=== PATIENT | female | born 1965 | race Caucasian/White ===

== ENCOUNTER 2016-07-02 13:29 | Inpatient (IN) | payer OTHER ==
[~2016-07-02] VITALS: Ht 160 cm; Wt 89.9 kg
[2016-07-02] MEDS ORDERED: ASPIRIN 325 MG TAB PO STA (14:20)
[2016-07-02] MEDS ORDERED: FUROSEMIDE 40 MG INJ IV STA (14:20)
[2016-07-02] MEDS ORDERED: NITROGLYCERIN 2% 1 GM OINT PKT TD STA (14:20)
[2016-07-02] MEDS ORDERED: FUROSEMIDE 40 MG INJ IV ONE (14:30)
[2016-07-02] MEDS ORDERED: SITA1TAB5 PO (14:44)
[2016-07-02] MEDS ORDERED: INSU300I SQ (14:45)
[2016-07-02] MEDS ORDERED: DIGO125T PO (14:45)
[2016-07-02] MEDS ORDERED: CARV25TA79 PO (14:46)
[2016-07-02] MEDS ORDERED: SIMV20TA97 PO (14:46)
[2016-07-02] MEDS ORDERED: WARF6TAB PO (14:47)
[2016-07-02] MEDS ORDERED: BENA5TAB2 PO (14:47)
[2016-07-02] MEDS ORDERED: OMEP20CA16 PO (14:47)
[2016-07-02 14:58] LABS: BASOPHILS % 0.1 % (0.0-2.0); EOSINOPHILS # 0.2 10^3/ul (0.0-0.5); EOSINOPHILS % 2.7 % (0.0-7.0); HEMOGLOBIN 10.7 g/dl (12.0-16.0); LYMPHOCYTES # 0.9 10^3/ul (0.8-2.9); LYMPHOCYTES % 12.3 % (15.0-51.0); MEAN CORPUSCULAR HEMOGLOBIN 27.6 pg (29.0-33.0); MEAN CORPUSCULAR HGB CONC 32.4 g/dl (32.0-37.0); MEAN CORPUSCULAR VOLUME 85.1 fl (82.0-101.0); MEAN PLATELET VOLUME 8.6 fl (7.4-10.4); MONOCYTE # 0.5 10^3/ul (0.3-0.9); MONOCYTES % 6.2 % (0.0-11.0); NEUTROPHIL # 5.9 10^3/ul (1.6-7.5); NEUTROPHILS % 78.7 % (39.0-77.0); PLATELET COUNT 214 10^3/UL (140-440); RED BLOOD COUNT 3.88 10^6/ul (4.20-5.40); RED CELL DISTRIBUTION WIDTH 16.2 % (11.5-14.5); UNCORRECTED WBC 7.5 10^3/ul (4.8-10.8); WHITE BLOOD COUNT 7.5 10^3/ul (4.8-10.8)
[2016-07-02 15:01] LABS: CONDITION 1; LH ANALYZER COMMENTS 1
--- NOTE | 2016-07-02 15:05 | RADRPT ---
PROCEDURE: Chest 1 views. CLINICAL INDICATION: Chest pain TECHNIQUE: AP views of the chest were obtained. COMPARISON: None. FINDINGS: The heart is large. Mediasternotomy wires are seen overlying the heart. Prominence of the left hilum is observed. Central pulmonary vascular congestion is observed. Scattered atelectasis is noted at the lung bases. No consolidations are identified. No pneumothorax is seen. Osseous structures ar e intact. IMPRESSION: Cardiomegaly. Pericardial effusion is not excluded. Prominence of the left hilum. This could reflect prominent vasculature.. Underlying hilar adenopat hy or mass is not excluded. Further characterization with CT chest is recommended. Central pulmonary vascular congestion. Atelectasis at the lung bases. RPTAT: AA .Billy Alvarez MD, Date Time Electronically viewed and signed by .Billy Alvarez MD, on 07/02/2016 15:04 .P/
[2016-07-02 15:10] LABS: INR 2.18; PARTIAL THROMBOPLASTIN TIME 35.1 Sec (25.0-35.0); PROTIME 24.5 Sec (12.2-14.2); PT RATIO 1.9
[2016-07-02 15:16] LABS: ALBUMIN 3.8 g/dl (3.3-4.9)
[2016-07-02 15:17] LABS: POTASSIUM 4.5 mmol/L (3.5-5.1)
[2016-07-02 15:19] LABS: ALBUMIN/GLOBULIN RATIO 1.22; BILIRUBIN,INDIRECT 0.7 mg/dl (0-1.1); BILIRUBIN,TOTAL 0.7 mg/dl (0.2-1.3); CREATININE 0.72 mg/dl (0.44-1.00); TOTAL PROTEIN 6.9 g/dl (6.1-8.1)
[2016-07-02 15:20] LABS: CALCIUM 9.1 mg/dl (8.4-10.2); CREATINE KINASE 42 IU/L (23-200)
[2016-07-02 15:29] LABS: CK-MB 0.26 ng/ml (0.0-2.4)
[2016-07-02 15:34] LABS: TROPONIN-I < 0.012 ng/ml (0.00-0.12)
--- NOTE | 2016-07-02 16:54 | ERA ---
ER Documentation Chief Complaint Date/Time DATE: 07/02/16 TIME: 16:50 Chief Complaint SOB X 1 week, referred to MD for possible fluid in lungs. HPI 51-year-old female history of hypertension, valvular heart disease on Coumadin who presents with shortness of breath. The patient describes PND orthopnea dyspnea on exertion and lower extremity swelling for approximately 1 week. She denies any fevers, chills, cough. No active chest pain. ROS All systems reviewed and are negative except as per history of present illness. Medications Home Meds Reported Medications Omeprazole* (Omeprazole*) 20 Mg Capsule.dr, 20 MG PO AC BREAKFAST, #30 CAP 07/02/16 Warfarin Sodium* (Coumadin*) 6 Mg Tablet, 6 MG PO DAILY, TAB 07/02/16 Benazepril Hcl* (Benazepril Hcl*) 5 Mg Tablet, 5 MG PO DAILY, #30 TAB 07/02/16 Carvedilol* (Carvedilol*) 25 Mg Tablet, 25 MG PO BID, #60 TAB 07/02/16 Simvastatin* (Zocor*) 20 Mg Tablet, 20 MG PO QHS, #30 TAB 07/02/16 Digoxin* (Digitek*) 125 Mcg Tablet, 0.125 MG PO DAILY, TAB 07/02/16 Insulin Glargine,Hum.rec.anlog (Cynthia Smith) 300 Unit/1 Ml Insuln.pen, 97 UNIT SQ QHS 07/02/16 Sitagliptin Phos/Metformin HCl (Janumet 50-1,000 mg Tablet) 1 Each Tablet, 1 EACH PO BID, TAB 07/02/16 Allergies Allergies: Coded Allergies: morphine (Verified Allergy, Unknown, 07/02/16) FmHx Family History: No diabetes Physical Exam Vitals Vital Signs Date Time Temp Pulse Resp B/P Pulse Ox O2 Delivery O2 Flow Rate FiO2 07/02/16 15:12 75 20 105/64 96 Room Air 07/02/16 13:57 97.5 98 16 129/69 96 Physical Exam General: Well developed, well nourished, no acute distress Head: Normocephalic, atraumatic. Eyes: Pupils equally reactive, EOM intact ENT: Moist mucous membranes Neck: Supple, no lymphadenopathy, JVD Respiratory: Rales at the bases bilaterally Cardiovascular: RRR, no murmurs, rubs, or gallops Abdominal: Soft, non-tender, non-distended, no peritoneal signs : Deferred MSK: Scant pitting bilateral edema, no unilateral swelling, 5/5 strength Neurologic: Alert and oriented, moving all extremities, normal speech, no focal weakness, no cerebellar signs Skin: No rash Psych: Normal mood Result Diagram: 07/02/16 1440 07/02/16 1440 Results 24 hrs Laboratory Tests Test 07/02/16 14:40 Activated Partial Thromboplast Time 35.1Sec Alanine Aminotransferase (ALT/SGPT) 30IU/L Albumin 3.8g/dl Albumin/Globulin Ratio 1.22 Alkaline Phosphatase 59IU/L Anion Gap 18 Aspartate Amino Transf (AST/SGOT) 33IU/L B-Type Natriuretic Peptide 1690PG/ML Basophils # 0.010^3/ul Basophils % 0.1% Blood Morphology Comment Blood Urea Nitrogen 19mg/dl Calcium Level 9.1mg/dl Carbon Dioxide Level 31mmol/L Chloride Level 100mmol/L Creatine Kinase 42IU/L Creatine Kinase Index 0.6 Creatinine 0.72mg/dl Creatinine Kinase MB (Mass) 0.26ng/ml Direct Bilirubin 0.00mg/dl Eosinophils # 0.210^3/ul Eosinophils % 2.7% Globulin 3.10g/dl Glucose Level 92mg/dl Hematocrit 33.0% Hemoglobin 10.7g/dl INR International Normalized Ratio 2.18 Indirect Bilirubin 0.7mg/dl Lymphocytes # 0.910^3/ul Lymphocytes % 12.3% Mean Corpuscular Hemoglobin 27.6pg Mean Corpuscular Hemoglobin Concent 32.4g/dl Mean Corpuscular Volume 85.1fl Mean Platelet Volume 8.6fl Monocytes # 0.510^3/ul Monocytes % 6.2% Neutrophils # 5.910^3/ul Neutrophils % 78.7% Nucleated Red Blood Cells # 0.010^3/ul Nucleated Red Blood Cells % 0.0/100WBC Platelet Count 87779^3/UL Potassium Level 4.5mmol/L Prothrombin Time 24.5Sec Prothrombin Time Ratio 1.9 Red Blood Count 3.8810^6/ul Red Cell Distribution Width 16.2% Sodium Level 144mmol/L Total Bilirubin 0.7mg/dl Total Protein 6.9g/dl Troponin I < 0.012ng/ml White Blood Count 7.510^3/ul Current Medications Medications (Trade) Dose Ordered Sig/Mallika Route PRN Reason Start Time Stop Time Status Last Admin Dose Admin Aspirin (Aspirin) 325 mg ONCE STAT PO 07/02/16 14:20 07/02/16 14:23 DC 07/02/16 15:07 Nitroglycerin (Nitroglycerin 2% Oint) 1 inch ONCE STAT TD 07/02/16 14:20 07/02/16 14:23 DC Furosemide (Lasix) 40 mg ONCE STAT IV 07/02/16 14:20 07/02/16 14:23 DC 07/02/16 15:16 Furosemide (Lasix) 40 mg ONCE ONCE IV 07/02/16 14:30 07/02/16 14:31 DC Procedures/MDM EKG, MONITORS, & DIAGNOSTIC IMAGING: EKG: I reviewed and interpreted a 12-lead EKG. Rhythm: Normal sinus rhythm Ectopy: None Intervals: No abnormalities ST segments: No elevations or depressions T waves: No contiguous inversions Chest x-ray: I reviewed and interpreted a 1 view of the chest Mediastinum: No enlargement Cardiac silhouette: cardiomegaly Airspace: Pulmonary edema Bones: No evidence of fracture LAB INTERPRETATION: Elevated BNP MEDICAL DECISION MAKING: The patient's clinical exam and presentation is very consistent with acute, new onset decompensated congestive heart failure. Low concern for pneumonia, pulmonary embolism. This is most likely related to underlying valvular disease rather than acute coronary syndrome. ER COURSE: The patient was given Lasix. She continues to be resting comfortably. No indication for BiPAP or nitroglycerin drip. The patient will benefit from inpatient hospitalization for risk stratification, echocardiogram and medication management and optimization. I kept the patient and/or family informed of laboratory and diagnostic imaging results throughout the emergency room course. DISPOSITION PLAN: Telemetry admission for management of CHF CONSULTATION: Accepting care team and consultations: I discussed the current laboratory data, diagnostic imaging and emergency care provided. Admitting team: Dr. Jaramillo Admitting team indication: Insurance directed Departure Diagnosis: Primary Impression: Congestive heart failure Qualified Code: I50.9 - Acute congestive heart failure, unspecified congestive heart failure type Condition: Stable LALO SCOTT MD Jul 02, 2016 16:54
[2016-07-02] MEDS ORDERED: ACETAMINOPHEN 325 MG TAB PO PRN ×2 (17:30→18:30)
[2016-07-02] MEDS ORDERED: ONDANSETRON 4 MG INJ IV PRN ×2 (17:30→18:30)
[2016-07-02] MEDS ORDERED: MAGNESIUM HYDROXIDE 30ML CUP PO PRN (18:30)
[2016-07-02] MEDS ORDERED: ALBUTEROL/IPRATROPIUM (NEB) 3 ML AMP HHN PRN (18:30)
[2016-07-02] MEDS ORDERED: NACL 0.9% 3 ML SYG IV SCH (18:30)
[2016-07-02] MEDS ORDERED: HYDROCODONE/APAP (5/325) TAB PO PRN (18:30)
[2016-07-02] MEDS ORDERED: NITROGLYCERIN (SL) 0.4 MG TAB SL PRN (18:30)
[2016-07-02] MEDS ORDERED: hydrALAzine 20 MG INJ IV PRN (18:30)
[2016-07-02] MEDS ORDERED: DOCUSATE SODIUM 100 MG CAP PO PRN (18:30)
[2016-07-02] MEDS ORDERED: morphine 2 MG INJ IV PRN (18:30)
[2016-07-02] MEDS ORDERED: NA PHOSPHATE/BIPHOS 133 ML ENEMA PR PRN (18:30)
[2016-07-02] MEDS ORDERED: LORAZEPAM 2 MG INJ IV PRN (18:30)
--- NOTE | 2016-07-02 20:02 | HP ---
DATE OF ADMISSION: 07/02/2016 This is a 51-year-old female. CHIEF COMPLAINT: Shortness of breath. HISTORY OF PRESENT ILLNESS: A 51-year-old female with past medical history of hypertension and valv ular heart disease, on Coumadin, who presents with shortness of breath symptoms that have been going on for the last 4 days. She has had some PND and positive orthopnea symptoms. She has been taking Coumadin at home. Did not take any new medications as well. She has noticed some lower extremity swelling as well for about the past week as well, but denies any significant chest pain, no headache s or dizziness or loss of consciousness, no fevers or chills, no nausea, vomiting, no diarrhea, no c onstipation. When she came into the ER today, she was found with elevated BNP levels of around 1600 and her chest x-ray did show signs of pulmonary congestion, CHF. The patient was given Lasix in th e ER. PAST MEDICAL HISTORY: As stated above. ALLERGIES: MORPHINE. HOME MEDICATIONS: Include: 1. Coumadin 6 mg daily. 2. Benazepril 5 mg daily. 3. Coreg 25 mg b.i.d. 4. Digoxin 0.125 mg daily. 5. Zocor 20 mg at bedtime. 6. Omeprazole 20 mg every morning. 7. She is on this glargine analog insulin 97 units at bedtime, and Janumet one tab p.o. b.i .d. PAST SURGICAL HISTORY: She has had heart valve surgery in the past. Heart surgery in the past, unc lear when. SOCIAL HISTORY: Negative for smoking, drinking, or IV drug abuse. FAMILY HISTORY: Noncontributory. PHYSICAL EXAMINATION: VITAL SIGNS: T-max 97.5, pulse of 75 to 98, respirations 16 to 20, blood pressure 105 to 129 systol ic over 64 to 69 diastolic, saturating at 96% on room air. GENERAL: The patient is lying in bed, answering questions appropriately, in mild distress. HEENT: Pupils equal, round, react to light. Extraocular muscles intact. NECK: Supple, no thyromegaly. LUNGS: Mild crackles heard at the bases bilaterally and positive rales as well. CARDIOVASCULAR: S1 and S2 heard. No rubs or gallops. ABDOMEN: Soft, nontender, nondistended. Normal bowel sounds. No rebound, guarding. MUSCULOSKELETAL: She has got about 1+ pitting edema bilateral lower extremities to the mid calves. NEUROLOGIC: No focal deficits. LABORATORIES: CBC is completely normal. Comprehensive metabolic panel was normal. BNP is 1690. C hest x-ray again shows central pulmonary vascular congestion. There is pericardial effusion, cannot be excluded a there is cardiomegaly. ASSESSMENT AND PLAN: This is a 51-year-old female coming in with PND, orthopnea, shortness of breath symptoms for the las t 3 or 4 days, and lower extremity edema, signs of congestive heart failure exacerbations. 1. Shortness of breath secondary to congestive heart failure. We will admit her to telemetry floor . We will get a cardiology consult, put her on Lasix IV, keep the head of the bed greater than 30 d egrees. Will hold her beta pa and LES inhibitor for now. She is in acute congestive heart felton lure exacerbation. We will get a 2D echocardiogram as well. Will check a TSH, A1c, and lipid panel as well. Will get a PT consult as well. 2. History of valvular disease, again status post valve replacement. We will get the echocardiogr am for further identification and she is on Coumadin for that, so we will continue Coumadin, check a n INR every morning. Right now her INR is 2.18. 3. Hypertension. Again, blood pressure is presently stable. Continue hydralazine p.r.n. We are h olding her LES inhibitor, beta pa since she is in acute failure. 4. Gastrointestinal prophylaxis. We will put her on PPI. 5. Deep venous thrombosis prophylaxis. Again, she is on Coumadin already. Dictated By: PIERCE LLAMAS Conf#: [id number] DID#: [id number]
--- NOTE | 2016-07-02 21:07 | RADRPT ---
PROCEDURE: CT Chest without contrast. CLINICAL INDICATION: Dyspnea and congestive heart failure. TECHNIQUE: CT scan of the chest without contrast was performed on a multidetector high-resolution CT scanner. Coronal and sagittal reformatted images were obtained from the axial source images. The total exam CTDI equals 14.79 mGy and the total exam DLP equals 517.34 mGy-cm. COMPARISON: Plain film chest dated today, earlier in the day. FINDINGS: Bilateral patchy ground-glass opacities and lucencies suggesting sequela of small airway disease. M ild bilateral dependent atelectasis, greater at the posterior left costophrenic angle. Mild mid lung atelectasis at the left heart border. Otherwise, there is no evident focal opacification, effusion , pneumothorax, edema, or nodules are seen. There is no pulmonary infiltrate. No mass lesion to gold ggest neoplasm is identified. The central tracheobronchial tree is clear. Nonspecific bilateral superior mediastinum shoddy adenopathy. Otherwise, the mediastinum is unremar kable without evidence for mass or bulky lymphadenopathy. The vascular structures of the mediastinu m are normal in course and caliber. Aortic vascular calcifications and coronary artery calcificatio ns are present. The heart size is enlarged, without evidence for pericardial thickening or effusion . The axillary regions, subpectoral regions, and supraclavicular regions are all unremarkable. The gold rrounding chest wall is unremarkable. Imaging obtained through the upper abdomen reveals partially visualized mild to moderate ascites, seen over the liver and spleen. The surrounding osseous structures are remarkable for degenerative spondylosis of the spine. No ost eolytic or osteoblastic lesion is detected. IMPRESSION: 1. Small right pleural effusion. 2. Cardiomegaly, without pericardial thickening or pericardial effusion. 3. Nonspecific bilateral superior mediastinum shoddy adenopathy. 4. Patchy ground-glass opacities lucencies in the bilateral lung suggest sequela of small airway di sease, otherwise nonspecific. 5. Bilateral dependent atelectasis, greater at the posterior left costophrenic angle. 6. Partially visualized mild to moderate ascites over the liver and spleen. RPTAT: [facility]U Pippa Cobb, Physician Date Time Electronically viewed and signed by Pippa Cobb Physician on 07/02/2016 21:07 RS/
[2016-07-02] MEDS: ATORVASTATIN 10 MG TAB PO SCH (21:54)
[2016-07-03] VITALS (7 sets, daily range): BP systolic 133–145; BP diastolic 63–72; PULSE 58–96; RESP 18–20; TEMP 98.6; Ht 160 cm; Wt 89.9 kg
[2016-07-03 02:41] LABS: CREATINE KINASE 35 IU/L (23-200)
[2016-07-03 02:53] LABS: CK-MB 0.32 ng/ml (0.0-2.4)
[2016-07-03 03:13] LABS: TROPONIN-I < 0.010 ng/ml (0.00-0.12)
[2016-07-03 06:21] LABS: INR 2.08; PROTIME 23.6 Sec (12.2-14.2); PT RATIO 1.8
[2016-07-03 06:27] LABS: POTASSIUM 4.2 mmol/L (3.5-5.1)
[2016-07-03 06:28] LABS: BASOPHILS % 0.3 % (0.0-2.0); EOSINOPHILS # 0.2 10^3/ul (0.0-0.5); HEMATOCRIT 31.4 % (37.0-47.0); HEMOGLOBIN 10.3 g/dl (12.0-16.0); LYMPHOCYTES # 1.1 10^3/ul (0.8-2.9); MEAN CORPUSCULAR HEMOGLOBIN 28.1 pg (29.0-33.0); MEAN CORPUSCULAR HGB CONC 32.8 g/dl (32.0-37.0); MEAN CORPUSCULAR VOLUME 85.8 fl (82.0-101.0); MEAN PLATELET VOLUME 8.5 fl (7.4-10.4); MONOCYTE # 0.5 10^3/ul (0.3-0.9); MONOCYTES % 8.2 % (0.0-11.0); NEUTROPHIL # 4.5 10^3/ul (1.6-7.5); NEUTROPHILS % 71.5 % (39.0-77.0); PLATELET COUNT 208 10^3/UL (140-440); RED BLOOD COUNT 3.66 10^6/ul (4.20-5.40); RED CELL DISTRIBUTION WIDTH 16.2 % (11.5-14.5); UNCORRECTED WBC 6.3 10^3/ul (4.8-10.8); WHITE BLOOD COUNT 6.3 10^3/ul (4.8-10.8)
[2016-07-03 06:30] LABS: CREATININE 0.83 mg/dl (0.44-1.00)
[2016-07-03 06:31] LABS: CALCIUM 8.7 mg/dl (8.4-10.2); MAGNESIUM 1.6 mg/dl (1.7-2.5); PHOSPHORUS 5.8 mg/dl (2.5-4.9)
[2016-07-03 06:32] LABS: CHOL/HDL RATIO 5.1 RATIO
[2016-07-03 06:37] LABS: CONDITION 1; LH ANALYZER COMMENTS 1
[2016-07-03 07:01] LABS: THYROID STIMULATING HORMONE 7.81 MIU/L (0.465-4.680)
[2016-07-03] MEDS ORDERED: FUROSEMIDE 40 MG INJ IV SCH (09:00)
[2016-07-03] MEDS: PANTOPRAZOLE (EC) 40 MG TAB PO SCH (10:08)
--- NOTE | 2016-07-03 10:29 | RADRPT ---
Echocardiogram Report Patient Name: ALICJA ALVARENGA Gender: Female Date: 1965 Study Date: 03-Jul-2016 Account Liaison Hospice: Javier Franklin RDCS Location: [facility] Ref. Physician: PIERCE ESPINOZA Quality: Adequate Procedures: Transthoracic echocardiogram with complete 2D, M-Mode, and doppler examination. Indications: Congestive Heart Failure. 2D/M Mode Doppler Measurement Value Normal Ranges Measurement Value Normal Ranges LVIDd 2D 5.2 3.5 - 5.6 cm AYAZ Vmax 2.9 cm2 LVIDs 2D 3.7 2.1 - 4.1 cm AYAZ VTI 2.9 cm2 LVPWd 2D 1.0 0.6 - 1.1 cm AV Peak Walter 1.2 m/sec IVSd 2D 0.8 0.6 - 1.1 cm AV Peak PG 5.6 mmHg AoR Diam 2D 2.8 2.0 - 3.7 cm LVOT Mean Walter 0.7 m/sec EDV 2D 131.7 cm3 LVOT Mean PG 2.0 mmHg ESV 2D 50.8 cm3 LVOT Peak Walter 0.9 m/sec LA Dimen 2D 5.0 2.3 - 4.0 cm LVOT Peak PG 3.2 mmHg LVOT Diam 2.2 cm LVOT VTI 21.6 cm MV PHT 144.1 msec MV Peak Walter 2.3 m/sec MV Peak PG 20.5 mmHg MV Mean Walter 1.3 m/sec MV Mean PG 7.8 mmHg MV PHT 144.1 msec MV VTI 60.0 cm MVA PHT 1.5 cm2 TR Peak Walter 3.6 m/sec TR Peak PG 52.2 mmHg RVSP 60.0 mmHg Findings Left Ventricle: Normal left ventricular cavity size. Normal left ventricular wall thickness. Mild left ventricular systolic dysfunction. Ejection fraction is visually estimated at 4550 %. Tissue Doppler/Mitral Doppler indices are indeterminate in this study due to the presence of mitral valve replacement. Resting Segmental Wall Motion Analysis: Abnormal septal motion consistent with prior cardiac surgery. D-shaped septum consistent with RV pressure/volume overload. Right Ventricle: Severe enlargement of right ventricle. Severe right ventricular hypokinesis. Flattened septum in systole and diastole consistent with increased RV pressure and volume overload. Left Atrium: There is severe enlargement of left atrium. Right Atrium: There is severe enlargement of right atrium. Mitral Valve: Mild mitral valve regurgitation. Mitral Valve Bio Prosthesis. Mitral valve Max Velocity 2.26 m/sec. MaxPG 20.50 mmHg. MeanPG 7.80 mmHg. Mitral Valve Area by PHT cm2. Bioprosthetic mitral valve with elevated gradients (peak/mean gradient of 20/8 mmHg). MVA by continuity equation is \R\1.2cm2. It would be useful to know what her baseline gradients are. Aortic Valve: Normal appearance of the aortic valve. No significant aortic stenosis or insufficiency. Tricuspid Valve: Normal appearance of the tricuspid valve. Estimated peak PA systolic pressure 67 mmHg. There is moderate to severe tricuspid regurgitation. Pulmonic Valve: There is mild pulmonic regurgitation. Pericardium: Normal pericardium with no significant pericardial effusion. Aorta: Normal aortic root. IVC: Dilated IVC without respiratory collapse consistent with elevated right atrial pressure. Conclusions 1.Normal left ventricular cavity size. Normal left ventricular wall thickness. Mild left ventricular systolic dysfunction. Ejection fraction is visually estimated at 45-50 %. Tissue Doppler/Mitral Doppler indices are indeterminate in this study due to the presence of mitral valve replacement. Abnormal septal motion consistent with prior cardiac surgery. D-shaped septum consistent with RV pressure/volume overload. 2.Severe enlargement of right ventricle. Severe right ventricular hypokinesis. 3.Bioprosthetic mitral valve with elevated gradients (peak/mean gradient of 20/8 mmHg). MVA by continuity equation is \R\1.2cm2 at a hear rate of 70 bpm. It would be useful to know what her baseline gradients are. There is mild regurgitation. 4.Moderate-severe tricuspid regurgitation. 5.Severe biatrial enlargement. 6.PAP estimated to be 67 mmHg based on RA pressure of 15 mmHg. Electronically Signed By: Scott Ricci 03-Jul-2016 10:28:53 -0800 Patient Name: ALICJA ALVARENGA Study Date: 03-Jul-[id number]
--- NOTE | 2016-07-03 10:49 | PN ---
Date/Time of Note Date/Time of Note DATE: 07/03/16 TIME: 10:44 Assessment/Plan VTE Prophylaxis VTE Prophylaxis Intervention: other (Coumadin) Lines/Catheters IV [facility] [place] Assessment/Plan Chief Complaint/Hosp Course ASSESSMENT AND PLAN: 51-year-old female coming in with PND, orthopnea, shortness of breath symptoms for the last 3 or 4 days, and lower extremity edema , signs of congestive heart failure exacerbation. 1. Shortness of breath - slightly improved. Suspect secondary to congestive heart failure. ECHO results noted (see procedure report) - continue telemetry floor care, f/u cardiology consult, discuss ECHO results (EF = 45%, RV enlargement, +TR) - component of pulm HTN? - continie Lasix IV, keep the head of the bed greater than 30 degrees. - holding her beta pa and LES inhibitor for now until CV eval and when acute CHF improves. - f/u PT consult rec's as well. 2. History of valvular disease, again status post valve replacement - apprears to be aortic valve. - continue Coumadin for that - f/u INR every morning. Right now her INR is 2.08 3. Hypertension. Again, blood pressure is presently stable. - Continue hydralazine p.r.n. - again, we are holding her LES inhibitor, beta pa since she is in acute failure. 4. Gastrointestinal prophylaxis - PPI. 5. Deep venous thrombosis prophylaxis. Again, she is on Coumadin already. Problems: Subjective 24 Hr Interval Summary Free Text/Dictation Less SOB, no acute events overnight, awaiting CV eval. Exam/Review of Systems Vital Signs Vitals Vital Signs Date Time Temp Pulse Resp B/P Pulse Ox O2 Delivery O2 Flow Rate FiO2 07/03/16 08:13 69 07/03/16 06:32 Nasal Cannula 2 07/03/16 05:30 98.6 19 129/63 94 Results Result Diagram: 07/03/16 0543 07/03/16 0543 Results 24 hrs Laboratory Tests Test 07/02/16 14:40 07/02/16 18:49 07/03/16 02:12 07/03/16 05:43 Activated Partial Thromboplast Time 35.1 H Alanine Aminotransferase (ALT/SGPT) 30 Albumin 3.8 Albumin/Globulin Ratio 1.22 Alkaline Phosphatase 59 Anion Gap 18 H 17 H Aspartate Amino Transf (AST/SGOT) 33 B-Type Natriuretic Peptide 1690 H Basophils # 0.0 0.0 Basophils % 0.1 0.3 Blood Morphology Comment Blood Urea Nitrogen 19 20 Calcium Level 9.1 8.7 Carbon Dioxide Level 31 31 Chloride Level 100 101 Creatine Kinase 42 35 Creatine Kinase Index 0.6 0.9 Creatinine 0.72 0.83 Creatinine Kinase MB (Mass) 0.26 0.32 Direct Bilirubin 0.00 Eosinophils # 0.2 0.2 Eosinophils % 2.7 3.0 Free Thyroxine 1.14 Globulin 3.10 Glucose Level 92 101 Hematocrit 33.0 L 31.4 L Hemoglobin 10.7 L 10.3 L INR International Normalized Ratio 2.18 2.08 Indirect Bilirubin 0.7 Lymphocytes # 0.9 1.1 Lymphocytes % 12.3 L 17.0 Mean Corpuscular Hemoglobin 27.6 L 28.1 L Mean Corpuscular Hemoglobin Concent 32.4 32.8 Mean Corpuscular Volume 85.1 85.8 Mean Platelet Volume 8.6 8.5 Monocytes # 0.5 0.5 Monocytes % 6.2 8.2 Neutrophils # 5.9 4.5 Neutrophils % 78.7 H 71.5 Nucleated Red Blood Cells # 0.0 0.0 Nucleated Red Blood Cells % 0.0 0.0 Platelet Count 214 208 Potassium Level 4.5 4.2 Prothrombin Time 24.5 H 23.6 H Prothrombin Time Ratio 1.9 1.8 Red Blood Count 3.88 L 3.66 L Red Cell Distribution Width 16.2 H 16.2 H Sodium Level 144 145 H Total Bilirubin 0.7 Total Protein 6.9 Troponin I < 0.012 < 0.010 White Blood Count 7.5 6.3 Bedside Glucose 69 L Cholesterol Level 108 Cholesterol/HDL Ratio 5.1 HDL Cholesterol 21 L Hemoglobin A1c 8.8 H LDL Cholesterol, Calculated 65 Magnesium Level 1.6 L Phosphorus Level 5.8 H Thyroid Stimulating Hormone (TSH) 7.810 H Triglycerides Level 112 Medications Medications Current Medications Ondansetron HCl (Zofran Inj) 4 mg Q6H PRN IV NAUSEA AND/OR VOMITING; Start 07/02 at 18:30 Acetaminophen (Tylenol Tab) 650 mg Q6H PRN PO PAIN LEVEL 1-3 OR FEVER; Start at 18:30 Acetaminophen/ Hydrocodone Bitart (Ransom (5/325)) 1 tab Q6H PRN PO MODERATE PAIN LEVEL 4-6; Start 07/02/16 at 18:30 Morphine Sulfate (morphine) 2 mg Q4H PRN IV SEVERE PAIN LEVEL 7-10; Start at 18:30; Status Future Hold Docusate Sodium (Colace) 100 mg Q12H PRN PO CONSTIPATION; Start 07/02/16 at 18: 30 Magnesium Hydroxide (Milk Of Mag) 30 ml DAILY PRN PO CONSTIPATION; Start at 18:30 Sodium Biphosphate/ Sodium Phosphate (Fleet Enema) 133 ml DAILY PRN MI CONSTIPATION; Start 07/02/16 at 18:30 Lorazepam (Ativan) 0.5 mg Q6H PRN IV ANXIETY; Start 07/02/16 at 18:30 Hydralazine HCl (Apresoline) 10 mg Q6H PRN IV ELEVATED BLOOD PRESSURE; Start at 18:30 Nitroglycerin (Nitroglycerin (Sl Tab) 0.4 Mg) 1 tab Q5M PRN SL ANGINA; Start at 18:30 Digoxin (Digoxin) 0.125 mg DAILY@13 PO ; Start 07/03/16 at 13:00 Insulin Glargine (Lantus) 97 unit HS SC ; Start 07/03/16 at 21:00 Atorvastatin Calcium (Lipitor) 10 mg QHS PO Last administered on 07/02/16t 21:54 ; Admin Dose 10 MG; Start 07/02/16 at 21:00 Warfarin Sodium (Coumadin) 6 mg DAILY@17 PO ; Start 07/03/16 at 17:00 Furosemide 40 mg 40 mg BID IV ; Start 07/03/16 at 21:00; Status UNV Magnesium Sulfate (Magnesium Sulfate 2 Gm/50 ml) 50 ml @ 25 mls/hr ONCE ONCE IVPB ; Start 07/03/16 at 11:00; Stop 07/03/16 at 12:59; Status UNV Miscellaneous Information (* Miscellaneous Pharmacy Order) HYPOGLYCEMIA PROTOCOL w... ONCE ONCE XX ; Start 07/03/16 at 11:00; Stop 07/03/16 at 11:01; Status UNV Miscellaneous Information (* Miscellaneous Pharmacy Order) Discontinue Glyburide , Glipizide,... ONCE ONCE XX ; Start 07/03/16 at 11:00; Stop 07/03/16 at 11:01; Status UNV Miscellaneous Information (* Miscellaneous Pharmacy Order) Discontinue all previ... ONCE ONCE XX ; Start 07/03/16 at 11:00; Stop 07/03/16 at 11:01; Status UNV Diagnostic Test (Pha) (Accucheck) 02 XX ; Start 07/04/16 at 02:00; Status UNV Procedures Procedures 2D ECHO (07/02/16) Conclusions 1. Normal left ventricular cavity size. Normal left ventricular wall thickness. Mild left ventricular systolic dysfunction. Ejection fraction is visually estimated at 45-50 %. Tissue Doppler/Mitral Doppler indices are indeterminate in this study due to the presence of mitral valve replacement. Abnormal septal motion consistent with prior cardiac surgery. D-shaped septum consistent with RV pressure/volume overload. 2. Severe enlargement of right ventricle. Severe right ventricular hypokinesis. 3. Bioprosthetic mitral valve with elevated gradients (peak/mean gradient of 20/8 mmHg). MVA by continuity equation is \R\1.2cm2 at a hear rate of 70 bpm. It would be useful to know what her baseline gradients are. There is mild regurgitation. 4. Moderate-severe tricuspid regurgitation. 5. Severe biatrial enlargement. 6. PAP estimated to be 67 mmHg based on RA pressure of 15 mmHg. PIERCE ESPINOZA Jul 03, 2016 10:49
--- NOTE | 2016-07-03 10:50 | CONS ---
Date/Time of Note Date/Time of Note DATE: 07/03/16 TIME: 10:34 Assessment/Plan Assessment/Plan Chief Complaint/Hosp Course Acute decompensated systolic and diastolic heart failure: EF 45-50% by echo. 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 Needs diuresis Bioprosthetic mitral valve: elevated gradients by echo with mean of 8 mmHg, MVA 1.2. Unclear if she has baseline elevated gradients or high due to heart failure Chronic atrial fibrillation: controlled rates. On coumadin -increase to lasix 40mg IV BID -coreg 6.25mg BID -digoxin -coumadin Problems: Consultation Date/Type/Reason Admit Date/Time Jul 02, 2016 at 17:29 Date of Consultation: Jul 03, 2016 Type of Consultation: Cardiology Reason for Consultation CHF Referring Provider: PIERCE ESPINOZA Hx of Present Illness 51 yo F with a h/o bioprosthetic mitral valve 2009 at [facility], chronic atrial fibrillation on coumadin, who presented with SOB, orthopnea, edema. The patient notes (through an language interpreter) that she has been having one week of worsening SOB, edema, orthopnea. No chest pain. 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 She does not take lasix at home. Currently feels slightly better after receiving lasix. per HPI Social History Smoking Status: Never smoker Exam/Review of Systems Vital Signs Vitals Vital Signs Date Time Temp Pulse Resp B/P Pulse Ox O2 Delivery O2 Flow Rate FiO2 07/03/16 08:13 69 07/03/16 06:32 Nasal Cannula 2 07/03/16 05:30 98.6 19 129/63 94 Exam Constitutional: alert, oriented Head: atraumatic, normocephalic Neck: jvd (10cm) Respiratory: crackles/rales, No clear to auscultation Cardiovascular: edema (2+), systolic murmur (2/6), No regular rate and rhythm (IORI) Gastrointestinal: non-tender, soft Musculoskeletal: nl extremities to inspection Extremities: normal pulses Neurological: nl mental status, nl speech Skin: No rash or lesions Results Result Diagram: 07/03/16 0543 07/03/16 0543 Results 24 hrs Laboratory Tests Test 07/02/16 14:40 07/02/16 18:49 07/03/16 02:12 07/03/16 05:43 Activated Partial Thromboplast Time 35.1 H Alanine Aminotransferase (ALT/SGPT) 30 Albumin 3.8 Albumin/Globulin Ratio 1.22 Alkaline Phosphatase 59 Anion Gap 18 H 17 H Aspartate Amino Transf (AST/SGOT) 33 B-Type Natriuretic Peptide 1690 H Basophils # 0.0 0.0 Basophils % 0.1 0.3 Blood Morphology Comment Blood Urea Nitrogen 19 20 Calcium Level 9.1 8.7 Carbon Dioxide Level 31 31 Chloride Level 100 101 Creatine Kinase 42 35 Creatine Kinase Index 0.6 0.9 Creatinine 0.72 0.83 Creatinine Kinase MB (Mass) 0.26 0.32 Direct Bilirubin 0.00 Eosinophils # 0.2 0.2 Eosinophils % 2.7 3.0 Free Thyroxine 1.14 Globulin 3.10 Glucose Level 92 101 Hematocrit 33.0 L 31.4 L Hemoglobin 10.7 L 10.3 L INR International Normalized Ratio 2.18 2.08 Indirect Bilirubin 0.7 Lymphocytes # 0.9 1.1 Lymphocytes % 12.3 L 17.0 Mean Corpuscular Hemoglobin 27.6 L 28.1 L Mean Corpuscular Hemoglobin Concent 32.4 32.8 Mean Corpuscular Volume 85.1 85.8 Mean Platelet Volume 8.6 8.5 Monocytes # 0.5 0.5 Monocytes % 6.2 8.2 Neutrophils # 5.9 4.5 Neutrophils % 78.7 H 71.5 Nucleated Red Blood Cells # 0.0 0.0 Nucleated Red Blood Cells % 0.0 0.0 Platelet Count 214 208 Potassium Level 4.5 4.2 Prothrombin Time 24.5 H 23.6 H Prothrombin Time Ratio 1.9 1.8 Red Blood Count 3.88 L 3.66 L Red Cell Distribution Width 16.2 H 16.2 H Sodium Level 144 145 H Total Bilirubin 0.7 Total Protein 6.9 Troponin I < 0.012 < 0.010 White Blood Count 7.5 6.3 Bedside Glucose 69 L Cholesterol Level 108 Cholesterol/HDL Ratio 5.1 HDL Cholesterol 21 L Hemoglobin A1c 8.8 H LDL Cholesterol, Calculated 65 Magnesium Level 1.6 L Phosphorus Level 5.8 H Thyroid Stimulating Hormone (TSH) 7.810 H Triglycerides Level 112 Medications Medications Current Medications Ondansetron HCl (Zofran Inj) 4 mg Q6H PRN IV NAUSEA AND/OR VOMITING; Start 1/4 /17 at 18:30 Acetaminophen (Tylenol Tab) 650 mg Q6H PRN PO PAIN LEVEL 1-3 OR FEVER; Start at 18:30 Acetaminophen/ Hydrocodone Bitart ([place] (5/325)) 1 tab Q6H PRN PO MODERATE PAIN LEVEL 4-6; Start 07/02/16 at 18:30 Morphine Sulfate (morphine) 2 mg Q4H PRN IV SEVERE PAIN LEVEL 7-10; Start at 18:30; Status Future Hold Docusate Sodium (Colace) 100 mg Q12H PRN PO CONSTIPATION; Start 07/02/16 at 18: 30 Magnesium Hydroxide (Milk Of Mag) 30 ml DAILY PRN PO CONSTIPATION; Start at 18:30 Sodium Biphosphate/ Sodium Phosphate (Fleet Enema) 133 ml DAILY PRN [place] CONSTIPATION; Start 07/02/16 at 18:30 Lorazepam (Ativan) 0.5 mg Q6H PRN IV ANXIETY; Start 07/02/16 at 18:30 Hydralazine HCl (Apresoline) 10 mg Q6H PRN IV ELEVATED BLOOD PRESSURE; Start at 18:30 Nitroglycerin (Nitroglycerin (Sl Tab) 0.4 Mg) 1 tab Q5M PRN SL ANGINA; Start at 18:30 Digoxin (Digoxin) 0.125 mg DAILY@13 PO ; Start 07/03/16 at 13:00 Insulin Glargine (Lantus) 97 unit HS SC ; Start 07/03/16 at 21:00 Atorvastatin Calcium (Lipitor) 10 mg QHS PO Last administered on 07/02/16 21:54 ; Admin Dose 10 MG; Start 07/02/16 at 21:00 Furosemide (Lasix) 40 mg DAILY IV Last administered on 07/03/16 10:09; Admin Dose 40 MG; Start 07/03/16 at 09:00 Warfarin Sodium (Coumadin) 6 mg DAILY@17 PO ; Start 07/03/16 at 17:00 OMR E[place]ON Jul 03, 2016 10:45
[2016-07-03] MEDS ORDERED: GLUCOSE GEL 15 GRAM TUBE PO PRN ×2 (11:00)
[2016-07-03] MEDS ORDERED: GLUCOSE GEL 15 GRAM TUBE BUCCAL PRN (11:00)
[2016-07-03] MEDS ORDERED: GLUCAGON 1 MG INJ IM PRN (11:00)
[2016-07-03] MEDS ORDERED: DEXTROSE 50% 50 ML SYRINGE IV PRN ×2 (11:00)
[2016-07-03] MEDS ORDERED: MAGNESIUM SULFATE 2 GM/50 ML 50 ML IVPB ONE (11:30)
[2016-07-03] MEDS: INSULIN ASPART [NOVOLOG] 3 ML PEN SC SCH ×3 (11:50→21:50)
[2016-07-03] MEDS: DIGOXIN 0.125 MG TAB PO SCH (15:58)
[2016-07-03] MEDS: WARFARIN 3 MG TAB PO SCH (17:00)
[2016-07-03] MEDS: FUROSEMIDE 40 MG INJ IV SCH (17:35)
[2016-07-03] MEDS: ATORVASTATIN 10 MG TAB PO SCH (20:52)
[2016-07-03] MEDS: INSULIN GLARGINE [LANtus] 3 ML PEN SC SCH (22:33)
[2016-07-04] VITALS (13 sets, daily range): BP systolic 126–148; BP diastolic 60–75; PULSE 64–95; RESP 18–20
[2016-07-04] MEDS: ACCUCHECK XX SCH (01:50)
[2016-07-04] MEDS: FUROSEMIDE 40 MG INJ IV SCH (05:41)
[2016-07-04 05:55] LABS: INR 1.69; PT RATIO 1.6
[2016-07-04] MEDS: INSULIN ASPART [NOVOLOG] 3 ML PEN SC SCH ×4 (07:55→21:51)
[2016-07-04 08:08] LABS: BASOPHILS % 0.5 % (0.0-2.0); EOSINOPHILS # 0.2 10^3/ul (0.0-0.5); EOSINOPHILS % 3.3 % (0.0-7.0); HEMATOCRIT 32.6 % (37.0-47.0); HEMOGLOBIN 10.6 g/dl (12.0-16.0); LYMPHOCYTES # 1.1 10^3/ul (0.8-2.9); LYMPHOCYTES % 21.2 % (15.0-51.0); MEAN CORPUSCULAR HEMOGLOBIN 27.9 pg (29.0-33.0); MEAN CORPUSCULAR HGB CONC 32.7 g/dl (32.0-37.0); MEAN CORPUSCULAR VOLUME 85.6 fl (82.0-101.0); MEAN PLATELET VOLUME 8.4 fl (7.4-10.4); MONOCYTE # 0.6 10^3/ul (0.3-0.9); MONOCYTES % 10.6 % (0.0-11.0); NEUTROPHIL # 3.4 10^3/ul (1.6-7.5); NEUTROPHILS % 64.4 % (39.0-77.0); PLATELET COUNT 209 10^3/UL (140-440); RED BLOOD COUNT 3.81 10^6/ul (4.20-5.40); RED CELL DISTRIBUTION WIDTH 16.4 % (11.5-14.5); UNCORRECTED WBC 5.3 10^3/ul (4.8-10.8); WHITE BLOOD COUNT 5.3 10^3/ul (4.8-10.8)
[2016-07-04 08:10] LABS: CONDITION 1; LH ANALYZER COMMENTS 1
[2016-07-04 08:31] LABS: CALCIUM 9.5 mg/dl (8.4-10.2); CREATININE 0.84 mg/dl (0.44-1.00)
[2016-07-04] MEDS: PANTOPRAZOLE (EC) 40 MG TAB PO SCH (08:54)
--- NOTE | 2016-07-04 10:09 | CONS ---
Date/Time of Note Date/Time of Note DATE: 07/04/16 TIME: 10:08 Assessment/Plan Assessment/Plan Chief Complaint/Hosp Course Acute decompensated systolic and diastolic heart failure: EF 45-50% by echo. 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 Needs diuresis but improving Bioprosthetic mitral valve: elevated gradients by echo with mean of 8 mmHg, MVA 1.2. Unclear if she has baseline elevated gradients or high due to heart failure Chronic atrial fibrillation: controlled rates. On coumadin -decrease to lasix 20mg IV BID -coreg 6.25mg BID -digoxin -coumadin Problems: Consultation Date/Type/Reason Admit Date/Time Jul 02, 2016 at 17:29 Initial Consult Date 07/03/16 Type of Consultation: Cardiology Referring Provider: PIERCE ESPINOZA 24 HR Interval Summary Free Text/Dictation No o/n events. Breathing better Exam/Review of Systems Vital Signs Vitals Vital Signs Date Time Temp Pulse Resp B/P Pulse Ox O2 Delivery O2 Flow Rate FiO2 07/04/16 08:29 94 07/04/16 07:19 97.4 20 130/61 92 07/04/16 04:00 Room Air 07/03/16 06:32 2 Intake and Output 07/03/16 07/03/16 07/04/16 14:59 22:59 06:59 Intake Total 80 ml Output Total 400 ml Balance 80 ml -400 ml Exam Constitutional: alert, oriented Head: atraumatic, normocephalic Neck: jvd (7cm) Respiratory: crackles/rales, No clear to auscultation Cardiovascular: edema (1+), regular rate and rhythm, systolic murmur (2/6) Gastrointestinal: non-tender, soft Neurological: nl speech, nl strength Results Result Diagram: 07/04/16 0743 07/04/16 0743 Results 24 hrs Laboratory Tests Test 07/03/16 12:08 07/03/16 17:15 07/03/16 20:50 07/04/16 01:28 Bedside Glucose 85 130 230 H 263 H Test 07/04/16 05:20 07/04/16 07:43 07/04/16 07:50 INR International Normalized Ratio 1.69 Magnesium Level 1.7 Prothrombin Time 20.0 H Prothrombin Time Ratio 1.6 Anion Gap 16 Basophils # 0.0 Basophils % 0.5 Blood Morphology Comment Blood Urea Nitrogen 21 H Calcium Level 9.5 Carbon Dioxide Level 36 H Chloride Level 96 L Creatinine 0.84 Eosinophils # 0.2 Eosinophils % 3.3 Glucose Level 122 Hematocrit 32.6 L Hemoglobin 10.6 L Lymphocytes # 1.1 Lymphocytes % 21.2 Mean Corpuscular Hemoglobin 27.9 L Mean Corpuscular Hemoglobin Concent 32.7 Mean Corpuscular Volume 85.6 Mean Platelet Volume 8.4 Monocytes # 0.6 Monocytes % 10.6 Neutrophils # 3.4 Neutrophils % 64.4 Nucleated Red Blood Cells # 0.0 Nucleated Red Blood Cells % 0.0 Platelet Count 209 Potassium Level 4.0 Red Blood Count 3.81 L Red Cell Distribution Width 16.4 H Sodium Level 144 White Blood Count 5.3 Bedside Glucose 125 Medications Medications Current Medications Ondansetron HCl (Zofran Inj) 4 mg Q6H PRN IV NAUSEA AND/OR VOMITING; Start 07/02 at 18:30 Acetaminophen (Tylenol Tab) 650 mg Q6H PRN PO PAIN LEVEL 1-3 OR FEVER Last administered on 07/04/16t 00:42; Admin Dose 650 MG; Start 07/02/16 at 18:30 Acetaminophen/ Hydrocodone Bitart ([place] (5/325)) 1 tab Q6H PRN PO MODERATE PAIN LEVEL 4-6; Start 07/02/16 at 18:30 Morphine Sulfate (morphine) 2 mg Q4H PRN IV SEVERE PAIN LEVEL 7-10; Start at 18:30; Status Future Hold Docusate Sodium (Colace) 100 mg Q12H PRN PO CONSTIPATION; Start 07/02/16 at 18: 30 Magnesium Hydroxide (Milk Of Mag) 30 ml DAILY PRN PO CONSTIPATION; Start at 18:30 Sodium Biphosphate/ Sodium Phosphate (Fleet Enema) 133 ml DAILY PRN [place] CONSTIPATION; Start 07/02/16 at 18:30 Lorazepam (Ativan) 0.5 mg Q6H PRN IV ANXIETY; Start 07/02/16 at 18:30 Hydralazine HCl (Apresoline) 10 mg Q6H PRN IV ELEVATED BLOOD PRESSURE; Start at 18:30 Nitroglycerin (Nitroglycerin (Sl Tab) 0.4 Mg) 1 tab Q5M PRN SL ANGINA; Start at 18:30 Digoxin (Digoxin) 0.125 mg DAILY@13 PO Last administered on 07/03/16 15:58; Admin Dose 0.125 MG; Start 07/03/16 at 13:00 Insulin Glargine (Lantus) 97 unit HS SC Last administered on 07/03/16 22:33; Admin Dose 97 UNIT; Start 07/03/16 at 21:00 Atorvastatin Calcium (Lipitor) 10 mg QHS PO Last administered on 07/03/16 20:52 ; Admin Dose 10 MG; Start 07/02/16 at 21:00 Warfarin Sodium (Coumadin) 6 mg DAILY@17 PO ; Start 07/03/16 at 17:00 Diagnostic Test (Pha) (Accucheck) 1 ea 02 XX Last administered on 07/04/16 01: 50; Admin Dose 1 EA; Start 07/04/16 at 02:00 Carvedilol (Coreg) 6.25 mg BID PO Last administered on 07/04/16 08:54; Admin Dose 6.25 MG; Start 07/03/16 at 11:30 Miscellaneous Information 1 ea NOTE XX ; Start 07/03/16 at 11:00 Glucose (Glutose) 15 gm Q15M PRN PO DECREASED GLUCOSE; Start 07/03/16 at 11:00 Glucose (Glutose) 22.5 gm Q15M PRN PO DECREASED GLUCOSE; Start 07/03/16 at 11:00 Dextrose (D50w Syringe) 25 ml Q15M PRN IV DECREASED GLUCOSE; Start 07/03/16 at 11:00 Dextrose (D50w Syringe) 50 ml Q15M PRN IV DECREASED GLUCOSE; Start 07/03/16 at 11:00 Glucagon (Glucagen) 1 mg Q15M PRN IM DECREASED GLUCOSE; Start 07/03/16 at 11:00 Glucose (Glutose) 15 gm Q15M PRN BUCCAL DECREASED GLUCOSE; Start 07/03/16 at 11: 00 MOR EASTON Jul 04, 2016 10:09
--- NOTE | 2016-07-04 11:30 | PN ---
Date/Time of Note Date/Time of Note DATE: 07/04/16 TIME: 11:26 Assessment/Plan VTE Prophylaxis VTE Prophylaxis Intervention: other (Coumadin) Lines/Catheters IV [facility] Urinary Cath still in place: No Assessment/Plan Chief Complaint/Hosp Course ASSESSMENT AND PLAN: 51-year-old female coming in with PND, orthopnea, shortness of breath symptoms for the last 3 or 4 days, and lower extremity edema , signs of congestive heart failure exacerbation. 1. Shortness of breath - slightly improved. Suspect secondary to congestive heart failure. ECHO results noted (see procedure report) - continue telemetry floor care, f/u cardiology consult, discuss ECHO results (EF = 45%, RV enlargement, +TR) - component of pulm HTN? - continue Lasix IV, now lowered to 20 mb IV BID, keep the head of the bed greater than 30 degrees. - on beta pa and digoxin as well now - f/u PT consult rec's as well. 2. History of valvular disease, again status post valve replacement - appears to be aortic valve. - continue Coumadin - f/u INR every morning. Right now her INR is 1.61, consider increased coumadin dose for today 3. Hypertension. Again, blood pressure is presently stable. - Continue hydralazine p.r.n. - again, we are holding her LES inhibitor, beta pa since she is in acute failure. 4. Gastrointestinal prophylaxis - PPI. 5. Deep venous thrombosis prophylaxis. Again, she is on Coumadin Problems: Subjective 24 Hr Interval Summary Free Text/Dictation Less SOB symptoms now. Seen by CV team this AM. Exam/Review of Systems Vital Signs Vitals Vital Signs Date Time Temp Pulse Resp B/P Pulse Ox O2 Delivery O2 Flow Rate FiO2 07/04/16 08:29 94 07/04/16 07:19 97.4 20 130/61 92 07/04/16 04:00 Room Air 07/03/16 06:32 2 Intake and Output 07/03/16 07/03/16 07/04/16 15:00 23:00 07:00 Intake Total 80 ml Output Total 400 ml Balance 80 ml -400 ml Exam GENERAL: The patient is lying in bed, answering questions appropriately, NAD HEENT: Pupils equal, round, react to light. Extraocular muscles intact. NECK: Supple, no thyromegaly. LUNGS: less crackles heard at the bases bilaterally and positive rales as well. CARDIOVASCULAR: S1 and S2 heard. No rubs or gallops. ABDOMEN: Soft, nontender, nondistended. Normal bowel sounds. No rebound, guarding. MUSCULOSKELETAL: trace pitting edema bilateral lower extremities to the mid calves. NEUROLOGIC: No focal deficits. Results Result Diagram: 07/04/16 0743 07/04/16 0743 Results 24 hrs Laboratory Tests Test 07/03/16 12:08 07/03/16 17:15 07/03/16 20:50 07/04/16 01:28 Bedside Glucose 85 130 230 H 263 H Test 07/04/16 05:20 07/04/16 07:43 07/04/16 07:50 07/04/16 11:11 INR International Normalized Ratio 1.69 Magnesium Level 1.7 Prothrombin Time 20.0 H Prothrombin Time Ratio 1.6 Anion Gap 16 Basophils # 0.0 Basophils % 0.5 Blood Morphology Comment Blood Urea Nitrogen 21 H Calcium Level 9.5 Carbon Dioxide Level 36 H Chloride Level 96 L Creatinine 0.84 Eosinophils # 0.2 Eosinophils % 3.3 Glucose Level 122 Hematocrit 32.6 L Hemoglobin 10.6 L Lymphocytes # 1.1 Lymphocytes % 21.2 Mean Corpuscular Hemoglobin 27.9 L Mean Corpuscular Hemoglobin Concent 32.7 Mean Corpuscular Volume 85.6 Mean Platelet Volume 8.4 Monocytes # 0.6 Monocytes % 10.6 Neutrophils # 3.4 Neutrophils % 64.4 Nucleated Red Blood Cells # 0.0 Nucleated Red Blood Cells % 0.0 Platelet Count 209 Potassium Level 4.0 Red Blood Count 3.81 L Red Cell Distribution Width 16.4 H Sodium Level 144 White Blood Count 5.3 Bedside Glucose 125 184 Medications Medications Current Medications Ondansetron HCl (Zofran Inj) 4 mg Q6H PRN IV NAUSEA AND/OR VOMITING; Start 07/02 at 18:30 Acetaminophen (Tylenol Tab) 650 mg Q6H PRN PO PAIN LEVEL 1-3 OR FEVER Last administered on 07/04/16t 00:42; Admin Dose 650 MG; Start 07/02/16 at 18:30 Acetaminophen/ Hydrocodone Bitart ([place] (5/325)) 1 tab Q6H PRN PO MODERATE PAIN LEVEL 4-6; Start 07/02/16 at 18:30 Morphine Sulfate (morphine) 2 mg Q4H PRN IV SEVERE PAIN LEVEL 7-10; Start at 18:30; Status Future Hold Docusate Sodium (Colace) 100 mg Q12H PRN PO CONSTIPATION; Start 07/02/16 at 18: 30 Magnesium Hydroxide (Milk Of Mag) 30 ml DAILY PRN PO CONSTIPATION; Start at 18:30 Sodium Biphosphate/ Sodium Phosphate (Fleet Enema) 133 ml DAILY PRN [place] CONSTIPATION; Start 07/02/16 at 18:30 Lorazepam (Ativan) 0.5 mg Q6H PRN IV ANXIETY; Start 07/02/16 at 18:30 Hydralazine HCl (Apresoline) 10 mg Q6H PRN IV ELEVATED BLOOD PRESSURE; Start at 18:30 Nitroglycerin (Nitroglycerin (Sl Tab) 0.4 Mg) 1 tab Q5M PRN SL ANGINA; Start at 18:30 Digoxin (Digoxin) 0.125 mg DAILY@13 PO Last administered on 07/03/16 15:58; Admin Dose 0.125 MG; Start 07/03/16 at 13:00 Insulin Glargine (Lantus) 97 unit HS SC Last administered on 07/03/16 22:33; Admin Dose 97 UNIT; Start 07/03/16 at 21:00 Atorvastatin Calcium (Lipitor) 10 mg QHS PO Last administered on 07/03/16 20:52 ; Admin Dose 10 MG; Start 07/02/16 at 21:00 Warfarin Sodium (Coumadin) 6 mg DAILY@17 PO ; Start 07/03/16 at 17:00 Diagnostic Test (Pha) (Accucheck) 1 ea 02 XX Last administered on 07/04/16 01: 50; Admin Dose 1 EA; Start 07/04/16 at 02:00 Carvedilol (Coreg) 6.25 mg BID PO Last administered on 07/04/16 08:54; Admin Dose 6.25 MG; Start 07/03/16 at 11:30 Miscellaneous Information 1 ea NOTE XX ; Start 07/03/16 at 11:00 Glucose (Glutose) 15 gm Q15M PRN PO DECREASED GLUCOSE; Start 07/03/16 at 11:00 Glucose (Glutose) 22.5 gm Q15M PRN PO DECREASED GLUCOSE; Start 07/03/16 at 11:00 Dextrose (D50w Syringe) 25 ml Q15M PRN IV DECREASED GLUCOSE; Start 07/03/16 at 11:00 Dextrose (D50w Syringe) 50 ml Q15M PRN IV DECREASED GLUCOSE; Start 07/03/16 at 11:00 Glucagon (Glucagen) 1 mg Q15M PRN IM DECREASED GLUCOSE; Start 07/03/16 at 11:00 Glucose (Glutose) 15 gm Q15M PRN BUCCAL DECREASED GLUCOSE; Start 07/03/16 at 11: 00 PIERCE ESPINOZA Jul 04, 2016 11:30
[2016-07-04] MEDS: DIGOXIN 0.125 MG TAB PO SCH (15:40)
[2016-07-04] MEDS: FUROSEMIDE 20 MG INJ IV SCH (18:00)
[2016-07-04] MEDS: WARFARIN 3 MG TAB PO SCH (19:33)
[2016-07-04] MEDS: ATORVASTATIN 10 MG TAB PO SCH (21:41)
[2016-07-04] MEDS: INSULIN GLARGINE [LANtus] 3 ML PEN SC SCH (21:51)
[2016-07-04] MEDS ORDERED: INSULIN ASPART [NOVOLOG] 3 ML PEN SC ONE (22:30)
[2016-07-05] VITALS (9 sets, daily range): BP systolic 108–150; BP diastolic 64–75; PULSE 63–87; RESP 20–21
[2016-07-05] MEDS: ACCUCHECK XX SCH (02:37)
[2016-07-05] MEDS: FUROSEMIDE 20 MG INJ IV SCH ×2 (06:12→17:26)
[2016-07-05] MEDS: INSULIN ASPART [NOVOLOG] 3 ML PEN SC SCH ×3 (07:55→17:02)
[2016-07-05] MEDS: PANTOPRAZOLE (EC) 40 MG TAB PO SCH (08:20)
[2016-07-05 09:25] LABS: BASOPHILS % 0.3 % (0.0-2.0); EOSINOPHILS # 0.2 10^3/ul (0.0-0.5); EOSINOPHILS % 2.9 % (0.0-7.0); HEMATOCRIT 32.7 % (37.0-47.0); HEMOGLOBIN 10.6 g/dl (12.0-16.0); LYMPHOCYTES # 1.2 10^3/ul (0.8-2.9); MEAN CORPUSCULAR HEMOGLOBIN 27.7 pg (29.0-33.0); MEAN CORPUSCULAR HGB CONC 32.6 g/dl (32.0-37.0); MEAN CORPUSCULAR VOLUME 85.1 fl (82.0-101.0); MEAN PLATELET VOLUME 8.7 fl (7.4-10.4); MONOCYTE # 0.5 10^3/ul (0.3-0.9); MONOCYTES % 8.2 % (0.0-11.0); NEUTROPHIL # 4.3 10^3/ul (1.6-7.5); NEUTROPHILS % 68.6 % (39.0-77.0); PLATELET COUNT 217 10^3/UL (140-440); RED BLOOD COUNT 3.84 10^6/ul (4.20-5.40); RED CELL DISTRIBUTION WIDTH 15.9 % (11.5-14.5); UNCORRECTED WBC 6.2 10^3/ul (4.8-10.8); WHITE BLOOD COUNT 6.2 10^3/ul (4.8-10.8)
[2016-07-05 09:26] LABS: CONDITION 1; LH ANALYZER COMMENTS 1
[2016-07-05 09:30] LABS: INR 1.31; PROTIME 16.4 Sec (12.2-14.2); PT RATIO 1.3
[2016-07-05 09:33] LABS: POTASSIUM 4.1 mmol/L (3.5-5.1)
[2016-07-05 09:36] LABS: CALCIUM 9.2 mg/dl (8.4-10.2); CREATININE 0.82 mg/dl (0.44-1.00)
--- NOTE | 2016-07-05 11:40 | CONS ---
Date/Time of Note Date/Time of Note DATE: 07/05/16 TIME: 11:38 Assessment/Plan Assessment/Plan Chief Complaint/Hosp Course Acute decompensated systolic and diastolic heart failure: EF 45-50% by echo. 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 Significantly better with diuresis Bioprosthetic mitral valve: elevated gradients by echo with mean of 8 mmHg, MVA 1.2. Unclear if she has baseline elevated gradients or high due to heart failure Chronic atrial fibrillation: controlled rates. 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 Would like to go home. Exam/Review of Systems Vital Signs Vitals Vital Signs Date Time Temp Pulse Resp B/P Pulse Ox O2 Delivery O2 Flow Rate FiO2 07/05/16 08:12 97.8 68 21 108/64 97 07/04/16 17:57 3.0 07/04/16 04:00 Room Air Intake and Output 07/04/16 07/04/16 07/05/16 15:00 23:00 07:00 Intake Total 250 ml 300 ml Output Total 1200 ml Balance 250 ml -900 ml Exam Constitutional: alert, oriented Psych: no complaints Head: atraumatic, normocephalic Neck: No jvd Respiratory: crackles/rales (very mild) Cardiovascular: edema (trace), systolic murmur, No regular rate and rhythm Gastrointestinal: non-tender, soft Results Result Diagram: 07/05/16 0910 07/05/16 0910 Results 24 hrs Laboratory Tests Test 07/04/16 21:44 07/04/16 21:48 07/05/16 02:23 07/05/16 07:54 Bedside Glucose 371 H 354 H 148 66 L Test 07/05/16 08:11 07/05/16 09:10 Bedside Glucose 70 Anion Gap 17 H Basophils # 0.0 Basophils % 0.3 Blood Morphology Comment Blood Urea Nitrogen 22 H Calcium Level 9.2 Carbon Dioxide Level 36 H Chloride Level 94 L Creatinine 0.82 Eosinophils # 0.2 Eosinophils % 2.9 Glucose Level 167 Hematocrit 32.7 L Hemoglobin 10.6 L INR International Normalized Ratio 1.31 Lymphocytes # 1.2 Lymphocytes % 20.0 Mean Corpuscular Hemoglobin 27.7 L Mean Corpuscular Hemoglobin Concent 32.6 Mean Corpuscular Volume 85.1 Mean Platelet Volume 8.7 Monocytes # 0.5 Monocytes % 8.2 Neutrophils # 4.3 Neutrophils % 68.6 Nucleated Red Blood Cells # 0.0 Nucleated Red Blood Cells % 0.0 Platelet Count 217 Potassium Level 4.1 Prothrombin Time 16.4 H Prothrombin Time Ratio 1.3 Red Blood Count 3.84 L Red Cell Distribution Width 15.9 H Sodium Level 143 White Blood Count 6.2 Medications Medications Current Medications Ondansetron HCl (Zofran Inj) 4 mg Q6H PRN IV NAUSEA AND/OR VOMITING; Start 07/02 at 18:30 Acetaminophen (Tylenol Tab) 650 mg Q6H PRN PO PAIN LEVEL 1-3 OR FEVER Last administered on 07/04/16 00:42; Admin Dose 650 MG; Start 07/02/16 at 18:30 Acetaminophen/ Hydrocodone Bitart ([place] (5/325)) 1 tab Q6H PRN PO MODERATE PAIN LEVEL 4-6; Start 07/02/16 at 18:30 Morphine Sulfate (morphine) 2 mg Q4H PRN IV SEVERE PAIN LEVEL 7-10; Start at 18:30; Status Future Hold Docusate Sodium (Colace) 100 mg Q12H PRN PO CONSTIPATION Last administered on 15:41; Admin Dose 100 MG; Start 07/02/16 at 18:30 Magnesium Hydroxide (Milk Of Mag) 30 ml DAILY PRN PO CONSTIPATION; Start at 18:30 Sodium Biphosphate/ Sodium Phosphate (Fleet Enema) 133 ml DAILY PRN [place] CONSTIPATION; Start 07/02/16 at 18:30 Lorazepam (Ativan) 0.5 mg Q6H PRN IV ANXIETY; Start 07/02/16 at 18:30 Hydralazine HCl (Apresoline) 10 mg Q6H PRN IV ELEVATED BLOOD PRESSURE; Start at 18:30 Nitroglycerin (Nitroglycerin (Sl Tab) 0.4 Mg) 1 tab Q5M PRN SL ANGINA; Start at 18:30 Digoxin (Digoxin) 0.125 mg DAILY@13 PO Last administered on 07/04/16 15:40; Admin Dose 0.125 MG; Start 07/03/16 at 13:00 Insulin Glargine (Lantus) 97 unit HS SC Last administered on 07/04/16 21:51; Admin Dose 97 UNIT; Start 07/03/16 at 21:00 Atorvastatin Calcium (Lipitor) 10 mg QHS PO Last administered on 07/04/16 21:41 ; Admin Dose 10 MG; Start 07/02/16 at 21:00 Warfarin Sodium (Coumadin) 6 mg DAILY@17 PO Last administered on 07/04/16 19:33 ; Admin Dose 6 MG; Start 07/03/16 at 17:00 Diagnostic Test (Pha) (Accucheck) 1 ea 02 XX Last administered on 07/05/16 02: 37; Admin Dose 1 EA; Start 07/04/16 at 02:00 Carvedilol (Coreg) 6.25 mg BID PO Last administered on 07/05/16 10:07; Admin Dose 6.25 MG; Start 07/03/16 at 11:30 Miscellaneous Information 1 ea NOTE XX ; Start 07/03/16 at 11:00 Glucose (Glutose) 15 gm Q15M PRN PO DECREASED GLUCOSE; Start 07/03/16 at 11:00 Glucose (Glutose) 22.5 gm Q15M PRN PO DECREASED GLUCOSE; Start 07/03/16 at 11:00 Dextrose (D50w Syringe) 25 ml Q15M PRN IV DECREASED GLUCOSE; Start 07/03/16 at 11:00 Dextrose (D50w Syringe) 50 ml Q15M PRN IV DECREASED GLUCOSE; Start 07/03/16 at 11:00 Glucagon (Glucagen) 1 mg Q15M PRN IM DECREASED GLUCOSE; Start 07/03/16 at 11:00 Glucose (Glutose) 15 gm Q15M PRN BUCCAL DECREASED GLUCOSE; Start 07/03/16 at 11: 00 MOR EASTON Jul 05, 2016 11:39
--- NOTE | 2016-07-05 13:36 | PDOCDIS ---
Discharge Instructions CONDITION Patient Condition: Stable HOME CARE INSTRUCTIONS: Diet Instructions: Low Fat /Cholesterol ACTIVITY: Activity Restrictions: Slowly Increase Activity FOLLOW UP/APPOINTMENTS Appointments Please take your medications as prescribed, and see your doctor in the clinic in 1 week. PIERCE ESPINOZA. Jul 05, 2016 13:36
[2016-07-05] MEDS ORDERED: CARV6.2579 PO (13:37)
[2016-07-05] MEDS ORDERED: FURO20TA3 PO (13:39)
[2016-07-05] MEDS: DIGOXIN 0.125 MG TAB PO SCH (13:45)
--- NOTE | 2016-07-05 14:19 | DS ---
DATE OF ADMISSION: 07/02/2016 DATE OF DISCHARGE: 07/05/2016 HISTORY OF PRESENT ILLNESS: A 51-year-old female originally admitted on 07/02/2016, being discharge d home on 07/05/2014. HOSPITAL COURSE: The patient came in with shortness of breath symptoms. She was found to have acut e CHF exacerbation. She was admitted to telemetry floor, seen by cardiology team during this hospit al stay, she had her INR checked because she does take Coumadin at home for also prior history of ao rtic valve replacement. Regarding her CHF symptoms, she had an echocardiogram performed that showed normal left ventricular cavity size, normal left ventricular wall thickness, mild left ventricular systolic dysfunction, ejection fraction was 45% to 50%. There was abnormal septal motion consistent with prior cardiac surgery, D-shaped septum consistent with right ventricular pressure or volume ov erload. There was also severe enlargement of the right ventricle, severe right ventricular hypokine sis. There was a bioprosthetic mitral valve, with elevated gradients noted, moderate to severe tric uspid regurg, severe biatrial enlargement. PAP estimated to be 67 mmHg pressure, but in any event h er BNP was elevated on admission around 1700. She was diuresed and she had adjustments made to her cardiac medications as well. She eventually had less shortness of breath symptoms. She diuresed we . She was able to ambulate and tolerate a p.o. diet and cardiology team recommended discharge tod as the patient's vital signs are stable and she will go home and in an improved condition. She needs to follow up with a switchboard inspector in 1 week. She will go home now with a new medical regim en includin. Coreg 6.25 mg b.i.d. 2. Lasix 20 mg daily. 3. Digoxin 0.125 mg daily. 4. Continue glargine insulin 97 units at bedtime. 5. Omeprazole 20 mg every morning. 6. Zocor 20 mg at bedtime. 7. Janumet 1 tab p.o. b.i.d. 8. Coumadin 6 mg daily. FINAL DIAGNOSES 1. Shortness of breath secondary to congestive heart failure exacerbation, acute decompensated syst olic and diastolic heart failure. 2. History of systolic and diastolic heart failure, baseline ejection fraction of 45% to 50% by ech o. 3. History of bioprosthetic mitral valve on Coumadin. 4. Chronic atrial fibrillation with rate controlled on Coumadin 5. Hypertension, essential. 6. Diabetes type 2. Of note, her A1c was found to be 8.8 on this admission. TIME SPENT TO DISCHARGE THE PATIENT: Forty minutes. Dictated By: PIERCE LLAMAS Conf#: [id number] DID#: [id number]
[2016-07-05] MEDS ORDERED: WARFARIN 7.5 MG TAB GTB ONE ×2 (15:00→17:00)
== END 2016-07-05 18:49 | disposition home or self-care (01) | DRG 293 ==
LOC: E/R 13:29 → TEL 17:29
PROVIDERS: ADMIT Hospitalist; ATTEND Hospitalist
DX: I50.43 Acute on chronic combined systolic (congestive) and diastolic (congestive) heart failure (principal); Z95.2 Presence of prosthetic heart valve; Z79.01 Long term (current) use of anticoagulants; I10 Essential (primary) hypertension; I48.2 Chronic atrial fibrillation; E11.9 Type 2 diabetes mellitus without complications
CPT/HCPCS: 71010; 71250; 80048; 80053; 80061; 82550; 82553; 82962; 83036; 83735; 83880; 84100; 84439; 84443; 84484; 85025; 85610; 85730; 93005; 93306; J1940; J1815; J3475

== ENCOUNTER 2017-02-23 16:41 | Inpatient (IN) | payer OTHER ==
[~2017-02-23] VITALS: Ht 152.4 cm; Wt 90.0 kg
[~2017-02-23 16:41] MED LIST: CARV6.2579 PO; DIGO125T PO; FURO20TA3 PO; INSU300I SQ; OMEP20CA16 PO; SIMV20TA PO; SITA1TAB5 PO; WARF6TAB PO
[2017-02-23] MEDS ORDERED: PROMETHAZINE 25 MG TAB PO ONE (18:30)
[2017-02-23 18:39] LABS: BASOPHILS % 0.6 % (0.0-2.0); EOSINOPHILS # 0.2 10^3/ul (0.0-0.5); EOSINOPHILS % 2.6 % (0.0-7.0); HEMATOCRIT 32.4 % (37.0-47.0); LYMPHOCYTES # 1.4 10^3/ul (0.8-2.9); LYMPHOCYTES % 20.9 % (15.0-51.0); MEAN CORPUSCULAR HEMOGLOBIN 27.3 pg (29.0-33.0); MEAN CORPUSCULAR HGB CONC 30.9 g/dl (32.0-37.0); MEAN CORPUSCULAR VOLUME 88.5 fl (82.0-101.0); MEAN PLATELET VOLUME 11.4 fl (7.4-10.4); MONOCYTE # 0.6 10^3/ul (0.3-0.9); MONOCYTES % 8.3 % (0.0-11.0); NEUTROPHILS % 67.3 % (39.0-77.0); PLATELET COUNT 190 10^3/UL (140-415); RED BLOOD COUNT 3.66 10^6/ul (4.20-5.40); RED CELL DISTRIBUTION WIDTH 14.9 % (11.5-14.5); WHITE BLOOD COUNT 6.6 10^3/ul (4.8-10.8)
[2017-02-23 18:43] LABS: INR 3.06; PROTIME 32.1 Sec (12.2-14.2); PT RATIO 2.5
[2017-02-23 18:44] LABS: PARTIAL THROMBOPLASTIN TIME 40.8 Sec (25.0-35.0)
[2017-02-23 18:45] LABS: ANION GAP 21 (8-16); BLOOD UREA NITROGEN 29 mg/dl (7-20); CALCIUM 9.6 mg/dl (8.4-10.2); CARBON DIOXIDE 26 mmol/L (21-31); CHLORIDE 102 mmol/L (97-110); CREATININE 0.98 mg/dl (0.44-1.00); GLUCOSE 115 mg/dl (70-220); POTASSIUM 4.7 mmol/L (3.5-5.1); SODIUM 144 mmol/L (135-144)
--- NOTE | 2017-02-23 18:49 | RADRPT ---
PROCEDURE: Chest x-ray CLINICAL INDICATION: Syncope TECHNIQUE: Chest single view COMPARISON: 07/02/2016 FINDINGS: There post thoracotomy changes. Stable moderate cardiomegaly is identified. There is enlargement o f the central pulmonary vessels suggesting pulmonary arterial hypertension. Mild ongoing interstiti al CHF is seen. No confluent pneumonias identified. Costophrenic angles are sharp. IMPRESSION: 1. Stable moderate cardiomegaly with ongoing mild CHF. 2. Enlarged central pulmonary arteries suggesting pulmonary arterial hypertension RPTAT: HH .Alex Montero MD, MD Date Time Electronically viewed and signed by .Alex Montero MD, MD on 02/23/2017 18:48 .W/
[2017-02-23 18:57] LABS: TROPONIN-I < 0.012 ng/ml (0.00-0.12)
[2017-02-23] MEDS ORDERED: MECL-77 PO (19:49)
[2017-02-23] MEDS ORDERED: PRED10TA PO (19:49)
[2017-02-23] MEDS ORDERED: METHYLPREDNISOLONE 125 MG INJ IV ONE (20:00)
--- NOTE | 2017-02-23 20:00 | ERD ---
ER Documentation Chief Complaint Date/Time DATE: 02/23/17 TIME: 19:57 Chief Complaint DIZZINESS, RINGING IN EARS, HEARING LOSS, WEAKNESS HPI 53-year-old female with a past medical history of hypertension , CHF,and valvular heart disease, on Coumadin presenting with room spinning dizziness since this morning. She has had associated ringing in her right ear. Now she has decreased hearing of her right ear. She states her symptoms are worse with moving her head to the right and trying to walk. Her symptoms improve when she keeps her head still and closes her eyes. She denies associated headache, focal weakness or numbness. No vision disturbance. No chest pain or worsening shortness of breath. No fevers or chills. She denies earache at this time. ROS All systems reviewed and are negative except as per history of present illness. Medications Home Meds Active Scripts Meclizine Hcl* (Meclizine Hcl*) 25 Mg Tablet, 25 MG PO Q8H Y for DIZZINESS, #30 TAB Prov:FELICIA CID MD 02/23/17 Prednisone* (Prednisone*) 10 Mg Tab, 10 MG PO DAILY, #35 TAB Take 60mg daily on Day 1-4, then 40 mg on day 5, 30mg on day 6, 20mg on day day 7, 10mg on day8, the 5mg on day 9. Prov:FELICIA CID MD 02/23/17 Furosemide* (Furosemide*) 20 Mg Tablet, 20 MG PO DAILY, #30 TAB 4 Refills Prov:PIERCE ESPINOZA S. 07/05/16 Carvedilol* (Carvedilol*) 6.25 Mg Tablet, 6.25 MG PO BID, #60 TAB Prov:PIERCE ESPINOZA S. 07/05/16 Reported Medications Omeprazole* (Omeprazole*) 20 Mg Capsule.dr, 20 MG PO AC BREAKFAST, #30 CAP 07/02/16 Warfarin Sodium* (Coumadin*) 6 Mg Tablet, 6 MG PO DAILY, TAB 07/02/16 Simvastatin* (Zocor*) 20 Mg Tablet, 20 MG PO QHS, #30 TAB 07/02/16 Digoxin* (Digitek*) 125 Mcg Tablet, 0.125 MG PO DAILY, TAB 07/02/16 Insulin Glargine,Hum.rec.anlog (Cynthia Smith) 300 Unit/1 Ml Insuln.pen, 97 UNIT SQ QHS 07/02/16 Sitagliptin Phos/Metformin HCl (Janumet 50-1,000 mg Tablet) 1 Each Tablet, 1 EACH PO BID, TAB 07/02/16 Allergies Allergies: Coded Allergies: morphine (Verified Allergy, Unknown, 07/02/16) PMhx/Soc History of Surgery: No Anesthesia Reaction: No Hx Neurological Disorder: No Hx Respiratory Disorders: No Hx Cardiac Disorders: Yes (Valve replacement, CHF) Hx Psychiatric Problems: No Hx Miscellaneous Medical Probl: Yes (GERD, HTN, hypothyroidism.) Hx Alcohol Use: No Hx Substance Use: No Hx Tobacco Use: No Smoking Status: Never smoker FmHx Family History: No coronary disease Physical Exam Vitals Vital Signs Date Time Temp Pulse Resp B/P Pulse Ox O2 Delivery O2 Flow Rate FiO2 02/23/17 19:36 97.6 60 18 129/60 94 Room Air 02/23/17 18:35 97.4 68 16 94/82 94 02/23/17 16:43 97.9 94 16 140/71 94 Physical Exam Const: Nontoxic, no significant distress Head: Atraumatic Eyes: Normal Conjunctiva, PERRLA, EOMI, right-sided Horizontalnystagmus ENT: Normal External Ears, Nose and Mouth. Neck: Full range of motion..~ No meningismus.JVD noted Resp: Bibasilar crackles present Cardio: Irregularly irregular rhythm, Systolic murmur Abd: Soft, non tender, non distended. Normal bowel sounds Skin: No petechiae or rashes Back: No midline or flank tenderness Ext: Trace bilateral lower extremity edema, no calf tenderness Neur: Awake and alert And oriented 3, cranial nerves intact, strength and sensations intact in all 4 extremities Psych: Normal Mood and Affect Result Diagram: 02/23/17 1725 02/23/17 1725 Results 24 hrs Laboratory Tests Test 02/23/17 17:25 White Blood Count 6.610^3/ul Red Blood Count 3.6610^6/ul Hemoglobin 10.0g/dl Hematocrit 32.4% Mean Corpuscular Volume 88.5fl Mean Corpuscular Hemoglobin 27.3pg Mean Corpuscular Hemoglobin Concent 30.9g/dl Red Cell Distribution Width 14.9% Platelet Count 40278^3/UL Mean Platelet Volume 11.4fl Neutrophils % 67.3% Lymphocytes % 20.9% Monocytes % 8.3% Eosinophils % 2.6% Basophils % 0.6% Nucleated Red Blood Cells % 0.0/100WBC Neutrophils # (Manual) 4.410^3/ul Lymphocytes # 1.410^3/ul Monocytes # 0.610^3/ul Eosinophils # 0.210^3/ul Basophils # 0.010^3/ul Nucleated Red Blood Cells # 0.010^3/ul Prothrombin Time 32.1Sec Prothrombin Time Ratio 2.5 INR International Normalized Ratio 3.06 Activated Partial Thromboplast Time 40.8Sec Sodium Level 144mmol/L Potassium Level 4.7mmol/L Chloride Level 102mmol/L Carbon Dioxide Level 26mmol/L Anion Gap 21 Blood Urea Nitrogen 29mg/dl Creatinine 0.98mg/dl Glucose Level 115mg/dl Calcium Level 9.6mg/dl Troponin I < 0.012ng/ml Current Medications Medications (Trade) Dose Ordered Sig/Mallika Route PRN Reason Start Time Stop Time Status Last Admin Dose Admin Promethazine HCl (Phenergan) 25 mg ONCE ONCE PO 02/23/17 18:30 02/23/17 18:31 DC 02/23/17 18:22 Methylprednisolone Sodium Succinate (Solu-Medrol) 80 mg ONCE ONCE IV 02/23/17 20:00 02/23/17 20:01 DC 02/23/17 20:00 Procedures/MDM EKG: Rate/Rhythm: Wide QRS at 93 bpm, regular QRS, ST, T-waves: Right bundle branch block, left posterior fascicular block Impression: No evidence of ischemia or arrhythmia Labs CBC: Mild anemia BMP: No evidence of electrolyte abnormality, renal failure, hypoglycemia INR elevated appropriately Troponin within normal limits Chest x-ray: IMPRESSION: 1. Stable moderate cardiomegaly with ongoing mild CHF. 2. Enlarged central pulmonary arteries suggesting pulmonary arterial hypertension RPTAT: HH .Alex Montero MD, Date Time Electronically viewed and signed by .Alex Montero MD, MD on 02/23/2017 18:48 MDM Patient is presenting with vertigo, likely peripheral. Her vitals were stable and she is afebrile. I do not suspect acute CHF exacerbation or acute coronary syndrome. I do not suspect carotid dissection. I have a low suspicion for central cause of vertigo. Patient was treated with meclizine with significant improvement. She was able to walk with no significant difficulty after this. She did not have evidence of orthostatic hypotension. Her labs were unremarkable. I have a suspicion that her symptoms are secondary to vestibular neuritis. A dose of Solu-Medrol was given here and I will put her on a 10 day course of tapered prednisone. I cautioned the patient about difficulty with blood sugar control while on the prednisone. I recommended follow-up with her primary care doctor in 2 days and a referral to an ENT doctor. Patient understands discharge plan. I will discharge her with prednisone and meclizine. Return precautions were discussed I believe she is stable for discharge at this time. Departure Diagnosis: Primary Impression: Peripheral vertigo involving right ear Condition: Stable Patient Instructions: Inner Ear Problems: Causes of Dizziness (Vertigo) Additional Instructions: Los sntomas que usted est teniendo son probablemente debido a la inflamacin del nervio en gold odo interno. Deja tay michael con gold mdico de atencin primaria para un seguimiento en 1-2 ledbetter. Necesitar tay derivacin a un otorrinolaring logo para revisar quintin odos. Vuelva a la ale de emergencias si tiene sntomas de empeoramiento. FELICIA CID MD Feb 23, 2017 20:00
[2017-02-23] MEDS ORDERED: DIGO250T PO (21:35)
[2017-02-23] MEDS ORDERED: LEVO50TA74 PO (21:35)
[2017-02-23] MEDS ORDERED: FURO40TA4 PO (21:36)
[2017-02-23] MEDS ORDERED: BENA20TA48 PO (21:36)
[2017-02-23] MEDS ORDERED: WARF6TAB PO (21:37)
[2017-02-23] MEDS ORDERED: CARV25TA79 PO (21:37)
[2017-02-23] MEDS ORDERED: WARF1TAB47 PO (21:45)
[2017-02-23] MEDS ORDERED: ONDANSETRON 4 MG INJ IV PRN (22:00)
[2017-02-23] MEDS ORDERED: ACETAMINOPHEN 325 MG TAB PO PRN (22:00)
[2017-02-23 22:30] VITALS: TEMP 97.6
--- NOTE | 2017-02-23 22:51 | RADRPT ---
PROCEDURE: CT Head without. CLINICAL INDICATION: Occipital headache and dizziness. TECHNIQUE: The study was performed utilizing a multi-slice, multidetector CT scanner. Direct spira l 1 mm axial sections were obtained through the head without the use of intravenous contrast materia l. 1 or more of the following dose reduction techniques were utilized: Automated exposure control, adjustment of the mA and/or kV according to patient's size, iterative reconstruction technique. Co kieran and sagittal reformations were obtained. The images were reviewed on a PACS workstation. RADIATION DOSE: CTDIvol: 43.2 mGyDLP: 871.4 mGy-cm COMPARISON: No prior studies are available for comparison. FINDINGS: There is no intracranial hemorrhage, extra-axial fluid collection, mass lesion, midline shift or hyd rocephalus. There is a well-circumscribed area of hypodensity involving the paramedian left posteri or cerebellar hemisphere, related to infarct, age indeterminate. There is a well-circumscribed CSF perivascular space involving the right sub insular region. The ventricles, sulci and cisterns are w ithin normal limits. The white matter is unremarkable. The mckeon-white matter differentiation is pr eserved. The basal cisterns are patent. The midline structures are intact. The orbits, calvarium and extracranial soft tissues are normal in appearance. The visualized paranasal sinuses, mastoid ai r cells and middle ear cavities are normally aerated. IMPRESSION: 1. Well circumscribed hypodensity involving the paramedian left posterior cerebellar hemisphere, mo st suggestive of chronic infarct. If clinical concern for acute infarct, MRI is recommended for fur ther evaluation. 2. No intracranial hemorrhage, extra-axial fluid collection, mass lesion or hydrocephalous. 3. Well-circumscribed area of hypodensity involving the right sub insular region, most suggestive o f prominent perivascular space. Attention on follow-up is recommended. The above findings were discussed with Patient's physician Dr. Ochoa by telephone on 02/23/2017 10 :50:15 PM. RPTAT: HGAS .Real Verma MD, Date Time Electronically viewed and signed by .Real Verma MD, on 02/23/2017 22:51 .S/
[2017-02-24] VITALS (14 sets, daily range): BP systolic 112–135; BP diastolic 57–76; PULSE 48–90; RESP 17–20; Ht 152.4 cm; Wt 90.0 kg
[2017-02-24] MEDS: ACCU-CHEK XX SCH (02:00)
[2017-02-24] MEDS ORDERED: MECLIZINE 25 MG TAB PO PRN (02:00)
[2017-02-24] MEDS ORDERED: HYDROCODONE/APAP (5/325) TAB PO PRN (02:00)
[2017-02-24] MEDS ORDERED: GLUCOSE GEL 15 GRAM TUBE BUCCAL PRN (03:00)
[2017-02-24] MEDS ORDERED: GLUCOSE GEL 15 GRAM TUBE PO PRN ×2 (03:00)
[2017-02-24] MEDS ORDERED: GLUCAGON 1 MG INJ IM PRN (03:00)
[2017-02-24] MEDS ORDERED: DEXTROSE 50% 50 ML SYRINGE IV PRN ×2 (03:00)
[2017-02-24] MEDS: ONDANSETRON 4 MG INJ IV PRN (04:34)
[2017-02-24] MEDS: ACETAMINOPHEN 325 MG TAB PO PRN ×3 (04:34→21:35)
[2017-02-24] MEDS ORDERED: SUMATRIPTAN 6 MG/0.5 ML INJ SC ONE (07:00)
[2017-02-24] MEDS: LEVOTHYROXINE 50 MCG TAB PO SCH (07:20)
[2017-02-24 07:39] LABS: BASOPHILS % 0.2 % (0.0-2.0); HEMATOCRIT 31.1 % (37.0-47.0); HEMOGLOBIN 9.6 g/dl (12.0-16.0); LYMPHOCYTES # 0.7 10^3/ul (0.8-2.9); LYMPHOCYTES % 12.5 % (15.0-51.0); MEAN CORPUSCULAR HEMOGLOBIN 27.4 pg (29.0-33.0); MEAN CORPUSCULAR HGB CONC 30.9 g/dl (32.0-37.0); MEAN CORPUSCULAR VOLUME 88.6 fl (82.0-101.0); MEAN PLATELET VOLUME 10.8 fl (7.4-10.4); MONOCYTES % 0.7 % (0.0-11.0); NEUTROPHILS % 86.1 % (39.0-77.0); PLATELET COUNT 171 10^3/UL (140-415); RED BLOOD COUNT 3.51 10^6/ul (4.20-5.40); RED CELL DISTRIBUTION WIDTH 14.9 % (11.5-14.5); WHITE BLOOD COUNT 5.6 10^3/ul (4.8-10.8)
[2017-02-24] MEDS ORDERED: INSULIN GLARGINE [LANtus] 3 ML PEN SC SCH (08:00)
[2017-02-24] MEDS ORDERED: INSULIN ASPART [NOVOLOG] 3 ML PEN SC SCH (08:00)
[2017-02-24 08:06] LABS: ALBUMIN 3.8 g/dl (3.3-4.9); ALBUMIN/GLOBULIN RATIO 1.08; BILIRUBIN,INDIRECT 0.4 mg/dl (0-1.1); BILIRUBIN,TOTAL 0.4 mg/dl (0.2-1.3); CALCIUM 9.2 mg/dl (8.4-10.2); CHOL/HDL RATIO 4.1 RATIO; CREATININE 0.91 mg/dl (0.44-1.00); POTASSIUM 5.3 mmol/L (3.5-5.1); TOTAL PROTEIN 7.3 g/dl (6.1-8.1)
[2017-02-24 08:33] LABS: THYROID STIMULATING HORMONE 2.42 MIU/L (0.465-4.680)
[2017-02-24] MEDS: FUROSEMIDE 40 MG TAB PO SCH ×2 (09:13→21:36)
[2017-02-24] MEDS: BENAZEPRIL 20 MG TAB PO SCH ×2 (09:14→21:35)
[2017-02-24] MEDS: FAMOTIDINE 20 MG TAB PO SCH (09:14)
[2017-02-24] MEDS: DIGOXIN 0.25 MG TAB PO SCH (09:14)
[2017-02-24 10:51] LABS: INR 2.42; PROTIME 26.6 Sec (12.2-14.2); PT RATIO 2.1
--- NOTE | 2017-02-24 10:57 | HP ---
Date/Time of Note Date/Time of Note DATE: 02/24/17 TIME: 10:40 Assessment/Plan VTE Prophylaxis VTE Prophylaxis Intervention: other (Coumadin) Lines/Catheters IV [facility]from [facility]): Saline Lock Assessment/Plan Assessment/Plan 1. Benign paroxysmal positional vertigo -will obtain MRI of the brain given the persistent nature of her symptoms as well as headache -Neurology consult 2. Headache See #1 3. History of A-fib -Continue Coreg, digoxin. Patient also on Coumadin 4. Hypertension -Adjust BP meds as needed 5. Diabetes -Insulin while in-house with adjustment as needed 6. History of CHF with systolic dysfunction -Continue home medication including diuretic 7. History of bioprosthetic mitral valve replacement -INR is greater than 3 -Continue Coumadin while monitoring INR HPI/ROS Admit Date/Time Admit Date/Time Feb 23, 2017 at 21:58 Hx of Present Illness This is a 52-year-old female with a history of hypertension diabetes A. fib, bioprosthetic mitral valve replacement, CHF with systolic dysfunction with EF of 45%. Patient presented to the ER complaining of headache and vertigo-like symptom. Headache is mainly localized in the occipital area. She also reported room spinning-sensation and ringing in her ear, which is worse with movement of her head. Patient was going to be discharged from the ER however she started complaining of shortness of breath and she was noted to have unsteady gait and as such a decision was made to admit the patient When she presented to the ER, CT of the head shows Well circumscribed hypodensity involving the paramedian left posterior cerebellar hemisphere, most suggestive of chronic infarct. and well-circumscribed area of hypodensity involving the right sub insular region, most suggestive of prominent perivascular space. . PMH/Family/Social Social History Smoking Status: Never smoker Exam/Review of Systems Vital Signs Vitals Vital Signs Date Time Temp Pulse Resp B/P Pulse Ox O2 Delivery O2 Flow Rate FiO2 02/24/17 08:12 61 02/24/17 07:57 97.6 17 119/61 100 02/24/17 01:00 Room Air 02/24/17 00:12 2.0 Intake and Output 02/23/17 02/23/17 02/24/17 15:00 23:00 07:00 Intake Total 240 ml Balance 240 ml Exam Constitutional: other (Mild distress due to headache) Head: atraumatic, normocephalic Eyes: EOMI, PERRL Respiratory: clear to auscultation, normal air movement Cardiovascular: nl pulses, regular rate and rhythm Gastrointestinal: non-tender, soft Extremities: normal pulses Neurological: nl speech, nl strength, other (No focal weakness) Labs Result Diagram: 02/24/1715 02/24/1715 Medications Medications Current Medications Benazepril HCl (Lotensin) 20 mg BID PO Last administered on 02/24/17 09:14; Admin Dose 20 MG; Start 02/24/17 at 09:00 Carvedilol (Coreg) 25 mg BID PO Last administered on 02/24/17 09:14; Admin Dose 25 MG; Start 02/24/17 at 09:00 Digoxin (Digoxin) 0.25 mg DAILY PO Last administered on 02/24/17 09:14; Admin Dose 0.25 MG; Start 02/24/17 at 09:00 Furosemide (Lasix) 40 mg BID PO Last administered on 02/24/17 09:13; Admin Dose 40 MG; Start 02/24/17 at 09:00 Meclizine HCl (Antivert) 25 mg Q8H PRN PO DIZZINESS; Start 02/24/17 at 02:00 Famotidine (Pepcid) 20 mg DAILY PO Last administered on 02/24/17 09:14; Admin Dose 20 MG; Start 02/24/17 at 09:00 Atorvastatin Calcium (Lipitor) 20 mg HS PO ; Start 02/24/17 at 21:00 Diagnostic Test (Pha) (Accu-Chek) 1 ea 02 XX ; Start 02/24/17 at 02:00 Insulin Glargine (Lantus) 12 unit DAILY@08 SC Last administered on 02/24/17 08 :06; Admin Dose 12 UNIT; Start 02/24/17 at 08:00 Acetaminophen (Tylenol Tab) 650 mg Q6H PRN PO PAIN AND OR ELEVATED TEMP Last administered on 02/24/17 04:34; Admin Dose 650 MG; Start 02/24/17 at 02:00 Ondansetron HCl (Zofran Inj) 4 mg Q4H PRN IV NAUSEA AND/OR VOMITING Last administered on 02/24/17 04:34; Admin Dose 4 MG; Start 02/24/17 at 02:00 Miscellaneous Information 1 ea NOTE XX ; Start 02/24/17 at 03:00 Glucose (Glutose) 15 gm Q15M PRN PO DECREASED GLUCOSE; Start 02/24/17 at 03:00 Glucose (Glutose) 22.5 gm Q15M PRN PO DECREASED GLUCOSE; Start 02/24/17 at 03: 00 Dextrose (D50w Syringe) 25 ml Q15M PRN IV DECREASED GLUCOSE; Start 02/24/17 at 03:00 Dextrose (D50w Syringe) 50 ml Q15M PRN IV DECREASED GLUCOSE; Start 02/24/17 at 03:00 Glucagon (Glucagen) 1 mg Q15M PRN IM DECREASED GLUCOSE; Start 02/24/17 at 03:00 Glucose (Glutose) 15 gm Q15M PRN BUCCAL DECREASED GLUCOSE; Start 02/24/17 at 03 :00 JAMEY MAC MD Feb 24, 2017 10:51
--- NOTE | 2017-02-24 11:19 | PN ---
Date/Time of Note Date/Time of Note DATE: 02/24/17 TIME: 11:19 Assessment/Plan VTE Prophylaxis VTE Prophylaxis Intervention: SCD's Lines/Catheters [facility] Saline [facility] Assessment/Plan Chief Complaint/Hosp Course 1.Vertigo with headache, unknown etiology -Start low dose Meclizine scheduled.Continue sumatriptan -PT eval -Orthostatic VS -F/u MRI of the brain 2. History of A-fib -Continue Coreg, digoxin. Repeat INR and dose Coumadin. 3. Hypertension. Stable -Continue antihypertensives 4. DMII -Insulin while in-house with adjustment as needed 5. History of CHF with systolic dysfunction -Continue home medication including diuretic 6. History of bioprosthetic mitral valve replacement -Continue Coumadin while monitoring INR 7. Obesity -Weight reduction advised. PLAN: Continue current treatment. Will reevaluate in AM . Case discussed with . Problems: Subjective 24 Hr Interval Summary Free Text/Dictation Patient with continued dizziness mainly positional. Having ear pain and headache. Exam/Review of Systems Vital Signs Vitals Vital Signs Date Time Temp Pulse Resp B/P Pulse Ox O2 Delivery O2 Flow Rate FiO2 02/24/17 08:12 61 02/24/17 07:57 97.6 17 119/61 100 02/24/17 01:00 Room Air 02/24/17 00:12 2.0 Intake and Output 02/23/17 02/23/17 02/24/17 15:00 23:00 07:00 Intake Total 240 ml Balance 240 ml Exam General: Obese female, not in any acute distress . HEENT: Normocephalic, Atraumatic, No laceration or hematoma; Eyes: PEERL, Conjunctiva clear, Anicteric sclera Neck: Supple without any lymphadenopathy, nontender, no JVD, no carotid bruits, trachea midline, no thyromegaly Cardiac: S1, S2 auscultated, regular rhythm and rate, no mumurs or gallop Pulmonary: Normal respiratory effort. Chest clear to auscultation bilaterally, no adventitious breath sounds GI: Abdomen normal to inspection. Soft, non tender, non- distended, no masses, no rebound tenderness or guarding. Bowel sounds active on all four quadrants Genitourinary: Deferred Extremities: Bilateral lower extremity edema, mild. No cyanosis. Pulses [2+] bilaterally. Full ROM on all four extremities. No focal weakness appreciated. Neurologic: Depressed affect. Alert to person, place, time, and situation. intact sensation. Skin: Clean,dry, and intact. No ecchymosis, no rashes, or lesions Results Result Diagram: 02/24/17 0715 02/24/17 0715 Results 24 hrs Laboratory Tests Test 02/23/17 17:25 02/24/17 01:02 02/24/17 02:17 02/24/17 07:15 White Blood Count 6.6 5.6 Red Blood Count 3.66 L 3.51 L Hemoglobin 10.0 L 9.6 L Hematocrit 32.4 L 31.1 L Mean Corpuscular Volume 88.5 88.6 Mean Corpuscular Hemoglobin 27.3 L 27.4 L Mean Corpuscular Hemoglobin Concent 30.9 L 30.9 L Red Cell Distribution Width 14.9 H 14.9 H Platelet Count 190 171 Mean Platelet Volume 11.4 #H 10.8 H Neutrophils % 67.3 86.1 H Lymphocytes % 20.9 12.5 L Monocytes % 8.3 0.7 Eosinophils % 2.6 0.0 Basophils % 0.6 0.2 Nucleated Red Blood Cells % 0.0 0.0 Neutrophils # (Manual) 4.4 4.8 Lymphocytes # 1.4 0.7 L Monocytes # 0.6 0.0 L Eosinophils # 0.2 0.0 Basophils # 0.0 0.0 Nucleated Red Blood Cells # 0.0 0.0 Prothrombin Time 32.1 #H Prothrombin Time Ratio 2.5 INR International Normalized Ratio 3.06 Activated Partial Thromboplast Time 40.8 H Sodium Level 144 144 Potassium Level 4.7 5.3 H Chloride Level 102 103 Carbon Dioxide Level 26 26 Anion Gap 21 H 20 H Blood Urea Nitrogen 29 H 31 H Creatinine 0.98 0.91 Glucose Level 115 244 #H Calcium Level 9.6 9.2 Troponin I < 0.012 < 0.012 < 0.012 Bedside Glucose 198 Total Bilirubin 0.4 Direct Bilirubin 0.00 Indirect Bilirubin 0.4 Aspartate Amino Transf (AST/SGOT) 27 Alanine Aminotransferase (ALT/SGPT) 27 Alkaline Phosphatase 78 Total Protein 7.3 Albumin 3.8 Globulin 3.50 H Albumin/Globulin Ratio 1.08 Triglycerides Level 78 Cholesterol Level 92 L LDL Cholesterol, Calculated 54 HDL Cholesterol 22 L Cholesterol/HDL Ratio 4.1 Thyroid Stimulating Hormone (TSH) 2.420 Test 02/24/17 07:57 02/24/17 09:51 Bedside Glucose 242 H Prothrombin Time 26.6 H Prothrombin Time Ratio 2.1 INR International Normalized Ratio 2.42 Medications Medications Current Medications Benazepril HCl (Lotensin) 20 mg BID PO Last administered on 02/24/17 09:14; Admin Dose 20 MG; Start 02/24/17 at 09:00 Carvedilol (Coreg) 25 mg BID PO Last administered on 02/24/17 09:14; Admin Dose 25 MG; Start 02/24/17 at 09:00 Digoxin (Digoxin) 0.25 mg DAILY PO Last administered on 02/24/17 09:14; Admin Dose 0.25 MG; Start 02/24/17 at 09:00 Furosemide (Lasix) 40 mg BID PO Last administered on 02/24/17 09:13; Admin Dose 40 MG; Start 02/24/17 at 09:00 Famotidine (Pepcid) 20 mg DAILY PO Last administered on 02/24/17 09:14; Admin Dose 20 MG; Start 02/24/17 at 09:00 Atorvastatin Calcium (Lipitor) 20 mg HS PO ; Start 02/24/17 at 21:00 Diagnostic Test (Pha) (Accu-Chek) 1 ea 02 XX ; Start 02/24/17 at 02:00 Acetaminophen (Tylenol Tab) 650 mg Q6H PRN PO PAIN AND OR ELEVATED TEMP Last administered on 02/24/17 04:34; Admin Dose 650 MG; Start 02/24/17 at 02:00 Ondansetron HCl (Zofran Inj) 4 mg Q4H PRN IV NAUSEA AND/OR VOMITING Last administered on 02/24/17 04:34; Admin Dose 4 MG; Start 02/24/17 at 02:00 Miscellaneous Information 1 ea NOTE XX ; Start 02/24/17 at 03:00 Glucose (Glutose) 15 gm Q15M PRN PO DECREASED GLUCOSE; Start 02/24/17 at 03:00 Glucose (Glutose) 22.5 gm Q15M PRN PO DECREASED GLUCOSE; Start 02/24/17 at 03: 00 Dextrose (D50w Syringe) 25 ml Q15M PRN IV DECREASED GLUCOSE; Start 02/24/17 at 03:00 Dextrose (D50w Syringe) 50 ml Q15M PRN IV DECREASED GLUCOSE; Start 02/24/17 at 03:00 Glucagon (Glucagen) 1 mg Q15M PRN IM DECREASED GLUCOSE; Start 02/24/17 at 03:00 Glucose (Glutose) 15 gm Q15M PRN BUCCAL DECREASED GLUCOSE; Start 02/24/17 at 03 :00 Meclizine HCl (Antivert) 12.5 mg TID PO ; Start 02/24/17 at 13:00 Miscellaneous Information 1 each BID PO ; Start 02/24/17 at 21:00; Status UNV Insulin Glargine (Lantus) 30 unit DAILY@08 SC ; Start 02/25/17 at 08:00 ANCA BURT NP Feb 24, 2017 11:19 ANCA BURT NP Feb 24, 2017 11:19 ANCA BURT NP Feb 24, 2017 11:19
[2017-02-24] MEDS: INSULIN ASPART [NOVOLOG] 3 ML PEN SC SCH ×5 (12:07→21:00)
[2017-02-24] MEDS: MECLIZINE 12.5 MG TAB PO SCH ×2 (12:08→21:35)
--- NOTE | 2017-02-24 12:11 | RADRPT ---
PROCEDURE: US Lower extremity Venous. CLINICAL INDICATION: Bilateral lower extremity swelling. TECHNIQUE: Multiple sonographic images of the bilateral lower extremity deep venous system was obt ained utilizing grayscale, color-flow, compressive sonography and doppler imaging with augmentation. The images were reviewed on a PACS workstation. COMPARISON: None. FINDINGS: There is normal compressibility and flow within the bilateral common femoral, deep femoral, superfic ial femoral and popliteal veins. The deep veins the calf were incompletely visualized. IMPRESSION: No sonographic evidence for deep venous thrombosis in the bilateral lower extremities. Physician Marky Date Time Electronically viewed and signed by Physician Marky on 02/24/2017 12:11 ML/
[2017-02-24] MEDS: LINAGLIPTIN 5 MG TABLET PO SCH (15:30)
[2017-02-24] MEDS: metFORMIN 500 MG TAB PO SCH (17:17)
[2017-02-24] MEDS: WARFARIN 2 MG TAB PO SCH (17:17)
--- NOTE | 2017-02-24 18:29 | RADRPT ---
PROCEDURE: MRI Brain without contrast. CLINICAL INDICATION: 52-year-old female with chronic vertigo, unsteady gait and headaches. No spe cific trauma. Patient prior history of infarct. TECHNIQUE: An MRI of the brain was performed without contrast utilizing the following sequences: Sagittal T1 weighted, sagittal FLAIR, axial T1, axial FLAIR, axial T2 weighted, axial diffusion weig hted (EPI technique [id number]), axial ADC mapping. The images were reviewed on a high-resolution PACS workstation. COMPARISON: CT head 02/03/2017 FINDINGS: Diffusion weighted sequences demonstrate no evidence of acute lacunar or lobar infarction. There is stable encephalomalacia involving the paramedian left cerebellar hemisphere, with mild gliosis in t he underlying white matter, consistent with remote prior infarct. No evidence of acute superimposed on chronic infarct. There are well-circumscribed areas of encephalomalacia involving the bilateral basal ganglia, which may be related to prominent perivascular spaces versus sequelae of remote prio r lacunar infarcts. There is CSF fluid signal intensity involving the medial right temporal lobe, m ost suggestive of prominent perivascular space versus benign choroidal fissure cyst. There is no int racranial hemorrhage, extra-axial fluid collection, mass lesion, midline shift or hydrocephalous. T he ventricles, sulci and cisterns are normal in size and configuration. The basal cisterns are paten t. The signal intensity is normal throughout the cerebrum, brain stem and cerebellum. Normal flow voids are visible the proximal intracranial arteries and dural sinuses, indicating patency. The mid line structures are intact. The paranasal sinuses, mastoid air cells and middle ear cavities are normally aerated. The orbits, calvarium and extracranial soft tissues are normal in appearance. IMPRESSION: 1. No acute intracranial abnormality. No intracranial hemorrhage, mass lesion, infarction or hydro cephalous. 2. Well-circumscribed encephalomalacia involving the paramedian left cerebellar hemisphere, related to remote prior infarct. No evidence of superimposed acute infarction. 3. Gliosis involving the lateral left frontal lobe, which may be related to remote prior cortical c ontusion versus infarct. 4. Well-circumscribed areas of CSF fluid signal intensity involving the bilateral basal ganglia, wh ich may be related to prominent perivascular spaces versus remote lacunar infarcts. 5. Prominent perivascular space involving the medial right temporal lobe, which may be related to p rominent perivascular space versus benign choroidal fissure cyst. RPTAT: HGAS .Real Verma MD, MD Date Time Electronically viewed and signed by .Real Verma MD, MD on 02/24/2017 18:29 .S/
[2017-02-24] MEDS: ATORVASTATIN 20 MG TAB PO SCH (21:35)
[2017-02-25] VITALS (12 sets, daily range): BP systolic 96–137; BP diastolic 57–69; PULSE 53–69; RESP 17–20
[2017-02-25] MEDS: ACCU-CHEK XX SCH (01:42)
[2017-02-25] MEDS: LEVOTHYROXINE 50 MCG TAB PO SCH (06:03)
[2017-02-25] MEDS: INSULIN ASPART [NOVOLOG] 3 ML PEN SC SCH ×7 (08:00→20:41)
[2017-02-25] MEDS: FUROSEMIDE 40 MG TAB PO SCH ×2 (09:26→20:41)
[2017-02-25] MEDS: MECLIZINE 12.5 MG TAB PO SCH ×3 (09:27→20:40)
[2017-02-25] MEDS: metFORMIN 500 MG TAB PO SCH ×2 (09:27→17:41)
[2017-02-25] MEDS: BENAZEPRIL 20 MG TAB PO SCH ×2 (09:27→20:41)
[2017-02-25] MEDS: LINAGLIPTIN 5 MG TABLET PO SCH (09:27)
[2017-02-25] MEDS: FAMOTIDINE 20 MG TAB PO SCH (09:27)
[2017-02-25] MEDS: DIGOXIN 0.25 MG TAB PO SCH (09:28)
[2017-02-25] MEDS: ACETAMINOPHEN 325 MG TAB PO PRN (09:40)
[2017-02-25] MEDS: INSULIN GLARGINE [LANtus] 3 ML PEN SC SCH (09:50)
--- NOTE | 2017-02-25 13:29 | PN ---
Date/Time of Note Date/Time of Note DATE: 02/25/17 TIME: 13:29 Assessment/Plan VTE Prophylaxis VTE Prophylaxis Intervention: SCD's Lines/Catheters IV Catheter Type (from [facility]): Saline Lock Assessment/Plan Chief Complaint/Hosp Course 1. Vertigo with headache - Persists -MRI negative for any acute ischemia. -Continue low-dose meclizine and sumatriptan. -Continue physical therapy evaluation. 2. History of A-fib -Continue Coreg, digoxin. Will get INR for today and dose Coumadin based on INR. 3. Hypertension. Stable -Continue antihypertensives 4. DMII -Insulin while in-house with adjustment as needed 5. History of CHF with systolic dysfunction -Continue home medication including diuretic 6. History of bioprosthetic mitral valve replacement -Continue Coumadin while monitoring INR 7. Obesity -Weight reduction advised. PLAN: With continuous dizziness and unable to participate with physical therapy. We are going to request neurology evaluation. Patient would also possibly need ENT evaluation. Case discussed with . Problems: Subjective 24 Hr Interval Summary Free Text/Dictation Patient continues to have dizziness and headache. Pending MRI. She is not actively participating with physical therapy evaluation due to the fear of falling. Exam/Review of Systems Vital Signs Vitals Vital Signs Date Time Temp Pulse Resp B/P Pulse Ox O2 Delivery O2 Flow Rate FiO2 02/25/17 12:16 53 02/25/17 11:57 98.0 18 137/62 93 02/24/17 01:00 Room Air 02/24/17 00:12 2.0 Intake and Output 02/24/17 02/24/17 02/25/17 15:00 23:00 07:00 Intake Total 840 ml 500 ml Balance 840 ml 500 ml Exam General: Obese female, not in any acute distress . HEENT: Normocephalic, Atraumatic, No laceration or hematoma; Eyes: PEERL, Conjunctiva clear, Anicteric sclera Neck: Supple without any lymphadenopathy, nontender, no JVD, no carotid bruits, trachea midline, no thyromegaly Cardiac: S1, S2 auscultated, regular rhythm and rate, no mumurs or gallop Pulmonary: Normal respiratory effort. Chest clear to auscultation bilaterally, no adventitious breath sounds GI: Abdomen normal to inspection. Soft, non tender, non- distended, no masses, no rebound tenderness or guarding. Bowel sounds active on all four quadrants Genitourinary: Deferred Extremities: Bilateral lower extremity edema, mild. No cyanosis. Pulses [2+] bilaterally. Full ROM on all four extremities. No focal weakness appreciated. Neurologic: Depressed affect. Alert to person, place, time, and situation. intact sensation. Skin: Clean,dry, and intact. No ecchymosis, no rashes, or lesions Results Result Diagram: 02/24/1715 02/24/17 0715 Results 24 hrs Laboratory Tests Test 02/24/17 17:18 02/24/17 21:39 02/25/17 07:49 02/25/17 09:39 Bedside Glucose 245 H 153 120 164 Test 02/25/17 12:44 Bedside Glucose 115 Medications Medications Current Medications Benazepril HCl (Lotensin) 20 mg BID PO Last administered on 02/25/17 09:27; Admin Dose 20 MG; Start 02/24/17 at 09:00 Carvedilol (Coreg) 25 mg BID PO Last administered on 02/24/17 09:14; Admin Dose 25 MG; Start 02/24/17 at 09:00 Digoxin (Digoxin) 0.25 mg DAILY PO Last administered on 02/25/17 09:28; Admin Dose 0.25 MG; Start 02/24/17 at 09:00 Furosemide (Lasix) 40 mg BID PO Last administered on 02/25/17 09:26; Admin Dose 40 MG; Start 02/24/17 at 09:00 Famotidine (Pepcid) 20 mg DAILY PO Last administered on 02/25/17 09:27; Admin Dose 20 MG; Start 02/24/17 at 09:00 Atorvastatin Calcium (Lipitor) 20 mg HS PO Last administered on 02/24/17 21:35 ; Admin Dose 20 MG; Start 02/24/17 at 21:00 Diagnostic Test (Pha) (Accu-Chek) 1 ea 02 XX ; Start 02/24/17 at 02:00 Acetaminophen (Tylenol Tab) 650 mg Q6H PRN PO PAIN AND OR ELEVATED TEMP Last administered on 02/25/17 09:40; Admin Dose 650 MG; Start 02/24/17 at 02:00 Ondansetron HCl (Zofran Inj) 4 mg Q4H PRN IV NAUSEA AND/OR VOMITING Last administered on 02/24/17 04:34; Admin Dose 4 MG; Start 02/24/17 at 02:00 Miscellaneous Information 1 ea NOTE XX ; Start 02/24/17 at 03:00 Glucose (Glutose) 15 gm Q15M PRN PO DECREASED GLUCOSE; Start 02/24/17 at 03:00 Glucose (Glutose) 22.5 gm Q15M PRN PO DECREASED GLUCOSE; Start 02/24/17 at 03: 00 Dextrose (D50w Syringe) 25 ml Q15M PRN IV DECREASED GLUCOSE; Start 02/24/17 at 03:00 Dextrose (D50w Syringe) 50 ml Q15M PRN IV DECREASED GLUCOSE; Start 02/24/17 at 03:00 Glucagon (Glucagen) 1 mg Q15M PRN IM DECREASED GLUCOSE; Start 02/24/17 at 03:00 Glucose (Glutose) 15 gm Q15M PRN BUCCAL DECREASED GLUCOSE; Start 02/24/17 at 03 :00 Meclizine HCl (Antivert) 12.5 mg TID PO Last administered on 02/25/17 09:27; Admin Dose 12.5 MG; Start 02/24/17 at 13:00 Linagliptin (Tradjenta) 5 mg DAILY PO Last administered on 02/25/17 09:27; Admin Dose 5 MG; Start 02/24/17 at 16:00 Insulin Glargine (Lantus) 30 unit DAILY@08 SC Last administered on 02/25/17 09 :50; Admin Dose 30 UNIT; Start 02/25/17 at 08:00 Warfarin Sodium (Coumadin) 2 mg DAILY@17 PO Last administered on 02/24/17 17: 17; Admin Dose 2 MG; Start 02/24/17 at 17:00 ANCA BURT NP Feb 25, 2017 13:29 ANCA BURT NP Feb 25, 2017 13:29
[2017-02-25 16:38] LABS: INR 2.42; PROTIME 26.6 Sec (12.2-14.2); PT RATIO 2.1
[2017-02-25] MEDS: WARFARIN 2 MG TAB PO SCH (17:41)
[2017-02-25] MEDS: ATORVASTATIN 20 MG TAB PO SCH (20:40)
--- NOTE | 2017-02-25 22:24 | CONS ---
Date/Time of Note Date/Time of Note DATE: 02/25/17 TIME: 22:23 Assessment/Plan Assessment/Plan Chief Complaint/Hosp Course neuroconsult dictated 61117. Sudden right hearing loss with vertigo.?etiology steroid taper, meclizine, ENT eval if available Problems: SANJEEV WELCH MD Feb 25, 2017 22:24
[2017-02-26] VITALS (12 sets, daily range): BP systolic 100–131; BP diastolic 57–68; PULSE 59–96; RESP 16–20
[2017-02-26] MEDS: ONDANSETRON 4 MG INJ IV PRN ×2 (01:13→08:50)
[2017-02-26] MEDS: ACCU-CHEK XX SCH (01:59)
--- NOTE | 2017-02-26 05:20 | CONS ---
DATE OF ADMISSION: 02/25/2017 DATE OF CONSULTATION: 02/25/2017 HISTORY OF PRESENT ILLNESS: The patient is a 52-year-old lady with extensive past medical history of hypertension, diabetes, atrial fibrillation, history of a bioprosthetic mitral valve replacement, congestive heart failure with ejection fraction of 45. The patient states that 3 days ago she developed dizziness, predominantly with movements, especially turning the head to the right, as well as complete hearing loss in the right ear. She states that she feels that all the sounds are more muffled gradually in the ear. Now she claims not to be able to hear on the right. MEDICATION: 1. The patient was placed on Meclizine 12.5 mg 3 times a day, which did not help her. 2. Lantus. 3. Lipitor. 4. Glucophage. 5. coumadin. 6. Tradjenta. 7. insulin. 8. NovoLog. 9. Lotensin. 10. Coreg. 11. Digoxin. 12. Lasix. 13. Pepcid. 14. Synthroid. IMAGING STUDIES: Patient had CAT scan followed by MRI of the brain. MRI of the brain shows absence of acute intracranial abnormality. It was done without contrast. 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 Also some area of gliosis in the lateral left frontal lobe. LABORATORY: The patient's labs show a hemoglobin A1c 7.4. Potassium 5.3, BUN 31, creatinine 0.91. Rest of complete metabolic profile within normal limits. Cholesterol 92, LDL 54. TSH within normal limits. 9.6 hemoglobin 31.4hematocrete, normal WBCs and platelets counts. PTT 26, INR 2.42. ALLERGIES: SHE IS ALLERGIC TO MORPHINE. SOCIAL HISTORY: No alcohol, tobacco, or drug use. FAMILY HISTORY: Not contributory. According to the patient, over 3 days in the hospital, she has not seen any improvement and she is not able to participate in physical therapy because whenever she gets up she starts feeling very dizzy and has to sit up or lie down again. PHYSICAL EXAMINATION: VITAL SIGNS: On examination, 98.1 temperature, 96 pulse, 20 respiration, 123/62 blood pressure. GENERAL APPEARANCE: Not in acute distress. Lying in bed. HEENT: Normocephalic, atraumatic head. NECK: No carotid bruits, lymphadenopathy, thyromegaly. LUNGS: Clear to auscultation bilaterally. HEART: Normal cardiac rhythm and sounds. ABDOMEN: Soft, nontender. EXTREMITIES: No cyanosis, clubbing, or edema. NEUROLOGIC: She is awake, alert, and oriented x3 with fluent speech. Cranial nerve examination was intact. Visual hollis bilaterally. Pupils reactive from 3-2 mm bilaterally. Extraocular movements intact without nystagmus. Symmetrical face. Preserved facial strength and sensation. Tongue was in midline. Palate elevates symmetrically. She has grossly impaired hearing to finger rub on the right. Normal hearing on the left. Motor strength examination preserved in all extremities. Normal bulk, tone and strength. Sensory examination grossly intact to light touch and pinprick. Deep tendon reflexes 2+ upper extremities and knees, absent ankle jerks. Downgoing response to plantar stimulation. Coordination is preserved on [id number] testing. No dysmetria or tremor. Gait was not assessed. Also Ruth-Hallpike maneuver was not performed because patient complains, and afraid actually, of severe dizziness with such movements and does not want to feel vertiginous. I forgot to mention that with the onset of her problems, she also complains of some right temporal occipital headaches. She stated that she had similar or somewhat similar episodes of dizziness 5-6 years ago transiently, which resolved, but at that time, it was not accompanied by hearing was. IMPRESSION: Acute vertigo with acute/sudden hearing loss. Etiology is not clear to me. It is not benign positional vertigo because it should not be accompanied by hearing problems. Also no evidence of stroke related. first of all, MRI did not show any acute stroke. Secondly usually strokes do not cause hearing impairment. Sudden hearing loss could be of idiopathic etiology but may be related to Meniere's disease, different autoimmune disorders, acoustic neuromas, and possibly viral etiology. I think it is reasonable to get a post-contrast MRI with attention to cerebellar pontine angles to exclude the presence of any mass lesions, though not very likely. I will increase meclizine 25 mg 3 times a day around the clock. Also, I will give the patient a short course of steroids p.o. for maybe 10 days, 60 mg daily for 3 days, 40 for 3 days, 20 for 3 days then stop. Patient could benefit from seeing an ENT specialist. I do not know if any one available in this hospital. Thank you much for this interesting consultation. Dictated By: Farooq Silvestre MD /trey/carlos /Document#: [id number] GER
[2017-02-26] MEDS: LEVOTHYROXINE 50 MCG TAB PO SCH (06:56)
[2017-02-26] MEDS: INSULIN ASPART [NOVOLOG] 3 ML PEN SC SCH ×7 (08:00→20:42)
[2017-02-26 08:29] LABS: INR 2.09; PROTIME 23.7 Sec (12.2-14.2); PT RATIO 1.9
[2017-02-26] MEDS: FUROSEMIDE 40 MG TAB PO SCH ×2 (08:38→20:39)
[2017-02-26] MEDS: BENAZEPRIL 20 MG TAB PO SCH ×2 (08:39→20:40)
[2017-02-26] MEDS: LINAGLIPTIN 5 MG TABLET PO SCH (08:41)
[2017-02-26] MEDS: metFORMIN 500 MG TAB PO SCH ×2 (08:41→17:42)
[2017-02-26] MEDS: FAMOTIDINE 20 MG TAB PO SCH (08:41)
[2017-02-26] MEDS: MECLIZINE 12.5 MG TAB PO SCH ×3 (08:42→20:40)
[2017-02-26] MEDS: predniSONE 20 MG TAB PO SCH (08:44)
[2017-02-26] MEDS: INSULIN GLARGINE [LANtus] 3 ML PEN SC SCH (09:10)
--- NOTE | 2017-02-26 11:57 | PN ---
Date/Time of Note Date/Time of Note DATE: 02/26/17 TIME: 11:47 Assessment/Plan VTE Prophylaxis VTE Prophylaxis Intervention: SCD's Lines/Catheters IV [facility] (from [facility]): Saline Lock Assessment/Plan Chief Complaint/Hosp Course 1. Vertigo with Headache/ hearing loss, etiology unknown. Dizziness improved. -Neurology eval appreciated. Spoke with ENT,'s office and recommended outpatient evaluation! -Continue Meclizine and sumatriptan. Started on steroids by neurology. -PT eval appreciated and recommended snf facility versus PT -MRI auditory canal has been requested 2. History of A-fib -Continue Coreg, digoxin. Coumadin 3 mg today. Patient takes 6 mg of Coumadin at home. We will monitor INR closely. 3. Hypertension. Stable -Continue antihypertensives 4. DMII -Insulin while in-house with adjustment as needed 5. History of CHF with systolic dysfunction -Continue home medication including diuretic 6. History of bioprosthetic mitral valve replacement -Continue Coumadin while monitoring INR 7. Obesity -Weight reduction advised. 8. Self-care impairment secondary to #1. Continue with physical appendectomy. Discharge planning to snf facility for further comprehensive interdisciplinary therapy. PLAN: I spoke with ENT, Dr. Mulligan office and they think that patient's condition does not meet criteria for inpatient evaluation and she can be followed up at their office. They also gave me an appointment today at 1:30 PM. However, patient with impairment in self-care secondary to her disease condition and is unsafe to send her home for outpatient clinic follow-up today. Patient's daughter also refused to take her home with home health and follow- up ENT clinic as outpatient today. As per office staff, Dr. Villatoro will not be able to see her any other days other than today's appointment. Therefore, we are going to request management involvement in discharge planning to snf facility along with outpatient ENT follow-up based on her insurance status for hearing loss when she is more medically stable. Case discussed with . Problems: Subjective 24 Hr Interval Summary Free Text/Dictation She had physical therapy evaluation. Recommended home health physical therapy versus [facility]pc. Patient has very poor participation with physical therapy as she is still afraid of having dizziness and does not want to get up from bed. Exam/Review of Systems Vital Signs Vitals Vital Signs Date Time Temp Pulse Resp B/P Pulse Ox O2 Delivery O2 Flow Rate FiO2 02/26/17 08:34 96 02/26/17 07:55 98.2 16 129/67 92 02/24/17 01:00 Room Air 02/24/17 00:12 2.0 Intake and Output 02/25/17 02/25/17 02/26/17 15:00 23:00 07:00 Intake Total 800 ml 300 ml Balance 800 ml 300 ml Exam General: Obese female, not in any acute distress . HEENT: Normocephalic, Atraumatic, No laceration or hematoma; Eyes: PEERL, Conjunctiva clear, Anicteric sclera Neck: Supple without any lymphadenopathy, nontender, no JVD, no carotid bruits, trachea midline, no thyromegaly Cardiac: S1, S2 auscultated, regular rhythm and rate, no mumurs or gallop Pulmonary: Normal respiratory effort. Chest clear to auscultation bilaterally, no adventitious breath sounds GI: Abdomen normal to inspection. Soft, non tender, non- distended, no masses, no rebound tenderness or guarding. Bowel sounds active on all four quadrants Genitourinary: Deferred Extremities: Bilateral lower extremity edema, mild. No cyanosis. Pulses [2+] bilaterally. Full ROM on all four extremities. No focal weakness appreciated. Neurologic: Depressed affect. Alert to person, place, time, and situation. intact sensation. Skin: Clean,dry, and intact. No ecchymosis, no rashes, or lesions Results Result Diagram: 02/24/17 0715 02/24/17 0715 Results 24 hrs Laboratory Tests Test 02/25/17 12:44 02/25/17 15:22 02/25/17 17:04 02/25/17 20:40 Bedside Glucose 115 98 85 Prothrombin Time 26.6 H Prothrombin Time Ratio 2.1 INR International Normalized Ratio 2.42 Test 02/26/17 07:31 02/26/17 07:47 Prothrombin Time 23.7 H Prothrombin Time Ratio 1.9 INR International Normalized Ratio 2.09 Bedside Glucose 95 Medications Medications Current Medications Benazepril HCl (Lotensin) 20 mg BID PO Last administered on 02/26/17 08:39; Admin Dose 20 MG; Start 02/24/17 at 09:00 Carvedilol (Coreg) 25 mg BID PO Last administered on 02/26/17 08:43; Admin Dose 25 MG; Start 02/24/17 at 09:00 Furosemide (Lasix) 40 mg BID PO Last administered on 02/26/17 08:38; Admin Dose 40 MG; Start 02/24/17 at 09:00 Famotidine (Pepcid) 20 mg DAILY PO Last administered on 02/26/17 08:41; Admin Dose 20 MG; Start 02/24/17 at 09:00 Atorvastatin Calcium (Lipitor) 20 mg HS PO Last administered on 02/25/17 20:40 ; Admin Dose 20 MG; Start 02/24/17 at 21:00 Diagnostic Test (Pha) (Accu-Chek) 1 ea 02 XX ; Start 02/24/17 at 02:00 Acetaminophen (Tylenol Tab) 650 mg Q6H PRN PO PAIN AND OR ELEVATED TEMP Last administered on 02/25/17 09:40; Admin Dose 650 MG; Start 02/24/17 at 02:00 Ondansetron HCl (Zofran Inj) 4 mg Q4H PRN IV NAUSEA AND/OR VOMITING Last administered on 02/26/17 08:50; Admin Dose 4 MG; Start 02/24/17 at 02:00 Miscellaneous Information 1 ea NOTE XX ; Start 02/24/17 at 03:00 Glucose (Glutose) 15 gm Q15M PRN PO DECREASED GLUCOSE; Start 02/24/17 at 03:00 Glucose (Glutose) 22.5 gm Q15M PRN PO DECREASED GLUCOSE; Start 02/24/17 at 03: 00 Dextrose (D50w Syringe) 25 ml Q15M PRN IV DECREASED GLUCOSE; Start 02/24/17 at 03:00 Dextrose (D50w Syringe) 50 ml Q15M PRN IV DECREASED GLUCOSE; Start 02/24/17 at 03:00 Glucagon (Glucagen) 1 mg Q15M PRN IM DECREASED GLUCOSE; Start 02/24/17 at 03:00 Glucose (Glutose) 15 gm Q15M PRN BUCCAL DECREASED GLUCOSE; Start 02/24/17 at 03 :00 Linagliptin (Tradjenta) 5 mg DAILY PO Last administered on 02/26/17 08:41; Admin Dose 5 MG; Start 02/24/17 at 16:00 Insulin Glargine (Lantus) 30 unit DAILY@08 SC Last administered on 02/26/17 09 :10; Admin Dose 30 UNIT; Start 02/25/17 at 08:00 Warfarin Sodium (Coumadin) 2 mg DAILY@17 PO Last administered on 02/25/17 17: 41; Admin Dose 2 MG; Start 02/24/17 at 17:00 Meclizine HCl (Antivert) 25 mg TID PO Last administered on 02/26/17 08:42; Admin Dose 25 MG; Start 02/26/17 at 09:00 Prednisone (Prednisone) 60 mg DAILY PO Last administered on 02/26/17 08:44; Admin Dose 60 MG; Start 02/26/17 at 09:00 Digoxin (Digoxin) 0.25 mg DAILY@13 PO ; Start 02/26/17 at 13:00 ANCA BURT NP Feb 26, 2017 11:57
--- NOTE | 2017-02-26 11:59 | PDOCDIS ---
Discharge Instructions CONDITION Patient Condition: Stable HOME CARE INSTRUCTIONS: Special Diet: CARB CONTROLLED FOLLOW UP/APPOINTMENTS Follow-up Plan 1. Follow-up with DR.David Villatoro today at 1:30 [facility] [place] [address] [phone] [id number] Office 2.Follow up with primary care physician in 1 week If you don't have one please let someone know, we can give you resources that may help you pick one. You may also call your insurance company to assign one to you. Review your medication list with your nurse before leaving and if you need new prescriptions please let your nurse know. I may have made changes to your home medications or given you new prescriptions, please let your primary doctor know as well. Stay compliant with your medications and report any side effects to your PCP or pharmacist. Return to the ER if you have any concerns and cannot reach your doctors or call your insurance company, they usually have a nurse that can help you. 3 Call 911 or go to the nearest emergency room if experiencing loss of consciousness, dizziness, chest pain, shortness of breath, vomiting/abdominal pain, speech difficulties, motor weakness or any unusual symptoms. ANCA BURT NP Feb 26, 2017 11:59
[2017-02-26] MEDS ORDERED: WARF3TAB PO (12:02)
[2017-02-26] MEDS: DIGOXIN 0.25 MG TAB PO SCH (12:55)
[2017-02-26] MEDS: WARFARIN 3 MG TAB PO SCH (17:42)
--- NOTE | 2017-02-26 18:35 | RADRPT ---
PROCEDURE: MR Brain and internal auditory canals with and without contrast. CLINICAL INDICATION: Vertigo. Right sided hearing loss. TECHNIQUE: Multiplanar multisequence MRI of the brain and internal auditory canals was performed be ore and after the intravenous administration of 10 cc of Magnevist. COMPARISON: There are no similar studies submitted for comparison. FINDINGS: The bilateral VII and VIII cranial nerve complexes are normal in size without abnormal enhancement. No cerebellopontine angle mass is identified. The bilateral cochlea, vestibule and semicircular canals are unremarkable. The visualized fifth cranial nerves and Meckel's caves are within normal limits. There is mild to moderate bilateral mastoid air cell effusions. The ventricles and sulci are within normal limits. There are prominent right greater than left perivascular spaces within the bilateral basal ganglia. There is a chronic infarction within the medial left cerebellum. There are small chronic right cere bellar infarctions. There is a small chronic left frontal infarction. There is no abnormal intracranial enhancement. There is no acute infarction. There is no intracranial hemorrhage or extra-axial fluid collection. There is no mass effect. There is no midline shift. The brainstem is within normal limits. The normal intracranial, intravascular flow voids are preserved. There is minimal bilateral ethmoid sinus mucosal thickening. There is moderate left maxillary sinus mucosal thickening. There is mild left maxillary sinus air fluid level suggesting acute sinusitis. The orbits are grossly unremarkable. There is no destructive osseous lesion. IMPRESSION: 1. No cerebellopontine angle mass is identified. The bilateral cranial nerve VII/VIII nerve comple xes are within normal limits. 2. No acute infarction or intracranial hemorrhage. 3. 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 4. Small chronic left frontal infarction. 5. Mild to moderate bilateral mastoid air cell effusions. 6. Mild left maxillary sinus air fluid level suggesting acute sinusitis. 7. No abnormal intracranial enhancement. Further findings as detailed above. RPTAT: PP .Kash Menjivar MD, Date Time Electronically viewed and signed by .Kash Menjivar MD, on 02/26/2017 18:34 .F/
[2017-02-26] MEDS: GABAPENTIN 100 MG CAP PO SCH (20:39)
[2017-02-26] MEDS: ATORVASTATIN 20 MG TAB PO SCH (20:40)
[2017-02-27] VITALS (12 sets, daily range): BP systolic 97–127; BP diastolic 57–66; PULSE 56–84; RESP 16–20
[2017-02-27] MEDS: ACCU-CHEK XX SCH (01:29)
[2017-02-27] MEDS: LEVOTHYROXINE 50 MCG TAB PO SCH (05:39)
[2017-02-27] MEDS: BENAZEPRIL 20 MG TAB PO SCH ×2 (09:00→21:00)
[2017-02-27] MEDS: metFORMIN 500 MG TAB PO SCH ×2 (09:19→17:24)
[2017-02-27] MEDS: MECLIZINE 12.5 MG TAB PO SCH ×3 (09:19→21:00)
[2017-02-27] MEDS: FAMOTIDINE 20 MG TAB PO SCH (09:19)
[2017-02-27] MEDS: FUROSEMIDE 40 MG TAB PO SCH ×2 (09:20→20:59)
[2017-02-27] MEDS: GABAPENTIN 100 MG CAP PO SCH ×3 (09:21→20:57)
[2017-02-27] MEDS: predniSONE 20 MG TAB PO SCH (09:23)
[2017-02-27] MEDS: LINAGLIPTIN 5 MG TABLET PO SCH (09:23)
[2017-02-27] MEDS: INSULIN ASPART [NOVOLOG] 3 ML PEN SC SCH ×7 (09:33→21:05)
[2017-02-27] MEDS: INSULIN GLARGINE [LANtus] 3 ML PEN SC SCH (09:34)
[2017-02-27] MEDS: DIGOXIN 0.25 MG TAB PO SCH (13:00)
--- NOTE | 2017-02-27 13:36 | PN ---
Date/Time of Note Date/Time of Note DATE: 02/27/17 TIME: 13:14 Assessment/Plan VTE Prophylaxis VTE Prophylaxis Intervention: ambulation, SCD's Lines/Catheters IV [facility] Saline Lock Assessment/Plan Chief Complaint/Hosp Course 1. Vertigo with Headache/ hearing loss, etiology unknown. Patient also has acute sinusitis. Dizziness improved. -Neurology eval appreciated. Spoke with ENT,'s office and recommended outpatient evaluation. -Continue Meclizine and tapering steroid -PT eval appreciated and recommended long-term facility versus HH PT 2.Acute sinusitis per MRI auditory canal -Start Augmentinx7 days 2. History of A-fib -Continue Coreg, digoxin. Coumadin 3 mg today. Patient takes 6 mg of Coumadin at home. We will monitor INR closely. 3. Hypertension. Stable -Continue antihypertensives 4. DMII -Insulin while in-house with adjustment as needed 5. History of CHF with systolic dysfunction -Continue home medication including diuretic 6. History of bioprosthetic mitral valve replacement -Continue Coumadin while monitoring INR 7.Anemia. HH stable. -Obtain iron panel and treat accordingly. 8. Obesity -Weight reduction advised. 9. Self-care impairment secondary to #1. Continue with physical appendectomy. Discharge planning to long-term facility for further comprehensive interdisciplinary therapy. 10.Diarrhea,rule out Cdiff PLAN:Overall with improvement in symptoms. Participating in PT activities but with impairment in peripheral vision field. As per , patient doesnot not inpatient eval and can be followed as outpatient. CM following for outpatient ENT authorization. DC planning to SNF for further PT treatment in progress. 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 Case discussed with . Problems: Subjective 24 Hr Interval Summary Free Text/Dictation Today patient with overall improvement. Had PT eval and walked with assist.however with peripheral vision disturbances.Having diarrhea. Exam/Review of Systems Vital Signs Vitals Vital Signs Date Time Temp Pulse Resp B/P Pulse Ox O2 Delivery O2 Flow Rate FiO2 02/27/17 12:18 58 02/27/17 12:09 98.2 18 127/60 90 02/24/17 01:00 Room Air 02/24/17 00:12 2.0 Intake and Output 02/26/17 02/26/17 02/27/17 14:59 22:59 06:59 Intake Total 400 ml 300 ml Output Total 400 ml 600 ml Balance 0 ml -300 ml Exam General: Obese female, not in any acute distress . HEENT: Normocephalic, Atraumatic, No laceration or hematoma; Eyes: PEERL, Conjunctiva clear, Anicteric sclera Neck: Supple without any lymphadenopathy, nontender, no JVD, no carotid bruits, trachea midline, no thyromegaly. Peripheral vision with some immurement. Cardiac: S1, S2 auscultated, regular rhythm and rate, no mumurs or gallop Pulmonary: Normal respiratory effort. Chest clear to auscultation bilaterally, no adventitious breath sounds GI: Abdomen normal to inspection. Soft, non tender, non- distended, no masses, no rebound tenderness or guarding. Bowel sounds active on all four quadrants Genitourinary: Deferred Extremities: Bilateral lower extremity edema, mild. No cyanosis. Pulses [2+] bilaterally. Full ROM on all four extremities. No focal weakness appreciated. Neurologic: Depressed affect. Alert,orientedx3. intact sensation. Skin: Clean,dry, and intact. No ecchymosis, no rashes, or lesions Results Result Diagram: 02/24/1771402/24/1715 Results 24 hrs Laboratory Tests Test 02/26/17 17:39 02/26/17 20:38 02/27/17 07:25 02/27/17 12:16 Bedside Glucose 197 166 159 146 Medications Medications Current Medications Benazepril HCl (Lotensin) 20 mg BID PO Last administered on 02/26/17 20:40; Admin Dose 20 MG; Start 02/24/17 at 09:00 Carvedilol (Coreg) 25 mg BID PO Last administered on 02/26/17 20:39; Admin Dose 25 MG; Start 02/24/17 at 09:00 Furosemide (Lasix) 40 mg BID PO Last administered on 02/27/17 09:20; Admin Dose 40 MG; Start 02/24/17 at 09:00 Famotidine (Pepcid) 20 mg DAILY PO Last administered on 02/27/17 09:19; Admin Dose 20 MG; Start 02/24/17 at 09:00 Atorvastatin Calcium (Lipitor) 20 mg HS PO Last administered on 02/26/17 20:40 ; Admin Dose 20 MG; Start 02/24/17 at 21:00 Diagnostic Test (Pha) (Accu-Chek) 1 ea 02 XX ; Start 02/24/17 at 02:00 Acetaminophen (Tylenol Tab) 650 mg Q6H PRN PO PAIN AND OR ELEVATED TEMP Last administered on 02/25/17 09:40; Admin Dose 650 MG; Start 02/24/17 at 02:00 Ondansetron HCl (Zofran Inj) 4 mg Q4H PRN IV NAUSEA AND/OR VOMITING Last administered on 02/26/17 08:50; Admin Dose 4 MG; Start 02/24/17 at 02:00 Miscellaneous Information 1 ea NOTE XX ; Start 02/24/17 at 03:00 Glucose (Glutose) 15 gm Q15M PRN PO DECREASED GLUCOSE; Start 02/24/17 at 03:00 Glucose (Glutose) 22.5 gm Q15M PRN PO DECREASED GLUCOSE; Start 02/24/17 at 03: 00 Dextrose (D50w Syringe) 25 ml Q15M PRN IV DECREASED GLUCOSE; Start 02/24/17 at 03:00 Dextrose (D50w Syringe) 50 ml Q15M PRN IV DECREASED GLUCOSE; Start 02/24/17 at 03:00 Glucagon (Glucagen) 1 mg Q15M PRN IM DECREASED GLUCOSE; Start 02/24/17 at 03:00 Glucose (Glutose) 15 gm Q15M PRN BUCCAL DECREASED GLUCOSE; Start 02/24/17 at 03 :00 Linagliptin (Tradjenta) 5 mg DAILY PO Last administered on 02/27/17 09:23; Admin Dose 5 MG; Start 02/24/17 at 16:00 Insulin Glargine (Lantus) 30 unit DAILY@08 SC Last administered on 02/27/17 09: 34; Admin Dose 30 UNIT; Start 02/25/17 at 08:00 Meclizine HCl (Antivert) 25 mg TID PO Last administered on 02/27/17 09:19; Admin Dose 25 MG; Start 02/26/17 at 09:00 Prednisone (Prednisone) 60 mg DAILY PO Last administered on 02/27/17 09:23; Admin Dose 60 MG; Start 02/26/17 at 09:00 Digoxin (Digoxin) 0.25 mg DAILY@13 PO Last administered on 02/26/17 12:55; Admin Dose 0.25 MG; Start 02/26/17 at 13:00 Warfarin Sodium (Coumadin) 3 mg DAILY@17 PO Last administered on 02/26/17 17: 42; Admin Dose 3 MG; Start 02/26/17 at 17:00 Gabapentin (Neurontin) 100 mg TID PO Last administered on 02/27/17 09:21; Admin Dose 100 MG; Start 02/26/17 at 21:00 ANCA BURT NP Feb 27, 2017 13:35
[2017-02-27 15:31] LABS: INR 1.76; PROTIME 20.7 Sec (12.2-14.2); PT RATIO 1.6
[2017-02-27] MEDS: AMOXICILLIN/CLAV 500 MG TAB PO SCH ×2 (15:40→21:05)
[2017-02-27] MEDS: WARFARIN 3 MG TAB PO SCH (17:24)
[2017-02-27] MEDS: ATORVASTATIN 20 MG TAB PO SCH (21:05)
[2017-02-28] VITALS (11 sets, daily range): BP systolic 110–138; BP diastolic 56–76; PULSE 55–77; RESP 18–22
[2017-02-28] MEDS: ACCU-CHEK XX SCH (01:15)
[2017-02-28] MEDS: LEVOTHYROXINE 50 MCG TAB PO SCH (06:54)
[2017-02-28 07:56] LABS: INR 1.84; PROTIME 21.4 Sec (12.2-14.2); PT RATIO 1.7
[2017-02-28] MEDS: FAMOTIDINE 20 MG TAB PO SCH (09:49)
[2017-02-28] MEDS: MECLIZINE 12.5 MG TAB PO SCH ×3 (09:49→21:10)
[2017-02-28] MEDS: metFORMIN 500 MG TAB PO SCH ×2 (09:49→18:28)
[2017-02-28] MEDS: predniSONE 20 MG TAB PO SCH (09:49)
[2017-02-28] MEDS: AMOXICILLIN/CLAV 500 MG TAB PO SCH ×2 (09:49→21:10)
[2017-02-28] MEDS: GABAPENTIN 100 MG CAP PO SCH ×3 (09:50→21:10)
[2017-02-28] MEDS: LINAGLIPTIN 5 MG TABLET PO SCH (09:50)
[2017-02-28] MEDS: BENAZEPRIL 20 MG TAB PO SCH ×2 (09:51→21:11)
[2017-02-28] MEDS: FUROSEMIDE 40 MG TAB PO SCH ×2 (09:51→21:11)
[2017-02-28] MEDS: INSULIN ASPART [NOVOLOG] 3 ML PEN SC SCH ×7 (09:58→21:15)
[2017-02-28] MEDS: INSULIN GLARGINE [LANtus] 3 ML PEN SC SCH (09:58)
[2017-02-28] MEDS: DIGOXIN 0.25 MG TAB PO SCH (13:22)
--- NOTE | 2017-02-28 13:50 | PN ---
Date/Time of Note Date/Time of Note DATE: 02/28/17 TIME: 13:46 Assessment/Plan VTE Prophylaxis VTE Prophylaxis Intervention: heparin Lines/Catheters IV Catheter Type (from Nrs): Saline Lock Assessment/Plan Problems: (1) Systolic CHF Status: Chronic Comment: Balanced and stabilized. Qualifiers: Congestive heart failure chronicity: chronic Qualified Code: I50.22 - Chronic systolic congestive heart failure (2) History of mitral valve replacement with bioprosthetic valve Status: Chronic Comment: Noted. Continue anticoagulant therapy (3) Diabetes mellitus type 2 in obese Status: Chronic Comment: Sugars are holding despite usage of the steroids. (4) Obesity (BMI 30-39.9) Status: Chronic Comment: Noted. Calorie restriction diet (5) Essential hypertension Status: Chronic Comment: On appropriate treatment (6) Hyperlipidemia associated with type 2 diabetes mellitus Status: Chronic Comment: On statin therapy. (7) Peripheral vertigo involving right ear Status: Acute Comment: Neurology consult is appreciated. Dr. Wong had attempted to reach ENT. The patient is receiving steroids and has improved with this. We will continue this and observe and try and get this patient up and around. Scopolamine patch is a comp concept Subjective 24 Hr Interval Summary Free Text/Dictation Patient reports that she is modestly improved versus yesterday. She has gotten up and use the bedpan. Limited ambulation. Physical therapy is on the case. Constitutional: no complaints ENT: no complaints Respiratory: no complaints Cardiovascular: no complaints Gastrointestinal: no complaints Neurologic: dizziness Exam/Review of Systems Vital Signs Vitals Vital Signs Date Time Temp Pulse Resp B/P Pulse Ox O2 Delivery O2 Flow Rate FiO2 02/28/17 12:13 55 02/28/17 12:00 98.3 18 115/56 95 Intake and Output 02/27/17 02/27/17 02/28/17 15:00 23:00 07:00 Intake Total 450 ml 480 ml Output Total 650 ml Balance -200 ml 480 ml Exam Declines Paulette and Ruth-Hallpike maneuvers Constitutional: alert, oriented Neck: non-tender, supple Respiratory: clear to auscultation, normal air movement Cardiovascular: murmurs/extra sounds (Left upper sternal border), regular rate and rhythm Gastrointestinal: nl liver, spleen, non-tender, soft Results Result Diagram: 02/24/1771402/24/1715 Results 24 hrs Laboratory Tests Test 02/27/17 14:24 02/27/17 17:23 02/27/17 20:54 02/28/17 01:11 Prothrombin Time 20.7 H Prothrombin Time Ratio 1.6 INR International Normalized Ratio 1.76 Bedside Glucose 205 210 192 Test 02/28/17 07:25 02/28/17 08:49 02/28/17 09:53 02/28/17 12:33 Prothrombin Time 21.4 H Prothrombin Time Ratio 1.7 INR International Normalized Ratio 1.84 Bedside Glucose 162 166 163 Medications Medications Current Medications Benazepril HCl (Lotensin) 20 mg BID PO Last administered on 02/28/17 09:51; Admin Dose 20 MG; Start 02/24/17 at 09:00 Carvedilol (Coreg) 25 mg BID PO Last administered on 02/28/17 09:51; Admin Dose 25 MG; Start 02/24/17 at 09:00 Furosemide (Lasix) 40 mg BID PO Last administered on 02/28/17 09:51; Admin Dose 40 MG; Start 02/24/17 at 09:00 Famotidine (Pepcid) 20 mg DAILY PO Last administered on 02/28/17 09:49; Admin Dose 20 MG; Start 02/24/17 at 09:00 Atorvastatin Calcium (Lipitor) 20 mg HS PO Last administered on 02/27/17 21:05 ; Admin Dose 20 MG; Start 02/24/17 at 21:00 Diagnostic Test (Pha) (Accu-Chek) 1 ea 02 XX Last administered on 02/28/17 01: 15; Admin Dose 1 EA; Start 02/24/17 at 02:00 Acetaminophen (Tylenol Tab) 650 mg Q6H PRN PO PAIN AND OR ELEVATED TEMP Last administered on 02/25/17 09:40; Admin Dose 650 MG; Start 02/24/17 at 02:00 Ondansetron HCl (Zofran Inj) 4 mg Q4H PRN IV NAUSEA AND/OR VOMITING Last administered on 02/26/17 08:50; Admin Dose 4 MG; Start 02/24/17 at 02:00 Miscellaneous Information 1 ea NOTE XX ; Start 02/24/17 at 03:00 Glucose (Glutose) 15 gm Q15M PRN PO DECREASED GLUCOSE; Start 02/24/17 at 03:00 Glucose (Glutose) 22.5 gm Q15M PRN PO DECREASED GLUCOSE; Start 02/24/17 at 03: 00 Dextrose (D50w Syringe) 25 ml Q15M PRN IV DECREASED GLUCOSE; Start 02/24/17 at 03:00 Dextrose (D50w Syringe) 50 ml Q15M PRN IV DECREASED GLUCOSE; Start 02/24/17 at 03:00 Glucagon (Glucagen) 1 mg Q15M PRN IM DECREASED GLUCOSE; Start 02/24/17 at 03:00 Glucose (Glutose) 15 gm Q15M PRN BUCCAL DECREASED GLUCOSE; Start 02/24/17 at 03 :00 Linagliptin (Tradjenta) 5 mg DAILY PO Last administered on 02/28/17 09:50; Admin Dose 5 MG; Start 02/24/17 at 16:00 Insulin Glargine (Lantus) 30 unit DAILY@08 SC Last administered on 02/28/17 09: 58; Admin Dose 30 UNIT; Start 02/25/17 at 08:00 Meclizine HCl (Antivert) 25 mg TID PO Last administered on 02/28/17 13:22; Admin Dose 25 MG; Start 02/26/17 at 09:00 Prednisone (Prednisone) 60 mg DAILY PO Last administered on 02/28/17 09:49; Admin Dose 60 MG; Start 02/26/17 at 09:00 Digoxin (Digoxin) 0.25 mg DAILY@13 PO Last administered on 02/28/17 13:22; Admin Dose 0.25 MG; Start 02/26/17 at 13:00 Warfarin Sodium (Coumadin) 3 mg DAILY@17 PO Last administered on 02/27/17 17:24 ; Admin Dose 3 MG; Start 02/26/17 at 17:00 Gabapentin (Neurontin) 100 mg TID PO Last administered on 02/28/17 13:22; Admin Dose 100 MG; Start 02/26/17 at 21:00 Amoxicillin/ Clavulanate Potassium (Augmentin) 500 mg BID PO Last administered on 02/28/17 09:49; Admin Dose 500 MG; Start 02/27/17 at 14:00; Stop 03/06/17 at 13 :59 MARIAN BRITTON MD Feb 28, 2017 13:50
[2017-02-28] MEDS ORDERED: SCOPOLAMINE 1.5 MG PATCH TRANSDERM SCH (14:00)
[2017-02-28] MEDS: WARFARIN 3 MG TAB PO SCH (16:41)
[2017-02-28] MEDS: ACETAMINOPHEN 325 MG TAB PO PRN (21:10)
[2017-02-28] MEDS: ATORVASTATIN 20 MG TAB PO SCH (21:12)
[2017-03-01] VITALS (13 sets, daily range): BP systolic 98–129; BP diastolic 51–71; PULSE 49–86; RESP 18–20
[2017-03-01] MEDS: ACCU-CHEK XX SCH (02:00)
[2017-03-01] MEDS: LEVOTHYROXINE 50 MCG TAB PO SCH (06:53)
[2017-03-01 07:57] LABS: INR 1.94; PROTIME 22.3 Sec (12.2-14.2); PT RATIO 1.7
[2017-03-01] MEDS: INSULIN ASPART [NOVOLOG] 3 ML PEN SC SCH ×7 (08:00→20:57)
[2017-03-01] MEDS: MECLIZINE 12.5 MG TAB PO SCH ×3 (08:43→20:52)
[2017-03-01] MEDS: GABAPENTIN 100 MG CAP PO SCH ×3 (08:43→20:51)
[2017-03-01] MEDS: BENAZEPRIL 20 MG TAB PO SCH ×2 (08:44→20:52)
[2017-03-01] MEDS: FAMOTIDINE 20 MG TAB PO SCH (08:44)
[2017-03-01] MEDS: LINAGLIPTIN 5 MG TABLET PO SCH (08:44)
[2017-03-01] MEDS: predniSONE 20 MG TAB PO SCH (08:44)
[2017-03-01] MEDS: AMOXICILLIN/CLAV 500 MG TAB PO SCH ×2 (08:44→20:52)
[2017-03-01] MEDS: FUROSEMIDE 40 MG TAB PO SCH ×2 (08:44→20:51)
[2017-03-01] MEDS: metFORMIN 500 MG TAB PO SCH ×2 (08:44→17:30)
[2017-03-01] MEDS: INSULIN GLARGINE [LANtus] 3 ML PEN SC SCH (08:46)
[2017-03-01] MEDS: ACETAMINOPHEN 325 MG TAB PO PRN ×2 (08:59→20:52)
[2017-03-01] MEDS: DIGOXIN 0.25 MG TAB PO SCH (12:19)
--- NOTE | 2017-03-01 14:41 | PN ---
Date/Time of Note Date/Time of Note DATE: 03/01/17 TIME: 14:35 Assessment/Plan VTE Prophylaxis VTE Prophylaxis Intervention: SCD's Lines/Catheters IV [facility] ([facility] Peripheral IV Assessment/Plan Problems: (1) History of mitral valve replacement with bioprosthetic valve Status: Chronic Comment: Noted. Fully operational (2) Hyperlipidemia associated with type 2 diabetes mellitus Status: Chronic Comment: Noted. Remains stable on medicine (3) Systolic CHF Status: Chronic Comment: Stable on medication management. I do not believe the medicines are causing the dizziness. Qualifiers: Congestive heart failure chronicity: chronic Qualified Code: I50.22 - Chronic systolic congestive heart failure (4) Diabetes mellitus type 2 in obese Status: Chronic Comment: Adequate control in spite of the usage of the steroids (5) Essential hypertension Status: Chronic Comment: She has been stable on this issue (6) Peripheral vertigo involving right ear Status: Acute Comment: Has had minimal improvement. I am attempting to treat her with a combination of meclizine scopolamine patch and steroids. Attempting to reach ENT consult. Subjective 24 Hr Interval Summary Free Text/Dictation She reports she is slightly better. She has not been up and around at all. Constitutional: no complaints ENT: other (Continues to complain of vertigo) Respiratory: no complaints Cardiovascular: no complaints Gastrointestinal: no complaints Exam/Review of Systems Vital Signs Vitals Vital Signs Date Time Temp Pulse Resp B/P Pulse Ox O2 Delivery O2 Flow Rate FiO2 03/01/17 12:38 54 03/01/17 11:30 98.6 19 116/56 92 Intake and Output 02/28/17 02/28/17 03/01/17 15:00 23:00 07:00 Intake Total 750 ml 480 ml Balance 750 ml 480 ml Exam Constitutional: alert, oriented Respiratory: clear to auscultation, normal air movement Cardiovascular: nl pulses, regular rate and rhythm Gastrointestinal: nl liver, spleen, non-tender, soft Results Results 24 hrs Laboratory Tests Test 02/28/17 18:29 02/28/17 21:03 03/01/17 02:01 03/01/17 06:45 Bedside Glucose 269 H 284 H 115 Prothrombin Time 22.3 H Prothrombin Time Ratio 1.7 INR International Normalized Ratio 1.94 Test 03/01/17 07:53 03/01/17 11:58 Bedside Glucose 110 144 Medications Medications Current Medications Benazepril HCl (Lotensin) 20 mg BID PO Last administered on 03/01/17 08:44; Admin Dose 20 MG; Start 02/24/17 at 09:00 Carvedilol (Coreg) 25 mg BID PO Last administered on 02/28/17 21:11; Admin Dose 25 MG; Start 02/24/17 at 09:00 Furosemide (Lasix) 40 mg BID PO Last administered on 03/01/17 08:44; Admin Dose 40 MG; Start 02/24/17 at 09:00 Famotidine (Pepcid) 20 mg DAILY PO Last administered on 03/01/17 08:44; Admin Dose 20 MG; Start 02/24/17 at 09:00 Atorvastatin Calcium (Lipitor) 20 mg HS PO Last administered on 02/28/17 21:12 ; Admin Dose 20 MG; Start 02/24/17 at 21:00 Diagnostic Test (Pha) (Accu-Chek) 1 ea 02 XX Last administered on 03/01/17 02: 00; Admin Dose 1 EA; Start 02/24/17 at 02:00 Acetaminophen (Tylenol Tab) 650 mg Q6H PRN PO PAIN AND OR ELEVATED TEMP Last administered on 03/01/17 08:59; Admin Dose 650 MG; Start 02/24/17 at 02:00 Ondansetron HCl (Zofran Inj) 4 mg Q4H PRN IV NAUSEA AND/OR VOMITING Last administered on 02/26/17 08:50; Admin Dose 4 MG; Start 02/24/17 at 02:00 Miscellaneous Information 1 ea NOTE XX ; Start 02/24/17 at 03:00 Glucose (Glutose) 15 gm Q15M PRN PO DECREASED GLUCOSE; Start 02/24/17 at 03:00 Glucose (Glutose) 22.5 gm Q15M PRN PO DECREASED GLUCOSE; Start 02/24/17 at 03: 00 Dextrose (D50w Syringe) 25 ml Q15M PRN IV DECREASED GLUCOSE; Start 02/24/17 at 03:00 Dextrose (D50w Syringe) 50 ml Q15M PRN IV DECREASED GLUCOSE; Start 02/24/17 at 03:00 Glucagon (Glucagen) 1 mg Q15M PRN IM DECREASED GLUCOSE; Start 02/24/17 at 03:00 Glucose (Glutose) 15 gm Q15M PRN BUCCAL DECREASED GLUCOSE; Start 02/24/17 at 03 :00 Linagliptin (Tradjenta) 5 mg DAILY PO Last administered on 03/01/17 08:44; Admin Dose 5 MG; Start 02/24/17 at 16:00 Insulin Glargine (Lantus) 30 unit DAILY@08 SC Last administered on 03/01/17 08: 46; Admin Dose 30 UNIT; Start 02/25/17 at 08:00 Meclizine HCl (Antivert) 25 mg TID PO Last administered on 03/01/17 12:18; Admin Dose 25 MG; Start 02/26/17 at 09:00 Prednisone (Prednisone) 60 mg DAILY PO Last administered on 03/01/17 08:44; Admin Dose 60 MG; Start 02/26/17 at 09:00 Digoxin (Digoxin) 0.25 mg DAILY@13 PO Last administered on 02/28/17 13:22; Admin Dose 0.25 MG; Start 02/26/17 at 13:00 Warfarin Sodium (Coumadin) 3 mg DAILY@17 PO Last administered on 02/28/17 16:41 ; Admin Dose 3 MG; Start 02/26/17 at 17:00 Gabapentin (Neurontin) 100 mg TID PO Last administered on 03/01/17 12:18; Admin Dose 100 MG; Start 02/26/17 at 21:00 Amoxicillin/ Clavulanate Potassium (Augmentin) 500 mg BID PO Last administered on 03/01/17 08:44; Admin Dose 500 MG; Start 02/27/17 at 14:00; Stop 03/06/17 at 13 :59 MARIAN BRITTON MD Mar 01, 2017 14:41
[2017-03-01] MEDS: WARFARIN 3 MG TAB PO SCH (17:30)
[2017-03-01] MEDS: ATORVASTATIN 20 MG TAB PO SCH (20:52)
--- NOTE | 2017-03-01 21:52 | CONS ---
Date/Time of Note Date/Time of Note DATE: 03/01/17 TIME: 21:33 Assessment/Plan Assessment/Plan Chief Complaint/Hosp Course Acute right labyrinthitis Problems: Additional Assessment/Plan Typically, the intense vertigo associated with labyrinthitis improves after 2-3 days. This period is typically followed by 1-2 months of improving disequilibrium. Unfortunately for the patient, she continues to have debilitating vertigo. Most cases of labyrinthitis are thought to be due to viral inflammation. However, for Mrs. Novak, it is possible that her labyrinthitis is caused by obstruction of the vasculature to the inner ear ( which would be too small to detect on imaging) given her history of atrial fibrillation. 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 Recommendations: 1. Prednisone 60mg qday x 7 days, followed by a one week taper (for a total of 14 days of prednisone) 2. Benzodiazepine treatment for management of vertiginous symptoms (i.e. valium) 3. The patient's symptoms should start improve over the next week at which point she should be safe for discharge 4. She should have ENT f/u in 6 weeks for audiogram and assessment of vestibular function Please call with any questions or concerns. Thank you for allowing me to participate in this patient's care. Consultation Date/Type/Reason Admit Date/Time Feb 23, 2017 at 21:58 Type of Consultation: ENT Reason for Consultation Vertigo Referring Provider: MARIAN BRITTON MD Hx of Present Illness The patient is a 52 year old female with a history of DM and Afib who 6 days ago experienced acute vertigo, right hearing loss and right tinnitus. She went to the ED at that time. 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 Her CT did demonstrate left maxillary sinusitis and mild bilateral mastoid opacification. She has had minimal improvement since admission, despite being treated with antibiotics and prednisone. She denies a prior history of similar vertigo. Denies prior hx of asymmetric hearing loss. Constitutional: no complaints ENT: other (Continues to complain of vertigo) Respiratory: no complaints Cardiovascular: no complaints Gastrointestinal: no complaints Neurologic: dizziness Social History Smoking Status: Never smoker Exam/Review of Systems Vital Signs Vitals Vital Signs Date Time Temp Pulse Resp B/P Pulse Ox O2 Delivery O2 Flow Rate FiO2 03/01/17 20:14 86 03/01/17 20:00 98.2 20 128/60 96 Intake and Output 02/28/17 02/28/17 03/01/17 15:00 23:00 07:00 Intake Total 750 ml 480 ml Balance 750 ml 480 ml Exam ENMT: mucosa pink and moist, nl external ears & nose, nl lips & teeth, nl nasal mucosa & septum, other (Head thrust testing negative. Mai lateralizes to left side @ 256 hz), tympanic membranes Results Results 24 hrs Laboratory Tests Test 03/01/17 02:01 03/01/17 06:45 03/01/17 07:53 03/01/17 11:58 Bedside Glucose 115 110 144 Prothrombin Time 22.3 H Prothrombin Time Ratio 1.7 INR International Normalized Ratio 1.94 Test 03/01/17 17:18 03/01/17 20:50 Bedside Glucose 202 216 Medications Medications Current Medications Benazepril HCl (Lotensin) 20 mg BID PO Last administered on 03/01/17 20:52; Admin Dose 20 MG; Start 02/24/17 at 09:00 Carvedilol (Coreg) 25 mg BID PO Last administered on 03/01/17 20:52; Admin Dose 25 MG; Start 02/24/17 at 09:00 Furosemide (Lasix) 40 mg BID PO Last administered on 03/01/17 20:51; Admin Dose 40 MG; Start 02/24/17 at 09:00 Famotidine (Pepcid) 20 mg DAILY PO Last administered on 03/01/17 08:44; Admin Dose 20 MG; Start 02/24/17 at 09:00 Atorvastatin Calcium (Lipitor) 20 mg HS PO Last administered on 03/01/17 20:52 ; Admin Dose 20 MG; Start 02/24/17 at 21:00 Diagnostic Test (Pha) (Accu-Chek) 1 ea 02 XX Last administered on 03/01/17 02: 00; Admin Dose 1 EA; Start 02/24/17 at 02:00 Acetaminophen (Tylenol Tab) 650 mg Q6H PRN PO PAIN AND OR ELEVATED TEMP Last administered on 03/01/17 20:52; Admin Dose 650 MG; Start 02/24/17 at 02:00 Ondansetron HCl (Zofran Inj) 4 mg Q4H PRN IV NAUSEA AND/OR VOMITING Last administered on 02/26/17 08:50; Admin Dose 4 MG; Start 02/24/17 at 02:00 Miscellaneous Information 1 ea NOTE XX ; Start 02/24/17 at 03:00 Glucose (Glutose) 15 gm Q15M PRN PO DECREASED GLUCOSE; Start 02/24/17 at 03:00 Glucose (Glutose) 22.5 gm Q15M PRN PO DECREASED GLUCOSE; Start 02/24/17 at 03: 00 Dextrose (D50w Syringe) 25 ml Q15M PRN IV DECREASED GLUCOSE; Start 02/24/17 at 03:00 Dextrose (D50w Syringe) 50 ml Q15M PRN IV DECREASED GLUCOSE; Start 02/24/17 at 03:00 Glucagon (Glucagen) 1 mg Q15M PRN IM DECREASED GLUCOSE; Start 02/24/17 at 03:00 Glucose (Glutose) 15 gm Q15M PRN BUCCAL DECREASED GLUCOSE; Start 02/24/17 at 03 :00 Linagliptin (Tradjenta) 5 mg DAILY PO Last administered on 03/01/17 08:44; Admin Dose 5 MG; Start 02/24/17 at 16:00 Insulin Glargine (Lantus) 30 unit DAILY@08 SC Last administered on 03/01/17 08: 46; Admin Dose 30 UNIT; Start 02/25/17 at 08:00 Meclizine HCl (Antivert) 25 mg TID PO Last administered on 03/01/17 20:52; Admin Dose 25 MG; Start 02/26/17 at 09:00 Prednisone (Prednisone) 60 mg DAILY PO Last administered on 03/01/17 08:44; Admin Dose 60 MG; Start 02/26/17 at 09:00 Digoxin (Digoxin) 0.25 mg DAILY@13 PO Last administered on 02/28/17 13:22; Admin Dose 0.25 MG; Start 02/26/17 at 13:00 Warfarin Sodium (Coumadin) 3 mg DAILY@17 PO Last administered on 03/01/17 17:30 ; Admin Dose 3 MG; Start 02/26/17 at 17:00 Gabapentin (Neurontin) 100 mg TID PO Last administered on 9/3/17at 20:51; Admin Dose 100 MG; Start 02/26/17 at 21:00 Amoxicillin/ Clavulanate Potassium (Augmentin) 500 mg BID PO Last administered on 03/01/17t 20:52; Admin Dose 500 MG; Start 02/27/17 at 14:00; Stop 03/06/17 at 13 :59 RAFFAELE WALLACE MD Mar 01, 2017 21:52
[2017-03-02] VITALS (12 sets, daily range): BP systolic 121–135; BP diastolic 59–66; PULSE 48–60; RESP 18–21
[2017-03-02] MEDS: ACCU-CHEK XX SCH (02:18)
[2017-03-02] MEDS: INSULIN ASPART [NOVOLOG] 3 ML PEN SC SCH ×7 (08:00→21:21)
[2017-03-02 08:21] LABS: INR 1.91; PROTIME 22.1 Sec (12.2-14.2); PT RATIO 1.7
[2017-03-02] MEDS: MECLIZINE 12.5 MG TAB PO SCH ×3 (08:54→21:32)
[2017-03-02] MEDS: AMOXICILLIN/CLAV 500 MG TAB PO SCH ×2 (08:54→21:17)
[2017-03-02] MEDS: predniSONE 20 MG TAB PO SCH (08:54)
[2017-03-02] MEDS: GABAPENTIN 100 MG CAP PO SCH ×3 (08:54→21:18)
[2017-03-02] MEDS: FAMOTIDINE 20 MG TAB PO SCH (08:55)
[2017-03-02] MEDS: metFORMIN 500 MG TAB PO SCH ×2 (08:55→17:47)
[2017-03-02] MEDS: FUROSEMIDE 40 MG TAB PO SCH ×2 (08:55→21:19)
[2017-03-02] MEDS: LINAGLIPTIN 5 MG TABLET PO SCH (08:55)
[2017-03-02] MEDS: BENAZEPRIL 20 MG TAB PO SCH ×2 (08:55→21:18)
[2017-03-02] MEDS: INSULIN GLARGINE [LANtus] 3 ML PEN SC SCH (08:58)
[2017-03-02] MEDS: LEVOTHYROXINE 50 MCG TAB PO SCH (09:03)
[2017-03-02] MEDS: DIGOXIN 0.25 MG TAB PO SCH (12:28)
[2017-03-02] MEDS: DIGOXIN 0.125 MG TAB PO SCH (13:00)
--- NOTE | 2017-03-02 13:07 | PN ---
Date/Time of Note Date/Time of Note DATE: 03/02/17 TIME: 12:58 Assessment/Plan VTE Prophylaxis VTE Prophylaxis Intervention: other (coumadin) Lines/Catheters IV Catheter Type (from Nrsg): Peripheral IV Assessment/Plan Assessment/Plan 1. Vertigo, on prednisone per ENT 2. Atrial fibrillation, chronic with VR down to 37, deccrease coreg and dig, on coumadin 3. s/p bioprosthetic mitral valve replacement, stablle 5. HTN, contrled 6. DM, stable 7. History of CHF Subjective 24 Hr Interval Summary Free Text/Dictation still with vertigo Exam/Review of Systems Vital Signs Vitals Vital Signs Date Time Temp Pulse Resp B/P Pulse Ox O2 Delivery O2 Flow Rate FiO2 03/02/17 12:09 55 03/02/17 11:36 98.6 18 125/61 94 Intake and Output 03/01/17 03/01/17 03/02/17 15:00 23:00 07:00 Intake Total 850 ml 480 ml Output Total 4 ml Balance 850 ml 476 ml Exam Constitutional: alert, oriented, well developed Psych: nl mood/affect, no complaints Head: atraumatic, normocephalic Eyes: EOMI, PERRL, nl conjunctiva, nl lids ENMT: nl external ears & nose, nl lips & teeth, nl nasal mucosa & septum Neck: non-tender, supple Respiratory: clear to auscultation, normal air movement, No congested cough, No crackles/rales, No diminished breath sounds, No intercostal retraction, No labored breathing, No other, No respirations, No tactile fremitus, No wheezing Cardiovascular: irregular rhythm Gastrointestinal: nl liver, spleen, non-tender, soft, No ascites, No bowel sounds, No distended, No firm, No hepatomegaly, No mass , No other, No rebound or guarding, No splenomegaly, No surgical scars, No tender Musculoskeletal: nl extremities to inspection Extremities: normal pulses, No calf tenderness, No clubbing, No cyanosis, No edema, No other, No palpable cord, No pitting pedal edema, No tenderness Neurological: TABLE TENDER SLUDGE II-XII intact, nl mental status, nl speech, nl strength Skin: nl turgor Lymph: nl lymph nodes Results Results 24 hrs Laboratory Tests Test 03/01/17 17:18 03/01/17 20:50 03/02/17 01:49 03/02/17 07:45 Bedside Glucose 202 216 126 Prothrombin Time 22.1 H Prothrombin Time Ratio 1.7 INR International Normalized Ratio 1.91 Test 03/02/17 07:52 03/02/17 11:56 Bedside Glucose 117 232 H Medications Medications Current Medications Benazepril HCl (Lotensin) 20 mg BID PO Last administered on 03/02/17 08:55; Admin Dose 20 MG; Start 02/24/17 at 09:00 Carvedilol (Coreg) 25 mg BID PO Last administered on 03/01/17 20:52; Admin Dose 25 MG; Start 02/24/17 at 09:00 Furosemide (Lasix) 40 mg BID PO Last administered on 03/02/17 08:55; Admin Dose 40 MG; Start 02/24/17 at 09:00 Famotidine (Pepcid) 20 mg DAILY PO Last administered on 03/02/17 08:55; Admin Dose 20 MG; Start 02/24/17 at 09:00 Atorvastatin Calcium (Lipitor) 20 mg HS PO Last administered on 03/01/17 20:52 ; Admin Dose 20 MG; Start 02/24/17 at 21:00 Diagnostic Test (Pha) (Accu-Chek) 1 ea 02 XX Last administered on 03/02/17 02: 18; Admin Dose 1 EA; Start 02/24/17 at 02:00 Acetaminophen (Tylenol Tab) 650 mg Q6H PRN PO PAIN AND OR ELEVATED TEMP Last administered on 03/01/17 20:52; Admin Dose 650 MG; Start 02/24/17 at 02:00 Ondansetron HCl (Zofran Inj) 4 mg Q4H PRN IV NAUSEA AND/OR VOMITING Last administered on 02/26/17 08:50; Admin Dose 4 MG; Start 02/24/17 at 02:00 Miscellaneous Information 1 ea NOTE XX ; Start 02/24/17 at 03:00 Glucose (Glutose) 15 gm Q15M PRN PO DECREASED GLUCOSE; Start 02/24/17 at 03:00 Glucose (Glutose) 22.5 gm Q15M PRN PO DECREASED GLUCOSE; Start 02/24/17 at 03: 00 Dextrose (D50w Syringe) 25 ml Q15M PRN IV DECREASED GLUCOSE; Start 02/24/17 at 03:00 Dextrose (D50w Syringe) 50 ml Q15M PRN IV DECREASED GLUCOSE; Start 02/24/17 at 03:00 Glucagon (Glucagen) 1 mg Q15M PRN IM DECREASED GLUCOSE; Start 02/24/17 at 03:00 Glucose (Glutose) 15 gm Q15M PRN BUCCAL DECREASED GLUCOSE; Start 02/24/17 at 03 :00 Linagliptin (Tradjenta) 5 mg DAILY PO Last administered on 03/02/17 08:55; Admin Dose 5 MG; Start 02/24/17 at 16:00 Insulin Glargine (Lantus) 30 unit DAILY@08 SC Last administered on 03/02/17 08: 58; Admin Dose 30 UNIT; Start 02/25/17 at 08:00 Meclizine HCl (Antivert) 25 mg TID PO Last administered on 03/02/17 12:28; Admin Dose 25 MG; Start 02/26/17 at 09:00 Prednisone (Prednisone) 60 mg DAILY PO Last administered on 03/02/17 08:54; Admin Dose 60 MG; Start 02/26/17 at 09:00 Digoxin (Digoxin) 0.25 mg DAILY@13 PO Last administered on 02/28/17 13:22; Admin Dose 0.25 MG; Start 02/26/17 at 13:00 Warfarin Sodium (Coumadin) 3 mg DAILY@17 PO Last administered on 03/01/17 17:30 ; Admin Dose 3 MG; Start 02/26/17 at 17:00 Gabapentin (Neurontin) 100 mg TID PO Last administered on 03/02/17 12:28; Admin Dose 100 MG; Start 02/26/17 at 21:00 Amoxicillin/ Clavulanate Potassium (Augmentin) 500 mg BID PO Last administered on 03/02/17 08:54; Admin Dose 500 MG; Start 02/27/17 at 14:00; Stop 03/06/17 at 13 :59 KENTRELL JOYA MD Mar 02, 2017 13:07
[2017-03-02] MEDS: WARFARIN 3 MG TAB PO SCH (17:46)
[2017-03-02] MEDS: ATORVASTATIN 20 MG TAB PO SCH (21:17)
[2017-03-03] VITALS (14 sets, daily range): BP systolic 123–136; BP diastolic 58–61; PULSE 40–74; RESP 17–20
[2017-03-03] MEDS: ACCU-CHEK XX SCH (02:00)
[2017-03-03 07:56] LABS: INR 1.74; PROTIME 20.5 Sec (12.2-14.2); PT RATIO 1.6
[2017-03-03] MEDS: INSULIN ASPART [NOVOLOG] 3 ML PEN SC SCH ×7 (08:00→21:00)
[2017-03-03] MEDS: LINAGLIPTIN 5 MG TABLET PO SCH (08:20)
[2017-03-03] MEDS: GABAPENTIN 100 MG CAP PO SCH ×3 (08:20→21:09)
[2017-03-03] MEDS: MECLIZINE 12.5 MG TAB PO SCH ×3 (08:21→22:26)
[2017-03-03] MEDS: BENAZEPRIL 20 MG TAB PO SCH ×2 (08:21→21:10)
[2017-03-03] MEDS: FUROSEMIDE 40 MG TAB PO SCH ×2 (08:22→21:09)
[2017-03-03] MEDS: predniSONE 20 MG TAB PO SCH (08:22)
[2017-03-03] MEDS: metFORMIN 500 MG TAB PO SCH ×2 (08:23→17:27)
[2017-03-03] MEDS: FAMOTIDINE 20 MG TAB PO SCH (08:23)
[2017-03-03] MEDS: AMOXICILLIN/CLAV 500 MG TAB PO SCH ×2 (08:23→21:09)
[2017-03-03] MEDS: LEVOTHYROXINE 50 MCG TAB PO SCH (08:23)
[2017-03-03] MEDS: INSULIN GLARGINE [LANtus] 3 ML PEN SC SCH (08:24)
[2017-03-03] MEDS: DIGOXIN 0.125 MG TAB PO SCH (12:38)
--- NOTE | 2017-03-03 14:22 | CONS ---
DATE OF ADMISSION: 02/25/2017 DATE OF CONSULTATION: 02/27/2017 REQUESTING PHYSICIAN: and Dr. Wagner HISTORY OF PRESENT ILLNESS: I am following for . Patient is 53 years old with a past medical history of hypertension, diabetes, atrial fibrillation, mitral valve replacement, congestive heart failure. Ejection fraction is around 45 percent. Patient has decreased hearing in her ear on the right side. PHYSICAL EXAMINATION: GENERAL: The patient is alert, awake, and oriented, following commands. HEART: Regular rate and rhythm with compressed sounds. NEUROLOGIC: Cranial nerve 2 with pupils equal on both sides. Cranial nerves 3, 4, and 6: Intact for dorsal maneuver. Cranial nerves 5 and 7: Intact corneal reflexes. Cranial nerve 8: Decreased hearing on the right side. Cranial nerves 9 and 10: nervous system. Motor examination: Decreased for the hand branch manager 4-plus over 5. Sensory examination: Decreased for glove and stocking for light touch and temperature. Coordination: [id number] is intact. ASSESSMENT AND PLAN: This is a patient 53 years old with: 1. Underlying decreased hearing on the right side. 2. Suspected underlying small lacunar infarction. Patient has risk factors in the form of hypertension, diabetes, atrial fibrillation. Patient already on Coumadin for stroke prophylaxis and continue that and keep the between 2 and 3. 3. Gait difficulty, probably secondary to the hearing problem. Will follow up the patient with fall precautions for now. Again, thank you , for asking me to see the patient for you. Dictated By: Angel Chao MD /trey/[email or web address] /Document#: [id number]
--- NOTE | 2017-03-03 14:37 | PN ---
Date/Time of Note Date/Time of Note DATE: 03/03/17 TIME: 14:36 Assessment/Plan VTE Prophylaxis VTE Prophylaxis Intervention: other (coumadin) Lines/Catheters IV Catheter Type (from Nrs): Peripheral IV Assessment/Plan Chief Complaint/Hosp Course 1. Vertigo. Improved -Neurology eval appreciated. Spoke with ENT,'s office and recommended outpatient evaluation. -Continue Meclizine and tapering steroid( we will decrease prednisone to 40mgx3 days, then 20mgx3 days as directed by Neuro) -PT eval appreciated and recommended retirement facility versus HH PT 2.Acute sinusitis per MRI auditory canal. Stable -Start Augmentinx7 days 2. History of A-fib -Continue Coreg, digoxin and Coumadin 3. Hypertension. Stable -Continue antihypertensives 4. DMII-needs more optimization. Patient also receiving steroids. -Increase pre-meal insulin to 10 units while patient is on prednisone. Continue with Accu-Cheks, ISS and Lantus. 5. History of CHF with systolic dysfunction -Continue home medication including diuretic 6. History of bioprosthetic mitral valve replacement-with subtherapeutic INR -Increase Coumadin back to outpatient dose (6mg) 7.Anemia. HH stable. -Obtain iron panel and treat accordingly. 8. Obesity -Weight reduction advised. 9. Self-care impairment secondary to #1. Continue with PT. Discharge planning to retirement facility for further comprehensive interdisciplinary therapy. 10. Hearing loss, right ear. Needs ENT outpatient evaluation PLAN:Overall with improvement in symptoms. She is now able to ambulate within the room without any assist. Start discharge planning home with home health physical therapy. Patient also needs ENT and ophthalmology evaluation as outpatient. Case management to follow. Case discussed with DR. Nuñez Problems: Subjective 24 Hr Interval Summary Free Text/Dictation Overall, patient feels improvement. She is able to walk in the room without assist. Exam/Review of Systems Vital Signs Vitals Vital Signs Date Time Temp Pulse Resp B/P Pulse Ox O2 Delivery O2 Flow Rate FiO2 03/03/17 11:38 98.1 65 18 131/61 94 Intake and Output 03/02/17 03/02/17 03/03/17 15:00 23:00 07:00 Intake Total 200 ml Balance 200 ml Exam General: Obese female, not in any acute distress . HEENT: Normocephalic, Atraumatic, No laceration or hematoma; Eyes: PEERL, Conjunctiva clear, Anicteric sclera Neck: Supple without any lymphadenopathy, nontender, no JVD, no carotid bruits, trachea midline, no thyromegaly. Peripheral vision with some immurement. Cardiac: S1, S2 auscultated, regular rhythm and rate, no mumurs or gallop Pulmonary: Normal respiratory effort. Chest clear to auscultation bilaterally, no adventitious breath sounds GI: Abdomen normal to inspection. Soft, non tender, non- distended, no masses, no rebound tenderness or guarding. Bowel sounds active on all four quadrants Genitourinary: Deferred Extremities: No cyanosis or edema. Pulses [2+] bilaterally. Full ROM on all four extremities. No focal weakness appreciated. Neurologic: Alert,orientedx3. intact sensation. Skin: Clean,dry, and intact. No ecchymosis, no rashes, or lesions Results Results 24 hrs Laboratory Tests Test 03/02/17 17:22 03/02/17 21:14 03/03/17 02:19 03/03/17 06:49 Bedside Glucose 270 H 219 145 Prothrombin Time 20.5 H Prothrombin Time Ratio 1.6 INR International Normalized Ratio 1.74 Test 03/03/17 07:57 03/03/17 12:30 Bedside Glucose 109 168 Medications Medications Current Medications Benazepril HCl (Lotensin) 20 mg BID PO Last administered on 03/03/17 08:21; Admin Dose 20 MG; Start 02/24/17 at 09:00 Furosemide (Lasix) 40 mg BID PO Last administered on 03/03/17 08:22; Admin Dose 40 MG; Start 02/24/17 at 09:00 Famotidine (Pepcid) 20 mg DAILY PO Last administered on 03/03/17 08:23; Admin Dose 20 MG; Start 02/24/17 at 09:00 Atorvastatin Calcium (Lipitor) 20 mg HS PO Last administered on 03/02/17 21:17 ; Admin Dose 20 MG; Start 02/24/17 at 21:00 Diagnostic Test (Pha) (Accu-Chek) 1 ea 02 XX Last administered on 03/02/17 02: 18; Admin Dose 1 EA; Start 02/24/17 at 02:00 Acetaminophen (Tylenol Tab) 650 mg Q6H PRN PO PAIN AND OR ELEVATED TEMP Last administered on 03/01/17 20:52; Admin Dose 650 MG; Start 02/24/17 at 02:00 Ondansetron HCl (Zofran Inj) 4 mg Q4H PRN IV NAUSEA AND/OR VOMITING Last administered on 02/26/17 08:50; Admin Dose 4 MG; Start 02/24/17 at 02:00 Miscellaneous Information 1 ea NOTE XX ; Start 02/24/17 at 03:00 Glucose (Glutose) 15 gm Q15M PRN PO DECREASED GLUCOSE; Start 02/24/17 at 03:00 Glucose (Glutose) 22.5 gm Q15M PRN PO DECREASED GLUCOSE; Start 02/24/17 at 03: 00 Dextrose (D50w Syringe) 25 ml Q15M PRN IV DECREASED GLUCOSE; Start 02/24/17 at 03:00 Dextrose (D50w Syringe) 50 ml Q15M PRN IV DECREASED GLUCOSE; Start 02/24/17 at 03:00 Glucagon (Glucagen) 1 mg Q15M PRN IM DECREASED GLUCOSE; Start 02/24/17 at 03:00 Glucose (Glutose) 15 gm Q15M PRN BUCCAL DECREASED GLUCOSE; Start 02/24/17 at 03 :00 Linagliptin (Tradjenta) 5 mg DAILY PO Last administered on 03/03/17 08:20; Admin Dose 5 MG; Start 02/24/17 at 16:00 Insulin Glargine (Lantus) 30 unit DAILY@08 SC Last administered on 03/03/17 08: 24; Admin Dose 30 UNIT; Start 02/25/17 at 08:00 Meclizine HCl (Antivert) 25 mg TID PO Last administered on 03/03/17 12:36; Admin Dose 25 MG; Start 02/26/17 at 09:00 Prednisone (Prednisone) 60 mg DAILY PO Last administered on 03/03/17 08:22; Admin Dose 60 MG; Start 02/26/17 at 09:00 Warfarin Sodium (Coumadin) 3 mg DAILY@17 PO Last administered on 03/02/17 17:46 ; Admin Dose 3 MG; Start 02/26/17 at 17:00 Gabapentin (Neurontin) 100 mg TID PO Last administered on 03/03/17 12:36; Admin Dose 100 MG; Start 02/26/17 at 21:00 Amoxicillin/ Clavulanate Potassium (Augmentin) 500 mg BID PO Last administered on 03/03/17 08:23; Admin Dose 500 MG; Start 02/27/17 at 14:00; Stop 03/06/17 at 13 :59 Carvedilol (Coreg) 12.5 mg BID PO ; Start 03/02/17 at 21:00 Digoxin (Digoxin) 0.125 mg DAILY@13 PO Last administered on 03/03/17 12:38; Admin Dose 0.125 MG; Start 03/02/17 at 13:00 ANCA BURT NP Mar 03, 2017 14:37
[2017-03-03] MEDS: WARFARIN 3 MG TAB PO SCH (17:27)
[2017-03-03] MEDS: ATORVASTATIN 20 MG TAB PO SCH (21:10)
[2017-03-03] MEDS: ACETAMINOPHEN 325 MG TAB PO PRN (23:16)
[2017-03-04] VITALS (12 sets, daily range): BP systolic 117–132; BP diastolic 58–65; PULSE 40–76; RESP 17–19
[2017-03-04] MEDS: ACCU-CHEK XX SCH (02:00)
[2017-03-04] MEDS: LEVOTHYROXINE 50 MCG TAB PO SCH (06:54)
[2017-03-04] MEDS: INSULIN ASPART [NOVOLOG] 3 ML PEN SC SCH ×7 (08:00→21:00)
[2017-03-04] MEDS: INSULIN GLARGINE [LANtus] 3 ML PEN SC SCH (08:25)
[2017-03-04] MEDS: metFORMIN 500 MG TAB PO SCH ×2 (08:26→18:02)
[2017-03-04] MEDS: MECLIZINE 12.5 MG TAB PO SCH ×3 (08:26→22:11)
[2017-03-04] MEDS: predniSONE 20 MG TAB PO SCH (08:27)
[2017-03-04] MEDS: LINAGLIPTIN 5 MG TABLET PO SCH (08:28)
[2017-03-04] MEDS: FAMOTIDINE 20 MG TAB PO SCH (08:28)
[2017-03-04] MEDS: GABAPENTIN 100 MG CAP PO SCH ×3 (08:28→22:13)
[2017-03-04] MEDS: FUROSEMIDE 40 MG TAB PO SCH ×2 (08:28→22:13)
[2017-03-04] MEDS: AMOXICILLIN/CLAV 500 MG TAB PO SCH ×2 (08:36→22:11)
[2017-03-04] MEDS: BENAZEPRIL 20 MG TAB PO SCH ×2 (08:38→22:13)
[2017-03-04 08:42] LABS: BASOPHILS % 0.1 % (0.0-2.0); EOSINOPHILS # 0.1 10^3/ul (0.0-0.5); EOSINOPHILS % 1.5 % (0.0-7.0); HEMATOCRIT 35.4 % (37.0-47.0); HEMOGLOBIN 11.3 g/dl (12.0-16.0); LYMPHOCYTES # 2.3 10^3/ul (0.8-2.9); LYMPHOCYTES % 24.4 % (15.0-51.0); MEAN CORPUSCULAR HEMOGLOBIN 27.6 pg (29.0-33.0); MEAN CORPUSCULAR HGB CONC 31.9 g/dl (32.0-37.0); MEAN CORPUSCULAR VOLUME 86.6 fl (82.0-101.0); MEAN PLATELET VOLUME 11.4 fl (7.4-10.4); MONOCYTES % 10.5 % (0.0-11.0); NEUTROPHILS % 62.8 % (39.0-77.0); PLATELET COUNT 203 10^3/UL (140-415); RED BLOOD COUNT 4.09 10^6/ul (4.20-5.40); WHITE BLOOD COUNT 9.5 10^3/ul (4.8-10.8)
[2017-03-04 09:20] LABS: IRON 35 ug/dl (35-150)
[2017-03-04 09:21] LABS: CALCIUM 10.5 mg/dl (8.4-10.2); CREATININE 0.9 mg/dl (0.44-1.00); POTASSIUM 3.3 mmol/L (3.5-5.1)
[2017-03-04 09:26] LABS: INR 1.75; PROTIME 20.6 Sec (12.2-14.2); PT RATIO 1.6
[2017-03-04 09:29] LABS: TOTAL IRON BINDING CAPACITY 347 ug/dl (241-421)
[2017-03-04] MEDS: DIGOXIN 0.125 MG TAB PO SCH (13:05)
--- NOTE | 2017-03-04 14:56 | PN ---
Date/Time of Note Date/Time of Note DATE: 03/04/17 TIME: 14:47 Assessment/Plan VTE Prophylaxis VTE Prophylaxis Intervention: ambulation, SCD's Lines/Catheters IV Catheter Type (from [facility]): [place] Assessment/Plan Chief Complaint/Hosp Course 1. Vertigo associated with labyrinthitis. Improving gradually. -Appreciate ENT eval. Recommended prednisone 14day course, benzo and ENT f/u in 6 weeks for audiogram and assessment of vestibular function. -Continue PT 2.Acute sinusitis per MRI auditory canal. Status post treatment 3. A-fib. Controlled. -Continue Coreg, digoxin and Coumadin 4. Hypertension. Stable -Continue antihypertensives 5. DMII- Glycemic control achieved. - Continue with Accu-Cheks, ISS,premeals and Lantus. 5. History of CHF with systolic dysfunction -Continue home medications 6. History of bioprosthetic mitral valve replacement-with subtherapeutic INR -on Coumadin-dose was increased to 6 mg yesterday. repeat level in AM and titrate as indicated. 7.Anemia. HH stable. -Monitor 8. Obesity -Weight reduction advised. 9. Self-care impairment secondary to #1. Continue with PT. PLAN:Overall with improvement in symptoms. She is now able to ambulate within the room without any assist. Will taper off prednisone over 1 week. Start discharge planning home with home health physical therapy soon. Patient also needs ENT and ophthalmology evaluation as outpatient for for audiogram and assessment of vestibular function. Case management to follow. Case discussed with DR. Nuñez Problems: Subjective 24 Hr Interval Summary Free Text/Dictation Overall improving gradually. Able to walk in room without significant dizziness. Exam/Review of Systems Vital Signs Vitals Vital Signs Date Time Temp Pulse Resp B/P Pulse Ox O2 Delivery O2 Flow Rate FiO2 03/04/17 12:38 97.7 88 19 132/62 96 Intake and Output 03/03/17 03/03/17 03/04/17 15:00 23:00 07:00 Intake Total 720 ml 650 ml Balance 720 ml 650 ml Exam General: Obese female, not in any acute distress . HEENT: Normocephalic, Atraumatic, No laceration or hematoma; Eyes: PEERL, Conjunctiva clear, Anicteric sclera Neck: Supple without any lymphadenopathy, nontender, no JVD, no carotid bruits, trachea midline, no thyromegaly. Peripheral vision with some immurement. Cardiac: S1, S2 auscultated, regular rhythm and rate, no mumurs or gallop Pulmonary: Normal respiratory effort. Chest clear to auscultation bilaterally, no adventitious breath sounds GI: Abdomen normal to inspection. Soft, non tender, non- distended, no masses, no rebound tenderness or guarding. Bowel sounds active on all four quadrants Genitourinary: Deferred Extremities: No cyanosis or edema. Pulses [2+] bilaterally. Full ROM on all four extremities. No focal weakness appreciated. Neurologic: Alert,orientedx3. intact sensation. Skin: Clean,dry, and intact. No ecchymosis, no rashes, or lesions Results Result Diagram: 03/04/17 0729 03/04/17 0729 Results 24 hrs Laboratory Tests Test 03/03/17 17:22 03/03/17 21:56 03/04/17 07:29 03/04/17 08:21 Bedside Glucose 214 157 109 White Blood Count 9.5 # Red Blood Count 4.09 L Hemoglobin 11.3 L Hematocrit 35.4 L Mean Corpuscular Volume 86.6 Mean Corpuscular Hemoglobin 27.6 L Mean Corpuscular Hemoglobin Concent 31.9 L Red Cell Distribution Width 14.0 Platelet Count 203 Mean Platelet Volume 11.4 H Neutrophils % 62.8 Lymphocytes % 24.4 Monocytes % 10.5 Eosinophils % 1.5 Basophils % 0.1 Nucleated Red Blood Cells % 0.0 Neutrophils # (Manual) 6.0 Lymphocytes # 2.3 Monocytes # 1.0 H Eosinophils # 0.1 Basophils # 0.0 Nucleated Red Blood Cells # 0.0 Prothrombin Time 20.6 H Prothrombin Time Ratio 1.6 INR International Normalized Ratio 1.75 Sodium Level 139 Potassium Level 3.3 L Chloride Level 95 L Carbon Dioxide Level 34 H Anion Gap 13 Blood Urea Nitrogen 54 H Creatinine 0.90 Glucose Level 92 Calcium Level 10.5 H Iron Level 35 Total Iron Binding Capacity 347 Percent Iron Saturation 10 L Test 03/04/17 12:04 Bedside Glucose 138 Medications Medications Current Medications Benazepril HCl (Lotensin) 20 mg BID PO Last administered on 03/04/17 08:38; Admin Dose 20 MG; Start 02/24/17 at 09:00 Furosemide (Lasix) 40 mg BID PO Last administered on 03/04/17 08:28; Admin Dose 40 MG; Start 02/24/17 at 09:00 Famotidine (Pepcid) 20 mg DAILY PO Last administered on 03/04/17 08:28; Admin Dose 20 MG; Start 02/24/17 at 09:00 Atorvastatin Calcium (Lipitor) 20 mg HS PO Last administered on 03/03/17 21:10 ; Admin Dose 20 MG; Start 02/24/17 at 21:00 Diagnostic Test (Pha) (Accu-Chek) 1 ea 02 XX Last administered on 03/02/17 02: 18; Admin Dose 1 EA; Start 02/24/17 at 02:00 Acetaminophen (Tylenol Tab) 650 mg Q6H PRN PO PAIN AND OR ELEVATED TEMP Last administered on 03/03/17 23:16; Admin Dose 650 MG; Start 02/24/17 at 02:00 Ondansetron HCl (Zofran Inj) 4 mg Q4H PRN IV NAUSEA AND/OR VOMITING Last administered on 02/26/17 08:50; Admin Dose 4 MG; Start 02/24/17 at 02:00 Miscellaneous Information 1 ea NOTE XX ; Start 02/24/17 at 03:00 Glucose (Glutose) 15 gm Q15M PRN PO DECREASED GLUCOSE; Start 02/24/17 at 03:00 Glucose (Glutose) 22.5 gm Q15M PRN PO DECREASED GLUCOSE; Start 02/24/17 at 03: 00 Dextrose (D50w Syringe) 25 ml Q15M PRN IV DECREASED GLUCOSE; Start 02/24/17 at 03:00 Dextrose (D50w Syringe) 50 ml Q15M PRN IV DECREASED GLUCOSE; Start 02/24/17 at 03:00 Glucagon (Glucagen) 1 mg Q15M PRN IM DECREASED GLUCOSE; Start 02/24/17 at 03:00 Glucose (Glutose) 15 gm Q15M PRN BUCCAL DECREASED GLUCOSE; Start 02/24/17 at 03 :00 Linagliptin (Tradjenta) 5 mg DAILY PO Last administered on 03/04/17 08:28; Admin Dose 5 MG; Start 02/24/17 at 16:00 Insulin Glargine (Lantus) 30 unit DAILY@08 SC Last administered on 03/04/17 08: 25; Admin Dose 30 UNIT; Start 02/25/17 at 08:00 Meclizine HCl (Antivert) 25 mg TID PO Last administered on 03/04/17 13:04; Admin Dose 25 MG; Start 02/26/17 at 09:00 Gabapentin (Neurontin) 100 mg TID PO Last administered on 03/04/17 13:05; Admin Dose 100 MG; Start 02/26/17 at 21:00 Amoxicillin/ Clavulanate Potassium (Augmentin) 500 mg BID PO Last administered on 03/04/17 08:36; Admin Dose 500 MG; Start 02/27/17 at 14:00; Stop 03/06/17 at 13 :59 Carvedilol (Coreg) 12.5 mg BID PO Last administered on 03/03/17 21:10; Admin Dose 12.5 MG; Start 03/02/17 at 21:00 Digoxin (Digoxin) 0.125 mg DAILY@13 PO Last administered on 03/04/17 13:05; Admin Dose 0.125 MG; Start 03/02/17 at 13:00 Warfarin Sodium (Coumadin) 6 mg DAILY@17 PO Last administered on 03/03/17 17:27 ; Admin Dose 6 MG; Start 03/03/17 at 17:00 Prednisone (Prednisone) 40 mg DAILY PO Last administered on 03/04/17 08:27; Admin Dose 40 MG; Start 03/04/17 at 09:00 ANCA BURT NP Mar 04, 2017 14:56
[2017-03-04] MEDS ORDERED: POTASSIUM CHLORIDE (SR) 20 MEQ TAB PO STA (15:03)
[2017-03-04] MEDS: WARFARIN 3 MG TAB PO SCH (18:01)
[2017-03-04] MEDS: DIAZEPAM 2 MG TAB PO SCH ×2 (21:00→22:33)
[2017-03-04] MEDS: ATORVASTATIN 20 MG TAB PO SCH (22:13)
[2017-03-05] VITALS (11 sets, daily range): BP systolic 106–135; BP diastolic 51–63; PULSE 50–74; RESP 17–20
[2017-03-05] MEDS: ACCU-CHEK XX SCH (02:00)
[2017-03-05] MEDS: LEVOTHYROXINE 50 MCG TAB PO SCH (06:06)
[2017-03-05] MEDS: INSULIN ASPART [NOVOLOG] 3 ML PEN SC SCH ×7 (08:00→21:00)
[2017-03-05] MEDS: INSULIN GLARGINE [LANtus] 3 ML PEN SC SCH (08:22)
[2017-03-05 08:56] LABS: INR 1.78; PROTIME 20.9 Sec (12.2-14.2); PT RATIO 1.6
[2017-03-05] MEDS: FAMOTIDINE 20 MG TAB PO SCH (09:00)
[2017-03-05] MEDS: AMOXICILLIN/CLAV 500 MG TAB PO SCH ×2 (09:00→21:05)
[2017-03-05] MEDS: metFORMIN 500 MG TAB PO SCH ×2 (09:00→17:41)
[2017-03-05] MEDS: MECLIZINE 12.5 MG TAB PO SCH ×3 (09:00→21:08)
[2017-03-05] MEDS: GABAPENTIN 100 MG CAP PO SCH ×3 (09:01→21:05)
[2017-03-05] MEDS: LINAGLIPTIN 5 MG TABLET PO SCH (09:01)
[2017-03-05] MEDS: FUROSEMIDE 40 MG TAB PO SCH ×2 (09:01→21:06)
[2017-03-05] MEDS: predniSONE 20 MG TAB PO SCH (09:01)
[2017-03-05] MEDS: DIAZEPAM 2 MG TAB PO SCH ×2 (09:01→21:06)
[2017-03-05] MEDS: BENAZEPRIL 20 MG TAB PO SCH ×2 (09:03→21:06)
--- NOTE | 2017-03-05 12:11 | PN ---
Date/Time of Note Date/Time of Note DATE: 03/05/17 TIME: 12:08 Assessment/Plan VTE Prophylaxis VTE Prophylaxis Intervention: ambulation, other (coumadin) Lines/Catheters IV [facility]from [facility] Saline Lock Assessment/Plan Chief Complaint/Hosp Course 1. Vertigo associated with labyrinthitis. Improving gradually. -Appreciate ENT eval. Recommended prednisone 14day course, benzo and ENT f/u in 6 weeks for audiogram and assessment of vestibular function. -Continue PT 2.Acute sinusitis per MRI auditory canal. Status post treatment 3. A-fib. Controlled. -Continue Coreg, digoxin and Coumadin 4. Hypertension. Stable -Continue antihypertensives 5. DMII- Glycemic control achieved. - Continue with Accu-Cheks, ISS,premeals and Lantus. 5. History of CHF with systolic dysfunction -Continue home medications 6. History of bioprosthetic mitral valve replacement-with subtherapeutic INR -Today will give Coumadin 10mg and will repeat INR in AM and adjust dose. 7.Anemia. HH stable. -Monitor 8. Obesity -Weight reduction advised. 9. Self-care impairment secondary to #1. Continue with PT. PLAN:Overall with gradual improvement in symptoms. She is now able to ambulate within the room without any assist. Will taper off prednisone through weekend. Start discharge planning home with home health physical therapy soon. outpatient ENT and ophthalmology evaluation as f/u for audiogram and assessment of vestibular function has been arranged. Case discussed with DR. Cain. Problems: Subjective 24 Hr Interval Summary Free Text/Dictation Patient continues to report dizziness-but improved from before. Blood sugar high today. Exam/Review of Systems Vital Signs Vitals Vital Signs Date Time Temp Pulse Resp B/P Pulse Ox O2 Delivery O2 Flow Rate FiO2 03/05/17 11:43 98.0 64 20 122/62 92 Intake and Output 03/04/17 03/04/17 03/05/17 14:59 22:59 06:59 Intake Total 650 ml 600 ml 350 ml Balance 650 ml 600 ml 350 ml Exam General: Obese female, not in any acute distress . HEENT: Normocephalic, Atraumatic, No laceration or hematoma; Eyes: PEERL, Conjunctiva clear, Anicteric sclera Neck: Supple without any lymphadenopathy, nontender, no JVD, no carotid bruits, trachea midline, no thyromegaly. Peripheral vision with some immurement. Cardiac: S1, S2 auscultated, regular rhythm and rate, no mumurs or gallop Pulmonary: Normal respiratory effort. Chest clear to auscultation bilaterally, no adventitious breath sounds GI: Abdomen normal to inspection. Soft, non tender, non- distended, no masses, no rebound tenderness or guarding. Bowel sounds active on all four quadrants Genitourinary: Deferred Extremities: No cyanosis or edema. Pulses [2+] bilaterally. Full ROM on all four extremities. No focal weakness appreciated. Neurologic: Alert,orientedx3. intact sensation. Skin: Clean,dry, and intact. No ecchymosis, no rashes, or lesions Results Result Diagram: 03/04/17 0703/04/17 0729 Results 24 hrs Laboratory Tests Test 03/04/17 17:59 03/04/17 21:17 03/05/17 07:42 03/05/17 08:19 Bedside Glucose 243 H 167 106 Prothrombin Time 20.9 H Prothrombin Time Ratio 1.6 INR International Normalized Ratio 1.78 Test 03/05/17 11:56 Bedside Glucose 226 H Medications Medications Current Medications Benazepril HCl (Lotensin) 20 mg BID PO Last administered on 03/05/17 09:03; Admin Dose 20 MG; Start 02/24/17 at 09:00 Furosemide (Lasix) 40 mg BID PO Last administered on 03/05/17 09:01; Admin Dose 40 MG; Start 02/24/17 at 09:00 Famotidine (Pepcid) 20 mg DAILY PO Last administered on 03/05/17 09:00; Admin Dose 20 MG; Start 02/24/17 at 09:00 Atorvastatin Calcium (Lipitor) 20 mg HS PO Last administered on 03/04/17 22:13 ; Admin Dose 20 MG; Start 02/24/17 at 21:00 Diagnostic Test (Pha) (Accu-Chek) 1 ea 02 XX Last administered on 03/02/17 02: 18; Admin Dose 1 EA; Start 02/24/17 at 02:00 Acetaminophen (Tylenol Tab) 650 mg Q6H PRN PO PAIN AND OR ELEVATED TEMP Last administered on 03/03/17 23:16; Admin Dose 650 MG; Start 02/24/17 at 02:00 Ondansetron HCl (Zofran Inj) 4 mg Q4H PRN IV NAUSEA AND/OR VOMITING Last administered on 02/26/17 08:50; Admin Dose 4 MG; Start 02/24/17 at 02:00 Miscellaneous Information 1 ea NOTE XX ; Start 02/24/17 at 03:00 Glucose (Glutose) 15 gm Q15M PRN PO DECREASED GLUCOSE; Start 02/24/17 at 03:00 Glucose (Glutose) 22.5 gm Q15M PRN PO DECREASED GLUCOSE; Start 02/24/17 at 03: 00 Dextrose (D50w Syringe) 25 ml Q15M PRN IV DECREASED GLUCOSE; Start 02/24/17 at 03:00 Dextrose (D50w Syringe) 50 ml Q15M PRN IV DECREASED GLUCOSE; Start 02/24/17 at 03:00 Glucagon (Glucagen) 1 mg Q15M PRN IM DECREASED GLUCOSE; Start 02/24/17 at 03:00 Glucose (Glutose) 15 gm Q15M PRN BUCCAL DECREASED GLUCOSE; Start 02/24/17 at 03 :00 Linagliptin (Tradjenta) 5 mg DAILY PO Last administered on 03/05/17 09:01; Admin Dose 5 MG; Start 02/24/17 at 16:00 Insulin Glargine (Lantus) 30 unit DAILY@08 SC Last administered on 03/05/17 08: 22; Admin Dose 30 UNIT; Start 02/25/17 at 08:00 Meclizine HCl (Antivert) 25 mg TID PO Last administered on 03/05/17 09:00; Admin Dose 25 MG; Start 02/26/17 at 09:00 Gabapentin (Neurontin) 100 mg TID PO Last administered on 03/05/17 09:01; Admin Dose 100 MG; Start 02/26/17 at 21:00 Amoxicillin/ Clavulanate Potassium (Augmentin) 500 mg BID PO Last administered on 03/05/17 09:00; Admin Dose 500 MG; Start 02/27/17 at 14:00; Stop 03/06/17 at 13 :59 Carvedilol (Coreg) 12.5 mg BID PO Last administered on 03/05/17 09:02; Admin Dose 12.5 MG; Start 03/02/17 at 21:00 Digoxin (Digoxin) 0.125 mg DAILY@13 PO Last administered on 03/04/17 13:05; Admin Dose 0.125 MG; Start 03/02/17 at 13:00 Warfarin Sodium (Coumadin) 6 mg DAILY@17 PO Last administered on 03/04/17 18:01 ; Admin Dose 6 MG; Start 03/03/17 at 17:00 Prednisone (Prednisone) 40 mg DAILY PO Last administered on 03/05/17 09:01; Admin Dose 40 MG; Start 03/04/17 at 09:00 Diazepam (Valium) 2 mg Q12 PO Last administered on 03/05/17 09:01; Admin Dose 2 MG; Start 03/04/17 at 21:00 ANCA BURT NP Mar 05, 2017 12:11
[2017-03-05] MEDS: DIGOXIN 0.125 MG TAB PO SCH (12:58)
[2017-03-05] MEDS ORDERED: WARFARIN 10 MG TAB PO SCH (17:00)
[2017-03-05] MEDS: ATORVASTATIN 20 MG TAB PO SCH (21:06)
[2017-03-06] VITALS (13 sets, daily range): BP systolic 108–119; BP diastolic 55–64; PULSE 45–89; RESP 16–20
[2017-03-06] MEDS: ACCU-CHEK XX SCH (02:00)
[2017-03-06] MEDS: LEVOTHYROXINE 50 MCG TAB PO SCH (06:23)
[2017-03-06] MEDS: INSULIN ASPART [NOVOLOG] 3 ML PEN SC SCH ×7 (08:00→20:45)
[2017-03-06 08:23] LABS: INR 2.07; PROTIME 23.5 Sec (12.2-14.2); PT RATIO 1.8
[2017-03-06 08:37] LABS: CALCIUM 10.2 mg/dl (8.4-10.2); CREATININE 0.89 mg/dl (0.44-1.00); POTASSIUM 3.7 mmol/L (3.5-5.1)
[2017-03-06] MEDS: FAMOTIDINE 20 MG TAB PO SCH (09:05)
[2017-03-06] MEDS: AMOXICILLIN/CLAV 500 MG TAB PO SCH (09:05)
[2017-03-06] MEDS: MECLIZINE 12.5 MG TAB PO SCH ×3 (09:06→20:47)
[2017-03-06] MEDS: metFORMIN 500 MG TAB PO SCH ×2 (09:06→17:43)
[2017-03-06] MEDS: DIAZEPAM 2 MG TAB PO SCH ×2 (09:06→20:46)
[2017-03-06] MEDS: predniSONE 20 MG TAB PO SCH (09:06)
[2017-03-06] MEDS: LINAGLIPTIN 5 MG TABLET PO SCH (09:06)
[2017-03-06] MEDS: GABAPENTIN 100 MG CAP PO SCH ×3 (09:09→20:46)
[2017-03-06] MEDS: FUROSEMIDE 40 MG TAB PO SCH ×2 (09:09→20:47)
[2017-03-06] MEDS: BENAZEPRIL 20 MG TAB PO SCH ×2 (09:09→20:46)
[2017-03-06] MEDS: INSULIN GLARGINE [LANtus] 3 ML PEN SC SCH (09:16)
--- NOTE | 2017-03-06 10:23 | PN ---
Date/Time of Note Date/Time of Note DATE: 03/06/17 TIME: 10:18 Assessment/Plan VTE Prophylaxis VTE Prophylaxis Intervention: ambulation, SCD's Lines/Catheters IV [facility] Saline [facility] Assessment/Plan Chief Complaint/Hosp Course 1. Vertigo associated with labyrinthitis. Improving gradually. -Appreciate ENT eval. Recommended prednisone 14day course, benzo and ENT f/u in 6 weeks for audiogram and assessment of vestibular function. -Continue PT 2.Acute sinusitis per MRI auditory canal. Status post treatment 3. A-fib. Controlled. -Continue Coreg, digoxin and Coumadin 4. Hypertension. Stable -Continue antihypertensives 5. DMII- Glycemic control achieved. - Continue with Accu-Cheks, ISS,premeals and Lantus. 5. History of CHF with systolic dysfunction -Continue home medications 6. History of bioprosthetic mitral valve replacement- INR finally approached therapeutic 2-3 -Will continue home Coumadin dose now which is 6mg and monitor INR daily. 7.Anemia. HH stable. -Monitor 8. Obesity -Weight reduction advised. 9. Self-care impairment secondary to #1. Continue with PT. PLAN:Overall with significant improvement in symptoms. She is now able to ambulate within the room without any assist. Will taper off prednisone through weekend. Start discharge planning home with home health physical therapy soon. outpatient ENT and ophthalmology evaluation as f/u for audiogram and assessment of vestibular function has been arranged. Case discussed with DR. Cain. Problems: Subjective 24 Hr Interval Summary Free Text/Dictation With overall improvement in mobility status. Dizziness improved. Exam/Review of Systems Vital Signs Vitals Vital Signs Date Time Temp Pulse Resp B/P Pulse Ox O2 Delivery O2 Flow Rate FiO2 03/06/17 08:30 50 03/06/17 07:50 98.9 18 118/63 94 Intake and Output 03/05/17 03/05/17 03/06/17 15:00 23:00 07:00 Intake Total 960 ml Balance 960 ml Exam General: Obese female, not in any acute distress . HEENT: Normocephalic, Atraumatic, No laceration or hematoma; Eyes: PEERL, Conjunctiva clear, Anicteric sclera Neck: Supple without any lymphadenopathy, nontender, no JVD, no carotid bruits, trachea midline, no thyromegaly. Peripheral vision with some immurement. Cardiac: S1, S2 auscultated, regular rhythm and rate, no mumurs or gallop Pulmonary: Normal respiratory effort. Chest clear to auscultation bilaterally, no adventitious breath sounds GI: Abdomen normal to inspection. Soft, non tender, non- distended, no masses, no rebound tenderness or guarding. Bowel sounds active on all four quadrants Genitourinary: Deferred Extremities: No cyanosis or edema. Pulses [2+] bilaterally. Full ROM on all four extremities. No focal weakness appreciated. Neurologic: Alert,orientedx3. intact sensation. Skin: Clean,dry, and intact. No ecchymosis, no rashes, or lesions Results Result Diagram: 03/04/17 0703/06/17 0728 Results 24 hrs Laboratory Tests Test 03/05/17 11:56 03/05/17 17:36 03/05/17 21:11 03/06/17 07:28 Bedside Glucose 226 H 211 150 Prothrombin Time 23.5 H Prothrombin Time Ratio 1.8 INR International Normalized Ratio 2.07 Sodium Level 137 Potassium Level 3.7 Chloride Level 94 L Carbon Dioxide Level 31 Anion Gap 16 Blood Urea Nitrogen 56 H Creatinine 0.89 Glucose Level 93 Calcium Level 10.2 Test 03/06/17 08:32 Bedside Glucose 105 Medications Medications Current Medications Benazepril HCl (Lotensin) 20 mg BID PO Last administered on 03/06/17 09:09; Admin Dose 20 MG; Start 02/24/17 at 09:00 Furosemide (Lasix) 40 mg BID PO Last administered on 03/06/17 09:09; Admin Dose 40 MG; Start 02/24/17 at 09:00 Famotidine (Pepcid) 20 mg DAILY PO Last administered on 03/06/17 09:05; Admin Dose 20 MG; Start 02/24/17 at 09:00 Atorvastatin Calcium (Lipitor) 20 mg HS PO Last administered on 03/05/17 21:06 ; Admin Dose 20 MG; Start 02/24/17 at 21:00 Diagnostic Test (Pha) (Accu-Chek) 1 ea 02 XX Last administered on 03/02/17 02: 18; Admin Dose 1 EA; Start 02/24/17 at 02:00 Acetaminophen (Tylenol Tab) 650 mg Q6H PRN PO PAIN AND OR ELEVATED TEMP Last administered on 03/03/17 23:16; Admin Dose 650 MG; Start 02/24/17 at 02:00 Ondansetron HCl (Zofran Inj) 4 mg Q4H PRN IV NAUSEA AND/OR VOMITING Last administered on 02/26/17 08:50; Admin Dose 4 MG; Start 02/24/17 at 02:00 Miscellaneous Information 1 ea NOTE XX ; Start 02/24/17 at 03:00 Glucose (Glutose) 15 gm Q15M PRN PO DECREASED GLUCOSE; Start 02/24/17 at 03:00 Glucose (Glutose) 22.5 gm Q15M PRN PO DECREASED GLUCOSE; Start 02/24/17 at 03: 00 Dextrose (D50w Syringe) 25 ml Q15M PRN IV DECREASED GLUCOSE; Start 02/24/17 at 03:00 Dextrose (D50w Syringe) 50 ml Q15M PRN IV DECREASED GLUCOSE; Start 02/24/17 at 03:00 Glucagon (Glucagen) 1 mg Q15M PRN IM DECREASED GLUCOSE; Start 02/24/17 at 03:00 Glucose (Glutose) 15 gm Q15M PRN BUCCAL DECREASED GLUCOSE; Start 02/24/17 at 03 :00 Linagliptin (Tradjenta) 5 mg DAILY PO Last administered on 03/06/17 09:06; Admin Dose 5 MG; Start 02/24/17 at 16:00 Meclizine HCl (Antivert) 25 mg TID PO Last administered on 03/06/17 09:06; Admin Dose 25 MG; Start 02/26/17 at 09:00 Gabapentin (Neurontin) 100 mg TID PO Last administered on 03/06/17 09:09; Admin Dose 100 MG; Start 02/26/17 at 21:00 Amoxicillin/ Clavulanate Potassium (Augmentin) 500 mg BID PO Last administered on 03/06/17 09:05; Admin Dose 500 MG; Start 02/27/17 at 14:00; Stop 03/06/17 at 13 :59 Carvedilol (Coreg) 12.5 mg BID PO Last administered on 03/05/17 21:05; Admin Dose 12.5 MG; Start 03/02/17 at 21:00 Digoxin (Digoxin) 0.125 mg DAILY@13 PO Last administered on 03/05/17 12:58; Admin Dose 0.125 MG; Start 03/02/17 at 13:00 Warfarin Sodium (Coumadin) 6 mg DAILY@17 PO Last administered on 03/04/17 18:01 ; Admin Dose 6 MG; Start 03/03/17 at 17:00; Status Future hold Prednisone (Prednisone) 40 mg DAILY PO Last administered on 03/06/17 09:06; Admin Dose 40 MG; Start 03/04/17 at 09:00 Diazepam (Valium) 2 mg Q12 PO Last administered on 03/06/17 09:06; Admin Dose 2 MG; Start 03/04/17 at 21:00 Insulin Glargine (Lantus) 33 unit DAILY@08 SC Last administered on 03/06/17 09: 16; Admin Dose 33 UNIT; Start 03/06/17 at 08:00 ANCA BURT NP Mar 06, 2017 10:23
[2017-03-06] MEDS: DIGOXIN 0.125 MG TAB PO SCH (12:47)
[2017-03-06] MEDS: WARFARIN 3 MG TAB PO SCH (17:00)
[2017-03-06] MEDS: ATORVASTATIN 20 MG TAB PO SCH (20:47)
[2017-03-07] VITALS (13 sets, daily range): BP systolic 104–127; BP diastolic 55–71; PULSE 53–91; RESP 17–19
[2017-03-07] MEDS: ACCU-CHEK XX SCH (01:35)
[2017-03-07] MEDS: LEVOTHYROXINE 50 MCG TAB PO SCH (06:31)
[2017-03-07] MEDS: INSULIN ASPART [NOVOLOG] 3 ML PEN SC SCH ×7 (08:00→20:45)
[2017-03-07] MEDS: INSULIN GLARGINE [LANtus] 3 ML PEN SC SCH (08:21)
[2017-03-07] MEDS: DIAZEPAM 2 MG TAB PO SCH ×2 (08:25→20:36)
[2017-03-07] MEDS: GABAPENTIN 100 MG CAP PO SCH ×3 (08:25→20:36)
[2017-03-07] MEDS: FAMOTIDINE 20 MG TAB PO SCH (08:25)
[2017-03-07] MEDS: metFORMIN 500 MG TAB PO SCH ×2 (08:25→18:13)
[2017-03-07] MEDS: MECLIZINE 12.5 MG TAB PO SCH ×3 (08:26→20:36)
[2017-03-07] MEDS: FUROSEMIDE 40 MG TAB PO SCH ×2 (08:26→20:43)
[2017-03-07] MEDS: BENAZEPRIL 20 MG TAB PO SCH ×2 (08:26→20:43)
[2017-03-07] MEDS: LINAGLIPTIN 5 MG TABLET PO SCH (08:26)
[2017-03-07 08:57] LABS: BASOPHILS % 0.3 % (0.0-2.0); EOSINOPHILS # 0.2 10^3/ul (0.0-0.5); HEMATOCRIT 40.3 % (37.0-47.0); HEMOGLOBIN 12.7 g/dl (12.0-16.0); LYMPHOCYTES % 26.9 % (15.0-51.0); MEAN CORPUSCULAR HEMOGLOBIN 27.1 pg (29.0-33.0); MEAN CORPUSCULAR HGB CONC 31.5 g/dl (32.0-37.0); MEAN CORPUSCULAR VOLUME 85.9 fl (82.0-101.0); MEAN PLATELET VOLUME 11.3 fl (7.4-10.4); MONOCYTES % 9.1 % (0.0-11.0); NEUTROPHILS % 61.2 % (39.0-77.0); PLATELET COUNT 236 10^3/UL (140-415); RED BLOOD COUNT 4.69 10^6/ul (4.20-5.40); RED CELL DISTRIBUTION WIDTH 14.3 % (11.5-14.5); WHITE BLOOD COUNT 11.3 10^3/ul (4.8-10.8)
[2017-03-07] MEDS ORDERED: predniSONE 10 MG TAB PO ONE (09:00)
[2017-03-07 09:18] LABS: INR 2.12; PT RATIO 1.9
--- NOTE | 2017-03-07 10:23 | PN ---
Date/Time of Note Date/Time of Note DATE: 03/07/17 TIME: 10:18 Assessment/Plan VTE Prophylaxis VTE Prophylaxis Intervention: ambulation, SCD's Lines/Catheters IV Catheter Type (from [facility]): Saline Lock Urinary Cath still in place: No Assessment/Plan Chief Complaint/Hosp Course 1. Vertigo associated with labyrinthitis.Improved. -Appreciate ENT eval. Recommended prednisone 14day course-last dose 03/09/17, benzo and ENT f/u in 6 weeks for audiogram and assessment of vestibular function. -Continue PT 2.Acute sinusitis per MRI auditory canal. Status post treatment 3. A-fib. Controlled. -Continue Coreg, digoxin and Coumadin 4. Hypertension. Stable -Continue antihypertensives 5. DMII- Glycemic control achieved. - Continue with Accu-Cheks, ISS,premeals and Lantus. -DM education prior discharge. 5. History of CHF with systolic dysfunction -Continue home medications 6. History of bioprosthetic mitral valve replacement- INR finally therapeutic 2 -3 -Continue Coumadin 6mg and INR daily 7.Anemia. HH stable. -Monitor 8. Obesity -Weight reduction advised. 9. Self-care impairment secondary to #1. Continue with PT. PLAN:Overall with significant improvement in symptoms. She is now able to ambulate within the room without any assist. Will taper off prednisone through weekend. Start discharge planning home with home health physical therapy soon. outpatient ENT and ophthalmology evaluation as f/u for audiogram and assessment of vestibular function has been arranged. Case discussed with DR. Cain. Problems: Subjective 24 Hr Interval Summary Free Text/Dictation Overall with significant improvement. Able to participates in PT. No further dizziness. Exam/Review of Systems Vital Signs Vitals Vital Signs Date Time Temp Pulse Resp B/P Pulse Ox O2 Delivery O2 Flow Rate FiO2 03/07/17 08:26 56 03/07/17 08:13 97.5 18 125/59 98 Exam General: Obese female, not in any acute distress . HEENT: Normocephalic, Atraumatic, No laceration or hematoma; Eyes: PEERL, Conjunctiva clear, Anicteric sclera Neck: Supple without any lymphadenopathy, nontender, no JVD, no carotid bruits, trachea midline, no thyromegaly. Peripheral vision with some immurement. Cardiac: S1, S2 auscultated, regular rhythm and rate, no mumurs or gallop Pulmonary: Normal respiratory effort. Chest clear to auscultation bilaterally, no adventitious breath sounds GI: Abdomen normal to inspection. Soft, non tender, non- distended, no masses, no rebound tenderness or guarding. Bowel sounds active on all four quadrants Genitourinary: Deferred Extremities: No cyanosis or edema. Pulses [2+] bilaterally. Full ROM on all four extremities. No focal weakness appreciated. Neurologic: Alert,orientedx3. intact sensation. Skin: Clean,dry, and intact. No ecchymosis, no rashes, or lesions Results Result Diagram: 03/07/17 0805 03/06/17 0728 Results 24 hrs Laboratory Tests Test 03/06/17 12:46 03/06/17 17:42 03/06/17 20:45 03/07/17 08:05 Bedside Glucose 177 186 115 White Blood Count 11.3 H Red Blood Count 4.69 Hemoglobin 12.7 Hematocrit 40.3 Mean Corpuscular Volume 85.9 Mean Corpuscular Hemoglobin 27.1 L Mean Corpuscular Hemoglobin Concent 31.5 L Red Cell Distribution Width 14.3 Platelet Count 236 Mean Platelet Volume 11.3 H Neutrophils % 61.2 Lymphocytes % 26.9 Monocytes % 9.1 Eosinophils % 2.0 Basophils % 0.3 Nucleated Red Blood Cells % 0.0 Neutrophils # (Manual) 6.9 Lymphocytes # 3.0 H Monocytes # 1.0 H Eosinophils # 0.2 Basophils # 0.0 Nucleated Red Blood Cells # 0.0 Prothrombin Time 24.0 H Prothrombin Time Ratio 1.9 INR International Normalized Ratio 2.12 Test 03/07/17 08:17 Bedside Glucose 107 Medications Medications Current Medications Benazepril HCl (Lotensin) 20 mg BID PO Last administered on 03/07/17 08:26; Admin Dose 20 MG; Start 02/24/17 at 09:00 Furosemide (Lasix) 40 mg BID PO Last administered on 03/07/17 08:26; Admin Dose 40 MG; Start 02/24/17 at 09:00 Famotidine (Pepcid) 20 mg DAILY PO Last administered on 03/07/17 08:25; Admin Dose 20 MG; Start 02/24/17 at 09:00 Atorvastatin Calcium (Lipitor) 20 mg HS PO Last administered on 03/06/17 20:47 ; Admin Dose 20 MG; Start 02/24/17 at 21:00 Diagnostic Test (Pha) (Accu-Chek) 1 ea 02 XX Last administered on 03/02/17 02: 18; Admin Dose 1 EA; Start 02/24/17 at 02:00 Acetaminophen (Tylenol Tab) 650 mg Q6H PRN PO PAIN AND OR ELEVATED TEMP Last administered on 03/03/17 23:16; Admin Dose 650 MG; Start 02/24/17 at 02:00 Ondansetron HCl (Zofran Inj) 4 mg Q4H PRN IV NAUSEA AND/OR VOMITING Last administered on 02/26/17 08:50; Admin Dose 4 MG; Start 02/24/17 at 02:00 Miscellaneous Information 1 ea NOTE XX ; Start 02/24/17 at 03:00 Glucose (Glutose) 15 gm Q15M PRN PO DECREASED GLUCOSE; Start 02/24/17 at 03:00 Glucose (Glutose) 22.5 gm Q15M PRN PO DECREASED GLUCOSE; Start 02/24/17 at 03: 00 Dextrose (D50w Syringe) 25 ml Q15M PRN IV DECREASED GLUCOSE; Start 02/24/17 at 03:00 Dextrose (D50w Syringe) 50 ml Q15M PRN IV DECREASED GLUCOSE; Start 02/24/17 at 03:00 Glucagon (Glucagen) 1 mg Q15M PRN IM DECREASED GLUCOSE; Start 02/24/17 at 03:00 Glucose (Glutose) 15 gm Q15M PRN BUCCAL DECREASED GLUCOSE; Start 02/24/17 at 03 :00 Linagliptin (Tradjenta) 5 mg DAILY PO Last administered on 03/07/17 08:26; Admin Dose 5 MG; Start 02/24/17 at 16:00 Meclizine HCl (Antivert) 25 mg TID PO Last administered on 03/07/17 08:26; Admin Dose 25 MG; Start 02/26/17 at 09:00 Gabapentin (Neurontin) 100 mg TID PO Last administered on 03/07/17 08:25; Admin Dose 100 MG; Start 02/26/17 at 21:00 Carvedilol (Coreg) 12.5 mg BID PO Last administered on 03/06/17 20:47; Admin Dose 12.5 MG; Start 03/02/17 at 21:00 Digoxin (Digoxin) 0.125 mg DAILY@13 PO Last administered on 03/06/17 12:47; Admin Dose 0.125 MG; Start 03/02/17 at 13:00 Warfarin Sodium (Coumadin) 6 mg DAILY@17 PO Last administered on 03/04/17 18:01 ; Admin Dose 6 MG; Start 03/03/17 at 17:00; Status Future hold Diazepam (Valium) 2 mg Q12 PO Last administered on 03/07/17 08:25; Admin Dose 2 MG; Start 03/04/17 at 21:00 Insulin Glargine (Lantus) 33 unit DAILY@08 SC Last administered on 03/07/17 08: 21; Admin Dose 33 UNIT; Start 03/06/17 at 08:00 Prednisone (Prednisone) 20 mg DAILY PO ; Start 03/08/17 at 09:00; Stop 03/09/17 at 09:01 Prednisone (Prednisone) 10 mg ONCE ONCE PO ; Start 03/10/17 at 09:00; Stop 06/14 at 09:01 ANCA BURT NP Mar 07, 2017 10:23
[2017-03-07] MEDS: DIGOXIN 0.125 MG TAB PO SCH (13:24)
[2017-03-07] MEDS: ACETAMINOPHEN 325 MG TAB PO PRN (15:24)
[2017-03-07] MEDS: WARFARIN 3 MG TAB PO SCH (17:00)
[2017-03-07] MEDS: ATORVASTATIN 20 MG TAB PO SCH (20:36)
[2017-03-08] VITALS (8 sets, daily range): BP systolic 109–131; BP diastolic 60–70; PULSE 61–86; RESP 17
[2017-03-08] MEDS: ACCU-CHEK XX SCH (02:00)
[2017-03-08] MEDS: LEVOTHYROXINE 50 MCG TAB PO SCH (06:15)
[2017-03-08] MEDS: INSULIN ASPART [NOVOLOG] 3 ML PEN SC SCH ×7 (08:00→20:16)
[2017-03-08 08:35] LABS: INR 1.82; PROTIME 21.2 Sec (12.2-14.2); PT RATIO 1.7
[2017-03-08] MEDS: INSULIN GLARGINE [LANtus] 3 ML PEN SC SCH (08:45)
[2017-03-08] MEDS: metFORMIN 500 MG TAB PO SCH ×2 (08:46→18:12)
[2017-03-08] MEDS: DIAZEPAM 2 MG TAB PO SCH ×2 (08:46→20:16)
[2017-03-08] MEDS: GABAPENTIN 100 MG CAP PO SCH ×3 (08:46→20:16)
[2017-03-08] MEDS: LINAGLIPTIN 5 MG TABLET PO SCH (08:47)
[2017-03-08] MEDS: predniSONE 20 MG TAB PO SCH (08:47)
[2017-03-08] MEDS: MECLIZINE 12.5 MG TAB PO SCH ×3 (08:47→20:16)
[2017-03-08] MEDS: FUROSEMIDE 40 MG TAB PO SCH ×2 (08:48→20:16)
[2017-03-08] MEDS: FAMOTIDINE 20 MG TAB PO SCH (08:49)
[2017-03-08] MEDS: BENAZEPRIL 20 MG TAB PO SCH ×2 (08:49→20:17)
--- NOTE | 2017-03-08 12:00 | PN ---
Date/Time of Note Date/Time of Note DATE: 03/08/17 TIME: 11:55 Assessment/Plan VTE Prophylaxis VTE Prophylaxis Intervention: SCD's Lines/Catheters IV C[facility]ter Type [facility]from [facility] Saline Lock Urinary Cath still in place: No Assessment/Plan Chief Complaint/Hosp Course 1. Vertigo associated with labyrinthitis.Improved. -Appreciate ENT eval. Recommended prednisone 14day course-last dose 03/09/17, benzo and ENT f/u in 6 weeks for audiogram and assessment of vestibular function. -Continue PT 2.Acute sinusitis per MRI auditory canal. Status post treatment 3. A-fib. Controlled. -Continue Coreg, digoxin and Coumadin 4. Hypertension. Stable -Continue antihypertensives 5. DMII- with too tight control -Decrease Lantus to 30units. Premeal aspart to 10 TID. Continue with Accu-Cheks , ISS -DM education prior discharge. 5. History of CHF with systolic dysfunction. Stable. -Continue home medications 6. History of bioprosthetic mitral valve replacement- INR dropped to 1.8 -Adjust Coumadin to 8mg and INR daily 7.Anemia. HH stable. -Monitor 8. Obesity -Weight reduction advised. 9. Self-care impairment secondary to #1. Continue with PT. PLAN:Overall with significant improvement in symptoms. She is now able to ambulate within the room without any assist. Estimate DC home with PT tomorrow. outpatient ENT and ophthalmology evaluation as f/u for audiogram and assessment of vestibular function has been arranged. Case discussed with DR. Cain. Problems: Subjective 24 Hr Interval Summary Free Text/Dictation Overall doing well. no further dizziness. Exam/Review of Systems Vital Signs Vitals Vital Signs Date Time Temp Pulse Resp B/P Pulse Ox O2 Delivery O2 Flow Rate FiO2 03/08/17 08:16 63 03/08/17 04:37 98.0 17 109/60 94 Intake and Output 03/07/17 03/07/17 03/08/17 15:00 23:00 07:00 Intake Total 700 ml Balance 700 ml Exam General: Obese female, not in any acute distress . HEENT: Normocephalic, Atraumatic, No laceration or hematoma; Eyes: PEERL, Conjunctiva clear, Anicteric sclera Neck: Supple without any lymphadenopathy, nontender, no JVD, no carotid bruits, trachea midline, no thyromegaly. Peripheral vision with some immurement. Cardiac: S1, S2 auscultated, regular rhythm and rate, no mumurs or gallop Pulmonary: Normal respiratory effort. Chest clear to auscultation bilaterally, no adventitious breath sounds GI: Abdomen normal to inspection. Soft, non tender, non- distended, no masses, no rebound tenderness or guarding. Bowel sounds active on all four quadrants Genitourinary: Deferred Extremities: No cyanosis or edema. Pulses [2+] bilaterally. Full ROM on all four extremities. No focal weakness appreciated. Neurologic: Alert,orientedx3. intact sensation. Skin: Clean,dry, and intact. No ecchymosis, no rashes, or lesions Results Result Diagram: 03/07/17 0805 03/06/17 0728 Results 24 hrs Laboratory Tests Test 03/07/17 13:24 03/07/17 18:14 03/07/17 20:35 03/08/17 02:05 Bedside Glucose 172 222 H 200 114 Test 03/08/17 07:22 03/08/17 08:34 Prothrombin Time 21.2 H Prothrombin Time Ratio 1.7 INR International Normalized Ratio 1.82 Bedside Glucose 94 Medications Medications Current Medications Benazepril HCl (Lotensin) 20 mg BID PO Last administered on 03/08/17 08:49; Admin Dose 20 MG; Start 02/24/17 at 09:00 Furosemide (Lasix) 40 mg BID PO Last administered on 03/08/17 08:48; Admin Dose 40 MG; Start 02/24/17 at 09:00 Famotidine (Pepcid) 20 mg DAILY PO Last administered on 03/08/17 08:49; Admin Dose 20 MG; Start 02/24/17 at 09:00 Atorvastatin Calcium (Lipitor) 20 mg HS PO Last administered on 03/07/17 20:36 ; Admin Dose 20 MG; Start 02/24/17 at 21:00 Diagnostic Test (Pha) (Accu-Chek) 1 ea 02 XX Last administered on 03/02/17 02: 18; Admin Dose 1 EA; Start 02/24/17 at 02:00 Acetaminophen (Tylenol Tab) 650 mg Q6H PRN PO PAIN AND OR ELEVATED TEMP Last administered on 03/07/17 15:24; Admin Dose 650 MG; Start 02/24/17 at 02:00 Ondansetron HCl (Zofran Inj) 4 mg Q4H PRN IV NAUSEA AND/OR VOMITING Last administered on 02/26/17 08:50; Admin Dose 4 MG; Start 02/24/17 at 02:00 Miscellaneous Information 1 ea NOTE XX ; Start 02/24/17 at 03:00 Glucose (Glutose) 15 gm Q15M PRN PO DECREASED GLUCOSE; Start 02/24/17 at 03:00 Glucose (Glutose) 22.5 gm Q15M PRN PO DECREASED GLUCOSE; Start 02/24/17 at 03: 00 Dextrose (D50w Syringe) 25 ml Q15M PRN IV DECREASED GLUCOSE; Start 02/24/17 at 03:00 Dextrose (D50w Syringe) 50 ml Q15M PRN IV DECREASED GLUCOSE; Start 02/24/17 at 03:00 Glucagon (Glucagen) 1 mg Q15M PRN IM DECREASED GLUCOSE; Start 02/24/17 at 03:00 Glucose (Glutose) 15 gm Q15M PRN BUCCAL DECREASED GLUCOSE; Start 02/24/17 at 03 :00 Linagliptin (Tradjenta) 5 mg DAILY PO Last administered on 03/08/17 08:47; Admin Dose 5 MG; Start 02/24/17 at 16:00 Meclizine HCl (Antivert) 25 mg TID PO Last administered on 03/08/17 08:47; Admin Dose 25 MG; Start 02/26/17 at 09:00 Gabapentin (Neurontin) 100 mg TID PO Last administered on 03/08/17 08:46; Admin Dose 100 MG; Start 02/26/17 at 21:00 Carvedilol (Coreg) 12.5 mg BID PO Last administered on 03/06/17 20:47; Admin Dose 12.5 MG; Start 03/02/17 at 21:00 Digoxin (Digoxin) 0.125 mg DAILY@13 PO Last administered on 03/07/17 13:24; Admin Dose 0.125 MG; Start 03/02/17 at 13:00 Warfarin Sodium (Coumadin) 6 mg DAILY@17 PO Last administered on 03/07/17 17:00 ; Admin Dose 6 MG; Start 03/03/17 at 17:00; Status Future hold Diazepam (Valium) 2 mg Q12 PO Last administered on 03/08/17 08:46; Admin Dose 2 MG; Start 03/04/17 at 21:00 Prednisone (Prednisone) 20 mg DAILY PO Last administered on 03/08/17 08:47; Admin Dose 20 MG; Start 03/08/17 at 09:00; Stop 03/09/17 at 09:01 Prednisone (Prednisone) 10 mg ONCE ONCE PO ; Start 03/10/17 at 09:00; Stop 06/14 at 09:01 Insulin Glargine (Lantus) 30 unit DAILY@08 SC ; Start 03/09/17 at 08:00 ANCA BURT NP Mar 08, 2017 12:00
[2017-03-08] MEDS: DIGOXIN 0.125 MG TAB PO SCH (12:41)
[2017-03-08] MEDS: WARFARIN 2 MG TAB PO SCH (17:00)
[2017-03-08] MEDS: ATORVASTATIN 20 MG TAB PO SCH (20:16)
[2017-03-08] MEDS: ACETAMINOPHEN 325 MG TAB PO PRN (20:46)
[2017-03-09] VITALS (10 sets, daily range): BP systolic 110–122; BP diastolic 52–66; PULSE 55–81; RESP 17–20
[2017-03-09] MEDS: ACCU-CHEK XX SCH (02:00)
[2017-03-09] MEDS: LEVOTHYROXINE 50 MCG TAB PO SCH (06:05)
[2017-03-09] MEDS: INSULIN ASPART [NOVOLOG] 3 ML PEN SC SCH ×6 (08:00→17:47)
[2017-03-09] MEDS ORDERED: INSULIN GLARGINE [LANtus] 3 ML PEN SC SCH (08:00)
[2017-03-09 08:08] LABS: INR 2.08; PROTIME 23.6 Sec (12.2-14.2); PT RATIO 1.8
[2017-03-09] MEDS: FAMOTIDINE 20 MG TAB PO SCH (08:27)
[2017-03-09] MEDS: metFORMIN 500 MG TAB PO SCH ×2 (08:28→17:43)
[2017-03-09] MEDS: predniSONE 20 MG TAB PO SCH (08:28)
[2017-03-09] MEDS: GABAPENTIN 100 MG CAP PO SCH ×2 (08:28→12:11)
[2017-03-09] MEDS: MECLIZINE 12.5 MG TAB PO SCH ×2 (08:28→12:11)
[2017-03-09] MEDS: LINAGLIPTIN 5 MG TABLET PO SCH (08:28)
[2017-03-09] MEDS: FUROSEMIDE 40 MG TAB PO SCH (08:29)
[2017-03-09] MEDS: BENAZEPRIL 20 MG TAB PO SCH (08:30)
[2017-03-09] MEDS: DIAZEPAM 2 MG TAB PO SCH (08:38)
[2017-03-09] MEDS ORDERED: CARV12.579 PO (09:47)
[2017-03-09] MEDS ORDERED: MECL12.574 PO (09:47)
[2017-03-09] MEDS ORDERED: LANT3I SC (09:47)
[2017-03-09] MEDS ORDERED: NOVO3I SC (09:47)
[2017-03-09] MEDS ORDERED: COU2 PO (09:47)
[2017-03-09] MEDS ORDERED: VAL2 PO (09:47)
[2017-03-09] MEDS ORDERED: DIGO125T PO (09:47)
[2017-03-09] MEDS ORDERED: GABA100C14 PO (09:47)
[2017-03-09] MEDS: DIGOXIN 0.125 MG TAB PO SCH (12:11)
--- NOTE | 2017-03-09 15:42 | DS ---
Date/Time of Note Date/Time of Note DATE: 03/09/17 TIME: 15:37 Discharge Summary Admission/Discharge Info Admit Date/Time Feb 25, 2017 at 17:22 Discharge Date/Time Discharge Diagnosis 1. Vertigo associated with labyrinthitis.Improved. 2.Acute sinusitis per MRI auditory canal. Status post treatment 3. A-fib. Controlled. 4. Hypertension. Stable 5. DMII- 5. History of CHF with systolic dysfunction. Stable. 6. History of bioprosthetic mitral valve replacement-on Coumadin 7.Anemia. 9. Self-care impairment secondary to #1. Patient Condition: Stable Consults ,ENT ,Neuro Procedures 02/26/2017. Auditory canal MRI IMPRESSION: 1. No cerebellopontine angle mass is identified. The bilateral cranial nerve VII/VIII nerve complexes are within normal limits. 2. No acute infarction or intracranial hemorrhage. 3. 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 4. Small chronic left frontal infarction. 5. Mild to moderate bilateral mastoid air cell effusions. 6. Mild left maxillary sinus air fluid level suggesting acute sinusitis. 7. No abnormal intracranial enhancement. 2016. Brain MRI IMPRESSION: 1. No acute intracranial abnormality. No intracranial hemorrhage, mass lesion , infarction or hydrocephalous. 2. Well-circumscribed encephalomalacia involving the paramedian left cerebellar hemisphere, related to remote prior infarct. No evidence of superimposed acute infarction. 3. Gliosis involving the lateral left frontal lobe, which may be related to remote prior cortical contusion versus infarct. 4. Well-circumscribed areas of CSF fluid signal intensity involving the bilateral basal ganglia, which may be related to prominent perivascular spaces versus remote lacunar infarcts. 5. Prominent perivascular space involving the medial right temporal lobe, which may be related to prominent perivascular space versus benign choroidal fissure cyst Hx of Present Illness Hospital Course This is a 52-year-old female with a history of type 2 diabetes, atrial fibrillation, prosthetic mitral valve replacement, type 2 diabetes, CHF, who presented to the emergency room with worsening dizziness with right hearing loss and ringing in right ear. Patient was admitted for evaluation. MRI and CT scan demonstrated old cerebellar infarct without any acute intracranial process. CT showed left maxillary sinusitis and bilateral mastoid opacification. Patient was evaluated by neurology and ENT. She was treated with antibiotic for acute sinusitis. She was treated with meclizine, tapered prednisone with diazepam. In the course of hospitalization, patient was treated with Lantus and pre-meal insulin for hyperglycemia secondary to diabetes. She was also given diabetic education. Patient was continued on home medication for underlying A. fib, hypertension, and CHF. INR was monitored closely and Coumadin dose was adjusted to 8 mg daily and a therapeutic INR was achieved with the dose. She was also instructed on weight reduction for underlying obesity. As per ENT recommendation, patient symptoms secondary to vertigo associated with labyrinthitis which responded to medical management with steroids, meclizine and benzodiazepines. Patient was evaluated by physical therapy and she was able to walk without further dizziness. Patient completed steroid course in-house. She was able to tolerate diet and activities thereafter. At this time, there is no further inpatient workup indicated. Recommendation was to discharge patient with outpatient ophthalmology and ENT follow-up. Patient needed ENT follow-up in 6 weeks for audiogram and assessment of vestibular function. Case management arranged follow-up appointment with specialities. Disposition: Patient will be discharged home with outpatient follow-up. Patient and family verbalized discharge instructions. Approximately 60 minutes was spent in coordinating the discharge on this patient. She was seen in collaboration with [facility] Active Scripts Insulin Aspart* (Novolog Insulin Pen*) 100 Unit/Ml Soln, 10 UNIT SC WITH MEALS, #1 SYR Prov:BURT,ANCA V. EMERGENCY RESPONSE TECHNICIAN 03/09/17 Insulin Glargine* (Lantus*) 100 Unit/Ml Soln, 30 UNIT SC DAILY@08, #1 SYR Prov:BURT,ANCA V. EMERGENCY RESPONSE TECHNICIAN 03/09/17 Meclizine Hcl* (Antivert*) 12.5 Mg Tab, 25 MG PO BID, #60 TAB Prov:BURT,ANCA V. EMERGENCY RESPONSE TECHNICIAN 03/09/17 Gabapentin* (Gabapentin*) 100 Mg Capsule, 100 MG PO TID, #90 CAP Prov:BURT,ANCA V. EMERGENCY RESPONSE TECHNICIAN 03/09/17 Diazepam* (Valium*) 2 Mg Tab, 2 MG PO Q12, #30 TAB Prov:BURT,ANCA V. EMERGENCY RESPONSE TECHNICIAN 03/09/17 Digoxin* (Digitek*) 125 Mcg Tablet, 0.125 MG PO DAILY@13, #30 TAB Prov:BURT,ANCA V. EMERGENCY RESPONSE TECHNICIAN 03/09/17 Carvedilol* (Carvedilol*) 12.5 Mg Tablet, 12.5 MG PO BID, #60 TAB Prov:ANCA BURT V. EMERGENCY RESPONSE TECHNICIAN 03/09/17 Warfarin Sod (Coumadin) 2 Mg Tab, 8 MG PO DAILY@17, #14 TAB Prov:ANCA BURT V. EMERGENCY RESPONSE TECHNICIAN 03/09/17 Warfarin Sodium* (Coumadin*) 3 Mg Tablet, 3 MG PO DAILY, #30 TAB Prov:ANCA BURT V. EMERGENCY RESPONSE TECHNICIAN 02/26/17 Reported Medications Benazepril Hcl* (Benazepril Hcl*) 20 Mg Tablet, 20 MG PO BID, #60 TAB 02/23/17 Furosemide* (Furosemide*) 40 Mg Tablet, 40 MG PO BID, TAB 02/23/17 Levothyroxine Sodium* (Levothyroxine Sodium*) 50 Mcg Tablet, 50 MCG PO BEFORE BREAKFAST, #30 TAB 02/23/17 Omeprazole* (Omeprazole*) 20 Mg Capsule.dr, 20 MG PO AC BREAKFAST, #30 CAP 07/02/16 Simvastatin* (Zocor*) 20 Mg Tablet, 20 MG PO QHS, #30 TAB 07/02/16 Sitagliptin Phos/Metformin HCl (Janumet 50-1,000 mg Tablet) 1 Each Tablet, 1 EACH PO BID, TAB 07/02/16 Discontinued Reported Medications Carvedilol* (Carvedilol*) 25 Mg Tablet, 25 MG PO BID, #60 TAB 02/23/17 Digoxin* (Digitek*) 250 Mcg Tablet, 0.25 MG PO DAILY, TAB 02/23/17 Insulin Glargine,Hum.rec.anlog (Cynthia Smith) 300 Unit/1 Ml Insuln.pen, 97 UNIT SQ QHS 07/02/16 Discontinued Scripts Meclizine Hcl* (Meclizine Hcl*) 25 Mg Tablet, 25 MG PO Q8H Y for DIZZINESS, #30 TAB Prov:FELICIA CID MD 02/23/17 Prednisone* (Prednisone*) 10 Mg Tab, 10 MG PO DAILY, #35 TAB Take 60mg daily on Day 1-4, then 40 mg on day 5, 30mg on day 6, 20mg on day day 7, 10mg on day8, the 5mg on day 9. Prov:EKMEKJIAN,NELLIE R. MD 02/23/17 Follow-up Plan HOME CARE INSTRUCTIONS: Special Diet: CARB CONTROLLED FOLLOW UP/APPOINTMENTS Follow-up Plan 1. Follow-up with DR.David Villatoro today at 1:30 [facility] [place] [id number] [address] [id number] Office 2.Follow up with primary care physician in 1 week If you don't have one please let someone know, we can give you resources that may help you pick one. You may also call your insurance company to assign one to you. Review your medication list with your nurse before leaving and if you need new prescriptions please let your nurse know. I may have made changes to your home medications or given you new prescriptions, please let your primary doctor know as well. Stay compliant with your medications and report any side effects to your PCP or pharmacist. Return to the ER if you have any concerns and cannot reach your doctors or call your insurance company, they usually have a nurse that can help you. 3 Call 911 or go to the nearest emergency room if experiencing loss of consciousness, dizziness, chest pain, shortness of breath, vomiting/abdominal pain, speech difficulties, motor weakness or any unusual symptoms. ANCA BURT NP Feb 26, 2017 11:59 <Electronically signed by ANCA BURT EMERGENCY RESPONSE TECHNICIAN> 02/26/17 1159 <Electronically signed by PIERCE ESPINOZA > 02/26/17 1322 <Electronically signed by PIERCE ESPINOZA > 02/26/17 1322 ~~REPORT ADDENDUM~~ Addendum: ANCA BURT NP on 03/09/17 @ 09:53 Discharge Instructions CONDITION Patient Condition: Stable REFERRALS Other Referrals DR. ESVIN YI - OPTHALMOLOGY DR. TYLER KIMBALL - ENT Patient to bring COPY OF AUTHORIZATION AND ABLE TO MAKE OWN MD APPOINTMENTS Primary Care Provider [facility] Pending Labs Laboratory Tests Test 03/08/17 17:49 03/08/17 20:15 03/09/17 06:53 03/09/17 08:23 Bedside Glucose 192mg/dL (70-220) 161mg/dL (70-220) 98mg/dL (70-220) Prothrombin Time 23.6Sec (12.2-14.2) Prothrombin Time Ratio 1.8 INR International Normalized Ratio 2.08 Test 03/09/17 12:10 Bedside Glucose 171mg/dL (70-220) ANCA BURT V. EMERGENCY RESPONSE TECHNICIAN Mar 09, 2017 15:41
[2017-03-09] MEDS: WARFARIN 2 MG TAB PO SCH (17:43)
[2017-03-10] MEDS ORDERED: predniSONE 10 MG TAB PO ONE (09:00)
== END 2017-03-09 18:32 | disposition home health service (06) | DRG 149 ==
LOC: E/R 16:41 → MS4 21:58 → OBSVTOIN 02-25 17:22
PROVIDERS: ADMIT Internal Medicine; ATTEND Internal Medicine
DX: H83.01 Labyrinthitis, right ear (principal); I50.20 Unspecified systolic (congestive) heart failure; E11.69 Type 2 diabetes mellitus with other specified complication; I11.0 Hypertensive heart disease with heart failure; G93.89 Other specified disorders of brain; E11.65 Type 2 diabetes mellitus with hyperglycemia; I48.91 Unspecified atrial fibrillation; D64.9 Anemia, unspecified; Z95.3 Presence of xenogenic heart valve; Z79.01 Long term (current) use of anticoagulants; R51 Headache; E66.9 Obesity, unspecified; Z68.38 Body mass index [BMI] 38.0-38.9, adult; I69.398 Other sequelae of cerebral infarction; R19.7 Diarrhea, unspecified; E78.5 Hyperlipidemia, unspecified; J01.00 Acute maxillary sinusitis, unspecified
CPT/HCPCS: 36415; 70450; 70551; 71010; 77021; 80048; 80053; 80061; 82962; 83036; 83540; 84443; 84484; 85025; 85610; 85730; 87075; 93005; 93970; 96374; 97116; 97161; 97530; G0378; J1815; J2405; J2930; J3030; J7512

== ENCOUNTER 2018-01-07 00:02 | Inpatient (IN) | END 2018-01-08 19:57 | disposition home or self-care (01) | DRG 683 ==

== ENCOUNTER 2018-02-08 07:21 | Day surgery (SDC) | END 2018-02-08 11:34 | disposition home or self-care (01) ==

== ENCOUNTER 2018-09-13 16:33 | Inpatient (IN) | payer OTHER ==
[~2018-09-13] VITALS: Ht 167.6 cm; Wt 105.4 kg
[2018-09-13] MEDS: INSULIN ASPART [NOVOLOG] 3 ML PEN SC SCH ×3 (08:00→18:00)
[~2018-09-13 16:33] MED LIST changes: +CARV25TA79 PO; -CARV6.2579 PO; -FURO20TA3 PO; +FURO40TA4 PO; +INSU100I12 SQ; +LEVO50TA7 PO; -OMEP20CA16 PO; -SITA1TAB5 PO; +SITA50TA2 PO
[2018-09-13 16:45] VITALS: Ht 167.6 cm; Wt 105.4 kg
[2018-09-13] MEDS ORDERED: FUROSEMIDE 40 MG INJ IV ONE (18:00)
[2018-09-13] MEDS ORDERED: ACETAMINOPHEN 325 MG TAB PO PRN (19:00)
[2018-09-13] MEDS ORDERED: ONDANSETRON 4 MG INJ IV PRN ×2 (19:00→20:30)
[2018-09-13] MEDS ORDERED: INSULIN LISPRO 100 UNIT/ML VIAL SC ONE (19:00)
[2018-09-13] MEDS ORDERED: ASPIRIN 81 MG TAB PO ONE (19:00)
--- NOTE | 2018-09-13 19:03 | ERD ---
ER Documentation Chief Complaint Chief Complaint Complains of abdominal pain hx of Ascites HPI Patient is a 53-year-old female with chronic kidney disease, cirrhosis, diabetes, hypertension, and CHF who presents with shortness of breath. The patient was sent by the [facility] by Dr. [place] Cain. She has had 30 pounds of weight gain in the past 3 months. She has shortness of breath with minimal exertion. The symptoms are worsening. She tried Lasix. ROS All systems reviewed and are negative except as per history of present illness. Medications Home Meds Reported Medications Insulin Lispro (Humalog Kwikpen U-100) 100 Unit/1 Ml Insuln.pen, 10 UNIT SQ TID, EA 01/06/18 Insulin Glargine,Hum.rec.anlog (Toujeo Solostar) 300 Unit/1 Ml Insuln.pen, 86 UNIT SQ QAM, EA 01/06/18 Carvedilol* (Carvedilol*) 25 Mg Tablet, 25 MG PO BID, #60 TAB 01/06/18 Digoxin* (Digitek*) 125 Mcg Tablet, 0.125 MG PO DAILY, TAB 01/06/18 Warfarin Sodium* (Jantoven*) 6 Mg Tablet, 6 MG PO DAILY, TAB 01/06/18 Sitagliptin* (Januvia*) 50 Mg Tablet, 50 MG PO DAILY, #30 TAB 01/06/18 Simvastatin* (Zocor*) 20 Mg Tablet, 20 MG PO QHS, #30 TAB 01/06/18 Levothyroxine Sodium* (Levothyroxine Sodium*) 50 Mcg Tablet, 50 MCG PO BEFORE BREAKFAST, #30 TAB 01/06/18 Furosemide* (Furosemide*) 40 Mg Tablet, 40 MG PO BID, TAB 01/06/18 Allergies Allergies: Coded Allergies: morphine (Verified Allergy, Unknown, 02/08/18) PMhx/Soc History of Surgery: Yes (HEART VALVE REPLACEMENT; CHOLECYSTECTOMY; APPENDECTOMY; ) Anesthesia Reaction: No Hx Neurological Disorder: No Hx Respiratory Disorders: No Hx Cardiac Disorders: Yes (HTN; HEART VALVE; ANEMIA) Hx Psychiatric Problems: No Hx Miscellaneous Medical Probl: No Hx Alcohol Use: No Hx Substance Use: No Hx Tobacco Use: No FmHx Family History: diabetes Physical Exam Vitals Vital Signs Date Temp Pulse Resp B/P (MAP) Pulse Ox O2 O2 Flow FiO2 Time Delivery Rate 09/13/18 98.0 90 20 143/73 95 16:45 (96) Physical Exam Const: No acute distress Head: Atraumatic Eyes: Normal Conjunctiva ENT: Normal External Ears, Nose and Mouth. Neck: Full range of motion. No meningismus. Resp: Clear to auscultation bilaterally Cardio: Regular rate and rhythm, no murmurs Abd: Abdominal distention with anasarca and possible ascites Skin: No petechiae or rashes Back: No midline or flank tenderness Ext: Bilateral lower extremity swelling with 4+ pitting Neur: Awake and alert Psych: Normal Mood and Affect Result Diagram: 09/13/18 1803 09/13/18 180 Results 24 hrs Laboratory Tests Test 09/13/18 18:01 09/13/18 18:03 Bedside Glucose 388 mg/dL White Blood Count 6.4 10^3/ul Red Blood Count 5.30 10^6/ul Hemoglobin 13.4 g/dl Hematocrit 44.5 % Mean Corpuscular Volume 84.0 fl Mean Corpuscular Hemoglobin 25.3 pg Mean Corpuscular Hemoglobin Concent 30.1 g/dl Red Cell Distribution Width 16.7 % Platelet Count 288 10^3/UL Mean Platelet Volume 10.3 fl Immature Granulocytes % 0.500 % Neutrophils % 72.3 % Lymphocytes % 15.2 % Monocytes % 9.7 % Eosinophils % 1.7 % Basophils % 0.6 % Nucleated Red Blood Cells % 0.0 /100WBC Immature Granulocytes # 0.030 10^3/ul Neutrophils # 4.6 10^3/ul Lymphocytes # 1.0 10^3/ul Monocytes # 0.6 10^3/ul Eosinophils # 0.1 10^3/ul Basophils # 0.0 10^3/ul Nucleated Red Blood Cells # 0.0 10^3/ul Prothrombin Time 34.9 Sec Prothrombin Time Ratio 2.7 INR International Normalized Ratio 3.47 Activated Partial Thromboplast Time 43.3 Sec Sodium Level 139 mmol/L Potassium Level 4.7 mmol/L Chloride Level 94 mmol/L Carbon Dioxide Level 31 mmol/L Anion Gap 14 Blood Urea Nitrogen 18 mg/dl Creatinine 0.84 mg/dl Est Glomerular Filtrat Rate mL/min > 60 mL/min Glucose Level 403 mg/dl Calcium Level 9.1 mg/dl Total Bilirubin 0.9 mg/dl Direct Bilirubin 0.00 mg/dl Indirect Bilirubin 0.9 mg/dl Aspartate Amino Transf (AST/SGOT) 21 IU/L Alanine Aminotransferase (ALT/SGPT) 15 IU/L Alkaline Phosphatase 96 IU/L Troponin I < 0.012 ng/ml Total Protein 7.6 g/dl Albumin 3.9 g/dl Globulin 3.70 g/dl Albumin/Globulin Ratio 1.05 Lipase 156 U/L Current Medications Medications Dose Sig/Mlalika Start Time Status Last (Trade) Ordered Route PRN Stop Time Admin Dose Reason Admin Furosemide 40 mg ONCE ONCE 09/13/18 DC 09/13/18 (Lasix) IV 18:00 18:12 09/13/18 18:01 Insulin 10 unit ONCE ONCE 09/13/18 Human SC 19:00 Lispro 09/13/18 19:01 (Humalog) Aspirin 162 mg ONCE ONCE 09/13/18 (Aspirin) PO 19:00 09/13/18 19:01 Ondansetron 4 mg ER BRIDGE 09/13/18 HCl (Zofran PRN IV 19:00 Inj) NAUSEA/VOMITI 09/14/18 18:59 NG 650 mg ER BRIDGE 09/13/18 Acetaminophen PRN PO 19:00 (Tylenol .MILD PAIN 09/14/18 18:59 Tab) 1-3 OR TEMP Procedures/MDM EKG read by me: Rate/Rhythm: Bifascicular block at a regular rate Intervals: Normal Impression: Bifascicular block Chest x-ray read by radiology shows cardiomegaly and pulmonary vascular congestion. Patient is a 53-year-old female presents with anasarca. She has shortness of breath with minimal exertion. She was given Lasix, aspirin, and Humalog. She was found to have hyperglycemia without diabetic ketoacidosis. She will be a difficult patient in terms of fluid status management. The patient has likely ascites and a ultrasound-guided paracentesis was ordered but there is nobody available to perform the procedure at this time. This can be done tomorrow. Th e patient will be admitted to the care of Dr. Gill from the panel team to a telemetry bed. I do believe that inpatient admission is appropriate in this case as she would likely spend more than 2 days in the hospital given her fluid status. Prognosis is poor given her comorbidities. Departure Diagnosis: Primary Impression: Anasarca Additional Impressions: Ascites Ascites type: other type Qualified Codes: R18.8 - Other ascites Hyperglycemia Abdominal pain Abdominal location: generalized Qualified Codes: R10.84 - Generalized abdominal pain Condition: SAMUEL Leung MD Sep 13, 2018 19:03
[2018-09-13] MEDS ORDERED: INSU100C SQ (19:14)
[2018-09-13] MEDS ORDERED: INSU100I33 SC (19:15)
[2018-09-13] MEDS ORDERED: CARV6.2579 PO (19:15)
[2018-09-13] MEDS ORDERED: WARF6TAB PO (19:15)
[2018-09-13] MEDS ORDERED: DIGO125T PO (19:16)
[2018-09-13] MEDS ORDERED: SITA50TA2 PO (19:17)
[2018-09-13] MEDS ORDERED: FER325 PO (19:17)
[2018-09-13] MEDS ORDERED: FURO40TA4 PO (19:18)
[2018-09-13] MEDS ORDERED: SIMV20TA PO (19:18)
[2018-09-13] MEDS ORDERED: LORA10TA3 PO (19:18)
[2018-09-13] MEDS ORDERED: SPIR25TA PO (19:19)
[2018-09-13] MEDS ORDERED: KEN1O TOP (19:20)
[2018-09-13] MEDS ORDERED: BISACODYL (EC) 5 MG TAB PO PRN (20:30)
[2018-09-13] MEDS ORDERED: DOCUSATE SODIUM 100 MG CAP PO PRN (20:30)
[2018-09-13] MEDS ORDERED: HYDROCODONE/APAP (5/325) TAB PO PRN (20:30)
[2018-09-13] MEDS ORDERED: NACL 0.9% 3 ML SYG IV SCH (20:30)
--- NOTE | 2018-09-13 20:41 | HP ---
Date/Time of Note Date/Time of Note DATE: 09/13/18 TIME: 20:40 Assessment/Plan VTE Prophylaxis Pharmacological prophylaxis: warfarin tx Lines/Catheters IV Catheter Type (from [facility]): Saline Lock Assessment/Plan Hospital Course This is a 53-year-old female being admitted to the telemetry floor for: #1 volume overload: Likely secondary to acute on chronic CHF exacerbation, possible underlying liver disease. At the current time will obtain an echocardiogram, echo from December 2017 did show ejection fraction of 40-45% with severe pulmonary hypertension. Will consult cardiology. Patient also has a lot of abdominal wall edema/ascites. Will obtain a ultrasound of the abdomen to assess for underlying ascites. Will consult cardiology . #2 chronic kidney disease: Creatinine 0.85., At the current time will avoid overdose agents, monitor kidney function closely. Patient is nonoliguric. Patient was previously on an LES inhibitor however I do not see this on her med recon, will initiate low-dose lisinopril at the current time. #3 Acute on chronic CHF exacerbation: Previous echocardiogram showed an ejection fraction of approximately 45%. Patient did have signs of severe pulmonary hypertension as well. Will obtain a repeat echocardiogram. Will consult cardiology. Initiate lisinopril, resume home blood pressure medications #4 atrial fibrillation: Currently rate controlled. Will continue carvedilol digoxin, daily INRs, will hold Coumadin at the current time in the setting of need for possible therapeutic paracentesis. #5 Abdominal ascites: Patient's previous CT scan showed hepatomegaly, patient does not have a history of cirrhosis. Will check hepatitis panel, will check ultrasound of the abdomen to assess degree of ascites. #6 diabetes mellitus: Resume home insulin regimen, insulin sliding scale, check hemoglobin A1c #7 hypertension: Resume patient's home medications, will initiate low-dose li sinopril #8 Hypothyroidism: We will check a TSH, will need to confirm patient's home medication dosage for levothyroxine #9 mitral valve replacement: We will hold current Coumadin dose secondary to need for possible therapeutic paracentesis. Goal INR for the patient is 2.5- 3.5. She is currently within therapeutic range, will need to discuss with IR regarding the range of INR they would need in order to perform paracentesis. #10 hyperlipidemia: Continue statin #11 DVT GI prophylaxis: SCDs, no GI prophylaxis indicated Further treatment strategy will be implemented as per the clinical course Result Diagram: 09/13/18 1803 09/13/18 1803 Results 24hrs Laboratory Tests Test 09/13/18 18:01 09/13/18 18:03 Bedside Glucose 388 H White Blood Count 6.4 # Red Blood Count 5.30 # Hemoglobin 13.4 # Hematocrit 44.5 # Mean Corpuscular Volume 84.0 Mean Corpuscular Hemoglobin 25.3 L Mean Corpuscular Hemoglobin Concent 30.1 L Red Cell Distribution Width 16.7 H Platelet Count 288 # Mean Platelet Volume 10.3 Immature Granulocytes % 0.500 H Neutrophils % 72.3 Lymphocytes % 15.2 Monocytes % 9.7 Eosinophils % 1.7 Basophils % 0.6 Nucleated Red Blood Cells % 0.0 Immature Granulocytes # 0.030 Neutrophils # 4.6 Lymphocytes # 1.0 Monocytes # 0.6 Eosinophils # 0.1 Basophils # 0.0 Nucleated Red Blood Cells # 0.0 Prothrombin Time 34.9 #H Prothrombin Time Ratio 2.7 INR International Normalized Ratio 3.47 Activated Partial Thromboplast Time 43.3 H Sodium Level 139 Potassium Level 4.7 Chloride Level 94 L Carbon Dioxide Level 31 Anion Gap 14 H Blood Urea Nitrogen 18 Creatinine 0.84 Est Glomerular Filtrat Rate mL/min > 60 Glucose Level 403 *H Calcium Level 9.1 Total Bilirubin 0.9 Direct Bilirubin 0.00 Indirect Bilirubin 0.9 Aspartate Amino Transf (AST/SGOT) 21 Alanine Aminotransferase (ALT/SGPT) 15 Alkaline Phosphatase 96 Troponin I < 0.012 Total Protein 7.6 Albumin 3.9 Globulin 3.70 H Albumin/Globulin Ratio 1.05 Lipase 156 HPI/ROS Admit Date/Time Admit Date/Time Hx of Present Illness Chief complaint: Worsening edema, ascites This is a 53-year-old female with a of chronic kidney disease, diabetes, hyper tension, and CHF who presents with shortness of breath. The patient was sent by the [facility] by Dr. Alice Cain. She has had 30 pounds of weight gain in the past 3 months. She has shortness of breath with minimal exertion. The symptoms are worsening. She has been on Lasix daily however it is not helped her. She is currently on Coumadin for her mitral valve replacement. Allergies: Morphine Medications: See Aug Const: As per HPI Eyes : No pain discharge or redness or change in visual acuity ENT: No pain, sore throat, congestion, congestion, dysphagia or discharge Respiratory: No shortness of breath, cough, sputum, wheezing, or pleuritic pain Cardiovascular: As per HPI GI : As per HPI Genitourinary: No dysuria, hematuria, flank pain , discharge or CVA tenderness Musculoskeletal: No joint pain, back pain, neck pain, restricted range of motion in neck or joints Skin: No rash, bruising or hives Neuro: No headache, dizziness, syncope, seizure, focal weakness Endocrine: No polyuria, polydipsia, temperature intolerance Psych: No hallucination, depression, anxiety or suicidal ideation PMH/Family/Social Past Medical History chronic kidney disease stage IV, type 2 diabetes mellitus, congestive heart failure atrial fibrillation on Coumadin, hypothyroidism Medications Current Medications Ondansetron HCl (Zofran Inj) 4 mg ER BRIDGE PRN IV NAUSEA/VOMITING; Start 09/13/18 at 19:00; Stop 09/14/18 at 18:59 Acetaminophen (Tylenol Tab) 650 mg ER BRIDGE PRN PO .MILD PAIN 1-3 OR TEMP; Start 09/13/18 at 19:00; Stop 09/14/18 at 18:59 IV Flush (NS 3 ml) 3 ml PER PROTOCOL IV ; Start 09/13/18 at 20:30; Status UNV Ondansetron HCl (Zofran Inj) 4 mg Q6H PRN IV NAUSEA/VOMITING; Start 09/13/18 at 20:30; Status UNV Acetaminophen (Tylenol Tab) 650 mg Q6H PRN PO .PAIN 1-3 OR TEMP; Start 09/13/18 at 20:30 Acetaminophen/ Hydrocodone Bitart ([place] (5/325)) 1 tab Q6H PRN PO .PAIN 4-6; Start 09/13/18 at 20:30; Status UNV Docusate Sodium (Colace) 100 mg Q12H PRN PO .CONSTIPATION; Start 09/13/18 at 20:30 Bisacodyl (Dulcolax) 5 mg DAILY PRN PO .CONSTIPATION; Start 09/13/18 at 20:30 Insulin Glargine (Lantus) 90 unit QHS SC ; Start 09/13/18 at 21:00; Status UNV Loratadine (Claritin) 10 mg DAILY PO ; Start 09/14/18 at 09:00; Status UNV Miscellaneous Information 33 unit WITH MEALS SQ ; Start 09/14/18 at 08:00; Status UNV Atorvastatin Calcium (Lipitor) 10 mg QHS PO ; Start 09/13/18 at 21:00 Miscellaneous Information (* Miscellaneous Pharmacy Order) Discontinue current oral sulfonylur... ONCE ONCE XX ; Start 09/13/18 at 20:30; Stop 09/13/18 at 20:31; Status UNV Diagnostic Test (Pha) (Accu-Chek) 1 XX ; Start 09/14/18 at 02:00; Status UNV Miscellaneous Information (* Miscellaneous Pharmacy Order) HYPOGLYCEMIA PROTOCOL w... ONCE ONCE XX ; Start 09/13/18 at 20:30; Stop 09/13/18 at 20:31; Status UNV Insulin Aspart (Novolog Insulin Pen) NOVOLOG *MILD* ALGORITHM WITH MEALS BEDTIME SC ; Start 09/13/18 at 21:00; Status UNV Miscellaneous Information (* Miscellaneous Pharmacy Order) Discontinue all previ... ONCE ONCE XX ; Start 09/13/18 at 20:30; Stop 09/13/18 at 20:31; Status UNV Coded Allergies: morphine (Verified Allergy, Unknown, 09/13/18) Past Surgical History Mitral valve replacement, cholecystectomy, appendectomy cholecystectomy, C- section 1 Family History Significant Family History: no pertinent family hx Social History Alcohol Use: none Smoking Status: Never smoker Drug Use: none Exam/Review of Systems Vital Signs Vitals Vital Signs Date Temp Pulse Resp B/P (MAP) Pulse Ox O2 O2 Flow FiO2 Time Delivery Rate 09/13/18 98.0 90 20 143/73 95 16:45 (96) Exam Exam General: Patient is currently lying in bed, she does have some mild respiratory distress, HEENT: Atraumatic, normocephalic. The pupils are equal, round and reactive. Extraocular motor are intact Neck: Supple with full range of motion. No rigidity or meningismus Chest: Nontender Lungs: Clear to auscultation bilaterally no crackles rales or wheezing Heart: Normal S1-S2, Regular rhythm and rate. Positive JVD Abdomen: Protuberant abdomen, abdominal wall edema/ascites nondistended , bowel sounds are present. No guarding no rebound tenderness , No masses or organomegaly. No costovertebral temporal angle mass Extremities: Bilateral 2+ pitting edema rmal to inspection, no edema no cyanosis Neurologic: Normal mental status, speech normal, cranial nerves II through XII are intact, motor and sensory are intact, no focal weakness Additional Comments EKG read by me: Rate/Rhythm: Bifascicular block at a regular rate Intervals: Normal Impression: Bifascicular block PROCEDURE: XR Chest. CLINICAL INDICATION: Chest pain TECHNIQUE: Single portable view of the chest was obtained COMPARISON: CR CHEST 07/02/2016 FINDINGS: There is moderate cardiomegaly. The patient is status post sternotomy. There is mild pulmonary vascular congestion. There are bilateral perihilar and lower lobe increased interstitial changes. There is no pleural effusion.. There is no pneumothorax. RPTAT: AA IMPRESSION: Moderate cardiomegaly with mild pulmonary vascular congestion. .Jameel New MD, MD Date Time Electronically viewed and signed by .Jameel New MD, MD on 09/13/2018 18:41 .S/ CC: SAMUEL OLIVEIRA MD [id number] REBA FERREIRA Sep 13, 2018 20:41
[2018-09-13] MEDS ORDERED: INSULIN GLARGINE [LANtus] 3 ML PEN SC SCH ×2 (21:00→22:08)
[2018-09-13 21:30] VITALS: BP 132/78; PULSE 90; RESP 20
[2018-09-13 21:34] VITALS: PULSE 90
[2018-09-13 22:18] VITALS: PULSE 44
[2018-09-13 22:20] VITALS: PULSE 41
[2018-09-13] MEDS: ATORVASTATIN 10 MG TAB PO SCH (23:20)
[2018-09-14] VITALS (11 sets, daily range): BP systolic 112–136; BP diastolic 58–77; PULSE 80–98; RESP 17–18
[2018-09-14] MEDS ORDERED: INSULIN GLARGINE [LANTus] (100 UNITS/ML) SYG SC ONE (00:30)
[2018-09-14] MEDS: ACCU-CHEK XX SCH (02:44)
[2018-09-14] MEDS: FUROSEMIDE 40 MG INJ IV SCH ×2 (06:52→17:22)
[2018-09-14] MEDS: INSULIN ASPART [NOVOLOG] 3 ML PEN SC SCH ×8 (08:01→21:00)
[2018-09-14] MEDS: FERROUS SULFATE (EC) 325 MG TAB PO SCH (08:59)
[2018-09-14] MEDS: LORATADINE 10 MG TAB PO SCH (08:59)
[2018-09-14] MEDS ORDERED: SPIRONOLACTONE 25 MG TAB PO SCH (09:00)
[2018-09-14] MEDS: LISINOPRIL 5 MG TAB PO SCH (09:00)
[2018-09-14] MEDS: ACETAMINOPHEN 325 MG TAB PO PRN (10:32)
--- NOTE | 2018-09-14 12:18 | PN ---
Date/Time of Note Date/Time of Note DATE: 09/14/18 TIME: 12:17 Assessment/Plan VTE Prophylaxis Risk score (from Nsg)>0 risk: 4 SCD applied (from Nsg): Yes Pharmacological prophylaxis: warfarin tx Lines/Catheters IV Catheter Type (from Nrsg): Saline Lock Assessment/Plan Assessment/Plan s: feels better, having some mild L lower abd pain states she's been in [place] and off her meds and thats why DM is so poorly controlled objective : Constitutional: alert, oriented, no distress, obese, blank affect Head: atraumatic, normocephalic Neck: non-tender, supple Respiratory: clear to auscultation, diminished Cardiovascular: regular rate and rhythm Gastrointestinal: S/ NT / ND / +BS Extremities: lorena edema, assessment and plan: 53-year-old female with a of chronic kidney disease, diabetes, hypertension, and CHF sent from O/p PMD for shortness of breath, edema and weight gain. She is currently managed as follows: 1. acute on chronic CHF exacerbation, -Echo from December 2017 did show ejection fraction of 40-45% with severe pulmonary hypertension -ongoing diuresis with BID lasix and spironolactone 2. Diffuse anasarca likely related to #3 with small to moderate ascites 3. Early Hepatic cirrhosis, cause unknown, preserved liver function, normal albumin levels -2/2 chf? -hepatitis profile negative -fatty liver ? -will put in o/p refferal to GI for further workup 4. Chronic atrial fibrillation with good rate control 5. Status post mitral valve replacement 6. Supratherapeutic INR 7. Dyslipidemia with low HDL, hypertriglyceridemia 8. Subclinical hypothyroidism -tsh unreliable in acute setting, free T4 wnl, recommend repeat when patient stable 9. Poorly controlled diabetes mellitus with hyperglycemia and noncompliance to therapy, - She will need diabetic education prior to discharge. -resime meds at lower dosing and titrate as indicated 10. Hypochromasia Dispo: continue diuresis, ambulate with PT, supportive care Result Diagram: 09/14/18 0544 09/14/18 0544 Results 24hrs Laboratory Tests Test 09/13/18 18:01 09/13/18 18:03 09/13/18 23:12 09/14/18 01:44 Bedside Glucose 388 H 255 H 168 White Blood Count 6.4 # Red Blood Count 5.30 # Hemoglobin 13.4 # Hematocrit 44.5 # Mean Corpuscular 84.0 Volume Mean Corpuscular 25.3 L Hemoglobin Mean Corpuscular 30.1 L Hemoglobin Concent Red Cell 16.7 H Distribution Width Platelet Count 288 # Mean Platelet Volume 10.3 Immature 0.500 H Granulocytes % Neutrophils % 72.3 Lymphocytes % 15.2 Monocytes % 9.7 Eosinophils % 1.7 Basophils % 0.6 Nucleated Red Blood 0.0 Cells % Immature 0.030 Granulocytes # Neutrophils # 4.6 Lymphocytes # 1.0 Monocytes # 0.6 Eosinophils # 0.1 Basophils # 0.0 Nucleated Red Blood 0.0 Cells # Prothrombin Time 34.9 #H Prothrombin Time 2.7 Ratio INR International 3.47 Normalized Ratio Activated 43.3 H Partial Thromboplast Time Sodium Level 139 Potassium Level 4.7 Chloride Level 94 L Carbon Dioxide Level 31 Anion Gap 14 H Blood Urea Nitrogen 18 Creatinine 0.84 Est Glomerular > 60 Filtrat Rate mL/min Glucose Level 403 *H Calcium Level 9.1 Total Bilirubin 0.9 Direct Bilirubin 0.00 Indirect Bilirubin 0.9 Aspartate Amino 21 Transf (AST/SGOT) Alanine 15 Aminotransferase (AL T/SGPT) Alkaline Phosphatase 96 Troponin I < 0.012 Total Protein 7.6 Albumin 3.9 Globulin 3.70 H Albumin/Globulin 1.05 Ratio Lipase 156 Test 09/14/18 05:00 09/14/18 05:39 09/14/18 05:44 09/14/18 07:54 B-Type Natriuretic 4170 H Peptide Free Thyroxine 1.59 Free 4.55 Triiodothyronine (T3) pg/mL White Blood Count 6.0 Red Blood Count 4.77 Hemoglobin 12.0 Hematocrit 40.4 Mean Corpuscular 84.7 Volume Mean Corpuscular 25.2 L Hemoglobin Mean Corpuscular 29.7 L Hemoglobin Concent Red Cell 17.0 H Distribution Width Platelet Count 268 Mean Platelet Volume 10.4 Immature 0.300 Granulocytes % Neutrophils % 69.8 Lymphocytes % 15.6 Monocytes % 10.6 Eosinophils % 3.0 Basophils % 0.7 Nucleated Red Blood 0.0 Cells % Immature 0.020 Granulocytes # Neutrophils # 4.2 Lymphocytes # 0.9 Monocytes # 0.6 Eosinophils # 0.2 Basophils # 0.0 Nucleated Red Blood 0.0 Cells # Prothrombin Time 36.5 H Prothrombin Time 2.9 Ratio INR International 3.68 Normalized Ratio Sodium Level 140 Potassium Level 4.1 Chloride Level 97 Carbon Dioxide Level 30 Anion Gap 13 Blood Urea Nitrogen 20 Creatinine 0.85 Est Glomerular > 60 Filtrat Rate mL/min Glucose Level 221 #H Hemoglobin A1c Calcium Level 8.9 Magnesium Level 1.9 Total Bilirubin 0.6 Direct Bilirubin 0.00 Indirect Bilirubin 0.6 Aspartate Amino 19 Transf (AST/SGOT) Alanine 11 L Aminotransferase (AL T/SGPT) Alkaline Phosphatase 83 Total Protein 6.9 Albumin 3.5 Globulin 3.40 H Albumin/Globulin 1.02 Ratio Triglycerides Level 156 H Cholesterol Level 99 L LDL Cholesterol, 51 Calculated HDL Cholesterol 17 L Cholesterol/HDL 5.8 Ratio Thyroid Stimulating 7.920 H Hormone (TSH) Hepatitis B Surface NEGATIVE Antigen Hepatitis B Surface NEGATIVE Antibody Hepatitis B Core NEGATIVE Total Antibody Hepatitis C Antibody NEGATIVE Bedside Glucose 203 Test 09/14/18 11:58 Bedside Glucose 71 Exam/Review of Systems Exam Vitals Vital Signs Date Temp Pulse Resp B/P (MAP) Pulse Ox O2 O2 Flow FiO2 Time Delivery Rate 09/14/18 90 12:13 09/14/18 98.5 18 136/77 92 Room Air 11:20 (96) Results Results 24hrs Laboratory Tests Test 09/13/18 18:01 09/13/18 18:03 09/13/18 23:12 09/14/18 01:44 Bedside Glucose 388 H 255 H 168 White Blood Count 6.4 # Red Blood Count 5.30 # Hemoglobin 13.4 # Hematocrit 44.5 # Mean Corpuscular 84.0 Volume Mean Corpuscular 25.3 L Hemoglobin Mean Corpuscular 30.1 L Hemoglobin Concent Red Cell 16.7 H Distribution Width Platelet Count 288 # Mean Platelet Volume 10.3 Immature 0.500 H Granulocytes % Neutrophils % 72.3 Lymphocytes % 15.2 Monocytes % 9.7 Eosinophils % 1.7 Basophils % 0.6 Nucleated Red Blood 0.0 Cells % Immature 0.030 Granulocytes # Neutrophils # 4.6 Lymphocytes # 1.0 Monocytes # 0.6 Eosinophils # 0.1 Basophils # 0.0 Nucleated Red Blood 0.0 Cells # Prothrombin Time 34.9 #H Prothrombin Time 2.7 Ratio INR International 3.47 Normalized Ratio Activated 43.3 H Partial Thromboplast Time Sodium Level 139 Potassium Level 4.7 Chloride Level 94 L Carbon Dioxide Level 31 Anion Gap 14 H Blood Urea Nitrogen 18 Creatinine 0.84 Est Glomerular > 60 Filtrat Rate mL/min Glucose Level 403 *H Calcium Level 9.1 Total Bilirubin 0.9 Direct Bilirubin 0.00 Indirect Bilirubin 0.9 Aspartate Amino 21 Transf (AST/SGOT) Alanine 15 Aminotransferase (AL T/SGPT) Alkaline Phosphatase 96 Troponin I < 0.012 Total Protein 7.6 Albumin 3.9 Globulin 3.70 H Albumin/Globulin 1.05 Ratio Lipase 156 Test 09/14/18 05:00 09/14/18 05:39 09/14/18 05:44 09/14/18 07:54 B-Type Natriuretic 4170 H Peptide Free Thyroxine 1.59 Free 4.55 Triiodothyronine (T3) pg/mL White Blood Count 6.0 Red Blood Count 4.77 Hemoglobin 12.0 Hematocrit 40.4 Mean Corpuscular 84.7 Volume Mean Corpuscular 25.2 L Hemoglobin Mean Corpuscular 29.7 L Hemoglobin Concent Red Cell 17.0 H Distribution Width Platelet Count 268 Mean Platelet Volume 10.4 Immature 0.300 Granulocytes % Neutrophils % 69.8 Lymphocytes % 15.6 Monocytes % 10.6 Eosinophils % 3.0 Basophils % 0.7 Nucleated Red Blood 0.0 Cells % Immature 0.020 Granulocytes # Neutrophils # 4.2 Lymphocytes # 0.9 Monocytes # 0.6 Eosinophils # 0.2 Basophils # 0.0 Nucleated Red Blood 0.0 Cells # Prothrombin Time 36.5 H Prothrombin Time 2.9 Ratio INR International 3.68 Normalized Ratio Sodium Level 140 Potassium Level 4.1 Chloride Level 97 Carbon Dioxide Level 30 Anion Gap 13 Blood Urea Nitrogen 20 Creatinine 0.85 Est Glomerular > 60 Filtrat Rate mL/min Glucose Level 221 #H Hemoglobin A1c Calcium Level 8.9 Magnesium Level 1.9 Total Bilirubin 0.6 Direct Bilirubin 0.00 Indirect Bilirubin 0.6 Aspartate Amino 19 Transf (AST/SGOT) Alanine 11 L Aminotransferase (AL T/SGPT) Alkaline Phosphatase 83 Total Protein 6.9 Albumin 3.5 Globulin 3.40 H Albumin/Globulin 1.02 Ratio Triglycerides Level 156 H Cholesterol Level 99 L LDL Cholesterol, 51 Calculated HDL Cholesterol 17 L Cholesterol/HDL 5.8 Ratio Thyroid Stimulating 7.920 H Hormone (TSH) Hepatitis B Surface NEGATIVE Antigen Hepatitis B Surface NEGATIVE Antibody Hepatitis B Core NEGATIVE Total Antibody Hepatitis C Antibody NEGATIVE Bedside Glucose 203 Test 09/14/18 11:58 Bedside Glucose 71 Medications Medication Current Medications IV Flush (NS 3 ml) 3 ml PER PROTOCOL IV ; Start 09/13/18 at 20:30 Ondansetron HCl (Zofran Inj) 4 mg Q6H PRN IV NAUSEA/VOMITING; Start 09/13/18 at 20:30 Acetaminophen (Tylenol Tab) 650 mg Q6H PRN PO .PAIN 1-3 OR TEMP Last administered on 09/14/18at 10:32; Admin Dose 650 MG; Start 09/13/18 at 20:30 Acetaminophen/ Hydrocodone Bitart ([place] (5/325)) 1 tab Q6H PRN PO .PAIN 4-6; Start 09/13/18 at 20:30 Docusate Sodium (Colace) 100 mg Q12H PRN PO .CONSTIPATION; Start 09/13/18 at 20:30 Bisacodyl (Dulcolax) 5 mg DAILY PRN PO .CONSTIPATION; Start 09/13/18 at 20:30 Loratadine (Claritin) 10 mg DAILY PO Last administered on 09/14/18 08:59; Admin Dose 10 MG; Start 09/14/18 at 09:00 Insulin Aspart (Novolog Insulin Pen) 33 unit WITH MEALS SC Last administered on 09/14/18 08:01; Admin Dose 33 UNIT; Start 09/13/18 at 08:00 Atorvastatin Calcium (Lipitor) 10 mg QHS PO Last administered on 09/13/18 23:20; Admin Dose 10 MG; Start 09/13/18 at 21:00 Diagnostic Test (Pha) (Accu-Chek) 1 ea 02 XX Last administered on 09/14/18at 02:44; Admin Dose 1 EA; Start 09/14/18 at 02:00 Insulin Aspart (Novolog Insulin Pen) NOVOLOG *MILD* ALGORITHM WITH MEALS BEDTIME SC Last administered on 09/14/18 08:05; Admin Dose 2 UNIT; Start 09/13/18 at 21:00 Insulin Glargine (Lantus) 80 unit QHS SC ; Start 09/14/18 at 20:00 Carvedilol (Coreg) 6.25 mg BID PO Last administered on 09/14/18 09:00; Admin Dose 6.25 MG; Start 09/14/18 at 09:00 Digoxin (Digoxin) 0.125 mg DAILY@1300 PO ; Start 09/14/18 at 13:00 Spironolactone (Aldactone) 25 mg DAILY PO Last administered on 09/14/18at 10:05; Admin Dose 25 MG; Start 09/14/18 at 09:00 Furosemide (Lasix) 40 mg BID DIURETICS IV Last administered on 09/14/18 06:52; Admin Dose 40 MG; Start 09/14/18 at 06:00 Ferrous Sulfate (Ferrous Sulfate (Ec)) 325 mg DAILY PO Last administered on 09/14/18at 08:59; Admin Dose 325 MG; Start 09/14/18 at 09:00 Lisinopril (Zestril) 5 mg DAILY PO Last administered on 09/14/18 09:00; Admin Dose 5 MG; Start 09/14/18 at 09:00 ALFONZO BISHOP Sep 14, 2018 12:18
[2018-09-14] MEDS: DIGOXIN 0.125 MG TAB PO SCH (12:24)
[2018-09-14] MEDS ORDERED: GLUCAGON 1 MG INJ IM PRN (13:00)
[2018-09-14] MEDS ORDERED: GLUCOSE GEL 15 GRAM TUBE BUCCAL PRN (13:00)
[2018-09-14] MEDS ORDERED: DEXTROSE 50% 50 ML SYRINGE IV PRN ×2 (13:00)
[2018-09-14] MEDS ORDERED: GLUCOSE GEL 15 GRAM TUBE PO PRN ×2 (13:00)
--- NOTE | 2018-09-14 13:33 | RADRPT ---
Echocardiogram Report Patient Name: ALICJA ALVARENGAPatient ID: [id number] : 1965 (53y 8m)Study Date: 09/14/2018 7:44:32 AM Gender: FAccession #: [id number] Tech: Jim Garcia RDCS Location: Ref.Physician: REBA FERREIRA Height(Cm): BSA: Weight(Kg): Quality: AdequateAccount #: Procedures: Echocardiographic Report: Transthoracic echocardiogram with complete 2D, M-Mode, and doppler examination. Indications: Congestive Heart Failure. Measurements: 2D/M Mode Doppler Measurement Value Normal Range Measurement Value Normal Range LVIDd 2D 4.5 [ 3.8 - 5.2 ] cm AV Peak Walter 1.0 [ 100.0 - 170.0 ] cm/sec LVIDs 2D 2.7 [ 2.2 - 3.5 ] cm AV Peak PG 4.0 [ 2.0 - 9.0 ] mmHg LVPWd 2D 1.2 [ 0.6 - 0.9 ] cm AI Peak PG 21.0 mmHg IVSd 2D 1.1 [ 0.6 - 0.9 ] cm AI Peak Waletr 2.3 cm/sec AoR Diam 2D 2.9 [ 2.3 - 3.1 ] cm AI PHT 192.0 msec EDV 2D 93.4 [ 46.0 - 106.0 ] ml LVOT Peak Walter 0.7 [ 70.0 - 110.0 ] cm/sec ESV 2D 28.0 [ 14.0 - 42.0 ] ml LVOT Peak PG 2.0 [ 2.0 - 6.0 ] mmHg EF 2D 70.0 [ 54.0 - 74.0 ] percent MV E Peak Walter 2.0 [ 60.0 - 130.0 ] cm/sec LA Dimen 2D 5.2 [ 2.7 - 3.8 ] cm MV Peak Walter 2.6 [ 60.0 - 130.0 ] cm/sec MV Peak PG 28.0 [ 1.0 - 10.0 ] mmHg MV Mean Walter 1.4 cm/sec MV Mean PG 11.0 mmHg MV Decel Time 349 [ 104 - 258 ] msec Lat E` Walter 0.1 [ 10.0 - 15.0 ] cm/sec Lateral E/E` 39.8 [ 1.0 - 2.0 ] ratio Med E` Walter 0.0 cm/sec MV VTI 63.0 cm TR Mean Walter 4.0 cm/sec TR Mean PG 65.0 mmHg RVSP 75.0 [ 10.0 - 36.0 ] mmHg RA Pressure 10.0 mmHg Findings: Left Ventricle: Normal left ventricular cavity size. Mild concentric left ventricular hypertrophy. Ejection fraction is visually estimated at 45 %. Tissue Doppler/Mitral Doppler indices are indeterminate in this study due to the presence of mitral valve replacement. Right Ventricle: Severe right ventricular systolic dysfunction. Severe enlargement of right ventricle. Severe right ventricular hypokinesis. Flattened Septum in diastole ("D"shaped left ventricle) consistent with RV volume overload. Left Atrium: There is moderate enlargement of left atrium. Right Atrium: There is severe enlargement of right atrium. Mitral Valve: Mitral valve is not well visualized. Trace mitral regurgitation. Mitral Valve Bio Prosthesis. Mitral valve Max Velocity 2.63 m/sec. MaxPG 28.00 mmHg. MeanPG 11.00 mmHg. Aortic Valve: Aortic valve not well visualized. No hemodynamically significant aortic stenosis by doppler. Aortic cusps appear mildly calcified. Mild aortic valve regurgitation. Tricuspid Valve: Normal appearance of the tricuspid valve. Estimated peak PA systolic pressure 75 mmHg. There is moderate to severe tricuspid regurgitation. Pulmonic Valve: Normal pulmonic valve appearance. There is mild pulmonic regurgitation. Pericardium: Small pericardial effusion. Aorta: Normal aortic root. IVC: Dilated IVC without respiratory collapse consistent with elevated right atrial pressure. Conclusions: There is moderate enlargement of left atrium. There is severe enlargement of right atrium. Severe right ventricular systolic dysfunction. Severe enlargement of right ventricle. Severe right ventricular hypokinesis. Flattened Septum in diastole ("D"shaped left ventricle) consistent with RV volume overload. Normal left ventricular cavity size. Mild concentric left ventricular hypertrophy. Ejection fraction is visually estimated at 45 %. Tissue Doppler/Mitral Doppler indices are indeterminate in this study due to the presence of mitral valve replacement. Mitral valve is not well visualized. Trace mitral regurgitation. Mitral Valve Bio Prosthesis. Mitral valve Max Velocity 2.63 m/sec. MaxPG 28.00 mmHg. MeanPG 11.00 mmHg. Aortic valve not well visualized, possibly bioprosthetic. No hemodynamically significant aortic stenosis by doppler. Aortic cusps appear mildly calcified. Mild aortic valve regurgitation. Normal appearance of the tricuspid valve. Estimated peak PA systolic pressure 75 mmHg. There is moderate to severe tricuspid regurgitation. Dilated IVC without respiratory collapse consistent with elevated right atrial pressure. Small pericardial effusion. Electronically Signed By: Tony Larkin 2018-09-14 13:32:40 PDT
--- NOTE | 2018-09-14 17:16 | CONS ---
Assessment/Plan Cardiology NYHA: III Heart Failure Type: Acute Heart Failure Type: Systolic Assessment/Plan Hospital Course (Demo Recall) Acute decompensated left ventricular and right ventricular systolic failure Cardia myopathy left ventricular ejection fraction 45% RV dysfunction Severe pulmonary hypertension Atrial fibrillation History of bioprosthetic mitral valve Diabetes Hypertension -Patient with evidence of significant abdominal distention, lower extremity edema and decreased breath sounds at the bases. -Echocardiogram with severe RV dysfunction and pulmonary hypertension -Serial cardiac enzymes remain negative -Would continue IV diuretics, increased dose of Aldactone -Continue beta-blockers heart rate and blood pressure permits, LES inhibitor as renal function and blood pressure permits. -We will likely need paracentesis Consultation Date/Type/Reason Admit Date/Time Type of Consult Cardiology Reason for Consultation Shortness of breath and abdominal swelling Date/Time of Note DATE: 09/14/18 TIME: 17:08 Hx of Present Illness This is a 53-year-old female with past medical history of cardiomyopathy, right ventricular dysfunction, bioprosthetic mitral valve who presents with worsening progressive shortness of breath and increased abdominal ascites. Denies any chest pain, dizziness or lightheadedness. Abdominal swelling, lower extremity edema has progressively been worsening. Denies fevers or chills. He has difficulty lying down flat because of shortness of breath and her abdominal girth. Symptoms have improved since diuretics have been adjusted. 12 point review of systems was performed with all pertinent positives and negatives mentioned above and all else is negative Past Medical History Pulmonary hypertension Diabetes Atrial fibrillation Medical History: congestive heart failure, hypertension Home Meds Reported Medications Triamcinolone Acetonide* (Kenalog*) 0.1%-15GM Oint, 1 APPLIC TOP BID, #1 EA 09/13/18 Spironolactone* (Aldactone*) 25 Mg Tablet, 25 MG PO DAILY, #30 TAB 09/13/18 Simvastatin* (Zocor*) 20 Mg Tablet, 20 MG PO QHS, #30 TAB 09/13/18 Loratadine* (Loratadine*) 10 Mg Tablet, 10 MG PO DAILY, #30 TAB 09/13/18 Furosemide* (Furosemide*) 40 Mg Tablet, 40 MG PO TID, TAB 09/13/18 Sitagliptin* (Januvia*) 50 Mg Tablet, 50 MG PO DAILY, #30 TAB 09/13/18 Ferrous Sulfate* (Ferrous Sulfate*) 325 Mg Tabec, 325 MG PO DAILY, TAB 09/13/18 Digoxin* (Digitek*) 125 Mcg Tablet, 0.125 MG PO DAILY, TAB 09/13/18 Warfarin Sodium* (Coumadin*) 6 Mg Tablet, 6 MG PO DAILY, TAB 09/13/18 Carvedilol* (Carvedilol*) 6.25 Mg Tablet, 6.25 MG PO BID, #60 TAB 09/13/18 Insulin Glargine,Hum.rec.anlog (Basaglar Kwikpen U-100) 100 Unit/1 Ml Insuln.p en, 90 UNIT SC QHS, EA 09/13/18 Insulin Lispro (Humalog) 100 Unit/1 Ml Cartridge, 33 UNIT SQ WITH MEALS, EA 09/13/18 Discontinued Reported Medications Insulin Lispro (Humalog Kwikpen U-100) 100 Unit/1 Ml Insuln.pen, 10 UNIT SQ TID, EA 01/06/18 Insulin Glargine,Hum.rec.anlog (Cynthia Smith) 300 Unit/1 Ml Insuln.pen, 86 UNIT SQ QAM, EA 01/06/18 Carvedilol* (Carvedilol*) 25 Mg Tablet, 25 MG PO BID, #60 TAB 01/06/18 Digoxin* (Digitek*) 125 Mcg Tablet, 0.125 MG PO DAILY, TAB 01/06/18 Warfarin Sodium* (Jantoven*) 6 Mg Tablet, 6 MG PO DAILY, TAB 01/06/18 Sitagliptin* (Januvia*) 50 Mg Tablet, 50 MG PO DAILY, #30 TAB 01/06/18 Simvastatin* (Zocor*) 20 Mg Tablet, 20 MG PO QHS, #30 TAB 01/06/18 Levothyroxine Sodium* (Levothyroxine Sodium*) 50 Mcg Tablet, 50 MCG PO BEFORE BREAKFAST, #30 TAB 01/06/18 Furosemide* (Furosemide*) 40 Mg Tablet, 40 MG PO BID, TAB 01/06/18 Medications Current Medications IV Flush (NS 3 ml) 3 ml PER PROTOCOL IV ; Start 09/13/18 at 20:30 Ondansetron HCl (Zofran Inj) 4 mg Q6H PRN IV NAUSEA/VOMITING; Start 09/13/18 at 20:30 Acetaminophen (Tylenol Tab) 650 mg Q6H PRN PO .PAIN 1-3 OR TEMP Last administered on 09/14/18 10:32; Admin Dose 650 MG; Start 09/13/18 at 20:30 Acetaminophen/ Hydrocodone Bitart ([place] (5/325)) 1 tab Q6H PRN PO .PAIN 4-6; Start 09/13/18 at 20:30 Docusate Sodium (Colace) 100 mg Q12H PRN PO .CONSTIPATION; Start 09/13/18 at 20:30 Bisacodyl (Dulcolax) 5 mg DAILY PRN PO .CONSTIPATION; Start 09/13/18 at 20:30 Loratadine (Claritin) 10 mg DAILY PO Last administered on 09/14/18 08:59; Admin Dose 10 MG; Start 09/14/18 at 09:00 Atorvastatin Calcium (Lipitor) 10 mg QHS PO Last administered on 09/13/18 23:20; Admin Dose 10 MG; Start 09/13/18 at 21:00 Diagnostic Test (Pha) (Accu-Chek) 1 ea 02 XX Last administered on 09/14/18 02:44; Admin Dose 1 EA; Start 09/14/18 at 02:00 Insulin Aspart (Novolog Insulin Pen) NOVOLOG *MILD* ALGORITHM WITH MEALS BEDTIME SC Last administered on 09/14/18 08:05; Admin Dose 2 UNIT; Start 09/13/18 at 21:00 Carvedilol (Coreg) 6.25 mg BID PO Last administered on 09/14/18 09:00; Admin Dose 6.25 MG; Start 09/14/18 at 09:00 Digoxin (Digoxin) 0.125 mg DAILY@1300 PO Last administered on 09/14/18 12:24; Admin Dose 0.125 MG; Start 09/14/18 at 13:00 Spironolactone (Aldactone) 25 mg DAILY PO Last administered on 09/14/18 10:05; Admin Dose 25 MG; Start 09/14/18 at 09:00 Furosemide (Lasix) 40 mg BID DIURETICS IV Last administered on 09/14/18 06:52; Admin Dose 40 MG; Start 09/14/18 at 06:00 Ferrous Sulfate (Ferrous Sulfate (Ec)) 325 mg DAILY PO Last administered on 09/14/18 08:59; Admin Dose 325 MG; Start 09/14/18 at 09:00 Lisinopril (Zestril) 5 mg DAILY PO Last administered on 09/14/18at 09:00; Admin Dose 5 MG; Start 09/14/18 at 09:00 Insulin Glargine (Lantus) 26 units DAILY@0800 SC ; Start 09/15/18 at 08:00 Insulin Aspart (Novolog Insulin Pen) 9 unit WITH MEALS SC ; Start 09/14/18 at 18:00 Miscellaneous Information 1 ea NOTE XX ; Start 09/14/18 at 13:00 Glucose (Glutose) 15 gm Q15M PRN PO DECREASED GLUCOSE; Start 09/14/18 at 13:00 Glucose (Glutose) 22.5 gm Q15M PRN PO DECREASED GLUCOSE; Start 09/14/18 at 13:00 Dextrose (D50w Syringe) 25 ml Q15M PRN IV DECREASED GLUCOSE; Start 09/14/18 at 13:00 Dextrose (D50w Syringe) 50 ml Q15M PRN IV DECREASED GLUCOSE; Start 09/14/18 at 13:00 Glucagon (Glucagen) 1 mg Q15M PRN IM DECREASED GLUCOSE; Start 09/14/18 at 13:00 Glucose (Glutose) 15 gm Q15M PRN BUCCAL DECREASED GLUCOSE; Start 09/14/18 at 13:00 Allergies: Coded Allergies: morphine (Verified Allergy, Unknown, 09/13/18) Past Surgical History Past Surgical Hx: other (Including but not limited to bioprosthetic mitral valve replacement) Social History Alcohol Use: none Smoking Status: Never smoker Drug Use: none Exam/Review of Systems Vital Signs Vitals Vital Signs Date Temp Pulse Resp B/P (MAP) Pulse Ox O2 O2 Flow FiO2 Time Delivery Rate 09/14/18 90 16:20 09/14/18 97.4 18 113/58 93 Room Air 15:20 (76) Exam Constitutional: alert, oriented (No dyspnea with speaking) Head: normocephalic Respiratory: other (Coarse breath sounds bilaterally, decreased at the bases, no wheezing) Cardiovascular: irregular rhythm, systolic murmur (S1-S2 heard) Gastrointestinal: soft, ascites, distended, other (Bowel sounds positive) Extremities: edema Labs Result Diagram: 09/14/18 0544 09/14/18 0544 Results 24hrs Laboratory Tests Test 3/18/19 18:01 09/13/18 18:03 09/13/18 23:12 09/14/18 01:44 Bedside Glucose 388 H 255 H 168 White Blood Count 6.4 # Red Blood Count 5.30 # Hemoglobin 13.4 # Hematocrit 44.5 # Mean Corpuscular 84.0 Volume Mean Corpuscular 25.3 L Hemoglobin Mean Corpuscular 30.1 L Hemoglobin Concent Red Cell 16.7 H Distribution Width Platelet Count 288 # Mean Platelet Volume 10.3 Immature 0.500 H Granulocytes % Neutrophils % 72.3 Lymphocytes % 15.2 Monocytes % 9.7 Eosinophils % 1.7 Basophils % 0.6 Nucleated Red Blood 0.0 Cells % Immature 0.030 Granulocytes # Neutrophils # 4.6 Lymphocytes # 1.0 Monocytes # 0.6 Eosinophils # 0.1 Basophils # 0.0 Nucleated Red Blood 0.0 Cells # Prothrombin Time 34.9 #H Prothrombin Time 2.7 Ratio INR International 3.47 Normalized Ratio Activated 43.3 H Partial Thromboplast Time Sodium Level 139 Potassium Level 4.7 Chloride Level 94 L Carbon Dioxide Level 31 Anion Gap 14 H Blood Urea Nitrogen 18 Creatinine 0.84 Est Glomerular > 60 Filtrat Rate mL/min Glucose Level 403 *H Calcium Level 9.1 Total Bilirubin 0.9 Direct Bilirubin 0.00 Indirect Bilirubin 0.9 Aspartate Amino 21 Transf (AST/SGOT) Alanine 15 Aminotransferase (AL T/SGPT) Alkaline Phosphatase 96 Troponin I < 0.012 Total Protein 7.6 Albumin 3.9 Globulin 3.70 H Albumin/Globulin 1.05 Ratio Lipase 156 Test 09/14/18 05:00 09/14/18 05:39 09/14/18 05:44 09/14/18 07:54 B-Type Natriuretic 4170 H Peptide Free Thyroxine 1.59 Free 4.55 Triiodothyronine (T3) pg/mL White Blood Count 6.0 Red Blood Count 4.77 Hemoglobin 12.0 Hematocrit 40.4 Mean Corpuscular 84.7 Volume Mean Corpuscular 25.2 L Hemoglobin Mean Corpuscular 29.7 L Hemoglobin Concent Red Cell 17.0 H Distribution Width Platelet Count 268 Mean Platelet Volume 10.4 Immature 0.300 Granulocytes % Neutrophils % 69.8 Lymphocytes % 15.6 Monocytes % 10.6 Eosinophils % 3.0 Basophils % 0.7 Nucleated Red Blood 0.0 Cells % Immature 0.020 Granulocytes # Neutrophils # 4.2 Lymphocytes # 0.9 Monocytes # 0.6 Eosinophils # 0.2 Basophils # 0.0 Nucleated Red Blood 0.0 Cells # Prothrombin Time 36.5 H Prothrombin Time 2.9 Ratio INR International 3.68 Normalized Ratio Sodium Level 140 Potassium Level 4.1 Chloride Level 97 Carbon Dioxide Level 30 Anion Gap 13 Blood Urea Nitrogen 20 Creatinine 0.85 Est Glomerular > 60 Filtrat Rate mL/min Glucose Level 221 #H Hemoglobin A1c Calcium Level 8.9 Magnesium Level 1.9 Total Bilirubin 0.6 Direct Bilirubin 0.00 Indirect Bilirubin 0.6 Aspartate Amino 19 Transf (AST/SGOT) Alanine 11 L Aminotransferase (AL T/SGPT) Alkaline Phosphatase 83 Total Protein 6.9 Albumin 3.5 Globulin 3.40 H Albumin/Globulin 1.02 Ratio Triglycerides Level 156 H Cholesterol Level 99 L LDL Cholesterol, 51 Calculated HDL Cholesterol 17 L Cholesterol/HDL 5.8 Ratio Thyroid Stimulating 7.920 H Hormone (TSH) Hepatitis B Surface NEGATIVE Antigen Hepatitis B Surface NEGATIVE Antibody Hepatitis B Core NEGATIVE Total Antibody Hepatitis C Antibody NEGATIVE Bedside Glucose 203 Test 09/14/18 11:58 09/14/18 14:04 Bedside Glucose 71 Creatine Kinase 35 Creatine Kinase 1.2 Index Creatinine Kinase MB 0.42 (Mass) Troponin I < 0.012 Digoxin Level 1.0 Imaging Imaging ECG atrial fibrillation at 90 bpm, QRS 168 ms, right bundle branch block, left posterior fascicular block, nonspecific ST abnormalities Medications Medications Current Medications IV Flush (NS 3 ml) 3 ml PER PROTOCOL IV ; Start 09/13/18 at 20:30 Ondansetron HCl (Zofran Inj) 4 mg Q6H PRN IV NAUSEA/VOMITING; Start 09/13/18 at 20:30 Acetaminophen (Tylenol Tab) 650 mg Q6H PRN PO .PAIN 1-3 OR TEMP Last administered on 09/14/18at 10:32; Admin Dose 650 MG; Start 09/13/18 at 20:30 Acetaminophen/ Hydrocodone Bitart ([place] (5/325)) 1 tab Q6H PRN PO .PAIN 4-6; Start 09/13/18 at 20:30 Docusate Sodium (Colace) 100 mg Q12H PRN PO .CONSTIPATION; Start 09/13/18 at 20:30 Bisacodyl (Dulcolax) 5 mg DAILY PRN PO .CONSTIPATION; Start 09/13/18 at 20:30 Loratadine (Claritin) 10 mg DAILY PO Last administered on 09/14/18 08:59; Admin Dose 10 MG; Start 09/14/18 at 09:00 Atorvastatin Calcium (Lipitor) 10 mg QHS PO Last administered on 09/13/18 23:20; Admin Dose 10 MG; Start 09/13/18 at 21:00 Diagnostic Test (Pha) (Accu-Chek) 1 ea 02 XX Last administered on 09/14/18 02:44; Admin Dose 1 EA; Start 09/14/18 at 02:00 Insulin Aspart (Novolog Insulin Pen) NOVOLOG *MILD* ALGORITHM WITH MEALS BEDTIME SC Last administered on 09/14/18 08:05; Admin Dose 2 UNIT; Start 09/13/18 at 21:00 Carvedilol (Coreg) 6.25 mg BID PO Last administered on 09/14/18 09:00; Admin Dose 6.25 MG; Start 09/14/18 at 09:00 Digoxin (Digoxin) 0.125 mg DAILY@1300 PO Last administered on 09/14/18 12:24; Admin Dose 0.125 MG; Start 09/14/18 at 13:00 Spironolactone (Aldactone) 25 mg DAILY PO Last administered on 09/14/18 10:05; Admin Dose 25 MG; Start 09/14/18 at 09:00 Furosemide (Lasix) 40 mg BID DIURETICS IV Last administered on 09/14/18 06:52; Admin Dose 40 MG; Start 09/14/18 at 06:00 Ferrous Sulfate (Ferrous Sulfate (Ec)) 325 mg DAILY PO Last administered on 09/14/18 08:59; Admin Dose 325 MG; Start 09/14/18 at 09:00 Lisinopril (Zestril) 5 mg DAILY PO Last administered on 09/14/18 09:00; Admin Dose 5 MG; Start 09/14/18 at 09:00 Insulin Glargine (Lantus) 26 units DAILY@0800 SC ; Start 09/15/18 at 08:00 Insulin Aspart (Novolog Insulin Pen) 9 unit WITH MEALS SC ; Start 09/14/18 at 18:00 Miscellaneous Information 1 ea NOTE XX ; Start 09/14/18 at 13:00 Glucose (Glutose) 15 gm Q15M PRN PO DECREASED GLUCOSE; Start 09/14/18 at 13:00 Glucose (Glutose) 22.5 gm Q15M PRN PO DECREASED GLUCOSE; Start 09/14/18 at 13:00 Dextrose (D50w Syringe) 25 ml Q15M PRN IV DECREASED GLUCOSE; Start 09/14/18 at 13:00 Dextrose (D50w Syringe) 50 ml Q15M PRN IV DECREASED GLUCOSE; Start 09/14/18 at 13:00 Glucagon (Glucagen) 1 mg Q15M PRN IM DECREASED GLUCOSE; Start 09/14/18 at 13:00 Glucose (Glutose) 15 gm Q15M PRN BUCCAL DECREASED GLUCOSE; Start 09/14/18 at 13:00 Rodger Choi DO Sep 14, 2018 17:16
[2018-09-14] MEDS ORDERED: METOLAZONE 5 MG TAB PO ONE (19:00)
--- NOTE | 2018-09-14 19:25 | CONS ---
DATE OF ADMISSION: 09/13/2018 DATE OF CONSULTATION: TYPE OF CONSULTATION: Nephrology. PHYSICIAN REQUESTING CONSULT: Rodger Choi DO REASON FOR CONSULTATION: Fluid management. HISTORY OF PRESENT ILLNESS: This is a 53-year-old female with a past medical history of severe pulmo nary hypertension, right-sided heart failure, diabetes, AFib, history of mitral valve replacement, wh o presents to [facility] Emergency Room with worsening shortness of breath, increased abdomi nal ascites. The patient states over the past several days she has had noted extreme lower extremity edema, dyspnea on exertion, abdominal swelling. The patient upon arrival to the emergency room had a chest x-ray which showed findings of moderate cardiomegaly with mild pulmonary vascular congestion. The patient had abdominal ultrasound which also showed coarse liver echogenicity suggestive of sadia y cirrhosis and moderate ascites. The patient was placed on diuretic therapy and admitted to [facility] for evaluation. In terms of patient's renal history, the patient previously had an episode of acute kidney injury fel t to be secondary to cardiorenal syndrome which has subsequently improved. The patient currently has a baseline creatinine 0.85 mg/dL. PAST MEDICAL HISTORY: As stated above, history of cardiomyopathy, history of right-sided heart failu re, history of pulmonary hypertension, history of diabetes and AFib. PAST SURGICAL HISTORY: Status post bioprosthetic valve replacement. FAMILY HISTORY: No family history of kidney disease. SOCIAL HISTORY: Does not drink, smoke or do drugs. MEDICATIONS: Have been reviewed. REVIEW OF SYSTEMS: A 14-point review of systems conducted. Pertinent positives stated in HPI, other tang negative. PHYSICAL EXAMINATION: VITAL SIGNS: Blood pressure is 113/58, respiration 18, pulse 91, temperature 97.4. HEENT: Head is normocephalic. NECK: Shows positive JVD. HEART: Tachycardic. LUNGS: Show diminished breath sounds at base. ABDOMEN: Soft, positive distention, positive ascites. EXTREMITIES: Negative for clubbing, cyanosis. Positive edema. DERMATOLOGIC: No rashes. MUSCULOSKELETAL: No joint effusions. NEUROLOGIC: No focal deficits. LABORATORY DATA: Shows a white count ____, hemoglobin 12.0, platelet count 268. BMP within normal l imits. IMAGING STUDIES: Reviewed. A 2D echo was reviewed. ASSESSMENT AND PLAN: This is a 53-year-old female who presents with: 1. Acute decompensated heart failure, right-sided failure. Underlying etiology is secondary pulmona ry hypertension. The patient is currently decompensated with lower extremity edema, positive jugular venous distention. Recommendation was to continue aggressive diuretic therapy, continue IV Lasix, A ldactone. We will give the patient metolazone to help augment diuresis. Monitor I's and O's, electr olytes and renal function closely. 2. Severe pulmonary hypertension. Underlying etiology is unclear. Continue medical management. 3. Possible cirrhosis. Etiology may be due to longstanding right-sided heart failure ____ congestio n. We will continue to monitor. I agree with checking hepatitis panel. 4. Chronic atrial fibrillation. Continue medical management. 5. History of mitral valve replacement. 6. Dyslipidemia. Continue statin therapy. 7. Ascites likely due to right-sided heart failure. Continue paracentesis. 8. Diabetes. Continue current insulin regimen, adjust as needed. 9. Dyslipidemia. Continue statin therapy. 10. Hypertension. Continue current blood pressure regimen. 11. History of acute kidney injury. The patient's renal function is currently within normal limits. Urinalysis does show proteinuria. We will quantify by checking protein-creatinine ratio and albumi n-creatinine ratio. Thank you, Dr. Choi, for this interesting consult. It will be a pleasure to follow patient with yo u throughout the hospital course. Dictated By: JANINA SOTO DO NR/NTS Conf#: [id number] DID#: [id number] CC: REBA FERREIRA MD; ELENA BOSTON MD;*End*
[2018-09-14] MEDS ORDERED: INSULIN GLARGINE [LANtus] 3 ML PEN SC SCH (20:00)
[2018-09-14] MEDS: ATORVASTATIN 10 MG TAB PO SCH (21:01)
[2018-09-14] MEDS: SPIRONOLACTONE 25 MG TAB PO SCH (21:01)
[2018-09-15] VITALS (14 sets, daily range): BP systolic 95–120; BP diastolic 53–69; PULSE 81–92; RESP 16–20
[2018-09-15] MEDS: ACCU-CHEK XX SCH (02:00)
[2018-09-15] MEDS: FUROSEMIDE 40 MG INJ IV SCH ×2 (05:43→17:27)
[2018-09-15] MEDS: INSULIN ASPART [NOVOLOG] 3 ML PEN SC SCH ×7 (08:00→20:27)
[2018-09-15] MEDS: FERROUS SULFATE (EC) 325 MG TAB PO SCH (08:11)
[2018-09-15] MEDS: SPIRONOLACTONE 25 MG TAB PO SCH ×2 (08:11→20:27)
[2018-09-15] MEDS: LORATADINE 10 MG TAB PO SCH (08:12)
[2018-09-15] MEDS: LISINOPRIL 5 MG TAB PO SCH (08:12)
[2018-09-15] MEDS: INSULIN GLARGINE [LANTus] (100 UNITS/ML) SYG SC SCH (08:22)
--- NOTE | 2018-09-15 09:49 | PN ---
DATE: 09/15/2018 SUBJECTIVE: The patient is stable, continues to have shortness of breath, mildly improved. OBJECTIVE: VITAL SIGNS: Blood pressure is 107/56, respirations 20, pulse 91, temperature 98.0. HEENT: Head is normocephalic. NECK: Supple. HEART: Regular rate. LUNGS: Show diminished breath sounds at the base. ABDOMEN: Soft, nontender to palpation without rebound or guarding. EXTREMITIES: Negative for clubbing, cyanosis. Positive edema. DERMATOLOGIC: No rashes. MUSCULOSKELETAL: No joint effusion. NEUROLOGIC: No change in exam. MEDICATIONS: Reviewed. LABORATORY DATA: Reviewed. The patient's sodium is 139, potassium 4.3, bicarbonate 33, BUN 23, crea tinine 0.94. ASSESSMENT AND PLAN: 1. Acute decompensated heart failure, right-sided. Etiology is felt to be secondary to pulmonary hy pertension. The patient is currently decompensated. We will continue current diuretic regimen. Con tinue Lasix, Aldactone. We will give the patient a course of Diamox. Monitor I's and O's and renal function closely. 2. Severe pulmonary hypertension. Etiology is unclear. Continue medical management. 3. Possible cirrhosis. Etiology may be secondary to longstanding right-sided heart failure and caus ing hepatic congestion. Continue to monitor. I agree with checking hepatitis panel. 4. Chronic atrial fibrillation. Continue medical management. 5. History of mitral valve replacement. 6. Dyslipidemia. Continue statin therapy. 7. Ascites likely due to right-sided heart failure, questionable cirrhosis. We would consider parac entesis. 8. Diabetes. Continue current insulin regimen. 9. Dyslipidemia. Continue statin therapy. 10. Hypertension. Continue current blood pressure regimen. 11. Chronic kidney disease. The patient has underlying proteinuria approximately 500 mg per gram of creatinine. We will continue current medical management. Consider LES inhibitor or ARB. Dictated By: JANINA SOTO DO NR/NTS Conf#: [id number] DID#: [id number] CC: REBA FERREIRA MD; ELENA BOSTON MD;*EndCC*
[2018-09-15] MEDS: ACETAZOLAMIDE 500 MG INJ IV SCH (11:25)
[2018-09-15] MEDS: DIGOXIN 0.125 MG TAB PO SCH (12:33)
--- NOTE | 2018-09-15 15:01 | CONS ---
Assessment/Plan Cardiology NYHA: III Heart Failure Type: Acute Heart Failure Type: Systolic Assessment/Plan Hospital Course (Demo Recall) Acute decompensated left ventricular and right ventricular systolic failure Cardia myopathy left ventricular ejection fraction 45% RV dysfunction Severe pulmonary hypertension Atrial fibrillation History of bioprosthetic mitral valve Diabetes Hypertension -Patient with evidence of significant abdominal distention, lower extremity edema and decreased breath sounds at the bases. -Echocardiogram with severe RV dysfunction and pulmonary hypertension -Diuretics being titrated as per nephrology -Continue beta-blockers heart rate and blood pressure permits, LES inhibitor as renal function and blood pressure permits. -We will likely need paracentesis Consultation Date/Type/Reason Admit Date/Time Sep 13, 2018 at 18:52 Initial Consult Date Type of Consult Cardiology Date/Time of Note DATE: 09/15/18 TIME: 14:59 24 HR Interval Summary Free Text/Dictation Shortness of breath is better, edema and abdominal ascites is better Exam/Review of Systems Vital Signs Vitals Vital Signs Date Temp Pulse Resp B/P (MAP) Pulse Ox O2 O2 Flow FiO2 Time Delivery Rate 09/15/18 91 12:00 09/15/18 97.5 20 108/68 94 Room Air 11:12 (81) Intake and Output 09/14/18 09/14/18 09/15/18 1515:00 23:00 07:00 IntakeIntake Total 1220 ml 200 ml OutputOutput Total 1400 ml BalanceBalance 1220 ml -1200 ml Exam Exam No apparent distress Constitutional: alert, oriented Head: normocephalic Respiratory: other (Coarse breath sounds bilaterally, decreased at the bases) Cardiovascular: irregular rhythm, systolic murmur Gastrointestinal: soft, non-tender, ascites, bowel sounds, distended Extremities: edema Labs Result Diagram: 09/15/18 0515 09/15/18 0515 Results 24hrs Laboratory Tests Test 09/14/18 15:57 09/14/18 17:14 09/14/18 18:10 09/14/18 21:04 Urine Color YELLOW Urine Clarity SLIGHTLY CLOUDY A Urine pH 5.0 Urine Specific 1.019 [place] Urine Ketones NEGATIVE Urine Nitrite NEGATIVE Urine Bilirubin NEGATIVE Urine NEGATIVE Urobilinogen Urine Leukocyte TRACE A Esterase Urine 3 Microscopic RBC Urine 3 Microscopic WBC Urine Squamous FEW Epithelial Cells Urine Bacteria FEW A Urine Hemoglobin 1+ H Urine Random 188.26 Creatinine Urine Random 28 L Sodium Urine Glucose NEGATIVE Urine Total 76.0 H Protein Bedside Glucose 86 86 Creatine Kinase 32 Creatine Kinase 1.4 Index Creatinine 0.44 Kinase MB (Mass) Troponin I < 0.012 Test 09/15/18 05:15 09/15/18 07:56 09/15/18 11:30 09/15/18 12:54 White Blood 5.8 Count Red Blood Count 4.90 Hemoglobin 12.3 Hematocrit 41.0 Mean Corpuscular 83.7 Volume Mean Corpuscular 25.1 L Hemoglobin Mean Corpuscular 30.0 L Hemoglobin Christianne nt Red Cell 17.1 H Distribution Width Platelet Count 280 Mean Platelet 10.3 Volume Immature 0.300 Granulocytes % Neutrophils % 63.8 Lymphocytes % 21.1 Monocytes % 10.9 Eosinophils % 2.9 Basophils % 1.0 Nucleated Red 0.0 Blood Cells % Immature 0.020 Granulocytes # Neutrophils # 3.7 Lymphocytes # 1.2 Monocytes # 0.6 Eosinophils # 0.2 Basophils # 0.1 Nucleated Red 0.0 Blood Cells # Prothrombin Time 32.2 H Prothrombin Time 2.5 Ratio INR 3.13 International Normalized Ratio Sodium Level 139 Potassium Level 4.3 Chloride Level 99 Carbon Dioxide 33 H Level Anion Gap 7 Blood Urea 23 H Nitrogen Creatinine 0.94 Est Glomerular > 60 Filtrat Rate mL/min Glucose Level 80 # Calcium Level 8.9 Phosphorus Level 4.8 Magnesium Level 1.8 Total Bilirubin 0.7 Direct Bilirubin 0.00 Indirect 0.7 Bilirubin Aspartate Amino 24 Transf (AST/SGOT ) Alanine 13 Aminotransferase (ALT/SGPT) Alkaline 82 Phosphatase Total Protein 6.7 Albumin 3.3 Globulin 3.40 H Albumin/Globulin 0.97 Ratio Bedside Glucose 85 96 Lab Scanned REFERENCE LAB Report Medications Medications Current Medications IV Flush (NS 3 ml) 3 ml PER PROTOCOL IV ; Start 09/13/18 at 20:30 Ondansetron HCl (Zofran Inj) 4 mg Q6H PRN IV NAUSEA/VOMITING; Start 09/13/18 at 20:30 Acetaminophen (Tylenol Tab) 650 mg Q6H PRN PO .PAIN 1-3 OR TEMP Last administered on 09/14/18at 10:32; Admin Dose 650 MG; Start 09/13/18 at 20:30 Acetaminophen/ Hydrocodone Bitart ([place] (5/325)) 1 tab Q6H PRN PO .PAIN 4-6; Start 09/13/18 at 20:30 Docusate Sodium (Colace) 100 mg Q12H PRN PO .CONSTIPATION; Start 09/13/18 at 20:30 Bisacodyl (Dulcolax) 5 mg DAILY PRN PO .CONSTIPATION; Start 09/13/18 at 20:30 Loratadine (Claritin) 10 mg DAILY PO Last administered on 09/15/18 08:12; Admin Dose 10 MG; Start 09/14/18 at 09:00 Atorvastatin Calcium (Lipitor) 10 mg QHS PO Last administered on 09/14/18 21:01; Admin Dose 10 MG; Start 09/13/18 at 21:00 Diagnostic Test (Pha) (Accu-Chek) 1 ea 02 XX Last administered on 09/14/18 02:44; Admin Dose 1 EA; Start 09/14/18 at 02:00 Insulin Aspart (Novolog Insulin Pen) NOVOLOG *MILD* ALGORITHM WITH MEALS BEDTIME SC Last administered on 09/14/18 08:05; Admin Dose 2 UNIT; Start 09/13/18 at 21:00 Carvedilol (Coreg) 6.25 mg BID PO Last administered on 09/15/18 08:11; Admin Dose 6.25 MG; Start 09/14/18 at 09:00 Digoxin (Digoxin) 0.125 mg DAILY@1300 PO Last administered on 09/15/18 12:33; Admin Dose 0.125 MG; Start 09/14/18 at 13:00 Furosemide (Lasix) 40 mg BID DIURETICS IV Last administered on 09/15/18 05:43; Admin Dose 40 MG; Start 09/14/18 at 06:00 Ferrous Sulfate (Ferrous Sulfate (Ec)) 325 mg DAILY PO Last administered on 09/15/18 08:11; Admin Dose 325 MG; Start 09/14/18 at 09:00 Lisinopril (Zestril) 5 mg DAILY PO Last administered on 09/15/18 08:12; Admin Dose 5 MG; Start 09/14/18 at 09:00 Insulin Glargine (Lantus) 26 units DAILY@0800 SC Last administered on 09/15/18 08:22; Admin Dose 26 UNITS; Start 09/15/18 at 08:00 Insulin Aspart (Novolog Insulin Pen) 9 unit WITH MEALS SC Last administered on 3/20/19at 12:08; Admin Dose 9 UNIT; Start 09/14/18 at 18:00 Miscellaneous Information 1 ea NOTE XX ; Start 09/14/18 at 13:00 Glucose (Glutose) 15 gm Q15M PRN PO DECREASED GLUCOSE; Start 09/14/18 at 13:00 Glucose (Glutose) 22.5 gm Q15M PRN PO DECREASED GLUCOSE; Start 09/14/18 at 13:00 Dextrose (D50w Syringe) 25 ml Q15M PRN IV DECREASED GLUCOSE; Start 09/14/18 at 13:00 Dextrose (D50w Syringe) 50 ml Q15M PRN IV DECREASED GLUCOSE; Start 09/14/18 at 13:00 Glucagon (Glucagen) 1 mg Q15M PRN IM DECREASED GLUCOSE; Start 09/14/18 at 13:00 Glucose (Glutose) 15 gm Q15M PRN BUCCAL DECREASED GLUCOSE; Start 09/14/18 at 13:00 Spironolactone (Aldactone) 25 mg BID PO Last administered on 09/15/18at 08:11; Admin Dose 25 MG; Start 09/14/18 at 21:00 Acetazolamide (Diamox) 500 mg DAILY IV Last administered on 09/15/18at 11:25; Admin Dose 500 MG; Start 09/15/18 at 09:30 Rodger Choi DO Sep 15, 2018 15:01
[2018-09-15] MEDS: ATORVASTATIN 10 MG TAB PO SCH (20:27)
[2018-09-16] VITALS (12 sets, daily range): BP systolic 94–117; BP diastolic 51–63; PULSE 69–91; RESP 16–19
[2018-09-16] MEDS: ACCU-CHEK XX SCH (02:00)
[2018-09-16] MEDS: FUROSEMIDE 40 MG INJ IV SCH ×2 (06:00→17:52)
[2018-09-16] MEDS: INSULIN ASPART [NOVOLOG] 3 ML PEN SC SCH ×5 (08:00→20:16)
[2018-09-16] MEDS: INSULIN GLARGINE [LANTus] (100 UNITS/ML) SYG SC SCH ×2 (08:00→08:42)
[2018-09-16] MEDS: ACETAZOLAMIDE 500 MG INJ IV SCH (08:27)
[2018-09-16] MEDS: FERROUS SULFATE (EC) 325 MG TAB PO SCH (08:30)
[2018-09-16] MEDS: LORATADINE 10 MG TAB PO SCH (08:30)
[2018-09-16] MEDS: LISINOPRIL 5 MG TAB PO SCH (08:31)
[2018-09-16] MEDS: SPIRONOLACTONE 25 MG TAB PO SCH ×2 (08:32→20:16)
--- NOTE | 2018-09-16 08:56 | EN ---
Date/Time of Note Date/Time of Note DATE: 09/16/18 TIME: 08:53 Event Note Medicine Medicine Event Note PROGRESS NOTE DATE OF SERVICE: 09/17/18 s: feels better, still with SOB on exertion objective : kevan Signs Date Temp Pulse Resp B/P (MAP) Pulse Ox O2 O2 Flow FiO2 Time Delivery Rate 09/15/18 91 12:00 09/15/18 97.5 20 108/68 94 Room Air 11:12 (81) Intake and Output 09/14/18 09/14/18 09/15/18 1515:00 23:00 07:00 IntakeIntake Total 1220 ml 200 ml OutputOutput Total 1400 ml BalanceBalance 1220 ml -1200 ml Constitutional: alert, oriented, no distress, obese, blank affect Head: atraumatic, normocephalic Neck: non-tender, supple Respiratory: clear to auscultation, diminished Cardiovascular: regular rate and rhythm Gastrointestinal: S/ NT / ND / +BS Extremities: lorena edema, LABS AND IMAGING: reviewed assessment and plan: 53-year-old female with a of chronic kidney disease, diabetes, hypertension, and CHF sent from O/p PMD for shortness of breath, edema and weight gain. She is currently managed as follows: 1. acute on chronic CHF exacerbation, -Echo from December 2017 did show ejection fraction of 40-45% with severe pulmonary hypertension -ongoing diuresis with BID lasix and spironolactone 2. Diffuse anasarca likely related to #3 with small to moderate ascites 3. Early Hepatic cirrhosis, cause unknown, preserved liver function, normal albumin levels -2/2 chf? -hepatitis profile negative -fatty liver ? -will put in o/p refferal to GI for further workup 4. Chronic atrial fibrillation with good rate control 5. Status post mitral valve replacement 6. Supratherapeutic INR 7. Dyslipidemia with low HDL, hypertriglyceridemia 8. Subclinical hypothyroidism -tsh unreliable in acute setting, free T4 wnl, recommend repeat when patient stable 9. Poorly controlled diabetes mellitus with hyperglycemia and noncompliance to therapy, - She will need diabetic education prior to discharge. -continue current regimen 10. Hypochromasia Dispo: continue diuresis to improve [place], transition to PO diuretics in am and then d/c if stable. ALFONZO BISHOP Sep 16, 2018 08:56
[2018-09-16] MEDS ORDERED: ACETAZOLAMIDE 500 MG INJ IV ONE (09:00)
[2018-09-16] MEDS ORDERED: INSU100C SQ (09:25)
[2018-09-16] MEDS ORDERED: LISI-313 PO (09:25)
[2018-09-16] MEDS ORDERED: INSU100I33 SC (09:25)
--- NOTE | 2018-09-16 09:31 | PN ---
DATE: 09/16/2018 SUBJECTIVE: The patient states that shortness of breath has been improving. No hemoptysis or hemate mesis. No other events overnight. The patient continues to have good urinary output. OBJECTIVE: VITAL SIGNS: Blood pressure is 99/59, respirations 17, pulse 86, temperature 97.1. HEENT: Head is normocephalic. NECK: Supple. The patient's JVD is diminished to the angle of the clavicle. HEART: Regular rate. LUNGS: Show diminished breath sounds at base. ABDOMEN: Soft, nontender to palpation without rebound or guarding. Noted fluid wave and ascites. EXTREMITIES: Negative for clubbing, cyanosis, positive edema. DERMATOLOGIC: No rashes. MUSCULOSKELETAL: No joint effusion. NEUROLOGIC: No change in exam. MEDICATIONS: Reviewed. LABORATORY DATA: Shows sodium 139, potassium 4.1, BUN 25, creatinine 1.0. White count 5.4, hemoglob in 12.0, platelet count is 277. ASSESSMENT AND PLAN: 1. Acute decompensated right-sided heart failure, believed to be secondary to pulmonary hypertension . The patient remains decompensated although slowly improving. We will continue current diuretic re gimen of Lasix, Aldactone. Will give another course of Diamox. Monitor I's and O's closely. 2. History of pulmonary hypertension. Etiology is unclear. Continue medical management. 3. Possible cirrhosis. Etiology may be secondary to longstanding right-sided heart failure causing hepatic congestion. Continue to monitor. 4. Chronic atrial fibrillation, continue medical management. 5. History of mitral valve replacement. 6. Dyslipidemia. Continue statin therapy. 7. Ascites, likely due to right-sided heart failure, questionable cirrhosis, would consider paracent esis. 8. Diabetes. Continue insulin regimen. 9. Dyslipidemia. Continue statin therapy. 10. Hypertension. Continue current blood pressure regimen. 11. Chronic kidney disease. The patient has noted proteinuria. Continue LES inhibitor. Continue m edical management. Dictated By: JANINA SOTO DO NR/NTS Conf#: [id number] DID#: [id number] CC: REBA FERREIRA MD;*EndCC*
[2018-09-16] MEDS ORDERED: WARFARIN 3 MG TAB PO SCH (11:00)
--- NOTE | 2018-09-16 11:55 | PN ---
Date/Time of Note Date/Time of Note DATE: 09/16/18 TIME: 11:42 Assessment/Plan VTE Prophylaxis Risk score (from Ns)>0 risk: 3 SCD applied (from Ns): Yes Pharmacological prophylaxis: warfarin tx (on hold ) Lines/Catheters IV Catheter Type (from Nrs): [place] Urinary Cath still in place: No Assessment/Plan Hospital Course Subjective : no new complaints, no abd pain, flat affect Objective : Constitutional: alert, oriented Head: atraumatic, normocephalic Neck: non-tender, supple Respiratory: clear to auscultation Cardiovascular: Irregularly irregular, Gastrointestinal: severe abd distention with distended sc abd veins and firmness and induration lower abd wall, non tender, mildly erythematous in Lower abd, distant Extremities: Patrick Pitting edema assessment and plan: 53-year-old female with a of chronic kidney disease, diabetes, hypertension, and CHF sent from O/p PMD for shortness of breath, edema and weight gain. She is currently managed as follows: 1. acute on chronic CHF exacerbation, -Echo from December 2017 did show ejection fraction of 40-45% with severe pulmonary hypertension -ongoing diuresis with BID lasix and spironolactone 2. Diffuse anasarca likely related to #3 with small to moderate ascites -distended abd is likely from anasarca 3. Early Hepatic cirrhosis, cause unknown, preserved liver function, normal albumin levels -2/2 chronic CHF from severe Pul HTN ? -hepatitis profile negative -will put in o/p referral to GI for further workup 4. Chronic atrial fibrillation with good rate control 5. Severe Cardiomyopathy with -R V dilation and hypokinesis -severe biatrial enlargement 6. S/p Mitral valve bioprosthesis with moderately increased transvalvular grad ient. 7. Moderate to severe tricuspid regurgitation. 8. Severe Pulmonary hypertension with estimated RVSP of 84 mmHg. 7. Dyslipidemia with low HDL, hypertriglyceridemia 8. Subclinical hypothyroidism -tsh unreliable in acute setting, free T4 wnl, recommend repeat when patient stable 9. Poorly controlled diabetes mellitus with hyperglycemia and noncompliance to therapy, - She will need diabetic education prior to discharge. -continue current regimen 10. Hypochromasia 11. Coumadin therapy Dispo: -will get CT abd to assess abd distention and see if patient will benefit from paracentesis and to assess cause of this severe distention Result Diagram: 3/21/19 0523 09/16/18 0523 Results 24hrs Laboratory Tests Test 09/15/18 12:54 09/15/18 17:24 09/15/18 20:27 09/16/18 05:23 Lab Scanned Report REFERENCE LAB Bedside Glucose 116 101 White Blood Count 5.4 Red Blood Count 4.72 Hemoglobin 12.0 Hematocrit 39.8 Mean Corpuscular 84.3 Volume Mean Corpuscular 25.4 L Hemoglobin Mean Corpuscular 30.2 L Hemoglobin Concent Red Cell 17.1 H Distribution Width Platelet Count 277 Mean Platelet 10.3 Volume Immature 0.400 Granulocytes % Neutrophils % 64.5 Lymphocytes % 18.9 Monocytes % 12.7 H Eosinophils % 2.4 Basophils % 1.1 Nucleated Red 0.0 Blood Cells % Immature 0.020 Granulocytes # Neutrophils # 3.5 Lymphocytes # 1.0 Monocytes # 0.7 Eosinophils # 0.1 Basophils # 0.1 Nucleated Red 0.0 Blood Cells # Prothrombin Time 24.2 #H Prothrombin Time 1.9 Ratio INR International 2.16 Normalized Ratio Sodium Level 139 Potassium Level 4.1 Chloride Level 98 Carbon Dioxide 34 H Level Anion Gap 7 Blood Urea 25 H Nitrogen Creatinine 1.00 Est Glomerular 58 L Filtrat Rate mL/min Glucose Level 66 #L Calcium Level 9.1 Total Bilirubin 0.8 Direct Bilirubin 0.00 Indirect Bilirubin 0.8 Aspartate Amino 27 Transf (AST/SGOT) Alanine 14 Aminotransferase ( ALT/SGPT) Alkaline 90 Phosphatase Total Protein 6.6 Albumin 3.4 Globulin 3.20 Albumin/Globulin 1.06 Ratio Test 09/16/18 07:32 09/16/18 08:23 Bedside Glucose 70 90 Exam/Review of Systems Exam Vitals Vital Signs Date Temp Pulse Resp B/P (MAP) Pulse Ox O2 O2 Flow FiO2 Time Delivery Rate 09/16/18 98.4 69 19 104/58 11:01 (73) 09/16/18 97 07:13 09/15/18 Room Air 15:34 Intake and Output 09/15/18 09/15/18 09/16/18 1515:00 23:00 07:00 IntakeIntake Total 1200 ml 300 ml OutputOutput Total 2500 ml BalanceBalance -1300 ml 300 ml Results Results 24hrs Laboratory Tests Test 09/15/18 12:54 09/15/18 17:24 09/15/18 20:27 09/16/18 05:23 Lab Scanned Report REFERENCE LAB Bedside Glucose 116 101 White Blood Count 5.4 Red Blood Count 4.72 Hemoglobin 12.0 Hematocrit 39.8 Mean Corpuscular 84.3 Volume Mean Corpuscular 25.4 L Hemoglobin Mean Corpuscular 30.2 L Hemoglobin Concent Red Cell 17.1 H Distribution Width Platelet Count 277 Mean Platelet 10.3 Volume Immature 0.400 Granulocytes % Neutrophils % 64.5 Lymphocytes % 18.9 Monocytes % 12.7 H Eosinophils % 2.4 Basophils % 1.1 Nucleated Red 0.0 Blood Cells % Immature 0.020 Granulocytes # Neutrophils # 3.5 Lymphocytes # 1.0 Monocytes # 0.7 Eosinophils # 0.1 Basophils # 0.1 Nucleated Red 0.0 Blood Cells # Prothrombin Time 24.2 #H Prothrombin Time 1.9 Ratio INR International 2.16 Normalized Ratio Sodium Level 139 Potassium Level 4.1 Chloride Level 98 Carbon Dioxide 34 H Level Anion Gap 7 Blood Urea 25 H Nitrogen Creatinine 1.00 Est Glomerular 58 L Filtrat Rate mL/min Glucose Level 66 #L Calcium Level 9.1 Total Bilirubin 0.8 Direct Bilirubin 0.00 Indirect Bilirubin 0.8 Aspartate Amino 27 Transf (AST/SGOT) Alanine 14 Aminotransferase ( ALT/SGPT) Alkaline 90 Phosphatase Total Protein 6.6 Albumin 3.4 Globulin 3.20 Albumin/Globulin 1.06 Ratio Test 09/16/18 07:32 09/16/18 08:23 Bedside Glucose 70 90 Medications Medication Current Medications IV Flush (NS 3 ml) 3 ml PER PROTOCOL IV ; Start 09/13/18 at 20:30 Ondansetron HCl (Zofran Inj) 4 mg Q6H PRN IV NAUSEA/VOMITING; Start 09/13/18 at 20:30 Acetaminophen (Tylenol Tab) 650 mg Q6H PRN PO .PAIN 1-3 OR TEMP Last adminis tered on 09/14/18at 10:32; Admin Dose 650 MG; Start 09/13/18 at 20:30 Acetaminophen/ Hydrocodone Bitart ([place] (5/325)) 1 tab Q6H PRN PO .PAIN 4-6; Start 09/13/18 at 20:30 Docusate Sodium (Colace) 100 mg Q12H PRN PO .CONSTIPATION; Start 09/13/18 at 20:30 Bisacodyl (Dulcolax) 5 mg DAILY PRN PO .CONSTIPATION; Start 09/13/18 at 20:30 Loratadine (Claritin) 10 mg DAILY PO Last administered on 09/16/18 08:30; Admin Dose 10 MG; Start 09/14/18 at 09:00 Atorvastatin Calcium (Lipitor) 10 mg QHS PO Last administered on 09/15/18 20:27; Admin Dose 10 MG; Start 09/13/18 at 21:00 Diagnostic Test (Pha) (Accu-Chek) 1 ea 02 XX Last administered on 09/14/18 02:44; Admin Dose 1 EA; Start 09/14/18 at 02:00 Insulin Aspart (Novolog Insulin Pen) NOVOLOG *MILD* ALGORITHM WITH MEALS BEDTIME SC Last administered on 09/14/18 08:05; Admin Dose 2 UNIT; Start 09/13/18 at 21:00 Carvedilol (Coreg) 6.25 mg BID PO Last administered on 09/16/18 08:33; Admin Dose 6.25 MG; Start 09/14/18 at 09:00 Digoxin (Digoxin) 0.125 mg DAILY@1300 PO Last administered on 09/15/18 12:33; Admin Dose 0.125 MG; Start 09/14/18 at 13:00 Furosemide (Lasix) 40 mg BID DIURETICS IV Last administered on 09/15/18 17:27; Admin Dose 40 MG; Start 09/14/18 at 06:00 Ferrous Sulfate (Ferrous Sulfate (Ec)) 325 mg DAILY PO Last administered on 09/16/18 08:30; Admin Dose 325 MG; Start 09/14/18 at 09:00 Insulin Glargine (Lantus) 26 units DAILY@0800 SC Last administered on 09/16/18 08:42; Admin Dose 26 UNITS; Start 09/15/18 at 08:00 Insulin Aspart (Novolog Insulin Pen) 9 unit WITH MEALS SC Last administered on 09/15/18 17:31; Admin Dose 9 UNIT; Start 09/14/18 at 18:00 Miscellaneous Information 1 ea NOTE XX ; Start 09/14/18 at 13:00 Glucose (Glutose) 15 gm Q15M PRN PO DECREASED GLUCOSE; Start 09/14/18 at 13:00 Glucose (Glutose) 22.5 gm Q15M PRN PO DECREASED GLUCOSE; Start 09/14/18 at 13:00 Dextrose (D50w Syringe) 25 ml Q15M PRN IV DECREASED GLUCOSE; Start 09/14/18 at 13:00 Dextrose (D50w Syringe) 50 ml Q15M PRN IV DECREASED GLUCOSE; Start 09/14/18 at 13:00 Glucagon (Glucagen) 1 mg Q15M PRN IM DECREASED GLUCOSE; Start 09/14/18 at 13:00 Glucose (Glutose) 15 gm Q15M PRN BUCCAL DECREASED GLUCOSE; Start 09/14/18 at 13:00 Spironolactone (Aldactone) 25 mg BID PO Last administered on 09/16/18at 08:32; Admin Dose 25 MG; Start 09/14/18 at 21:00 Acetazolamide (Diamox) 500 mg DAILY IV Last administered on 09/16/18at 08:27; Admin Dose 500 MG; Start 09/15/18 at 09:30 Lisinopril (Zestril) 2.5 mg DAILY PO ; Start 09/16/18 at 09:00 Acetazolamide (Diamox) 500 mg ONCE ONCE IV ; Start 09/16/18 at 09:00; Stop 09/16/18 at 09:01; Status ALFONZO LIMON Sep 16, 2018 11:52
--- NOTE | 2018-09-16 12:33 | CONS ---
Assessment/Plan Cardiology NYHA: III Heart Failure Type: Acute Heart Failure Type: Systolic Assessment/Plan Hospital Course (Demo Recall) Acute decompensated left ventricular and right ventricular systolic failure Cardia myopathy left ventricular ejection fraction 45% RV dysfunction Severe pulmonary hypertension Atrial fibrillation History of bioprosthetic mitral valve Diabetes Hypertension -Diuretics being titrated as per nephrology -Continue beta-blockers heart rate and blood pressure permits, LES inhibitor as renal function and blood pressure permits. -Unclear the amount of ascites, discussed with primary hospitalist, patient plan for CT of the pelvis today. Consultation Date/Type/Reason Admit Date/Time Sep 13, 2018 at 18:52 Initial Consult Date Type of Consult Cardiology Date/Time of Note DATE: 09/16/18 TIME: 12:32 24 HR Interval Summary Free Text/Dictation Shortness of breath is better. Denies chest pain or palpitations Exam/Review of Systems Vital Signs Vitals Vital Signs Date Temp Pulse Resp B/P (MAP) Pulse Ox O2 O2 Flow FiO2 Time Delivery Rate 09/16/18 98.4 69 19 104/58 11:01 (73) 09/16/18 97 07:13 09/15/18 Room Air 15:34 Intake and Output 09/15/18 09/15/18 09/16/18 1515:00 23:00 07:00 IntakeIntake Total 1200 ml 300 ml OutputOutput Total 2500 ml BalanceBalance -1300 ml 300 ml Exam Constitutional: alert, oriented (No apparent distress) Respiratory: other (Coarse breath sounds bilaterally, decreased at the bases) Cardiovascular: irregular rhythm, systolic murmur Gastrointestinal: soft, ascites, bowel sounds, distended Extremities: edema Labs Result Diagram: 09/16/18 0523 09/16/18 0523 Results 24hrs Laboratory Tests Test 09/15/18 12:54 09/15/18 17:24 09/15/18 20:27 09/16/18 05:23 Lab Scanned Report REFERENCE LAB Bedside Glucose 116 101 White Blood Count 5.4 Red Blood Count 4.72 Hemoglobin 12.0 Hematocrit 39.8 Mean Corpuscular 84.3 Volume Mean Corpuscular 25.4 L Hemoglobin Mean Corpuscular 30.2 L Hemoglobin Concent Red Cell 17.1 H Distribution Width Platelet Count 277 Mean Platelet 10.3 Volume Immature 0.400 Granulocytes % Neutrophils % 64.5 Lymphocytes % 18.9 Monocytes % 12.7 H Eosinophils % 2.4 Basophils % 1.1 Nucleated Red 0.0 Blood Cells % Immature 0.020 Granulocytes # Neutrophils # 3.5 Lymphocytes # 1.0 Monocytes # 0.7 Eosinophils # 0.1 Basophils # 0.1 Nucleated Red 0.0 Blood Cells # Prothrombin Time 24.2 #H Prothrombin Time 1.9 Ratio INR International 2.16 Normalized Ratio Sodium Level 139 Potassium Level 4.1 Chloride Level 98 Carbon Dioxide 34 H Level Anion Gap 7 Blood Urea 25 H Nitrogen Creatinine 1.00 Est Glomerular 58 L Filtrat Rate mL/min Glucose Level 66 #L Calcium Level 9.1 Total Bilirubin 0.8 Direct Bilirubin 0.00 Indirect Bilirubin 0.8 Aspartate Amino 27 Transf (AST/SGOT) Alanine 14 Aminotransferase ( ALT/SGPT) Alkaline 90 Phosphatase Total Protein 6.6 Albumin 3.4 Globulin 3.20 Albumin/Globulin 1.06 Ratio Test 09/16/18 07:32 09/16/18 08:23 09/16/18 11:42 Bedside Glucose 70 90 109 Medications Medications Current Medications IV Flush (NS 3 ml) 3 ml PER PROTOCOL IV ; Start 09/13/18 at 20:30 Ondansetron HCl (Zofran Inj) 4 mg Q6H PRN IV NAUSEA/VOMITING; Start 09/13/18 at 20:30 Acetaminophen (Tylenol Tab) 650 mg Q6H PRN PO .PAIN 1-3 OR TEMP Last a dministered on 09/14/18at 10:32; Admin Dose 650 MG; Start 09/13/18 at 20:30 Acetaminophen/ Hydrocodone Bitart ([place] (5/325)) 1 tab Q6H PRN PO .PAIN 4-6; Start 09/13/18 at 20:30 Docusate Sodium (Colace) 100 mg Q12H PRN PO .CONSTIPATION; Start 09/13/18 at 20:30 Bisacodyl (Dulcolax) 5 mg DAILY PRN PO .CONSTIPATION; Start 09/13/18 at 20:30 Loratadine (Claritin) 10 mg DAILY PO Last administered on 09/16/18at 08:30; Admin Dose 10 MG; Start 09/14/18 at 09:00 Atorvastatin Calcium (Lipitor) 10 mg QHS PO Last administered on 09/15/18at 20:27; Admin Dose 10 MG; Start 09/13/18 at 21:00 Diagnostic Test (Pha) (Accu-Chek) 1 ea 02 XX Last administered on 09/14/18at 02:44; Admin Dose 1 EA; Start 09/14/18 at 02:00 Insulin Aspart (Novolog Insulin Pen) NOVOLOG *MILD* ALGORITHM WITH MEALS BEDTIME SC Last administered on 09/14/18 08:05; Admin Dose 2 UNIT; Start 09/13/18 at 21:00 Carvedilol (Coreg) 6.25 mg BID PO Last administered on 09/16/18 08:33; Admin Dose 6.25 MG; Start 09/14/18 at 09:00 Digoxin (Digoxin) 0.125 mg DAILY@1300 PO Last administered on 09/15/18 12:33; Admin Dose 0.125 MG; Start 09/14/18 at 13:00 Furosemide (Lasix) 40 mg BID DIURETICS IV Last administered on 09/15/18 17:27; Admin Dose 40 MG; Start 09/14/18 at 06:00 Ferrous Sulfate (Ferrous Sulfate (Ec)) 325 mg DAILY PO Last administered on 09/16/18 08:30; Admin Dose 325 MG; Start 09/14/18 at 09:00 Miscellaneous Information 1 ea NOTE XX ; Start 09/14/18 at 13:00 Glucose (Glutose) 15 gm Q15M PRN PO DECREASED GLUCOSE; Start 09/14/18 at 13:00 Glucose (Glutose) 22.5 gm Q15M PRN PO DECREASED GLUCOSE; Start 09/14/18 at 13:00 Dextrose (D50w Syringe) 25 ml Q15M PRN IV DECREASED GLUCOSE; Start 09/14/18 at 13:00 Dextrose (D50w Syringe) 50 ml Q15M PRN IV DECREASED GLUCOSE; Start 09/14/18 at 13:00 Glucagon (Glucagen) 1 mg Q15M PRN IM DECREASED GLUCOSE; Start 09/14/18 at 13:00 Glucose (Glutose) 15 gm Q15M PRN BUCCAL DECREASED GLUCOSE; Start 09/14/18 at 13:00 Spironolactone (Aldactone) 25 mg BID PO Last administered on 09/16/18 08:32; Admin Dose 25 MG; Start 09/14/18 at 21:00 Acetazolamide (Diamox) 500 mg DAILY IV Last administered on 3/21/19at 08:27; Admin Dose 500 MG; Start 09/15/18 at 09:30 Lisinopril (Zestril) 2.5 mg DAILY PO ; Start 09/16/18 at 09:00 Acetazolamide (Diamox) 500 mg ONCE ONCE IV ; Start 09/16/18 at 09:00; Stop 09/16/18 at 09:01; Status UNV Barium Sulfate (Readi-Cat 2 ( [employer] )) 900 ml GIVE PRIOR TO CT ONCE PO ; Start 09/16/18 at 14:00; Stop 09/16/18 at 14:01 Rodger Choi DO Sep 16, 2018 12:33
[2018-09-16] MEDS: DIGOXIN 0.125 MG TAB PO SCH (13:12)
[2018-09-16] MEDS ORDERED: BARIUM SULF 2% 450 ML BTL (BERRY SMOOTHIE) PO ONE (14:00)
[2018-09-16] MEDS: ATORVASTATIN 10 MG TAB PO SCH (20:16)
[2018-09-17] VITALS (16 sets, daily range): BP systolic 92–106; BP diastolic 50–62; PULSE 82–85; RESP 16–18
[2018-09-17] MEDS: ACCU-CHEK XX SCH (02:00)
[2018-09-17] MEDS: FUROSEMIDE 40 MG INJ IV SCH ×2 (05:45→17:32)
[2018-09-17] MEDS: INSULIN ASPART [NOVOLOG] 3 ML PEN SC SCH ×4 (07:45→20:18)
[2018-09-17] MEDS: ACETAZOLAMIDE 500 MG INJ IV SCH (08:29)
[2018-09-17] MEDS: FERROUS SULFATE (EC) 325 MG TAB PO SCH (08:29)
[2018-09-17] MEDS: SPIRONOLACTONE 25 MG TAB PO SCH ×2 (08:30→20:11)
[2018-09-17] MEDS: LORATADINE 10 MG TAB PO SCH (08:30)
[2018-09-17] MEDS: LISINOPRIL 5 MG TAB PO SCH (08:31)
--- NOTE | 2018-09-17 09:16 | PN ---
DATE: 09/17/2018 SUBJECTIVE: The patient is stable, no events overnight. OBJECTIVE: VITAL SIGNS: Blood pressure is 106/56, respirations 18, pulse 85, temperature 98.2. HEENT: Head is normocephalic. NECK: Supple. HEART: Regular rate. LUNGS: Show diminished breath sounds at the base. ABDOMEN: Soft, nontender to palpation without rebound or guarding. EXTREMITIES: Negative for clubbing, cyanosis, no edema. DERMATOLOGIC: No rashes. MUSCULOSKELETAL: No joint effusion. NEUROLOGIC: No change in exam. MEDICATIONS: Reviewed. LABORATORY DATA: Reviewed. The patient's CT scan shows irregular surface of the contour suggestive of cirrhosis, moderate large volume ascites with splenomegaly, no evidence of bowel obstruction. Lab oratory data 09/17/2018 shows a sodium 138, BUN 26, creatinine 1.05. ASSESSMENT AND PLAN: 1. Acute decompensated right-sided heart failure believed to be secondary to pulmonary hypertension. The patient is clinically improving. Continue to monitor. Continue current diuretic regimen of La six, Aldactone and Diamox intermittently. Monitor I's and O's closely. 2. Pulmonary hypertension, underlying etiology is unclear. Continue medical management. We will fo llow up with Cardiology for recommendations. 3. Cirrhosis with ascites. Etiology of cirrhosis may be secondary to longstanding right-sided heart failure, and hepatic congestion. May consider paracentesis. Continue to monitor. 4. Chronic atrial fibrillation. Continue medical management. 5. History of valve replacement. 6. Dyslipidemia. Continue statin therapy. 7. Ascites secondary to cirrhosis and right sided heart failure as stated above. We would consider paracentesis. 8. Diabetes. Continue current insulin regimen. 9. Dyslipidemia. Continue statin therapy. 10. Hypertension. Continue current blood pressure regimen. 11. Acute kidney injury. Etiology is secondary to hemodynamics. Monitor closely on current diureti c regimen. Continue LES inhibitor. Dictated By: JANINA SOTO DO NR/NTS Conf#: [id number] DID#: [id number] CC: ELENA BOSTON MD; REBA FERREIRA MD;*EndCC*
[2018-09-17] MEDS ORDERED: SOD CHLORIDE 0.9% 250 ML IV* ONE (09:58)
[2018-09-17] MEDS ORDERED: LIDOCAINE 1% (MPF) 5 ML VIAL ONE (12:21)
--- NOTE | 2018-09-17 12:21 | PN ---
Date/Time of Note Date/Time of Note DATE: 09/17/18 TIME: 12:02 Assessment/Plan VTE Prophylaxis Risk score (from Nsg)>0 risk: 3 Pharmacological prophylaxis: NA/contraindicated Pharm contraindication: blood coag disorder Lines/Catheters IV Catheter Type (from Nrsg): Saline Lock Urinary Cath still in place: No Assessment/Plan Hospital Course 1. Diffuse anasarca secondary to cirrhosis and CHF Echo shows an EF of 45% Ultrasound of the abdomen shows cirrhosis with ascites Continue Diamox, Lasix and Aldactone as tolerated Paracentesis once coagulopathy reversed 2. Cirrhosis secondary to cardiac hepatopathy from moderate to severe TR and right-sided heart failure on likely FRIEDMAN Hepatitis panel is negative Check ammonia level in a.m. Continue diuresis Paracentesis Outpatient GI follow-up 3. Status post mitral valve bioprosthesis Hold Coumadin in anticipation of paracentesis Resume after paracentesis has been done Of note patient likely has an underlying coagulopathy secondary to cirrhosis 4. Chronic atrial fibrillation with good rate control 5. Severe Pulmonary hypertension with estimated RVSP of 84 mmHg 6. Poorly controlled diabetes mellitus with hyperglycemia and noncompliance to therapy, Continue sliding scale 7. Dyslipidemia with low HDL, hypertriglyceridemia 8. Subclinical hypothyroidism TSH unreliable in acute setting, free T4 wnl, recommend repeat when patient stable Prophylaxis: SCDs DC planning: Paracentesis once coagulopathy reversed, anticipate DC home in 1-2 days Result Diagram: 09/17/18 0530 09/17/18 0530 Results 24hrs Laboratory Tests Test 09/16/18 17:50 09/16/18 20:14 09/17/18 05:30 09/17/18 07:26 Bedside Glucose 159 127 133 White Blood Count 4.9 Red Blood Count 4.61 Hemoglobin 11.7 L Hematocrit 38.8 Mean Corpuscular 84.2 Volume Mean Corpuscular 25.4 L Hemoglobin Mean Corpuscular 30.2 L Hemoglobin Concent Red Cell 17.3 H Distribution Width Platelet Count 286 Mean Platelet Volume 10.5 H Immature 0.400 Granulocytes % Neutrophils % 64.4 Lymphocytes % 18.4 Monocytes % 12.1 H Eosinophils % 3.5 Basophils % 1.2 Nucleated Red Blood 0.0 Cells % Immature 0.020 Granulocytes # Neutrophils # 3.1 Lymphocytes # 0.9 Monocytes # 0.6 Eosinophils # 0.2 Basophils # 0.1 Nucleated Red Blood 0.0 Cells # Prothrombin Time 22.1 H Prothrombin Time 1.7 Ratio INR International 1.93 Normalized Ratio Sodium Level 138 Potassium Level 4.1 Chloride Level 95 L Carbon Dioxide Level 31 Anion Gap 12 Blood Urea Nitrogen 26 H Creatinine 1.04 H Est Glomerular 55 L Filtrat Rate mL/min Glucose Level 148 # Calcium Level 9.1 Total Bilirubin 0.7 Direct Bilirubin 0.00 Indirect Bilirubin 0.7 Aspartate Amino 25 Transf (AST/SGOT) Alanine 16 Aminotransferase (AL T/SGPT) Alkaline Phosphatase 101 Total Protein 7.1 Albumin 3.6 Globulin 3.50 H Albumin/Globulin 1.02 Ratio Test 09/17/18 11:23 Bedside Glucose 194 Subjective 24 Hr Interval Summary Gastrointestinal: pain Exam/Review of Systems Exam Vitals Vital Signs Date Temp Pulse Resp B/P (MAP) Pulse Ox O2 O2 Flow FiO2 Time Delivery Rate 09/17/18 98.2 84 18 94/50 (65) 96 11:01 09/15/18 Room Air 15:34 Intake and Output 09/16/18 09/16/18 09/17/18 1414:59 22:59 06:59 IntakeIntake Total 600 ml 300 ml OutputOutput Total 1550 ml 1000 ml BalanceBalance -950 ml -700 ml Constitutional: alert, oriented Respiratory: clear to auscultation Cardiovascular: regular rate and rhythm Musculoskeletal: nl extremities to inspection Extremities: edema Results Results 24hrs Laboratory Tests Test 09/16/18 17:50 09/16/18 20:14 09/17/18 05:30 09/17/18 07:26 Bedside Glucose 159 127 133 White Blood Count 4.9 Red Blood Count 4.61 Hemoglobin 11.7 L Hematocrit 38.8 Mean Corpuscular 84.2 Volume Mean Corpuscular 25.4 L Hemoglobin Mean Corpuscular 30.2 L Hemoglobin Concent Red Cell 17.3 H Distribution Width Platelet Count 286 Mean Platelet Volume 10.5 H Immature 0.400 Granulocytes % Neutrophils % 64.4 Lymphocytes % 18.4 Monocytes % 12.1 H Eosinophils % 3.5 Basophils % 1.2 Nucleated Red Blood 0.0 Cells % Immature 0.020 Granulocytes # Neutrophils # 3.1 Lymphocytes # 0.9 Monocytes # 0.6 Eosinophils # 0.2 Basophils # 0.1 Nucleated Red Blood 0.0 Cells # Prothrombin Time 22.1 H Prothrombin Time 1.7 Ratio INR International 1.93 Normalized Ratio Sodium Level 138 Potassium Level 4.1 Chloride Level 95 L Carbon Dioxide Level 31 Anion Gap 12 Blood Urea Nitrogen 26 H Creatinine 1.04 H Est Glomerular 55 L Filtrat Rate mL/min Glucose Level 148 # Calcium Level 9.1 Total Bilirubin 0.7 Direct Bilirubin 0.00 Indirect Bilirubin 0.7 Aspartate Amino 25 Transf (AST/SGOT) Alanine 16 Aminotransferase (AL T/SGPT) Alkaline Phosphatase 101 Total Protein 7.1 Albumin 3.6 Globulin 3.50 H Albumin/Globulin 1.02 Ratio Test 09/17/18 11:23 Bedside Glucose 194 Medications Medication Current Medications IV Flush (NS 3 ml) 3 ml PER PROTOCOL IV ; Start 09/13/18 at 20:30 Ondansetron HCl (Zofran Inj) 4 mg Q6H PRN IV NAUSEA/VOMITING; Start 09/13/18 at 20:30 Acetaminophen (Tylenol Tab) 650 mg Q6H PRN PO .PAIN 1-3 OR TEMP Last administered on 09/14/18at 10:32; Admin Dose 650 MG; Start 09/13/18 at 20:30 Acetaminophen/ Hydrocodone Bitart ([place] (5/325)) 1 tab Q6H PRN PO .PAIN 4-6 Last administered on 09/17/18 09:49; Admin Dose 1 TAB; Start 09/13/18 at 20:30 Docusate Sodium (Colace) 100 mg Q12H PRN PO .CONSTIPATION; Start 09/13/18 at 20:30 Bisacodyl (Dulcolax) 5 mg DAILY PRN PO .CONSTIPATION; Start 09/13/18 at 20:30 Loratadine (Claritin) 10 mg DAILY PO Last administered on 09/17/18 08:30; Admin Dose 10 MG; Start 09/14/18 at 09:00 Atorvastatin Calcium (Lipitor) 10 mg QHS PO Last administered on 09/16/18 20:16; Admin Dose 10 MG; Start 09/13/18 at 21:00 Diagnostic Test (Pha) (Accu-Chek) 1 ea 02 XX Last administered on 09/14/18 02:44; Admin Dose 1 EA; Start 09/14/18 at 02:00 Insulin Aspart (Novolog Insulin Pen) NOVOLOG *MILD* ALGORITHM WITH MEALS BEDTIME SC Last administered on 09/16/18 17:56; Admin Dose 1 UNIT; Start 09/13/18 at 21:00 Carvedilol (Coreg) 6.25 mg BID PO Last administered on 09/17/18 08:30; Admin Dose 6.25 MG; Start 09/14/18 at 09:00 Digoxin (Digoxin) 0.125 mg DAILY@1300 PO Last administered on 09/16/18 13:12; Admin Dose 0.125 MG; Start 09/14/18 at 13:00 Furosemide (Lasix) 40 mg BID DIURETICS IV Last administered on 09/17/18 05:45; Admin Dose 40 MG; Start 09/14/18 at 06:00 Ferrous Sulfate (Ferrous Sulfate (Ec)) 325 mg DAILY PO Last administered on 09/17/18 08:29; Admin Dose 325 MG; Start 09/14/18 at 09:00 Miscellaneous Information 1 ea NOTE XX ; Start 09/14/18 at 13:00 Glucose (Glutose) 15 gm Q15M PRN PO DECREASED GLUCOSE; Start 09/14/18 at 13:00 Glucose (Glutose) 22.5 gm Q15M PRN PO DECREASED GLUCOSE; Start 09/14/18 at 13:00 Dextrose (D50w Syringe) 25 ml Q15M PRN IV DECREASED GLUCOSE; Start 09/14/18 at 13:00 Dextrose (D50w Syringe) 50 ml Q15M PRN IV DECREASED GLUCOSE; Start 09/14/18 at 13:00 Glucagon (Glucagen) 1 mg Q15M PRN IM DECREASED GLUCOSE; Start 09/14/18 at 13:00 Glucose (Glutose) 15 gm Q15M PRN BUCCAL DECREASED GLUCOSE; Start 09/14/18 at 13:00 Spironolactone (Aldactone) 25 mg BID PO Last administered on 09/17/18 08:30; Admin Dose 25 MG; Start 09/14/18 at 21:00 Acetazolamide (Diamox) 500 mg DAILY IV Last administered on 09/17/18 08:29; Admin Dose 500 MG; Start 09/15/18 at 09:30 Lisinopril (Zestril) 2.5 mg DAILY PO Last administered on 09/17/18 08:31; Admin Dose 2.5 MG; Start 09/16/18 at 09:00 SUZETTE FUENTES 22, 2019 12:13
[2018-09-17] MEDS: DIGOXIN 0.125 MG TAB PO SCH (13:42)
--- NOTE | 2018-09-17 13:55 | CONS ---
Assessment/Plan Cardiology NYHA: III Heart Failure Type: Acute Heart Failure Type: Systolic Assessment/Plan Assessment/Plan (Daily) Assessment Acute decompensated left ventricular and right ventricular systolic failure Cardia myopathy left ventricular ejection fraction 45% RV dysfunction Severe pulmonary hypertension Atrial fibrillation History of bioprosthetic mitral valve Diabetes Hypertension Plan: ascites likely in context of portal hypertension no changes in cardiac meds Consultation Date/Type/Reason Admit Date/Time Sep 13, 2018 at 18:52 Initial Consult Date Type of Consult Cardiology Date/Time of Note DATE: 09/17/18 TIME: 13:53 Detailed Summary Respiratory: no complaints Cardiovascular: no complaints Gastrointestinal: no complaints Musculoskeletal: no complaints Skin: no complaints Neurologic: no complaints Exam/Review of Systems Vital Signs Vitals Vital Signs Date Temp Pulse Resp B/P (MAP) Pulse Ox O2 O2 Flow FiO2 Time Delivery Rate 09/17/18 Nasal 4.0 13:48 Cannula 09/17/18 97.6 85 18 93/52 (66) 96 13:31 Intake and Output 09/16/18 09/16/18 09/17/18 1414:59 22:59 06:59 IntakeIntake Total 600 ml 300 ml OutputOutput Total 1550 ml 1000 ml BalanceBalance -950 ml -700 ml Exam Constitutional: alert, oriented Head: normocephalic, atraumatic Neck: jvd Respiratory: clear to auscultation Cardiovascular: irregular rhythm Gastrointestinal: soft Musculoskeletal: nl extremities to inspection Labs Result Diagram: 09/17/18 0530 09/17/18 0530 Results 24hrs Laboratory Tests Test 09/16/18 17:50 09/16/18 20:14 09/17/18 05:30 09/17/18 07:26 Bedside Glucose 159 127 133 White Blood Count 4.9 Red Blood Count 4.61 Hemoglobin 11.7 L Hematocrit 38.8 Mean Corpuscular 84.2 Volume Mean Corpuscular 25.4 L Hemoglobin Mean Corpuscular 30.2 L Hemoglobin Concent Red Cell 17.3 H Distribution Width Platelet Count 286 Mean Platelet Volume 10.5 H Immature 0.400 Granulocytes % Neutrophils % 64.4 Lymphocytes % 18.4 Monocytes % 12.1 H Eosinophils % 3.5 Basophils % 1.2 Nucleated Red Blood 0.0 Cells % Immature 0.020 Granulocytes # Neutrophils # 3.1 Lymphocytes # 0.9 Monocytes # 0.6 Eosinophils # 0.2 Basophils # 0.1 Nucleated Red Blood 0.0 Cells # Prothrombin Time 22.1 H Prothrombin Time 1.7 Ratio INR International 1.93 Normalized Ratio Sodium Level 138 Potassium Level 4.1 Chloride Level 95 L Carbon Dioxide Level 31 Anion Gap 12 Blood Urea Nitrogen 26 H Creatinine 1.04 H Est Glomerular 55 L Filtrat Rate mL/min Glucose Level 148 # Calcium Level 9.1 Total Bilirubin 0.7 Direct Bilirubin 0.00 Indirect Bilirubin 0.7 Aspartate Amino 25 Transf (AST/SGOT) Alanine 16 Aminotransferase (AL T/SGPT) Alkaline Phosphatase 101 Total Protein 7.1 Albumin 3.6 Globulin 3.50 H Albumin/Globulin 1.02 Ratio Test 09/17/18 11:23 09/17/18 12:49 Bedside Glucose 194 201 Medications Medications Current Medications IV Flush (NS 3 ml) 3 ml PER PROTOCOL IV ; Start 09/13/18 at 20:30 Ondansetron HCl (Zofran Inj) 4 mg Q6H PRN IV NAUSEA/VOMITING; Start 09/13/18 at 20:30 Acetaminophen (Tylenol Tab) 650 mg Q6H PRN PO .PAIN 1-3 OR TEMP Last administered on 09/14/18 10:32; Admin Dose 650 MG; Start 09/13/18 at 20:30 Acetaminophen/ Hydrocodone Bitart ([place] (5/325)) 1 tab Q6H PRN PO .PAIN 4-6 Last administered on 09/17/18 09:49; Admin Dose 1 TAB; Start 09/13/18 at 20:30 Docusate Sodium (Colace) 100 mg Q12H PRN PO .CONSTIPATION; Start 09/13/18 at 20:30 Bisacodyl (Dulcolax) 5 mg DAILY PRN PO .CONSTIPATION; Start 09/13/18 at 20:30 Loratadine (Claritin) 10 mg DAILY PO Last administered on 09/17/18 08:30; Admin Dose 10 MG; Start 09/14/18 at 09:00 Atorvastatin Calcium (Lipitor) 10 mg QHS PO Last administered on 09/16/18 20:16; Admin Dose 10 MG; Start 09/13/18 at 21:00 Diagnostic Test (Pha) (Accu-Chek) 1 ea 02 XX Last administered on 09/14/18at 02:44; Admin Dose 1 EA; Start 09/14/18 at 02:00 Insulin Aspart (Novolog Insulin Pen) NOVOLOG *MILD* ALGORITHM WITH MEALS BEDTIME SC Last administered on 09/17/18 13:01; Admin Dose 2 UNIT; Start 09/13/18 at 21:00 Carvedilol (Coreg) 6.25 mg BID PO Last administered on 09/17/18 08:30; Admin Dose 6.25 MG; Start 09/14/18 at 09:00 Digoxin (Digoxin) 0.125 mg DAILY@1300 PO Last administered on 09/17/18 13:42; Admin Dose 0.125 MG; Start 09/14/18 at 13:00 Furosemide (Lasix) 40 mg BID DIURETICS IV Last administered on 09/17/18 05:45; Admin Dose 40 MG; Start 09/14/18 at 06:00 Ferrous Sulfate (Ferrous Sulfate (Ec)) 325 mg DAILY PO Last administered on 09/17/18 08:29; Admin Dose 325 MG; Start 09/14/18 at 09:00 Miscellaneous Information 1 ea NOTE XX ; Start 09/14/18 at 13:00 Glucose (Glutose) 15 gm Q15M PRN PO DECREASED GLUCOSE; Start 09/14/18 at 13:00 Glucose (Glutose) 22.5 gm Q15M PRN PO DECREASED GLUCOSE; Start 09/14/18 at 13:00 Dextrose (D50w Syringe) 25 ml Q15M PRN IV DECREASED GLUCOSE; Start 09/14/18 at 13:00 Dextrose (D50w Syringe) 50 ml Q15M PRN IV DECREASED GLUCOSE; Start 09/14/18 at 13:00 Glucagon (Glucagen) 1 mg Q15M PRN IM DECREASED GLUCOSE; Start 09/14/18 at 13:00 Glucose (Glutose) 15 gm Q15M PRN BUCCAL DECREASED GLUCOSE; Start 09/14/18 at 13:00 Spironolactone (Aldactone) 25 mg BID PO Last administered on 09/17/18 08:30; Admin Dose 25 MG; Start 09/14/18 at 21:00 Acetazolamide (Diamox) 500 mg DAILY IV Last administered on 09/17/18 08:29; Admin Dose 500 MG; Start 09/15/18 at 09:30 Lisinopril (Zestril) 2.5 mg DAILY PO Last administered on 3/22/19at 08:31; Admin Dose 2.5 MG; Start 09/16/18 at 09:00 BEVERLEY POWER MD Sep 17, 2018 13:55
[2018-09-17] MEDS: ATORVASTATIN 10 MG TAB PO SCH (20:09)
[2018-09-18] VITALS (12 sets, daily range): BP systolic 90–113; BP diastolic 50–57; PULSE 69–85; RESP 16–19
[2018-09-18] MEDS: ACCU-CHEK XX SCH (02:23)
[2018-09-18] MEDS: FUROSEMIDE 40 MG INJ IV SCH ×2 (06:58→17:15)
[2018-09-18] MEDS: LORATADINE 10 MG TAB PO SCH (08:59)
[2018-09-18] MEDS: SPIRONOLACTONE 25 MG TAB PO SCH ×2 (08:59→20:08)
[2018-09-18] MEDS: FERROUS SULFATE (EC) 325 MG TAB PO SCH (08:59)
[2018-09-18] MEDS: LISINOPRIL 5 MG TAB PO SCH (09:00)
[2018-09-18] MEDS: INSULIN ASPART [NOVOLOG] 3 ML PEN SC SCH ×4 (09:14→20:15)
--- NOTE | 2018-09-18 09:42 | PN ---
DATE: 09/18/2018 SUBJECTIVE: The patient is stable. No events overnight. OBJECTIVE: VITAL SIGNS: Blood pressure is 103/56, pulse 82, respiration 18, temperature 98.3. HEENT: Head is normocephalic. NECK: Supple. HEART: Regular rate. LUNGS: Show diminished breath sounds at the base. ABDOMEN: Soft, nontender to palpation without rebound or guarding. EXTREMITIES: Negative for clubbing, cyanosis. Positive edema. DERMATOLOGIC: No rashes. MUSCULOSKELETAL: No joint effusion. NEUROLOGIC: No change in exam. MEDICATIONS: Reviewed. LABORATORY DATA: Shows sodium 138, potassium 4.4, BUN 28, creatinine 1.09. Patient's CBC was review ed. I's and O's were reviewed. ASSESSMENT AND PLAN: 1. Acute decompensated right-sided heart failure, believed to be secondary to pulmonary hypertension . Patient has been clinically improving. Continue current diuretic regimen of Lasix, Aldactone. Wi ll hold Diamox at this time due to worsening renal function. Monitor I's and O's closely. 2. Pulmonary hypertension. Etiology is unclear. Continue medical management. Follow up with cardi ology. 3. Cirrhosis with ascites. Etiology is likely due to longstanding right-sided heart failure with he patic congestion. The patient is pending paracentesis. 4. Chronic atrial fibrillation. Continue medical management. 5. History of valve replacement. 6. Dyslipidemia. Continue statin therapy. 7. Nonoliguric acute kidney injury. Etiology is due to hemodynamics from diuretic therapy. We will hold Diamox. Continue Lasix, Aldactone at this time. 8. Diabetes. Continue current insulin regimen. 9. Dyslipidemia. Continue statin therapy. 10. Hypotension. Monitor blood pressure closely on diuretic therapy. Dictated By: JANIAN SOTO DO NR/NTS Conf#: [id number] DID#: [id number] CC: REBA FERREIRA MD;*End*
--- NOTE | 2018-09-18 11:33 | CONS ---
Assessment/Plan Cardiology NYHA: III Heart Failure Type: Acute Heart Failure Type: Systolic Assessment/Plan Assessment/Plan (Daily) Assessment Acute decompensated left ventricular and right ventricular systolic failure Cardia myopathy left ventricular ejection fraction 45% RV dysfunction Severe pulmonary hypertension Atrial fibrillation History of bioprosthetic mitral valve Diabetes Portal Hypertension Plan: pulmonary HTN disproportionate to LV function portal HTN Diuresis Consultation Date/Type/Reason Admit Date/Time Sep 13, 2018 at 18:52 Initial Consult Date Type of Consult Cardiology Date/Time of Note DATE: 09/18/18 TIME: 11:31 24 HR Interval Summary Free Text/Dictation no chest pain, no sob when sitting up Detailed Summary Respiratory: no complaints Cardiovascular: no complaints Musculoskeletal: no complaints Skin: no complaints Neurologic: no complaints Exam/Review of Systems Vital Signs Vitals Vital Signs Date Temp Pulse Resp B/P (MAP) Pulse Ox O2 O2 Flow FiO2 Time Delivery Rate 09/18/18 98.3 73 19 113/55 91 11:00 (74) 09/17/18 Room Air 17:32 09/17/18 3.0 14:29 Intake and Output 09/17/18 09/17/18 09/18/18 1515:00 23:00 07:00 IntakeIntake Total 920 ml OutputOutput Total 5000 ml 1200 ml BalanceBalance -5000 ml -280 ml Exam Head: normocephalic, atraumatic Neck: jvd Respiratory: clear to auscultation Cardiovascular: regular rate and rhythm Extremities: edema Labs Result Diagram: 09/18/18 0536 09/18/18 0536 Results 24hrs Laboratory Tests Test 09/17/18 12:49 09/17/18 17:38 09/17/18 20:08 09/18/18 02:21 Bedside Glucose 201 211 237 H 216 Test 09/18/18 05:36 09/18/18 08:57 White Blood Count 4.8 Red Blood Count 4.75 Hemoglobin 12.1 Hematocrit 40.1 Mean Corpuscular 84.4 Volume Mean Corpuscular 25.5 L Hemoglobin Mean Corpuscular 30.2 L Hemoglobin Concent Red Cell 17.2 H Distribution Width Platelet Count 273 Mean Platelet Volume 10.7 H Immature 0.400 Granulocytes % Neutrophils % 63.3 Lymphocytes % 22.1 Monocytes % 10.3 Eosinophils % 2.9 Basophils % 1.0 Nucleated Red Blood 0.0 Cells % Immature 0.020 Granulocytes # Neutrophils # 3.1 Lymphocytes # 1.1 Monocytes # 0.5 Eosinophils # 0.1 Basophils # 0.1 Nucleated Red Blood 0.0 Cells # Prothrombin Time 19.9 H Prothrombin Time 1.6 Ratio INR International 1.68 Normalized Ratio Sodium Level 138 Potassium Level 4.4 Chloride Level 96 L Carbon Dioxide Level 31 Anion Gap 11 Blood Urea Nitrogen 28 H Creatinine 1.09 H Est Glomerular 53 L Filtrat Rate mL/min Glucose Level 211 Calcium Level 9.3 Phosphorus Level 4.4 Magnesium Level 2.0 Total Bilirubin 0.9 Direct Bilirubin 0.00 Indirect Bilirubin 0.9 Aspartate Amino 23 Transf (AST/SGOT) Alanine 17 Aminotransferase (AL T/SGPT) Alkaline Phosphatase 104 Ammonia < 9 L Total Protein 6.7 Albumin 3.6 Globulin 3.10 Albumin/Globulin 1.16 Ratio Bedside Glucose 231 H Medications Medications Current Medications IV Flush (NS 3 ml) 3 ml PER PROTOCOL IV ; Start 09/13/18 at 20:30 Ondansetron HCl (Zofran Inj) 4 mg Q6H PRN IV NAUSEA/VOMITING; Start 09/13/18 at 20:30 Acetaminophen (Tylenol Tab) 650 mg Q6H PRN PO .PAIN 1-3 OR TEMP Last administered on 09/14/18at 10:32; Admin Dose 650 MG; Start 09/13/18 at 20:30 Acetaminophen/ Hydrocodone Bitart ([place] (5/325)) 1 tab Q6H PRN PO .PAIN 4-6 Last administered on 09/17/18 09:49; Admin Dose 1 TAB; Start 09/13/18 at 20:30 Docusate Sodium (Colace) 100 mg Q12H PRN PO .CONSTIPATION; Start 09/13/18 at 20:30 Bisacodyl (Dulcolax) 5 mg DAILY PRN PO .CONSTIPATION; Start 09/13/18 at 20:30 Loratadine (Claritin) 10 mg DAILY PO Last administered on 09/18/18at 08:59; Admin Dose 10 MG; Start 09/14/18 at 09:00 Atorvastatin Calcium (Lipitor) 10 mg QHS PO Last administered on 09/17/18 20:09; Admin Dose 10 MG; Start 09/13/18 at 21:00 Diagnostic Test (Pha) (Accu-Chek) 1 02 XX Last administered on 09/18/18 02:23; Admin Dose 1 EA; Start 09/14/18 at 02:00 Insulin Aspart (Novolog Insulin Pen) NOVOLOG *MILD* ALGORITHM WITH MEALS BEDTIME SC Last administered on 09/18/18 09:14; Admin Dose 3 UNIT; Start 09/13/18 at 21:00 Carvedilol (Coreg) 6.25 mg BID PO Last administered on 09/18/18 09:00; Admin Dose 6.25 MG; Start 09/14/18 at 09:00 Digoxin (Digoxin) 0.125 mg DAILY@1300 PO Last administered on 09/17/18 13:42; Admin Dose 0.125 MG; Start 09/14/18 at 13:00 Furosemide (Lasix) 40 mg BID DIURETICS IV Last administered on 09/18/18 06:58; Admin Dose 40 MG; Start 09/14/18 at 06:00 Ferrous Sulfate (Ferrous Sulfate (Ec)) 325 mg DAILY PO Last administered on 09/18/18 08:59; Admin Dose 325 MG; Start 09/14/18 at 09:00 Miscellaneous Information 1 ea NOTE XX ; Start 09/14/18 at 13:00 Glucose (Glutose) 15 gm Q15M PRN PO DECREASED GLUCOSE; Start 09/14/18 at 13:00 Glucose (Glutose) 22.5 gm Q15M PRN PO DECREASED GLUCOSE; Start 09/14/18 at 13:00 Dextrose (D50w Syringe) 25 ml Q15M PRN IV DECREASED GLUCOSE; Start 09/14/18 at 13:00 Dextrose (D50w Syringe) 50 ml Q15M PRN IV DECREASED GLUCOSE; Start 09/14/18 at 13:00 Glucagon (Glucagen) 1 mg Q15M PRN IM DECREASED GLUCOSE; Start 09/14/18 at 13:00 Glucose (Glutose) 15 gm Q15M PRN BUCCAL DECREASED GLUCOSE; Start 09/14/18 at 13:00 Spironolactone (Aldactone) 25 mg BID PO Last administered on 09/18/18 08:59; Admin Dose 25 MG; Start 09/14/18 at 21:00 Acetazolamide (Diamox) 500 mg DAILY IV Last administered on 09/17/18 08:29; Admin Dose 500 MG; Start 3/20/19 at 09:30; Status Hold Lisinopril (Zestril) 2.5 mg DAILY PO Last administered on 09/18/18at 09:00; Admin Dose 2.5 MG; Start 09/16/18 at 09:00 BEVERLEY POWER MD Sep 18, 2018 11:33
[2018-09-18] MEDS: DIGOXIN 0.125 MG TAB PO SCH (12:32)
--- NOTE | 2018-09-18 13:02 | PN ---
Date/Time of Note Date/Time of Note DATE: 09/18/18 TIME: 12:58 Assessment/Plan VTE [place]axis [place] [facility] [place]: 5 [place]CD [place] [facility] [place] Yes Pharmacological prophylaxis: heparin Lines/Catheters IV [facility] Type (from [facility] Saline Lock Urinary Cath still in place: No Assessment/Plan Problems: (1) Pulmonary hypertension Status: Chronic Comment: Have discussed with groundwater consultant. Will initiate trial of sildenafil 20 mg 3 times daily to see if this will help with the pulmonary hypertension. Please note this patient also has portal hypertension, cirrhosis and anasarca (2) Cirrhosis of liver with ascites Status: Chronic Comment: Cirrhosis of unidentified type. Possibly due to volume overload from the right ventricular failure Qualifiers: Hepatic cirrhosis type: unspecified hepatic cirrhosis Qualified Codes: K74.60 - Unspecified cirrhosis of liver; R18.8 - Other ascites (3) Right ventricular failure Status: Chronic Comment: Noted. Attempt to assist with sildenafil (4) Systolic CHF Status: Chronic Comment: Noted and on treatment Qualifiers: Heart failure chronicity: chronic Qualified Codes: I50.22 - Chronic systolic (congestive) heart failure (5) Diabetes mellitus type 2 in obese Status: Chronic Comment: The patient has inadequate glycemic control I will go ahead and try and get this started. This caution given all the other underlying issues. (6) Essential hypertension Status: Chronic Comment: Fair control at this time (7) Atrial fibrillation Status: Chronic Comment: Noted and rate controlled Qualifiers: Atrial fibrillation type: chronic Qualified Codes: I48.2 - Chronic atrial fibrillation (8) Anasarca Status: Acute Comment: She is improved after high volume paracentesis. We will let her volume status balance out and then do that again. Result Diagram: 09/18/18 0536 09/18/18 0536 Results 24hrs Laboratory Tests Test 09/17/18 17:38 09/17/18 20:08 09/18/18 02:21 09/18/18 05:36 Bedside Glucose 211 237 H 216 White Blood Count 4.8 Red Blood Count 4.75 Hemoglobin 12.1 Hematocrit 40.1 Mean Corpuscular 84.4 Volume Mean Corpuscular 25.5 L Hemoglobin Mean Corpuscular 30.2 L Hemoglobin Concent Red Cell 17.2 H Distribution Width Platelet Count 273 Mean Platelet Volume 10.7 H Immature 0.400 Granulocytes % Neutrophils % 63.3 Lymphocytes % 22.1 Monocytes % 10.3 Eosinophils % 2.9 Basophils % 1.0 Nucleated Red Blood 0.0 Cells % Immature 0.020 Granulocytes # Neutrophils # 3.1 Lymphocytes # 1.1 Monocytes # 0.5 Eosinophils # 0.1 Basophils # 0.1 Nucleated Red Blood 0.0 Cells # Prothrombin Time 19.9 H Prothrombin Time 1.6 Ratio INR International 1.68 Normalized Ratio Sodium Level 138 Potassium Level 4.4 Chloride Level 96 L Carbon Dioxide Level 31 Anion Gap 11 Blood Urea Nitrogen 28 H Creatinine 1.09 H Est Glomerular 53 L Filtrat Rate mL/min Glucose Level 211 Calcium Level 9.3 Phosphorus Level 4.4 Magnesium Level 2.0 Total Bilirubin 0.9 Direct Bilirubin 0.00 Indirect Bilirubin 0.9 Aspartate Amino 23 Transf (AST/SGOT) Alanine 17 Aminotransferase (AL T/SGPT) Alkaline Phosphatase 104 Ammonia < 9 L Total Protein 6.7 Albumin 3.6 Globulin 3.10 Albumin/Globulin 1.16 Ratio Test 09/18/18 08:57 09/18/18 12:34 Bedside Glucose 231 H 237 H Subjective 24 Hr Interval Summary Constitutional: improved Respiratory: no complaints Cardiovascular: no complaints Gastrointestinal: other Musculoskeletal: no complaints Skin: no complaints Exam/Review of Systems Exam Vitals Vital Signs Date Temp Pulse Resp B/P (MAP) Pulse Ox O2 O2 Flow FiO2 Time Delivery Rate 09/18/18 84 12:12 09/18/18 98.3 19 113/55 91 11:00 (74) 09/17/18 Room Air 17:32 09/17/18 3.0 14:29 Intake and Output 09/17/18 09/17/18 09/18/18 1515:00 23:00 07:00 IntakeIntake Total 920 ml OutputOutput Total 5000 ml 1200 ml BalanceBalance -5000 ml -280 ml Constitutional: alert, oriented Neck: supple, non-tender Respiratory: clear to auscultation, normal air movement Cardiovascular: regular rate and rhythm, other (Ventricular heave) Gastrointestinal: ascites ([place] ascites) Extremities: edema Results Results 24hrs Laboratory Tests Test 09/17/18 17:38 09/17/18 20:08 09/18/18 02:21 09/18/18 05:36 Bedside Glucose 211 237 H 216 White Blood Count 4.8 Red Blood Count 4.75 Hemoglobin 12.1 Hematocrit 40.1 Mean Corpuscular 84.4 Volume Mean Corpuscular 25.5 L Hemoglobin Mean Corpuscular 30.2 L Hemoglobin Concent Red Cell 17.2 H Distribution Width Platelet Count 273 Mean Platelet Volume 10.7 H Immature 0.400 Granulocytes % Neutrophils % 63.3 Lymphocytes % 22.1 Monocytes % 10.3 Eosinophils % 2.9 Basophils % 1.0 Nucleated Red Blood 0.0 Cells % Immature 0.020 Granulocytes # Neutrophils # 3.1 Lymphocytes # 1.1 Monocytes # 0.5 Eosinophils # 0.1 Basophils # 0.1 Nucleated Red Blood 0.0 Cells # Prothrombin Time 19.9 H Prothrombin Time 1.6 Ratio INR International 1.68 Normalized Ratio Sodium Level 138 Potassium Level 4.4 Chloride Level 96 L Carbon Dioxide Level 31 Anion Gap 11 Blood Urea Nitrogen 28 H Creatinine 1.09 H Est Glomerular 53 L Filtrat Rate mL/min Glucose Level 211 Calcium Level 9.3 Phosphorus Level 4.4 Magnesium Level 2.0 Total Bilirubin 0.9 Direct Bilirubin 0.00 Indirect Bilirubin 0.9 Aspartate Amino 23 Transf (AST/SGOT) Alanine 17 Aminotransferase (AL T/SGPT) Alkaline Phosphatase 104 Ammonia < 9 L Total Protein 6.7 Albumin 3.6 Globulin 3.10 Albumin/Globulin 1.16 Ratio Test 09/18/18 08:57 09/18/18 12:34 Bedside Glucose 231 H 237 H Medications Medication Current Medications IV Flush (NS 3 ml) 3 ml PER PROTOCOL IV ; Start 09/13/18 at 20:30 Ondansetron HCl (Zofran Inj) 4 mg Q6H PRN IV NAUSEA/VOMITING; Start 09/13/18 at 20:30 Acetaminophen (Tylenol Tab) 650 mg Q6H PRN PO .PAIN 1-3 OR TEMP Last admini stered on 09/14/18at 10:32; Admin Dose 650 MG; Start 09/13/18 at 20:30 Acetaminophen/ Hydrocodone Bitart ([place] (5/325)) 1 tab Q6H PRN PO .PAIN 4-6 Last administered on 09/17/18at 09:49; Admin Dose 1 TAB; Start 09/13/18 at 20:30 Docusate Sodium (Colace) 100 mg Q12H PRN PO .CONSTIPATION; Start 09/13/18 at 20:30 Bisacodyl (Dulcolax) 5 mg DAILY PRN PO .CONSTIPATION; Start 09/13/18 at 20:30 Loratadine (Claritin) 10 mg DAILY PO Last administered on 09/18/18 08:59; Admin Dose 10 MG; Start 09/14/18 at 09:00 Atorvastatin Calcium (Lipitor) 10 mg QHS PO Last administered on 09/17/18 20:09; Admin Dose 10 MG; Start 09/13/18 at 21:00 Diagnostic Test (Pha) (Accu-Chek) 1 ea 02 XX Last administered on 09/18/18 02:23; Admin Dose 1 EA; Start 09/14/18 at 02:00 Insulin Aspart (Novolog Insulin Pen) NOVOLOG *MILD* ALGORITHM WITH MEALS BEDTIME SC Last administered on 09/18/18 12:45; Admin Dose 3 UNIT; Start 09/13/18 at 21:00 Carvedilol (Coreg) 6.25 mg BID PO Last administered on 09/18/18 09:00; Admin Dose 6.25 MG; Start 09/14/18 at 09:00 Digoxin (Digoxin) 0.125 mg DAILY@1300 PO Last administered on 09/18/18 12:32; Admin Dose 0.125 MG; Start 09/14/18 at 13:00 Furosemide (Lasix) 40 mg BID DIURETICS IV Last administered on 09/18/18 06:58; Admin Dose 40 MG; Start 09/14/18 at 06:00 Ferrous Sulfate (Ferrous Sulfate (Ec)) 325 mg DAILY PO Last administered on 09/18/18 08:59; Admin Dose 325 MG; Start 09/14/18 at 09:00 Miscellaneous Information 1 ea NOTE XX ; Start 09/14/18 at 13:00 Glucose (Glutose) 15 gm Q15M PRN PO DECREASED GLUCOSE; Start 09/14/18 at 13:00 Glucose (Glutose) 22.5 gm Q15M PRN PO DECREASED GLUCOSE; Start 09/14/18 at 13:00 Dextrose (D50w Syringe) 25 ml Q15M PRN IV DECREASED GLUCOSE; Start 09/14/18 at 13:00 Dextrose (D50w Syringe) 50 ml Q15M PRN IV DECREASED GLUCOSE; Start 09/14/18 at 13:00 Glucagon (Glucagen) 1 mg Q15M PRN IM DECREASED GLUCOSE; Start 09/14/18 at 13:00 Glucose (Glutose) 15 gm Q15M PRN BUCCAL DECREASED GLUCOSE; Start 09/14/18 at 13:00 Spironolactone (Aldactone) 25 mg BID PO Last administered on 09/18/18at 08:59; Admin Dose 25 MG; Start 09/14/18 at 21:00 Acetazolamide (Diamox) 500 mg DAILY IV Last administered on 09/17/18at 08:29; Admin Dose 500 MG; Start 09/15/18 at 09:30; Status Hold Lisinopril (Zestril) 2.5 mg DAILY PO Last administered on 09/18/18at 09:00; Admin Dose 2.5 MG; Start 09/16/18 at 09:00 Sildenafil Citrate (Revatio) 20 mg TID PO ; Start 09/18/18 at 13:00; Status UNV Linagliptin (Tradjenta) 5 mg DAILY PO ; Start 09/18/18 at 13:00; Status MARIAN MACIAS MD Sep 18, 2018 13:02
[2018-09-18] MEDS: SILDENAFIL 20 MG TAB PO SCH ×2 (13:38→20:09)
[2018-09-18] MEDS: LINAGLIPTIN 5 MG TABLET PO SCH (13:38)
[2018-09-18] MEDS ORDERED: INSULIN ASPART [NOVOLOG] 3 ML PEN SC SCH (18:00)
[2018-09-18] MEDS: ATORVASTATIN 10 MG TAB PO SCH (20:09)
[2018-09-18] MEDS: ACETAMINOPHEN 325 MG TAB PO PRN (20:14)
[2018-09-19] VITALS (11 sets, daily range): BP systolic 98–113; BP diastolic 51–56; PULSE 57–84; RESP 18–19
[2018-09-19] MEDS: ACCU-CHEK XX SCH ×2 (02:28)
[2018-09-19] MEDS: FUROSEMIDE 40 MG INJ IV SCH ×2 (05:34→17:12)
[2018-09-19] MEDS: INSULIN ASPART [NOVOLOG] 3 ML PEN SC SCH ×4 (07:35→21:49)
[2018-09-19] MEDS: LISINOPRIL 5 MG TAB PO SCH (08:16)
[2018-09-19] MEDS: FERROUS SULFATE (EC) 325 MG TAB PO SCH (08:17)
[2018-09-19] MEDS: LORATADINE 10 MG TAB PO SCH (08:17)
[2018-09-19] MEDS: SILDENAFIL 20 MG TAB PO SCH ×2 (08:17→12:47)
[2018-09-19] MEDS: SPIRONOLACTONE 25 MG TAB PO SCH ×2 (08:17→20:42)
[2018-09-19] MEDS: LINAGLIPTIN 5 MG TABLET PO SCH (08:18)
[2018-09-19] MEDS ORDERED: INSULIN GLARGINE [LANTus] (100 UNITS/ML) SYG SC ONE (11:00)
--- NOTE | 2018-09-19 11:00 | PN ---
DATE: 09/19/2018 SUBJECTIVE: The patient is clinically improving. Shortness of breath has improved. No other events noted. OBJECTIVE: VITAL SIGNS: Blood pressure is 104/52, respiration 18, pulse 70, temperature 98.0. HEENT: Head is normocephalic. NECK: Supple. HEART: Regular rate. LUNGS: Show diminished breath sounds at the base. ABDOMEN: Soft, nontender to palpation without rebound or guarding. EXTREMITIES: Negative for clubbing, cyanosis, no edema. The patient does have underlying edema. DERMATOLOGIC: No rashes. MUSCULOSKELETAL: No joint effusion. NEUROLOGIC: No change in exam. MEDICATIONS: The patient's medications have been reviewed. LABORATORY DATA: Has been reviewed. ASSESSMENT AND PLAN: 1. Acute decompensated right-sided heart failure. Etiology is believed to be secondary to pulmonary hypertension. The patient has been clinically improving. The patient has been initiated on sildena bam. Will continue to monitor closely. Continue current diuretic regimen and monitor electrolytes a nd renal function closely. Anticipate transitioning to oral Lasix or Bumex. 2. Pulmonary hypertension. Etiology is unclear, possibly idiopathic. The patient is on sildenafil and monitor closely. 3. Cirrhosis with ascites likely due to right-sided heart failure. The patient is status post parac entesis. Continue to monitor. 4. Chronic atrial fibrillation. Continue medical management. 5. History of valve replacement. 6. Dyslipidemia. Continue statin therapy. 7. Nonoliguric acute kidney injury, etiology secondary to hemodynamics, diuretics. Patient's renal function is stable. Continue Lasix, Aldactone at this time. 8. Diabetes. Continue current insulin regimen. 9. Dyslipidemia. Continue statin therapy. 10. Hypertension. Monitor closely. Dictated By: JANINA SOTO DO NR/NTS Conf#: [id number] DID#: [id number] CC: REBA FERREIRA MD; ELENA BOSTON MD;*End*
--- NOTE | 2018-09-19 11:04 | PN ---
Date/Time of Note Date/Time of Note DATE: 09/19/18 TIME: 11:01 Assessment/Plan VTE Prophylaxis Risk score (from [facility])>0 risk: 1 SCD applied (from [facility]): Yes Pharmacological prophylaxis: heparin Lines/Catheters IV Catheter Type (from [place]): Saline Lock Urinary Cath still in place: No Assessment/Plan Problems: (1) Right ventricular failure Status: Chronic Comment: She is undergoing medical treatment as best we are able to. At this time she appears to be well compensated and very importantly she is tolerating of the treatment for the pulmonary hypertension (2) Pulmonary hypertension Status: Chronic Comment: She is tolerating the addition of sildenafil without issue. Once she is accommodated to this consideration for repeat high volume paracentesis would be appropriate (3) Cirrhosis of liver with ascites Status: Chronic Comment: Stable at this time. Consideration for repeat high volume paracentesi s tomorrow or the day after Qualifiers: Hepatic cirrhosis type: unspecified hepatic cirrhosis Qualified Codes: K74.60 - Unspecified cirrhosis of liver; R18.8 - Other ascites (4) Atrial fibrillation Status: Chronic Comment: Stable and rate controlled Qualifiers: Atrial fibrillation type: chronic Qualified Codes: I48.2 - Chronic atrial fibrillation (5) Systolic CHF Status: Chronic Comment: This is minor in comparison to the right ventricular failure. Qualifiers: Heart failure chronicity: chronic Qualified Codes: I50.22 - Chronic systolic (congestive) heart failure (6) Diabetes mellitus type 2 in obese Status: Chronic Comment: Her control is not at goal. I am going to add in insulin due to the multiple medical problems (7) Essential hypertension Status: Chronic Comment: Adequate control (8) Hyperlipidemia associated with type 2 diabetes mellitus Status: Chronic Comment: Noted. With the cirrhosis careful usage of medication Result Diagram: 09/19/18 0509/19/18 0520 Results 24hrs Laboratory Tests Test 09/18/18 12:34 09/18/18 16:55 09/18/18 20:06 09/19/18 02:16 Bedside Glucose 237 H 216 263 H 218 Test 09/19/18 05:20 09/19/18 07:30 White Blood Count 6.0 # Red Blood Count 4.63 Hemoglobin 11.7 L Hematocrit 38.8 Mean Corpuscular 83.8 Volume Mean Corpuscular 25.3 L Hemoglobin Mean Corpuscular 30.2 L Hemoglobin Concent Red Cell 17.4 H Distribution Width Platelet Count 248 Mean Platelet Volume 10.3 Immature 0.500 H Granulocytes % Neutrophils % 59.9 Lymphocytes % 22.0 Monocytes % 14.3 H Eosinophils % 2.5 Basophils % 0.8 Nucleated Red Blood 0.0 Cells % Immature 0.030 Granulocytes # Neutrophils # 3.6 Lymphocytes # 1.3 Monocytes # 0.9 Eosinophils # 0.2 Basophils # 0.1 Nucleated Red Blood 0.0 Cells # Sodium Level 138 Potassium Level 4.1 Chloride Level 95 L Carbon Dioxide Level 31 Anion Gap 12 Blood Urea Nitrogen 34 H Creatinine 1.05 H Est Glomerular 55 L Filtrat Rate mL/min Glucose Level 214 Calcium Level 9.3 Phosphorus Level 4.3 Magnesium Level 2.0 Bedside Glucose 206 Subjective 24 Hr Interval Summary Free Text/Dictation Patient reports she is feeling a bit better today. She reports her breathing is doing better Constitutional: no complaints Respiratory: no complaints, shortness of breath (Improved) Cardiovascular: no complaints Gastrointestinal: no complaints, other (Distention is the same) Musculoskeletal: no complaints Exam/Review of Systems Exam Vitals Vital Signs Date Temp Pulse Resp B/P (MAP) Pulse Ox O2 O2 Flow FiO2 Time Delivery Rate 09/19/18 63 08:06 09/19/18 98.0 18 104/52 94 07:49 (69) 09/17/18 Room Air 17:32 09/17/18 3.0 14:29 Intake and Output 09/18/18 09/18/18 09/19/18 1414:59 22:59 06:59 IntakeIntake Total 720 ml 700 ml 600 ml OutputOutput Total 1500 ml 2200 ml 1200 ml BalanceBalance -780 ml -1500 ml -600 ml Constitutional: alert, oriented Neck: supple, non-tender Respiratory: clear to auscultation, normal air movement Cardiovascular: nl pulses, irregular rhythm, other (Ventricular heave is still present) Gastrointestinal: soft, ascites (High volume ascites) Extremities: pitting pedal edema (2+) Results Results 24hrs Laboratory Tests Test 09/18/18 12:34 09/18/18 16:55 09/18/18 20:06 09/19/18 02:16 Bedside Glucose 237 H 216 263 H 218 Test 09/19/18 05:20 09/19/18 07:30 White Blood Count 6.0 # Red Blood Count 4.63 Hemoglobin 11.7 L Hematocrit 38.8 Mean Corpuscular 83.8 Volume Mean Corpuscular 25.3 L Hemoglobin Mean Corpuscular 30.2 L Hemoglobin Concent Red Cell 17.4 H Distribution Width Platelet Count 248 Mean Platelet Volume 10.3 Immature 0.500 H Granulocytes % Neutrophils % 59.9 Lymphocytes % 22.0 Monocytes % 14.3 H Eosinophils % 2.5 Basophils % 0.8 Nucleated Red Blood 0.0 Cells % Immature 0.030 Granulocytes # Neutrophils # 3.6 Lymphocytes # 1.3 Monocytes # 0.9 Eosinophils # 0.2 Basophils # 0.1 Nucleated Red Blood 0.0 Cells # Sodium Level 138 Potassium Level 4.1 Chloride Level 95 L Carbon Dioxide Level 31 Anion Gap 12 Blood Urea Nitrogen 34 H Creatinine 1.05 H Est Glomerular 55 L Filtrat Rate mL/min Glucose Level 214 Calcium Level 9.3 Phosphorus Level 4.3 Magnesium Level 2.0 Bedside Glucose 206 Medications Medication Current Medications IV Flush (NS 3 ml) 3 ml PER PROTOCOL IV ; Start 09/13/18 at 20:30 Ondansetron HCl (Zofran Inj) 4 mg Q6H PRN IV NAUSEA/VOMITING; Start 09/13/18 at 20:30 Acetaminophen (Tylenol Tab) 650 mg Q6H PRN PO .PAIN 1-3 OR TEMP Last adm inistered on 09/18/18at 20:14; Admin Dose 650 MG; Start 09/13/18 at 20:30 Acetaminophen/ Hydrocodone Bitart ([place] (5/325)) 1 tab Q6H PRN PO .PAIN 4-6 Last administered on 09/17/18 09:49; Admin Dose 1 TAB; Start 09/13/18 at 20:30 Docusate Sodium (Colace) 100 mg Q12H PRN PO .CONSTIPATION; Start 09/13/18 at 20:30 Bisacodyl (Dulcolax) 5 mg DAILY PRN PO .CONSTIPATION; Start 09/13/18 at 20:30 Loratadine (Claritin) 10 mg DAILY PO Last administered on 09/19/18 08:17; Admin Dose 10 MG; Start 09/14/18 at 09:00 Atorvastatin Calcium (Lipitor) 10 mg QHS PO Last administered on 09/18/18 20:09; Admin Dose 10 MG; Start 09/13/18 at 21:00 Diagnostic Test (Pha) (Accu-Chek) 1 ea 02 XX Last administered on 09/19/18 02:28; Admin Dose 1 EA; Start 09/14/18 at 02:00 Insulin Aspart (Novolog Insulin Pen) NOVOLOG *MILD* ALGORITHM WITH MEALS BEDTIME SC Last administered on 09/19/18 07:35; Admin Dose 2 UNIT; Start 09/13/18 at 21:00 Carvedilol (Coreg) 6.25 mg BID PO Last administered on 09/19/18 08:18; Admin Dose 6.25 MG; Start 09/14/18 at 09:00 Digoxin (Digoxin) 0.125 mg DAILY@1300 PO Last administered on 09/18/18 12:32; Admin Dose 0.125 MG; Start 09/14/18 at 13:00 Furosemide (Lasix) 40 mg BID DIURETICS IV Last administered on 09/19/18 05:34; Admin Dose 40 MG; Start 09/14/18 at 06:00 Ferrous Sulfate (Ferrous Sulfate (Ec)) 325 mg DAILY PO Last administered on 09/19/18 08:17; Admin Dose 325 MG; Start 09/14/18 at 09:00 Miscellaneous Information 1 ea NOTE XX ; Start 09/14/18 at 13:00 Glucose (Glutose) 15 gm Q15M PRN PO DECREASED GLUCOSE; Start 09/14/18 at 13:00 Glucose (Glutose) 22.5 gm Q15M PRN PO DECREASED GLUCOSE; Start 09/14/18 at 13:00 Dextrose (D50w Syringe) 25 ml Q15M PRN IV DECREASED GLUCOSE; Start 09/14/18 at 13:00 Dextrose (D50w Syringe) 50 ml Q15M PRN IV DECREASED GLUCOSE; Start 09/14/18 at 13:00 Glucagon (Glucagen) 1 mg Q15M PRN IM DECREASED GLUCOSE; Start 09/14/18 at 13:00 Glucose (Glutose) 15 gm Q15M PRN BUCCAL DECREASED GLUCOSE; Start 09/14/18 at 13:00 Spironolactone (Aldactone) 25 mg BID PO Last administered on 09/19/18 08:17; Admin Dose 25 MG; Start 09/14/18 at 21:00 Acetazolamide (Diamox) 500 mg DAILY IV Last administered on 09/17/18at 08:29; Admin Dose 500 MG; Start 09/15/18 at 09:30; Status Hold Lisinopril (Zestril) 2.5 mg DAILY PO Last administered on 09/18/18at 09:00; Admin Dose 2.5 MG; Start 09/16/18 at 09:00 Sildenafil Citrate (Revatio) 20 mg TID PO Last administered on 09/19/18at 08:17; Admin Dose 20 MG; Start 09/18/18 at 13:00 Linagliptin (Tradjenta) 5 mg DAILY PO Last administered on 09/19/18at 08:18; Admin Dose 5 MG; Start 09/18/18 at 13:00 Diagnostic Test (Pha) (Accu-Chek) 1 ea 02 XX Last administered on 09/19/18at 02:28; Admin Dose 1 EA; Start 09/19/18 at 02:00 Insulin Glargine (Lantus) 8 units DAILY@0800 SC ; Start 09/20/18 at 08:00; Status UNV Insulin Glargine (Lantus) 8 units ONCE ONCE SC ; Start 09/19/18 at 11:00; Stop 09/19/18 at 11:01; Status UNV MARIAN BRITTON MD Sep 19, 2018 11:04
[2018-09-19] MEDS: DIGOXIN 0.125 MG TAB PO SCH (12:47)
--- NOTE | 2018-09-19 14:42 | CONS ---
Assessment/Plan Cardiology NYHA: III Heart Failure Type: Acute Heart Failure Type: Systolic Assessment/Plan Hospital Course (Demo Recall) Acute decompensated left ventricular and right ventricular systolic failure Cardia myopathy left ventricular ejection fraction 45% RV dysfunction Severe pulmonary hypertension Atrial fibrillation History of bioprosthetic mitral valve Diabetes Hypertension Ascites status post paracentesis -Patient status post paracentesis with improvement in symptoms. Plan for repeat tomorrow given patient has remained off anticoagulation. Restart Coumadin after paracentesis. -I will hold antihypertensives overnight and for tomorrow prior to paracentesis -Diuretics being titrated as per nephrology -If blood pressure on the lower side in the morning, consider albumin prior to paracentesis Consultation Date/Type/Reason Admit Date/Time Sep 13, 2018 at 18:52 Initial Consult Date Type of Consult Cardiology Date/Time of Note DATE: 09/19/18 TIME: 14:37 24 HR Interval Summary Free Text/Dictation Feels better, less shortness of breath. Abdomen feels better Exam/Review of Systems Vital Signs Vitals Vital Signs Date Temp Pulse Resp B/P (MAP) Pulse Ox O2 O2 Flow FiO2 Time Delivery Rate 09/19/18 84 11:52 09/19/18 98.2 18 98/56 (70) 91 11:20 09/17/18 Room Air 17:32 09/17/18 3.0 14:29 Intake and Output 09/18/18 09/18/18 09/19/18 1515:00 23:00 07:00 IntakeIntake Total 720 ml 700 ml 600 ml OutputOutput Total 1500 ml 2200 ml 1200 ml BalanceBalance -780 ml -1500 ml -600 ml Exam Constitutional: alert, oriented (No apparent distress) Head: normocephalic Respiratory: other (Coarse breath sounds bilaterally, no wheezing) Cardiovascular: irregular rhythm, other (S1-S2 heard) Gastrointestinal: soft, non-tender, bowel sounds Extremities: edema Labs Result Diagram: 09/19/18 0520 09/19/18 0520 Results 24hrs Laboratory Tests Test 09/18/18 16:55 09/18/18 20:06 09/19/18 02:16 09/19/18 05:20 Bedside Glucose 216 263 H 218 White Blood Count 6.0 # Red Blood Count 4.63 Hemoglobin 11.7 L Hematocrit 38.8 Mean Corpuscular 83.8 Volume Mean Corpuscular 25.3 L Hemoglobin Mean Corpuscular 30.2 L Hemoglobin Concent Red Cell 17.4 H Distribution Width Platelet Count 248 Mean Platelet Volume 10.3 Immature 0.500 H Granulocytes % Neutrophils % 59.9 Lymphocytes % 22.0 Monocytes % 14.3 H Eosinophils % 2.5 Basophils % 0.8 Nucleated Red Blood 0.0 Cells % Immature 0.030 Granulocytes # Neutrophils # 3.6 Lymphocytes # 1.3 Monocytes # 0.9 Eosinophils # 0.2 Basophils # 0.1 Nucleated Red Blood 0.0 Cells # Sodium Level 138 Potassium Level 4.1 Chloride Level 95 L Carbon Dioxide Level 31 Anion Gap 12 Blood Urea Nitrogen 34 H Creatinine 1.05 H Est Glomerular 55 L Filtrat Rate mL/min Glucose Level 214 Calcium Level 9.3 Phosphorus Level 4.3 Magnesium Level 2.0 Test 09/19/18 07:30 09/19/18 11:43 Bedside Glucose 206 251 H Medications Medications Current Medications IV Flush (NS 3 ml) 3 ml PER PROTOCOL IV ; Start 09/13/18 at 20:30 Ondansetron HCl (Zofran Inj) 4 mg Q6H PRN IV NAUSEA/VOMITING; Start 09/13/18 at 20:30 Acetaminophen (Tylenol Tab) 650 mg Q6H PRN PO .PAIN 1-3 OR TEMP Last administered on 09/18/18at 20:14; Admin Dose 650 MG; Start 09/13/18 at 20:30 Acetaminophen/ Hydrocodone Bitart ([place] (5/325)) 1 tab Q6H PRN PO .PAIN 4-6 Last administered on 09/17/18at 09:49; Admin Dose 1 TAB; Start 09/13/18 at 20:30 Docusate Sodium (Colace) 100 mg Q12H PRN PO .CONSTIPATION; Start 09/13/18 at 20:30 Bisacodyl (Dulcolax) 5 mg DAILY PRN PO .CONSTIPATION; Start 09/13/18 at 20:30 Loratadine (Claritin) 10 mg DAILY PO Last administered on 09/19/18 08:17; Admin Dose 10 MG; Start 09/14/18 at 09:00 Atorvastatin Calcium (Lipitor) 10 mg QHS PO Last administered on 09/18/18at 20:09; Admin Dose 10 MG; Start 09/13/18 at 21:00 Diagnostic Test (Pha) (Accu-Chek) 1 ea 02 XX Last administered on 09/19/18 02:28; Admin Dose 1 EA; Start 09/14/18 at 02:00 Insulin Aspart (Novolog Insulin Pen) NOVOLOG *MILD* ALGORITHM WITH MEALS BEDTIME SC Last administered on 09/19/18 11:51; Admin Dose 3 UNIT; Start 09/13/18 at 21:00 Carvedilol (Coreg) 6.25 mg BID PO Last administered on 09/19/18 08:18; Admin Dose 6.25 MG; Start 09/14/18 at 09:00 Digoxin (Digoxin) 0.125 mg DAILY@1300 PO Last administered on 09/19/18 12:47; Admin Dose 0.125 MG; Start 09/14/18 at 13:00 Furosemide (Lasix) 40 mg BID DIURETICS IV Last administered on 09/19/18 05:34; Admin Dose 40 MG; Start 09/14/18 at 06:00 Ferrous Sulfate (Ferrous Sulfate (Ec)) 325 mg DAILY PO Last administered on 09/19/18 08:17; Admin Dose 325 MG; Start 09/14/18 at 09:00 Miscellaneous Information 1 ea NOTE XX ; Start 09/14/18 at 13:00 Glucose (Glutose) 15 gm Q15M PRN PO DECREASED GLUCOSE; Start 09/14/18 at 13:00 Glucose (Glutose) 22.5 gm Q15M PRN PO DECREASED GLUCOSE; Start 09/14/18 at 13:00 Dextrose (D50w Syringe) 25 ml Q15M PRN IV DECREASED GLUCOSE; Start 09/14/18 at 13:00 Dextrose (D50w Syringe) 50 ml Q15M PRN IV DECREASED GLUCOSE; Start 09/14/18 at 13:00 Glucagon (Glucagen) 1 mg Q15M PRN IM DECREASED GLUCOSE; Start 09/14/18 at 13:00 Glucose (Glutose) 15 gm Q15M PRN BUCCAL DECREASED GLUCOSE; Start 09/14/18 at 13:00 Spironolactone (Aldactone) 25 mg BID PO Last administered on 09/19/18 08:17; Admin Dose 25 MG; Start 09/14/18 at 21:00 Acetazolamide (Diamox) 500 mg DAILY IV Last administered on 09/17/18 08:29; Admin Dose 500 MG; Start 09/15/18 at 09:30; Status Hold Lisinopril (Zestril) 2.5 mg DAILY PO Last administered on 09/18/18 09:00; Admin Dose 2.5 MG; Start 09/16/18 at 09:00 Sildenafil Citrate (Revatio) 20 mg TID PO Last administered on 09/19/18at 12:47; Admin Dose 20 MG; Start 09/18/18 at 13:00 Linagliptin (Tradjenta) 5 mg DAILY PO Last administered on 09/19/18at 08:18; Admin Dose 5 MG; Start 09/18/18 at 13:00 Diagnostic Test (Pha) (Accu-Chek) 1 ea 02 XX Last administered on 09/19/18at 02:28; Admin Dose 1 EA; Start 09/19/18 at 02:00 Insulin Glargine (Lantus) 8 units DAILY@0800 SC ; Start 09/20/18 at 08:00 Rodger Choi DO Sep 19, 2018 14:42
[2018-09-19] MEDS: ATORVASTATIN 10 MG TAB PO SCH (20:42)
[2018-09-19] MEDS ORDERED: INSULIN ASPART [NOVOLOG] 3 ML PEN SC ONE ×2 (22:00)
[2018-09-19] MEDS: ACETAMINOPHEN 325 MG TAB PO PRN (23:51)
[2018-09-20] VITALS (11 sets, daily range): BP systolic 104–120; BP diastolic 50–64; PULSE 61–85; RESP 17–20
[2018-09-20] MEDS: ACCU-CHEK XX SCH (02:20)
[2018-09-20] MEDS: FUROSEMIDE 40 MG INJ IV SCH ×2 (06:31→17:01)
[2018-09-20] MEDS: INSULIN ASPART [NOVOLOG] 3 ML PEN SC SCH ×4 (07:49→21:57)
[2018-09-20] MEDS: INSULIN GLARGINE [LANTus] (100 UNITS/ML) SYG SC SCH (07:50)
[2018-09-20] MEDS: SPIRONOLACTONE 25 MG TAB PO SCH ×2 (08:36→21:52)
[2018-09-20] MEDS: LORATADINE 10 MG TAB PO SCH (08:36)
[2018-09-20] MEDS: FERROUS SULFATE (EC) 325 MG TAB PO SCH (08:36)
[2018-09-20] MEDS: LINAGLIPTIN 5 MG TABLET PO SCH (08:36)
--- NOTE | 2018-09-20 09:16 | PN ---
DATE: 09/20/2018 SUBJECTIVE: The patient is clinically improving. No events overnight. No fevers, chills, nausea, v omiting. OBJECTIVE: VITAL SIGNS: Blood pressure is 104/57, respiration 17, pulse 61, temperature 98.2. HEENT: Head is normocephalic. NECK: Supple. HEART: Regular rate. LUNGS: Show diminished breath sounds at base. ABDOMEN: Soft, nontender to palpation without rebound or guarding. EXTREMITIES: Negative for clubbing, cyanosis, no edema. DERMATOLOGIC: No rashes. MUSCULOSKELETAL: No joint effusion. NEUROLOGIC: No change in exam. MEDICATIONS: The patient's medications have been reviewed. LABORATORY DATA: The laboratory data has been reviewed. ASSESSMENT AND PLAN: 1. Acute decompensated right-sided heart failure. The patient's etiology is believed to be secondar y to pulmonary hypertension. The patient is clinically improving. Continue medical management. Con tinues sildenafil diuretic therapy, monitor closely. 2. Pulmonary hypertension. The patient is on sildenafil, continue to monitor. 3. Cirrhosis with ascites secondary to right-sided heart failure. The patient is pending a repeat p aracentesis. 4. Chronic atrial fibrillation. Continue medical management. 5. History of valve replacement. 6. Dyslipidemia. Continue statin therapy. 7. Nonoliguric acute injury. Etiology is secondary to hemodynamics. Continue to monitor. Continue Lasix, Aldactone. 8. Diabetes. Continue current insulin regimen. 9. Dyslipidemia. Continue statin therapy. 10. Hypertension. Continue to monitor closely. Dictated By: JANINA PINEDA/NTS Conf#: [id number] DID#: [id number] CC: REBA FERREIRA MD; ELENA BOSTON MD;*EndCC*
[2018-09-20] MEDS ORDERED: LIDOCAINE 1% (MPF) 5 ML VIAL ONE (10:20)
--- NOTE | 2018-09-20 11:26 | PN ---
Date/Time of Note Date/Time of Note DATE: 09/20/18 TIME: 11:25 Assessment/Plan VTE Prophylaxis Risk score (from Ns)>0 risk: 3 SCD applied (from [facility]): No SCD contraindicated: other Pharmacological prophylaxis: NA/contraindicated Pharm contraindication: liver dx, anticoag not tolerated Lines/Catheters IV [facility] [place] Urinary Cath still in place: No Assessment/Plan Hospital Course SUBJECTIVE: Lying in bed, status post paracentesis. No acute discomfort. OBJECTIVE: Vital signs-see below PHYSICAL EXAM: Constitutional: Well-developed, adequately built, lying in bed comfortably. Psych: nl mood/affect, no complaints Head: atraumatic, normocephalic Eyes: nl conjunctiva, nl sclera ENMT: mucosa pink and moist, nl external ears & nose Neck: non-tender, supple Respiratory: clear to auscultation, normal air movement Cardiovascular: nl pulses, regular rate and rhythm Gastrointestinal: +Ascites. non-tender, soft, bowel sounds active in all 4 quadrants. Musculoskeletal/extremities: nl extremities to inspection, motor strength equal bilaterally, no focal deficit. Normal pulses,no cyanosis, no edema. Neurological: Alert oriented 3,nl speech, nl strength Skin: nl turgor ASSESSMENT/PLAN:53 yo morbidly obese f w/cm,Hf,mvr,ascites, here w/worsening sob,ascites,anasarca.. 1. Acute decompensated systolic heart failure. -Continue medical management/diuretics/Aldactone/ACEi -We will up cardiology recommendations. 2.Liver cirrhosis w/ Large volume ascites -s/p paracentesis 3/2 w/ 9l => fluid studies did not sent for unclear reason. She is getting paracentesis again today=> We will send her fluid studies to today's paracentesis specimen to rule out other process. -Continue diuresis/Aldactone. -GI consult -may require TIPS if she fails medical mgmt in the future.. 3. Pulmonary hypertension -On treatment with sildenafil -This definitely warrants outpatient follow-up/treatment modalities in context of ascites.. -pulmonary consult 4. Atrial fibrillation -Unable to tolerate beta-blockers secondary to profound hypotension. Currently on digoxin for rate control. Not a candidate for anticoagulation. -Follow-up cardiology recommendations. 5. Essential hypertension. -Adequate control. Continue antihypertensives. 6. Type 2 diabetes. -Insulin dose was titrated yesterday and seems like blood sugar is getting stabilized. We will continue to monitor and will adjust dose accordingly. 7. Hyperlipidemia. -On appropriate statin dose. 8. History of mitral valve replacement surgery. DVT prophylaxis: SCDs PUD prophylaxis: Not indicated CODE STATUS: Full code Diet: Carbohydrate controlled/2 g sodium diet with fluid restriction 1200 cc. Disposition: Continue current management. Await for paracentesis fluid studies. Follow-up cardiology/gi/pulmonary recommendations.PT eval today. Patient was seen in collaboration with Result Diagram: 09/20/1852509/20/18525 Results 24hrs Laboratory Tests Test 09/19/18 11:43 09/19/18 17:11 09/19/18 20:36 09/20/18 02:24 Bedside Glucose 251 H 298 H 324 H 189 Test 09/20/18 05:25 09/20/18 05:26 09/20/18 07:41 09/20/18 08:48 Prothrombin Time 17.6 H Prothrombin Time 1.4 Ratio INR International 1.44 Normalized Ratio White Blood Count 5.6 Red Blood Count 4.66 Hemoglobin 11.8 L Hematocrit 38.5 Mean Corpuscular 82.6 Volume Mean Corpuscular 25.3 L Hemoglobin Mean Corpuscular 30.6 L Hemoglobin Concen t Red Cell 17.2 H Distribution Width Platelet Count 252 Mean Platelet 10.7 H Volume Immature 0.900 H Granulocytes % Neutrophils % 63.3 Lymphocytes % 21.4 Monocytes % 11.4 H Eosinophils % 2.3 Basophils % 0.7 Nucleated Red 0.0 Blood Cells % Immature 0.050 H Granulocytes # Neutrophils # 3.6 Lymphocytes # 1.2 Monocytes # 0.6 Eosinophils # 0.1 Basophils # 0.0 Nucleated Red 0.0 Blood Cells # Sodium Level 137 Potassium Level 4.0 Chloride Level 98 Carbon Dioxide 30 Level Anion Gap 9 Blood Urea 33 H Nitrogen Creatinine 1.01 H Est Glomerular 57 L Filtrat Rate mL/min Glucose Level 193 Calcium Level 9.3 Phosphorus Level 4.2 Magnesium Level 2.0 Bedside Glucose 197 Lab Scanned BLOOD TRANSFUSIO Report N Exam/Review of Systems Exam Vitals Vital Signs Date Temp Pulse Resp B/P (MAP) Pulse Ox O2 O2 Flow FiO2 Time Delivery Rate 09/20/18 65 08:42 09/20/18 98.2 17 104/57 97 07:29 (73) 09/19/18 Nasal 3.0 20:40 Cannula Intake and Output 09/19/18 09/19/18 09/20/18 1515:00 23:00 07:00 IntakeIntake Total 920 ml 140 ml OutputOutput Total 1100 ml 500 ml BalanceBalance -180 ml -360 ml Results Results 24hrs Laboratory Tests Test 09/19/18 11:43 09/19/18 17:11 09/19/18 20:36 09/20/18 02:24 Bedside Glucose 251 H 298 H 324 H 189 Test 09/20/18 05:25 09/20/18 05:26 09/20/18 07:41 09/20/18 08:48 Prothrombin Time 17.6 H Prothrombin Time 1.4 Ratio INR International 1.44 Normalized Ratio White Blood Count 5.6 Red Blood Count 4.66 Hemoglobin 11.8 L Hematocrit 38.5 Mean Corpuscular 82.6 Volume Mean Corpuscular 25.3 L Hemoglobin Mean Corpuscular 30.6 L Hemoglobin Concen t Red Cell 17.2 H Distribution Width Platelet Count 252 Mean Platelet 10.7 H Volume Immature 0.900 H Granulocytes % Neutrophils % 63.3 Lymphocytes % 21.4 Monocytes % 11.4 H Eosinophils % 2.3 Basophils % 0.7 Nucleated Red 0.0 Blood Cells % Immature 0.050 H Granulocytes # Neutrophils # 3.6 Lymphocytes # 1.2 Monocytes # 0.6 Eosinophils # 0.1 Basophils # 0.0 Nucleated Red 0.0 Blood Cells # Sodium Level 137 Potassium Level 4.0 Chloride Level 98 Carbon Dioxide 30 Level Anion Gap 9 Blood Urea 33 H Nitrogen Creatinine 1.01 H Est Glomerular 57 L Filtrat Rate mL/min Glucose Level 193 Calcium Level 9.3 Phosphorus Level 4.2 Magnesium Level 2.0 Bedside Glucose 197 Lab Scanned BLOOD TRANSFUSIO Report N Medications Medication Current Medications IV Flush (NS 3 ml) 3 ml PER PROTOCOL IV ; Start 09/13/18 at 20:30 Ondansetron HCl (Zofran Inj) 4 mg Q6H PRN IV NAUSEA/VOMITING; Start 09/13/18 at 20:30 Acetaminophen (Tylenol Tab) 650 mg Q6H PRN PO .PAIN 1-3 OR TEMP Last administered on 09/19/18at 23:51; Admin Dose 650 MG; Start 09/13/18 at 20:30 Acetaminophen/ Hydrocodone Bitart ([place] (5/325)) 1 tab Q6H PRN PO .PAIN 4-6 Last administered on 09/17/18 09:49; Admin Dose 1 TAB; Start 09/13/18 at 20:30 Docusate Sodium (Colace) 100 mg Q12H PRN PO .CONSTIPATION; Start 09/13/18 at 20:30 Bisacodyl (Dulcolax) 5 mg DAILY PRN PO .CONSTIPATION; Start 09/13/18 at 20:30 Loratadine (Claritin) 10 mg DAILY PO Last administered on 09/20/18 08:36; Admin Dose 10 MG; Start 09/14/18 at 09:00 Atorvastatin Calcium (Lipitor) 10 mg QHS PO Last administered on 09/19/18 20:42; Admin Dose 10 MG; Start 09/13/18 at 21:00 Insulin Aspart (Novolog Insulin Pen) NOVOLOG *MILD* ALGORITHM WITH MEALS BEDTIME SC Last administered on 09/20/18 07:49; Admin Dose 2 UNIT; Start 09/13/18 at 21:00 Carvedilol (Coreg) 6.25 mg BID PO Last administered on 09/19/18 08:18; Admin Dose 6.25 MG; Start 09/14/18 at 09:00; Status Hold Digoxin (Digoxin) 0.125 mg DAILY@1300 PO Last administered on 09/19/18 12:47; Admin Dose 0.125 MG; Start 09/14/18 at 13:00 Furosemide (Lasix) 40 mg BID DIURETICS IV Last administered on 09/20/18 06:31; Admin Dose 40 MG; Start 09/14/18 at 06:00 Ferrous Sulfate (Ferrous Sulfate (Ec)) 325 mg DAILY PO Last administered on 09/20/18 08:36; Admin Dose 325 MG; Start 09/14/18 at 09:00 Miscellaneous Information 1 ea NOTE XX ; Start 09/14/18 at 13:00 Glucose (Glutose) 15 gm Q15M PRN PO DECREASED GLUCOSE; Start 09/14/18 at 13:00 Glucose (Glutose) 22.5 gm Q15M PRN PO DECREASED GLUCOSE; Start 09/14/18 at 13:00 Dextrose (D50w Syringe) 25 ml Q15M PRN IV DECREASED GLUCOSE; Start 09/14/18 at 13:00 Dextrose (D50w Syringe) 50 ml Q15M PRN IV DECREASED GLUCOSE; Start 09/14/18 at 13:00 Glucagon (Glucagen) 1 mg Q15M PRN IM DECREASED GLUCOSE; Start 09/14/18 at 13:00 Glucose (Glutose) 15 gm Q15M PRN BUCCAL DECREASED GLUCOSE; Start 09/14/18 at 13:00 Spironolactone (Aldactone) 25 mg BID PO Last administered on 09/20/18 08:36; Admin Dose 25 MG; Start 09/14/18 at 21:00 Acetazolamide (Diamox) 500 mg DAILY IV Last administered on 09/17/18 08:29; Admin Dose 500 MG; Start 09/15/18 at 09:30; Status Hold Lisinopril (Zestril) 2.5 mg DAILY PO Last administered on 09/18/18 09:00; Admin Dose 2.5 MG; Start 09/16/18 at 09:00; Status Hold Sildenafil Citrate (Revatio) 20 mg TID PO Last administered on 09/19/18 12:47; Admin Dose 20 MG; Start 09/18/18 at 13:00; Status Hold Linagliptin (Tradjenta) 5 mg DAILY PO Last administered on 09/20/18 08:36; Admin Dose 5 MG; Start 09/18/18 at 13:00 Diagnostic Test (Pha) (Accu-Chek) 1 ea 02 XX Last administered on 09/20/18 02:20; Admin Dose 1 EA; Start 09/19/18 at 02:00 Insulin Glargine (Lantus) 8 units DAILY@0800 SC Last administered on 09/20/18 07:50; Admin Dose 8 UNITS; Start 09/20/18 at 08:00 ANCA BURT NP Sep 20, 2018 11:26
--- NOTE | 2018-09-20 12:14 | CONS ---
Assessment/Plan Cardiology NYHA: III Heart Failure Type: Acute Heart Failure Type: Systolic Assessment/Plan Hospital Course (Demo Recall) Acute decompensated left ventricular and right ventricular systolic failure Cardia myopathy left ventricular ejection fraction 45% RV dysfunction Severe pulmonary hypertension Atrial fibrillation History of bioprosthetic mitral valve Diabetes Hypertension Ascites status post paracentesis -Patient status post paracentesis with improvement in symptoms. Plan for repeat today given patient has remained off anticoagulation. Restart Coumadin after paracentesis. -Diuretics being titrated as per nephrology -If blood pressure on the lower side prior to paracentesis, consider albumin prior to paracentesis Consultation Date/Type/Reason Admit Date/Time Sep 13, 2018 at 18:52 Initial Consult Date Type of Consult Cardiology Date/Time of Note DATE: 09/20/18 TIME: 12:13 24 HR Interval Summary Free Text/Dictation Shortness of breath continues to improve. Abdominal discomfort is better Exam/Review of Systems Vital Signs Vitals Vital Signs Date Temp Pulse Resp B/P (MAP) Pulse Ox O2 O2 Flow FiO2 Time Delivery Rate 09/20/18 Nasal 4.0 11:24 Cannula 09/20/18 98.5 79 20 111/64 95 11:22 (80) Intake and Output 09/19/18 09/19/18 09/20/18 1515:00 23:00 07:00 IntakeIntake Total 920 ml 140 ml OutputOutput Total 1100 ml 500 ml BalanceBalance -180 ml -360 ml Exam Constitutional: alert, oriented (Apparent distress) Head: normocephalic Respiratory: other (Coarse breath sounds bilaterally, no wheezing) Cardiovascular: irregular rhythm, other (S1-S2 heard) Gastrointestinal: soft, non-tender, ascites, bowel sounds, distended Extremities: edema Labs Result Diagram: 09/20/1852509/20/18525 Results 24hrs Laboratory Tests Test 09/19/18 17:11 09/19/18 20:36 09/20/18 02:24 09/20/18 05:25 Bedside Glucose 298 H 324 H 189 Prothrombin Time 17.6 H Prothrombin Time 1.4 Ratio INR International 1.44 Normalized Ratio Test 09/20/18 05:26 09/20/18 07:41 09/20/18 08:48 09/20/18 11:25 White Blood Count 5.6 Red Blood Count 4.66 Hemoglobin 11.8 L Hematocrit 38.5 Mean Corpuscular 82.6 Volume Mean Corpuscular 25.3 L Hemoglobin Mean Corpuscular 30.6 L Hemoglobin Concen t Red Cell 17.2 H Distribution Width Platelet Count 252 Mean Platelet 10.7 H Volume Immature 0.900 H Granulocytes % Neutrophils % 63.3 Lymphocytes % 21.4 Monocytes % 11.4 H Eosinophils % 2.3 Basophils % 0.7 Nucleated Red 0.0 Blood Cells % Immature 0.050 H Granulocytes # Neutrophils # 3.6 Lymphocytes # 1.2 Monocytes # 0.6 Eosinophils # 0.1 Basophils # 0.0 Nucleated Red 0.0 Blood Cells # Sodium Level 137 Potassium Level 4.0 Chloride Level 98 Carbon Dioxide 30 Level Anion Gap 9 Blood Urea 33 H Nitrogen Creatinine 1.01 H Est Glomerular 57 L Filtrat Rate mL/min Glucose Level 193 Calcium Level 9.3 Phosphorus Level 4.2 Magnesium Level 2.0 Bedside Glucose 197 275 H Lab Scanned BLOOD TRANSFUSIO Report N Medications Medications Current Medications IV Flush (NS 3 ml) 3 ml PER PROTOCOL IV ; Start 09/13/18 at 20:30 Ondansetron HCl (Zofran Inj) 4 mg Q6H PRN IV NAUSEA/VOMITING; Start 09/13/18 at 20:30 Acetaminophen (Tylenol Tab) 650 mg Q6H PRN PO .PAIN 1-3 OR TEMP Last administered on 09/19/18 23:51; Admin Dose 650 MG; Start 09/13/18 at 20:30 Acetaminophen/ Hydrocodone Bitart ([place] (5/325)) 1 tab Q6H PRN PO .PAIN 4-6 Last administered on 09/17/18 09:49; Admin Dose 1 TAB; Start 09/13/18 at 20:30 Docusate Sodium (Colace) 100 mg Q12H PRN PO .CONSTIPATION; Start 09/13/18 at 20:30 Bisacodyl (Dulcolax) 5 mg DAILY PRN PO .CONSTIPATION; Start 09/13/18 at 20:30 Loratadine (Claritin) 10 mg DAILY PO Last administered on 09/20/18 08:36; Admin Dose 10 MG; Start 09/14/18 at 09:00 Atorvastatin Calcium (Lipitor) 10 mg QHS PO Last administered on 09/19/18 20:42; Admin Dose 10 MG; Start 09/13/18 at 21:00 Insulin Aspart (Novolog Insulin Pen) NOVOLOG *MILD* ALGORITHM WITH MEALS BEDTIME SC Last administered on 09/20/18 11:38; Admin Dose 4 UNIT; Start 09/13/18 at 21:00 Carvedilol (Coreg) 6.25 mg BID PO Last administered on 09/19/18 08:18; Admin Dose 6.25 MG; Start 09/14/18 at 09:00; Status Hold Digoxin (Digoxin) 0.125 mg DAILY@1300 PO Last administered on 09/19/18 12:47; Admin Dose 0.125 MG; Start 09/14/18 at 13:00 Furosemide (Lasix) 40 mg BID DIURETICS IV Last administered on 09/20/18 06:31; Admin Dose 40 MG; Start 09/14/18 at 06:00 Ferrous Sulfate (Ferrous Sulfate (Ec)) 325 mg DAILY PO Last administered on 09/20/18 08:36; Admin Dose 325 MG; Start 09/14/18 at 09:00 Miscellaneous Information 1 ea NOTE XX ; Start 09/14/18 at 13:00 Glucose (Glutose) 15 gm Q15M PRN PO DECREASED GLUCOSE; Start 09/14/18 at 13:00 Glucose (Glutose) 22.5 gm Q15M PRN PO DECREASED GLUCOSE; Start 09/14/18 at 13:00 Dextrose (D50w Syringe) 25 ml Q15M PRN IV DECREASED GLUCOSE; Start 09/14/18 at 13:00 Dextrose (D50w Syringe) 50 ml Q15M PRN IV DECREASED GLUCOSE; Start 09/14/18 at 13:00 Glucagon (Glucagen) 1 mg Q15M PRN IM DECREASED GLUCOSE; Start 09/14/18 at 13:00 Glucose (Glutose) 15 gm Q15M PRN BUCCAL DECREASED GLUCOSE; Start 09/14/18 at 13:00 Spironolactone (Aldactone) 25 mg BID PO Last administered on 09/20/18 08:36; Admin Dose 25 MG; Start 09/14/18 at 21:00 Acetazolamide (Diamox) 500 mg DAILY IV Last administered on 09/17/18 08:29; Admin Dose 500 MG; Start 09/15/18 at 09:30; Status Hold Lisinopril (Zestril) 2.5 mg DAILY PO Last administered on 09/18/18at 09:00; Ad min Dose 2.5 MG; Start 09/16/18 at 09:00; Status Hold Sildenafil Citrate (Revatio) 20 mg TID PO Last administered on 09/19/18at 12:47; Admin Dose 20 MG; Start 09/18/18 at 13:00; Status Hold Linagliptin (Tradjenta) 5 mg DAILY PO Last administered on 09/20/18at 08:36; Admin Dose 5 MG; Start 09/18/18 at 13:00 Diagnostic Test (Pha) (Accu-Chek) 1 ea 02 XX Last administered on 09/20/18at 02:20; Admin Dose 1 EA; Start 09/19/18 at 02:00 Insulin Glargine (Lantus) 8 units DAILY@0800 SC Last administered on 09/20/18at 07:50; Admin Dose 8 UNITS; Start 09/20/18 at 08:00 Rodger Choi DO Sep 20, 2018 12:14
[2018-09-20] MEDS: DIGOXIN 0.125 MG TAB PO SCH (12:29)
--- NOTE | 2018-09-20 15:38 | CONS ---
Assessment/Plan Assessment/Plan Hospital Course (Demo Recall) Summary Assessment and Plan: Assessment: Liver cirrhosis-with ascites unclear etiology -Likely 2/2 to right sided heart failure -Viral hepatitis negative -R/o auto-immune vs other -Paracentesis x2 Acute decompensated left ventricular and right ventricular systolic failure Cardiomyopathy -EF 45% Severe pulmonary hypertension- pt on Sildenafil Atrial fibrillation- on Coumadin History of bioprosthetic mitral valve Diabetes Hypertension Plan: [place] HTN and liver cirrhosis are more common among women with auto-immune hepatitis- therefore we will check NAEL, ASMA, but to be thorough we will also obtain AMA although cirrhosis likely 2/2 to right sided hepatic congestion. Optimize treatment for ascites- 2 gm Na/Diuretics If recurrent or persistent ascites we would recommend TIPs procedure, however we do not do this at this facility. Diuretics by nephrology Continue to monitor labs Furth er recommendations based on clinical course. Patient Seen in collaboration with Dr. Blankenship CC: KYLEIGH BLANKENSHIP ; Consultation Date/Type/Reason Admit Date/Time Sep 13, 2018 at 18:52 Date of Consultation: Sep 20, 2018 Type of Consult GI Reason for Consultation Liver cirrhosis Date/Time of Note DATE: 09/20/18 TIME: 15:05 Hx of Present Illness This is a 53 year old female with PMH of Atrial fibrillation, Chronic kidney disease, diabetes, hypertension, CHF, previous mitral valve replacement who was admitted with shortness of breath diagnosed with severe pulmonary hypertension as well as some decompensated cardiomyopathy. During hospitalization imaging was obtained patient found to have liver cirrhosis thought secondary to right-si ded heart failure. GI has been consulted for further workup patient with large volume ascites she is status post paracentesis x2. Thus far viral hepatitis serology is negative LFTs were normal on the as well as on the . Currently pt is resting in bed. No c/o n./v or abd pain, she is s/p p aracentesis. She denies history of ETOH, or drug abuse. Will order additionally work-up for NEAL, ASMA, AMA. Review of Systems: A 12 system, review was conducted and is negative except as noted in the HPI or here. Past Medical History Home Meds Reported Medications Triamcinolone Acetonide* (Kenalog*) 0.1%-15GM Oint, 1 APPLIC TOP BID, #1 EA 09/13/18 Spironolactone* (Aldactone*) 25 Mg Tablet, 25 MG PO DAILY, #30 TAB 09/13/18 Simvastatin* (Zocor*) 20 Mg Tablet, 20 MG PO QHS, #30 TAB 09/13/18 Loratadine* (Loratadine*) 10 Mg Tablet, 10 MG PO DAILY, #30 TAB 09/13/18 Furosemide* (Furosemide*) 40 Mg Tablet, 40 MG PO TID, TAB 09/13/18 Sitagliptin* (Januvia*) 50 Mg Tablet, 50 MG PO DAILY, #30 TAB 09/13/18 Ferrous Sulfate* (Ferrous Sulfate*) 325 Mg Tabec, 325 MG PO DAILY, TAB 09/13/18 Digoxin* (Digitek*) 125 Mcg Tablet, 0.125 MG PO DAILY, TAB 09/13/18 Warfarin Sodium* (Coumadin*) 6 Mg Tablet, 6 MG PO DAILY, TAB 09/13/18 Carvedilol* (Carvedilol*) 6.25 Mg Tablet, 6.25 MG PO BID, #60 TAB 09/13/18 Insulin Glargine,Hum.rec.anlog (Basaglar Kwikpen U-100) 100 Unit/1 Ml Insuln.pen, 90 UNIT SC QHS, EA 09/13/18 Insulin Lispro (Humalog) 100 Unit/1 Ml Cartridge, 33 UNIT SQ WITH MEALS, EA 09/13/18 Discontinued Reported Medications Insulin Lispro (Humalog Kwikpen U-100) 100 Unit/1 Ml Insuln.pen, 10 UNIT SQ TID, EA 01/06/18 Insulin Glargine,Hum.rec.anlog (Cynthia Simth) 300 Unit/1 Ml Insuln.pen, 86 UNIT SQ QAM, EA 01/06/18 Carvedilol* (Carvedilol*) 25 Mg Tablet, 25 MG PO BID, #60 TAB 01/06/18 Digoxin* (Digitek*) 125 Mcg Tablet, 0.125 MG PO DAILY, TAB 01/06/18 Warfarin Sodium* (Jantoven*) 6 Mg Tablet, 6 MG PO DAILY, TAB 01/06/18 Sitagliptin* (Januvia*) 50 Mg Tablet, 50 MG PO DAILY, #30 TAB 01/06/18 Simvastatin* (Zocor*) 20 Mg Tablet, 20 MG PO QHS, #30 TAB 01/06/18 Levothyroxine Sodium* (Levothyroxine Sodium*) 50 Mcg Tablet, 50 MCG PO BEFORE BREAKFAST, #30 TAB 01/06/18 Furosemide* (Furosemide*) 40 Mg Tablet, 40 MG PO BID, TAB 01/06/18 Medications Current Medications IV Flush (NS 3 ml) 3 ml PER PROTOCOL IV ; Start 09/13/18 at 20:30 Ondansetron HCl (Zofran Inj) 4 mg Q6H PRN IV NAUSEA/VOMITING; Start 09/13/18 at 20:30 Acetaminophen (Tylenol Tab) 650 mg Q6H PRN PO .PAIN 1-3 OR TEMP Last admini stered on 09/19/18 23:51; Admin Dose 650 MG; Start 09/13/18 at 20:30 Acetaminophen/ Hydrocodone Bitart ([place] (5/325)) 1 tab Q6H PRN PO .PAIN 4-6 Last administered on 09/17/18 09:49; Admin Dose 1 TAB; Start 09/13/18 at 20:30 Docusate Sodium (Colace) 100 mg Q12H PRN PO .CONSTIPATION; Start 09/13/18 at 20:30 Bisacodyl (Dulcolax) 5 mg DAILY PRN PO .CONSTIPATION; Start 09/13/18 at 20:30 Loratadine (Claritin) 10 mg DAILY PO Last administered on 09/20/18 08:36; Admin Dose 10 MG; Start 09/14/18 at 09:00 Atorvastatin Calcium (Lipitor) 10 mg QHS PO Last administered on 09/19/18 20:42; Admin Dose 10 MG; Start 09/13/18 at 21:00 Insulin Aspart (Novolog Insulin Pen) NOVOLOG *MILD* ALGORITHM WITH MEALS BEDTIME SC Last administered on 09/20/18 11:38; Admin Dose 4 UNIT; Start 09/13/18 at 21:00 Carvedilol (Coreg) 6.25 mg BID PO Last administered on 09/19/18 08:18; Admin Dose 6.25 MG; Start 09/14/18 at 09:00; Status Hold Digoxin (Digoxin) 0.125 mg DAILY@1300 PO Last administered on 09/20/18 12:29; Admin Dose 0.125 MG; Start 09/14/18 at 13:00 Furosemide (Lasix) 40 mg BID DIURETICS IV Last administered on 09/20/18 06:31; Admin Dose 40 MG; Start 09/14/18 at 06:00 Ferrous Sulfate (Ferrous Sulfate (Ec)) 325 mg DAILY PO Last administered on 09/20/18 08:36; Admin Dose 325 MG; Start 09/14/18 at 09:00 Miscellaneous Information 1 ea NOTE XX ; Start 09/14/18 at 13:00 Glucose (Glutose) 15 gm Q15M PRN PO DECREASED GLUCOSE; Start 09/14/18 at 13:00 Glucose (Glutose) 22.5 gm Q15M PRN PO DECREASED GLUCOSE; Start 09/14/18 at 13:00 Dextrose (D50w Syringe) 25 ml Q15M PRN IV DECREASED GLUCOSE; Start 09/14/18 at 13:00 Dextrose (D50w Syringe) 50 ml Q15M PRN IV DECREASED GLUCOSE; Start 09/14/18 at 13:00 Glucagon (Glucagen) 1 mg Q15M PRN IM DECREASED GLUCOSE; Start 09/14/18 at 13:00 Glucose (Glutose) 15 gm Q15M PRN BUCCAL DECREASED GLUCOSE; Start 09/14/18 at 13:00 Spironolactone (Aldactone) 25 mg BID PO Last administered on 09/20/18 08:36; Admin Dose 25 MG; Start 09/14/18 at 21:00 Acetazolamide (Diamox) 500 mg DAILY IV Last administered on 09/17/18at 08:29; Admin Dose 500 MG; Start 09/15/18 at 09:30; Status Hold Lisinopril (Zestril) 2.5 mg DAILY PO Last administered on 09/18/18at 09:00; Admin Dose 2.5 MG; Start 09/16/18 at 09:00; Status Hold Sildenafil Citrate (Revatio) 20 mg TID PO Last administered on 09/19/18at 12:47; Admin Dose 20 MG; Start 09/18/18 at 13:00; Status Hold Linagliptin (Tradjenta) 5 mg DAILY PO Last administered on 09/20/18 08:36; Admin Dose 5 MG; Start 09/18/18 at 13:00 Diagnostic Test (Pha) (Accu-Chek) 1 ea 02 XX Last administered on 3/25/19at 02:20; Admin Dose 1 EA; Start 09/19/18 at 02:00 Insulin Glargine (Lantus) 8 units DAILY@0800 SC Last administered on 09/20/18at 07:50; Admin Dose 8 UNITS; Start 09/20/18 at 08:00 Allergies: Coded Allergies: morphine (Verified Allergy, Unknown, 09/13/18) Past Surgical History Past Surgical Hx: other (Including but not limited to bioprosthetic mitral valve replacement) Social History Alcohol Use: none Smoking Status: Never smoker Drug Use: none Exam/Review of Systems Exam Vitals Vital Signs Date Temp Pulse Resp B/P (MAP) Pulse Ox O2 O2 Flow FiO2 Time Delivery Rate 09/20/18 70 12:33 09/20/18 Nasal 4.0 11:24 Cannula 09/20/18 98.5 20 111/64 95 11:22 (80) Intake and Output 09/19/18 09/19/18 09/20/18 1515:00 23:00 07:00 IntakeIntake Total 920 ml 140 ml OutputOutput Total 1100 ml 500 ml BalanceBalance -180 ml -360 ml Exam PHYSICAL EXAMINATION: GENERAL: Alert & oriented x 3, in no acute distress SKIN: No lesions. EYES: Pupils equal reactive to light, no discharge. EARS/NOSE AND THROAT: Ears normal, nose normal, oropharynx normal NECK: Supple, no masses CHEST: Inspection within normal limits. CARDIOVASCULAR: Heart: Regular rate and rhythm RESPIRATORY: Lungs clear to auscultation GASTROINTESTINAL AND LIVER: Abdomen: Soft, non tenderness, non-distended, no hernias, no masses, no organomegaly, no ascites, no guarding, no rebound tenderness, normoactive bowel sounds. Rectal: Deferred. Results Result Diagram: 09/20/18 0509/20/18525 Results 24hrs Laboratory Tests Test 09/19/18 17:11 09/19/18 20:36 09/20/18 02:24 09/20/18 05:25 Bedside Glucose 298 H 324 H 189 Prothrombin Time 17.6 H Prothrombin Time 1.4 Ratio INR 1.44 International Normalized Ratio Test 09/20/18 05:26 09/20/18 07:41 09/20/18 08:48 09/20/18 10:20 White Blood 5.6 Count Red Blood Count 4.66 Hemoglobin 11.8 L Hematocrit 38.5 Mean Corpuscular 82.6 Volume Mean Corpuscular 25.3 L Hemoglobin Mean Corpuscular 30.6 L Hemoglobin Christianne nt Red Cell 17.2 H Distribution Width Platelet Count 252 Mean Platelet 10.7 H Volume Immature 0.900 H Granulocytes % Neutrophils % 63.3 Lymphocytes % 21.4 Monocytes % 11.4 H Eosinophils % 2.3 Basophils % 0.7 Nucleated Red 0.0 Blood Cells % Immature 0.050 H Granulocytes # Neutrophils # 3.6 Lymphocytes # 1.2 Monocytes # 0.6 Eosinophils # 0.1 Basophils # 0.0 Nucleated Red 0.0 Blood Cells # Sodium Level 137 Potassium Level 4.0 Chloride Level 98 Carbon Dioxide 30 Level Anion Gap 9 Blood Urea 33 H Nitrogen Creatinine 1.01 H Est Glomerular 57 L Filtrat Rate mL/min Glucose Level 193 Calcium Level 9.3 Phosphorus Level 4.2 Magnesium Level 2.0 Bedside Glucose 197 Lab Scanned BLOOD TRANSFUSI Report ON Body Fluid Type PARACENTHESIS Body Fluid 1050.0 Volume Body Fluid Color RED Body Fluid CLOUDY Appearance Body Fluid WBC 317 Body Fluid RBC 48013 (Auto) Body Fluid 13.3 Polynuclear WBCs (%) Body Fluid 86.7 Mononuclear Cells % Auto Body Fluid Total 4.5 Protein Body Fluid 240 Lactate Dehydrog enase Test 09/20/18 11:25 Bedside Glucose 275 H Medications Medication Current Medications IV Flush (NS 3 ml) 3 ml PER PROTOCOL IV ; Start 09/13/18 at 20:30 Ondansetron HCl (Zofran Inj) 4 mg Q6H PRN IV NAUSEA/VOMITING; Start 09/13/18 at 20:30 Acetaminophen (Tylenol Tab) 650 mg Q6H PRN PO .PAIN 1-3 OR TEMP Last administered on 09/19/18at 23:51; Admin Dose 650 MG; Start 09/13/18 at 20:30 Acetaminophen/ Hydrocodone Bitart ([place] (5/325)) 1 tab Q6H PRN PO .PAIN 4-6 Last administered on 09/17/18at 09:49; Admin Dose 1 TAB; Start 09/13/18 at 20:30 Docusate Sodium (Colace) 100 mg Q12H PRN PO .CONSTIPATION; Start 09/13/18 at 20:30 Bisacodyl (Dulcolax) 5 mg DAILY PRN PO .CONSTIPATION; Start 09/13/18 at 20:30 Loratadine (Claritin) 10 mg DAILY PO Last administered on 09/20/18 08:36; Admin Dose 10 MG; Start 09/14/18 at 09:00 Atorvastatin Calcium (Lipitor) 10 mg QHS PO Last administered on 09/19/18 20:42; Admin Dose 10 MG; Start 09/13/18 at 21:00 Insulin Aspart (Novolog Insulin Pen) NOVOLOG *MILD* ALGORITHM WITH MEALS BEDTIME SC Last administered on 09/20/18 11:38; Admin Dose 4 UNIT; Start 09/13/18 at 21:00 Carvedilol (Coreg) 6.25 mg BID PO Last administered on 09/19/18 08:18; Admin Dose 6.25 MG; Start 09/14/18 at 09:00; Status Hold Digoxin (Digoxin) 0.125 mg DAILY@1300 PO Last administered on 09/20/18 12:29; Admin Dose 0.125 MG; Start 09/14/18 at 13:00 Furosemide (Lasix) 40 mg BID DIURETICS IV Last administered on 09/20/18 06:31; Admin Dose 40 MG; Start 09/14/18 at 06:00 Ferrous Sulfate (Ferrous Sulfate (Ec)) 325 mg DAILY PO Last administered on 09/20/18 08:36; Admin Dose 325 MG; Start 09/14/18 at 09:00 Miscellaneous Information 1 ea NOTE XX ; Start 09/14/18 at 13:00 Glucose (Glutose) 15 gm Q15M PRN PO DECREASED GLUCOSE; Start 09/14/18 at 13:00 Glucose (Glutose) 22.5 gm Q15M PRN PO DECREASED GLUCOSE; Start 09/14/18 at 13:00 Dextrose (D50w Syringe) 25 ml Q15M PRN IV DECREASED GLUCOSE; Start 09/14/18 at 13:00 Dextrose (D50w Syringe) 50 ml Q15M PRN IV DECREASED GLUCOSE; Start 09/14/18 at 13:00 Glucagon (Glucagen) 1 mg Q15M PRN IM DECREASED GLUCOSE; Start 09/14/18 at 13:00 Glucose (Glutose) 15 gm Q15M PRN BUCCAL DECREASED GLUCOSE; Start 09/14/18 at 13:00 Spironolactone (Aldactone) 25 mg BID PO Last administered on 09/20/18 08:36; Admin Dose 25 MG; Start 09/14/18 at 21:00 Acetazolamide (Diamox) 500 mg DAILY IV Last administered on 09/17/18 08:29; Admin Dose 500 MG; Start 09/15/18 at 09:30; Status Hold Lisinopril (Zestril) 2.5 mg DAILY PO Last administered on 09/18/18 09:00; Admin Dose 2.5 MG; Start 09/16/18 at 09:00; Status Hold Sildenafil Citrate (Revatio) 20 mg TID PO Last administered on 09/19/18 12:47; Admin Dose 20 MG; Start 09/18/18 at 13:00; Status Hold Linagliptin (Tradjenta) 5 mg DAILY PO Last administered on 09/20/18 08:36; Admin Dose 5 MG; Start 09/18/18 at 13:00 Diagnostic Test (Pha) (Accu-Chek) 1 ea 02 XX Last administered on 09/20/18 02:20; Admin Dose 1 EA; Start 09/19/18 at 02:00 Insulin Glargine (Lantus) 8 units DAILY@0800 SC Last administered on 09/20/18 07:50; Admin Dose 8 UNITS; Start 09/20/18 at 08:00 MARCIN RODRIGUEZ Sep 20, 2018 15:15
[2018-09-20] MEDS ORDERED: WARFARIN 5 MG TAB PO SCH (17:00)
[2018-09-20] MEDS: ATORVASTATIN 10 MG TAB PO SCH (21:53)
[2018-09-21] VITALS (12 sets, daily range): BP systolic 111–117; BP diastolic 50–62; PULSE 75–85; RESP 17–19
[2018-09-21] MEDS: ACCU-CHEK XX SCH (02:00)
[2018-09-21] MEDS: FUROSEMIDE 40 MG INJ IV SCH (06:04)
[2018-09-21] MEDS: INSULIN ASPART [NOVOLOG] 3 ML PEN SC SCH ×4 (07:49→22:22)
[2018-09-21] MEDS: SPIRONOLACTONE 25 MG TAB PO SCH ×2 (08:02→21:45)
[2018-09-21] MEDS: FERROUS SULFATE (EC) 325 MG TAB PO SCH (08:02)
[2018-09-21] MEDS: LINAGLIPTIN 5 MG TABLET PO SCH (08:02)
[2018-09-21] MEDS: LORATADINE 10 MG TAB PO SCH (08:05)
[2018-09-21] MEDS: INSULIN GLARGINE [LANTus] (100 UNITS/ML) SYG SC SCH (08:09)
--- NOTE | 2018-09-21 10:05 | PN ---
DATE: 09/21/2018 SUBJECTIVE: The patient had paracentesis yesterday with 5 liters removed. No other events noted. OBJECTIVE: VITAL SIGNS: Blood pressure is 112/53, pulse 81, respirations 17, temperature 98.5. HEENT: Head is normocephalic. NECK: Supple. HEART: Regular rate. LUNGS: Show diminished breath sounds at the base. ABDOMEN: Soft, nontender to palpation. No rebound or guarding. EXTREMITIES: Negative for clubbing, cyanosis, no edema. DERMATOLOGIC: No rashes. MUSCULOSKELETAL: No joint effusion. NEUROLOGIC: No change in exam. MEDICATIONS: Reviewed. LABORATORY DATA: From 09/21/2018 was reviewed. ASSESSMENT AND PLAN: 1. Acute decompensated right-sided heart failure. The patient is clinically improving. We will con tinue current diuretic regimen and Aldactone. We will change Lasix to oral Bumex. Monitor I's and O 's closely. Also, we will discontinue Diamox. 2. Hypertension. Continue sildenafil. 3. Cirrhosis with ascites. The patient is status post paracentesis yesterday with approximately 4 l iters removed. Renal function is stable. Continue to monitor. 4. Chronic atrial fibrillation. Continue medical management. 5. History of valve replacement. 6. Dyslipidemia. Continue statin therapy. 7. Nonoliguric acute kidney injury. Etiology is secondary to hemodynamics. Renal function is stabi lized. We will continue Aldactone. We will adjust diuretic therapy. 8. Diabetes. Continue current insulin regimen. 9. Dyslipidemia. Continue statin therapy. 10. Hypertension. Continue current blood pressure regimen. Dictated By: JANINA PINEDA/NTS Conf#: [id number] DID#: [id number] CC: REBA FERREIRA MD; ELIAS GONSALEZ;*EndCC*
--- NOTE | 2018-09-21 10:25 | PN ---
Date/Time of Note Date/Time of Note DATE: 09/21/18 TIME: 10:19 Assessment/Plan VTE Prophylaxis Risk score (from [facility] [place]0 risk: 2 SCD applied (from [facility] [place]): No SCD contraindicated: other Pharmacological prophylaxis: NA/contraindicated Pharm contraindication: low risk/ambulating, liver dx Lines/Catheters IV Catheter Type (from [facility]): Saline Lock Urinary Cath still in place: No Assessment/Plan Hospital Course SUBJECTIVE: Patient feels much better today she had paracentesis yesterday. She is been ambulating and tolerating diet. OBJECTIVE: Vital signs-see below PHYSICAL EXAM: Constitutional: Well-developed, adequately built, lying in bed comfortably. Psych: nl mood/affect, no complaints Head: atraumatic, normocephalic Eyes: nl conjunctiva, nl sclera ENMT: mucosa pink and moist, nl external ears & nose Neck: non-tender, supple Respiratory: clear to auscultation, normal air movement Cardiovascular: nl pulses, regular rate and rhythm Gastrointestinal: +Ascites. non-tender, soft, bowel sounds active in all 4 quadrants. Musculoskeletal/extremities: nl extremities to inspection, motor strength equal bilaterally, no focal deficit. Normal pulses,no cyanosis, no edema. Neurological: Alert oriented 3,nl speech, nl strength Skin: nl turgor ASSESSMENT/PLAN:53 yo morbidly obese f w/cm,Hf,mvr,ascites, here w/worsening sob,ascites,anasarca.. 1. Acute decompensated systolic heart failure. -Improving nicely. -Appreciate cardiology recommendations. Continue medical management/diuretics/Aldactone/ACEi 2.Liver cirrhosis w/ Large volume ascites -s/p paracentesis 08/28 w/ 9L => fluid studies did not sent for unclear reason. S/ p paracentesis again 09/20=> initial fluid analysis does not look infected. Follow-up cytology/microbiology studies. -Continue diuresis/Aldactone. -Follow-up GI Recs=> TIPS if she fails medical mgmt in the future.. 3. Pulmonary hypertension -On treatment with sildenafil -This definitely warrants outpatient follow-up/treatment modalities in context of ascites.. -pulmonary consult requested 09/20 4. Atrial fibrillation -Unable to tolerate beta-blockers secondary to hypotension. Currently on digoxin for rate control. Not a candidate for anticoagulation. -Follow-up cardiology recommendations. 5. Essential hypertension. -Adequate control. Continue antihypertensives. 6. Type 2 diabetes. -Needs more control, will increase Lantus to 15 units. -Continue Accu-Cheks/sliding scale. We will continue to monitor and will adjust dose accordingly. 7. Hyperlipidemia. -On appropriate statin dose. 8. History of mitral valve replacement surgery. DVT prophylaxis: SCDs PUD prophylaxis: Not indicated CODE STATUS: Full code Diet: Carbohydrate controlled/2 g sodium diet with fluid restriction 1200 cc. Disposition: Continue current management. Await for paracentesis fluid studies. Follow-up cardiology/gi/pulmonary recommendations. Plan to return home once clinically improved further. Patient was seen in collaboration with Result Diagram: 09/21/1846 09/21/18 0546 Results 24hrs Laboratory Tests Test 09/20/18 10:20 09/20/18 11:25 09/20/18 17:17 09/20/18 21:52 Body Fluid Type PARACENTHESIS Body Fluid Volume 1050.0 Body Fluid Color RED Body Fluid CLOUDY Appearance Body Fluid WBC 317 Body Fluid RBC 93025 (Auto) Body Fluid 13.3 Polynuclear WBCs (%) Body Fluid 86.7 Mononuclear Cells % Auto Body Fluid Total 4.5 Protein Body Fluid 240 Lactate Dehydrogen ase Bedside Glucose 275 H 279 H 239 H Test 09/21/18 05:46 09/21/18 07:44 White Blood Count 5.1 Red Blood Count 4.64 Hemoglobin 11.8 L Hematocrit 38.6 Mean Corpuscular 83.2 Volume Mean Corpuscular 25.4 L Hemoglobin Mean Corpuscular 30.6 L Hemoglobin Concent Red Cell 17.1 H Distribution Width Platelet Count 259 Mean Platelet 10.9 H Volume Immature 0.600 H Granulocytes % Neutrophils % 59.2 Lymphocytes % 22.0 Monocytes % 14.1 H Eosinophils % 3.3 Basophils % 0.8 Nucleated Red 0.0 Blood Cells % Immature 0.030 Granulocytes # Neutrophils # 3.0 Lymphocytes # 1.1 Monocytes # 0.7 Eosinophils # 0.2 Basophils # 0.0 Nucleated Red 0.0 Blood Cells # Sodium Level 137 Potassium Level 4.3 Chloride Level 94 L Carbon Dioxide 31 Level Anion Gap 12 Blood Urea 27 H Nitrogen Creatinine 0.88 Est Glomerular > 60 Filtrat Rate mL/min Glucose Level 204 Calcium Level 9.4 Total Bilirubin 0.7 Direct Bilirubin 0.00 Indirect Bilirubin 0.7 Aspartate Amino 23 Transf (AST/SGOT) Alanine 14 Aminotransferase ( ALT/SGPT) Alkaline 108 Phosphatase Total Protein 6.8 Albumin 3.7 Globulin 3.10 Albumin/Globulin 1.19 Ratio Bedside Glucose 203 Exam/Review of Systems Exam Vitals Vital Signs Date Temp Pulse Resp B/P (MAP) Pulse Ox O2 O2 Flow FiO2 Time Delivery Rate 09/21/18 81 08:12 09/21/18 98.5 17 112/53 94 07:26 (72) 09/20/18 Nasal 4.0 11:24 Cannula Intake and Output 09/20/18 09/20/18 09/21/18 1515:00 23:00 07:00 IntakeIntake Total 250 ml 300 ml OutputOutput Total 1100 ml 800 ml BalanceBalance -850 ml -500 ml Results Results 24hrs Laboratory Tests Test 09/20/18 10:20 09/20/18 11:25 09/20/18 17:17 09/20/18 21:52 Body Fluid Type PARACENTHESIS Body Fluid Volume 1050.0 Body Fluid Color RED Body Fluid CLOUDY Appearance Body Fluid WBC 317 Body Fluid RBC 22320 (Auto) Body Fluid 13.3 Polynuclear WBCs (%) Body Fluid 86.7 Mononuclear Cells % Auto Body Fluid Total 4.5 Protein Body Fluid 240 Lactate Dehydrogen ase Bedside Glucose 275 H 279 H 239 H Test 09/21/18 05:46 09/21/18 07:44 White Blood Count 5.1 Red Blood Count 4.64 Hemoglobin 11.8 L Hematocrit 38.6 Mean Corpuscular 83.2 Volume Mean Corpuscular 25.4 L Hemoglobin Mean Corpuscular 30.6 L Hemoglobin Concent Red Cell 17.1 H Distribution Width Platelet Count 259 Mean Platelet 10.9 H Volume Immature 0.600 H Granulocytes % Neutrophils % 59.2 Lymphocytes % 22.0 Monocytes % 14.1 H Eosinophils % 3.3 Basophils % 0.8 Nucleated Red 0.0 Blood Cells % Immature 0.030 Granulocytes # Neutrophils # 3.0 Lymphocytes # 1.1 Monocytes # 0.7 Eosinophils # 0.2 Basophils # 0.0 Nucleated Red 0.0 Blood Cells # Sodium Level 137 Potassium Level 4.3 Chloride Level 94 L Carbon Dioxide 31 Level Anion Gap 12 Blood Urea 27 H Nitrogen Creatinine 0.88 Est Glomerular > 60 Filtrat Rate mL/min Glucose Level 204 Calcium Level 9.4 Total Bilirubin 0.7 Direct Bilirubin 0.00 Indirect Bilirubin 0.7 Aspartate Amino 23 Transf (AST/SGOT) Alanine 14 Aminotransferase ( ALT/SGPT) Alkaline 108 Phosphatase Total Protein 6.8 Albumin 3.7 Globulin 3.10 Albumin/Globulin 1.19 Ratio Bedside Glucose 203 Medications Medication Current Medications IV Flush (NS 3 ml) 3 ml PER PROTOCOL IV ; Start 09/13/18 at 20:30 Ondansetron HCl (Zofran Inj) 4 mg Q6H PRN IV NAUSEA/VOMITING; Start 09/13/18 at 20:30 Acetaminophen (Tylenol Tab) 650 mg Q6H PRN PO .PAIN 1-3 OR TEMP Last administered on 09/19/18 23:51; Admin Dose 650 MG; Start 09/13/18 at 20:30 Acetaminophen/ Hydrocodone Bitart ([place] (5/325)) 1 tab Q6H PRN PO .PAIN 4-6 Last administered on 09/17/18 09:49; Admin Dose 1 TAB; Start 09/13/18 at 20:30 Docusate Sodium (Colace) 100 mg Q12H PRN PO .CONSTIPATION; Start 09/13/18 at 20:30 Bisacodyl (Dulcolax) 5 mg DAILY PRN PO .CONSTIPATION; Start 09/13/18 at 20:30 Loratadine (Claritin) 10 mg DAILY PO Last administered on 09/21/18 08:05; Admin Dose 10 MG; Start 09/14/18 at 09:00 Atorvastatin Calcium (Lipitor) 10 mg QHS PO Last administered on 09/20/18 21:53; Admin Dose 10 MG; Start 09/13/18 at 21:00 Insulin Aspart (Novolog Insulin Pen) NOVOLOG *MILD* ALGORITHM WITH MEALS BEDTIME SC Last administered on 09/21/18 07:49; Admin Dose 2 UNIT; Start 09/13/18 at 21:00 Carvedilol (Coreg) 6.25 mg BID PO Last administered on 09/19/18 08:18; Admin Dose 6.25 MG; Start 09/14/18 at 09:00; Status Hold Digoxin (Digoxin) 0.125 mg DAILY@1300 PO Last administered on 09/20/18 12:29; Admin Dose 0.125 MG; Start 09/14/18 at 13:00 Ferrous Sulfate (Ferrous Sulfate (Ec)) 325 mg DAILY PO Last administered on 09/21/18at 08:02; Admin Dose 325 MG; Start 09/14/18 at 09:00 Miscellaneous Information 1 ea NOTE XX ; Start 09/14/18 at 13:00 Glucose (Glutose) 15 gm Q15M PRN PO DECREASED GLUCOSE; Start 09/14/18 at 13:00 Glucose (Glutose) 22.5 gm Q15M PRN PO DECREASED GLUCOSE; Start 09/14/18 at 13:00 Dextrose (D50w Syringe) 25 ml Q15M PRN IV DECREASED GLUCOSE; Start 09/14/18 at 13:00 Dextrose (D50w Syringe) 50 ml Q15M PRN IV DECREASED GLUCOSE; Start 09/14/18 at 13:00 Glucagon (Glucagen) 1 mg Q15M PRN IM DECREASED GLUCOSE; Start 09/14/18 at 13:00 Glucose (Glutose) 15 gm Q15M PRN BUCCAL DECREASED GLUCOSE; Start 09/14/18 at 13:00 Spironolactone (Aldactone) 25 mg BID PO Last administered on 09/21/18at 08:02; Admin Dose 25 MG; Start 09/14/18 at 21:00 Lisinopril (Zestril) 2.5 mg DAILY PO Last administered on 09/18/18at 09:00; Admin Dose 2.5 MG; Start 09/16/18 at 09:00; Status Hold Sildenafil Citrate (Revatio) 20 mg TID PO Last administered on 09/19/18at 12:47; Admin Dose 20 MG; Start 09/18/18 at 13:00; Status Hold Linagliptin (Tradjenta) 5 mg DAILY PO Last administered on 09/21/18 08:02; Admin Dose 5 MG; Start 09/18/18 at 13:00 Diagnostic Test (Pha) (Accu-Chek) 1 ea 02 XX Last administered on 09/20/18at 02:20; Admin Dose 1 EA; Start 09/19/18 at 02:00 Warfarin Sodium (Coumadin) 5 mg DAILY@17 PO Last administered on 09/20/18at 17:00; Admin Dose 5 MG; Start 09/20/18 at 17:00 Bumetanide (Bumex) 1 mg BID DIURETICS PO ; Start 09/21/18 at 18:00 Insulin Glargine (Lantus) 15 units DAILY@0800 SC ; Start 09/22/18 at 08:00; Status UNV Insulin Glargine (Lantus) 7 units ONCE ONCE SC ; Start 09/21/18 at 10:30; Stop 09/21/18 at 10:31; Status UNV ANCA BURT NP Sep 21, 2018 10:25
[2018-09-21] MEDS ORDERED: INSULIN GLARGINE [LANTus] (100 UNITS/ML) SYG SC ONE (11:00)
--- NOTE | 2018-09-21 11:30 | PN ---
Date/Time of Note Date/Time of Note DATE: 09/21/18 TIME: : Assessment/Plan VTE Prophylaxis Risk score (from [facility])>0 risk: 2 SCD applied (from [facility]): No SCD contraindicated: other (scds) Pharmacological prophylaxis: other (scds) Lines/Catheters [facility]from [facility] Saline Lock Urinary Cath still in place: No Assessment/Plan Hospital Course Summary Assessment and Plan: Assessment: Liver cirrhosis-with ascites unclear etiology -Likely 2/2 to right sided heart failure -Viral hepatitis negative -R/o auto-immune vs other -Paracentesis x2 Acute decompensated left ventricular and right ventricular systolic failure Cardiomyopathy -EF 45% Severe pulmonary hypertension- pt on Sildenafil Atrial fibrillation- on Coumadin History of bioprosthetic mitral valve Diabetes Hypertension Plan: NEAL, AMA ASMA pending Optimize treatment for ascites- 2 gm Na/Diuretics Diuretics per nephrology Continue to monitor labs D/c per hospitalist once medically optimized- pt to f/u with GI as an out-pt - will unlikely be a candidate for liver transplant given her medical history, however we will assess this option as an out-pt- if not a candidate ascites is e stablished as recurrent- we would recommend and evaluate for TIPs Patient Seen in collaboration with Dr. Crowe Subjective: Course reviewed with nursing staff Patient interviewed and examined All labs, imaging and other results reviewed The patient resting in bed, no c/o n/v or abd pain Bm yesterday, no overt signs of GI bleed. pt states edema is improving. PHYSICAL EXAMINATION: GENERAL: Alert & oriented x 3, in no acute distress SKIN: No lesions. EYES: Pupils equal reactive to light, no discharge. EARS/NOSE AND THROAT: Ears normal, nose normal, oropharynx normal NECK: Supple, no masses CHEST: Inspection within normal limits. CARDIOVASCULAR: Heart: Regular rate and rhythm RESPIRATORY: Lungs clear to auscultation GASTROINTESTINAL AND LIVER: Abdomen: Soft, non tenderness, distended, no he rnias, no masses, no organomegaly, ascites, no guarding, no rebound tenderness, normoactive bowel sounds. Rectal: Deferred. Result Diagram: 09/21/18 0546 09/21/18 0546 Results 24hrs Laboratory Tests Test 09/20/18 17:17 09/20/18 21:52 09/21/18 05:46 09/21/18 07:44 Bedside Glucose 279 H 239 H 203 White Blood Count 5.1 Red Blood Count 4.64 Hemoglobin 11.8 L Hematocrit 38.6 Mean Corpuscular 83.2 Volume Mean Corpuscular 25.4 L Hemoglobin Mean Corpuscular 30.6 L Hemoglobin Concent Red Cell 17.1 H Distribution Width Platelet Count 259 Mean Platelet Volume 10.9 H Immature 0.600 H Granulocytes % Neutrophils % 59.2 Lymphocytes % 22.0 Monocytes % 14.1 H Eosinophils % 3.3 Basophils % 0.8 Nucleated Red Blood 0.0 Cells % Immature 0.030 Granulocytes # Neutrophils # 3.0 Lymphocytes # 1.1 Monocytes # 0.7 Eosinophils # 0.2 Basophils # 0.0 Nucleated Red Blood 0.0 Cells # Sodium Level 137 Potassium Level 4.3 Chloride Level 94 L Carbon Dioxide Level 31 Anion Gap 12 Blood Urea Nitrogen 27 H Creatinine 0.88 Est Glomerular > 60 Filtrat Rate mL/min Glucose Level 204 Calcium Level 9.4 Total Bilirubin 0.7 Direct Bilirubin 0.00 Indirect Bilirubin 0.7 Aspartate Amino 23 Transf (AST/SGOT) Alanine 14 Aminotransferase (AL T/SGPT) Alkaline Phosphatase 108 Total Protein 6.8 Albumin 3.7 Globulin 3.10 Albumin/Globulin 1.19 Ratio Exam/Review of Systems Exam Vitals Vital Signs Date Temp Pulse Resp B/P (MAP) Pulse Ox O2 O2 Flow FiO2 Time Delivery Rate 09/21/18 97.9 82 18 117/59 93 11:18 (78) 09/20/18 Nasal 4.0 11:24 Cannula Intake and Output 09/20/18 09/20/18 09/21/18 1515:00 23:00 07:00 IntakeIntake Total 250 ml 300 ml OutputOutput Total 1100 ml 800 ml BalanceBalance -850 ml -500 ml Results Results 24hrs Laboratory Tests Test 09/20/18 17:17 09/20/18 21:52 09/21/18 05:46 09/21/18 07:44 Bedside Glucose 279 H 239 H 203 White Blood Count 5.1 Red Blood Count 4.64 Hemoglobin 11.8 L Hematocrit 38.6 Mean Corpuscular 83.2 Volume Mean Corpuscular 25.4 L Hemoglobin Mean Corpuscular 30.6 L Hemoglobin Concent Red Cell 17.1 H Distribution Width Platelet Count 259 Mean Platelet Volume 10.9 H Immature 0.600 H Granulocytes % Neutrophils % 59.2 Lymphocytes % 22.0 Monocytes % 14.1 H Eosinophils % 3.3 Basophils % 0.8 Nucleated Red Blood 0.0 Cells % Immature 0.030 Granulocytes # Neutrophils # 3.0 Lymphocytes # 1.1 Monocytes # 0.7 Eosinophils # 0.2 Basophils # 0.0 Nucleated Red Blood 0.0 Cells # Sodium Level 137 Potassium Level 4.3 Chloride Level 94 L Carbon Dioxide Level 31 Anion Gap 12 Blood Urea Nitrogen 27 H Creatinine 0.88 Est Glomerular > 60 Filtrat Rate mL/min Glucose Level 204 Calcium Level 9.4 Total Bilirubin 0.7 Direct Bilirubin 0.00 Indirect Bilirubin 0.7 Aspartate Amino 23 Transf (AST/SGOT) Alanine 14 Aminotransferase (AL T/SGPT) Alkaline Phosphatase 108 Total Protein 6.8 Albumin 3.7 Globulin 3.10 Albumin/Globulin 1.19 Ratio Medications Medication Current Medications IV Flush (NS 3 ml) 3 ml PER PROTOCOL IV ; Start 09/13/18 at 20:30 Ondansetron HCl (Zofran Inj) 4 mg Q6H PRN IV NAUSEA/VOMITING; Start 09/13/18 at 20:30 Acetaminophen (Tylenol Tab) 650 mg Q6H PRN PO .PAIN 1-3 OR TEMP Last administered on 09/19/18at 23:51; Admin Dose 650 MG; Start 09/13/18 at 20:30 Acetaminophen/ Hydrocodone Bitart ([place] (5/325)) 1 tab Q6H PRN PO .PAIN 4-6 Last administered on 09/17/18 09:49; Admin Dose 1 TAB; Start 09/13/18 at 20:30 Docusate Sodium (Colace) 100 mg Q12H PRN PO .CONSTIPATION; Start 09/13/18 at 20:30 Bisacodyl (Dulcolax) 5 mg DAILY PRN PO .CONSTIPATION; Start 09/13/18 at 20:30 Loratadine (Claritin) 10 mg DAILY PO Last administered on 09/21/18at 08:05; Admin Dose 10 MG; Start 09/14/18 at 09:00 Atorvastatin Calcium (Lipitor) 10 mg QHS PO Last administered on 09/20/18at 21:53; Admin Dose 10 MG; Start 09/13/18 at 21:00 Insulin Aspart (Novolog Insulin Pen) NOVOLOG *MILD* ALGORITHM WITH MEALS BEDTIME SC Last administered on 09/21/18 07:49; Admin Dose 2 UNIT; Start 09/13/18 at 21:00 Carvedilol (Coreg) 6.25 mg BID PO Last administered on 09/19/18 08:18; Admin Dose 6.25 MG; Start 09/14/18 at 09:00; Status Hold Digoxin (Digoxin) 0.125 mg DAILY@1300 PO Last administered on 09/20/18 12:29; Admin Dose 0.125 MG; Start 09/14/18 at 13:00 Ferrous Sulfate (Ferrous Sulfate (Ec)) 325 mg DAILY PO Last administered on 09/21/18 08:02; Admin Dose 325 MG; Start 09/14/18 at 09:00 Miscellaneous Information 1 ea NOTE XX ; Start 09/14/18 at 13:00 Glucose (Glutose) 15 gm Q15M PRN PO DECREASED GLUCOSE; Start 09/14/18 at 13:00 Glucose (Glutose) 22.5 gm Q15M PRN PO DECREASED GLUCOSE; Start 09/14/18 at 13:00 Dextrose (D50w Syringe) 25 ml Q15M PRN IV DECREASED GLUCOSE; Start 09/14/18 at 13:00 Dextrose (D50w Syringe) 50 ml Q15M PRN IV DECREASED GLUCOSE; Start 09/14/18 at 13:00 Glucagon (Glucagen) 1 mg Q15M PRN IM DECREASED GLUCOSE; Start 09/14/18 at 13:00 Glucose (Glutose) 15 gm Q15M PRN BUCCAL DECREASED GLUCOSE; Start 09/14/18 at 13:00 Spironolactone (Aldactone) 25 mg BID PO Last administered on 09/21/18 08:02; Admin Dose 25 MG; Start 09/14/18 at 21:00 Lisinopril (Zestril) 2.5 mg DAILY PO Last administered on 09/18/18 09:00; Admin Dose 2.5 MG; Start 09/16/18 at 09:00; Status Hold Sildenafil Citrate (Revatio) 20 mg TID PO Last administered on 09/19/18 12:47; Admin Dose 20 MG; Start 09/18/18 at 13:00; Status Hold Linagliptin (Tradjenta) 5 mg DAILY PO Last administered on 3/26/19at 08:02; Admin Dose 5 MG; Start 09/18/18 at 13:00 Diagnostic Test (Pha) (Accu-Chek) 1 ea 02 XX Last administered on 09/20/18at 02:20; Admin Dose 1 EA; Start 09/19/18 at 02:00 Warfarin Sodium (Coumadin) 5 mg DAILY@17 PO Last administered on 09/20/18at 17:00; Admin Dose 5 MG; Start 09/20/18 at 17:00 Bumetanide (Bumex) 1 mg BID DIURETICS PO ; Start 09/21/18 at 18:00 Insulin Glargine (Lantus) 15 units DAILY@0800 SC ; Start 09/22/18 at 08:00 MARCIN RODRIGUEZ Sep 21, 2018 11:30
[2018-09-21] MEDS: DIGOXIN 0.125 MG TAB PO SCH (12:19)
--- NOTE | 2018-09-21 12:56 | CONS ---
DATE OF ADMISSION: 09/13/2018 DATE OF CONSULTATION: REASON FOR CONSULT: Shortness of breath. HISTORY OF PRESENT ILLNESS: This is an unfortunate 53-year-old lady with history of liver cirrhosis of unclear etiology with subsequent pulmonary hypertension, currently requiring frequent paracenteses with evidence of decompensated right heart failure and complicated by atrial fibrillation on anticoa gulation. The patient has a history of bioprosthetic mitral valve. PAST MEDICAL HISTORY: Chronic atrial fibrillation on anticoagulation, pulmonary hypertension, diabet es mellitus and cirrhosis. PAST MEDICAL HISTORY: As above. MEDICATIONS: Per chart. ALLERGIES: None. SOCIAL HISTORY: Nonsmoker, no alcohol, no history of drug use. FAMILY HISTORY: Noncontributory. SYSTEMS REVIEW: A 12-point review of systems was negative other than that mentioned. PHYSICAL EXAMINATION: GENERAL: Well-nourished, well-developed lady with significant ascites. VITAL SIGNS: Currently afebrile, pulse is 80, blood pressure 117/60, O2 saturation 96%, FIO2 of 4 li ters. NECK: Supple. No JVD or lymphadenopathy. CARDIAC: S1, S2, no added sounds or murmurs. CHEST: Diminished air entry bilaterally. ABDOMEN: Soft, nontender. No guarding or rebound, obese. EXTREMITIES: No cyanosis, clubbing or edema. NEUROLOGIC: Generalized weakness. LABORATORY DATA: White count 5.1, hemoglobin 11.8. BUN 27, creatinine 0.88. AST, ALT within normal limits. Alkaline phosphatase mildly elevated, INR 1.44. Hepatitis serology unremarkable. IMPRESSION AND PLAN: 1. History of valvular heart disease with pulmonary hypertension. 2. Chronic atrial fibrillation. 3. Cirrhosis with recurrent ascites. 4. Severe pulmonary hypertension as noted. The patient will require: 1. Continued paracentesis. 2. Resumption of anticoagulation followed by synthetic prosthetic valve. 3. Now initiated on sildenafil for pulmonary hypertension. 4. Consider referral to tertiary care center as patient has complicated cardiopulmonary and liver di sease which would require coordinated care and possible evaluation for liver transplant. Dictated By: ZORA BARNHART MD SV/SULTANA Conf#: [id number] DID#: [id number] CC: REBA FERREIRA MD;*EndCC*
--- NOTE | 2018-09-21 16:37 | CONS ---
Assessment/Plan Cardiology NYHA: III Heart Failure Type: Acute Heart Failure Type: Systolic Assessment/Plan Hospital Course (Demo Recall) Acute decompensated left ventricular and right ventricular systolic failure Cardia myopathy left ventricular ejection fraction 45% RV dysfunction Severe pulmonary hypertension Atrial fibrillation History of bioprosthetic mitral valve Diabetes Hypertension Ascites status post paracentesis -Patient status post paracentesis with improvement in symptoms. Restarted Coumadin after paracentesis. -Diuretics being titrated as per nephrology Consultation Date/Type/Reason Admit Date/Time Sep 13, 2018 at 18:52 Initial Consult Date Type of Consult Cardiology Date/Time of Note DATE: 09/21/18 TIME: 16:36 24 HR Interval Summary Free Text/Dictation Feeling better, less shortness of breath, less abdominal discomfort Exam/Review of Systems Vital Signs Vitals Vital Signs Date Temp Pulse Resp B/P (MAP) Pulse Ox O2 O2 Flow FiO2 Time Delivery Rate 09/21/18 83 16:16 09/21/18 98.7 18 113/57 93 15:34 (75) 09/20/18 Nasal 4.0 11:24 Cannula Intake and Output 09/20/18 09/20/18 09/21/18 1515:00 23:00 07:00 IntakeIntake Total 250 ml 300 ml OutputOutput Total 1100 ml 800 ml BalanceBalance -850 ml -500 ml Exam Constitutional: alert, oriented (No apparent distress) Respiratory: other (Coarse breath sounds bilaterally, decreased at the bases) Cardiovascular: irregular rhythm (S1-S2 heard) Gastrointestinal: soft, ascites, bowel sounds, distended Extremities: edema Labs Result Diagram: 09/21/18 0546 09/21/18 0546 Results 24hrs Laboratory Tests Test 09/20/18 17:17 09/20/18 21:52 09/21/18 05:46 09/21/18 07:44 Bedside Glucose 279 H 239 H 203 White Blood Count 5.1 Red Blood Count 4.64 Hemoglobin 11.8 L Hematocrit 38.6 Mean Corpuscular 83.2 Volume Mean Corpuscular 25.4 L Hemoglobin Mean Corpuscular 30.6 L Hemoglobin Concent Red Cell 17.1 H Distribution Width Platelet Count 259 Mean Platelet Volume 10.9 H Immature 0.600 H Granulocytes % Neutrophils % 59.2 Lymphocytes % 22.0 Monocytes % 14.1 H Eosinophils % 3.3 Basophils % 0.8 Nucleated Red Blood 0.0 Cells % Immature 0.030 Granulocytes # Neutrophils # 3.0 Lymphocytes # 1.1 Monocytes # 0.7 Eosinophils # 0.2 Basophils # 0.0 Nucleated Red Blood 0.0 Cells # Sodium Level 137 Potassium Level 4.3 Chloride Level 94 L Carbon Dioxide Level 31 Anion Gap 12 Blood Urea Nitrogen 27 H Creatinine 0.88 Est Glomerular > 60 Filtrat Rate mL/min Glucose Level 204 Calcium Level 9.4 Total Bilirubin 0.7 Direct Bilirubin 0.00 Indirect Bilirubin 0.7 Aspartate Amino 23 Transf (AST/SGOT) Alanine 14 Aminotransferase (AL T/SGPT) Alkaline Phosphatase 108 Total Protein 6.8 Albumin 3.7 Globulin 3.10 Albumin/Globulin 1.19 Ratio Test 09/21/18 12:06 Bedside Glucose 261 H Medications Medications Current Medications IV Flush (NS 3 ml) 3 ml PER PROTOCOL IV ; Start 09/13/18 at 20:30 Ondansetron HCl (Zofran Inj) 4 mg Q6H PRN IV NAUSEA/VOMITING; Start 09/13/18 at 20:30 Acetaminophen (Tylenol Tab) 650 mg Q6H PRN PO .PAIN 1-3 OR TEMP Last administered on 09/19/18 23:51; Admin Dose 650 MG; Start 09/13/18 at 20:30 Acetaminophen/ Hydrocodone Bitart ([place] (5/325)) 1 tab Q6H PRN PO .PAIN 4-6 Last administered on 09/17/18 09:49; Admin Dose 1 TAB; Start 09/13/18 at 20:30 Docusate Sodium (Colace) 100 mg Q12H PRN PO .CONSTIPATION; Start 09/13/18 at 20:30 Bisacodyl (Dulcolax) 5 mg DAILY PRN PO .CONSTIPATION; Start 09/13/18 at 20:30 Loratadine (Claritin) 10 mg DAILY PO Last administered on 09/21/18 08:05; Admin Dose 10 MG; Start 09/14/18 at 09:00 Atorvastatin Calcium (Lipitor) 10 mg QHS PO Last administered on 09/20/18 21:53; Admin Dose 10 MG; Start 09/13/18 at 21:00 Insulin Aspart (Novolog Insulin Pen) NOVOLOG *MILD* ALGORITHM WITH MEALS BEDTIME SC Last administered on 09/21/18 12:17; Admin Dose 3 UNIT; Start 09/13/18 at 21:00 Carvedilol (Coreg) 6.25 mg BID PO Last administered on 09/19/18 08:18; Admin Dose 6.25 MG; Start 09/14/18 at 09:00; Status Hold Digoxin (Digoxin) 0.125 mg DAILY@1300 PO Last administered on 09/21/18 12:19; Admin Dose 0.125 MG; Start 09/14/18 at 13:00 Ferrous Sulfate (Ferrous Sulfate (Ec)) 325 mg DAILY PO Last administered on 09/21/18 08:02; Admin Dose 325 MG; Start 09/14/18 at 09:00 Miscellaneous Information 1 ea NOTE XX ; Start 09/14/18 at 13:00 Glucose (Glutose) 15 gm Q15M PRN PO DECREASED GLUCOSE; Start 09/14/18 at 13:00 Glucose (Glutose) 22.5 gm Q15M PRN PO DECREASED GLUCOSE; Start 09/14/18 at 13:00 Dextrose (D50w Syringe) 25 ml Q15M PRN IV DECREASED GLUCOSE; Start 09/14/18 at 13:00 Dextrose (D50w Syringe) 50 ml Q15M PRN IV DECREASED GLUCOSE; Start 09/14/18 at 13:00 Glucagon (Glucagen) 1 mg Q15M PRN IM DECREASED GLUCOSE; Start 09/14/18 at 13:00 Glucose (Glutose) 15 gm Q15M PRN BUCCAL DECREASED GLUCOSE; Start 09/14/18 at 1 3:00 Spironolactone (Aldactone) 25 mg BID PO Last administered on 09/21/18at 08:02; Admin Dose 25 MG; Start 09/14/18 at 21:00 Lisinopril (Zestril) 2.5 mg DAILY PO Last administered on 09/18/18at 09:00; Admin Dose 2.5 MG; Start 09/16/18 at 09:00; Status Hold Sildenafil Citrate (Revatio) 20 mg TID PO Last administered on 09/19/18at 12:47; Admin Dose 20 MG; Start 09/18/18 at 13:00; Status Hold Linagliptin (Tradjenta) 5 mg DAILY PO Last administered on 09/21/18 08:02; Admin Dose 5 MG; Start 09/18/18 at 13:00 Diagnostic Test (Pha) (Accu-Chek) 1 ea 02 XX Last administered on 09/20/18at 02:20; Admin Dose 1 EA; Start 09/19/18 at 02:00 Warfarin Sodium (Coumadin) 5 mg DAILY@17 PO Last administered on 09/20/18at 17:00; Admin Dose 5 MG; Start 09/20/18 at 17:00 Bumetanide (Bumex) 1 mg BID DIURETICS PO ; Start 09/21/18 at 18:00 Insulin Glargine (Lantus) 15 units DAILY@0800 SC ; Start 09/22/18 at 08:00 Rodger Choi DO Sep 21, 2018 16:37
[2018-09-21] MEDS ORDERED: WARFARIN 7.5 MG TAB PO ONE (17:00)
[2018-09-21] MEDS: BUMETANIDE 1 MG TAB PO SCH (17:33)
[2018-09-21] MEDS: ATORVASTATIN 10 MG TAB PO SCH (22:03)
[2018-09-22] VITALS (9 sets, daily range): BP systolic 102–122; BP diastolic 55–60; PULSE 63–109; RESP 18–22
[2018-09-22] MEDS: ACCU-CHEK XX SCH (02:00)
[2018-09-22] MEDS: BUMETANIDE 1 MG TAB PO SCH ×2 (05:44→17:07)
[2018-09-22] MEDS ORDERED: INSULIN GLARGINE [LANTus] (100 UNITS/ML) SYG SC SCH (08:00)
[2018-09-22] MEDS: LORATADINE 10 MG TAB PO SCH (08:04)
[2018-09-22] MEDS: FERROUS SULFATE (EC) 325 MG TAB PO SCH (08:04)
[2018-09-22] MEDS: SPIRONOLACTONE 25 MG TAB PO SCH (08:04)
[2018-09-22] MEDS: LINAGLIPTIN 5 MG TABLET PO SCH (08:05)
[2018-09-22] MEDS: INSULIN ASPART [NOVOLOG] 3 ML PEN SC SCH ×2 (08:10→12:12)
--- NOTE | 2018-09-22 08:55 | PN ---
DATE: 09/22/2018 SUBJECTIVE: The patient is stable, no events overnight. OBJECTIVE: VITAL SIGNS: Blood pressure is 120/60, pulse 109, respirations 18, temperature 98.1. HEENT: Head is normocephalic. NECK: Supple. HEART: Regular rate. LUNGS: Show diminished breath sounds at the base. ABDOMEN: Obese, soft. EXTREMITIES: Negative for clubbing, cyanosis. Trace edema. DERMATOLOGIC: No rashes. MUSCULOSKELETAL: No joint effusion. NEUROLOGIC: No change in exam. MEDICATIONS: The patient's medications have been reviewed. LABORATORY DATA: Reviewed. IMAGING STUDIES: Reviewed. ASSESSMENT AND PLAN: 1. Acute decompensated right-sided heart failure. The patient is clinically improving. Diuretic re gimen has been adjusted. Continue Bumex 1 mg b.i.d. Continue Aldactone. 2. Alkalosis. Etiology may be compensatory due to diuretic therapy. We will continue to monitor. 3. Pulmonary hypertension. Continue sildenafil. 4. Cirrhosis with ascites. The patient is status post paracentesis x2. Continue current medical ma nagement. Continue diuretic therapy. 5. Chronic atrial fibrillation. The patient has been restarted on anticoagulation. Continue medica l management. Follow up with cardiology. 6. History of valve replacement. 7. Dyslipidemia. Continue statin therapy. 8. Nonoliguric acute kidney injury. Etiology is secondary to hemodynamics. Renal function is stabl e, continue to monitor. 9. Diabetes. Continue current insulin regimen. 10. Dyslipidemia. Continue statin therapy. 11. Hypertension. Continue current blood pressure regimen. Dictated By: JANINA SOTO DO NR/NTS Conf#: [id number] DID#: [id number] CC: ELIAS GONSALEZ; REBA FERREIRA MD;*EndCC*
[2018-09-22] MEDS ORDERED: WARFARIN 3 MG TAB PO SCH ×3 (09:00→17:00)
--- NOTE | 2018-09-22 10:24 | PDOCDIS ---
Discharge Instructions CONDITION [id number] Patient Condition: [id number] Stable HOME CARE INSTRUCTIONS: [id number] Your diet recommendation is: [id number] FOLLOW UP/APPOINTMENTS Follow-up Plan You are being sent home with your Coumadin dose. You need to follow-up with your primary care physician or your Coumadin clinic in 2-3 days, you need to repeat your PT/INR blood test in 3 days. We have also faxed your information to the insurance to set up [facility]/others to monitor your pulmonary hypertension and liver cirrhosis for further treatment options you may have available in those places. Meanwhile, you can always follow-up with our outpatient radiology department in the event that you see worsening abdominal distention, accumulating fluid, difficulty breathing to see whether we can You and to remove fluids from your abdomen in our radiology department. If you do come to our radiology department and you need another fluid tapping, please let our radiology department note that you are taking blood thinner Coumadin. You are recommended to have a strict diet restriction with low sodium, fluid restriction up to 1 L a day including the fluid you consumed during the mealtime. ANCA BURT NP Sep 22, 2018 10:24
[2018-09-22] MEDS ORDERED: SILD20TA13 PO (10:25)
[2018-09-22] MEDS ORDERED: BUME1TAB PO (10:25)
--- NOTE | 2018-09-22 10:34 | DS ---
Date/Time of Note Date/Time of Note DATE: 09/22/18 TIME: 10:31 Discharge Summary Admission/Discharge Info Admit Date/Time Sep 13, 2018 at 18:52 Discharge Date/Time Discharge Diagnosis 1. Acute decompensated systolic heart failure.stable. 2.Liver cirrhosis w/ Large volume ascites,s/p multiple paracentesis 3. Pulmonary hypertension 4. Atrial fibrillation 5. Essential hypertension. 6. Type 2 diabetes. 7. Hyperlipidemia. 8. History of mitral valve replacement surgery. Patient Condition: Stable Consults ,cards ,nephro ,mainor,pulmonary ,gi Procedures 09/16/2018. CT abdomen and pelvis. IMPRESSION: Irregular surface contour of the liver suggestive of cirrhosis. Moderate to large volume ascites and mild splenomegaly are likely sequela of portal hypertension. No evidence of bowel obstruction. 09/17/2018. Ultrasound-guided paracentesis. FINDINGS: Initial images demonstrate ascites. Approximately 5 liters of serous fluid was aspirated and discarded. The patient tolerated the procedure well without complication. IMPRESSION: 1. Successful ultrasound-guided paracentesis. 09/20/2018. Ultrasound-guided paracentesis. FINDINGS: Initial images demonstrate ascites. Approximately 5 liters of serous fluid was aspirated and sent for laboratory analysis. The patient tolerated the procedure well without complication. IMPRESSION: 1. Successful ultrasound-guided paracentesis. 09/13/2018. 2D echocardiogram. Conclusions: There is moderate enlargement of left atrium. There is severe enlargement of right atrium. Severe right ventricular systolic dysfunction. Severe enlargement of right ventricle. Severe right ventricular hypokinesis. Flattened Septum in diastole ("D"shaped left ventricle) consistent with RV volume overload. Normal left ventricular cavity size. Mild concentric left ventricular hypertrophy. Ejection fraction is visually estimated at 45 %. Tissue Doppler/Mitral Doppler indices are indeterminate in this study due to the presence of mitral valve replacement. Mitral valve is not well visualized. Trace mitral regurgitation. Mitral Valve Bio Prosthesis. Mitral valve Max Velocity 2.63 m/sec. MaxPG 28.00 mmHg. MeanPG 11.00 mmHg. Aortic valve not well visualized, possibly bioprosthetic. No hemodynamically significant aortic stenosis by doppler. Aortic cusps appear mildly calcified. Mild aortic valve regurgitation. Normal appearance of the tricuspid valve. Estimated peak PA systolic pressure 75 mmHg. There is moderate to severe tricuspid regurgitation. Dilated IVC without respiratory collapse consistent with elevated right atrial pressure. Small pericardial effusion. Electronically Signed By: Tony Robbinsfredis 2018-09-14 13:32:40 PDT Hospital Course :53 yo morbidly obese f w/cm,Hf,mvr, moderate hypertension, CHF, ascites, here w/worsening sob,ascites,anasarca.. Patient was noted in acute decompensated systolic heart failure, pulmonary hypertension, liver cirrhosis with large volume ascites, acute kidney injury. 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 She was continued on Bumex, Aldactone for ascites management, eventually led to multiple paracentesis secondary to excessive fluid accumulation. She was tapped 2 times with 5 L each time. Fluid studies negative for malignancy or infection. Patient was continued on sildenafil for pulmonary hypertension. Most likely cause of ascites is secondary to heart failure, pulmonary hype rtension. She was continued on aggressive medical management. Patient was continued on digoxin, LES inhibitors, Aldactone and diuretics for heart failure management. Patient was not a candidate for beta-pa secondary to hypotension. Her volume status remained stable. She was counseled on diet restrictions including low sodium diet with fluid restriction which she verbalized understanding. Patient was continued on insulin for diabetes. At this time, she remains hemodynamically stable. She is stable for outpatient follow-up with the recommendation of tertiary care follow-up for underlying heart failure, pulmonary hypertension and recurrent ascites. Case management to follow-up on these prior to discharge. She was also given the opportunity to come back to [facility] outpatient radiology department in the event that she needs paracentesis in the future. She was also instructed on informing the providers of being on Coumadin therapy prior to any tapping procedures. Patient had physical therapy evaluation and no DME/home health need where identified. She is safe to be discharged home. Approximately 60 minutes was spent on coordinating the discharge on this patient. Patient was seen in collaboration with Dr. Nuñez. Home Meds Active Scripts Bumetanide* (Bumetanide*) 1 Mg Tablet, 1 MG PO BID DIURETICS, #60 TAB Prov:BURT,ANCA V. PHYSICAL THERAPY INSTRUCTOR 09/22/18 Sildenafil Citrate* (Revatio*) 20 Mg Tab, 20 MG PO TID, #90 TAB Prov:BURT,ANCA V. PHYSICAL THERAPY INSTRUCTOR 09/22/18 Reported Medications Triamcinolone Acetonide* (Kenalog*) 0.1%-15GM Oint, 1 APPLIC TOP BID, #1 EA 09/13/18 Spironolactone* (Aldactone*) 25 Mg Tablet, 25 MG PO DAILY, #30 TAB 09/13/18 Simvastatin* (Zocor*) 20 Mg Tablet, 20 MG PO QHS, #30 TAB 09/13/18 Loratadine* (Loratadine*) 10 Mg Tablet, 10 MG PO DAILY, #30 TAB 09/13/18 Furosemide* (Furosemide*) 40 Mg Tablet, 40 MG PO TID, TAB 09/13/18 Sitagliptin* (Januvia*) 50 Mg Tablet, 50 MG PO DAILY, #30 TAB 09/13/18 Ferrous Sulfate* (Ferrous Sulfate*) 325 Mg Tabec, 325 MG PO DAILY, TAB 09/13/18 Digoxin* (Digitek*) 125 Mcg Tablet, 0.125 MG PO DAILY, TAB 09/13/18 Warfarin Sodium* (Coumadin*) 6 Mg Tablet, 6 MG PO DAILY, TAB 09/13/18 Carvedilol* (Carvedilol*) 6.25 Mg Tablet, 6.25 MG PO BID, #60 TAB 09/13/18 Insulin Glargine,Hum.rec.anlog (Basaglar Kwikpen U-100) 100 Unit/1 Ml Insuln.pen, 90 UNIT SC QHS, EA 09/13/18 Insulin Lispro (Humalog) 100 Unit/1 Ml Cartridge, 33 UNIT SQ WITH MEALS, EA 09/13/18 Follow-up Plan You are being sent home with your Coumadin dose. You need to follow-up with your primary care physician or your Coumadin clinic in 2-3 days, you need to repeat your PT/INR blood test in 3 days. We have also faxed your information to the insurance to set up outpatient follow-up at a tertiary [facility]/others to monitor your pulmonary hypertension and liver cirrhosis for further treatment options you may have available in those places. Meanwhile, you can always follow-up with our outpatient radiology department in the event that you see worsening abdominal distention, accumulating fluid, difficulty breathing to see whether we can You and to remove fluids from your abdomen in our radiology department. If you do come to our radiology department and you need another fluid tapping, please let our radiology department note that you are taking blood thinner Coumadin. You are recommended to have a strict diet restriction with low sodium, fluid restriction up to 1 L a day including the fluid you consumed during the mealtime. Primary Care Provider [facility] Pending Labs Laboratory Tests Test 09/21/18 12:06 09/21/18 17:31 09/21/18 22:01 09/22/18 03:01 Bedside 261 211 278 181 Glucose mg/dL (70-220) mg/dL (70-220) mg/dL (70-220) mg/dL (70-220) Test 09/22/18 05:30 09/22/18 08:02 White Blood 5.4 Count 10^3/ul (4.8-10 .8) Red Blood 4.92 Count 10^6/ul (4.20-5 .40) Hemoglobin 12.6 g/dl (12.0-16.0 ) Hematocrit 40.6 % (37.0-47.0) Mean 82.5 Corpuscular fl (82.0-101.0) Volume Mean 25.6 Corpuscular pg (29.0-33.0) Hemoglobin Mean 31.0 Corpuscular g/dl (32.0-37.0 Hemoglobin Conc ) ent Red Cell 17.1 Distribution % (11.5-14.5) Width Platelet Count 274 10^3/UL (140-41 5) Mean Platelet 10.8 Volume fl (7.4-10.4) Immature 0.700 Granulocytes % % (0.001-0.429) Neutrophils % 61.7 % (39.0-77.0) Lymphocytes % 21.5 % (15.0-51.0) Monocytes % 11.9 % (0.0-11.0) Eosinophils % 3.5 % (0.0-7.0) Basophils % 0.7 % (0.0-2.0) Nucleated Red 0.0 Blood Cells % /100WBC (0.0-0. 0) Immature 0.040 Granulocytes # 10^3/ul (0.0-0. 031) Neutrophils # 3.4 10^3/ul (1.6-7. 5) Lymphocytes # 1.2 10^3/ul (0.8-2. 9) Monocytes # 0.7 10^3/ul (0.3-0. 9) Eosinophils # 0.2 10^3/ul (0.0-0. 5) Basophils # 0.0 10^3/ul (0.0-0. 1) Nucleated Red 0.0 Blood Cells # 10^3/ul (0.0-0. 0) Prothrombin 16.5 Time Sec (11.9-14.9) Prothrombin 1.3 Time Ratio INR 1.32 International Normalized Rati o Sodium Level 140 mmol/L (135-144 ) Potassium 3.8 Level mmol/L (3.5-5.1 ) Chloride Level 95 mmol/L (97-110) Carbon Dioxide 32 Level mmol/L (21-31) Anion Gap 13 (5-13) Blood Urea 27 mg/dl (7-20) Nitrogen Creatinine 0.87 mg/dl (0.44-1.0 0) Est Glomerular > 60 Filtrat mL/min (>60) Rate mL/min Glucose Level 169 mg/dl (70-220) Calcium Level 9.5 mg/dl (8.4-10.2 ) Phosphorus 4.3 Level mg/dl (2.5-4.9) Magnesium 1.7 Level mg/dl (1.7-2.5) Bedside 183 Glucose mg/dL (70-220) ANCA BURT NP Sep 22, 2018 10:34
--- NOTE | 2018-09-22 11:55 | CONS ---
Consult Date/Type/Reason Admit Date/Time Sep 13, 2018 at 18:52 Initial Consult Date 09/20/18 Type of Consult Pulmonary Date/Time of Note DATE: 09/22/18 TIME: 11:53 Subjective Remained stable. No new events but mild exertional dyspnea. Objective Vital Signs Date Temp Pulse Resp B/P (MAP) Pulse Ox O2 O2 Flow FiO2 Time Delivery Rate 09/22/18 102 08:00 09/22/18 98.1 18 102/60 95 Room Air 07:17 (74) 09/20/18 4.0 11:24 Intake and Output 09/21/18 09/21/18 09/22/18 1414:59 22:59 06:59 IntakeIntake Total 300 ml 240 ml OutputOutput Total 1200 ml 1200 ml BalanceBalance -900 ml -960 ml Exam PHYSICAL EXAMINATION: GENERAL: Well-nourished, well-developed lady with significant ascites. VITAL SIGNS: NECK: Supple. No JVD or lymphadenopathy. CARDIAC: S1, S2, no added sounds or murmurs. CHEST: Diminished air entry bilaterally. ABDOMEN: Soft, nontender. No guarding or rebound, obese. EXTREMITIES: No cyanosis, clubbing or edema. NEUROLOGIC: Generalized weakness. Results/Medications Result Diagram: 09/22/18 0530 09/22/18 0530 Results 24 hrs Laboratory Tests Test 09/21/18 12:06 09/21/18 17:31 09/21/18 22:01 09/22/18 03:01 Bedside Glucose 261 H 211 278 H 181 Test 09/22/18 05:30 09/22/18 08:02 White Blood Count 5.4 Red Blood Count 4.92 Hemoglobin 12.6 Hematocrit 40.6 Mean Corpuscular 82.5 Volume Mean Corpuscular 25.6 L Hemoglobin Mean Corpuscular 31.0 L Hemoglobin Concent Red Cell 17.1 H Distribution Width Platelet Count 274 Mean Platelet Volume 10.8 H Immature 0.700 H Granulocytes % Neutrophils % 61.7 Lymphocytes % 21.5 Monocytes % 11.9 H Eosinophils % 3.5 Basophils % 0.7 Nucleated Red Blood 0.0 Cells % Immature 0.040 H Granulocytes # Neutrophils # 3.4 Lymphocytes # 1.2 Monocytes # 0.7 Eosinophils # 0.2 Basophils # 0.0 Nucleated Red Blood 0.0 Cells # Prothrombin Time 16.5 H Prothrombin Time 1.3 Ratio INR International 1.32 Normalized Ratio Sodium Level 140 Potassium Level 3.8 Chloride Level 95 L Carbon Dioxide Level 32 H Anion Gap 13 Blood Urea Nitrogen 27 H Creatinine 0.87 Est Glomerular > 60 Filtrat Rate mL/min Glucose Level 169 Calcium Level 9.5 Phosphorus Level 4.3 Magnesium Level 1.7 Bedside Glucose 183 Medications Current Medications IV Flush (NS 3 ml) 3 ml PER PROTOCOL IV ; Start 09/13/18 at 20:30 Ondansetron HCl (Zofran Inj) 4 mg Q6H PRN IV NAUSEA/VOMITING; Start 09/13/18 at 20:30 Acetaminophen (Tylenol Tab) 650 mg Q6H PRN PO .PAIN 1-3 OR TEMP Last administered on 09/19/18 23:51; Admin Dose 650 MG; Start 09/13/18 at 20:30 Acetaminophen/ Hydrocodone Bitart ([place] (5/325)) 1 tab Q6H PRN PO .PAIN 4-6 Last administered on 09/17/18 09:49; Admin Dose 1 TAB; Start 09/13/18 at 20:30 Docusate Sodium (Colace) 100 mg Q12H PRN PO .CONSTIPATION; Start 09/13/18 at 20:30 Bisacodyl (Dulcolax) 5 mg DAILY PRN PO .CONSTIPATION; Start 09/13/18 at 20:30 Loratadine (Claritin) 10 mg DAILY PO Last administered on 09/22/18 08:04; Admin Dose 10 MG; Start 09/14/18 at 09:00 Atorvastatin Calcium (Lipitor) 10 mg QHS PO Last administered on 09/21/18 22:03; Admin Dose 10 MG; Start 09/13/18 at 21:00 Insulin Aspart (Novolog Insulin Pen) NOVOLOG *MILD* ALGORITHM WITH MEALS BEDTIME SC Last administered on 09/22/18 08:10; Admin Dose 2 UNIT; Start 09/13/18 at 21:00 Carvedilol (Coreg) 6.25 mg BID PO Last administered on 09/19/18 08:18; Admin Dose 6.25 MG; Start 09/14/18 at 09:00; Status Hold Digoxin (Digoxin) 0.125 mg DAILY@1300 PO Last administered on 09/21/18 12:19; Admin Dose 0.125 MG; Start 09/14/18 at 13:00 Ferrous Sulfate (Ferrous Sulfate (Ec)) 325 mg DAILY PO Last administered on 09/22/18at 08:04; Admin Dose 325 MG; Start 09/14/18 at 09:00 Miscellaneous Information 1 ea NOTE XX ; Start 09/14/18 at 13:00 Glucose (Glutose) 15 gm Q15M PRN PO DECREASED GLUCOSE; Start 09/14/18 at 13:00 Glucose (Glutose) 22.5 gm Q15M PRN PO DECREASED GLUCOSE; Start 09/14/18 at 13:00 Dextrose (D50w Syringe) 25 ml Q15M PRN IV DECREASED GLUCOSE; Start 09/14/18 at 13:00 Dextrose (D50w Syringe) 50 ml Q15M PRN IV DECREASED GLUCOSE; Start 09/14/18 at 13:00 Glucagon (Glucagen) 1 mg Q15M PRN IM DECREASED GLUCOSE; Start 09/14/18 at 13:00 Glucose (Glutose) 15 gm Q15M PRN BUCCAL DECREASED GLUCOSE; Start 09/14/18 at 13:00 Spironolactone (Aldactone) 25 mg BID PO Last administered on 09/22/18at 08:04; Admin Dose 25 MG; Start 09/14/18 at 21:00 Lisinopril (Zestril) 2.5 mg DAILY PO Last administered on 09/18/18at 09:00; Admin Dose 2.5 MG; Start 09/16/18 at 09:00; Status Hold Sildenafil Citrate (Revatio) 20 mg TID PO Last administered on 09/19/18at 12:47; Admin Dose 20 MG; Start 09/18/18 at 13:00; Status Hold Linagliptin (Tradjenta) 5 mg DAILY PO Last administered on 09/22/18at 08:05; Admin Dose 5 MG; Start 09/18/18 at 13:00 Diagnostic Test (Pha) (Accu-Chek) 1 ea 02 XX Last administered on 09/22/18at 02:00; Admin Dose 1 EA; Start 09/19/18 at 02:00 Bumetanide (Bumex) 1 mg BID DIURETICS PO Last administered on 09/22/18at 05:44; Admin Dose 1 MG; Start 09/21/18 at 18:00 Insulin Glargine (Lantus) 15 units DAILY@0800 SC Last administered on 09/22/18at 08:11; Admin Dose 15 UNITS; Start 09/22/18 at 08:00 Warfarin Sodium (Coumadin) 6 mg DAILY@17 PO ; Start 09/22/18 at 17:00; Stop 09/22/18 at 23:00 Assessment/Plan Hospital Course (Demo Recall) IMPRESSION 1. History of valvular heart disease with pulmonary hypertension. 2. Chronic atrial fibrillation. 3. Cirrhosis with recurrent ascites. 4. Severe pulmonary hypertension as noted. Plan 1. Continued paracentesis. 2. Resumption of anticoagulation followed by synthetic prosthetic valve. 3. Now initiated on sildenafil for pulmonary hypertension. 4. Referral to tertiary care center. ZORA BARNHART MD, [facility] Sep 22, 2018 11:54
[2018-09-22] MEDS: DIGOXIN 0.125 MG TAB PO SCH (12:07)
--- NOTE | 2018-09-22 14:01 | CONS ---
Assessment/Plan Cardiology NYHA: III Heart Failure Type: Acute Heart Failure Type: Systolic Assessment/Plan Hospital Course (Demo Recall) Acute decompensated left ventricular and right ventricular systolic failure Cardia myopathy left ventricular ejection fraction 45% RV dysfunction Severe pulmonary hypertension Atrial fibrillation History of bioprosthetic mitral valve Diabetes Hypertension Ascites status post paracentesis -Patient status post paracentesis with improvement in symptoms. Restarted Coumadin after paracentesis. Adjust as per INR -Diuretics being titrated as per nephrology -DC planning Consultation Date/Type/Reason Admit Date/Time Sep 13, 2018 at 18:52 Initial Consult Date Type of Consult Cardiology Date/Time of Note DATE: 09/22/18 TIME: 14:00 24 HR Interval Summary Free Text/Dictation Feeling better, less shortness of breath, belly feels better Exam/Review of Systems Vital Signs Vitals Vital Signs Date Temp Pulse Resp B/P (MAP) Pulse Ox O2 O2 Flow FiO2 Time Delivery Rate 09/22/18 98.0 81 22 114/57 96 Room Air 12:44 (76) 09/20/18 4.0 11:24 Intake and Output 09/21/18 09/21/18 09/22/18 1414:59 22:59 06:59 IntakeIntake Total 300 ml 240 ml OutputOutput Total 1200 ml 1200 ml BalanceBalance -900 ml -960 ml Exam Constitutional: alert, oriented (No apparent distress) Head: normocephalic Respiratory: other (Coarse breath sounds bilaterally, no wheezing) Cardiovascular: irregular rhythm (S1-S2 heard) Gastrointestinal: soft, non-tender, ascites, bowel sounds, distended Extremities: edema Labs Result Diagram: 09/22/1830 09/22/18 0530 Results 24hrs Laboratory Tests Test 09/21/18 17:31 09/21/18 22:01 09/22/18 03:01 09/22/18 05:30 Bedside Glucose 211 278 H 181 White Blood Count 5.4 Red Blood Count 4.92 Hemoglobin 12.6 Hematocrit 40.6 Mean Corpuscular 82.5 Volume Mean Corpuscular 25.6 L Hemoglobin Mean Corpuscular 31.0 L Hemoglobin Concent Red Cell 17.1 H Distribution Width Platelet Count 274 Mean Platelet Volume 10.8 H Immature 0.700 H Granulocytes % Neutrophils % 61.7 Lymphocytes % 21.5 Monocytes % 11.9 H Eosinophils % 3.5 Basophils % 0.7 Nucleated Red Blood 0.0 Cells % Immature 0.040 H Granulocytes # Neutrophils # 3.4 Lymphocytes # 1.2 Monocytes # 0.7 Eosinophils # 0.2 Basophils # 0.0 Nucleated Red Blood 0.0 Cells # Prothrombin Time 16.5 H Prothrombin Time 1.3 Ratio INR International 1.32 Normalized Ratio Sodium Level 140 Potassium Level 3.8 Chloride Level 95 L Carbon Dioxide Level 32 H Anion Gap 13 Blood Urea Nitrogen 27 H Creatinine 0.87 Est Glomerular > 60 Filtrat Rate mL/min Glucose Level 169 Calcium Level 9.5 Phosphorus Level 4.3 Magnesium Level 1.7 Test 09/22/18 08:02 09/22/18 12:06 Bedside Glucose 183 221 H Medications Medications Current Medications IV Flush (NS 3 ml) 3 ml PER PROTOCOL IV ; Start 09/13/18 at 20:30 Ondansetron HCl (Zofran Inj) 4 mg Q6H PRN IV NAUSEA/VOMITING; Start 09/13/18 at 20:30 Acetaminophen (Tylenol Tab) 650 mg Q6H PRN PO .PAIN 1-3 OR TEMP Last administered on 09/19/18at 23:51; Admin Dose 650 MG; Start 09/13/18 at 20:30 Acetaminophen/ Hydrocodone Bitart (M[place]za (5/325)) 1 tab Q6H PRN PO .PAIN 4-6 Last administered on 09/17/18 09:49; Admin Dose 1 TAB; Start 09/13/18 at 20:30 Docusate Sodium (Colace) 100 mg Q12H PRN PO .CONSTIPATION; Start 09/13/18 at 20:30 Bisacodyl (Dulcolax) 5 mg DAILY PRN PO .CONSTIPATION; Start 09/13/18 at 20:30 Loratadine (Claritin) 10 mg DAILY PO Last administered on 09/22/18 08:04; Admin Dose 10 MG; Start 09/14/18 at 09:00 Atorvastatin Calcium (Lipitor) 10 mg QHS PO Last administered on 09/21/18 22:03; Admin Dose 10 MG; Start 09/13/18 at 21:00 Insulin Aspart (Novolog Insulin Pen) NOVOLOG *MILD* ALGORITHM WITH MEALS BEDTIME SC Last administered on 09/22/18 12:12; Admin Dose 3 UNIT; Start 09/13/18 at 21:00 Carvedilol (Coreg) 6.25 mg BID PO Last administered on 09/19/18 08:18; Admin Dose 6.25 MG; Start 09/14/18 at 09:00; Status Hold Digoxin (Digoxin) 0.125 mg DAILY@1300 PO Last administered on 09/22/18 12:07; Admin Dose 0.125 MG; Start 09/14/18 at 13:00 Ferrous Sulfate (Ferrous Sulfate (Ec)) 325 mg DAILY PO Last administered on 09/22/18 08:04; Admin Dose 325 MG; Start 09/14/18 at 09:00 Miscellaneous Information 1 ea NOTE XX ; Start 09/14/18 at 13:00 Glucose (Glutose) 15 gm Q15M PRN PO DECREASED GLUCOSE; Start 09/14/18 at 13:00 Glucose (Glutose) 22.5 gm Q15M PRN PO DECREASED GLUCOSE; Start 09/14/18 at 13:00 Dextrose (D50w Syringe) 25 ml Q15M PRN IV DECREASED GLUCOSE; Start 09/14/18 at 13:00 Dextrose (D50w Syringe) 50 ml Q15M PRN IV DECREASED GLUCOSE; Start 09/14/18 at 13:00 Glucagon (Glucagen) 1 mg Q15M PRN IM DECREASED GLUCOSE; Start 09/14/18 at 13:00 Glucose (Glutose) 15 gm Q15M PRN BUCCAL DECREASED GLUCOSE; Start 09/14/18 at 13:00 Spironolactone (Aldactone) 25 mg BID PO Last administered on 09/22/18 08:04; Admin Dose 25 MG; Start 09/14/18 at 21:00 Lisinopril (Zestril) 2.5 mg DAILY PO Last administered on 09/18/18 09:00; Admin Dose 2.5 MG; Start 09/16/18 at 09:00; Status Hold Sildenafil Citrate (Revatio) 20 mg TID PO Last administered on 09/19/18 12:47; Admin Dose 20 MG; Start 09/18/18 at 13:00; Status Hold Linagliptin (Tradjenta) 5 mg DAILY PO Last administered on 09/22/18 08:05; Admin Dose 5 MG; Start 09/18/18 at 13:00 Diagnostic Test (Pha) (Accu-Chek) 1 ea 02 XX Last administered on 09/22/18at 02:00; Admin Dose 1 EA; Start 09/19/18 at 02:00 Bumetanide (Bumex) 1 mg BID DIURETICS PO Last administered on 09/22/18at 05:44; Admin Dose 1 MG; Start 09/21/18 at 18:00 Insulin Glargine (Lantus) 15 units DAILY@0800 SC Last administered on 09/22/18at 08:11; Admin Dose 15 UNITS; Start 09/22/18 at 08:00 Warfarin Sodium (Coumadin) 6 mg DAILY@17 PO ; Start 09/22/18 at 17:00; Stop 09/22/18 at 23:00 Rodger Choi DO Sep 22, 2018 14:01
== END 2018-09-22 17:30 | disposition home or self-care (01) | DRG 291 ==
LOC: E/R 16:33 → 6WM 18:52
PROVIDERS: ADMIT Family Medicine; ATTEND Family Medicine
PROC: 30233K1 Transfusion of Nonautologous Frozen Plasma into Peripheral Vein, Percutaneous Approach (ICD-10-PCS; principal; 2018-09-17)
PROC: 0W9G3ZZ Drainage of Peritoneal Cavity, Percutaneous Approach (ICD-10-PCS; 2018-09-17)
PROC: 0W9G3ZZ Drainage of Peritoneal Cavity, Percutaneous Approach (ICD-10-PCS; 2018-09-20)
DX: I13.0 Hypertensive heart and chronic kidney disease with heart failure and stage 1 through stage 4 chronic kidney disease, or unspecified chronic kidney disease (principal); I50.23 Acute on chronic systolic (congestive) heart failure; R18.8 Other ascites; E11.22 Type 2 diabetes mellitus with diabetic chronic kidney disease; E11.65 Type 2 diabetes mellitus with hyperglycemia; K75.81 Nonalcoholic steatohepatitis (NASH); N18.9 Chronic kidney disease, unspecified; I48.91 Unspecified atrial fibrillation; Z79.01 Long term (current) use of anticoagulants; I27.20 Pulmonary hypertension, unspecified; Z95.2 Presence of prosthetic heart valve; E02 Subclinical iodine-deficiency hypothyroidism; D50.8 Other iron deficiency anemias; Z79.02 Long term (current) use of antithrombotics/antiplatelets; Z79.4 Long term (current) use of insulin
CPT/HCPCS: 36415; 36430; 71045; 74176; 76705; 80048; 80053; 80061; 80162; 81001; 81003; 82043; 82140; 82550; 82553; 82962; 83036; 83615; 83690; 83735; 83880; 84100; 84155; 84157; 84300; 84439; 84443; 84481; 84484; 85025; 85610; 85730; 86704; 86706; 86709; 86803; 86850; 86900; 86901; 87070; 87102; 87116; 87340; 88104; 88107; 88305; 89051; 93005; 93306; 96374; 97161; J1120; J1815; J1940; J7040; P9059

== ENCOUNTER 2018-11-26 16:58 | Inpatient (IN) | payer OTHER ==
[~2018-11-26] VITALS: Ht 152.4 cm; Wt 101.8 kg
[~2018-11-26 16:58] MED LIST changes: +BUME1TAB PO; -CARV25TA79 PO; +CARV6.2579 PO; +FER325 PO; -FURO40TA4 PO; +INSU100C SQ; -INSU100I12 SQ; +INSU100I33 SC; -INSU300I SQ; +KEN1O TOP; -LEVO50TA7 PO; +LISI-313 PO; +LORA10TA3 PO; +SILD20TA13 PO; +SPIR25TA PO
--- NOTE | 2018-11-26 18:07 | ERD ---
ER Documentation Chief Complaint Chief Complaint Ascites w/pain/bilateral foot pain 01/05, 2 months since last paracentesis HPI 53-year-old female with chronic kidney disease, hepatomegaly, diabetes, hypertension, and CHF who presents with severe abdominal distention with abdominal pain, bilateral leg pain, and shortness of breath. Her symptoms have been going on for several days and have been worsening over the past 2 months. She was admitted 2 months ago for similar symptoms and had a paracentesis done at that time. She has not had a paracentesis since. She denies any chest pain, nausea, vomiting, fever, chills. She is taking her diuretic without improvement of her symptoms. Her abdominal pain is pressure-like, worse with movement, with no alleviating factors. Currently she complains of 5 out of 10 pain. ROS All systems reviewed and are negative except as per history of present illness. Medications Home Meds Active Scripts Bumetanide* (Bumetanide*) 1 Mg Tablet, 1 MG PO BID DIURETICS, #60 TAB Prov:BURT,ANCA V. CANE SPLICER 09/22/18 Sildenafil Citrate* (Revatio*) 20 Mg Tab, 20 MG PO TID, #90 TAB Prov:BURT,ANCA V. CANE SPLICER 09/22/18 Lisinopril* (Lisinopril*) 5 Mg Tablet, 2.5 MG PO DAILY, #30 TAB 2 Refills Prov:ALFONZO BISHOP. 09/16/18 Insulin Glargine,Hum.rec.anlog (Basaglar Kwikpen U-100) 100 Unit/1 Ml Insuln.pen, 20 UNIT SC QHS, #6 VIAL 1 Refill Prov:ALFONZO BISHOP. 09/16/18 Insulin Lispro (Humalog) 100 Unit/1 Ml Cartridge, 7 UNIT SQ WITH MEALS, #7 VIAL 2 Refills Prov:ALFONZO BISHOP. 09/16/18 Reported Medications Triamcinolone Acetonide* (Kenalog*) 0.1%-15GM Oint, 1 APPLIC TOP BID, #1 EA 09/13/18 Spironolactone* (Aldactone*) 25 Mg Tablet, 25 MG PO DAILY, #30 TAB 09/13/18 Simvastatin* (Zocor*) 20 Mg Tablet, 20 MG PO QHS, #30 TAB 09/13/18 Loratadine* (Loratadine*) 10 Mg Tablet, 10 MG PO DAILY, #30 TAB 09/13/18 Sitagliptin* (Januvia*) 50 Mg Tablet, 50 MG PO DAILY, #30 TAB 09/13/18 Ferrous Sulfate* (Ferrous Sulfate*) 325 Mg Tabec, 325 MG PO DAILY, TAB 09/13/18 Digoxin* (Digitek*) 125 Mcg Tablet, 0.125 MG PO DAILY, TAB 09/13/18 Warfarin Sodium* (Coumadin*) 6 Mg Tablet, 6 MG PO DAILY, TAB 09/13/18 Carvedilol* (Carvedilol*) 6.25 Mg Tablet, 6.25 MG PO BID, #60 TAB 09/13/18 Allergies Allergies: Coded Allergies: morphine (Verified Allergy, Unknown, 09/13/18) PMhx/Soc History of Surgery: Yes (mitral valve replacement., Appendectomy, cholecystectomy) Anesthesia Reaction: No Hx Neurological Disorder: No Hx Respiratory Disorders: No Hx Cardiac Disorders: Yes (HTN, CHF, mitral valve replacement) Hx Psychiatric Problems: No Hx Miscellaneous Medical Probl: Yes (CKD, DM , hepatomegaly with ascites) Hx Alcohol Use: No Hx Substance Use: No Hx Tobacco Use: No FmHx Family History: No coronary disease Physical Exam Vitals Vital Signs Date Temp Pulse Resp B/P (MAP) Pulse Ox O2 O2 Flow FiO2 Time Delivery Rate 11/26/18 98.6 85 18 108/69 96 Room Air 22:30 (82) 11/26/18 98.6 83 18 103/65 97 Room Air 20:30 (78) 11/26/18 98.6 85 18 106/66 96 Room Air 18:29 (79) 11/26/18 98.6 87 18 110/55 93 17:13 (73) Physical Exam Const: No acute distress Head: Atraumatic Eyes: Normal Conjunctiva ENT: Normal External Ears, Nose and Mouth. Neck: Full range of motion. No meningismus. Resp: Clear to auscultation bilaterally, but poor respiratory effort due to abdominal distention Cardio: Regular rate and rhythm, no murmurs Abd: Significantly distended, protuberant. Soft, non tender, no hernias noted. no pulsatile mass. Normal bowel sounds Skin: No petechiae or rashes Back: No midline or flank tenderness Ext: No cyanosis, trace bilateral lower extremity edema. No calf tenderness. Neur: Awake and alert Psych: Normal Mood and Affect Result Diagram: 11/26/18184911/26/181849 Results 24 hrs Laboratory Tests Test 11/26/18 18:50 White Blood Count 5.5 10^3/ul Red Blood Count 3.76 10^6/ul Hemoglobin 10.4 g/dl Hematocrit 33.5 % Mean Corpuscular Volume 89.1 fl Mean Corpuscular Hemoglobin 27.7 pg Mean Corpuscular Hemoglobin Concent 31.0 g/dl Red Cell Distribution Width 18.2 % Platelet Count 221 10^3/UL Mean Platelet Volume 10.5 fl Immature Granulocytes % 0.500 % Neutrophils % 70.3 % Lymphocytes % 17.0 % Monocytes % 9.3 % Eosinophils % 2.4 % Basophils % 0.5 % Nucleated Red Blood Cells % 0.0 /100WBC Immature Granulocytes # 0.030 10^3/ul Neutrophils # 3.8 10^3/ul Lymphocytes # 0.9 10^3/ul Monocytes # 0.5 10^3/ul Eosinophils # 0.1 10^3/ul Basophils # 0.0 10^3/ul Nucleated Red Blood Cells # 0.0 10^3/ul Prothrombin Time 25.7 Sec Prothrombin Time Ratio 2.0 INR International Normalized Ratio 2.34 Activated Partial Thromboplast Time 37.0 Sec Sodium Level 140 mmol/L Potassium Level 5.4 mmol/L Chloride Level 107 mmol/L Carbon Dioxide Level 23 mmol/L Anion Gap 10 Blood Urea Nitrogen 51 mg/dl Creatinine 1.35 mg/dl Est Glomerular Filtrat Rate mL/min 41 mL/min Glucose Level 84 mg/dl Calcium Level 9.1 mg/dl Total Bilirubin 0.6 mg/dl Direct Bilirubin 0.00 mg/dl Indirect Bilirubin 0.6 mg/dl Aspartate Amino Transf (AST/SGOT) 35 IU/L Alanine Aminotransferase (ALT/SGPT) 30 IU/L Alkaline Phosphatase 119 IU/L Total Protein 7.7 g/dl Albumin 4.0 g/dl Globulin 3.70 g/dl Albumin/Globulin Ratio 1.08 Lipase 111 U/L Current Medications Medications Dose Sig/Mallika Start Time Status Last (Trade) Ordered Route PRN Stop Time Admin Dose Reason Admin Ondansetron 4 mg BRIDGE ORDER 11/26/18 HCl (Zofran PRN IV 22:00 11/27/18 Inj) NAUSEA/VOMITI 21:59 NG 650 mg ER BRIDGE 11/26/18 Acetaminophen PRN PO 22:00 11/27/18 (Tylenol .MILD PAIN 21:59 Tab) 1-3 OR TEMP Procedures/MDM EMERGENT LABS AND DIAGNOSTIC STUDIES: Lab Results above were reviewed and interpreted by me. CBC: Mild anemia, likely secondary to chronic disease. No evidence of infection CMP: Elevated BUN and creatinine compared to patient's baseline, consistent with acute renal insufficiency with borderline hyperkalemia. No evidence of clinically significant electrolyte abnormality, acidosis, hypoglycemia, liver disease, or biliary obstruction INR appropriately elevated Radiology Results as interpreted by Radiology below were reviewed by Kat Johnson MD: Chest x-ray: Marked cardiomegaly. Status post CABG and valvuloplasty. Severe pulmonary dilatation, consistent with severe pulmonary hypertension. No radiographic evidence of interval change. Initial Nursing notes reviewed. Previous Medical Records requested via the Electronic Health Record. EMERGENCY DEPARTMENT COURSE / MEDICAL DECISION MAKING: Patient is presenting with severe abdominal distention secondary to ascites. She also has shortness of breath secondary to her abdominal distention. However her chest x-ray does not show any significant abnormalities. Vital signs were unremarkable. Labs did not show any significant abnormalities. However patient is very symptomatic and cannot be discharged in this condition and will need a paracentesis. She also has acute renal insufficiency which needs to be addressed. Clearly her diuretics are not working at home and she will likely require medication optimization for diuresis as well. Critical Care Time: 35 minutes Treatments/Evaluations: Close monitoring and treatment of unstable vital signs, cardiorespiratory, and neurologic status, while maintaining tight balance of fluid, respiratory, and cardiac interventions. This time includes discussing the case with the patient and the patients family. This time does not include all procedures stated elsewhere in this record. This time also includes reviewing old records, labs and radiological studies. This time includes examining and re- examining the patient. Additionally, this time also includes arranging care with admitting and consulting physicians. Accepting Care Team: Current data and ongoing care discussed. Time: Time of admission Primary Provider: Dr. Roge Rios Departure Diagnosis: Primary Impression: Abdominal distention Additional Impressions: Ascites Ascites type: other type Qualified Codes: R18.8 - Other ascites Dyspnea Dyspnea type: unspecified Qualified Codes: R06.00 - Dyspnea, unspecified Acute renal insufficiency Condition: FELICIA Pereira MD November 26, 2018 18:07
[2018-11-26] MEDS ORDERED: ONDANSETRON 4 MG INJ IV PRN (22:00)
[2018-11-26 23:00] VITALS: BP 111/68; PULSE 85; RESP 20
[2018-11-26 23:11] VITALS: Ht 152.4 cm; Wt 101.8 kg
[2018-11-27] VITALS (7 sets, daily range): BP systolic 88–112; BP diastolic 50–59; PULSE 82–89; RESP 18–20
[2018-11-27] MEDS ORDERED: ONDANSETRON 4 MG INJ IV PRN (00:30)
[2018-11-27] MEDS ORDERED: NACL 0.9% 3 ML SYG IV SCH (00:30)
--- NOTE | 2018-11-27 00:55 | HP ---
Date/Time of Note Date/Time of Note DATE: 11/27/18 TIME: 00:33 Assessment/Plan VTE Prophylaxis SCD applied (from Nsg): No SCD contraindicated: other (not needed) Pharmacological prophylaxis: warfarin tx Lines/Catheters IV Catheter Type (from Nrs): Saline Lock Assessment/Plan Assessment/Plan 53 yo woman with insulin-dependent type 2 diabetes mellitus, congestive heart failure, pulmonary hypertension, atrial fibrillation on Coumadin, hypothyroidism presents with ascites #Ascites - US-guided paracentesis ordered - Patient is on warfarin for A fib and bioprosthetic mitral valve. I believe the risk of stopping warfarin outweighs the very small risk of bleed after paracentesis. Will continue. - Continue bumex and spironolactone to limit ascites recurrence. - NPO for procedure #HUA #Hyperkalemia - Will hold ACEi - Continue current dose of PO diuretics. Patient is at baseline euvolemia for her. - Continue to closely monitor. Expect improvement in Cr after paracentesis. #IDDM - Will check HgbA1C - Patient reports poor appetite and BS is low on admission. Will start half dose glargine 10u qAM. - Will hold normal mealtime insulin, - RISS #CHF - Currently does not appear fluid overloaded - Continue beta pa - Hold ACEi - Continue oral diuretics #A fib #Bioprostetic mitral valve - Continue warfarin - Rate control on beta pa DVT: warfarin GI: None Result Diagram: 11/26/18184911/26/181849 HPI/ROS Admit Date/Time Admit Date/Time November 26, 2018 at 22:46 Hx of Present Illness Ms. Kim is a 53 yo woman with history of CHF with mitral valve replacement and pulmonary hypertension, hepatomegaly with ascites who presents with worsening ascites. Recently hospitalized in late August also with symptomatic ascites requiring therapeutic paracentesis. Since discharge she reports she has been compliant with all medications but abdominal swelling has progressively worsened. No recent hospitalizations, she has not had paracentesis since 09/20. Otherwise no new complaints. In the ED she was afebrile, vitals unremarkable. Labs notable for Cr 1.35 and K 5.4. ROS She denies recent fever, chills, night sweats, anorexia, weight loss, headache, dizziness, chest pain, palpitations, dyspnea, cough, nausea, vomiting, diarrhea, constipation, dysuria, hematuria. PMH/Family/Social Past Medical History insulin-dependent type 2 diabetes mellitus, congestive heart failure, pulmonary hypertension, atrial fibrillation on Coumadin, hypothyroidism Medications Current Medications Ondansetron HCl (Zofran Inj) 4 mg BRIDGE ORDER PRN IV NAUSEA/VOMITING; Start 11/26/18 at 22:00; Stop 11/27/18 at 21:59 Acetaminophen (Tylenol Tab) 650 mg ER BRIDGE PRN PO .MILD PAIN 1-3 OR TEMP; Start 11/26/18 at 22:00; Stop 11/27/18 at 21:59 IV Flush (NS 3 ml) 3 ml PER PROTOCOL IV ; Start 11/27/18 at 00:30; Status UNV Ondansetron HCl (Zofran Inj) 4 mg Q6H PRN IV NAUSEA/VOMITING; Start 11/27/18 at 00:30; Status UNV Acetaminophen (Tylenol Tab) 650 mg Q6H PRN PO .PAIN 1-3 OR TEMP; Start 11/27/18 at 00:30; Status UNV Coded Allergies: morphine (Verified Allergy, Unknown, 09/13/18) Past Surgical History Bioprosthetic mitral valve replacement, cholecystectomy, appendectomy, 1 Past Surgical Hx: other Family History Significant Family History: no pertinent family hx Social History Alcohol Use: none Smoking Status: Never smoker Drug Use: none Exam/Review of Systems Vital Signs Vitals Vital Signs Date Temp Pulse Resp B/P (MAP) Pulse Ox O2 O2 Flow FiO2 Time Delivery Rate 11/26/18 97.5 85 20 111/68 95 23:00 (82) 11/26/18 Room Air 22:30 Exam Exam Gen: Anasarcic woman awake and alert, responsive, on nonrebreather facemask. Eyes: PERRL, no icterus HEENT: Moist mucous membranes, clear oropharynx Neck: Supple, no lymphadenopathy, no JVD Card: Regular rate and rhythm, 2/6 systolic murmur Pulm: Clear to auscultation bilaterally Abd: Very distended, nontender, slightly indurated skin throughout with striae, slightly tympanic. Well healed open piter scar. Ext: 2+ LE edema bilaterally Skin: warm, dry, well perfused. JULIO ARCHIBALD MD Nov 27, 2018 00:43
[2018-11-27] MEDS ORDERED: GLUCOSE GEL 15 GRAM TUBE BUCCAL PRN (01:00)
[2018-11-27] MEDS ORDERED: GLUCOSE GEL 15 GRAM TUBE PO PRN ×2 (01:00)
[2018-11-27] MEDS ORDERED: GLUCAGON 1 MG INJ IM PRN (01:00)
[2018-11-27] MEDS ORDERED: DEXTROSE 50% 50 ML SYRINGE IV PRN ×2 (01:00)
[2018-11-27] MEDS: ACETAMINOPHEN 325 MG TAB PO PRN ×2 (01:52→11:57)
[2018-11-27] MEDS ORDERED: ACCU-CHEK XX SCH (02:00)
[2018-11-27] MEDS: BUMETANIDE 1 MG TAB PO SCH ×2 (05:34→17:47)
[2018-11-27] MEDS ORDERED: INSULIN ASPART [NOVOLOG] 3 ML PEN SC SCH ×2 (08:00→13:00)
[2018-11-27] MEDS: SILDENAFIL 20 MG TAB PO SCH ×3 (08:33→20:19)
[2018-11-27] MEDS: LORATADINE 10 MG TAB PO SCH (08:33)
[2018-11-27] MEDS: FERROUS SULFATE (EC) 325 MG TAB PO SCH (08:33)
[2018-11-27] MEDS ORDERED: TRIAMCINOLONE ACET 0.1% 15 GM OINT TOP SCH (09:00)
--- NOTE | 2018-11-27 10:01 | PN ---
Date/Time of Note Date/Time of Note DATE: 11/27/18 TIME: 10:01 Assessment/Plan VTE Prophylaxis Risk score (from Ns)>0 risk: 2 SCD applied (from Ns): Yes Pharmacological prophylaxis: warfarin tx Lines/Catheters IV Catheter Type (from [facility]): Saline Lock Assessment/Plan Assessment/Plan 1. Ascites - Paracentesis ordered with last performed in August - Diuretics on board - noted with early changes of cirrhosis seen on RUQ US 08/2018 2. Acute renal insufficiency - mild - most likely secondary to overload - hopefully improve following paracentesis - if no improvement, will consult Nephrology. 3. Uncontrolled diabetes - A1c noted - Will continue lantus and increase once tolerating more PO intake - ISS and accuchecks 4. Compensated heart failure - continue current medications but holding LES inhibitor 5. Afib - rate controlled - on Warfarin 6. Mitral Valve replacement - continue Warfarin 7. Disposition - Awaiting paracentesis today. Further clinical course based on renal function and abdominal distension progression Result Diagram: 11/27/18 0600 11/27/18 0600 Results 24hrs Laboratory Tests Test 11/26/18 18:50 11/26/18 23:44 11/27/18 06:00 11/27/18 08:14 White Blood Count 5.5 5.1 Red Blood Count 3.76 #L 3.72 L Hemoglobin 10.4 L 10.2 L Hematocrit 33.5 L 33.2 L Mean Corpuscular 89.1 89.2 Volume Mean Corpuscular 27.7 L 27.4 L Hemoglobin Mean Corpuscular 31.0 L 30.7 L Hemoglobin Concent Red Cell Distribution 18.2 H 18.0 H Width Platelet Count 221 182 Mean Platelet Volume 10.5 H 9.6 Immature Granulocytes 0.500 H 0.400 % Neutrophils % 70.3 61.8 Lymphocytes % 17.0 23.9 Monocytes % 9.3 9.9 Eosinophils % 2.4 3.0 Basophils % 0.5 1.0 Nucleated Red Blood 0.0 0.0 Cells % Immature Granulocytes 0.030 0.020 # Neutrophils # 3.8 3.1 Lymphocytes # 0.9 1.2 Monocytes # 0.5 0.5 Eosinophils # 0.1 0.2 Basophils # 0.0 0.1 Nucleated Red Blood 0.0 0.0 Cells # Prothrombin Time 25.7 #H Prothrombin Time Ratio 2.0 INR International 2.34 Normalized Ratio Activated 37.0 H Partial Thromboplast Time Sodium Level 140 140 Potassium Level 5.4 H 5.1 Chloride Level 107 110 Carbon Dioxide Level 23 22 Anion Gap 10 8 Blood Urea Nitrogen 51 H 46 H Creatinine 1.35 H 1.20 H Est Glomerular Filtrat 41 L 47 L Rate mL/min Glucose Level 84 74 Calcium Level 9.1 8.9 Total Bilirubin 0.6 0.9 Direct Bilirubin 0.00 0.00 Indirect Bilirubin 0.6 0.9 Aspartate Amino 35 29 Transf (AST/SGOT) Alanine 30 27 Aminotransferase (ALT/ SGPT) Alkaline Phosphatase 119 106 Total Protein 7.7 7.0 Albumin 4.0 3.7 Globulin 3.70 H 3.30 H Albumin/Globulin Ratio 1.08 1.12 Lipase 111 Bedside Glucose 77 76 Hemoglobin A1c 9.2 H Phosphorus Level 4.7 Magnesium Level 2.5 Thyroid Stimulating 7.010 H Hormone (TSH) Subjective 24 Hr Interval Summary Free Text/Dictation Patient denies any acute pain. States last paracentesis was in August. No acute overnight events. Exam/Review of Systems Exam Vitals Vital Signs Date Temp Pulse Resp B/P (MAP) Pulse Ox O2 O2 Flow FiO2 Time Delivery Rate 11/27/18 97.5 86 18 95/55 (68) 98 08:07 11/26/18 Room Air 22:30 Exam General: Patient currently lying in bed, no acute distress Neck: Supple Lungs: Clear to auscultation bilaterally no crackles rales or wheezing Heart: Normal S1-S2, Regular rhythm and rate. systolic murmur appreciated Abdomen: Soft, nontender, very distended, indurations with striae. fluid shift. Extremities: Edema lower extremities bilaterally Results Results 24hrs Laboratory Tests Test 11/26/18 18:50 11/26/18 23:44 11/27/18 06:00 11/27/18 08:14 White Blood Count 5.5 5.1 Red Blood Count 3.76 #L 3.72 L Hemoglobin 10.4 L 10.2 L Hematocrit 33.5 L 33.2 L Mean Corpuscular 89.1 89.2 Volume Mean Corpuscular 27.7 L 27.4 L Hemoglobin Mean Corpuscular 31.0 L 30.7 L Hemoglobin Concent Red Cell Distribution 18.2 H 18.0 H Width Platelet Count 221 182 Mean Platelet Volume 10.5 H 9.6 Immature Granulocytes 0.500 H 0.400 % Neutrophils % 70.3 61.8 Lymphocytes % 17.0 23.9 Monocytes % 9.3 9.9 Eosinophils % 2.4 3.0 Basophils % 0.5 1.0 Nucleated Red Blood 0.0 0.0 Cells % Immature Granulocytes 0.030 0.020 # Neutrophils # 3.8 3.1 Lymphocytes # 0.9 1.2 Monocytes # 0.5 0.5 Eosinophils # 0.1 0.2 Basophils # 0.0 0.1 Nucleated Red Blood 0.0 0.0 Cells # Prothrombin Time 25.7 #H Prothrombin Time Ratio 2.0 INR International 2.34 Normalized Ratio Activated 37.0 H Partial Thromboplast Time Sodium Level 140 140 Potassium Level 5.4 H 5.1 Chloride Level 107 110 Carbon Dioxide Level 23 22 Anion Gap 10 8 Blood Urea Nitrogen 51 H 46 H Creatinine 1.35 H 1.20 H Est Glomerular Filtrat 41 L 47 L Rate mL/min Glucose Level 84 74 Calcium Level 9.1 8.9 Total Bilirubin 0.6 0.9 Direct Bilirubin 0.00 0.00 Indirect Bilirubin 0.6 0.9 Aspartate Amino 35 29 Transf (AST/SGOT) Alanine 30 27 Aminotransferase (ALT/ SGPT) Alkaline Phosphatase 119 106 Total Protein 7.7 7.0 Albumin 4.0 3.7 Globulin 3.70 H 3.30 H Albumin/Globulin Ratio 1.08 1.12 Lipase 111 Bedside Glucose 77 76 Hemoglobin A1c 9.2 H Phosphorus Level 4.7 Magnesium Level 2.5 Thyroid Stimulating 7.010 H Hormone (TSH) Medications Medication Current Medications Ondansetron HCl (Zofran Inj) 4 mg BRIDGE ORDER PRN IV NAUSEA/VOMITING; Start 11/26/18 at 22:00; Stop 11/27/18 at 21:59 Acetaminophen (Tylenol Tab) 650 mg ER BRIDGE PRN PO .MILD PAIN 1-3 OR TEMP Last administered on 11/27/18at 01:52; Admin Dose 650 MG; Start 11/26/18 at 22:00; Stop 11/27/18 at 21:59 IV Flush (NS 3 ml) 3 ml PER PROTOCOL IV ; Start 11/27/18 at 00:30 Ondansetron HCl (Zofran Inj) 4 mg Q6H PRN IV NAUSEA/VOMITING; Start 11/27/18 at 00:30 Acetaminophen (Tylenol Tab) 650 mg Q6H PRN PO .PAIN 1-3 OR TEMP; Start 11/27/18 at 00:30 Bumetanide (Bumex) 1 mg BID DIURETICS PO Last administered on 11/27/18at 05:34; Admin Dose 1 MG; Start 11/27/18 at 06:00 Carvedilol (Coreg) 6.25 mg BID PO ; Start 11/27/18 at 09:00 Digoxin (Digoxin) 0.125 mg DAILY@1300 PO ; Start 11/27/18 at 13:00 Ferrous Sulfate (Ferrous Sulfate (Ec)) 325 mg DAILY PO Last administered on 11/27/18at 08:33; Admin Dose 325 MG; Start 11/27/18 at 09:00 Insulin Glargine (Lantus) 10 units QHS SC ; Start 11/27/18 at 21:00 Loratadine (Claritin) 10 mg DAILY PO Last administered on 11/27/18at 08:33; Admin Dose 10 MG; Start 11/27/18 at 09:00 Sildenafil Citrate (Revatio) 20 mg TID PO Last administered on 11/27/18at 08:33; Admin Dose 20 MG; Start 11/27/18 at 09:00 Spironolactone (Aldactone) 25 mg DAILY PO ; Start 11/27/18 at 09:00 Triamcinolone Acetonide (Kenalog 0.1% Oint) 1 applic BID TOP ; Start 11/27/18 at 09:00 Warfarin Sodium (Coumadin) 6 mg DAILY@1700 PO ; Start 11/27/18 at 17:00 Diagnostic Test (Pha) (Accu-Chek) 1 ea 02 XX ; Start 11/27/18 at 02:00 Insulin Aspart (Novolog Insulin Pen) NOVOLOG *MODERATE* ALGORITHM WITH MEALS BEDTIME SC ; Start 11/27/18 at 08:00 Atorvastatin Calcium (Lipitor) 10 mg DAILY@21 PO ; Start 11/27/18 at 21:00 Miscellaneous Information 1 ea NOTE XX ; Start 11/27/18 at 01:00 Glucose (Glutose) 15 gm Q15M PRN PO DECREASED GLUCOSE; Start 11/27/18 at 01:00 Glucose (Glutose) 22.5 gm Q15M PRN PO DECREASED GLUCOSE; Start 11/27/18 at 01:00 Dextrose (D50w Syringe) 25 ml Q15M PRN IV DECREASED GLUCOSE; Start 11/27/18 at 01:00 Dextrose (D50w Syringe) 50 ml Q15M PRN IV DECREASED GLUCOSE; Start 11/27/18 at 01:00 Glucagon (Glucagen) 1 mg Q15M PRN IM DECREASED GLUCOSE; Start 11/27/18 at 01:00 Glucose (Glutose) 15 gm Q15M PRN BUCCAL DECREASED GLUCOSE; Start 11/27/18 at 01:00 Miscellaneous Information Patients own medicat... BID@10, XX ; Start 11/27/18 at 10:00 CARTER NATH MD Nov 27, 2018 10:01
[2018-11-27] MEDS: DIGOXIN 0.125 MG TAB PO SCH (12:02)
[2018-11-27] MEDS: SPIRONOLACTONE 25 MG TAB PO SCH (12:03)
[2018-11-27] MEDS: INSULIN ASPART [NOVOLOG] 3 ML PEN SC SCH ×2 (17:42→20:29)
[2018-11-27] MEDS: INSULIN GLARGINE [LANTus] (100 UNITS/ML) SYG SC SCH (20:12)
[2018-11-27] MEDS: ATORVASTATIN 10 MG TAB PO SCH (20:18)
[2018-11-27] MEDS ORDERED: NON-FORMULARY/PATIENT OWN MED (Simvastatin* (Zocor*) 20 MG) PO SCH (21:00)
[2018-11-28] VITALS (7 sets, daily range): BP systolic 93–118; BP diastolic 51–65; PULSE 86–89; RESP 18–20
[2018-11-28] MEDS: INSULIN ASPART [NOVOLOG] 3 ML PEN SC SCH ×6 (01:00→20:14)
[2018-11-28] MEDS: ACCU-CHEK XX SCH (02:00)
[2018-11-28] MEDS: BUMETANIDE 1 MG TAB PO SCH ×2 (06:26→17:43)
[2018-11-28] MEDS: SILDENAFIL 20 MG TAB PO SCH ×3 (08:43→21:36)
[2018-11-28] MEDS: LORATADINE 10 MG TAB PO SCH (08:43)
[2018-11-28] MEDS: FERROUS SULFATE (EC) 325 MG TAB PO SCH (08:43)
[2018-11-28] MEDS: SPIRONOLACTONE 25 MG TAB PO SCH (08:43)
--- NOTE | 2018-11-28 10:25 | PN ---
Date/Time of Note Date/Time of Note DATE: 11/28/18 TIME: 10:25 Assessment/Plan VTE Prophylaxis Risk score (from Nsg)>0 risk: 3 SCD applied (from Nsg): Yes Pharmacological prophylaxis: warfarin tx Lines/Catheters IV Catheter Type (from Nrsg): Saline Lock Assessment/Plan Assessment/Plan 1. Ascites - will need to reverse INR in order for paracentesis to be performed and then restart Coumadin with LW bridging once completed - Paracentesis ordered with last performed in August. - Diuretics on board - noted with early changes of cirrhosis seen on RUQ US 08/2018 2. Acute renal insufficiency- improving - mild - most likely secondary to overload 3. Uncontrolled diabetes- improved - A1c noted - Continue insulin dosages and will adjust as needed for better glucose control - ISS and accuchecks 4. Compensated heart failure - continue current medications but holding LES inhibitor 5. Afib - rate controlled - on Warfarin 6. Mitral Valve replacement - on Warfarin 7. Disposition - Reversing INR for paracentesis and after performed will need to restart bridging with INR goal 2.5 Result Diagram: 11/28/18 0531 11/28/18 0531 Results 24hrs Laboratory Tests Test 11/27/18 13:22 11/27/18 17:16 11/27/18 20:06 11/28/18 01:12 Bedside Glucose 98 80 142 133 Test 11/28/18 05:09 11/28/18 05:31 11/28/18 08:22 Bedside Glucose 108 101 White Blood Count 4.8 Red Blood Count 3.45 L Hemoglobin 9.6 L Hematocrit 30.6 L Mean Corpuscular Volume 88.7 Mean Corpuscular 27.8 L Hemoglobin Mean Corpuscular 31.4 L Hemoglobin Concent Red Cell Distribution 17.8 H Width Platelet Count 193 Mean Platelet Volume 9.8 Immature Granulocytes % 0.200 Neutrophils % 66.6 Lymphocytes % 17.6 Monocytes % 11.8 H Eosinophils % 3.2 Basophils % 0.6 Nucleated Red Blood 0.0 Cells % Immature Granulocytes # 0.010 Neutrophils # 3.2 Lymphocytes # 0.8 Monocytes # 0.6 Eosinophils # 0.2 Basophils # 0.0 Nucleated Red Blood 0.0 Cells # Sodium Level 140 Potassium Level 5.1 Chloride Level 107 Carbon Dioxide Level 25 Anion Gap 8 Blood Urea Nitrogen 45 H Creatinine 1.16 H Glucose Level 108 Calcium Level 9.2 Phosphorus Level 4.8 Magnesium Level 2.1 Albumin 3.8 Subjective 24 Hr Interval Summary Free Text/Dictation Patient denies any acute issues and no overnight events. Exam/Review of Systems Exam Vitals Vital Signs Date Temp Pulse Resp B/P (MAP) Pulse Ox O2 O2 Flow FiO2 Time Delivery Rate 11/28/18 98.1 87 18 118/62 96 07:46 (80) 11/26/18 Room Air 22:30 Intake and Output 11/27/18 11/27/18 11/28/18 1515:00 23:00 07:00 IntakeIntake Total 660 ml 400 ml OutputOutput Total 440 ml BalanceBalance 660 ml -40 ml Exam General: Patient currently lying in bed, no acute distress Neck: Supple Lungs: Clear to auscultation bilaterally no crackles rales or wheezing Heart: Normal S1-S2, Regular rhythm and rate. systolic murmur appreciated Abdomen: Soft, nontender, very distended, indurations with striae. fluid shift. Extremities: Edema lower extremities bilaterally Results Results 24hrs Laboratory Tests Test 11/27/18 13:22 11/27/18 17:16 11/27/18 20:06 11/28/18 01:12 Bedside Glucose 98 80 142 133 Test 11/28/18 05:09 11/28/18 05:31 11/28/18 08:22 Bedside Glucose 108 101 White Blood Count 4.8 Red Blood Count 3.45 L Hemoglobin 9.6 L Hematocrit 30.6 L Mean Corpuscular Volume 88.7 Mean Corpuscular 27.8 L Hemoglobin Mean Corpuscular 31.4 L Hemoglobin Concent Red Cell Distribution 17.8 H Width Platelet Count 193 Mean Platelet Volume 9.8 Immature Granulocytes % 0.200 Neutrophils % 66.6 Lymphocytes % 17.6 Monocytes % 11.8 H Eosinophils % 3.2 Basophils % 0.6 Nucleated Red Blood 0.0 Cells % Immature Granulocytes # 0.010 Neutrophils # 3.2 Lymphocytes # 0.8 Monocytes # 0.6 Eosinophils # 0.2 Basophils # 0.0 Nucleated Red Blood 0.0 Cells # Sodium Level 140 Potassium Level 5.1 Chloride Level 107 Carbon Dioxide Level 25 Anion Gap 8 Blood Urea Nitrogen 45 H Creatinine 1.16 H Glucose Level 108 Calcium Level 9.2 Phosphorus Level 4.8 Magnesium Level 2.1 Albumin 3.8 Medications Medication Current Medications IV Flush (NS 3 ml) 3 ml PER PROTOCOL IV ; Start 11/27/18 at 00:30 Ondansetron HCl (Zofran Inj) 4 mg Q6H PRN IV NAUSEA/VOMITING; Start 11/27/18 at 00:30 Acetaminophen (Tylenol Tab) 650 mg Q6H PRN PO .PAIN 1-3 OR TEMP; Start 11/27/18 at 00:30 Bumetanide (Bumex) 1 mg BID DIURETICS PO Last administered on 11/28/18 06:26; Admin Dose 1 MG; Start 11/27/18 at 06:00 Carvedilol (Coreg) 6.25 mg BID PO Last administered on 11/28/18 08:43; Admin Dose 6.25 MG; Start 11/27/18 at 09:00 Digoxin (Digoxin) 0.125 mg DAILY@1300 PO Last administered on 11/27/18 12:02; Admin Dose 0.125 MG; Start 11/27/18 at 13:00 Ferrous Sulfate (Ferrous Sulfate (Ec)) 325 mg DAILY PO Last administered on 11/28/18 08:43; Admin Dose 325 MG; Start 11/27/18 at 09:00 Insulin Glargine (Lantus) 10 units QHS SC Last administered on 11/27/18 20:12; Admin Dose 10 UNITS; Start 11/27/18 at 21:00 Loratadine (Claritin) 10 mg DAILY PO Last administered on 11/28/18 08:43; Admin Dose 10 MG; Start 11/27/18 at 09:00 Sildenafil Citrate (Revatio) 20 mg TID PO Last administered on 11/28/18 08:43; Admin Dose 20 MG; Start 11/27/18 at 09:00 Spironolactone (Aldactone) 25 mg DAILY PO Last administered on 11/28/18 08:43; Admin Dose 25 MG; Start 11/27/18 at 09:00 Warfarin Sodium (Coumadin) 6 mg DAILY@1700 PO ; Start 11/27/18 at 17:00; Status Hold Atorvastatin Calcium (Lipitor) 10 mg DAILY@21 PO Last administered on 11/27/18 20:18; Admin Dose 10 MG; Start 11/27/18 at 21:00 Miscellaneous Information 1 ea NOTE XX ; Start 11/27/18 at 01:00 Glucose (Glutose) 15 gm Q15M PRN PO DECREASED GLUCOSE; Start 11/27/18 at 01:00 Glucose (Glutose) 22.5 gm Q15M PRN PO DECREASED GLUCOSE; Start 11/27/18 at 01:00 Dextrose (D50w Syringe) 25 ml Q15M PRN IV DECREASED GLUCOSE; Start 11/27/18 at 01:00 Dextrose (D50w Syringe) 50 ml Q15M PRN IV DECREASED GLUCOSE; Start 11/27/18 at 01:00 Glucagon (Glucagen) 1 mg Q15M PRN IM DECREASED GLUCOSE; Start 11/27/18 at 01:00 Glucose (Glutose) 15 gm Q15M PRN BUCCAL DECREASED GLUCOSE; Start 11/27/18 at 01:00 Miscellaneous Information Patients own medicat... BID@10,16 XX ; Start 11/27/18 at 10:00 Diagnostic Test (Pha) (Accu-Chek) 1 ea 02 XX ; Start 11/28/18 at 02:00 Insulin Aspart (Novolog Insulin Pen) NOVOLOG *MODERATE* ALGORI... Q4 SC ; Start 11/28/18 at 01:00 CARTER NATH MD Nov 28, 2018 10:25
[2018-11-28] MEDS ORDERED: PHYTONADIONE 10 MG/ML INJ SC ONE (13:00)
[2018-11-28] MEDS: DIGOXIN 0.125 MG TAB PO SCH (14:52)
[2018-11-28] MEDS ORDERED: ALBUMIN HUMAN 25% 50 ML IV ONE (16:30)
[2018-11-28] MEDS: WARFARIN 3 MG TAB PO SCH (17:39)
[2018-11-28] MEDS: INSULIN GLARGINE [LANTus] (100 UNITS/ML) SYG SC SCH (20:15)
[2018-11-28] MEDS: ATORVASTATIN 10 MG TAB PO SCH (20:16)
[2018-11-28] MEDS: ACETAMINOPHEN 325 MG TAB PO PRN (20:20)
[2018-11-29] MEDS: ACCU-CHEK XX SCH (02:00)
[2018-11-29 02:11] VITALS: BP 98/57; PULSE 87; RESP 16
[2018-11-29] MEDS: BUMETANIDE 1 MG TAB PO SCH ×2 (06:04→17:41)
[2018-11-29 08:00] VITALS: BP 96/54; PULSE 61; RESP 18
[2018-11-29] MEDS: INSULIN ASPART [NOVOLOG] 3 ML PEN SC SCH ×4 (08:00→21:48)
[2018-11-29] MEDS: SPIRONOLACTONE 25 MG TAB PO SCH ×2 (08:28→21:46)
[2018-11-29] MEDS: FERROUS SULFATE (EC) 325 MG TAB PO SCH (08:28)
[2018-11-29] MEDS: LORATADINE 10 MG TAB PO SCH (08:28)
[2018-11-29] MEDS: SILDENAFIL 20 MG TAB PO SCH ×3 (08:30→21:45)
[2018-11-29 14:00] VITALS: BP 94/50; PULSE 89; RESP 17
[2018-11-29] MEDS: DIGOXIN 0.125 MG TAB PO SCH (14:23)
[2018-11-29] MEDS ORDERED: ENOXAPARIN 100 MG/ML SYG SC SCH ×2 (14:46→21:00)
--- NOTE | 2018-11-29 15:32 | PN ---
Date/Time of Note Date/Time of Note DATE: 11/29/18 TIME: 15:32 Objective Vitals Vital Signs Date Temp Pulse Resp B/P (MAP) Pulse Ox O2 O2 Flow FiO2 Time Delivery Rate 11/29/18 98.0 61 18 96/54 (68) 94 Room Air 08:00 Intake and Output 11/28/18 11/28/18 11/29/18 1515:00 23:00 07:00 IntakeIntake Total 50 ml BalanceBalance 50 ml Results Result Diagram: 11/29/18 0529 11/29/18 0529 Medications Medications Current Medications IV Flush (NS 3 ml) 3 ml PER PROTOCOL IV ; Start 11/27/18 at 00:30 Ondansetron HCl (Zofran Inj) 4 mg Q6H PRN IV NAUSEA/VOMITING; Start 11/27/18 at 00:30 Acetaminophen (Tylenol Tab) 650 mg Q6H PRN PO .PAIN 1-3 OR TEMP Last administered on 11/28/18 20:20; Admin Dose 650 MG; Start 11/27/18 at 00:30 Bumetanide (Bumex) 1 mg BID DIURETICS PO Last administered on 11/29/18 06:04; Admin Dose 1 MG; Start 11/27/18 at 06:00 Carvedilol (Coreg) 6.25 mg BID PO Last administered on 11/28/18 08:43; Admin Dose 6.25 MG; Start 11/27/18 at 09:00 Digoxin (Digoxin) 0.125 mg DAILY@1300 PO Last administered on 11/29/18 14:23; Admin Dose 0.125 MG; Start 11/27/18 at 13:00 Ferrous Sulfate (Ferrous Sulfate (Ec)) 325 mg DAILY PO Last administered on 11/29/18 08:28; Admin Dose 325 MG; Start 11/27/18 at 09:00 Insulin Glargine (Lantus) 10 units QHS SC Last administered on 11/28/18 20:15; Admin Dose 10 UNITS; Start 11/27/18 at 21:00 Loratadine (Claritin) 10 mg DAILY PO Last administered on 11/29/18 08:28; Admin Dose 10 MG; Start 11/27/18 at 09:00 Sildenafil Citrate (Revatio) 20 mg TID PO Last administered on 6/3/19at 14:22; Admin Dose 20 MG; Start 11/27/18 at 09:00 Warfarin Sodium (Coumadin) 6 mg DAILY@1700 PO Last administered on 11/28/18at 17:39; Admin Dose 6 MG; Start 11/27/18 at 17:00 Atorvastatin Calcium (Lipitor) 10 mg DAILY@21 PO Last administered on 11/28/18at 20:16; Admin Dose 10 MG; Start 11/27/18 at 21:00 Miscellaneous Information 1 ea NOTE XX ; Start 11/27/18 at 01:00 Glucose (Glutose) 15 gm Q15M PRN PO DECREASED GLUCOSE; Start 11/27/18 at 01:00 Glucose (Glutose) 22.5 gm Q15M PRN PO DECREASED GLUCOSE; Start 11/27/18 at 01:00 Dextrose (D50w Syringe) 25 ml Q15M PRN IV DECREASED GLUCOSE; Start 11/27/18 at 01:00 Dextrose (D50w Syringe) 50 ml Q15M PRN IV DECREASED GLUCOSE; Start 11/27/18 at 01:00 Glucagon (Glucagen) 1 mg Q15M PRN IM DECREASED GLUCOSE; Start 11/27/18 at 01:00 Glucose (Glutose) 15 gm Q15M PRN BUCCAL DECREASED GLUCOSE; Start 11/27/18 at 01:00 Miscellaneous Information Patients own medicat... BID@10,16 XX ; Start 11/27/18 at 10:00 Diagnostic Test (Pha) (Accu-Chek) 1 ea 02 XX ; Start 11/28/18 at 02:00 Insulin Aspart (Novolog Insulin Pen) NOVOLOG *MODERATE* ALGORITHM WITH MEALS BEDTIME SC Last administered on 11/29/18at 12:07; Admin Dose 4 UNIT; Start 11/28/18 at 18:05 Spironolactone (Aldactone) 25 mg BID PO ; Start 11/29/18 at 21:00 VTE Prophylaxis Risk score (from Nsg)>0 risk: 3 SCD applied (from Nsg): No SCD contraindication: other Lines/Catheters IV Catheter Type: Cisse in Place: No Assessment/Plan Hospital Course Subjective Patient doing okay, complains of abdominal pain but it is not different from her chronic abdominal pain when she has ascites per patient Objective Physical exam General: Patient is laying in bed and answers questions appropriately Mentation: Patient is alert and oriented 4, Head: Normocephalic atraumatic Eyes: EOMI, pupils reactive to light Neck: Supple, nontender, midline Respiratory: Clear to auscultation bilaterally Cardiovascular: regular rate, no obvious murmurs Gastrointestinal: Mildly-tender to palpation, bowel sounds heard. Moderately distended Neurological: Moves all extremities spontaneously Skin: No new skin lesions Assessment/Plan 1. Ascites secondary to liver cirrhosis -10 L taken out with paracentesis - Diuretics on board, increase spironolactone as tolerated as this is the last diuretic that can be adjusted. - noted with early changes of cirrhosis seen on RUQ US 08/2018 2. Acute renal insufficiency- improving - mild - most likely secondary to overload 3. Uncontrolled diabetes- improved - A1c noted - Continue insulin dosages and will adjust as needed for better glucose control - ISS and accuchecks 4. Compensated heart failure - continue current medications but holding LES inhibitor, will restart when renal function continues to improve 5. Afib - rate controlled - on Warfarin, goal is a 2-3 6. Mitral Valve replacement - on Warfarin -On record, patient has bioprosthetic valve, INR goal will still be 2-3 for A. fib, stop Lovenox bridge as patient is now therapeutic, continue current warfarin 7. Disposition -Monitor for bleeding at paracentesis site, will need to adjust diuretics, KAREN VIERA Nov 29, 2018 15:32
[2018-11-29] MEDS: WARFARIN 3 MG TAB PO SCH (17:41)
[2018-11-29 20:00] VITALS: BP 109/57; PULSE 88; RESP 18
[2018-11-29] MEDS: ATORVASTATIN 10 MG TAB PO SCH (21:44)
[2018-11-29] MEDS: INSULIN GLARGINE [LANTus] (100 UNITS/ML) SYG SC SCH (21:47)
[2018-11-30 02:00] VITALS: BP 96/52; PULSE 87; RESP 19
[2018-11-30] MEDS: ACCU-CHEK XX SCH (02:00)
[2018-11-30] MEDS: BUMETANIDE 1 MG TAB PO SCH ×2 (05:55→17:58)
[2018-11-30] MEDS: INSULIN ASPART [NOVOLOG] 3 ML PEN SC SCH ×4 (08:00→20:50)
[2018-11-30 08:32] VITALS: BP 97/51; PULSE 86; RESP 18
[2018-11-30] MEDS: LORATADINE 10 MG TAB PO SCH (08:39)
[2018-11-30] MEDS: SPIRONOLACTONE 25 MG TAB PO SCH ×2 (08:39→20:53)
[2018-11-30] MEDS: SILDENAFIL 20 MG TAB PO SCH ×3 (08:39→20:54)
[2018-11-30] MEDS: FERROUS SULFATE (EC) 325 MG TAB PO SCH (08:39)
[2018-11-30] MEDS ORDERED: PANTOPRAZOLE (EC) 40 MG TAB PO ONE (11:00)
[2018-11-30] MEDS ORDERED: MAGNESIUM SULFATE 2 GM/50 ML 50 ML IVPB ONE (12:00)
[2018-11-30] MEDS: DIGOXIN 0.125 MG TAB PO SCH (14:27)
[2018-11-30 14:31] VITALS: BP 102/52; PULSE 87; RESP 16
--- NOTE | 2018-11-30 15:19 | PN ---
Date/Time of Note Date/Time of Note DATE: 11/30/18 TIME: 15:17 Objective Vitals Vital Signs Date Temp Pulse Resp B/P (MAP) Pulse Ox O2 O2 Flow FiO2 Time Delivery Rate 11/30/18 98.4 87 16 102/52 97 Room Air 14:31 (69) Intake and Output 11/29/18 11/29/18 11/30/18 1515:00 23:00 07:00 IntakeIntake Total 600 ml 500 ml BalanceBalance 600 ml 500 ml Results Result Diagram: 11/30/187 11/30/18446 Medications Medications Current Medications IV Flush (NS 3 ml) 3 ml PER PROTOCOL IV ; Start 11/27/18 at 00:30 Ondansetron HCl (Zofran Inj) 4 mg Q6H PRN IV NAUSEA/VOMITING; Start 11/27/18 at 00:30 Acetaminophen (Tylenol Tab) 650 mg Q6H PRN PO .PAIN 1-3 OR TEMP Last administered on 11/28/18 20:20; Admin Dose 650 MG; Start 11/27/18 at 00:30 Bumetanide (Bumex) 1 mg BID DIURETICS PO Last administered on 11/30/18 05:55; Admin Dose 1 MG; Start 11/27/18 at 06:00 Digoxin (Digoxin) 0.125 mg DAILY@1300 PO Last administered on 11/30/18 14:27; Admin Dose 0.125 MG; Start 11/27/18 at 13:00 Ferrous Sulfate (Ferrous Sulfate (Ec)) 325 mg DAILY PO Last administered on 11/30/18 08:39; Admin Dose 325 MG; Start 11/27/18 at 09:00 Insulin Glargine (Lantus) 10 units QHS SC Last administered on 11/29/18 21:47; Admin Dose 10 UNITS; Start 11/27/18 at 21:00 Loratadine (Claritin) 10 mg DAILY PO Last administered on 11/30/18 08:39; Admin Dose 10 MG; Start 11/27/18 at 09:00 Sildenafil Citrate (Revatio) 20 mg TID PO Last administered on 11/30/18 14:30; Admin Dose 20 MG; Start 11/27/18 at 09:00 Warfarin Sodium (Coumadin) 6 mg DAILY@1700 PO Last administered on 6/3/19at 17:41; Admin Dose 6 MG; Start 11/27/18 at 17:00 Atorvastatin Calcium (Lipitor) 10 mg DAILY@21 PO Last administered on 11/29/18at 21:44; Admin Dose 10 MG; Start 11/27/18 at 21:00 Miscellaneous Information 1 ea NOTE XX ; Start 11/27/18 at 01:00 Glucose (Glutose) 15 gm Q15M PRN PO DECREASED GLUCOSE; Start 11/27/18 at 01:00 Glucose (Glutose) 22.5 gm Q15M PRN PO DECREASED GLUCOSE; Start 11/27/18 at 01:00 Dextrose (D50w Syringe) 25 ml Q15M PRN IV DECREASED GLUCOSE; Start 11/27/18 at 01:00 Dextrose (D50w Syringe) 50 ml Q15M PRN IV DECREASED GLUCOSE; Start 11/27/18 at 01:00 Glucagon (Glucagen) 1 mg Q15M PRN IM DECREASED GLUCOSE; Start 11/27/18 at 01:00 Glucose (Glutose) 15 gm Q15M PRN BUCCAL DECREASED GLUCOSE; Start 11/27/18 at 01:00 Miscellaneous Information Patients own medicat... BID@10,16 XX ; Start 11/27/18 at 10:00 Diagnostic Test (Pha) (Accu-Chek) 1 ea 02 XX ; Start 11/28/18 at 02:00 Insulin Aspart (Novolog Insulin Pen) NOVOLOG *MODERATE* ALGORITHM WITH MEALS BEDTIME SC Last administered on 11/30/18at 12:16; Admin Dose 4 UNIT; Start 11/28/18 at 18:05 Spironolactone (Aldactone) 25 mg BID PO Last administered on 11/30/18at 08:39; Admin Dose 25 MG; Start 11/29/18 at 21:00 Carvedilol (Coreg) 3.125 mg BID PO ; Start 11/30/18 at 21:00 Lisinopril (Zestril) 2.5 mg DAILY PO ; Start 12/01/18 at 09:00 Pantoprazole (Protonix Tab) 40 mg DAILY@06 PO ; Start 12/01/18 at 06:00 VTE Prophylaxis Risk score (from Nsg)>0 risk: 2 SCD applied (from Nsg): No SCD contraindication: other Lines/Catheters IV Catheter Type: Cisse in Place: No Assessment/Plan Hospital Course Subjective Patient doing okay, complains of abdominal pain but it is not different from her chronic abdominal pain when she has ascites per patient Objective Physical exam General: Patient is laying in bed and answers questions appropriately Mentation: Patient is alert and oriented 4, Head: Normocephalic atraumatic Eyes: EOMI, pupils reactive to light Neck: Supple, nontender, midline Respiratory: Clear to auscultation bilaterally Cardiovascular: regular rate, no obvious murmurs Gastrointestinal: Mildly-tender to palpation, bowel sounds heard. Moderately distended Neurological: Moves all extremities spontaneously Skin: No new skin lesions Assessment/Plan 1. Ascites secondary to liver cirrhosis -10 L taken out with paracentesis - Diuretics on board, increase spironolactone as tolerated as this is the last diuretic that can be adjusted. - noted with early changes of cirrhosis seen on RUQ US and CT from prior admissions -Patient does not see a GI physician outpatient, only follows with family practitioner, attempt to get referral however that fell through for some reason. 2. Acute renal insufficiency- improving - mild - most likely secondary to overload 3. Uncontrolled diabetes- improved - A1c noted - Continue insulin dosages and will adjust as needed for better glucose control - ISS and accuchecks 4. Compensated heart failure - continue current medications but holding LES inhibitor, will restart when renal function continues to improve 5. Afib - rate controlled - on Warfarin, goal is a 2-3 6. Mitral Valve replacement - on Warfarin -On record, patient has bioprosthetic valve, INR goal will still be 2-3 for A. fib, stop Lovenox bridge as patient is now therapeutic, continue current warfarin 7. Disposition -Continue to adjust diuretics and blood pressure medications, patient high risk for bounce back as she does not have reliable GI follow-up. KAREN VIERA Nov 30, 2018 15:19
[2018-11-30] MEDS: WARFARIN 3 MG TAB PO SCH (17:58)
[2018-11-30 20:00] VITALS: BP 100/54; PULSE 88; RESP 18
[2018-11-30] MEDS: INSULIN GLARGINE [LANTus] (100 UNITS/ML) SYG SC SCH (20:52)
[2018-11-30] MEDS: ATORVASTATIN 10 MG TAB PO SCH (20:53)
[2018-12-01] MEDS: ACCU-CHEK XX SCH (01:05)
[2018-12-01 02:00] VITALS: BP 100/47; PULSE 90; RESP 18
[2018-12-01] MEDS: PANTOPRAZOLE (EC) 40 MG TAB PO SCH (06:03)
[2018-12-01] MEDS: BUMETANIDE 1 MG TAB PO SCH ×2 (06:03→17:37)
[2018-12-01 08:40] VITALS: BP 116/64; PULSE 86; RESP 18
[2018-12-01] MEDS: LORATADINE 10 MG TAB PO SCH (08:42)
[2018-12-01] MEDS: FERROUS SULFATE (EC) 325 MG TAB PO SCH (08:42)
[2018-12-01] MEDS: SILDENAFIL 20 MG TAB PO SCH ×3 (08:42→21:27)
[2018-12-01] MEDS: SPIRONOLACTONE 25 MG TAB PO SCH ×2 (08:42→21:27)
[2018-12-01] MEDS: LISINOPRIL 5 MG TAB PO SCH (08:43)
[2018-12-01] MEDS: INSULIN ASPART [NOVOLOG] 3 ML PEN SC SCH ×4 (08:44→21:31)
[2018-12-01] MEDS ORDERED: MAGNESIUM SULFATE 2 GM/50 ML 50 ML IVPB ONE (10:00)
[2018-12-01] MEDS: DIGOXIN 0.125 MG TAB PO SCH (12:24)
--- NOTE | 2018-12-01 14:22 | PN ---
Date/Time of Note Date/Time of Note DATE: 12/01/18 TIME: 14:21 Objective Vitals Vital Signs Date Temp Pulse Resp B/P (MAP) Pulse Ox O2 O2 Flow FiO2 Time Delivery Rate 12/01/18 98.0 86 18 116/64 95 Room Air 08:40 (81) Intake and Output 11/30/18 11/30/18 12/01/18 1515:00 23:00 07:00 IntakeIntake Total 950 ml 560 ml BalanceBalance 950 ml 560 ml Results Result Diagram: 12/01/18 0546 12/01/18 0546 Medications Medications Current Medications IV Flush (NS 3 ml) 3 ml PER PROTOCOL IV ; Start 11/27/18 at 00:30 Ondansetron HCl (Zofran Inj) 4 mg Q6H PRN IV NAUSEA/VOMITING; Start 11/27/18 at 00:30 Acetaminophen (Tylenol Tab) 650 mg Q6H PRN PO .PAIN 1-3 OR TEMP Last administered on 11/28/18 20:20; Admin Dose 650 MG; Start 11/27/18 at 00:30 Bumetanide (Bumex) 1 mg BID DIURETICS PO Last administered on 12/01/18 06:03; Admin Dose 1 MG; Start 11/27/18 at 06:00 Digoxin (Digoxin) 0.125 mg DAILY@1300 PO Last administered on 12/01/18 12:24; Admin Dose 0.125 MG; Start 11/27/18 at 13:00 Ferrous Sulfate (Ferrous Sulfate (Ec)) 325 mg DAILY PO Last administered on 12/01/18 08:42; Admin Dose 325 MG; Start 11/27/18 at 09:00 Insulin Glargine (Lantus) 10 units QHS SC Last administered on 11/30/18 20:52; Admin Dose 10 UNITS; Start 11/27/18 at 21:00 Loratadine (Claritin) 10 mg DAILY PO Last administered on 12/01/18 08:42; Admin Dose 10 MG; Start 11/27/18 at 09:00 Sildenafil Citrate (Revatio) 20 mg TID PO Last administered on 12/01/18 12:24; Admin Dose 20 MG; Start 11/27/18 at 09:00 Warfarin Sodium (Coumadin) 6 mg DAILY@1700 PO Last administered on 6/4/19at 17:58; Admin Dose 6 MG; Start 11/27/18 at 17:00 Atorvastatin Calcium (Lipitor) 10 mg DAILY@21 PO Last administered on 11/30/18at 20:53; Admin Dose 10 MG; Start 11/27/18 at 21:00 Miscellaneous Information 1 ea NOTE XX ; Start 11/27/18 at 01:00 Glucose (Glutose) 15 gm Q15M PRN PO DECREASED GLUCOSE; Start 11/27/18 at 01:00 Glucose (Glutose) 22.5 gm Q15M PRN PO DECREASED GLUCOSE; Start 11/27/18 at 01:00 Dextrose (D50w Syringe) 25 ml Q15M PRN IV DECREASED GLUCOSE; Start 11/27/18 at 01:00 Dextrose (D50w Syringe) 50 ml Q15M PRN IV DECREASED GLUCOSE; Start 11/27/18 at 01:00 Glucagon (Glucagen) 1 mg Q15M PRN IM DECREASED GLUCOSE; Start 11/27/18 at 01:00 Glucose (Glutose) 15 gm Q15M PRN BUCCAL DECREASED GLUCOSE; Start 11/27/18 at 01:00 Miscellaneous Information Patients own medicat... BID@10,16 XX ; Start 11/27/18 at 10:00 Diagnostic Test (Pha) (Accu-Chek) 1 ea 02 XX ; Start 11/28/18 at 02:00 Insulin Aspart (Novolog Insulin Pen) NOVOLOG *MODERATE* ALGORITHM WITH MEALS BEDTIME SC Last administered on 12/01/18at 12:20; Admin Dose 2 UNIT; Start 11/28/18 at 18:05 Spironolactone (Aldactone) 25 mg BID PO Last administered on 12/01/18at 08:42; Admin Dose 25 MG; Start 11/29/18 at 21:00 Carvedilol (Coreg) 3.125 mg BID PO Last administered on 12/01/18at 08:43; Admin Dose 3.125 MG; Start 11/30/18 at 21:00 Lisinopril (Zestril) 2.5 mg DAILY PO Last administered on 12/01/18at 08:43; Admin Dose 2.5 MG; Start 12/01/18 at 09:00 Pantoprazole (Protonix Tab) 40 mg DAILY@06 PO Last administered on 6/5/19at 06:03; Admin Dose 40 MG; Start 12/01/18 at 06:00 VTE Prophylaxis Risk score (from Nsg)>0 risk: 3 SCD applied (from Ns): No SCD contraindication: other Lines/Catheters IV Catheter Type: Cisse in Place: No Assessment/Plan Hospital Course Subjective Patient doing okay, complains of abdominal pain but it is not different from her chronic abdominal pain when she has ascites per patient Objective Physical exam General: Patient is laying in bed and answers questions appropriately Mentation: Patient is alert and oriented 4, Head: Normocephalic atraumatic Eyes: EOMI, pupils reactive to light Neck: Supple, nontender, midline Respiratory: Clear to auscultation bilaterally Cardiovascular: regular rate, no obvious murmurs Gastrointestinal: Mildly-tender to palpation, bowel sounds heard. Moderately distended Neurological: Moves all extremities spontaneously Skin: No new skin lesions Assessment/Plan 1. Ascites secondary to liver cirrhosis -10 L taken out with paracentesis - Diuretics on board, increase spironolactone as tolerated as this is the last diuretic that can be adjusted. - noted with early changes of cirrhosis seen on RUQ US and CT from prior admissions -Patient does not see a GI physician outpatient, only follows with family practitioner, attempt to get referral however that fell through for some reason. 2. Acute renal insufficiency- mild worsening - mild - most likely secondary to overload -Nephrology consulted as patient does have liver cirrhosis and can rapidly deteriorate. 3. Uncontrolled diabetes- improved - A1c noted - Continue insulin dosages and will adjust as needed for better glucose control - ISS and accuchecks 4. Compensated heart failure - continue current medications but holding LES inhibitor, will restart when renal function continues to improve 5. Afib - rate controlled - on Warfarin, goal is a 2-3 6. Mitral Valve replacement - on Warfarin -On record, patient has bioprosthetic valve, INR goal will still be 2-3 for A. fib, stop Lovenox bridge as patient is now therapeutic, continue current warfarin 7. Disposition -Continue to adjust diuretics and blood pressure medications, patient high risk for bounce back as she does not have reliable GI follow-up. KAREN VIERA Dec 01, 2018 14:22
[2018-12-01 15:05] VITALS: BP 110/70; PULSE 84; RESP 18
[2018-12-01] MEDS: WARFARIN 3 MG TAB PO SCH (17:36)
[2018-12-01] MEDS: ACETAMINOPHEN 325 MG TAB PO PRN (17:37)
[2018-12-01 20:20] VITALS: BP 103/51; PULSE 77; RESP 18
[2018-12-01] MEDS: ATORVASTATIN 10 MG TAB PO SCH (21:27)
--- NOTE | 2018-12-01 21:28 | CONS ---
DATE OF ADMISSION: 11/26/2018 DATE OF CONSULTATION: REASON FOR CONSULTATION: Acute kidney injury. REQUESTING PHYSICIAN: Dr. Garcia. HISTORY OF PRESENT ILLNESS: This is a 53-year-old female with a past medical history of chronic kidn ey disease stage III, history of CHF, AFib, who presents to [facility] with worseni ng ascites. The patient was recently hospitalized for symptomatic ascites. The patient underwent a paracentesis and was subsequently discharged. The patient upon arrival to the emergency room had lab oratory data drawn, which showed a potassium 5.4, BUN 51, creatinine 1.35. The patient was subsequen tly admitted to med/surg for evaluation. The patient underwent a large volume paracentesis with 10 l iters removed. In terms of patient's renal history, the patient has underlying CKD with previous baseline creatinine of 1.3 mg/dL. The patient's renal function has been at baseline during the hospital course. Most r ecent creatinine is 1.24 mg/dL. The patient herself denies any vomiting or hematemesis. Denies any rashes, any hematuria. PAST MEDICAL HISTORY: As stated above, history of chronic kidney disease, history of cirrhosis, hist ory of diabetes, history of CHF, pulmonary hypertension, history of AFib, hypothyroidism. PAST SURGICAL HISTORY: Status post mitral valve replacement, status post cholecystectomy, appendecto my. FAMILY HISTORY: No family history of kidney disease. SOCIAL HISTORY: Does not drink, smoke, or do drugs. MEDICATIONS: The patient's medications have been reviewed. REVIEW OF SYSTEMS: A 14-point review of systems was conducted. Pertinent positives stated in HPI, o therwise, negative. PHYSICAL EXAMINATION: VITAL SIGNS: Blood pressure is 110/70, respirations 18, pulse 84, temperature 98.1. HEENT: Head is normocephalic. NECK: Supple. HEART: Regular rate. LUNGS: Show diminished breath sounds at the base. ABDOMEN: Soft, nontender to palpation without guarding. EXTREMITIES: Negative for clubbing, cyanosis, no edema. DERMATOLOGIC: No rashes. MUSCULOSKELETAL: No joint effusion. NEUROLOGIC: No change in exam. The patient's medications have been reviewed. LABORATORY DATA: Reviewed. ASSESSMENT AND PLAN: This is a 5-year-old female who presents with: 1. Nonoliguric acute kidney injury on top of chronic kidney disease with a baseline creatinine aroun d 1.0 to 1.3 mg/dL. Etiology of acute kidney injury is secondary to hemodynamics. The patient's anton al function is fluctuating, but overall stable. At this point, would continue current treatment plan , supportive care, renally dose all meds, monitor closely on diuretic therapy, LES inhibitor. 2. Anemia. Monitor hemoglobin and hematocrit levels. 3. Hypomagnesemia. Continue to monitor and replete. 4. Mineral bone disorder, monitor calcium and phosphorus levels. 5. Decompensated cirrhosis. The patient is status post paracentesis with 10 liters removed. Curren tly, renal function stable, continue to monitor closely. 6. Diabetes. Continue current insulin regimen. 7. Heart failure. The patient is currently compensated on exam. Continue current medical managemen t. 8. Atrial fibrillation. Continue current treatment plan. 9. History of mitral valve replacement. Continue medical management. Thank you, Dr. Garcia, for this interesting consult. It will be a pleasure to follow patient with you t hroughout the hospital course. Dictated By: JANINA SOTO DO NR/NTS Conf#: [id number] DID#: [id number] CC: JULIO ARCHIBALD MD;*EndCC*
[2018-12-01] MEDS: INSULIN GLARGINE [LANTus] (100 UNITS/ML) SYG SC SCH (21:32)
[2018-12-02 02:15] VITALS: BP 105/54; PULSE 83; RESP 18
[2018-12-02] MEDS: ACCU-CHEK XX SCH (02:51)
[2018-12-02] MEDS: BUMETANIDE 1 MG TAB PO SCH ×2 (05:35→17:20)
[2018-12-02] MEDS: PANTOPRAZOLE (EC) 40 MG TAB PO SCH ×2 (05:35→17:20)
[2018-12-02 08:43] VITALS: BP 100/50; PULSE 83; RESP 18
[2018-12-02] MEDS: INSULIN ASPART [NOVOLOG] 3 ML PEN SC SCH ×4 (08:50→20:58)
[2018-12-02] MEDS: LORATADINE 10 MG TAB PO SCH (08:51)
[2018-12-02] MEDS: FERROUS SULFATE (EC) 325 MG TAB PO SCH (08:53)
[2018-12-02] MEDS: LISINOPRIL 5 MG TAB PO SCH (08:53)
[2018-12-02] MEDS: SPIRONOLACTONE 25 MG TAB PO SCH ×2 (08:54→21:03)
[2018-12-02] MEDS: SILDENAFIL 20 MG TAB PO SCH ×3 (08:54→21:05)
--- NOTE | 2018-12-02 09:08 | PN ---
DATE: 12/02/2018 SUBJECTIVE: The patient is stable. No events overnight. No fevers, chills, nausea or vomiting. OBJECTIVE: VITAL SIGNS: Blood pressure is 100/50, respirations 18, pulse 83, temperature 99.0. HEENT: Head is normocephalic. NECK: Supple. HEART: Regular rate. LUNGS: Show diminished breath sounds at the base. ABDOMEN: Soft, nontender to palpation. No rebound or guarding. EXTREMITIES: Negative for clubbing, cyanosis, no edema. DERMATOLOGIC: No rashes. MUSCULOSKELETAL: No joint effusion. NEUROLOGIC: No change in exam. MEDICATIONS: Reviewed. LABORATORY DATA: Reviewed. IMAGING STUDIES: Reviewed. ASSESSMENT AND PLAN: 1. Nonoliguric acute kidney injury on top of chronic kidney disease with baseline creatinine around 1.0 to 1.3 mg/dL. Etiology of acute kidney injury is secondary to hemodynamics. Renal function has been fluctuating. Overall stable. Continue current treatment plan and monitor renal function closel y on current diuretic regimen and LES inhibitor. 2. Anemia. Continue to monitor hemoglobin and hematocrit levels. 3. Hypomagnesemia. Continue to monitor and replete as needed. 4. Mineral bone disorder, monitor calcium and phosphorus levels. 5. Decompensated cirrhosis. The patient is status post paracentesis with 10 liters removed. Contin ue to monitor closely. Renal function is stable. 6. Diabetes. Continue current insulin regimen. 7. Heart failure. The patient appears compensated on exam. Continue to monitor. 8. Atrial fibrillation. Continue medical management. 9. History of mitral valve replacement. Dictated By: JANINA SOTO DO NR/NTS Conf#: [id number] DID#: [id number] CC: KAREN VIERA MD; JULIO ARCHIBALD MD;*EndCC*
[2018-12-02] MEDS ORDERED: IOHEXOL 14.3 MG(I)/ML (ADULT) BTL PO ONE (10:30)
[2018-12-02] MEDS: ACETAMINOPHEN 325 MG TAB PO PRN (11:30)
[2018-12-02] MEDS: DIGOXIN 0.125 MG TAB PO SCH (12:29)
[2018-12-02] MEDS ORDERED: morphine 2 MG INJ IV PRN (13:00)
[2018-12-02] MEDS ORDERED: traMADol 50 MG TAB PO PRN (13:00)
[2018-12-02] MEDS ORDERED: HYDROCODONE/APAP (5/325) TAB PO PRN (13:30)
--- NOTE | 2018-12-02 13:41 | CONS ---
Assessment/Plan Assessment/Plan Hospital Course (Demo Recall) Summary Assessment and Plan: Assessment: Acute on chronic epigastric pain -CT abd/pelvis without contrast 11/30- No evidence of urolithiasis, obstructive uropathy or diverticulitis. Nonvisualization appendix. Nodular contour liver compatible with cirrhosis. Varices with ascites - rule out portal hypertension. Patency of the portal vein is indeterminate on this noncontrast study. Cardiomegaly. Liver cirrhosis-with ascites -Status post paracentesis 11/28/2018- Approximately 10 liters of clear yellow fluid was obtained Renal insufficiency Pulmonary hypertension- pt on Sildenafil Heart failure Atrial fibrillation- on Coumadin History of bioprosthetic mitral valve Diabetes Hypertension Plan: NEAL, AMA, ASMA- ordered last admission not completed- will order again If recurrent or persistent ascites we would recommend TIPs procedure, however we do not do this at this facility. Continue diuretic therapy- with close observation of Cr/BUN Recommend EGD to further assess epigastric pain as well as rule out esophageal varices we will require cardiac clearance prior to procedure. Cardiac clearance Endoscopy - risks/benefits/alternatives/indications of procedure and sedation/anesthesia discussed with patient who states understanding and gives informed consent to proceed. Patient Seen in collaboration with Dr. Hirsch CC: ELIAS HIRSCH MD ; Consultation Date/Type/Reason Admit Date/Time November 26, 2018 at 22:46 Date of Consultation: Dec 02, 2018 Type of Consult GI Reason for Consultation Abdominal pain Requesting Provider: KAREN VIERA Date/Time of Note DATE: 12/02/18 TIME: 13:31 Hx of Present Illness This is a 53-year-old woman with past medical history of liver cirrhosis with ascites, diabetes mellitus type 2, congestive heart failure, pulmonary hypertension, atrial fibrillation on Coumadin, mitral valve replacement. Who presented to the hospital with complaints of abdominal distention and pain patient was admitted for further evaluation she is status post paracentesis with 10 L removed initially patient had a CT abdomen pelvis without contrast showing liver compatible with cirrhosis, varices with ascites, rule out portal hypertension, no evidence of urolithiasis, obstructive uropathy or diverticulitis. Despite paracentesis patient's abdominal pain has progressed GI has been consulted for further evaluation. Patient states she has had intermittent epigastric pain for the past 3 months. initially pain was worse with eating, however since hospitalization patient's epigastric pain had improved post paracentesis. This morning patient states that current pain has become progressively worse and denies increase in abdominal girth. Patient states upon standing pain improves and is worse with lying down or sitting. She denies overt signs of GI bleed and has never had an upper endoscopy. Review of Systems: A 12 system, review was conducted and is negative except as noted in the HPI or here. Past Medical History Home Meds Active Scripts Bumetanide* (Bumetanide*) 1 Mg Tablet, 1 MG PO BID DIURETICS, #60 TAB Prov:BURT,ANCA V. ROUGE MILLER 09/22/18 Sildenafil Citrate* (Revatio*) 20 Mg Tab, 20 MG PO TID, #90 TAB Prov:BURT,ANCA V. ROUGE MILLER 09/22/18 Lisinopril* (Lisinopril*) 5 Mg Tablet, 2.5 MG PO DAILY, #30 TAB 2 Refills Prov:ALFONZO BISHOP. 09/16/18 Insulin Glargine,Hum.rec.anlog (Basaglar Kwikpen U-100) 100 Unit/1 Ml Insuln.pen, 20 UNIT SC QHS, #6 VIAL 1 Refill Prov:ALFONZO BISHOP. 09/16/18 Insulin Lispro (Humalog) 100 Unit/1 Ml Cartridge, 7 UNIT SQ WITH MEALS, #7 VIAL 2 Refills Prov:ALFONZO BISHOP. 09/16/18 Reported Medications Triamcinolone Acetonide* (Kenalog*) 0.1%-15GM Oint, 1 APPLIC TOP BID, #1 EA 09/13/18 Spironolactone* (Aldactone*) 25 Mg Tablet, 25 MG PO DAILY, #30 TAB 09/13/18 Simvastatin* (Zocor*) 20 Mg Tablet, 20 MG PO QHS, #30 TAB 09/13/18 Loratadine* (Loratadine*) 10 Mg Tablet, 10 MG PO DAILY, #30 TAB 09/13/18 Sitagliptin* (Januvia*) 50 Mg Tablet, 50 MG PO DAILY, #30 TAB 09/13/18 Ferrous Sulfate* (Ferrous Sulfate*) 325 Mg Tabec, 325 MG PO DAILY, TAB 09/13/18 Digoxin* (Digitek*) 125 Mcg Tablet, 0.125 MG PO DAILY, TAB 09/13/18 Warfarin Sodium* (Coumadin*) 6 Mg Tablet, 6 MG PO DAILY, TAB 09/13/18 Carvedilol* (Carvedilol*) 6.25 Mg Tablet, 6.25 MG PO BID, #60 TAB 09/13/18 Medications Current Medications IV Flush (NS 3 ml) 3 ml PER PROTOCOL IV ; Start 11/27/18 at 00:30 Ondansetron HCl (Zofran Inj) 4 mg Q6H PRN IV NAUSEA/VOMITING; Start 11/27/18 at 00:30 Acetaminophen (Tylenol Tab) 650 mg Q6H PRN PO .PAIN 1-3 OR TEMP Last administered on 12/02/18 11:30; Admin Dose 650 MG; Start 11/27/18 at 00:30 Bumetanide (Bumex) 1 mg BID DIURETICS PO Last administered on 12/02/18 05:35; Admin Dose 1 MG; Start 11/27/18 at 06:00 Digoxin (Digoxin) 0.125 mg DAILY@1300 PO Last administered on 12/02/18 12:29; A dmin Dose 0.125 MG; Start 11/27/18 at 13:00 Ferrous Sulfate (Ferrous Sulfate (Ec)) 325 mg DAILY PO Last administered on 12/02/18 08:53; Admin Dose 325 MG; Start 11/27/18 at 09:00 Insulin Glargine (Lantus) 10 units QHS SC Last administered on 12/01/18 21:32; Admin Dose 10 UNITS; Start 11/27/18 at 21:00 Loratadine (Claritin) 10 mg DAILY PO Last administered on 12/02/18 08:51; Admin Dose 10 MG; Start 11/27/18 at 09:00 Warfarin Sodium (Coumadin) 6 mg DAILY@1700 PO Last administered on 12/01/18 17:36; Admin Dose 6 MG; Start 11/27/18 at 17:00 Atorvastatin Calcium (Lipitor) 10 mg DAILY@21 PO Last administered on 12/01/18 21:27; Admin Dose 10 MG; Start 11/27/18 at 21:00 Miscellaneous Information 1 ea NOTE XX ; Start 11/27/18 at 01:00 Glucose (Glutose) 15 gm Q15M PRN PO DECREASED GLUCOSE; Start 11/27/18 at 01:00 Glucose (Glutose) 22.5 gm Q15M PRN PO DECREASED GLUCOSE; Start 11/27/18 at 01:00 Dextrose (D50w Syringe) 25 ml Q15M PRN IV DECREASED GLUCOSE; Start 11/27/18 at 01:00 Dextrose (D50w Syringe) 50 ml Q15M PRN IV DECREASED GLUCOSE; Start 11/27/18 at 01:00 Glucagon (Glucagen) 1 mg Q15M PRN IM DECREASED GLUCOSE; Start 11/27/18 at 01:00 Glucose (Glutose) 15 gm Q15M PRN BUCCAL DECREASED GLUCOSE; Start 11/27/18 at 01:00 Miscellaneous Information Patients own medicat... BID@10,16 XX ; Start 11/27/18 at 10:00 Diagnostic Test (Pha) (Accu-Chek) 1 ea 02 XX Last administered on 12/02/18at 02:51; Admin Dose 1 EA; Start 11/28/18 at 02:00 Insulin Aspart (Novolog Insulin Pen) NOVOLOG *MODERATE* ALGORITHM WITH MEALS BEDTIME SC Last administered on 12/02/18at 11:51; Admin Dose 4 UNIT; Start 11/28/18 at 18:05 Spironolactone (Aldactone) 25 mg BID PO Last administered on 12/02/18at 08:54; Admin Dose 25 MG; Start 11/29/18 at 21:00 Carvedilol (Coreg) 3.125 mg BID PO Last administered on 12/01/18at 08:43; Admin Dose 3.125 MG; Start 11/30/18 at 21:00 Lisinopril (Zestril) 2.5 mg DAILY PO Last administered on 12/01/18at 08:43; Admin Dose 2.5 MG; Start 12/01/18 at 09:00 Pantoprazole (Protonix Tab) 40 mg DAILY@06 PO Last administered on 12/02/18at 05:35; Admin Dose 40 MG; Start 12/01/18 at 06:00 Sildenafil Citrate (Revatio) 10 mg TID PO ; Start 12/02/18 at 21:00 Tramadol HCl (Ultram) 50 mg Q6H PRN PO MODERATE PAIN LEVEL 4-6; Start 12/02/18 at 13:00; Status UNV Acetaminophen/ Hydrocodone Bitart ([place] (5/325)) 1 tab Q4H PRN PO MODERATE PAIN LEVEL 4-6; Start 12/02/18 at 13:30; Status UNV Allergies: Coded Allergies: morphine (Verified Allergy, Unknown, 09/13/18) Past Surgical History Past Surgical Hx: other Social History Alcohol Use: none Smoking Status: Never smoker Drug Use: none Exam/Review of Systems Exam Vitals Vital Signs Date Temp Pulse Resp B/P (MAP) Pulse Ox O2 O2 Flow FiO2 Time Delivery Rate 12/02/18 99.0 83 18 100/50 95 08:43 (67) 12/01/18 Room Air 15:05 Intake and Output 12/01/18 12/01/18 12/02/18 1414:59 22:59 06:59 IntakeIntake Total 890 ml 540 ml 1000 ml BalanceBalance 890 ml 540 ml 1000 ml Exam PHYSICAL EXAMINATION: GENERAL: Alert & oriented x 3, in no acute distress SKIN: No lesions HEAD: Normocephalic, atraumatic, no tenderness. EYES: Pupils equal reactive to light and accommodation, no discharge. EARS/NOSE AND THROAT: Ears normal, nose normal. NECK: Supple, no masses, thyroid normal. CHEST: Inspection within normal limits. CARDIOVASCULAR: Heart: Regular rate and rhythm RESPIRATORY: Lungs clear to auscultation GASTROINTESTINAL AND LIVER: Abdomen: Soft, epigastric tenderness, + distended, + ascites, no guarding, no rebound tenderness, normoactive bowel sounds. Rectal: Deferred. GENITOURINARY: Female genitalia within normal limits. EXTREMITIES: No cyanosis, clubbing or edema. Results Result Diagram: 12/02/18 0736 12/02/18 0736 Results 24hrs Laboratory Tests Test 12/01/18 17:33 12/01/18 19:30 12/01/18 21:26 12/02/18 01:58 Bedside Glucose 155 215 237 H Urine Color YELLOW Urine Clarity CLEAR Urine pH 5.0 Urine Specific [place] 1.012 Urine Ketones NEGATIVE Urine Nitrite NEGATIVE Urine Bilirubin NEGATIVE Urine Urobilinogen NEGATIVE Urine Leukocyte Esterase TRACE A Urine Microscopic RBC 2 Urine Microscopic WBC 3 Urine Squamous FEW Epithelial Cells Urine Hemoglobin 1+ H Urine Glucose NEGATIVE Urine Total Protein NEGATIVE Test 12/02/18 02:08 12/02/18 07:36 12/02/18 07:59 12/02/18 11:49 Urine Random Creatinine 35.36 Urine Random Sodium 100 H Urine Total Protein 15.0 H White Blood Count 5.0 Red Blood Count 3.88 L Hemoglobin 10.7 L Hematocrit 33.6 L Mean Corpuscular Volume 86.6 Mean Corpuscular 27.6 L Hemoglobin Mean Corpuscular 31.8 L Hemoglobin Concent Red Cell Distribution 17.0 H Width Platelet Count 212 Mean Platelet Volume 9.9 Immature Granulocytes % 0.400 Neutrophils % 65.7 Lymphocytes % 19.3 Monocytes % 10.4 Eosinophils % 3.2 Basophils % 1.0 Nucleated Red Blood 0.0 Cells % Immature Granulocytes # 0.020 Neutrophils # 3.3 Lymphocytes # 1.0 Monocytes # 0.5 Eosinophils # 0.2 Basophils # 0.1 Nucleated Red Blood 0.0 Cells # Prothrombin Time 27.9 H Prothrombin Time Ratio 2.2 INR International 2.60 Normalized Ratio Sodium Level 137 Potassium Level 4.1 Chloride Level 95 L Carbon Dioxide Level 31 Anion Gap 11 Blood Urea Nitrogen 50 H Creatinine 1.15 H Est Glomerular Filtrat 49 L Rate mL/min Glucose Level 165 Calcium Level 9.3 Phosphorus Level 4.9 Magnesium Level 1.9 Bedside Glucose 169 214 Medications Medication Current Medications IV Flush (NS 3 ml) 3 ml PER PROTOCOL IV ; Start 11/27/18 at 00:30 Ondansetron HCl (Zofran Inj) 4 mg Q6H PRN IV NAUSEA/VOMITING; Start 11/27/18 at 00:30 Acetaminophen (Tylenol Tab) 650 mg Q6H PRN PO .PAIN 1-3 OR TEMP Last admi nistered on 12/02/18at 11:30; Admin Dose 650 MG; Start 11/27/18 at 00:30 Bumetanide (Bumex) 1 mg BID DIURETICS PO Last administered on 12/02/18 05:35; Admin Dose 1 MG; Start 11/27/18 at 06:00 Digoxin (Digoxin) 0.125 mg DAILY@1300 PO Last administered on 12/02/18at 12:29; Admin Dose 0.125 MG; Start 11/27/18 at 13:00 Ferrous Sulfate (Ferrous Sulfate (Ec)) 325 mg DAILY PO Last administered on 12/02/18at 08:53; Admin Dose 325 MG; Start 11/27/18 at 09:00 Insulin Glargine (Lantus) 10 units QHS SC Last administered on 12/01/18 21:32; Admin Dose 10 UNITS; Start 11/27/18 at 21:00 Loratadine (Claritin) 10 mg DAILY PO Last administered on 12/02/18 08:51; Admin Dose 10 MG; Start 11/27/18 at 09:00 Warfarin Sodium (Coumadin) 6 mg DAILY@1700 PO Last administered on 12/01/18at 17:36; Admin Dose 6 MG; Start 11/27/18 at 17:00 Atorvastatin Calcium (Lipitor) 10 mg DAILY@21 PO Last administered on 12/01/18 21:27; Admin Dose 10 MG; Start 11/27/18 at 21:00 Miscellaneous Information 1 ea NOTE XX ; Start 11/27/18 at 01:00 Glucose (Glutose) 15 gm Q15M PRN PO DECREASED GLUCOSE; Start 11/27/18 at 01:00 Glucose (Glutose) 22.5 gm Q15M PRN PO DECREASED GLUCOSE; Start 11/27/18 at 01:00 Dextrose (D50w Syringe) 25 ml Q15M PRN IV DECREASED GLUCOSE; Start 11/27/18 at 01:00 Dextrose (D50w Syringe) 50 ml Q15M PRN IV DECREASED GLUCOSE; Start 11/27/18 at 01:00 Glucagon (Glucagen) 1 mg Q15M PRN IM DECREASED GLUCOSE; Start 11/27/18 at 01:00 Glucose (Glutose) 15 gm Q15M PRN BUCCAL DECREASED GLUCOSE; Start 11/27/18 at 01:00 Miscellaneous Information Patients own medicat... BID@10,16 XX ; Start 11/27/18 at 10:00 Diagnostic Test (Pha) (Accu-Chek) 1 ea 02 XX Last administered on 12/02/18at 02:51; Admin Dose 1 EA; Start 11/28/18 at 02:00 Insulin Aspart (Novolog Insulin Pen) NOVOLOG *MODERATE* ALGORITHM WITH MEALS BEDTIME SC Last administered on 12/02/18at 11:51; Admin Dose 4 UNIT; Start 11/28/18 at 18:05 Spironolactone (Aldactone) 25 mg BID PO Last administered on 12/02/18at 08:54; Admin Dose 25 MG; Start 11/29/18 at 21:00 Carvedilol (Coreg) 3.125 mg BID PO Last administered on 12/01/18at 08:43; Admin Dose 3.125 MG; Start 11/30/18 at 21:00 Lisinopril (Zestril) 2.5 mg DAILY PO Last administered on 12/01/18at 08:43; Admin Dose 2.5 MG; Start 12/01/18 at 09:00 Pantoprazole (Protonix Tab) 40 mg DAILY@06 PO Last administered on 12/02/18at 05:35; Admin Dose 40 MG; Start 12/01/18 at 06:00 Sildenafil Citrate (Revatio) 10 mg TID PO ; Start 12/02/18 at 21:00 Tramadol HCl (Ultram) 50 mg Q6H PRN PO MODERATE PAIN LEVEL 4-6; Start 12/02/18 at 13:00; Status UNV Acetaminophen/ Hydrocodone Bitart ([place] (5/325)) 1 tab Q4H PRN PO MODERATE PAIN LEVEL 4-6; Start 12/02/18 at 13:30; Status UNV MARCIN RODRIGUEZ Dec 02, 2018 13:40
[2018-12-02 15:05] VITALS: BP 98/52; PULSE 70; RESP 18
--- NOTE | 2018-12-02 16:04 | PN ---
Date/Time of Note Date/Time of Note DATE: 12/02/18 TIME: 16:02 Objective Vitals Vital Signs Date Temp Pulse Resp B/P (MAP) Pulse Ox O2 O2 Flow FiO2 Time Delivery Rate 12/02/18 98.2 70 18 98/52 (67) 94 15:05 12/01/18 Room Air 15:05 Intake and Output 12/01/18 12/01/18 12/02/18 1515:00 23:00 07:00 IntakeIntake Total 890 ml 540 ml 1000 ml BalanceBalance 890 ml 540 ml 1000 ml Results Result Diagram: 12/02/1836 12/02/18735 Medications Medications Current Medications IV Flush (NS 3 ml) 3 ml PER PROTOCOL IV ; Start 11/27/18 at 00:30 Ondansetron HCl (Zofran Inj) 4 mg Q6H PRN IV NAUSEA/VOMITING; Start 11/27/18 at 00:30 Acetaminophen (Tylenol Tab) 650 mg Q6H PRN PO .PAIN 1-3 OR TEMP Last administered on 12/02/18 11:30; Admin Dose 650 MG; Start 11/27/18 at 00:30 Bumetanide (Bumex) 1 mg BID DIURETICS PO Last administered on 12/02/18 05:35; Admin Dose 1 MG; Start 11/27/18 at 06:00 Digoxin (Digoxin) 0.125 mg DAILY@1300 PO Last administered on 12/02/18 12:29; Admin Dose 0.125 MG; Start 11/27/18 at 13:00 Ferrous Sulfate (Ferrous Sulfate (Ec)) 325 mg DAILY PO Last administered on 12/02/18 08:53; Admin Dose 325 MG; Start 11/27/18 at 09:00 Insulin Glargine (Lantus) 10 units QHS SC Last administered on 12/01/18 21:32; Admin Dose 10 UNITS; Start 11/27/18 at 21:00 Loratadine (Claritin) 10 mg DAILY PO Last administered on 12/02/18 08:51; Admin Dose 10 MG; Start 11/27/18 at 09:00 Warfarin Sodium (Coumadin) 6 mg DAILY@1700 PO Last administered on 12/01/18 17:36; Admin Dose 6 MG; Start 11/27/18 at 17:00 Atorvastatin Calcium (Lipitor) 10 mg DAILY@21 PO Last administered on 12/01/18at 21:27; Admin Dose 10 MG; Start 11/27/18 at 21:00 Miscellaneous Information 1 ea NOTE XX ; Start 11/27/18 at 01:00 Glucose (Glutose) 15 gm Q15M PRN PO DECREASED GLUCOSE; Start 11/27/18 at 01:00 Glucose (Glutose) 22.5 gm Q15M PRN PO DECREASED GLUCOSE; Start 11/27/18 at 01:00 Dextrose (D50w Syringe) 25 ml Q15M PRN IV DECREASED GLUCOSE; Start 11/27/18 at 01:00 Dextrose (D50w Syringe) 50 ml Q15M PRN IV DECREASED GLUCOSE; Start 11/27/18 at 01:00 Glucagon (Glucagen) 1 mg Q15M PRN IM DECREASED GLUCOSE; Start 11/27/18 at 01:00 Glucose (Glutose) 15 gm Q15M PRN BUCCAL DECREASED GLUCOSE; Start 11/27/18 at 01:00 Miscellaneous Information Patients own medicat... BID@10,16 XX ; Start 11/27/18 at 10:00 Diagnostic Test (Pha) (Accu-Chek) 1 ea 02 XX Last administered on 12/02/18at 02:51; Admin Dose 1 EA; Start 11/28/18 at 02:00 Insulin Aspart (Novolog Insulin Pen) NOVOLOG *MODERATE* ALGORITHM WITH MEALS BEDTIME SC Last administered on 12/02/18at 11:51; Admin Dose 4 UNIT; Start 11/28/18 at 18:05 Spironolactone (Aldactone) 25 mg BID PO Last administered on 12/02/18at 08:54; Admin Dose 25 MG; Start 11/29/18 at 21:00 Carvedilol (Coreg) 3.125 mg BID PO Last administered on 12/01/18at 08:43; Admin Dose 3.125 MG; Start 11/30/18 at 21:00 Lisinopril (Zestril) 2.5 mg DAILY PO Last administered on 12/01/18at 08:43; Admin Dose 2.5 MG; Start 12/01/18 at 09:00 Sildenafil Citrate (Revatio) 10 mg TID PO ; Start 12/02/18 at 21:00 Tramadol HCl (Ultram) 50 mg Q6H PRN PO MODERATE PAIN LEVEL 4-6; Start 12/02/18 at 13:00 Acetaminophen/ Hydrocodone Bitart ([place] (5/325)) 1 tab Q4H PRN PO MODERATE PAIN LEVEL 4-6; Start 12/02/18 at 13:30 Pantoprazole (Protonix Tab) 40 mg BID PO ; Start 12/02/18 at 21:00; Status UNV Sucralfate (Carafate Susp) 1 gm QID PO ; Start 12/02/18 at 17:00; Status UNV VTE Prophylaxis Risk score (from [facility] [place])>0 risk: 2 SCD applied (from [facility]): No SCD contraindication: other Lines/Catheters IV Catheter Type: Cisse in Place: No Assessment/Plan Hospital Course Subjective Patient stating her epigastric pain has increased Objective Physical exam General: Patient is laying in bed and answers questions appropriately Mentation: Patient is alert and oriented 4, Head: Normocephalic atraumatic Eyes: EOMI, pupils reactive to light Neck: Supple, nontender, midline Respiratory: Clear to auscultation bilaterally Cardiovascular: regular rate, no obvious murmurs Gastrointestinal: Mildly-tender to palpation, bowel sounds heard. Moderately distended Neurological: Moves all extremities spontaneously Skin: No new skin lesions Assessment/Plan 1. Ascites secondary to liver cirrhosis -10 L taken out with paracentesis - Diuretics on board, increase spironolactone as tolerated as this is the last diuretic that can be adjusted. - noted with early changes of cirrhosis seen on RUQ US and CT from prior admissions -Patient does not see a GI physician outpatient, only follows with family practitioner, attempt to get referral however that fell through for some reason. Epigastric abdominal pain -Worsened today, without swelling of her abdomen -GI consulted -Planning EGD however patient has multiple cardiac risk factors, will consult cardiology for cardiac clearance -PPI twice daily and Carafate for now -CT of the abdomen pelvis was done 2 days ago, no acute issues to explain abdominal pain 2. Acute renal insufficiency- mild improvement - mild - most likely secondary to overload -Nephrology consulted as patient does have liver cirrhosis and can rapidly deteriorate. 3. Uncontrolled diabetes- improved - A1c noted - Continue insulin dosages and will adjust as needed for better glucose control - ISS and accuchecks 4. Compensated heart failure - continue current medications but holding LES inhibitor, will restart when renal function continues to improve 5. Afib - rate controlled - on Warfarin, goal is a 2-3 6. Mitral Valve replacement - on Warfarin -On record, patient has bioprosthetic valve, INR goal will still be 2-3 for A. fib, stop Lovenox bridge as patient is now therapeutic, continue current warfarin 7. Disposition -Patient at high risk for bounce back, as she does not have proper specialist care, will plan for EGD when able per GI, cardiology consulted for cardiac clearance. KAREN VIERA Dec 02, 2018 16:04
--- NOTE | 2018-12-02 16:55 | CONS ---
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 She is improved with diuretics and paracentesis. -Patient undergoing GI work-up and plan for endoscopy. She currently appears compensated with no significant congestion on lung examination, patient without dyspnea and not requiring option supplementation. -ECG with no significant changes compared to August 2018. -Patient has multiple risk factors for sedation including congestive heart failure, pulmonary hypertension. As long as patient remains well compensated from a CHF standpoint, patient will be at intermediate to high risk for any untoward cardiac events for low risk endoscopy procedure. At the current time, patient appears optimized. Consultation Date/Type/Reason Admit Date/Time November 26, 2018 at 22:46 Type of Consult Cardiology Reason for Consultation Preoperative cardiac risk stratification Date/Time of Note DATE: 12/02/18 TIME: 16:46 Hx of Present Illness This is a 53-year-old female with known past past medical history of cardia myopathy, mitral valve disease status post replacement, who presents with worsening has not and abdominal distention. Patient says post diuretics and paracentesis and feels much better now. Patient also with evidence of liver cirrhosis and is undergoing GI work-up. Patient plan for endoscopy and cardiac preoperative cardiac risk stratification was requested Patient is doing much better. Her shortness of breath has improved significantly. She denies any chest pain. Abdominal distention is improved after paracentesis. She could ambulate currently but once her abdomen is distended, she has a hard time ambulating. Denies any exertional chest pain. 12 point review of systems was performed with all pertinent positives and negatives mentioned above and all else is negative Past Medical History Pulmonary hypertension Medical History: congestive heart failure, hypertension Home Meds Active Scripts Bumetanide* (Bumetanide*) 1 Mg Tablet, 1 MG PO BID DIURETICS, #60 TAB Prov:BURT,ANCA V. DEPARTMENT SECRETARY 09/22/18 Sildenafil Citrate* (Revatio*) 20 Mg Tab, 20 MG PO TID, #90 TAB Prov:BURT,ANCA V. DEPARTMENT SECRETARY 09/22/18 Lisinopril* (Lisinopril*) 5 Mg Tablet, 2.5 MG PO DAILY, #30 TAB 2 Refills Prov:ALFONZO BISHOP. 09/16/18 Insulin Glargine,Hum.rec.anlog (Basaglar Deniseikpen U-100) 100 Unit/1 Ml Insuln.pen, 20 UNIT SC QHS, #6 VIAL 1 Refill Prov:ALFONZO BISHOP. 09/16/18 Insulin Lispro (Humalog) 100 Unit/1 Ml Cartridge, 7 UNIT SQ WITH MEALS, #7 VIAL 2 Refills Prov:ALFONZO BISHOP. 09/16/18 Reported Medications Triamcinolone Acetonide* (Kenalog*) 0.1%-15GM Oint, 1 APPLIC TOP BID, #1 EA 09/13/18 Spironolactone* (Aldactone*) 25 Mg Tablet, 25 MG PO DAILY, #30 TAB 09/13/18 Simvastatin* (Zocor*) 20 Mg Tablet, 20 MG PO QHS, #30 TAB 09/13/18 Loratadine* (Loratadine*) 10 Mg Tablet, 10 MG PO DAILY, #30 TAB 09/13/18 Sitagliptin* (Januvia*) 50 Mg Tablet, 50 MG PO DAILY, #30 TAB 09/13/18 Ferrous Sulfate* (Ferrous Sulfate*) 325 Mg Tabec, 325 MG PO DAILY, TAB 09/13/18 Digoxin* (Digitek*) 125 Mcg Tablet, 0.125 MG PO DAILY, TAB 09/13/18 Warfarin Sodium* (Coumadin*) 6 Mg Tablet, 6 MG PO DAILY, TAB 09/13/18 Carvedilol* (Carvedilol*) 6.25 Mg Tablet, 6.25 MG PO BID, #60 TAB 09/13/18 Medications Current Medications IV Flush (NS 3 ml) 3 ml PER PROTOCOL IV ; Start 11/27/18 at 00:30 Ondansetron HCl (Zofran Inj) 4 mg Q6H PRN IV NAUSEA/VOMITING; Start 11/27/18 at 00:30 Acetaminophen (Tylenol Tab) 650 mg Q6H PRN PO .PAIN 1-3 OR TEMP Last administered on 12/02/18at 11:30; Admin Dose 650 MG; Start 11/27/18 at 00:30 Bumetanide (Bumex) 1 mg BID DIURETICS PO Last administered on 12/02/18 05:35; Admin Dose 1 MG; Start 11/27/18 at 06:00 Digoxin (Digoxin) 0.125 mg DAILY@1300 PO Last administered on 12/02/18at 12:29; Admin Dose 0.125 MG; Start 11/27/18 at 13:00 Ferrous Sulfate (Ferrous Sulfate (Ec)) 325 mg DAILY PO Last administered on 12/02/18 08:53; Admin Dose 325 MG; Start 11/27/18 at 09:00 Insulin Glargine (Lantus) 10 units QHS SC Last administered on 12/01/18 21:32; Admin Dose 10 UNITS; Start 11/27/18 at 21:00 Loratadine (Claritin) 10 mg DAILY PO Last administered on 12/02/18 08:51; Admin Dose 10 MG; Start 11/27/18 at 09:00 Warfarin Sodium (Coumadin) 6 mg DAILY@1700 PO Last administered on 12/01/18at 17:36; Admin Dose 6 MG; Start 11/27/18 at 17:00 Atorvastatin Calcium (Lipitor) 10 mg DAILY@21 PO Last administered on 12/01/18at 21:27; Admin Dose 10 MG; Start 11/27/18 at 21:00 Miscellaneous Information 1 ea NOTE XX ; Start 11/27/18 at 01:00 Glucose (Glutose) 15 gm Q15M PRN PO DECREASED GLUCOSE; Start 11/27/18 at 01:00 Glucose (Glutose) 22.5 gm Q15M PRN PO DECREASED GLUCOSE; Start 11/27/18 at 01:00 Dextrose (D50w Syringe) 25 ml Q15M PRN IV DECREASED GLUCOSE; Start 11/27/18 at 01:00 Dextrose (D50w Syringe) 50 ml Q15M PRN IV DECREASED GLUCOSE; Start 11/27/18 at 01:00 Glucagon (Glucagen) 1 mg Q15M PRN IM DECREASED GLUCOSE; Start 11/27/18 at 01:00 Glucose (Glutose) 15 gm Q15M PRN BUCCAL DECREASED GLUCOSE; Start 11/27/18 at 01:00 Miscellaneous Information Patients own medicat... BID@10,16 XX ; Start 11/27/18 at 10:00 Diagnostic Test (Pha) (Accu-Chek) 1 ea 02 XX Last administered on 12/02/18at 02:51; Admin Dose 1 EA; Start 11/28/18 at 02:00 Insulin Aspart (Novolog Insulin Pen) NOVOLOG *MODERATE* ALGORITHM WITH MEALS BEDTIME SC Last administered on 12/02/18at 11:51; Admin Dose 4 UNIT; Start 11/28/18 at 18:05 Spironolactone (Aldactone) 25 mg BID PO Last administered on 12/02/18at 08:54; Admin Dose 25 MG; Start 11/29/18 at 21:00 Carvedilol (Coreg) 3.125 mg BID PO Last administered on 12/01/18at 08:43; Admin Dose 3.125 MG; Start 11/30/18 at 21:00 Lisinopril (Zestril) 2.5 mg DAILY PO Last administered on 12/01/18at 08:43; Admin Dose 2.5 MG; Start 12/01/18 at 09:00 Sildenafil Citrate (Revatio) 10 mg TID PO ; Start 12/02/18 at 21:00 Tramadol HCl (Ultram) 50 mg Q6H PRN PO MODERATE PAIN LEVEL 4-6; Start 12/02/18 at 13:00 Acetaminophen/ Hydrocodone Bitart ([place] (5/325)) 1 tab Q4H PRN PO MODERATE PAIN LEVEL 4-6; Start 12/02/18 at 13:30 Pantoprazole (Protonix Tab) 40 mg BID@0600,1800 PO ; Start 12/02/18 at 18:00 Sucralfate (Carafate Susp) 1 gm QID PO ; Start 12/02/18 at 17:00 Allergies: Coded Allergies: morphine (Verified Allergy, Unknown, SOB, 12/02/18) Past Surgical History Past Surgical Hx: other Family History Significant Family History: no pertinent family hx Social History Alcohol Use: none Smoking Status: Never smoker Drug Use: none Exam/Review of Systems Vital Signs Vitals Vital Signs Date Temp Pulse Resp B/P (MAP) Pulse Ox O2 O2 Flow FiO2 Time Delivery Rate 12/02/18 98.2 70 18 98/52 (67) 94 15:05 12/01/18 Room Air 15:05 Intake and Output 12/01/18 12/01/18 12/02/18 1515:00 23:00 07:00 IntakeIntake Total 890 ml 540 ml 1000 ml BalanceBalance 890 ml 540 ml 1000 ml Exam Constitutional: alert, oriented (No apparent distress, no dyspnea with speaking) Head: normocephalic Respiratory: other (Coarse breath sounds bilaterally, no wheezing) Cardiovascular: regular rate and rhythm (Occasional irregularities), systolic murmur Gastrointestinal: soft, ascites, bowel sounds, distended Extremities: edema Labs Result Diagram: 12/02/18 0736 12/02/18 0736 Results 24hrs Laboratory Tests Test 12/01/18 17:33 12/01/18 19:30 12/01/18 21:26 12/02/18 01:58 Bedside Glucose 155 215 237 H Urine Color YELLOW Urine Clarity CLEAR Urine pH 5.0 Urine Specific [place] 1.012 Urine Ketones NEGATIVE Urine Nitrite NEGATIVE Urine Bilirubin NEGATIVE Urine Urobilinogen NEGATIVE Urine Leukocyte Esterase TRACE A Urine Microscopic RBC 2 Urine Microscopic WBC 3 Urine Squamous FEW Epithelial Cells Urine Hemoglobin 1+ H Urine Glucose NEGATIVE Urine Total Protein NEGATIVE Test 12/02/18 02:08 12/02/18 07:36 12/02/18 07:59 12/02/18 11:49 Urine Random Creatinine 35.36 Urine Random Sodium 100 H Urine Total Protein 15.0 H White Blood Count 5.0 Red Blood Count 3.88 L Hemoglobin 10.7 L Hematocrit 33.6 L Mean Corpuscular Volume 86.6 Mean Corpuscular 27.6 L Hemoglobin Mean Corpuscular 31.8 L Hemoglobin Concent Red Cell Distribution 17.0 H Width Platelet Count 212 Mean Platelet Volume 9.9 Immature Granulocytes % 0.400 Neutrophils % 65.7 Lymphocytes % 19.3 Monocytes % 10.4 Eosinophils % 3.2 Basophils % 1.0 Nucleated Red Blood 0.0 Cells % Immature Granulocytes # 0.020 Neutrophils # 3.3 Lymphocytes # 1.0 Monocytes # 0.5 Eosinophils # 0.2 Basophils # 0.1 Nucleated Red Blood 0.0 Cells # Prothrombin Time 27.9 H Prothrombin Time Ratio 2.2 INR International 2.60 Normalized Ratio Sodium Level 137 Potassium Level 4.1 Chloride Level 95 L Carbon Dioxide Level 31 Anion Gap 11 Blood Urea Nitrogen 50 H Creatinine 1.15 H Est Glomerular Filtrat 49 L Rate mL/min Glucose Level 165 Calcium Level 9.3 Phosphorus Level 4.9 Magnesium Level 1.9 Bedside Glucose 169 214 Imaging Imaging ECG with regular rate 84 bpm, QRS 173 milliseconds, nonspecific ST abnormalities Medications Medications Current Medications IV Flush (NS 3 ml) 3 ml PER PROTOCOL IV ; Start 11/27/18 at 00:30 Ondansetron HCl (Zofran Inj) 4 mg Q6H PRN IV NAUSEA/VOMITING; Start 11/27/18 at 00:30 Acetaminophen (Tylenol Tab) 650 mg Q6H PRN PO .PAIN 1-3 OR TEMP Last administered on 12/02/18 11:30; Admin Dose 650 MG; Start 11/27/18 at 00:30 Bumetanide (Bumex) 1 mg BID DIURETICS PO Last administered on 12/02/18 05:35; Admin Dose 1 MG; Start 11/27/18 at 06:00 Digoxin (Digoxin) 0.125 mg DAILY@1300 PO Last administered on 12/02/18 12:29; Admin Dose 0.125 MG; Start 11/27/18 at 13:00 Ferrous Sulfate (Ferrous Sulfate (Ec)) 325 mg DAILY PO Last administered on 12/02/18 08:53; Admin Dose 325 MG; Start 11/27/18 at 09:00 Insulin Glargine (Lantus) 10 units QHS SC Last administered on 12/01/18 21:32; Admin Dose 10 UNITS; Start 11/27/18 at 21:00 Loratadine (Claritin) 10 mg DAILY PO Last administered on 12/02/18 08:51; Admin Dose 10 MG; Start 11/27/18 at 09:00 Warfarin Sodium (Coumadin) 6 mg DAILY@1700 PO Last administered on 12/01/18at 1 7:36; Admin Dose 6 MG; Start 11/27/18 at 17:00 Atorvastatin Calcium (Lipitor) 10 mg DAILY@21 PO Last administered on 12/01/18 21:27; Admin Dose 10 MG; Start 11/27/18 at 21:00 Miscellaneous Information 1 ea NOTE XX ; Start 11/27/18 at 01:00 Glucose (Glutose) 15 gm Q15M PRN PO DECREASED GLUCOSE; Start 11/27/18 at 01:00 Glucose (Glutose) 22.5 gm Q15M PRN PO DECREASED GLUCOSE; Start 11/27/18 at 01:00 Dextrose (D50w Syringe) 25 ml Q15M PRN IV DECREASED GLUCOSE; Start 11/27/18 at 01:00 Dextrose (D50w Syringe) 50 ml Q15M PRN IV DECREASED GLUCOSE; Start 11/27/18 at 01:00 Glucagon (Glucagen) 1 mg Q15M PRN IM DECREASED GLUCOSE; Start 11/27/18 at 01:00 Glucose (Glutose) 15 gm Q15M PRN BUCCAL DECREASED GLUCOSE; Start 11/27/18 at 01:00 Miscellaneous Information Patients own medicat... BID@10,16 XX ; Start 11/27/18 at 10:00 Diagnostic Test (Pha) (Accu-Chek) 1 ea 02 XX Last administered on 12/02/18at 02:51; Admin Dose 1 EA; Start 11/28/18 at 02:00 Insulin Aspart (Novolog Insulin Pen) NOVOLOG *MODERATE* ALGORITHM WITH MEALS BEDTIME SC Last administered on 12/02/18at 11:51; Admin Dose 4 UNIT; Start 9 at 18:05 Spironolactone (Aldactone) 25 mg BID PO Last administered on 12/02/18at 08:54; Admin Dose 25 MG; Start 11/29/18 at 21:00 Carvedilol (Coreg) 3.125 mg BID PO Last administered on 12/01/18at 08:43; Admin Dose 3.125 MG; Start 11/30/18 at 21:00 Lisinopril (Zestril) 2.5 mg DAILY PO Last administered on 12/01/18at 08:43; Admin Dose 2.5 MG; Start 12/01/18 at 09:00 Sildenafil Citrate (Revatio) 10 mg TID PO ; Start 12/02/18 at 21:00 Tramadol HCl (Ultram) 50 mg Q6H PRN PO MODERATE PAIN LEVEL 4-6; Start 12/02/18 at 13:00 Acetaminophen/ Hydrocodone Bitart ([place] (5/325)) 1 tab Q4H PRN PO MODERATE PAIN LEVEL 4-6; Start 12/02/18 at 13:30 Pantoprazole (Protonix Tab) 40 mg BID@0600,1800 PO ; Start 12/02/18 at 18:00 Sucralfate (Carafate Susp) 1 gm QID PO ; Start 12/02/18 at 17:00 Rodger Choi DO Dec 02, 2018 16:55
[2018-12-02] MEDS: SUCRALFATE (100 MG/ML) 10ML CUP PO SCH ×2 (17:20→21:01)
[2018-12-02] MEDS: WARFARIN 3 MG TAB PO SCH (17:22)
[2018-12-02] MEDS: INSULIN GLARGINE [LANTus] (100 UNITS/ML) SYG SC SCH (21:00)
[2018-12-02] MEDS: ATORVASTATIN 10 MG TAB PO SCH (21:01)
[2018-12-02 21:07] VITALS: BP 112/63; PULSE 70; RESP 18
[2018-12-02 21:08] VITALS: BP 106/47; PULSE 82
[2018-12-03 02:00] VITALS: BP 105/52; PULSE 81; RESP 18
[2018-12-03] MEDS: ACCU-CHEK XX SCH (02:00)
[2018-12-03] MEDS: PANTOPRAZOLE (EC) 40 MG TAB PO SCH ×2 (05:27→17:39)
[2018-12-03] MEDS: BUMETANIDE 1 MG TAB PO SCH ×2 (05:27→17:40)
[2018-12-03] MEDS: INSULIN ASPART [NOVOLOG] 3 ML PEN SC SCH ×4 (08:03→20:54)
[2018-12-03] MEDS: SUCRALFATE (100 MG/ML) 10ML CUP PO SCH ×4 (08:45→20:50)
[2018-12-03] MEDS: LORATADINE 10 MG TAB PO SCH (08:46)
[2018-12-03] MEDS: SPIRONOLACTONE 25 MG TAB PO SCH ×2 (08:46→20:42)
[2018-12-03] MEDS: FERROUS SULFATE (EC) 325 MG TAB PO SCH (08:46)
[2018-12-03 08:47] VITALS: BP 111/57; PULSE 87; RESP 18
[2018-12-03] MEDS: LISINOPRIL 5 MG TAB PO SCH (09:00)
[2018-12-03] MEDS: SILDENAFIL 20 MG TAB PO SCH ×3 (09:00→20:43)
--- NOTE | 2018-12-03 11:27 | PN ---
DATE: 12/03/2018 SUBJECTIVE: The patient is stable, no events overnight. OBJECTIVE: VITAL SIGNS: Blood pressure is 105/52, respiration 19, pulse 81, temperature 98.2. HEENT: Head is normocephalic. NECK: Supple. HEART: Regular rate. LUNGS: Show diminished breath sounds at base. ABDOMEN: Soft, nontender to palpation. No rebound or guarding. The patient's abdomen is distended, positive fluid wave noted. EXTREMITIES: Negative for clubbing, cyanosis, no edema. DERMATOLOGIC: No rashes. MUSCULOSKELETAL: No joint effusion. NEUROLOGIC: No change in exam. ASSESSMENT AND PLAN: 1. Nonoliguric acute kidney injury on top of chronic kidney disease with previous baseline creatinin e around 1.0 to 1.3 mg/dL. Etiology of acute kidney injury is secondary to hemodynamics. The patien t's renal function has been fluctuating but overall stable. Continue current treatment plan. Contin ue current diuretic regimen. Continue LES inhibitor. 2. Anemia. Continue to monitor hemoglobin and hematocrit levels. 3. Hypomagnesemia. Continue to monitor and replete as needed. 4. Mineral bone disorder, monitor calcium and phosphorus levels. 5. Decompensated cirrhosis. The patient is status post paracentesis. Continue current medical melody gement. Follow up with GI. 6. Diabetes. Continue current insulin regimen. 7. Acute on chronic heart failure. The patient appears compensated on exam. Continue current diure tic regimen. 8. Afib. Continue medical management. 9. History of valvular replacement. 10. Abdominal pain. The patient is seen by GI, pending possible EGD. Dictated By: JANINA PINEDA/SULTANA Conf#: [id number] DID#: [id number] CC: JULIO ARCHIBALD MD;*EndCC*
--- NOTE | 2018-12-03 12:03 | CONS ---
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 She is improved with diuretics and paracentesis. -Patient undergoing GI work-up and plan for endoscopy. She currently appears compensated with no significant congestion on lung examination, patient without dyspnea and not requiring oxygen supplementation. -ECG with no significant changes compared to August 2018. -Patient has multiple risk factors for sedation including congestive heart failure, pulmonary hypertension. As long as patient remains well compensated from a CHF standpoint, patient will be at intermediate to high risk for any untoward cardiac events for low risk endoscopy procedure. At the current time, patient appears optimized. Consultation Date/Type/Reason Admit Date/Time November 26, 2018 at 22:46 Initial Consult Date 12/02/18 Type of Consult Cardiology Requesting Provider: KAREN VIERA Date/Time of Note DATE: 12/03/18 TIME: 12:01 24 HR Interval Summary Free Text/Dictation no sob,cp,palp Exam/Review of Systems Vital Signs Vitals Vital Signs Date Temp Pulse Resp B/P (MAP) Pulse Ox O2 O2 Flow FiO2 Time Delivery Rate 12/03/18 97.8 87 18 111/57 94 08:47 (75) 12/01/18 Room Air 15:05 Intake and Output 12/02/18 12/02/18 12/03/18 1515:00 23:00 07:00 IntakeIntake Total 480 ml 240 ml BalanceBalance 480 ml 240 ml Exam Constitutional: alert, oriented (nad) Respiratory: other (course bs, no wheeze) Cardiovascular: regular rate and rhythm, systolic murmur (s1s2) Gastrointestinal: soft, non-tender, ascites, bowel sounds, distended Extremities: edema Labs Result Diagram: 12/02/18 0736 12/03/18 0559 Results 24hrs Laboratory Tests Test 12/02/18 17:17 12/02/18 20:58 12/03/18 05:59 12/03/18 08:00 Bedside Glucose 170 176 161 Prothrombin Time 30.8 H Prothrombin Time Ratio 2.4 INR International 2.95 Normalized Ratio Sodium Level 138 Potassium Level 4.4 Chloride Level 95 L Carbon Dioxide Level 34 H Anion Gap 9 Blood Urea Nitrogen 53 H Creatinine 1.28 H Est Glomerular Filtrat 44 L Rate mL/min Glucose Level 153 Calcium Level 9.4 Phosphorus Level 4.3 Magnesium Level 1.9 Medications Medications Current Medications IV Flush (NS 3 ml) 3 ml PER PROTOCOL IV ; Start 11/27/18 at 00:30 Ondansetron HCl (Zofran Inj) 4 mg Q6H PRN IV NAUSEA/VOMITING; Start 11/27/18 at 00:30 Acetaminophen (Tylenol Tab) 650 mg Q6H PRN PO .PAIN 1-3 OR TEMP Last administered on 12/02/18 11:30; Admin Dose 650 MG; Start 11/27/18 at 00:30 Bumetanide (Bumex) 1 mg BID DIURETICS PO Last administered on 12/03/18 05:27; Admin Dose 1 MG; Start 11/27/18 at 06:00 Digoxin (Digoxin) 0.125 mg DAILY@1300 PO Last administered on 12/02/18 12:29; Admin Dose 0.125 MG; Start 11/27/18 at 13:00 Ferrous Sulfate (Ferrous Sulfate (Ec)) 325 mg DAILY PO Last administered on 12/03/18 08:46; Admin Dose 325 MG; Start 11/27/18 at 09:00 Insulin Glargine (Lantus) 10 units QHS SC Last administered on 12/02/18 21:00; Admin Dose 10 UNITS; Start 11/27/18 at 21:00 Loratadine (Claritin) 10 mg DAILY PO Last administered on 12/03/18 08:46; Admin Dose 10 MG; Start 11/27/18 at 09:00 Warfarin Sodium (Coumadin) 6 mg DAILY@1700 PO Last administered on 12/02/18 17:22; Admin Dose 6 MG; Start 11/27/18 at 17:00 Atorvastatin Calcium (Lipitor) 10 mg DAILY@21 PO Last administered on 12/02/18 21:01; Admin Dose 10 MG; Start 11/27/18 at 21:00 Miscellaneous Information 1 ea NOTE XX ; Start 11/27/18 at 01:00 Glucose (Glutose) 15 gm Q15M PRN PO DECREASED GLUCOSE; Start 11/27/18 at 01:00 Glucose (Glutose) 22.5 gm Q15M PRN PO DECREASED GLUCOSE; Start 11/27/18 at 01:00 Dextrose (D50w Syringe) 25 ml Q15M PRN IV DECREASED GLUCOSE; Start 11/27/18 at 01:00 Dextrose (D50w Syringe) 50 ml Q15M PRN IV DECREASED GLUCOSE; Start 11/27/18 at 01:00 Glucagon (Glucagen) 1 mg Q15M PRN IM DECREASED GLUCOSE; Start 11/27/18 at 01:00 Glucose (Glutose) 15 gm Q15M PRN BUCCAL DECREASED GLUCOSE; Start 11/27/18 at 01:00 Miscellaneous Information Patients own medicat... BID@10,16 XX ; Start 11/27/18 at 10:00 Diagnostic Test (Pha) (Accu-Chek) 1 ea 02 XX Last administered on 12/02/18at 02:51; Admin Dose 1 EA; Start 11/28/18 at 02:00 Insulin Aspart (Novolog Insulin Pen) NOVOLOG *MODERATE* ALGORITHM WITH MEALS BEDTIME SC Last administered on 12/03/18at 08:03; Admin Dose 2 UNIT; Start 11/28/18 at 18:05 Spironolactone (Aldactone) 25 mg BID PO Last administered on 12/03/18at 08:46; Admin Dose 25 MG; Start 11/29/18 at 21:00 Carvedilol (Coreg) 3.125 mg BID PO Last administered on 12/01/18at 08:43; Admin Dose 3.125 MG; Start 11/30/18 at 21:00 Lisinopril (Zestril) 2.5 mg DAILY PO Last administered on 12/01/18at 08:43; Admin Dose 2.5 MG; Start 12/01/18 at 09:00 Sildenafil Citrate (Revatio) 10 mg TID PO Last administered on 12/02/18at 21:05; Admin Dose 10 MG; Start 12/02/18 at 21:00 Tramadol HCl (Ultram) 50 mg Q6H PRN PO MODERATE PAIN LEVEL 4-6; Start 12/02/18 at 13:00 Acetaminophen/ Hydrocodone Bitart ([place] (5/325)) 1 tab Q4H PRN PO MODERATE PAIN LEVEL 4-6; Start 12/02/18 at 13:30 Pantoprazole (Protonix Tab) 40 mg BID@0600,1800 PO Last administered on 12/03/18at 05:27; Admin Dose 40 MG; Start 12/02/18 at 18:00 Sucralfate (Carafate Susp) 1 gm QID PO Last administered on 12/03/18at 08:45; Admin Dose 1 GM; Start 12/02/18 at 17:00 Rodger Choi DO Dec 03, 2018 12:03
[2018-12-03] MEDS: DIGOXIN 0.125 MG TAB PO SCH (13:11)
[2018-12-03 13:12] VITALS: BP 118/57; PULSE 79
--- NOTE | 2018-12-03 14:24 | PN ---
Date/Time of Note Date/Time of Note DATE: 12/03/18 TIME: 14:23 Objective Vitals Vital Signs Date Temp Pulse Resp B/P (MAP) Pulse Ox O2 O2 Flow FiO2 Time Delivery Rate 12/03/18 79 118/57 13:12 (77) 12/03/18 97.8 18 94 08:47 12/01/18 Room Air 15:05 Intake and Output 12/02/18 12/02/18 12/03/18 1515:00 23:00 07:00 IntakeIntake Total 480 ml 240 ml BalanceBalance 480 ml 240 ml Results Result Diagram: 12/02/18 0736 12/03/18 0559 Medications Medications Current Medications IV Flush (NS 3 ml) 3 ml PER PROTOCOL IV ; Start 11/27/18 at 00:30 Ondansetron HCl (Zofran Inj) 4 mg Q6H PRN IV NAUSEA/VOMITING; Start 11/27/18 at 00:30 Acetaminophen (Tylenol Tab) 650 mg Q6H PRN PO .PAIN 1-3 OR TEMP Last adm inistered on 12/02/18 11:30; Admin Dose 650 MG; Start 11/27/18 at 00:30 Bumetanide (Bumex) 1 mg BID DIURETICS PO Last administered on 12/03/18 05:27; Admin Dose 1 MG; Start 11/27/18 at 06:00 Digoxin (Digoxin) 0.125 mg DAILY@1300 PO Last administered on 12/03/18 13:11; Admin Dose 0.125 MG; Start 11/27/18 at 13:00 Ferrous Sulfate (Ferrous Sulfate (Ec)) 325 mg DAILY PO Last administered on 12/03/18 08:46; Admin Dose 325 MG; Start 11/27/18 at 09:00 Insulin Glargine (Lantus) 10 units QHS SC Last administered on 12/02/18 21:00; Admin Dose 10 UNITS; Start 11/27/18 at 21:00 Loratadine (Claritin) 10 mg DAILY PO Last administered on 12/03/18 08:46; Admin Dose 10 MG; Start 11/27/18 at 09:00 Warfarin Sodium (Coumadin) 6 mg DAILY@1700 PO Last administered on 12/02/18 17:22; Admin Dose 6 MG; Start 11/27/18 at 17:00 Atorvastatin Calcium (Lipitor) 10 mg DAILY@21 PO Last administered on 12/02/18at 21:01; Admin Dose 10 MG; Start 11/27/18 at 21:00 Miscellaneous Information 1 ea NOTE XX ; Start 11/27/18 at 01:00 Glucose (Glutose) 15 gm Q15M PRN PO DECREASED GLUCOSE; Start 11/27/18 at 01:00 Glucose (Glutose) 22.5 gm Q15M PRN PO DECREASED GLUCOSE; Start 11/27/18 at 01:00 Dextrose (D50w Syringe) 25 ml Q15M PRN IV DECREASED GLUCOSE; Start 11/27/18 at 01:00 Dextrose (D50w Syringe) 50 ml Q15M PRN IV DECREASED GLUCOSE; Start 11/27/18 at 01:00 Glucagon (Glucagen) 1 mg Q15M PRN IM DECREASED GLUCOSE; Start 11/27/18 at 01:00 Glucose (Glutose) 15 gm Q15M PRN BUCCAL DECREASED GLUCOSE; Start 11/27/18 at 01:00 Miscellaneous Information Patients own medicat... BID@10,16 XX ; Start 11/27/18 at 10:00 Diagnostic Test (Pha) (Accu-Chek) 1 ea 02 XX Last administered on 12/02/18at 02:51; Admin Dose 1 EA; Start 11/28/18 at 02:00 Insulin Aspart (Novolog Insulin Pen) NOVOLOG *MODERATE* ALGORITHM WITH MEALS BEDTIME SC Last administered on 12/03/18at 12:03; Admin Dose 4 UNIT; Start 11/28/18 at 18:05 Spironolactone (Aldactone) 25 mg BID PO Last administered on 12/03/18at 08:46; Admin Dose 25 MG; Start 11/29/18 at 21:00 Carvedilol (Coreg) 3.125 mg BID PO Last administered on 12/01/18 08:43; Admin Dose 3.125 MG; Start 11/30/18 at 21:00 Lisinopril (Zestril) 2.5 mg DAILY PO Last administered on 12/01/18 08:43; Admin Dose 2.5 MG; Start 12/01/18 at 09:00 Sildenafil Citrate (Revatio) 10 mg TID PO Last administered on 12/03/18 13:11; Admin Dose 10 MG; Start 12/02/18 at 21:00 Tramadol HCl (Ultram) 50 mg Q6H PRN PO MODERATE PAIN LEVEL 4-6; Start 12/02/18 at 13:00 Acetaminophen/ Hydrocodone Bitart ([place] (5/325)) 1 tab Q4H PRN PO MODERATE PAIN LEVEL 4-6; Start 12/02/18 at 13:30 Pantoprazole (Protonix Tab) 40 mg BID@0600,1800 PO Last administered on 12/03/18at 05:27; Admin Dose 40 MG; Start 12/02/18 at 18:00 Sucralfate (Carafate Susp) 1 gm QID PO Last administered on 12/03/18at 13:10; Admin Dose 1 GM; Start 12/02/18 at 17:00 VTE Prophylaxis Risk score [place] [facility] [place] risk: 3 SCD applied [place] [facility] [place] No SCD contraindication: other Lines/Catheters IV Catheter Type: Cisse in Place: No Assessment/Plan Hospital Course Subjective Patient stating her epigastric pain has subsided moderately Objective Physical exam General: Patient is laying in bed and answers questions appropriately Mentation: Patient is alert and oriented 4, Head: Normocephalic atraumatic Eyes: EOMI, pupils reactive to light Neck: Supple, nontender, midline Respiratory: Clear to auscultation bilaterally Cardiovascular: regular rate, no obvious murmurs Gastrointestinal: Mildly-tender to palpation, bowel sounds heard. Moderately distended Neurological: Moves all extremities spontaneously Skin: No new skin lesions Assessment/Plan 1. Ascites secondary to liver cirrhosis -10 L taken out with paracentesis - Diuretics on board, increase spironolactone as tolerated as this is the last diuretic that can be adjusted. - noted with early changes of cirrhosis seen on RUQ US and CT from prior admissions -Patient does not see a GI physician outpatient, only follows with family practitioner, attempt to get referral however that fell through for some reason. Epigastric abdominal pain -Worsened today, without swelling of her abdomen -GI consulted -Planning EGD however patient has multiple cardiac risk factors, will consult cardiology for cardiac clearance -PPI twice daily and Carafate for now -CT of the abdomen pelvis was done 2 days ago, no acute issues to explain abdominal pain 2. Acute renal insufficiency- mild improvement - mild - most likely secondary to overload -Nephrology consulted as patient does have liver cirrhosis and can rapidly deteriorate. 3. Uncontrolled diabetes- improved - A1c noted - Continue insulin dosages and will adjust as needed for better glucose control - ISS and accuchecks 4. Compensated heart failure - continue current medications but holding LES inhibitor, will restart when renal function continues to improve 5. Afib - rate controlled - on Warfarin, goal is a 2-3 6. Mitral Valve replacement - on Warfarin -On record, patient has bioprosthetic valve, INR goal will still be 2-3 for A. fib, stop Lovenox bridge as patient is now therapeutic, continue current warfarin 7. Disposition -Patient at high risk for bounce back, as she does not have proper specialist care, will plan for EGD when able per GI, cardiology consulted for cardiac clearance. KAREN VIERA Dec 03, 2018 14:24
--- NOTE | 2018-12-03 16:54 | PN ---
Date/Time of Note Date/Time of Note DATE: 12/03/18 TIME: 16:48 Assessment/Plan VTE Prophylaxis Risk score (from [facility])>0 risk: 3 SCD applied (from [facility]): Yes Pharmacological prophylaxis: NA/contraindicated Pharm contraindication: liver dx Lines/Catheters IV [facility]ter Type (from [facility] Urinary Cath still in place: No Assessment/Plan Assessment/Plan Assessment: Acute on chronic epigastric pain -CT abd/pelvis without contrast 11/30- No evidence of urolithiasis, obstructive uropathy or diverticulitis. Nonvisualization appendix. Nodular contour liver compatible with cirrhosis. Varices with ascites - rule out portal hypertension. Patency of the portal vein is indeterminate on this noncontrast study. Cardiomegaly. Liver cirrhosis-with ascites -Status post paracentesis 11/28/2018- Approximately 10 liters of clear yellow fluid was obtained Renal insufficiency Pulmonary hypertension- pt on Sildenafil Heart failure Atrial fibrillation- on Coumadin History of bioprosthetic mitral valve Diabetes Hypertension Plan: EGD on Thursday to rule out esophageal varices and evaluate epigastric pain. Cleared by mechanical lead Continue Carafate 4 times daily and Protonix twice daily NEAL, AMA, ASMA-negative If recurrent or persistent ascites we would recommend TIPs procedure, however we do not do this at this facility. Continue diuretic therapy- with close observation of Cr/BUN Endoscopy - risks/benefits/alternatives/indications of procedure and sedation/anesthesia discussed with patient who states understanding and gives informed consent to proceed. Patient Seen in collaboration with Dr. Hirsch Subjective: Patient is complaining of mild epigastric pain. Denies nausea or vomiting. Discussed the plan for EGD on Thursday. Risks and benefits of the procedure have been reviewed with the patient. Patient is agreeable to the procedure. Exam PHYSICAL EXAMINATION: GENERAL: Alert & oriented x 3, in no acute distress SKIN: No lesions HEAD: Normocephalic, atraumatic, no tenderness. EYES: Pupils equal reactive to light and accommodation, no discharge. EARS/NOSE AND THROAT: Ears normal, nose normal. NECK: Supple, no masses, thyroid normal. CHEST: Inspection within normal limits. CARDIOVASCULAR: Heart: Regular rate and rhythm RESPIRATORY: Lungs clear to auscultation GASTROINTESTINAL AND LIVER: Abdomen: Soft, epigastric tenderness, + distended, + ascites, no guarding, no rebound tenderness, normoactive bowel sounds. Rectal: Deferred. GENITOURINARY: Female genitalia within normal limits. EXTREMITIES: No cyanosis, clubbing or edema. Result Diagram: 12/02/18 0736 12/03/18 0559 Results 24hrs Laboratory Tests Test 12/02/18 17:17 12/02/18 20:58 12/03/18 05:59 12/03/18 08:00 Bedside Glucose 170 176 161 Prothrombin Time 30.8 H Prothrombin Time Ratio 2.4 INR International 2.95 Normalized Ratio Sodium Level 138 Potassium Level 4.4 Chloride Level 95 L Carbon Dioxide Level 34 H Anion Gap 9 Blood Urea Nitrogen 53 H Creatinine 1.28 H Est Glomerular Filtrat 44 L Rate mL/min Glucose Level 153 Calcium Level 9.4 Phosphorus Level 4.3 Magnesium Level 1.9 Test 12/03/18 12:01 Bedside Glucose 212 CC: ELIAS HIRSCH MD ; Exam/Review of Systems Exam Vitals Vital Signs Date Temp Pulse Resp B/P (MAP) Pulse Ox O2 O2 Flow FiO2 Time Delivery Rate 12/03/18 97.9 14:50 12/03/18 79 118/57 13:12 (77) 12/03/18 18 94 08:47 12/01/18 Room Air 15:05 Intake and Output 12/02/18 12/02/18 12/03/18 1515:00 23:00 07:00 IntakeIntake Total 480 ml 240 ml BalanceBalance 480 ml 240 ml Results Results 24hrs Laboratory Tests Test 12/02/18 17:17 12/02/18 20:58 12/03/18 05:59 12/03/18 08:00 Bedside Glucose 170 176 161 Prothrombin Time 30.8 H Prothrombin Time Ratio 2.4 INR International 2.95 Normalized Ratio Sodium Level 138 Potassium Level 4.4 Chloride Level 95 L Carbon Dioxide Level 34 H Anion Gap 9 Blood Urea Nitrogen 53 H Creatinine 1.28 H Est Glomerular Filtrat 44 L Rate mL/min Glucose Level 153 Calcium Level 9.4 Phosphorus Level 4.3 Magnesium Level 1.9 Test 12/03/18 12:01 Bedside Glucose 212 Medications Medication Current Medications IV Flush (NS 3 ml) 3 ml PER PROTOCOL IV ; Start 11/27/18 at 00:30 Ondansetron HCl (Zofran Inj) 4 mg Q6H PRN IV NAUSEA/VOMITING; Start 11/27/18 at 00:30 Acetaminophen (Tylenol Tab) 650 mg Q6H PRN PO .PAIN 1-3 OR TEMP Last administered on 12/02/18 11:30; Admin Dose 650 MG; Start 11/27/18 at 00:30 Bumetanide (Bumex) 1 mg BID DIURETICS PO Last administered on 12/03/18 05:27; Admin Dose 1 MG; Start 11/27/18 at 06:00 Digoxin (Digoxin) 0.125 mg DAILY@1300 PO Last administered on 12/03/18 13:11; Admin Dose 0.125 MG; Start 11/27/18 at 13:00 Ferrous Sulfate (Ferrous Sulfate (Ec)) 325 mg DAILY PO Last administered on 12/03/18 08:46; Admin Dose 325 MG; Start 11/27/18 at 09:00 Insulin Glargine (Lantus) 10 units QHS SC Last administered on 12/02/18 21:00; Admin Dose 10 UNITS; Start 11/27/18 at 21:00 Loratadine (Claritin) 10 mg DAILY PO Last administered on 12/03/18 08:46; Admin Dose 10 MG; Start 11/27/18 at 09:00 Atorvastatin Calcium (Lipitor) 10 mg DAILY@21 PO Last administered on 12/02/18 21:01; Admin Dose 10 MG; Start 11/27/18 at 21:00 Miscellaneous Information 1 ea NOTE XX ; Start 11/27/18 at 01:00 Glucose (Glutose) 15 gm Q15M PRN PO DECREASED GLUCOSE; Start 11/27/18 at 01:00 Glucose (Glutose) 22.5 gm Q15M PRN PO DECREASED GLUCOSE; Start 11/27/18 at 01:00 Dextrose (D50w Syringe) 25 ml Q15M PRN IV DECREASED GLUCOSE; Start 11/27/18 at 01:00 Dextrose (D50w Syringe) 50 ml Q15M PRN IV DECREASED GLUCOSE; Start 11/27/18 at 01:00 Glucagon (Glucagen) 1 mg Q15M PRN IM DECREASED GLUCOSE; Start 11/27/18 at 01:00 Glucose (Glutose) 15 gm Q15M PRN BUCCAL DECREASED GLUCOSE; Start 11/27/18 at 01:00 Miscellaneous Information Patients own medicat... BID@10,16 XX ; Start 11/27/18 at 10:00 Diagnostic Test (Pha) (Accu-Chek) 1 ea 02 XX Last administered on 12/02/18at 02:51; Admin Dose 1 EA; Start 11/28/18 at 02:00 Insulin Aspart (Novolog Insulin Pen) NOVOLOG *MODERATE* ALGORITHM WITH MEALS BEDTIME SC Last administered on 12/03/18 12:03; Admin Dose 4 UNIT; Start 11/28/18 at 18:05 Spironolactone (Aldactone) 25 mg BID PO Last administered on 12/03/18 08:46; Admin Dose 25 MG; Start 11/29/18 at 21:00 Carvedilol (Coreg) 3.125 mg BID PO Last administered on 12/01/18 08:43; Admin Dose 3.125 MG; Start 11/30/18 at 21:00 Lisinopril (Zestril) 2.5 mg DAILY PO Last administered on 12/01/18 08:43; Admin Dose 2.5 MG; Start 12/01/18 at 09:00 Sildenafil Citrate (Revatio) 10 mg TID PO Last administered on 12/03/18 13:11; Admin Dose 10 MG; Start 12/02/18 at 21:00 Tramadol HCl (Ultram) 50 mg Q6H PRN PO MODERATE PAIN LEVEL 4-6; Start 12/02/18 at 13:00 Acetaminophen/ Hydrocodone Bitart ([place] (5/325)) 1 tab Q4H PRN PO MODERATE PAIN LEVEL 4-6; Start 12/02/18 at 13:30 Pantoprazole (Protonix Tab) 40 mg BID@0600,1800 PO Last administered on 12/03/18at 05:27; Admin Dose 40 MG; Start 12/02/18 at 18:00 Sucralfate (Carafate Susp) 1 gm QID PO Last administered on 12/03/18 13:10; Admin Dose 1 GM; Start 12/02/18 at 17:00 Warfarin Sodium (Coumadin) 4 mg DAILY@17 PO ; Start 12/03/18 at 17:00 CARMEN CHAMORRO NP Dec 03, 2018 16:54
[2018-12-03] MEDS ORDERED: WARFARIN 2 MG TAB PO SCH (17:00)
--- NOTE | 2018-12-03 17:24 | RADRPT ---
Vent Rate: 84 bpm RR Interval: 720 msec SC Interval: 105 msec QRS Duration: 173 msec QT Interval: 431 msec QTC Interval: 508 msec P-R-T Grant: 257 - 161 - 236 degrees Sinus or ectopic atrial rhythm...P axis (-45,135) Consider dextrocardia...P, QRS axis rightward Electronically Signed By: Roge Clifford
[2018-12-03 20:00] VITALS: BP 116/62; PULSE 84; RESP 17
[2018-12-03] MEDS: ATORVASTATIN 10 MG TAB PO SCH (20:42)
[2018-12-03] MEDS: INSULIN GLARGINE [LANTus] (100 UNITS/ML) SYG SC SCH (20:53)
[2018-12-04] MEDS: ACCU-CHEK XX SCH (02:36)
[2018-12-04 02:42] VITALS: BP 116/61; PULSE 81; RESP 18
[2018-12-04] MEDS: BUMETANIDE 1 MG TAB PO SCH ×2 (06:33→18:10)
[2018-12-04] MEDS: PANTOPRAZOLE (EC) 40 MG TAB PO SCH ×2 (06:33→18:10)
[2018-12-04] MEDS: INSULIN ASPART [NOVOLOG] 3 ML PEN SC SCH ×4 (08:00→20:53)
[2018-12-04 08:25] VITALS: BP 113/65; PULSE 82; RESP 18
[2018-12-04] MEDS: SUCRALFATE (100 MG/ML) 10ML CUP PO SCH ×4 (08:38→20:49)
[2018-12-04] MEDS: SPIRONOLACTONE 25 MG TAB PO SCH ×2 (08:38→20:49)
[2018-12-04] MEDS: LORATADINE 10 MG TAB PO SCH (08:38)
[2018-12-04] MEDS: FERROUS SULFATE (EC) 325 MG TAB PO SCH (08:38)
[2018-12-04] MEDS: SILDENAFIL 20 MG TAB PO SCH ×3 (08:39→20:49)
[2018-12-04] MEDS: LISINOPRIL 5 MG TAB PO SCH (08:40)
--- NOTE | 2018-12-04 09:17 | PN ---
DATE: 12/04/2018 SUBJECTIVE: The patient is stable, no events overnight. OBJECTIVE: VITAL SIGNS: Blood pressure is 116/61, respiration 19, pulse 71, temperature 98.4. HEENT: Head is normocephalic. NECK: Supple. HEART: Regular rate. LUNGS: Show diminished breath sounds at the base. ABDOMEN: Soft, nontender to palpation without rebound or guarding. EXTREMITIES: Negative for clubbing, cyanosis, no edema. DERMATOLOGIC: No rashes. MUSCULOSKELETAL: No joint effusion. NEUROLOGIC: Unchanged exam. MEDICATIONS: The patient's medications have been reviewed. LABORATORY DATA: Has been reviewed. ASSESSMENT AND PLAN: 1. Nonoliguric acute kidney injury on top of chronic kidney disease with previous baseline creatinin e around 1.0 to 1.3 mg/dL. Etiology of current acute kidney injury was secondary to hemodynamics. R enal function has been fluctuating but overall stable. Continue current treatment plan and monitor c losely on current diuretic regimen, LES inhibitor. 2. Anemia. Monitor H and H levels. 3. Hypomagnesemia. Continue to monitor and replete as needed. 4. Mineral bone disorder, monitor calcium and phosphorus levels. 5. Decompensated cirrhosis. The patient is status post paracentesis. The patient was seen by GI, p ending possible EGD on Thursday. 6. Diabetes. Continue current insulin regimen. 7. Acute on chronic heart failure. Continue current diuretic regimen. Follow up with cardiology. 8. Atrial fibrillation. Continue medical management. 9. History of valvular replacement. Dictated By: JANINA PINEDA/NTS Conf#: [id number] DID#: [id number] CC: JULIO ARCHIBALD MD; KAREN VIERA MD;*EndCC*
[2018-12-04] MEDS: DIGOXIN 0.125 MG TAB PO SCH (12:29)
[2018-12-04 14:56] VITALS: BP 92/52; PULSE 78; RESP 16
--- NOTE | 2018-12-04 15:40 | PN ---
Date/Time of Note Date/Time of Note DATE: 12/04/18 TIME: 15:24 Assessment/Plan VTE Prophylaxis Risk score (from Nsg)>0 risk: 3 SCD applied (from Nsg): No SCD contraindicated: low risk/ambulating Pharmacological prophylaxis: warfarin tx Lines/Catheters IV Catheter Type (from Nrsg): [place] Urinary Cath still in place: No Assessment/Plan Assessment/Plan Assessment: Acute on chronic epigastric pain -CT abd/pelvis without contrast 11/30- No evidence of urolithiasis, obstructive uropathy or diverticulitis. Nonvisualization appendix. Nodular contour liver compatible with cirrhosis. Varices with ascites - rule out portal hypertension. Patency of the portal vein is indeterminate on this noncontrast study. Cardiomegaly. Liver cirrhosis-with ascites -Status post paracentesis 11/28/2018- Approximately 10 liters of clear yellow fluid was obtained Renal insufficiency Pulmonary hypertension- pt on Sildenafil Heart failure Atrial fibrillation- on Coumadin History of bioprosthetic mitral valve Diabetes Hypertension Plan: EGD on Thursday to rule out esophageal varices and evaluate epigastric pain. Cleared by beater tender Hold Coumadin for 3 days prior to procedure Continue Carafate 4 times daily and Protonix twice daily NEAL, AMA, ASMA-negative If recurrent or persistent ascites we would recommend TIPs procedure, however we do not do this at this facility. Continue diuretic therapy- with close observation of Cr/BUN Endoscopy - risks/benefits/alternatives/indications of procedure and sedation/anesthesia discussed with patient who states understanding and gives informed consent to proceed. Patient Seen in collaboration with Dr. Hirsch Subjective: Patient is complaining of mild epigastric pain. Denies nausea or vomiting. Discussed the plan for EGD on Thursday. Will need to hold coumadin prior to procedure for 3 days, starting now. Discussed with nurse. Previously, risks and benefits of the procedure have been reviewed with the patient. Patient is agreeable to the procedure. Exam PHYSICAL EXAMINATION: GENERAL: Alert & oriented x 3, in no acute distress SKIN: No lesions HEAD: Normocephalic, atraumatic, no tenderness. EYES: Pupils equal reactive to light and accommodation, no discharge. EARS/NOSE AND THROAT: Ears normal, nose normal. NECK: Supple, no masses, thyroid normal. CHEST: Inspection within normal limits. CARDIOVASCULAR: Heart: Regular rate and rhythm RESPIRATORY: Lungs clear to auscultation GASTROINTESTINAL AND LIVER: Abdomen: Soft, epigastric tenderness, + distended, + ascites, no guarding, no rebound tenderness, normoactive bowel sounds. Rectal: Deferred. GENITOURINARY: Female genitalia within normal limits. EXTREMITIES: No cyanosis, clubbing or edema. Result Diagram: 12/04/18 0526 12/04/18 0526 Results 24hrs Laboratory Tests Test 12/03/18 17:38 12/03/18 20:39 12/04/18 02:31 12/04/18 05:26 Bedside Glucose 143 186 138 White Blood Count 4.9 Red Blood Count 3.94 L Hemoglobin 11.0 L Hematocrit 34.3 L Mean Corpuscular Volume 87.1 Mean Corpuscular 27.9 L Hemoglobin Mean Corpuscular 32.1 Hemoglobin Concent Red Cell Distribution 16.4 H Width Platelet Count 217 Mean Platelet Volume 10.2 Immature Granulocytes % 0.200 Neutrophils % 59.6 Lymphocytes % 24.5 Monocytes % 11.8 H Eosinophils % 3.1 Basophils % 0.8 Nucleated Red Blood 0.0 Cells % Immature Granulocytes # 0.010 Neutrophils # 2.9 Lymphocytes # 1.2 Monocytes # 0.6 Eosinophils # 0.2 Basophils # 0.0 Nucleated Red Blood 0.0 Cells # Prothrombin Time 31.2 H Prothrombin Time Ratio 2.4 INR International 3.00 Normalized Ratio Sodium Level 140 Potassium Level 4.0 Chloride Level 94 L Carbon Dioxide Level 33 H Anion Gap 13 Blood Urea Nitrogen 65 H Creatinine 1.20 H Est Glomerular Filtrat 47 L Rate mL/min Glucose Level 137 Calcium Level 9.6 Phosphorus Level 4.5 Magnesium Level 2.1 Test 12/04/18 08:11 12/04/18 12:06 Bedside Glucose 136 187 CC: ELIAS HIRSCH MD ; Exam/Review of Systems Exam Vitals Vital Signs Date Temp Pulse Resp B/P (MAP) Pulse Ox O2 O2 Flow FiO2 Time Delivery Rate 12/04/18 98.0 78 16 92/52 (65) 96 14:56 12/01/18 Room Air 15:05 Intake and Output 12/03/18 12/03/18 12/04/18 1515:00 23:00 07:00 IntakeIntake Total 720 ml 240 ml BalanceBalance 720 ml 240 ml Results Results 24hrs Laboratory Tests Test 12/03/18 17:38 12/03/18 20:39 12/04/18 02:31 12/04/18 05:26 Bedside Glucose 143 186 138 White Blood Count 4.9 Red Blood Count 3.94 L Hemoglobin 11.0 L Hematocrit 34.3 L Mean Corpuscular Volume 87.1 Mean Corpuscular 27.9 L Hemoglobin Mean Corpuscular 32.1 Hemoglobin Concent Red Cell Distribution 16.4 H Width Platelet Count 217 Mean Platelet Volume 10.2 Immature Granulocytes % 0.200 Neutrophils % 59.6 Lymphocytes % 24.5 Monocytes % 11.8 H Eosinophils % 3.1 Basophils % 0.8 Nucleated Red Blood 0.0 Cells % Immature Granulocytes # 0.010 Neutrophils # 2.9 Lymphocytes # 1.2 Monocytes # 0.6 Eosinophils # 0.2 Basophils # 0.0 Nucleated Red Blood 0.0 Cells # Prothrombin Time 31.2 H Prothrombin Time Ratio 2.4 INR International 3.00 Normalized Ratio Sodium Level 140 Potassium Level 4.0 Chloride Level 94 L Carbon Dioxide Level 33 H Anion Gap 13 Blood Urea Nitrogen 65 H Creatinine 1.20 H Est Glomerular Filtrat 47 L Rate mL/min Glucose Level 137 Calcium Level 9.6 Phosphorus Level 4.5 Magnesium Level 2.1 Test 12/04/18 08:11 12/04/18 12:06 Bedside Glucose 136 187 Medications Medication Current Medications IV Flush (NS 3 ml) 3 ml PER PROTOCOL IV ; Start 11/27/18 at 00:30 Ondansetron HCl (Zofran Inj) 4 mg Q6H PRN IV NAUSEA/VOMITING; Start 11/27/18 at 00:30 Acetaminophen (Tylenol Tab) 650 mg Q6H PRN PO .PAIN 1-3 OR TEMP Last administered on 12/02/18at 11:30; Admin Dose 650 MG; Start 11/27/18 at 00:30 Bumetanide (Bumex) 1 mg BID DIURETICS PO Last administered on 12/04/18 06:33; Admin Dose 1 MG; Start 11/27/18 at 06:00 Digoxin (Digoxin) 0.125 mg DAILY@1300 PO Last administered on 12/04/18 12:29; Admin Dose 0.125 MG; Start 11/27/18 at 13:00 Ferrous Sulfate (Ferrous Sulfate (Ec)) 325 mg DAILY PO Last administered on 6/8/19at 08:38; Admin Dose 325 MG; Start 11/27/18 at 09:00 Insulin Glargine (Lantus) 10 units QHS SC Last administered on 12/03/18at 20:53; Admin Dose 10 UNITS; Start 11/27/18 at 21:00 Loratadine (Claritin) 10 mg DAILY PO Last administered on 12/04/18 08:38; Admin Dose 10 MG; Start 11/27/18 at 09:00 Atorvastatin Calcium (Lipitor) 10 mg DAILY@21 PO Last administered on 12/03/18 20:42; Admin Dose 10 MG; Start 11/27/18 at 21:00 Miscellaneous Information 1 ea NOTE XX ; Start 11/27/18 at 01:00 Glucose (Glutose) 15 gm Q15M PRN PO DECREASED GLUCOSE; Start 11/27/18 at 01:00 Glucose (Glutose) 22.5 gm Q15M PRN PO DECREASED GLUCOSE; Start 11/27/18 at 01:00 Dextrose (D50w Syringe) 25 ml Q15M PRN IV DECREASED GLUCOSE; Start 11/27/18 at 01:00 Dextrose (D50w Syringe) 50 ml Q15M PRN IV DECREASED GLUCOSE; Start 11/27/18 at 01:00 Glucagon (Glucagen) 1 mg Q15M PRN IM DECREASED GLUCOSE; Start 11/27/18 at 01:00 Glucose (Glutose) 15 gm Q15M PRN BUCCAL DECREASED GLUCOSE; Start 11/27/18 at 01:00 Miscellaneous Information Patients own medicat... BID@10,16 XX ; Start 11/27/18 at 10:00 Diagnostic Test (Pha) (Accu-Chek) 1 ea 02 XX Last administered on 12/04/18at 02:36; Admin Dose 1 EA; Start 11/28/18 at 02:00 Insulin Aspart (Novolog Insulin Pen) NOVOLOG *MODERATE* ALGORITHM WITH MEALS BEDTIME SC Last administered on 12/04/18 12:23; Admin Dose 4 UNIT; Start 11/28/18 at 18:05 Spironolactone (Aldactone) 25 mg BID PO Last administered on 12/04/18 08:38; Admin Dose 25 MG; Start 11/29/18 at 21:00 Carvedilol (Coreg) 3.125 mg BID PO Last administered on 12/04/18 08:40; Admin Dose 3.125 MG; Start 11/30/18 at 21:00 Lisinopril (Zestril) 2.5 mg DAILY PO Last administered on 12/04/18 08:40; Admin Dose 2.5 MG; Start 12/01/18 at 09:00 Sildenafil Citrate (Revatio) 10 mg TID PO Last administered on 12/04/18 12:21; Admin Dose 10 MG; Start 12/02/18 at 21:00 Tramadol HCl (Ultram) 50 mg Q6H PRN PO MODERATE PAIN LEVEL 4-6; Start 12/02/18 at 13:00 Acetaminophen/ Hydrocodone Bitart ([place] (5/325)) 1 tab Q4H PRN PO MODERATE PAIN LEVEL 4-6; Start 12/02/18 at 13:30 Pantoprazole (Protonix Tab) 40 mg BID@0600,1800 PO Last administered on 12/04/18 06:33; Admin Dose 40 MG; Start 12/02/18 at 18:00 Sucralfate (Carafate Susp) 1 gm QID PO Last administered on 12/04/18 12:21; Admin Dose 1 GM; Start 12/02/18 at 17:00 Warfarin Sodium (Coumadin) 4 mg DAILY@17 PO Last administered on 12/03/18 17:39; Admin Dose 4 MG; Start 12/03/18 at 17:00; Status Hold JOY GILLETTE MUSHROOM GROWER Dec 04, 2018 15:35
--- NOTE | 2018-12-04 15:54 | PN ---
Date/Time of Note Date/Time of Note DATE: 12/04/18 TIME: 15:52 Objective Vitals Vital Signs Date Temp Pulse Resp B/P (MAP) Pulse Ox O2 O2 Flow FiO2 Time Delivery Rate 12/04/18 98.0 78 16 92/52 (65) 96 14:56 12/01/18 Room Air 15:05 Intake and Output 12/03/18 12/03/18 12/04/18 1515:00 23:00 07:00 IntakeIntake Total 720 ml 240 ml BalanceBalance 720 ml 240 ml Results Result Diagram: 12/04/1852512/04/18525 Medications Medications Current Medications IV Flush (NS 3 ml) 3 ml PER PROTOCOL IV ; Start 11/27/18 at 00:30 Ondansetron HCl (Zofran Inj) 4 mg Q6H PRN IV NAUSEA/VOMITING; Start 11/27/18 at 00:30 Acetaminophen (Tylenol Tab) 650 mg Q6H PRN PO .PAIN 1-3 OR TEMP Last administered on 12/02/18 11:30; Admin Dose 650 MG; Start 11/27/18 at 00:30 Bumetanide (Bumex) 1 mg BID DIURETICS PO Last administered on 12/04/18 06:33; Admin Dose 1 MG; Start 11/27/18 at 06:00 Digoxin (Digoxin) 0.125 mg DAILY@1300 PO Last administered on 12/04/18 12:29; Admin Dose 0.125 MG; Start 11/27/18 at 13:00 Ferrous Sulfate (Ferrous Sulfate (Ec)) 325 mg DAILY PO Last administered on 12/04/18 08:38; Admin Dose 325 MG; Start 11/27/18 at 09:00 Insulin Glargine (Lantus) 10 units QHS SC Last administered on 12/03/18 20:53; Admin Dose 10 UNITS; Start 11/27/18 at 21:00 Loratadine (Claritin) 10 mg DAILY PO Last administered on 12/04/18 08:38; Admin Dose 10 MG; Start 11/27/18 at 09:00 Atorvastatin Calcium (Lipitor) 10 mg DAILY@21 PO Last administered on 12/03/18 20:42; Admin Dose 10 MG; Start 11/27/18 at 21:00 Miscellaneous Information 1 ea NOTE XX ; Start 11/27/18 at 01:00 Glucose (Glutose) 15 gm Q15M PRN PO DECREASED GLUCOSE; Start 11/27/18 at 01:00 Glucose (Glutose) 22.5 gm Q15M PRN PO DECREASED GLUCOSE; Start 11/27/18 at 01:00 Dextrose (D50w Syringe) 25 ml Q15M PRN IV DECREASED GLUCOSE; Start 11/27/18 at 01:00 Dextrose (D50w Syringe) 50 ml Q15M PRN IV DECREASED GLUCOSE; Start 11/27/18 at 01:00 Glucagon (Glucagen) 1 mg Q15M PRN IM DECREASED GLUCOSE; Start 11/27/18 at 01:00 Glucose (Glutose) 15 gm Q15M PRN BUCCAL DECREASED GLUCOSE; Start 11/27/18 at 01:00 Miscellaneous Information Patients own medicat... BID@10,16 XX ; Start 11/27/18 at 10:00 Diagnostic Test (Pha) (Accu-Chek) 1 ea 02 XX Last administered on 12/04/18at 02:36; Admin Dose 1 EA; Start 11/28/18 at 02:00 Insulin Aspart (Novolog Insulin Pen) NOVOLOG *MODERATE* ALGORITHM WITH MEALS BEDTIME SC Last administered on 12/04/18 12:23; Admin Dose 4 UNIT; Start 11/28/18 at 18:05 Spironolactone (Aldactone) 25 mg BID PO Last administered on 12/04/18at 08:38; Admin Dose 25 MG; Start 11/29/18 at 21:00 Carvedilol (Coreg) 3.125 mg BID PO Last administered on 12/04/18 08:40; Admin Dose 3.125 MG; Start 11/30/18 at 21:00 Lisinopril (Zestril) 2.5 mg DAILY PO Last administered on 12/04/18 08:40; Admin Dose 2.5 MG; Start 12/01/18 at 09:00 Sildenafil Citrate (Revatio) 10 mg TID PO Last administered on 12/04/18 12:21; Admin Dose 10 MG; Start 12/02/18 at 21:00 Tramadol HCl (Ultram) 50 mg Q6H PRN PO MODERATE PAIN LEVEL 4-6; Start 12/02/18 at 13:00 Acetaminophen/ Hydrocodone Bitart ([place] (5/325)) 1 tab Q4H PRN PO MODERATE PAIN LEVEL 4-6; Start 12/02/18 at 13:30 Pantoprazole (Protonix Tab) 40 mg BID@0600,1800 PO Last administered on 12/04/18at 06:33; Admin Dose 40 MG; Start 12/02/18 at 18:00 Sucralfate (Carafate Susp) 1 gm QID PO Last administered on 12/04/18at 12:21; Admin Dose 1 GM; Start 12/02/18 at 17:00 VTE Prophylaxis Risk score (from [facility])>0 risk: 3 SCD applied (from [facility]): No SCD contraindication: other Lines/Catheters IV Catheter Type: Cisse in Place: No Assessment/Plan Hospital Course Subjective Patient stating her epigastric pain has subsided to very mild pain Objective Physical exam General: Patient is laying in bed and answers questions appropriately Mentation: Patient is alert and oriented 4, Head: Normocephalic atraumatic Eyes: EOMI, pupils reactive to light Neck: Supple, nontender, midline Respiratory: Clear to auscultation bilaterally Cardiovascular: regular rate, no obvious murmurs Gastrointestinal: Mildly-tender to palpation, bowel sounds heard. Moderately distended Neurological: Moves all extremities spontaneously Skin: No new skin lesions Assessment/Plan Ascites secondary to liver cirrhosis -10 L taken out with paracentesis - Diuretics on board, increase spironolactone as tolerated as this is the last diuretic that can be adjusted. - noted with early changes of cirrhosis seen on RUQ US and CT from prior admissions -Patient does not see a GI physician outpatient, only follows with family practitioner, attempt to get referral however that fell through for some reason. Epigastric abdominal pain -GI consulted -Planning EGD however patient has multiple cardiac risk factors, will consult cardiology for cardiac clearance -PPI twice daily and Carafate for now -CT of the abdomen pelvis was done 2 days ago, no acute issues to explain abdominal pain Acute renal insufficiency- mild improvement - mild - most likely secondary to overload -Nephrology consulted as patient does have liver cirrhosis and can rapidly deteriorate. Uncontrolled diabetes- improved - A1c noted - Continue insulin dosages and will adjust as needed for better glucose control - ISS and accuchecks Compensated heart failure - continue current medications but holding LES inhibitor, will restart when renal function continues to improve Afib - rate controlled - on Warfarin, goal is a 2-3 Mitral Valve replacement - on Warfarin -On record, patient has bioprosthetic valve, INR goal will still be 2-3 for A. fib, stop Lovenox bridge as patient is now therapeutic, continue current warfar in Disposition -Patient at high risk for bounce back, as she does not have proper specialist care, will plan for EGD when able per GI, cardiology consulted for cardiac clearance. GI would like to hold warfarin for 3 days prior to procedure. Patient is currently still therapeutic once patient is non-therapeutic will use Lovenox for prophylaxis. KAREN VIERA Dec 04, 2018 15:54
[2018-12-04 20:00] VITALS: BP 92/51; PULSE 75; RESP 18
[2018-12-04] MEDS: ATORVASTATIN 10 MG TAB PO SCH (20:49)
[2018-12-04] MEDS: INSULIN GLARGINE [LANTus] (100 UNITS/ML) SYG SC SCH (20:52)
[2018-12-04] MEDS: ACETAMINOPHEN 325 MG TAB PO PRN (21:10)
[2018-12-04 22:00] VITALS: BP 104/60
[2018-12-05] VITALS (7 sets, daily range): BP systolic 89–112; BP diastolic 45–57; PULSE 64–83; RESP 16–20
[2018-12-05] MEDS: ACCU-CHEK XX SCH (01:43)
[2018-12-05] MEDS ORDERED: ZOLPIDEM 5 MG TAB PO ONE (02:30)
[2018-12-05] MEDS: BUMETANIDE 1 MG TAB PO SCH (06:00)
[2018-12-05] MEDS: PANTOPRAZOLE (EC) 40 MG TAB PO SCH ×2 (06:00→17:38)
--- NOTE | 2018-12-05 06:33 | CONS ---
Assessment/Plan Assessment/Plan Hospital Course (Demo Recall) Preoperative cardiac risk stratification Impression: Acute decompensated left ventricular and right ventricular systolic failure- improved Cardiomyopathy left ventricular ejection fraction 45% RV dysfunction Severe pulmonary hypertension Atrial fibrillation History of bioprosthetic mitral valve Diabetes Hypertension Recommendations: She appears optimized for endoscopy tomorrow. Continue current medications. Consultation Date/Type/Reason Admit Date/Time November 26, 2018 at 22:46 Initial Consult Date 12/02/18 Type of Consult Cardiology Requesting Provider: KAREN VIERA Date/Time of Note DATE: 12/05/18 TIME: 06:30 24 HR Interval Summary Free Text/Dictation Resting comfortably, no abdominal pain, no dyspnea Exam/Review of Systems Vital Signs Vitals Vital Signs Date Temp Pulse Resp B/P (MAP) Pulse Ox O2 O2 Flow FiO2 Time Delivery Rate 12/05/18 97.6 64 18 91/51 (64) 97 Room Air 02:00 Intake and Output 12/04/18 12/04/18 12/05/18 1515:00 23:00 07:00 IntakeIntake Total 1400 ml 120 ml BalanceBalance 1400 ml 120 ml Exam Constitutional: oriented, well developed Psych: no complaints, nl mood/affect Head: normocephalic, atraumatic Eyes: EOMI, nl lids ENMT: nl external ears & nose Neck: No jvd, No bruits Respiratory: clear to auscultation, normal air movement Cardiovascular: regular rate and rhythm; No murmurs/extra sounds Gastrointestinal: soft, non-tender Musculoskeletal: nl extremities to inspection Extremities: No edema Neurological: nl speech Skin: nl turgor Labs Result Diagram: 12/04/1852512/04/18 05 Results 24hrs Laboratory Tests Test 12/04/18 08:11 12/04/18 12:06 12/04/18 17:25 12/04/18 20:47 Bedside Glucose 136 187 135 205 Test 12/05/18 01:51 Bedside Glucose 123 Medications Medications Current Medications IV Flush (NS 3 ml) 3 ml PER PROTOCOL IV ; Start 11/27/18 at 00:30 Ondansetron HCl (Zofran Inj) 4 mg Q6H PRN IV NAUSEA/VOMITING; Start 11/27/18 at 00:30 Acetaminophen (Tylenol Tab) 650 mg Q6H PRN PO .PAIN 1-3 OR TEMP Last administered on 12/04/18 21:10; Admin Dose 650 MG; Start 11/27/18 at 00:30 Bumetanide (Bumex) 1 mg BID DIURETICS PO Last administered on 12/05/18 06:00; Admin Dose 1 MG; Start 11/27/18 at 06:00 Digoxin (Digoxin) 0.125 mg DAILY@1300 PO Last administered on 12/04/18 12:29; Admin Dose 0.125 MG; Start 11/27/18 at 13:00 Ferrous Sulfate (Ferrous Sulfate (Ec)) 325 mg DAILY PO Last administered on 12/04/18 08:38; Admin Dose 325 MG; Start 11/27/18 at 09:00 Insulin Glargine (Lantus) 10 units QHS SC Last administered on 12/04/18 20:52; Admin Dose 10 UNITS; Start 11/27/18 at 21:00 Loratadine (Claritin) 10 mg DAILY PO Last administered on 12/04/18 08:38; Admin Dose 10 MG; Start 11/27/18 at 09:00 Atorvastatin Calcium (Lipitor) 10 mg DAILY@21 PO Last administered on 12/04/18 20:49; Admin Dose 10 MG; Start 11/27/18 at 21:00 Miscellaneous Information 1 ea NOTE XX ; Start 11/27/18 at 01:00 Glucose (Glutose) 15 gm Q15M PRN PO DECREASED GLUCOSE; Start 11/27/18 at 01:00 Glucose (Glutose) 22.5 gm Q15M PRN PO DECREASED GLUCOSE; Start 11/27/18 at 01:00 Dextrose (D50w Syringe) 25 ml Q15M PRN IV DECREASED GLUCOSE; Start 11/27/18 at 01:00 Dextrose (D50w Syringe) 50 ml Q15M PRN IV DECREASED GLUCOSE; Start 11/27/18 at 01:00 Glucagon (Glucagen) 1 mg Q15M PRN IM DECREASED GLUCOSE; Start 11/27/18 at 01:00 Glucose (Glutose) 15 gm Q15M PRN BUCCAL DECREASED GLUCOSE; Start 11/27/18 at 01:00 Miscellaneous Information Patients own medicat... BID@10,16 XX ; Start 11/27/18 at 10:00 Diagnostic Test (Pha) (Accu-Chek) 1 ea 02 XX Last administered on 12/04/18 02:36; Admin Dose 1 EA; Start 11/28/18 at 02:00 Insulin Aspart (Novolog Insulin Pen) NOVOLOG *MODERATE* ALGORITHM WITH MEALS BEDTIME SC Last administered on 12/04/18 20:53; Admin Dose 1 UNIT; Start 11/28/18 at 18:05 Spironolactone (Aldactone) 25 mg BID PO Last administered on 12/04/18 08:38; Admin Dose 25 MG; Start 11/29/18 at 21:00 Carvedilol (Coreg) 3.125 mg BID PO Last administered on 12/04/18 08:40; Admin Dose 3.125 MG; Start 11/30/18 at 21:00 Lisinopril (Zestril) 2.5 mg DAILY PO Last administered on 12/04/18 08:40; Admin Dose 2.5 MG; Start 12/01/18 at 09:00 Sildenafil Citrate (Revatio) 10 mg TID PO Last administered on 12/04/18 12:21; Admin Dose 10 MG; Start 12/02/18 at 21:00 Tramadol HCl (Ultram) 50 mg Q6H PRN PO MODERATE PAIN LEVEL 4-6; Start 12/02/18 at 13:00 Acetaminophen/ Hydrocodone Bitart ([place] (5/325)) 1 tab Q4H PRN PO MODERATE PAIN LEVEL 4-6; Start 12/02/18 at 13:30 Pantoprazole (Protonix Tab) 40 mg BID@0600,1800 PO Last administered on 12/05/18 06:00; Admin Dose 40 MG; Start 12/02/18 at 18:00 Sucralfate (Carafate Susp) 1 gm QID PO Last administered on 12/04/18 20:49; Admin Dose 1 GM; Start 12/02/18 at 17:00 CHAS EDGE Dec 05, 2018 06:33
[2018-12-05] MEDS: INSULIN ASPART [NOVOLOG] 3 ML PEN SC SCH ×4 (08:00→21:53)
--- NOTE | 2018-12-05 08:17 | PN ---
DATE: 12/05/2018 SUBJECTIVE: The patient is stable, no events overnight. No fevers, chills, nausea, vomiting. No ot her events noted overnight. No shortness of breath. OBJECTIVE: VITAL SIGNS: Blood pressure is 91/51, respiration 18, pulse 64, temperature 97.6. HEENT: Head is normocephalic. NECK: Supple. HEART: Regular rate. LUNGS: Show diminished breath sounds at the base. ABDOMEN: Soft, distended. EXTREMITIES: Negative for clubbing, cyanosis, no edema. DERMATOLOGIC: No rashes. MUSCULOSKELETAL: No joint effusion. NEUROLOGIC: No change in exam. MEDICATIONS: The patient's medications have been reviewed. LABORATORY DATA: Has been reviewed. IMAGING STUDIES: Have been reviewed. ASSESSMENT AND PLAN: 1. Nonoliguric acute kidney injury on top of chronic kidney disease with previous baseline creatinin e around 1.0 to 1.3 mg/dL. Etiology of acute kidney injury is secondary to hemodynamics. The patien t's renal function has declined in the last 24 hours. This is likely due to diuretic therapy, LES in hibitor effect. The plan at this point, is to hold diuretics. Will hold LES inhibitor. Will contin ue to monitor renal function closely. 2. Alkalosis. Etiology is likely metabolic due to diuretic therapy. We will hold diuretic therapy as stated above and monitor. 3. Mineral bone disorder. The patient is hyperphosphatemic secondary to acute kidney injury. Walker nue to monitor. No need for phosphate binders at this time. 4. Anemia. Monitor hemoglobin and hematocrit levels. 5. Hypomagnesemia. Continue to monitor and replete as needed. 6. Decompensated cirrhosis. The patient has noted ascites, status post paracentesis. Continue to m onitor, holding diuretic therapy as stated above. Follow up with GI. The patient is pending possibl e EGD on Thursday. 7. Diabetes. Continue current insulin regimen. 8. Acute on chronic heart failure. Patient appears near euvolemic on exam. Will hold diuretic ther apy as stated above. Follow up with cardiology. 9. Atrial fibrillation. Continue medical management. 10. History of valvular replacement. Dictated By: JANINA PINEDA/SULTANA Conf#: [id number] DID#: [id number] CC: JULIO ARCHIBALD MD; KAREN VIERA MD;*EndCC*
[2018-12-05] MEDS: SILDENAFIL 20 MG TAB PO SCH ×3 (09:00→21:00)
[2018-12-05] MEDS: SUCRALFATE (100 MG/ML) 10ML CUP PO SCH ×4 (09:38→21:49)
[2018-12-05] MEDS: LORATADINE 10 MG TAB PO SCH (09:39)
[2018-12-05] MEDS: FERROUS SULFATE (EC) 325 MG TAB PO SCH (09:39)
--- NOTE | 2018-12-05 13:18 | PN ---
Date/Time of Note Date/Time of Note DATE: 12/05/18 TIME: 13:11 Objective Vitals Vital Signs Date Temp Pulse Resp B/P (MAP) Pulse Ox O2 O2 Flow FiO2 Time Delivery Rate 12/05/18 98.0 73 16 91/50 (64) 95 08:08 12/05/18 Room Air 02:00 Intake and Output 12/04/18 12/04/18 12/05/18 1515:00 23:00 07:00 IntakeIntake Total 1400 ml 120 ml BalanceBalance 1400 ml 120 ml Results Result Diagram: 12/04/18 0512/05/18 0524 Medications Medications Current Medications IV Flush (NS 3 ml) 3 ml PER PROTOCOL IV ; Start 11/27/18 at 00:30 Ondansetron HCl (Zofran Inj) 4 mg Q6H PRN IV NAUSEA/VOMITING; Start 11/27/18 at 00:30 Acetaminophen (Tylenol Tab) 650 mg Q6H PRN PO .PAIN 1-3 OR TEMP Last administered on 12/04/18 21:10; Admin Dose 650 MG; Start 11/27/18 at 00:30 Bumetanide (Bumex) 1 mg BID DIURETICS PO Last administered on 12/05/18 06:00; Admin Dose 1 MG; Start 11/27/18 at 06:00; Status Hold Digoxin (Digoxin) 0.125 mg DAILY@1300 PO Last administered on 12/04/18 12:29; Admin Dose 0.125 MG; Start 11/27/18 at 13:00 Ferrous Sulfate (Ferrous Sulfate (Ec)) 325 mg DAILY PO Last administered on 12/05/18 09:39; Admin Dose 325 MG; Start 11/27/18 at 09:00 Insulin Glargine (Lantus) 10 units QHS SC Last administered on 12/04/18 20:52; Admin Dose 10 UNITS; Start 11/27/18 at 21:00 Loratadine (Claritin) 10 mg DAILY PO Last administered on 12/05/18 09:39; Admin Dose 10 MG; Start 11/27/18 at 09:00 Atorvastatin Calcium (Lipitor) 10 mg DAILY@21 PO Last administered on 12/04/18 20:49; Admin Dose 10 MG; Start 11/27/18 at 21:00 Miscellaneous Information 1 ea NOTE XX ; Start 11/27/18 at 01:00 Glucose (Glutose) 15 gm Q15M PRN PO DECREASED GLUCOSE; Start 11/27/18 at 01:00 Glucose (Glutose) 22.5 gm Q15M PRN PO DECREASED GLUCOSE; Start 11/27/18 at 01:00 Dextrose (D50w Syringe) 25 ml Q15M PRN IV DECREASED GLUCOSE; Start 11/27/18 at 01:00 Dextrose (D50w Syringe) 50 ml Q15M PRN IV DECREASED GLUCOSE; Start 11/27/18 at 01:00 Glucagon (Glucagen) 1 mg Q15M PRN IM DECREASED GLUCOSE; Start 11/27/18 at 01:00 Glucose (Glutose) 15 gm Q15M PRN BUCCAL DECREASED GLUCOSE; Start 11/27/18 at 01:00 Miscellaneous Information Patients own medicat... BID@10,16 XX ; Start 11/27/18 at 10:00 Diagnostic Test (Pha) (Accu-Chek) 1 ea 02 XX Last administered on 12/04/18at 02:36; Admin Dose 1 EA; Start 11/28/18 at 02:00 Insulin Aspart (Novolog Insulin Pen) NOVOLOG *MODERATE* ALGORITHM WITH MEALS BEDTIME SC Last administered on 12/05/18 12:24; Admin Dose 2 UNIT; Start 11/28/18 at 18:05 Spironolactone (Aldactone) 25 mg BID PO Last administered on 12/04/18at 08:38; Admin Dose 25 MG; Start 11/29/18 at 21:00; Status Hold Carvedilol (Coreg) 3.125 mg BID PO Last administered on 12/04/18 08:40; Admin Dose 3.125 MG; Start 11/30/18 at 21:00 Lisinopril (Zestril) 2.5 mg DAILY PO Last administered on 12/04/18 08:40; Admin Dose 2.5 MG; Start 12/01/18 at 09:00; Status Hold Sildenafil Citrate (Revatio) 10 mg TID PO Last administered on 12/04/18 12:21; Admin Dose 10 MG; Start 12/02/18 at 21:00 Tramadol HCl (Ultram) 50 mg Q6H PRN PO MODERATE PAIN LEVEL 4-6; Start 12/02/18 at 13:00 Acetaminophen/ Hydrocodone Bitart ([place] (5/325)) 1 tab Q4H PRN PO MODERATE PAIN LEVEL 4-6; Start 12/02/18 at 13:30 Pantoprazole (Protonix Tab) 40 mg BID@0600,1800 PO Last administered on 12/05/18at 06:00; Admin Dose 40 MG; Start 12/02/18 at 18:00 Sucralfate (Carafate Susp) 1 gm QID PO Last administered on 12/05/18at 09:38; Admin Dose 1 GM; Start 12/02/18 at 17:00 Warfarin Sodium (Coumadin) 4 mg DAILY@17 PO ; Start 12/05/18 at 17:00 VTE Prophylaxis Risk score (from Ns)>0 risk: 3 SCD applied (from [facility] [place]): No SCD contraindication: other Lines/Catheters IV Catheter Type: Cisse in Place: No Assessment/Plan Hospital Course Subjective Patient stating her epigastric pain has subsided Objective Physical exam General: Patient is laying in bed and answers questions appropriately Mentation: Patient is alert and oriented 4, Head: Normocephalic atraumatic Eyes: EOMI, pupils reactive to light Neck: Supple, nontender, midline Respiratory: Clear to auscultation bilaterally Cardiovascular: regular rate, no obvious murmurs Gastrointestinal: nontender to palpation, bowel sounds heard. Moderately distended Neurological: Moves all extremities spontaneously Skin: No new skin lesions Assessment/Plan Ascites secondary to liver cirrhosis -10 L taken out with paracentesis - Diuretics on board, increase spironolactone as tolerated as this is the last diuretic that can be adjusted. - noted with early changes of cirrhosis seen on RUQ US and CT from prior admissions -Patient does not see a GI physician outpatient, only follows with family practitioner, attempt to get referral however that fell through for some reason. Epigastric abdominal pain, resolved -GI consulted -after discussing with patient the risks involved with EGD and with her current cardiac issues and risks involved, due to patient's resolution of abdominal pain with current medications, she wanted to differ the procedure for outpatient when she is more stable. -PPI twice daily and Carafate for now -CT of the abdomen pelvis was done 2 days ago, no acute issues to explain abdominal pain Acute renal insufficiency - mild -Nephrology consulted as patient does have liver cirrhosis and can rapidly deteriorate. -holding acei and diuretics for now per nephrology Uncontrolled diabetes- improved - A1c noted - Continue insulin dosages and will adjust as needed for better glucose control - ISS and accuchecks Compensated heart failure - continue current medications but holding LES inhibitor, will restart when renal function continues to improve Afib - rate controlled - on Warfarin, goal is a 2-3 Mitral Valve replacement - on Warfarin -On record, patient has bioprosthetic valve, INR goal will still be 2-3 for A. fib, pulmonary HTN -severe, went down on sildenafil due to BP issues, titrate back up as tolerated. Disposition -patient's Cr needs to stabilize before DC, will need to continue to titrate diuretics as patient is a bounce back risk, will need to titrate up on sildenafil as tolerated for her pulm htn. KAREN VIERA Dec 05, 2018 13:18
[2018-12-05] MEDS: DIGOXIN 0.125 MG TAB PO SCH (14:19)
--- NOTE | 2018-12-05 14:38 | PN ---
JOY GILLETTE NICKO 12/05/18 1438: Date/Time of Note Date/Time of Note DATE: 12/05/18 TIME: 14:34 Assessment/Plan VTE Prophylaxis Risk score (from Ns)>0 risk: 3 SCD applied (from Ns): No SCD contraindicated: low risk/ambulating Pharmacological prophylaxis: NA/contraindicated Pharm contraindication: liver dx Lines/Catheters [facility] Urinary Cath still in place: No Assessment/Plan Assessment/Plan Assessment: Acute on chronic epigastric pain -CT abd/pelvis without contrast 11/30- No evidence of urolithiasis, obstructive uropathy or diverticulitis. Nonvisualization appendix. Nodular contour liver compatible with cirrhosis. Varices with ascites - rule out portal hypertension. Patency of the portal vein is indeterminate on this noncontrast study. Cardiomegaly. Liver cirrhosis-with ascites -Status post paracentesis 11/28/2018- Approximately 10 liters of clear yellow fluid was obtained Renal insufficiency Pulmonary hypertension- pt on Sildenafil Heart failure Atrial fibrillation- on Coumadin History of bioprosthetic mitral valve Diabetes Hypertension Plan: Per discussion with patient and hospitalist, will hold off on EGD for now, can be done as outpatient. Resume Coumadin for 3 days prior to procedure Continue Carafate 4 times daily and Protonix twice daily NEAL, AMA, ASMA-negative If recurrent or persistent ascites we would recommend TIPs procedure, however we do not do this at this facility. Continue diuretic therapy- with close observation of Cr/BUN Endoscopy - risks/benefits/alternatives/indications of procedure and sedation/anesthesia discussed with patient who states understanding and gives informed consent to proceed. Patient Seen in collaboration with Dr. Hirsch Subjective: Patient denies any further epigastric pain Denies nausea or vomiting. Discussed need for EGD as outpatient. Tolerating diet. Continue current treatment plan. Exam PHYSICAL EXAMINATION: GENERAL: Alert & oriented x 3, in no acute distress SKIN: No lesions HEAD: Normocephalic, atraumatic, no tenderness. EYES: Pupils equal reactive to light and accommodation, no discharge. EARS/NOSE AND THROAT: Ears normal, nose normal. NECK: Supple, no masses, thyroid normal. CHEST: Inspection within normal limits. CARDIOVASCULAR: Heart: Regular rate and rhythm RESPIRATORY: Lungs clear to auscultation GASTROINTESTINAL AND LIVER: Abdomen: Soft, nontender, nondistended, mild ascites ascites, no guarding, no rebound tenderness, normoactive bowel sounds. Rectal: Deferred. EXTREMITIES: No cyanosis, clubbing or edema. Result Diagram: 12/04/18 0512/05/1824 Results 24hrs Laboratory Tests Test 12/04/18 17:25 12/04/18 20:47 12/05/18 01:51 12/05/18 05:24 Bedside Glucose 135 205 123 Prothrombin Time 30.4 H Prothrombin Time Ratio 2.4 INR International 2.90 Normalized Ratio Sodium Level 138 Potassium Level 4.0 Chloride Level 92 L Carbon Dioxide Level 32 H Anion Gap 14 H Blood Urea Nitrogen 76 H Creatinine 1.59 H Est Glomerular Filtrat 34 L Rate mL/min Glucose Level 121 Calcium Level 9.8 Phosphorus Level 5.1 H Magnesium Level 2.1 Test 12/05/18 08:23 12/05/18 12:22 Bedside Glucose 138 161 CC: ELIAS HIRSCH MD ; Exam/Review of Systems Exam Vitals Vital Signs Date Temp Pulse Resp B/P (MAP) Pulse Ox O2 O2 Flow FiO2 Time Delivery Rate 12/05/18 97.9 83 18 112/57 93 14:17 (75) 12/05/18 Room Air 02:00 Intake and Output 12/04/18 12/04/18 12/05/18 1515:00 23:00 07:00 IntakeIntake Total 1400 ml 120 ml BalanceBalance 1400 ml 120 ml Results Result Diagram: 12/04/1852512/05/1824 Results 24hrs Laboratory Tests Test 12/04/18 17:25 12/04/18 20:47 12/05/18 01:51 12/05/18 05:24 Bedside Glucose 135 205 123 Prothrombin Time 30.4 H Prothrombin Time Ratio 2.4 INR International 2.90 Normalized Ratio Sodium Level 138 Potassium Level 4.0 Chloride Level 92 L Carbon Dioxide Level 32 H Anion Gap 14 H Blood Urea Nitrogen 76 H Creatinine 1.59 H Est Glomerular Filtrat 34 L Rate mL/min Glucose Level 121 Calcium Level 9.8 Phosphorus Level 5.1 H Magnesium Level 2.1 Test 12/05/18 08:23 12/05/18 12:22 Bedside Glucose 138 161 Medications Medication Current Medications IV Flush (NS 3 ml) 3 ml PER PROTOCOL IV ; Start 11/27/18 at 00:30 Ondansetron HCl (Zofran Inj) 4 mg Q6H PRN IV NAUSEA/VOMITING; Start 11/27/18 at 00:30 Acetaminophen (Tylenol Tab) 650 mg Q6H PRN PO .PAIN 1-3 OR TEMP Last administered on 12/04/18 21:10; Admin Dose 650 MG; Start 11/27/18 at 00:30 Bumetanide (Bumex) 1 mg BID DIURETICS PO Last administered on 12/05/18 06:00; Admin Dose 1 MG; Start 11/27/18 at 06:00; Status Hold Digoxin (Digoxin) 0.125 mg DAILY@1300 PO Last administered on 12/05/18 14:19; Admin Dose 0.125 MG; Start 11/27/18 at 13:00 Ferrous Sulfate (Ferrous Sulfate (Ec)) 325 mg DAILY PO Last administered on 12/05/18 09:39; Admin Dose 325 MG; Start 11/27/18 at 09:00 Insulin Glargine (Lantus) 10 units QHS SC Last administered on 12/04/18 20:52; Admin Dose 10 UNITS; Start 11/27/18 at 21:00 Loratadine (Claritin) 10 mg DAILY PO Last administered on 12/05/18 09:39; Admin Dose 10 MG; Start 11/27/18 at 09:00 Atorvastatin Calcium (Lipitor) 10 mg DAILY@21 PO Last administered on 12/04/18 20:49; Admin Dose 10 MG; Start 11/27/18 at 21:00 Miscellaneous Information 1 ea NOTE XX ; Start 11/27/18 at 01:00 Glucose (Glutose) 15 gm Q15M PRN PO DECREASED GLUCOSE; Start 11/27/18 at 01:00 Glucose (Glutose) 22.5 gm Q15M PRN PO DECREASED GLUCOSE; Start 11/27/18 at 01:00 Dextrose (D50w Syringe) 25 ml Q15M PRN IV DECREASED GLUCOSE; Start 11/27/18 at 01:00 Dextrose (D50w Syringe) 50 ml Q15M PRN IV DECREASED GLUCOSE; Start 11/27/18 at 01:00 Glucagon (Glucagen) 1 mg Q15M PRN IM DECREASED GLUCOSE; Start 11/27/18 at 01:00 Glucose (Glutose) 15 gm Q15M PRN BUCCAL DECREASED GLUCOSE; Start 11/27/18 at 01:00 Miscellaneous Information Patients own medicat... BID@10,16 XX ; Start 11/27/18 at 10:00 Diagnostic Test (Pha) (Accu-Chek) 1 ea 02 XX Last administered on 12/04/18at 02:36; Admin Dose 1 EA; Start 11/28/18 at 02:00 Insulin Aspart (Novolog Insulin Pen) NOVOLOG *MODERATE* ALGORITHM WITH MEALS BEDTIME SC Last administered on 12/05/18at 12:24; Admin Dose 2 UNIT; Start 11/28/18 at 18:05 Spironolactone (Aldactone) 25 mg BID PO Last administered on 12/04/18 08:38; Admin Dose 25 MG; Start 11/29/18 at 21:00; Status Hold Carvedilol (Coreg) 3.125 mg BID PO Last administered on 12/04/18at 08:40; Admin Dose 3.125 MG; Start 11/30/18 at 21:00 Lisinopril (Zestril) 2.5 mg DAILY PO Last administered on 12/04/18at 08:40; Admin Dose 2.5 MG; Start 12/01/18 at 09:00; Status Hold Sildenafil Citrate (Revatio) 10 mg TID PO Last administered on 12/05/18at 14:16; Admin Dose 10 MG; Start 12/02/18 at 21:00 Tramadol HCl (Ultram) 50 mg Q6H PRN PO MODERATE PAIN LEVEL 4-6; Start 12/02/18 at 13:00 Acetaminophen/ Hydrocodone Bitart ([place] (5/325)) 1 tab Q4H PRN PO MODERATE PAIN LEVEL 4-6; Start 12/02/18 at 13:30 Pantoprazole (Protonix Tab) 40 mg BID@0600,1800 PO Last administered on 12/05/18at 06:00; Admin Dose 40 MG; Start 12/02/18 at 18:00 Sucralfate (Carafate Susp) 1 gm QID PO Last administered on 12/05/18at 14:16; Admin Dose 1 GM; Start 12/02/18 at 17:00 Warfarin Sodium (Coumadin) 4 mg DAILY@17 PO ; Start 12/05/18 at 17:00 Copies To: CC: ELIAS HIRSCH MD ; MARCIN RODRIGUEZ 12/06/18 1311: Assessment/Plan VTE Prophylaxis SCD applied (from Ns): Yes Pharmacological prophylaxis: warfarin tx Assessment/Plan Hospital Course Assessment/Plan Assessment: Acute on chronic epigastric pain- improved -CT abd/pelvis without contrast 11/30- No evidence of urolithiasis, obstructive uropathy or diverticulitis. Nonvisualization appendix. Nodular contour liver compatible with cirrhosis. Varices with ascites - rule out portal hypertension. Patency of the portal vein is indeterminate on this noncontrast study. Cardiomegaly. Liver cirrhosis-with ascites -Status post paracentesis 11/28/2018- Approximately 10 liters of clear yellow fluid was obtained -NEAL- positive 1:40 speckled -ASMA/AMA- negative Renal insufficiency Pulmonary hypertension- pt on Sildenafil Heart failure Atrial fibrillation- on Coumadin History of bioprosthetic mitral valve Diabetes Hypertension Plan: EGD as an out-pt - pt will need cardiac/pulmonary clearance given history prior to EGD Continue Carafate 4 times daily and Protonix twice daily If recurrent or persistent ascites we would recommend TIPs procedure, however we do not do this at this facility. Diuretic therapy- on hold Patient Seen in collaboration with Dr. Hirsch Subjective: Patient denies any further epigastric pain Denies nausea or vomiting. Discussed need for EGD as outpatient. Tolerating diet. Continue current treatment plan. Exam PHYSICAL EXAMINATION: GENERAL: Alert & oriented x 3, in no acute distress SKIN: No lesions HEAD: Normocephalic, atraumatic, no tenderness. EYES: Pupils equal reactive to light and accommodation, no discharge. EARS/NOSE AND THROAT: Ears normal, nose normal. NECK: Supple, no masses, thyroid normal. CHEST: Inspection within normal limits. CARDIOVASCULAR: Heart: Regular rate and rhythm RESPIRATORY: Lungs clear to auscultation GASTROINTESTINAL AND LIVER: Abdomen: Soft, nontender, nondistended, mild ascites ascites, no guarding, no rebound tenderness, normoactive bowel sounds. Rectal: Deferred. EXTREMITIES: No cyanosis, clubbing or edema. Result Diagram: 12/04/18 0526 12/05/18 0524 JOY GILLETTE NP Dec 05, 2018 14:38 MARCIN RODRIGUEZ Dec 06, 2018 13:11
[2018-12-05] MEDS ORDERED: WARFARIN 2 MG TAB PO SCH (17:00)
[2018-12-05] MEDS: WARFARIN 2 MG TAB PO SCH (17:38)
[2018-12-05] MEDS: INSULIN GLARGINE [LANTus] (100 UNITS/ML) SYG SC SCH (21:52)
[2018-12-05] MEDS: ATORVASTATIN 10 MG TAB PO SCH (21:57)
[2018-12-06] VITALS (7 sets, daily range): BP systolic 97–108; BP diastolic 43–56; PULSE 55–80; RESP 16–19
[2018-12-06] MEDS: ACCU-CHEK XX SCH (02:00)
[2018-12-06] MEDS: ACETAMINOPHEN 325 MG TAB PO PRN ×2 (02:06→23:14)
[2018-12-06] MEDS: PANTOPRAZOLE (EC) 40 MG TAB PO SCH ×2 (05:57→17:34)
--- NOTE | 2018-12-06 08:53 | PN ---
DATE: 12/06/2018 SUBJECTIVE: The patient is stable, no events overnight. The patient did have an episode of hypotens ion overnight. It resolved. No other events noted. OBJECTIVE: VITAL SIGNS: Blood pressure is 104/56, respirations 16, pulse 65, temperature 97.6. HEENT: Head is normocephalic. NECK: Supple. HEART: Regular rate. LUNGS: Show diminished breath sounds at the base. ABDOMEN: Soft, nontender to palpation without rebound or guarding. EXTREMITIES: Negative for clubbing, cyanosis, no edema. DERMATOLOGIC: No rashes. MUSCULOSKELETAL: No joint effusion. NEUROLOGIC: No change in exam. MEDICATIONS: The patient's medications have been reviewed. LABORATORY DATA: Pending. ASSESSMENT AND PLAN: 1. Nonoliguric acute kidney injury on top of chronic kidney disease with previous baseline creatinin e around to 1.0 to 1.3 mg/dL. Etiology of acute kidney injury is secondary to hemodynamics. The pat ient's diuretics have been on hold as renal function declined in the previous 24 hours. Plan is to f [facility] renal panel today. If renal function further declines the patient will be started on IV fluids . 2. Alkalosis, likely due to diuretic therapy. Continue to monitor. 3. Mineral bone disorder, monitor calcium and phosphorus levels. 4. Anemia. Monitor hemoglobin and hematocrit levels. 5. Hypomagnesemia. Continue to monitor and replete as needed. 6. Decompensated cirrhosis. The patient with noted ascites, status post paracentesis. Continue cur rent medical management. Holding diuretic therapy due to worsening renal function. Follow up with [facility], pending possible EGD. 7. Diabetes. Continue current insulin regimen. 8. Acute on chronic heart failure. The patient appears near euvolemic on exam. Continue to monitor . 9. Atrial fibrillation. Continue medical management. 10. History of valvular replacement. Dictated By: JANINA SOTO DO NR/NTS Conf#: [id number] DID#: [id number] CC: KAREN VIERA MD; JULIO ARCHIBALD MD;*End*
[2018-12-06] MEDS: SILDENAFIL 20 MG TAB PO SCH ×3 (09:00→20:55)
[2018-12-06] MEDS: INSULIN ASPART [NOVOLOG] 3 ML PEN SC SCH ×4 (09:01→20:54)
[2018-12-06] MEDS: SUCRALFATE (100 MG/ML) 10ML CUP PO SCH ×4 (09:02→22:00)
[2018-12-06] MEDS: LORATADINE 10 MG TAB PO SCH (09:04)
[2018-12-06] MEDS: FERROUS SULFATE (EC) 325 MG TAB PO SCH (09:04)
--- NOTE | 2018-12-06 11:52 | PN ---
Date/Time of Note Date/Time of Note DATE: 12/06/18 TIME: 11:46 Assessment/Plan VTE Prophylaxis Risk score (from Nsg)>0 risk: 3 Pharmacological prophylaxis: warfarin tx Lines/Catheters IV Catheter Type (from Nrsg): Saline Lock Urinary Cath still in place: No Assessment/Plan Hospital Course Subjective no new complaints Objective Physical exam General: Patient is laying in bed and answers questions appropriately Mentation: Patient is alert and oriented 4, Head: Normocephalic atraumatic Eyes: EOMI, pupils reactive to light Neck: Supple, nontender, midline Respiratory: Clear to auscultation bilaterally Cardiovascular: regular rate, no obvious murmurs Gastrointestinal: nontender to palpation, bowel sounds heard. huge pannus, difficult to evaluate for ascites extremity : No edema Assessment/Plan Ascites secondary to liver cirrhosis -10 L taken out with paracentesis 11/28/18 - Diuretics on board, appreciate Nephro input -arrange O/p GI f/u Epigastric abdominal pain, resolved -after discussing with patient the risks involved with EGD and with her current cardiac issues and risks involved, due to patient's resolution of abdominal pain with current medications, she wanted to differ the procedure for outpatient when she is more stable. -PPI twice daily and Carafate for now -CT of the abdomen pelvis was done 2 days ago, no acute issues to explain abdominal pain Acute renal insufficiency -continues on bumex bid and aldactone -neohro following -cr slightly improved today Uncontrolled diabetes- improved - A1c send out - Continue insulin dosages and will adjust as needed for better glucose control - ISS and accuchecks Compensated heart failure - continue current medications but holding LES inhibitor, will restart when renal function continues to improve Afib - rate controlled - on Warfarin, goal is a 2-3 Mitral Valve replacement - on Warfarin -On record, patient has bioprosthetic valve, INR goal will still be 2-3 for A. fib, pulmonary HTN -severe, on sildenafil Disposition -patient's Cr is improved, observe inhouse till closer to baseline, possible d/c tomorrow Result Diagram: 12/06/18 0735 12/06/18 0735 Results 24hrs Laboratory Tests Test 12/05/18 12:22 12/05/18 17:36 12/05/18 21:48 12/06/18 02:06 Bedside Glucose 161 145 182 157 Test 12/06/18 07:35 12/06/18 08:59 White Blood Count 4.2 L Red Blood Count 3.98 L Hemoglobin 11.1 L Hematocrit 34.6 L Mean Corpuscular 86.9 Volume Mean Corpuscular 27.9 L Hemoglobin Mean Corpuscular 32.1 Hemoglobin Concent Red Cell Distribution 16.1 H Width Platelet Count 213 Mean Platelet Volume 10.6 H Immature Granulocytes 0.200 % Neutrophils % 53.4 Lymphocytes % 28.2 Monocytes % 13.4 H Eosinophils % 3.8 Basophils % 1.0 Nucleated Red Blood 0.0 Cells % Immature Granulocytes 0.010 # Neutrophils # 2.2 Lymphocytes # 1.2 Monocytes # 0.6 Eosinophils # 0.2 Basophils # 0.0 Nucleated Red Blood 0.0 Cells # Prothrombin Time 27.2 H Prothrombin Time 2.1 Ratio INR International 2.52 Normalized Ratio Sodium Level 138 Potassium Level 3.9 Chloride Level 94 L Carbon Dioxide Level 32 H Anion Gap 12 Blood Urea Nitrogen 78 H Creatinine 1.46 H Est Glomerular 37 L Filtrat Rate mL/min Glucose Level 164 Calcium Level 9.9 Phosphorus Level 4.5 Magnesium Level 2.3 Bedside Glucose 160 Exam/Review of Systems Exam Vitals Vital Signs Date Temp Pulse Resp B/P (MAP) Pulse Ox O2 O2 Flow FiO2 Time Delivery Rate 12/06/18 97.4 61 17 99/49 (66) 95 08:19 12/05/18 Room Air 02:00 Intake and Output 12/05/18 12/05/18 12/06/18 1515:00 23:00 07:00 IntakeIntake Total 1700 ml BalanceBalance 1700 ml Results Results 24hrs Laboratory Tests Test 12/05/18 12:22 12/05/18 17:36 12/05/18 21:48 12/06/18 02:06 Bedside Glucose 161 145 182 157 Test 12/06/18 07:35 12/06/18 08:59 White Blood Count 4.2 L Red Blood Count 3.98 L Hemoglobin 11.1 L Hematocrit 34.6 L Mean Corpuscular 86.9 Volume Mean Corpuscular 27.9 L Hemoglobin Mean Corpuscular 32.1 Hemoglobin Concent Red Cell Distribution 16.1 H Width Platelet Count 213 Mean Platelet Volume 10.6 H Immature Granulocytes 0.200 % Neutrophils % 53.4 Lymphocytes % 28.2 Monocytes % 13.4 H Eosinophils % 3.8 Basophils % 1.0 Nucleated Red Blood 0.0 Cells % Immature Granulocytes 0.010 # Neutrophils # 2.2 Lymphocytes # 1.2 Monocytes # 0.6 Eosinophils # 0.2 Basophils # 0.0 Nucleated Red Blood 0.0 Cells # Prothrombin Time 27.2 H Prothrombin Time 2.1 Ratio INR International 2.52 Normalized Ratio Sodium Level 138 Potassium Level 3.9 Chloride Level 94 L Carbon Dioxide Level 32 H Anion Gap 12 Blood Urea Nitrogen 78 H Creatinine 1.46 H Est Glomerular 37 L Filtrat Rate mL/min Glucose Level 164 Calcium Level 9.9 Phosphorus Level 4.5 Magnesium Level 2.3 Bedside Glucose 160 Medications Medication Current Medications IV Flush (NS 3 ml) 3 ml PER PROTOCOL IV ; Start 11/27/18 at 00:30 Ondansetron HCl (Zofran Inj) 4 mg Q6H PRN IV NAUSEA/VOMITING; Start 11/27/18 at 00:30 Acetaminophen (Tylenol Tab) 650 mg Q6H PRN PO .PAIN 1-3 OR TEMP Last administered on 12/06/18 02:06; Admin Dose 650 MG; Start 11/27/18 at 00:30 Bumetanide (Bumex) 1 mg BID DIURETICS PO Last administered on 12/05/18 06:00; Admin Dose 1 MG; Start 11/27/18 at 06:00; Status Hold Digoxin (Digoxin) 0.125 mg DAILY@1300 PO Last administered on 12/05/18 14:19; Admin Dose 0.125 MG; Start 11/27/18 at 13:00 Ferrous Sulfate (Ferrous Sulfate (Ec)) 325 mg DAILY PO Last administered on 12/06/18 09:04; Admin Dose 325 MG; Start 11/27/18 at 09:00 Insulin Glargine (Lantus) 10 units QHS SC Last administered on 12/05/18 21:52; Admin Dose 10 UNITS; Start 11/27/18 at 21:00 Loratadine (Claritin) 10 mg DAILY PO Last administered on 12/06/18 09:04; Admin Dose 10 MG; Start 11/27/18 at 09:00 Atorvastatin Calcium (Lipitor) 10 mg DAILY@21 PO Last administered on 12/05/18 21:57; Admin Dose 10 MG; Start 11/27/18 at 21:00 Miscellaneous Information 1 ea NOTE XX ; Start 11/27/18 at 01:00 Glucose (Glutose) 15 gm Q15M PRN PO DECREASED GLUCOSE; Start 11/27/18 at 01:00 Glucose (Glutose) 22.5 gm Q15M PRN PO DECREASED GLUCOSE; Start 11/27/18 at 01:00 Dextrose (D50w Syringe) 25 ml Q15M PRN IV DECREASED GLUCOSE; Start 11/27/18 at 01:00 Dextrose (D50w Syringe) 50 ml Q15M PRN IV DECREASED GLUCOSE; Start 11/27/18 at 01:00 Glucagon (Glucagen) 1 mg Q15M PRN IM DECREASED GLUCOSE; Start 11/27/18 at 01:00 Glucose (Glutose) 15 gm Q15M PRN BUCCAL DECREASED GLUCOSE; Start 11/27/18 at 01:00 Miscellaneous Information Patients own medicat... BID@10,16 XX ; Start 11/27/18 at 10:00 Diagnostic Test (Pha) (Accu-Chek) 1 ea 02 XX Last administered on 12/04/18at 02:36; Admin Dose 1 EA; Start 11/28/18 at 02:00 Insulin Aspart (Novolog Insulin Pen) NOVOLOG *MODERATE* ALGORITHM WITH MEALS BEDTIME SC Last administered on 12/06/18at 09:01; Admin Dose 2 UNIT; Start 11/28/18 at 18:05 Spironolactone (Aldactone) 25 mg BID PO Last administered on 12/04/18at 08:38; Admin Dose 25 MG; Start 11/29/18 at 21:00; Status Hold Carvedilol (Coreg) 3.125 mg BID PO Last administered on 12/04/18at 08:40; Admin Dose 3.125 MG; Start 11/30/18 at 21:00 Lisinopril (Zestril) 2.5 mg DAILY PO Last administered on 12/04/18at 08:40; Admin Dose 2.5 MG; Start 12/01/18 at 09:00; Status Hold Sildenafil Citrate (Revatio) 10 mg TID PO Last administered on 12/05/18at 14:16; Admin Dose 10 MG; Start 12/02/18 at 21:00 Tramadol HCl (Ultram) 50 mg Q6H PRN PO MODERATE PAIN LEVEL 4-6; Start 12/02/18 at 13:00 Acetaminophen/ Hydrocodone Bitart ([place] (5/325)) 1 tab Q4H PRN PO MODERATE PAIN LEVEL 4-6; Start 12/02/18 at 13:30 Pantoprazole (Protonix Tab) 40 mg BID@0600,1800 PO Last administered on 12/06/18at 05:57; Admin Dose 40 MG; Start 12/02/18 at 18:00 Sucralfate (Carafate Susp) 1 gm QID PO Last administered on 12/06/18at 09:02; Admin Dose 1 GM; Start 12/02/18 at 17:00 Warfarin Sodium (Coumadin) 4 mg DAILY@17 PO Last administered on 12/05/18at 17:38; Admin Dose 4 MG; Start 12/05/18 at 17:00 ALFONZO BISHOP Dec 06, 2018 11:51
[2018-12-06] MEDS: LINAGLIPTIN 5 MG TABLET PO SCH (12:35)
[2018-12-06] MEDS: DIGOXIN 0.125 MG TAB PO SCH (12:35)
--- NOTE | 2018-12-06 13:22 | CONS ---
Assessment/Plan Assessment/Plan Assessment/Plan (Daily) Preoperative cardiac risk stratification Acute decompensated left ventricular and right ventricular systolic failure- improved Cardia myopathy left ventricular ejection fraction 45% RV dysfunction Severe pulmonary hypertension Atrial fibrillation History of bioprosthetic mitral valve Diabetes Hypertension -Patient presented with volume overload and decompensated congestive heart failure. She is improved with diuretics and paracentesis. -Patient undergoing GI work-up and plan for endoscopy. She currently appears compensated with no significant congestion on lung examination, patient without dyspnea and not requiring oxygen supplementation. -ECG with no significant changes compared to August 2018. -Patient has multiple risk factors for sedation including congestive heart failure, pulmonary hypertension. As long as patient remains well compensated from a CHF standpoint, patient will be at intermediate to high risk for any untoward cardiac events for low risk endoscopy procedure. At the current time, patient appears optimized. Consultation Date/Type/Reason Admit Date/Time November 26, 2018 at 22:46 Initial Consult Date 12/02/18 Type of Consult Cardiology Requesting Provider: KAREN VIERA Date/Time of Note DATE: 12/06/18 TIME: 13:21 24 HR Interval Summary Free Text/Dictation The patient with no complaints Exam/Review of Systems Vital Signs Vitals Vital Signs Date Temp Pulse Resp B/P (MAP) Pulse Ox O2 O2 Flow FiO2 Time Delivery Rate 12/06/18 97.4 61 17 99/49 (66) 95 08:19 12/05/18 Room Air 02:00 Intake and Output 12/05/18 12/05/18 12/06/18 1515:00 23:00 07:00 IntakeIntake Total 1700 ml BalanceBalance 1700 ml Labs Result Diagram: 12/06/18 0735 12/06/18 0735 Results 24hrs Laboratory Tests Test 12/05/18 17:36 12/05/18 21:48 12/06/18 02:06 12/06/18 07:35 Bedside Glucose 145 182 157 White Blood Count 4.2 L Red Blood Count 3.98 L Hemoglobin 11.1 L Hematocrit 34.6 L Mean Corpuscular 86.9 Volume Mean Corpuscular 27.9 L Hemoglobin Mean Corpuscular 32.1 Hemoglobin Concent Red Cell 16.1 H Distribution Width Platelet Count 213 Mean Platelet Volume 10.6 H Immature 0.200 Granulocytes % Neutrophils % 53.4 Lymphocytes % 28.2 Monocytes % 13.4 H Eosinophils % 3.8 Basophils % 1.0 Nucleated Red Blood 0.0 Cells % Immature 0.010 Granulocytes # Neutrophils # 2.2 Lymphocytes # 1.2 Monocytes # 0.6 Eosinophils # 0.2 Basophils # 0.0 Nucleated Red Blood 0.0 Cells # Prothrombin Time 27.2 H Prothrombin Time 2.1 Ratio INR International 2.52 Normalized Ratio Sodium Level 138 Potassium Level 3.9 Chloride Level 94 L Carbon Dioxide Level 32 H Anion Gap 12 Blood Urea Nitrogen 78 H Creatinine 1.46 H Est Glomerular 37 L Filtrat Rate mL/min Glucose Level 164 Calcium Level 9.9 Phosphorus Level 4.5 Magnesium Level 2.3 Test 12/06/18 08:59 12/06/18 12:25 Bedside Glucose 160 222 H Medications Medications Current Medications IV Flush (NS 3 ml) 3 ml PER PROTOCOL IV ; Start 11/27/18 at 00:30 Ondansetron HCl (Zofran Inj) 4 mg Q6H PRN IV NAUSEA/VOMITING; Start 11/27/18 at 00:30 Acetaminophen (Tylenol Tab) 650 mg Q6H PRN PO .PAIN 1-3 OR TEMP Last administered on 12/06/18at 02:06; Admin Dose 650 MG; Start 11/27/18 at 00:30 Bumetanide (Bumex) 1 mg BID DIURETICS PO Last administered on 12/05/18at 06:00; Admin Dose 1 MG; Start 11/27/18 at 06:00; Status Hold Digoxin (Digoxin) 0.125 mg DAILY@1300 PO Last administered on 12/06/18at 12:35; Admin Dose 0.125 MG; Start 11/27/18 at 13:00 Ferrous Sulfate (Ferrous Sulfate (Ec)) 325 mg DAILY PO Last administered on 12/06/18at 09:04; Admin Dose 325 MG; Start 11/27/18 at 09:00 Loratadine (Claritin) 10 mg DAILY PO Last administered on 12/06/18at 09:04; Admin Dose 10 MG; Start 11/27/18 at 09:00 Atorvastatin Calcium (Lipitor) 10 mg DAILY@21 PO Last administered on 12/05/18at 21:57; Admin Dose 10 MG; Start 11/27/18 at 21:00 Miscellaneous Information 1 ea NOTE XX ; Start 11/27/18 at 01:00 Glucose (Glutose) 15 gm Q15M PRN PO DECREASED GLUCOSE; Start 11/27/18 at 01:00 Glucose (Glutose) 22.5 gm Q15M PRN PO DECREASED GLUCOSE; Start 11/27/18 at 01:00 Dextrose (D50w Syringe) 25 ml Q15M PRN IV DECREASED GLUCOSE; Start 11/27/18 at 01:00 Dextrose (D50w Syringe) 50 ml Q15M PRN IV DECREASED GLUCOSE; Start 11/27/18 at 01:00 Glucagon (Glucagen) 1 mg Q15M PRN IM DECREASED GLUCOSE; Start 11/27/18 at 01:00 Glucose (Glutose) 15 gm Q15M PRN BUCCAL DECREASED GLUCOSE; Start 11/27/18 at 01:00 Miscellaneous Information Patients own medicat... BID@10,16 XX ; Start 11/27/18 at 10:00 Diagnostic Test (Pha) (Accu-Chek) 1 ea 02 XX Last administered on 12/04/18at 02:36; Admin Dose 1 EA; Start 11/28/18 at 02:00 Insulin Aspart (Novolog Insulin Pen) NOVOLOG *MODERATE* ALGORITHM WITH MEALS BEDTIME SC Last administered on 12/06/18at 12:28; Admin Dose 6 UNIT; Start 11/28/18 at 18:05 Spironolactone (Aldactone) 25 mg BID PO Last administered on 12/04/18at 08:38; Admin Dose 25 MG; Start 11/29/18 at 21:00; Status Hold Carvedilol (Coreg) 3.125 mg BID PO Last administered on 12/04/18at 08:40; Admin Dose 3.125 MG; Start 11/30/18 at 21:00 Lisinopril (Zestril) 2.5 mg DAILY PO Last administered on 12/04/18at 08:40; Admin Dose 2.5 MG; Start 12/01/18 at 09:00; Status Hold Sildenafil Citrate (Revatio) 10 mg TID PO Last administered on 12/05/18at 14:16; Admin Dose 10 MG; Start 12/02/18 at 21:00 Tramadol HCl (Ultram) 50 mg Q6H PRN PO MODERATE PAIN LEVEL 4-6; Start 12/02/18 at 13:00 Acetaminophen/ Hydrocodone Bitart ([place] (5/325)) 1 tab Q4H PRN PO MODERATE PAIN LEVEL 4-6; Start 12/02/18 at 13:30 Pantoprazole (Protonix Tab) 40 mg BID@0600,1800 PO Last administered on 12/06/18at 05:57; Admin Dose 40 MG; Start 12/02/18 at 18:00 Sucralfate (Carafate Susp) 1 gm QID PO Last administered on 12/06/18at 12:35; Admin Dose 1 GM; Start 12/02/18 at 17:00 Warfarin Sodium (Coumadin) 4 mg DAILY@17 PO Last administered on 12/05/18at 17:3 8; Admin Dose 4 MG; Start 12/05/18 at 17:00 Insulin Glargine (Lantus) 20 units QHS SC ; Start 12/06/18 at 21:00 Linagliptin (Tradjenta) 5 mg DAILY PO Last administered on 12/06/18at 12:35; Admin Dose 5 MG; Start 12/06/18 at 12:30 Insulin Glargine (Lantus) 10 units ONCE ONCE SC ; Start 12/06/18 at 13:30; Stop 12/06/18 at 13:31 NOMI BARTH MD Dec 06, 2018 13:22
[2018-12-06] MEDS ORDERED: INSULIN GLARGINE [LANTus] (100 UNITS/ML) SYG SC ONE (13:30)
[2018-12-06] MEDS: WARFARIN 2 MG TAB PO SCH (17:34)
[2018-12-06] MEDS: ATORVASTATIN 10 MG TAB PO SCH (20:50)
[2018-12-06] MEDS: INSULIN GLARGINE [LANTus] (100 UNITS/ML) SYG SC SCH (20:53)
[2018-12-07] MEDS: ACCU-CHEK XX SCH (02:00)
[2018-12-07 02:26] VITALS: BP 114/68; PULSE 52; RESP 16
[2018-12-07] MEDS: PANTOPRAZOLE (EC) 40 MG TAB PO SCH ×2 (06:36→18:58)
[2018-12-07 07:58] VITALS: BP 102/52; PULSE 55; RESP 18
[2018-12-07] MEDS: INSULIN ASPART [NOVOLOG] 3 ML PEN SC SCH ×4 (08:00→21:15)
--- NOTE | 2018-12-07 08:31 | PN ---
DATE: 12/07/2018 SUBJECTIVE: The patient is stable. No events overnight. OBJECTIVE: VITAL SIGNS: Blood pressure is 114/68, respirations 16, pulse 72, temperature 97.7. HEENT: Head is normocephalic. NECK: Supple. HEART: Regular rate. LUNGS: Show diminished breath sounds at the base. ABDOMEN: Soft, nontender to palpation without rebound or guarding. EXTREMITIES: Negative for clubbing, cyanosis, no edema. DERMATOLOGIC: No rashes. MUSCULOSKELETAL: No joint effusion. NEUROLOGIC: No change in exam. MEDICATIONS: The patient's medications have been reviewed. LABORATORY DATA: Has been reviewed. IMAGING STUDIES: Have been reviewed. ASSESSMENT AND PLAN: 1. Nonoliguric acute kidney injury on top of chronic kidney disease with previous baseline creatinin e 1.0 to 1.3 mg/dL. Etiology of acute kidney injury is secondary to hemodynamics. Renal function martins s improved after holding diuretic therapy. We will continue to monitor. Continue to renally dose al l meds. 2. Alkalosis, likely due to diuretic therapy, improving. Continue to monitor. 3. Mineral bone disorder, monitor calcium and phosphorus levels. 4. Anemia. Monitor hemoglobin and hematocrit levels. 5. Hypomagnesemia. Continue to monitor and replete as needed. 6. Decompensated cirrhosis. The patient is status post paracentesis. Continue to monitor. Follow up with GI, pending possible EGD. 7. Diabetes. Continue current insulin regimen. 8. Acute on chronic diastolic heart failure. Continue to monitor. Follow up with cardiology. 9. Atrial fibrillation. Continue medical management. 10. History of valvular replacement. Dictated By: JANINA SOTO DO NR/NTS Conf#: [id number] DID#: [id number] CC: KAREN VIERA MD; JULIO ARCHIBALD MD;*EndCC*
[2018-12-07] MEDS: SUCRALFATE (100 MG/ML) 10ML CUP PO SCH ×4 (10:34→21:03)
[2018-12-07] MEDS: SILDENAFIL 20 MG TAB PO SCH ×3 (10:35→21:02)
[2018-12-07] MEDS: FERROUS SULFATE (EC) 325 MG TAB PO SCH (10:35)
[2018-12-07] MEDS: LORATADINE 10 MG TAB PO SCH (10:35)
[2018-12-07] MEDS: LINAGLIPTIN 5 MG TABLET PO SCH (10:35)
[2018-12-07 12:45] VITALS: BP 100/53; PULSE 57; RESP 16
[2018-12-07 13:29] VITALS: BP 115/58; PULSE 83; RESP 16
[2018-12-07] MEDS: DIGOXIN 0.125 MG TAB PO SCH (13:32)
[2018-12-07] MEDS ORDERED: COU2 PO (13:39)
[2018-12-07] MEDS ORDERED: CARAS PO (13:39)
[2018-12-07] MEDS ORDERED: SPIR25TA PO (13:39)
[2018-12-07] MEDS ORDERED: CARV3.1260 PO (13:39)
[2018-12-07] MEDS ORDERED: PANT40TA4 PO (13:39)
[2018-12-07] MEDS ORDERED: SILD20TA13 PO (13:39)
--- NOTE | 2018-12-07 13:56 | PDOCDIS ---
Discharge Instructions CONDITION [id number] Patient Condition: [id number] Stable HOME CARE INSTRUCTIONS: [id number] Diet Instructions: [id number] Low Fat /Cholesterol FOLLOW UP/APPOINTMENTS Follow-up Plan * Call your Coumadin clinic and set up an appointment in the next 1 to 2 days * Also follow-up with your primary care doctor in the next 1 to 2 weeks. * We have put in motion and outpatient referral for you to a senior software manager, your insurance company should be contacting you with an authorization. When you received the authorization, please call to make an appointment for management of your liver cirrhosis. * Llame a gold clnica Coumadin y establezca tay michael en los prximos 1 a 2 ledbetter * Tambin realice un seguimiento con gold mdico de atencin primaria en las prximas 1 a 2 semanas. * Hemos puesto en movimiento y derivacin ambulatoria para usted a un gastroenterlogo, gold compaa de seguros debe estar en contacto con usted con tay autorizacin. Cuando usted recibi la autorizacin, por favor llame para hacer tay michael para el manejo de gold cirrosis heptica ALFONZO BISHOP Dec 07, 2018 13:56
--- NOTE | 2018-12-07 15:09 | PN ---
Date/Time of Note Date/Time of Note DATE: 12/07/18 TIME: 15:07 Assessment/Plan VTE Prophylaxis Risk score (from Ns)>0 risk: 3 SCD applied (from Ns): No SCD contraindicated: other (scds) Pharmacological prophylaxis: NA/contraindicated Pharm contraindication: liver dx Lines/Catheters IV [facility] [facility] Urinary Cath still in place: No Assessment/Plan Hospital Course Assessment/Plan Assessment: Acute on chronic epigastric pain- improved -CT abd/pelvis without contrast 11/30- No evidence of urolithiasis, obstructive uropathy or diverticulitis. Nonvisualization appendix. Nodular contour liver compatible with cirrhosis. Varices with ascites - rule out portal hypertension. Patency of the portal vein is indeterminate on this noncontrast study. Cardiomegaly. Liver cirrhosis-with ascites -Status post paracentesis 11/28/2018- Approximately 10 liters of clear yellow fluid was obtained -NEAL- positive 1:40 speckled -ASMA/AMA- negative Renal insufficiency Pulmonary hypertension- pt on Sildenafil Heart failure Atrial fibrillation- on Coumadin History of bioprosthetic mitral valve Diabetes Hypertension Plan: EGD as an out-pt - pt will need cardiac/pulmonary clearance given history prior to EGD Continue Carafate 4 times daily and Protonix twice daily If recurrent or persistent ascites we would recommend TIPs procedure, however we do not do this at this facility. Pt to f/u with GI after discharge- pt appears stable for out-pt management from GI point of view Patient Seen in collaboration with Dr. Hirsch Subjective: Patient denies any further epigastric pain No over night events. patient feels well. No c/o n/v or overt signs of GI bleed Exam PHYSICAL EXAMINATION: GENERAL: Alert & oriented x 3, in no acute distress SKIN: No lesions HEAD: Normocephalic, atraumatic, no tenderness. EYES: Pupils equal reactive to light and accommodation, no discharge. EARS/NOSE AND THROAT: Ears normal, nose normal. NECK: Supple, no masses, thyroid normal. CHEST: Inspection within normal limits. CARDIOVASCULAR: Heart: Regular rate and rhythm RESPIRATORY: Lungs clear to auscultation GASTROINTESTINAL AND LIVER: Abdomen: Soft, nontender, nondistended, mild ascites ascites, no guarding, no rebound tenderness, normoactive bowel sounds. Rectal: Deferred. EXTREMITIES: No cyanosis, clubbing or edema. Result Diagram: 12/06/18 0735 12/07/18 0516 Results 24hrs Laboratory Tests Test 12/06/18 17:33 12/06/18 20:47 12/07/18 02:04 12/07/18 05:16 Bedside Glucose 173 226 H 141 Prothrombin Time 28.9 H Prothrombin Time 2.3 Ratio INR International 2.72 Normalized Ratio Sodium Level 140 Potassium Level 3.8 Chloride Level 97 Carbon Dioxide Level 33 H Anion Gap 10 Blood Urea Nitrogen 71 H Creatinine 1.23 H Est Glomerular 46 L Filtrat Rate mL/min Glucose Level 125 Calcium Level 9.8 Phosphorus Level 3.9 Magnesium Level 2.5 Test 12/07/18 08:25 12/07/18 12:34 Bedside Glucose 132 195 Exam/Review of Systems Exam Vitals Vital Signs Date Temp Pulse Resp B/P (MAP) Pulse Ox O2 O2 Flow FiO2 Time Delivery Rate 12/07/18 97.4 83 16 115/58 99 Room Air 13:29 (77) Intake and Output 12/06/18 12/06/18 12/07/18 1515:00 23:00 07:00 IntakeIntake Total 480 ml 240 ml BalanceBalance 480 ml 240 ml Results Results 24hrs Laboratory Tests Test 12/06/18 17:33 12/06/18 20:47 12/07/18 02:04 12/07/18 05:16 Bedside Glucose 173 226 H 141 Prothrombin Time 28.9 H Prothrombin Time 2.3 Ratio INR International 2.72 Normalized Ratio Sodium Level 140 Potassium Level 3.8 Chloride Level 97 Carbon Dioxide Level 33 H Anion Gap 10 Blood Urea Nitrogen 71 H Creatinine 1.23 H Est Glomerular 46 L Filtrat Rate mL/min Glucose Level 125 Calcium Level 9.8 Phosphorus Level 3.9 Magnesium Level 2.5 Test 12/07/18 08:25 12/07/18 12:34 Bedside Glucose 132 195 Medications Medication Current Medications IV Flush (NS 3 ml) 3 ml PER PROTOCOL IV ; Start 11/27/18 at 00:30 Ondansetron HCl (Zofran Inj) 4 mg Q6H PRN IV NAUSEA/VOMITING; Start 11/27/18 at 00:30 Acetaminophen (Tylenol Tab) 650 mg Q6H PRN PO .PAIN 1-3 OR TEMP Last administered on 12/06/18at 23:14; Admin Dose 650 MG; Start 11/27/18 at 00:30 Bumetanide (Bumex) 1 mg BID DIURETICS PO Last administered on 12/05/18at 06:00; Admin Dose 1 MG; Start 11/27/18 at 06:00; Status Hold Digoxin (Digoxin) 0.125 mg DAILY@1300 PO Last administered on 12/07/18at 13:32; Admin Dose 0.125 MG; Start 11/27/18 at 13:00 Ferrous Sulfate (Ferrous Sulfate (Ec)) 325 mg DAILY PO Last administered on 12/07/18at 10:35; Admin Dose 325 MG; Start 11/27/18 at 09:00 Loratadine (Claritin) 10 mg DAILY PO Last administered on 12/07/18at 10:35; Admin Dose 10 MG; Start 11/27/18 at 09:00 Atorvastatin Calcium (Lipitor) 10 mg DAILY@21 PO Last administered on 12/06/18at 20:50; Admin Dose 10 MG; Start 11/27/18 at 21:00 Miscellaneous Information 1 ea NOTE XX ; Start 11/27/18 at 01:00 Glucose (Glutose) 15 gm Q15M PRN PO DECREASED GLUCOSE; Start 11/27/18 at 01:00 Glucose (Glutose) 22.5 gm Q15M PRN PO DECREASED GLUCOSE; Start 11/27/18 at 01:00 Dextrose (D50w Syringe) 25 ml Q15M PRN IV DECREASED GLUCOSE; Start 11/27/18 at 01:00 Dextrose (D50w Syringe) 50 ml Q15M PRN IV DECREASED GLUCOSE; Start 11/27/18 at 01:00 Glucagon (Glucagen) 1 mg Q15M PRN IM DECREASED GLUCOSE; Start 11/27/18 at 01:00 Glucose (Glutose) 15 gm Q15M PRN BUCCAL DECREASED GLUCOSE; Start 11/27/18 at 01:00 Miscellaneous Information Patients own medicat... BID@10,16 XX ; Start 11/27/18 at 10:00 Diagnostic Test (Pha) (Accu-Chek) 1 ea 02 XX Last administered on 12/04/18at 02:36; Admin Dose 1 EA; Start 11/28/18 at 02:00 Insulin Aspart (Novolog Insulin Pen) NOVOLOG *MODERATE* ALGORITHM WITH MEALS BEDTIME SC Last administered on 12/07/18 12:37; Admin Dose 4 UNIT; Start 11/28/18 at 18:05 Spironolactone (Aldactone) 25 mg BID PO Last administered on 12/04/18 08:38; Admin Dose 25 MG; Start 11/29/18 at 21:00; Status Hold Carvedilol (Coreg) 3.125 mg BID PO Last administered on 12/04/18 08:40; Admin Dose 3.125 MG; Start 11/30/18 at 21:00 Lisinopril (Zestril) 2.5 mg DAILY PO Last administered on 12/04/18 08:40; Admin Dose 2.5 MG; Start 12/01/18 at 09:00; Status Hold Sildenafil Citrate (Revatio) 10 mg TID PO Last administered on 12/07/18 13:33; Admin Dose 10 MG; Start 12/02/18 at 21:00 Tramadol HCl (Ultram) 50 mg Q6H PRN PO MODERATE PAIN LEVEL 4-6; Start 12/02/18 at 13:00 Acetaminophen/ Hydrocodone Bitart ([place] (5/325)) 1 tab Q4H PRN PO MODERATE PAIN LEVEL 4-6; Start 12/02/18 at 13:30 Pantoprazole (Protonix Tab) 40 mg BID@0600,1800 PO Last administered on 12/07/18 06:36; Admin Dose 40 MG; Start 12/02/18 at 18:00 Sucralfate (Carafate Susp) 1 gm QID PO Last administered on 12/07/18 13:32; Admin Dose 1 GM; Start 12/02/18 at 17:00 Warfarin Sodium (Coumadin) 4 mg DAILY@17 PO Last administered on 12/06/18 17:34; Admin Dose 4 MG; Start 12/05/18 at 17:00 Insulin Glargine (Lantus) 20 units QHS SC Last administered on 12/06/18 20:53; Admin Dose 20 UNITS; Start 12/06/18 at 21:00 Linagliptin (Tradjenta) 5 mg DAILY PO Last administered on 12/07/18 10:35; Admin Dose 5 MG; Start 12/06/18 at 12:30 MARCNI RODRIGUEZ Dec 07, 2018 15:09
--- NOTE | 2018-12-07 16:34 | CONS ---
Assessment/Plan Assessment/Plan Hospital Course (Demo Recall) Preoperative cardiac risk stratification Acute decompensated left ventricular and right ventricular systolic failure- improved Cardia myopathy left ventricular ejection fraction 45% RV dysfunction Severe pulmonary hypertension Atrial fibrillation History of bioprosthetic mitral valve Diabetes Hypertension Diuretics as per nephrology Given heart rate of lower side, would hold digoxin Coumadin as per INR Consultation Date/Type/Reason Admit Date/Time November 26, 2018 at 22:46 Initial Consult Date 12/02/18 Type of Consult Cardiology Requesting Provider: KAREN VIERA Date/Time of Note DATE: 12/07/18 TIME: 16:32 24 HR Interval Summary Free Text/Dictation Denies shortness of breath, palpitations Exam/Review of Systems Vital Signs Vitals Vital Signs Date Temp Pulse Resp B/P (MAP) Pulse Ox O2 O2 Flow FiO2 Time Delivery Rate 12/07/18 97.4 83 16 115/58 99 Room Air 13:29 (77) Intake and Output 12/06/18 12/06/18 12/07/18 1515:00 23:00 07:00 IntakeIntake Total 480 ml 240 ml BalanceBalance 480 ml 240 ml Exam Constitutional: alert, oriented (No apparent distress) Respiratory: other (Coarse breath sounds bilaterally, no wheezing) Cardiovascular: regular rate and rhythm (Intermittent irregularities), other (S1-S2 heard) Gastrointestinal: soft, non-tender, ascites, bowel sounds Extremities: edema Labs Result Diagram: 12/06/18 0735 12/07/18 0516 Results 24hrs Laboratory Tests Test 12/06/18 17:33 12/06/18 20:47 12/07/18 02:04 12/07/18 05:16 Bedside Glucose 173 226 H 141 Prothrombin Time 28.9 H Prothrombin Time 2.3 Ratio INR International 2.72 Normalized Ratio Sodium Level 140 Potassium Level 3.8 Chloride Level 97 Carbon Dioxide Level 33 H Anion Gap 10 Blood Urea Nitrogen 71 H Creatinine 1.23 H Est Glomerular 46 L Filtrat Rate mL/min Glucose Level 125 Calcium Level 9.8 Phosphorus Level 3.9 Magnesium Level 2.5 Test 12/07/18 08:25 12/07/18 12:34 Bedside Glucose 132 195 Medications Medications Current Medications IV Flush (NS 3 ml) 3 ml PER PROTOCOL IV ; Start 11/27/18 at 00:30 Ondansetron HCl (Zofran Inj) 4 mg Q6H PRN IV NAUSEA/VOMITING; Start 11/27/18 at 00:30 Acetaminophen (Tylenol Tab) 650 mg Q6H PRN PO .PAIN 1-3 OR TEMP Last administered on 12/06/18at 23:14; Admin Dose 650 MG; Start 11/27/18 at 00:30 Bumetanide (Bumex) 1 mg BID DIURETICS PO Last administered on 12/05/18at 06:00; Admin Dose 1 MG; Start 11/27/18 at 06:00; Status Hold Digoxin (Digoxin) 0.125 mg DAILY@1300 PO Last administered on 12/07/18at 13:32; Admin Dose 0.125 MG; Start 11/27/18 at 13:00 Ferrous Sulfate (Ferrous Sulfate (Ec)) 325 mg DAILY PO Last administered on 12/07/18at 10:35; Admin Dose 325 MG; Start 11/27/18 at 09:00 Loratadine (Claritin) 10 mg DAILY PO Last administered on 12/07/18at 10:35; Admin Dose 10 MG; Start 11/27/18 at 09:00 Atorvastatin Calcium (Lipitor) 10 mg DAILY@21 PO Last administered on 12/06/18at 20:50; Admin Dose 10 MG; Start 11/27/18 at 21:00 Miscellaneous Information 1 ea NOTE XX ; Start 11/27/18 at 01:00 Glucose (Glutose) 15 gm Q15M PRN PO DECREASED GLUCOSE; Start 11/27/18 at 01:00 Glucose (Glutose) 22.5 gm Q15M PRN PO DECREASED GLUCOSE; Start 11/27/18 at 01:00 Dextrose (D50w Syringe) 25 ml Q15M PRN IV DECREASED GLUCOSE; Start 11/27/18 at 01:00 Dextrose (D50w Syringe) 50 ml Q15M PRN IV DECREASED GLUCOSE; Start 11/27/18 at 01:00 Glucagon (Glucagen) 1 mg Q15M PRN IM DECREASED GLUCOSE; Start 11/27/18 at 01:00 Glucose (Glutose) 15 gm Q15M PRN BUCCAL DECREASED GLUCOSE; Start 11/27/18 at 01:00 Miscellaneous Information Patients own medicat... BID@10,16 XX ; Start 11/27/18 at 10:00 Diagnostic Test (Pha) (Accu-Chek) 1 ea 02 XX Last administered on 12/04/18 02:36; Admin Dose 1 EA; Start 11/28/18 at 02:00 Insulin Aspart (Novolog Insulin Pen) NOVOLOG *MODERATE* ALGORITHM WITH MEALS BEDTIME SC Last administered on 12/07/18 12:37; Admin Dose 4 UNIT; Start 11/28/18 at 18:05 Spironolactone (Aldactone) 25 mg BID PO Last administered on 12/04/18 08:38; Ad min Dose 25 MG; Start 11/29/18 at 21:00; Status Hold Carvedilol (Coreg) 3.125 mg BID PO Last administered on 12/04/18 08:40; Admin Dose 3.125 MG; Start 11/30/18 at 21:00 Lisinopril (Zestril) 2.5 mg DAILY PO Last administered on 12/04/18 08:40; Admin Dose 2.5 MG; Start 12/01/18 at 09:00; Status Hold Sildenafil Citrate (Revatio) 10 mg TID PO Last administered on 12/07/18 13:33; Admin Dose 10 MG; Start 12/02/18 at 21:00 Tramadol HCl (Ultram) 50 mg Q6H PRN PO MODERATE PAIN LEVEL 4-6; Start 12/02/18 at 13:00 Acetaminophen/ Hydrocodone Bitart ([place] (5/325)) 1 tab Q4H PRN PO MODERATE PAIN LEVEL 4-6; Start 12/02/18 at 13:30 Pantoprazole (Protonix Tab) 40 mg BID@0600,1800 PO Last administered on 12/07/18 06:36; Admin Dose 40 MG; Start 12/02/18 at 18:00 Sucralfate (Carafate Susp) 1 gm QID PO Last administered on 12/07/18 13:32; Admin Dose 1 GM; Start 12/02/18 at 17:00 Warfarin Sodium (Coumadin) 4 mg DAILY@17 PO Last administered on 12/06/18 17:34; Admin Dose 4 MG; Start 12/05/18 at 17:00 Insulin Glargine (Lantus) 20 units QHS SC Last administered on 12/06/18 20:53; Admin Dose 20 UNITS; Start 12/06/18 at 21:00 Linagliptin (Tradjenta) 5 mg DAILY PO Last administered on 12/07/18at 10:35; Admin Dose 5 MG; Start 12/06/18 at 12:30 Rodger Choi DO Dec 07, 2018 16:34
[2018-12-07] MEDS: WARFARIN 2 MG TAB PO SCH (18:58)
[2018-12-07 20:53] VITALS: BP 113/56; PULSE 81; RESP 16
[2018-12-07] MEDS: ATORVASTATIN 10 MG TAB PO SCH (21:02)
[2018-12-07] MEDS: INSULIN GLARGINE [LANTus] (100 UNITS/ML) SYG SC SCH (21:07)
[2018-12-08 02:00] VITALS: BP 110/53; PULSE 73; RESP 19
[2018-12-08] MEDS: ACCU-CHEK XX SCH (02:00)
[2018-12-08] MEDS: PANTOPRAZOLE (EC) 40 MG TAB PO SCH (05:48)
--- NOTE | 2018-12-08 06:37 | DS ---
Date/Time of Note Date/Time of Note DATE: 12/07/18 Discharge Summary Admission/Discharge Info Admit Date/Time November 26, 2018 at 22:46 Discharge Date/Time Discharge Diagnosis Assessment/Plan Ascites secondary to liver cirrhosis -10 L taken out with paracentesis 11/28/18 - Diuretics on board, appreciate Nephro input -arrange O/p GI f/u Epigastric abdominal pain, resolved -after discussing with patient the risks involved with EGD and with her current cardiac issues and risks involved, due to patient's resolution of abdominal pain with current medications, she wanted to differ the procedure for outpatient when she is more stable. -PPI twice daily and Carafate for now -CT of the abdomen pelvis was done 2 days ago, no acute issues to explain abdominal pain Acute renal insufficiency -continues on bumex bid and aldactone -neohro following -cr slightly improved today . Uncontrolled diabetes- improved - A1c send out - Continue insulin dosages and will adjust as needed for better glucose control - ISS and accuchecks Compensated heart failure - continue current medications but holding LES inhibitor, will restart when renal function continues to improve Afib - rate controlled - on Warfarin, goal is a 2-3 Mitral Valve replacement - on Warfarin -On record, patient has bioprosthetic valve, INR goal will still be 2-3 for A. fib, pulmonary HTN -severe, on sildenafil Disposition -patient's Cr is improved, observe inhouse till closer to baseline, possible d/c tomorrow Consults Cardiology: Jimbo Soares MD GI: Allan Hirsch MD, Sowmya Rogel NP Nephro: Roberto Metcalf DO . Hospital Course Home Meds Active Scripts Sucralfate* (Carafate*) 1 Gm/10 Ml Susp, 1 GM PO QID, #120 ML 1 Refill Prov:SHARATH BISHOPPaloma M. 12/07/18 Pantoprazole* (Pantoprazole*) 40 Mg Tablet., 40 MG PO BID@0600,1800, #60 TAB 1 Refill Prov:SHARATH BISHOPPaloma M. 12/07/18 Sildenafil Citrate* (Revatio*) 20 Mg Tab, 10 MG PO TID for 30 Days, #15 TAB Prov:DARIOALFONZO M. 12/07/18 Carvedilol* (Carvedilol*) 3.125 Mg Tablet, 3.125 MG PO BID, #60 TAB 2 Refills Prov:ALFONZO BISHOP. 12/07/18 Warfarin Sod (Coumadin) 2 Mg Tab, 4 MG PO DAILY@17 for 14 Days, #28 TAB Prov:ALFONZO BISHOP. 12/07/18 Spironolactone* (Aldactone*) 25 Mg Tablet, 25 MG PO BID, #60 TAB 2 Refills Prov:ALFONZO BISHOP. 12/07/18 Insulin Glargine,Hum.rec.anlog (Basaglar Kwikpen U-100) 100 Unit/1 Ml Insuln.pen, 20 UNIT SC QHS, #6 VIAL 1 Refill Prov:ALFONZO BISHOP. 09/16/18 Insulin Lispro (Humalog) 100 Unit/1 Ml Cartridge, 7 UNIT SQ WITH MEALS, #7 VIAL 2 Refills Prov:ALFONZO BISHOP. 09/16/18 Reported Medications Triamcinolone Acetonide* (Kenalog*) 0.1%-15GM Oint, 1 APPLIC TOP BID, #1 EA 09/13/18 Simvastatin* (Zocor*) 20 Mg Tablet, 20 MG PO QHS, #30 TAB 09/13/18 Loratadine* (Loratadine*) 10 Mg Tablet, 10 MG PO DAILY, #30 TAB 09/13/18 Sitagliptin* (Januvia*) 50 Mg Tablet, 50 MG PO DAILY, #30 TAB 09/13/18 Ferrous Sulfate* (Ferrous Sulfate*) 325 Mg Tabec, 325 MG PO DAILY, TAB 09/13/18 Digoxin* (Digitek*) 125 Mcg Tablet, 0.125 MG PO DAILY, TAB 09/13/18 Discontinued Reported Medications Warfarin Sodium* (Coumadin*) 6 Mg Tablet, 6 MG PO DAILY, TAB 09/13/18 Carvedilol* (Carvedilol*) 6.25 Mg Tablet, 6.25 MG PO BID, #60 TAB 09/13/18 Discontinued Scripts Bumetanide* (Bumetanide*) 1 Mg Tablet, 1 MG PO BID DIURETICS, #60 TAB Prov:BURT,ANCA VRocco LEARNING AND DEVELOPMENT OFFICER 09/22/18 Sildenafil Citrate* (Revatio*) 20 Mg Tab, 20 MG PO TID, #90 TAB Prov:BURT,ANCA V. LEARNING AND DEVELOPMENT OFFICER 09/22/18 Lisinopril* (Lisinopril*) 5 Mg Tablet, 2.5 MG PO DAILY, #30 TAB 2 Refills Prov:ALFONZO BISHOP. 09/16/18 Follow-up Plan * Call your Coumadin clinic and set up an appointment in the next 1 to 2 days * Also follow-up with your primary care doctor in the next 1 to 2 weeks. * We have put in motion and outpatient referral for you to a credit collector, your insurance company should be contacting you with an authorization. When you received the authorization, please call to make an appointment for management of your liver cirrhosis. * Llame a gold clnica Coumadin y establezca tay michael en los prximos 1 a 2 ledbetter * Tambin realice un seguimiento con gold mdico de atencin primaria en las prximas 1 a 2 semanas. * Hemos puesto en movimiento y derivacin ambulatoria para usted a un gastroenterlogo, gold compaa de seguros debe estar en contacto con usted con tay autorizacin. Cuando usted recibi la autorizacin, por favor llame para hacer tay michael para el manejo de gold cirrosis heptica Primary Care Provider [facility] Time spent on discharge: > 30 minutes Pending Labs Laboratory Tests Test 12/07/18 08:25 12/07/18 12:34 12/07/18 17:54 12/07/18 21:06 Bedside 132 195 143 233 Glucose mg/dL (70-220) mg/dL (70-220) mg/dL (70-220) mg/dL (70-220) Test 12/08/18 02:09 12/08/18 05:01 Bedside 176 Glucose mg/dL (70-220) Prothrombin 27.8 Time Sec (11.9-14.9 ) Prothrombin 2.2 Time Ratio INR 2.59 International Normalized Rati o Sodium Level 143 mmol/L (135-14 4) Potassium 4.1 Level mmol/L (3.5-5. 1) Chloride Level 99 mmol/L (97-110 ) Carbon Dioxide 30 Level mmol/L (21-31) Anion Gap 14 (5-13) Blood Urea 56 Nitrogen mg/dl (7-20) Creatinine 1.06 mg/dl (0.44-1. 00) Est Glomerular 54 Filtrat mL/min (>60) Rate mL/min Glucose Level 147 mg/dl (70-220) Calcium Level 9.5 mg/dl (8.4-10. 2) Phosphorus 3.7 Level mg/dl (2.5-4.9 ) Magnesium 2.4 Level mg/dl (1.7-2.5 ) ALFONZO BISHOP Dec 08, 2018 06:37
[2018-12-08 07:55] VITALS: BP 117/59; PULSE 74; RESP 18
[2018-12-08] MEDS: INSULIN ASPART [NOVOLOG] 3 ML PEN SC SCH ×2 (08:14→12:05)
[2018-12-08] MEDS: SUCRALFATE (100 MG/ML) 10ML CUP PO SCH ×2 (08:15→12:09)
[2018-12-08] MEDS: SILDENAFIL 20 MG TAB PO SCH ×2 (08:15→12:12)
[2018-12-08] MEDS: LORATADINE 10 MG TAB PO SCH (08:18)
[2018-12-08] MEDS: LINAGLIPTIN 5 MG TABLET PO SCH (08:18)
[2018-12-08] MEDS: FERROUS SULFATE (EC) 325 MG TAB PO SCH (08:18)
[2018-12-08] MEDS: SPIRONOLACTONE 25 MG TAB PO SCH (08:19)
--- NOTE | 2018-12-08 08:26 | PN ---
DATE: 12/08/2018 SUBJECTIVE: The patient is stable, no events overnight. No fevers, chills, nausea, vomiting. OBJECTIVE: VITAL SIGNS: Blood pressure is 117/79, respiration 18, pulse 74, temperature 98.0. HEENT: Head is normocephalic. NECK: Supple. HEART: Regular rate. LUNGS: Show diminished breath sounds at the base. ABDOMEN: Soft, nontender to palpation without rebound or guarding. EXTREMITIES: Negative for clubbing, cyanosis, no edema. DERMATOLOGIC: No rashes. MUSCULOSKELETAL: No joint effusion. NEUROLOGIC: No change in exam. MEDICATIONS: The patient's medications have been reviewed. LABORATORY DATA: Has been reviewed. ASSESSMENT AND PLAN: 1. Nonoliguric acute kidney injury on chronic kidney disease with previous baseline creatinine 1.0 t o 1.3 mg per deciliter. Etiology of HUA is secondary to hemodynamics. Renal function is back to bas ana. Will reintroduce Bumex 1 mg daily. Monitor renal function, electrolytes closely. 2. Alkalosis, likely due to iron therapy, improving. 3. Mineral bone disorder, monitor calcium and phosphorus levels. 4. Anemia. Monitor hemoglobin and hematocrit levels. 5. Hypomagnesemia. Continue to monitor and replete if needed. 6. Decompensated cirrhosis. The patient is status post paracentesis. Continue to monitor. Follow up with GI. 7. Diabetes. Continue current insulin regimen. 8. Acute on chronic diastolic heart failure. Continue current medical regimen. Continue diuretic t herapy. 9. Atrial fibrillation. Continue medical management. 10. History of valve replacement. Dictated By: JANINA SOTO DO NR/NTS Conf#: [id number] DID#: [id number] CC: KAREN VIERA MD; JULIO ARCHIBALD MD;*EndCC*
[2018-12-08] MEDS ORDERED: BUMETANIDE 1 MG TAB PO SCH (09:00)
[2018-12-08 12:14] VITALS: BP 108/63
--- NOTE | 2018-12-08 12:18 | CONS ---
Assessment/Plan Assessment/Plan Hospital Course (Demo Recall) Preoperative cardiac risk stratification Acute decompensated left ventricular and right ventricular systolic failure- improved Cardia myopathy left ventricular ejection fraction 45% RV dysfunction Severe pulmonary hypertension Atrial fibrillation History of bioprosthetic mitral valve Diabetes Hypertension Diuretics as per nephrology Heart rate trend overall remained stable, digoxin has been stopped Restart LES inhibitor when okay by nephrology Coumadin as per INR Consultation Date/Type/Reason Admit Date/Time November 26, 2018 at 22:46 Initial Consult Date 12/02/18 Type of Consult Cardiology Requesting Provider: KAREN VIERA Date/Time of Note DATE: 12/08/18 TIME: 12:16 24 HR Interval Summary Free Text/Dictation No shortness of breath, palpitations Exam/Review of Systems Vital Signs Vitals Vital Signs Date Temp Pulse Resp B/P (MAP) Pulse Ox O2 O2 Flow FiO2 Time Delivery Rate 12/08/18 98.0 74 18 117/59 95 07:55 (78) 12/07/18 Room Air 13:29 Intake and Output 12/07/18 12/07/18 12/08/18 1414:59 22:59 06:59 IntakeIntake Total 400 ml 200 ml 300 ml BalanceBalance 400 ml 200 ml 300 ml Exam Constitutional: alert, oriented Respiratory: other (Coarse breath sounds bilaterally, no wheezing) Cardiovascular: regular rate and rhythm (Occasional irregularities, S1-S2 heard) Gastrointestinal: soft, non-tender, bowel sounds Extremities: edema Labs Result Diagram: 12/06/18 0735 12/08/18 0501 Results 24hrs Laboratory Tests Test 12/07/18 12:34 12/07/18 17:54 12/07/18 21:06 12/08/18 02:09 Bedside Glucose 195 143 233 H 176 Test 12/08/18 05:01 12/08/18 08:07 Prothrombin Time 27.8 H Prothrombin Time 2.2 Ratio INR International 2.59 Normalized Ratio Sodium Level 143 Potassium Level 4.1 Chloride Level 99 Carbon Dioxide Level 30 Anion Gap 14 H Blood Urea Nitrogen 56 H Creatinine 1.06 H Est Glomerular 54 L Filtrat Rate mL/min Glucose Level 147 Calcium Level 9.5 Phosphorus Level 3.7 Magnesium Level 2.4 Digoxin Level 0.9 L Bedside Glucose 143 Medications Medications Current Medications IV Flush (NS 3 ml) 3 ml PER PROTOCOL IV ; Start 11/27/18 at 00:30 Ondansetron HCl (Zofran Inj) 4 mg Q6H PRN IV NAUSEA/VOMITING; Start 11/27/18 at 00:30 Acetaminophen (Tylenol Tab) 650 mg Q6H PRN PO .PAIN 1-3 OR TEMP Last administered on 12/06/18at 23:14; Admin Dose 650 MG; Start 11/27/18 at 00:30 Digoxin (Digoxin) 0.125 mg DAILY@1300 PO Last administered on 12/07/18at 13:32; Admin Dose 0.125 MG; Start 11/27/18 at 13:00; Status Hold Ferrous Sulfate (Ferrous Sulfate (Ec)) 325 mg DAILY PO Last administered on 12/08/18 08:18; Admin Dose 325 MG; Start 11/27/18 at 09:00 Loratadine (Claritin) 10 mg DAILY PO Last administered on 12/08/18at 08:18; Admin Dose 10 MG; Start 11/27/18 at 09:00 Atorvastatin Calcium (Lipitor) 10 mg DAILY@21 PO Last administered on 12/07/18at 21:02; Admin Dose 10 MG; Start 11/27/18 at 21:00 Miscellaneous Information 1 ea NOTE XX ; Start 11/27/18 at 01:00 Glucose (Glutose) 15 gm Q15M PRN PO DECREASED GLUCOSE; Start 11/27/18 at 01:00 Glucose (Glutose) 22.5 gm Q15M PRN PO DECREASED GLUCOSE; Start 11/27/18 at 01:00 Dextrose (D50w Syringe) 25 ml Q15M PRN IV DECREASED GLUCOSE; Start 11/27/18 at 01:00 Dextrose (D50w Syringe) 50 ml Q15M PRN IV DECREASED GLUCOSE; Start 11/27/18 at 01:00 Glucagon (Glucagen) 1 mg Q15M PRN IM DECREASED GLUCOSE; Start 11/27/18 at 01:00 Glucose (Glutose) 15 gm Q15M PRN BUCCAL DECREASED GLUCOSE; Start 11/27/18 at 01:00 Miscellaneous Information Patients own medicat... BID@10,16 XX ; Start 11/27/18 at 10:00 Diagnostic Test (Pha) (Accu-Chek) 1 ea 02 XX Last administered on 12/04/18at 02:36; Admin Dose 1 EA; Start 11/28/18 at 02:00 Insulin Aspart (Novolog Insulin Pen) NOVOLOG *MODERATE* ALGORITHM WITH MEALS BEDTIME SC Last administered on 12/08/18 08:14; Admin Dose 2 UNIT; Start 11/28/18 at 18:05 Spironolactone (Aldactone) 25 mg BID PO Last administered on 12/08/18 08:19; Admin Dose 25 MG; Start 11/29/18 at 21:00 Carvedilol (Coreg) 3.125 mg BID PO Last administered on 12/08/18 08:17; Admin Dose 3.125 MG; Start 11/30/18 at 21:00 Lisinopril (Zestril) 2.5 mg DAILY PO Last administered on 12/04/18 08:40; Admin Dose 2.5 MG; Start 12/01/18 at 09:00; Status Hold Sildenafil Citrate (Revatio) 10 mg TID PO Last administered on 12/08/18 08:15; Admin Dose 10 MG; Start 12/02/18 at 21:00 Tramadol HCl (Ultram) 50 mg Q6H PRN PO MODERATE PAIN LEVEL 4-6; Start 12/02/18 at 13:00 Acetaminophen/ Hydrocodone Bitart ([place] (5/325)) 1 tab Q4H PRN PO MODERATE PAIN LEVEL 4-6; Start 12/02/18 at 13:30 Pantoprazole (Protonix Tab) 40 mg BID@0600,1800 PO Last administered on 12/08/18 05:48; Admin Dose 40 MG; Start 12/02/18 at 18:00 Sucralfate (Carafate Susp) 1 gm QID PO Last administered on 12/08/18 08:15; Admin Dose 1 GM; Start 12/02/18 at 17:00 Warfarin Sodium (Coumadin) 4 mg DAILY@17 PO Last administered on 12/07/18 18 :58; Admin Dose 4 MG; Start 12/05/18 at 17:00 Insulin Glargine (Lantus) 20 units QHS SC Last administered on 12/07/18 21:07; Admin Dose 20 UNITS; Start 12/06/18 at 21:00 Linagliptin (Tradjenta) 5 mg DAILY PO Last administered on 12/08/18 08:18; Admin Dose 5 MG; Start 12/06/18 at 12:30 Bumetanide (Bumex) 1 mg DAILY PO Last administered on 12/08/18at 08:20; Admin Dose 1 MG; Start 12/08/18 at 09:00 Rodger Choi DO Dec 08, 2018 12:18
[2018-12-08 14:30] VITALS: BP 125/65; PULSE 74; RESP 16
== END 2018-12-08 15:17 | disposition home or self-care (01) | DRG 432 ==
LOC: E/R 16:58 → SUATTDRO 21:33 → PP2 22:46
PROVIDERS: ADMIT Internal Medicine; ATTEND Internal Medicine
PROC: 0W9G3ZZ Drainage of Peritoneal Cavity, Percutaneous Approach (ICD-10-PCS; principal; 2018-11-28)
DX: K74.60 Unspecified cirrhosis of liver (principal); I50.33 Acute on chronic diastolic (congestive) heart failure; R18.8 Other ascites; N17.9 Acute kidney failure, unspecified; E11.65 Type 2 diabetes mellitus with hyperglycemia; I48.91 Unspecified atrial fibrillation; Z79.01 Long term (current) use of anticoagulants; E03.9 Hypothyroidism, unspecified; Z95.2 Presence of prosthetic heart valve; I27.20 Pulmonary hypertension, unspecified; E83.42 Hypomagnesemia; I11.0 Hypertensive heart disease with heart failure; R10.13 Epigastric pain
CPT/HCPCS: 36415; 71045; 74176; 80048; 80053; 80069; 80162; 81001; 81003; 82043; 82962; 83036; 83690; 83735; 84100; 84155; 84300; 84443; 85025; 85610; 85730; 86038; 86255; 93005; J1650; J1815; J3475; P9047

== ENCOUNTER 2019-01-10 15:25 | Observation (INO) | payer OTHER ==
[~2019-01-10] VITALS: Ht 152.4 cm; Wt 97.3 kg
[~2019-01-10 15:25] MED LIST changes: -BUME1TAB PO; +CARAS PO; +CARV3.1260 PO; -CARV6.2579 PO; +COU2 PO; -LISI-313 PO; +PANT40TA4 PO; -WARF6TAB PO
[2019-01-10 15:39] VITALS: Ht 152.4 cm; Wt 97.3 kg
[2019-01-10] MEDS ORDERED: WARF2TAB PO (17:11)
[2019-01-10] MEDS ORDERED: BUME1TAB PO (17:12)
[2019-01-10] MEDS ORDERED: ACETAMINOPHEN 325 MG TAB PO PRN (18:00)
[2019-01-10] MEDS ORDERED: ONDANSETRON 4 MG INJ IV PRN ×2 (18:00→18:30)
[2019-01-10] MEDS ORDERED: FUROSEMIDE 40 MG INJ IV ONE (18:00)
--- NOTE | 2019-01-10 18:29 | ERD ---
ER Documentation Chief Complaint Chief Complaint SWELLING ON ABDOMEN, PT HERE FOR PARACENTESIS HPI Patient is a 53-year-old female with diabetes and cirrhosis who presents with "accumulating fluid". The patient has had fluid in her abdomen since her last paracentesis on November 28. It is getting worse. She has no fevers. She has sh ortness of breath with walking. Upon review of old medical record the patient has multiple visits with similar complaints and admissions. Her primary doctor is Dr. Alice Cain. She does not have a liver specialist at this time. ROS All systems reviewed and are negative except as per history of present illness. Medications Home Meds Active Scripts Sucralfate* (Carafate*) 1 Gm/10 Ml Susp, 1 GM PO QID, #120 ML 1 Refill Prov:ALFONZO BISHOP . 12/07/18 Pantoprazole* (Pantoprazole*) 40 Mg Tablet., 40 MG PO BID@0600,1800, #60 TAB 1 Refill Prov:ALFONZO BISHOP . 12/07/18 Carvedilol* (Carvedilol*) 3.125 Mg Tablet, 3.125 MG PO BID, #60 TAB 2 Refills Prov:ALFONZO BISHOP . 12/07/18 Spironolactone* (Aldactone*) 25 Mg Tablet, 25 MG PO BID, #60 TAB 2 Refills Prov:ALFONZO BISHOP . 12/07/18 Insulin Glargine,Hum.rec.anlog (Basaglar Kwikpen U-100) 100 Unit/1 Ml Insuln.pen, 20 UNIT SC QHS, #6 VIAL 1 Refill Prov:ALFONZO BISHOP . 09/16/18 Insulin Lispro (Humalog) 100 Unit/1 Ml Cartridge, 7 UNIT SQ WITH MEALS, #7 VIAL 2 Refills Prov:ALFONZO BISHOP . 09/16/18 Reported Medications Bumetanide* (Bumetanide*) 1 Mg Tablet, 1 MG PO BID, TAB 01/10/19 Warfarin Sodium* (Coumadin*) 2 Mg Tablet, 2 MG PO BID, TAB 01/10/19 Simvastatin* (Zocor*) 20 Mg Tablet, 20 MG PO QHS, #30 TAB 09/13/18 Sitagliptin* (Januvia*) 50 Mg Tablet, 50 MG PO DAILY, #30 TAB 09/13/18 Discontinued Reported Medications Triamcinolone Acetonide* (Kenalog*) 0.1%-15GM Oint, 1 APPLIC TOP BID, #1 EA 09/13/18 Loratadine* (Loratadine*) 10 Mg Tablet, 10 MG PO DAILY, #30 TAB 09/13/18 Ferrous Sulfate* (Ferrous Sulfate*) 325 Mg Tabec, 325 MG PO DAILY, TAB 09/13/18 Digoxin* (Digitek*) 125 Mcg Tablet, 0.125 MG PO DAILY, TAB 09/13/18 Discontinued Scripts Sildenafil Citrate* (Revatio*) 20 Mg Tab, 10 MG PO TID for 30 Days, #15 TAB Prov:ALFONZO BISHOP. 12/07/18 Warfarin Sod (Coumadin) 2 Mg Tab, 4 MG PO DAILY@17 for 14 Days, #28 TAB Prov:ALFONZO BISHOP. 12/07/18 Allergies Allergies: Coded Allergies: morphine (Verified Allergy, Unknown, SOB, 01/10/19) PMhx/Soc History of Surgery: Yes (mitral valve replacement., Appendectomy, cholecystectomy) Anesthesia Reaction: No Hx Neurological Disorder: No Hx Respiratory Disorders: No Hx Cardiac Disorders: Yes (CHF, HTN) Hx Psychiatric Problems: No Hx Miscellaneous Medical Probl: No Hx Alcohol Use: No Hx Substance Use: No Hx Tobacco Use: No Smoking Status: Never smoker FmHx Family History: diabetes Physical Exam Vitals Vital Signs Date Temp Pulse Resp B/P (MAP) Pulse Ox O2 O2 Flow FiO2 Time Delivery Rate 01/10/19 88 20 103/67 98 Room Air 18:10 (79) 01/10/19 99.7 91 18 124/67 94 15:39 (86) Physical Exam Const: Moderate distress Head: Atraumatic Eyes: Normal Conjunctiva ENT: Normal External Ears, Nose and Mouth. Neck: Full range of motion. No meningismus. Resp: Clear to auscultation bilaterally Cardio: Regular rate and rhythm, no murmurs Abd: Diffuse ascites with positive fluid wave Skin: Pale skin Back: No midline or flank tenderness Ext: 4+ pitting edema bilateral lower extremities Neur: Awake and alert Psych: Normal Mood and Affect Result Diagram: 01/10/19 1553 01/10/19 1553 Results 24 hrs Laboratory Tests Test 01/10/19 15:53 White Blood Count 5.8 10^3/ul Red Blood Count 3.94 10^6/ul Hemoglobin 11.3 g/dl Hematocrit 36.8 % Mean Corpuscular Volume 93.4 fl Mean Corpuscular Hemoglobin 28.7 pg Mean Corpuscular Hemoglobin Concent 30.7 g/dl Red Cell Distribution Width 14.8 % Platelet Count 277 10^3/UL Mean Platelet Volume 10.0 fl Immature Granulocytes % 0.500 % Neutrophils % 68.4 % Lymphocytes % 19.0 % Monocytes % 8.3 % Eosinophils % 2.9 % Basophils % 0.9 % Nucleated Red Blood Cells % 0.0 /100WBC Immature Granulocytes # 0.030 10^3/ul Neutrophils # 4.0 10^3/ul Lymphocytes # 1.1 10^3/ul Monocytes # 0.5 10^3/ul Eosinophils # 0.2 10^3/ul Basophils # 0.1 10^3/ul Nucleated Red Blood Cells # 0.0 10^3/ul Prothrombin Time 21.3 Sec Prothrombin Time Ratio 1.7 INR International Normalized Ratio 1.84 Activated Partial Thromboplast Time 31.0 Sec Sodium Level 140 mmol/L Potassium Level 4.5 mmol/L Chloride Level 105 mmol/L Carbon Dioxide Level 26 mmol/L Anion Gap 9 Blood Urea Nitrogen 20 mg/dl Creatinine 1.07 mg/dl Est Glomerular Filtrat Rate mL/min 54 mL/min Glucose Level 173 mg/dl Calcium Level 9.4 mg/dl Total Bilirubin 0.7 mg/dl Direct Bilirubin 0.00 mg/dl Indirect Bilirubin 0.7 mg/dl Aspartate Amino Transf (AST/SGOT) 27 IU/L Alanine Aminotransferase (ALT/SGPT) 18 IU/L Alkaline Phosphatase 122 IU/L Total Protein 7.5 g/dl Albumin 3.9 g/dl Globulin 3.60 g/dl Albumin/Globulin Ratio 1.08 Current Medications Medications Dose Sig/Mallika Start Time Status Last (Trade) Ordered Route PRN Stop Time Admin Dose Reason Admin Furosemide 40 mg ONCE ONCE 01/10/19 DC 01/10/19 (Lasix) IV 18:00 18:12 01/10/19 18:01 Ondansetron 4 mg BRIDGE ORDER 01/10/19 HCl (Zofran PRN IV 18:00 Inj) NAUSEA/VOMITI 01/11/19 17:59 NG 650 mg ER BRIDGE 01/10/19 Acetaminophen PRN PO 18:00 (Tylenol .MILD PAIN 01/11/19 17:59 Tab) 1-3 OR TEMP IV Flush 3 ml PER 01/10/19 (NS 3 ml) PROTOCOL IV 18:30 Ondansetron 4 mg Q6H PRN 01/10/19 HCl (Zofran IV 18:30 Inj) NAUSEA/VOMITI NG Morphine 2 mg Q4H PRN 01/10/19 UNV Sulfate IV .SEVERE 18:30 (morphine) PAIN 7-10 Docusate 100 mg Q12H PRN 01/10/19 Sodium PO 18:30 (Colace) .CONSTIPATION Zolpidem 5 mg QHS PRN 01/10/19 Tartrate PO .INSOMNIA 18:30 (Ambien) Carvedilol 3.125 mg BID PO 01/10/19 UNV (Coreg) 21:00 Insulin 10 unit QHS SC 01/10/19 UNV Glargine 21:00 (Lantus) 40 mg 01/11/19 Pantoprazole BID@0600,1800 06:00 (Protonix PO Tab) 25 mg BID PO 01/10/19 UNV Spironolacton 21:00 e (Aldactone) Sucralfate 1 gm QID PO 01/10/19 UNV (Carafate 21:00 Susp) Warfarin 2 mg BID PO 01/10/19 UNV Sodium 21:00 (Coumadin) Bumetanide 1 mg BID 01/10/19 UNV (Bumex) DIURETICS 18:30 IV Discontinue ONCE ONCE 01/10/19 UNV Miscellaneous current oral XX 18:30 sulfonylur... 01/10/19 18:31 Information (* Miscellaneous Pharmacy Order) Diagnostic 1 ea 02 XX 01/11/19 UNV Test (Pha) 02:00 (Accu-Chek) ONCE ONCE 01/10/19 UNV Miscellaneous HYPOGLYCEMIA XX 18:30 PROTOCOL 01/10/19 18:31 Information w... (* Miscellaneous Pharmacy Order) Insulin NOVOLOG WITH MEALS 01/10/19 UNV Aspart *MILD* BEDTIME SC 21:00 (Novolog ALGORITHM Insulin Pen) Discontinue ONCE ONCE 01/10/19 UNV Miscellaneous all previ... XX 18:30 01/10/19 18:31 Information (* Miscellaneous Pharmacy Order) Procedures/MDM Ultrasound-guided paracentesis is pending at this time. Patient is a 53-year-old female who presents with cirrhosis, ascites, and anasarca. The patient had laboratory studies done. Unfortunately there is no interventional radiologist available at this time to perform the procedure. This can be done tomorrow. The patient does have anasarca as well and I believe will need admission for this even if she has been able to get the paracentesis in the emergency department. The patient will be admitted to the care of Dr. Stewart to a medical surgical bed. Departure Diagnosis: Primary Impression: Anasarca Additional Impression: Ascites Ascites type: other type Qualified Codes: R18.8 - Other ascites Condition: SAMUEL Leung MD Jan 10, 2019 18:29
[2019-01-10] MEDS ORDERED: ZOLPIDEM 5 MG TAB PO PRN (18:30)
[2019-01-10] MEDS ORDERED: morphine 2 MG INJ IV PRN (18:30)
[2019-01-10] MEDS ORDERED: DOCUSATE SODIUM 100 MG CAP PO PRN (18:30)
[2019-01-10] MEDS ORDERED: NACL 0.9% 3 ML SYG IV SCH (18:30)
--- NOTE | 2019-01-10 18:51 | HP ---
Date/Time of Note Date/Time of Note DATE: 01/10/19 TIME: 18:47 Assessment/Plan VTE Prophylaxis Pharmacological prophylaxis: warfarin tx Lines/Catheters IV C[facility]ter Type [facility]from [facility]): [facility] Assessment/Plan Hospital Course 1. Ascites secondary to cirrhosis Paracentesis in a.m. Continue diuretics 2. 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 Diabetes Schedule insulin sliding scale 4. History mitral valve replacement Continue Coumadin 5. Paroxysmal A. fib On Coumadin Prophylaxis: Coumadin Result Diagram: 01/10/19 1553 01/10/19 1553 Results 24hrs Laboratory Tests Test 01/10/19 15:53 White Blood Count 5.8 # Red Blood Count 3.94 L Hemoglobin 11.3 L Hematocrit 36.8 L Mean Corpuscular Volume 93.4 Mean Corpuscular Hemoglobin 28.7 L Mean Corpuscular Hemoglobin Concent 30.7 L Red Cell Distribution Width 14.8 H Platelet Count 277 # Mean Platelet Volume 10.0 Immature Granulocytes % 0.500 H Neutrophils % 68.4 Lymphocytes % 19.0 Monocytes % 8.3 Eosinophils % 2.9 Basophils % 0.9 Nucleated Red Blood Cells % 0.0 Immature Granulocytes # 0.030 Neutrophils # 4.0 Lymphocytes # 1.1 Monocytes # 0.5 Eosinophils # 0.2 Basophils # 0.1 Nucleated Red Blood Cells # 0.0 Prothrombin Time 21.3 #H Prothrombin Time Ratio 1.7 INR International Normalized Ratio 1.84 Activated Partial Thromboplast Time 31.0 Sodium Level 140 Potassium Level 4.5 Chloride Level 105 Carbon Dioxide Level 26 Anion Gap 9 Blood Urea Nitrogen 20 Creatinine 1.07 H Est Glomerular Filtrat Rate mL/min 54 L Glucose Level 173 Calcium Level 9.4 Total Bilirubin 0.7 Direct Bilirubin 0.00 Indirect Bilirubin 0.7 Aspartate Amino Transf (AST/SGOT) 27 Alanine Aminotransferase (ALT/SGPT) 18 Alkaline Phosphatase 122 H Total Protein 7.5 Albumin 3.9 Globulin 3.60 H Albumin/Globulin Ratio 1.08 HPI/ROS Admit Date/Time Admit Date/Time January 10, 2019 Hx of Present Illness Patient is a 53-year-old female with a history of cirrhosis like secondary to FRIEDMAN, diabetes, heart failure, pulmonary hypertension, A. fib and mitral valve replacement. Patient is on diuretics and has been compliant but presents with worsening abdominal distention. Patient did have a recent paracentesis 1 month ago. Patient has no other complaints at this time. ROS Constitutional: no complaints, improved Eyes: no complaints ENT: no complaints Respiratory: no complaints Cardiovascular: no complaints Gastrointestinal: other (Swelling) Genitourinary: no complaints Musculoskeletal: no complaints Skin: no complaints Neurologic: no complaints Endocrine: no complaints Lymphatic: no complaints Psychological: no complaints, nl mood/affect Immunologic: no complaints PMH/Family/Social Past Medical History As per HPI Medications Current Medications Ondansetron HCl (Zofran Inj) 4 mg BRIDGE ORDER PRN IV NAUSEA/VOMITING; Start 01/10/19 at 18:00; Stop 01/11/19 at 17:59 Acetaminophen (Tylenol Tab) 650 mg ER BRIDGE PRN PO .MILD PAIN 1-3 OR TEMP; Start 01/10/19 at 18:00; Stop 01/11/19 at 17:59 IV Flush (NS 3 ml) 3 ml PER PROTOCOL IV ; Start 01/10/19 at 18:30 Ondansetron HCl (Zofran Inj) 4 mg Q6H PRN IV NAUSEA/VOMITING; Start 01/10/19 at 18:30 Morphine Sulfate (morphine) 2 mg Q4H PRN IV .SEVERE PAIN 7-10; Start 01/10/19 at 18:30; Status UNV Docusate Sodium (Colace) 100 mg Q12H PRN PO .CONSTIPATION; Start 01/10/19 at 18:30 Zolpidem Tartrate (Ambien) 5 mg QHS PRN PO .INSOMNIA; Start 01/10/19 at 18:30 Carvedilol (Coreg) 3.125 mg BID PO ; Start 01/10/19 at 21:00; Status UNV Insulin Glargine (Lantus) 10 unit QHS SC ; Start 01/10/19 at 21:00; Status UNV Pantoprazole (Protonix Tab) 40 mg BID@0600,1800 PO ; Start 01/11/19 at 06:00 Spironolactone (Aldactone) 25 mg BID PO ; Start 01/10/19 at 21:00; Status UNV Sucralfate (Carafate Susp) 1 gm QID PO ; Start 01/10/19 at 21:00 Warfarin Sodium (Coumadin) 2 mg BID PO ; Start 01/10/19 at 21:00; Status UNV Bumetanide (Bumex) 1 mg BID DIURETICS IV ; Start 01/10/19 at 18:30; Status UNV Diagnostic Test (Pha) (Accu-Chek) 1 ea 02 XX ; Start 01/11/19 at 02:00 Insulin Aspart (Novolog Insulin Pen) NOVOLOG *MILD* ALGORITHM WITH MEALS BEDTIME SC ; Start 01/10/19 at 21:00; Status UNV Miscellaneous Information 1 ea NOTE XX ; Start 01/10/19 at 19:00 Glucose (Glutose) 15 gm Q15M PRN PO DECREASED GLUCOSE; Start 01/10/19 at 19:00 Glucose (Glutose) 22.5 gm Q15M PRN PO DECREASED GLUCOSE; Start 01/10/19 at 19:00 Dextrose (D50w Syringe) 25 ml Q15M PRN IV DECREASED GLUCOSE; Start 01/10/19 at 19:00 Dextrose (D50w Syringe) 50 ml Q15M PRN IV DECREASED GLUCOSE; Start 01/10/19 at 19:00 Glucagon (Glucagen) 1 mg Q15M PRN IM DECREASED GLUCOSE; Start 01/10/19 at 19:00 Glucose (Glutose) 15 gm Q15M PRN BUCCAL DECREASED GLUCOSE; Start 01/10/19 at 19:00 Coded Allergies: morphine (Verified Allergy, Unknown, SOB, 01/10/19) Past Surgical History Past Surgical Hx: other Family History Significant Family History: no pertinent family hx Social History Alcohol Use: none Smoking Status: Never smoker Drug Use: none Exam/Review of Systems Vital Signs Vitals Vital Signs Date Temp Pulse Resp B/P (MAP) Pulse Ox O2 O2 Flow FiO2 Time Delivery Rate 01/10/19 88 20 103/67 98 Room Air 18:10 (79) 01/10/19 99.7 15:39 Exam Constitutional: alert, oriented Respiratory: clear to auscultation Cardiovascular: regular rate and rhythm Gastrointestinal: soft, distended Musculoskeletal: nl extremities to inspection SUZETTE FUENTES Jan 10, 2019 18:51
[2019-01-10] MEDS ORDERED: GLUCAGON 1 MG INJ IM PRN (19:00)
[2019-01-10] MEDS ORDERED: GLUCOSE GEL 15 GRAM TUBE BUCCAL PRN (19:00)
[2019-01-10] MEDS ORDERED: DEXTROSE 50% 50 ML SYRINGE IV PRN ×2 (19:00)
[2019-01-10] MEDS ORDERED: GLUCOSE GEL 15 GRAM TUBE PO PRN ×2 (19:00)
[2019-01-10] MEDS ORDERED: KETOROLAC 30 MG INJ IV PRN (19:30)
[2019-01-10 20:05] VITALS: BP 123/72; PULSE 89; RESP 16
[2019-01-10] MEDS ORDERED: WARFARIN 2 MG TAB PO SCH (21:00)
[2019-01-10] MEDS ORDERED: INSULIN ASPART [NOVOLOG] 3 ML PEN SC SCH (21:00)
[2019-01-10] MEDS: SPIRONOLACTONE 25 MG TAB PO SCH (21:49)
[2019-01-10] MEDS: SUCRALFATE (100 MG/ML) 10ML CUP PO SCH (21:49)
[2019-01-10] MEDS: BUMETANIDE 1 MG INJ IV SCH (21:52)
[2019-01-10] MEDS: INSULIN GLARGINE [LANTus] (100 UNITS/ML) SYG SC SCH (21:54)
[2019-01-11] MEDS ORDERED: ACCU-CHEK XX SCH (02:00)
[2019-01-11] MEDS: INSULIN ASPART [NOVOLOG] 3 ML PEN SC SCH ×6 (02:11→21:16)
[2019-01-11] MEDS: PANTOPRAZOLE (EC) 40 MG TAB PO SCH ×2 (05:15→18:57)
[2019-01-11] MEDS: BUMETANIDE 1 MG INJ IV SCH ×2 (05:15→18:57)
[2019-01-11 07:23] VITALS: BP 115/70; PULSE 89; RESP 18
[2019-01-11] MEDS: SPIRONOLACTONE 25 MG TAB PO SCH ×2 (09:05→21:13)
[2019-01-11] MEDS: SUCRALFATE (100 MG/ML) 10ML CUP PO SCH ×4 (09:05→21:12)
[2019-01-11] MEDS ORDERED: LIDOCAINE 1% (MPF) 5 ML VIAL ONE (11:48)
[2019-01-11] MEDS ORDERED: MAGNESIUM SULFATE 4 GM/100 ML 100 ML IVPB ONE (12:00)
[2019-01-11 14:06] VITALS: BP 113/60; PULSE 56; RESP 16
--- NOTE | 2019-01-11 15:50 | PDOCDIS ---
Discharge Instructions CONDITION [id number] Patient Condition: [id number] Good HOME CARE INSTRUCTIONS: [id number] Diet Instructions: [id number] Reduced Sodium ACTIVITY: [id number] Activity Restrictions: [id number] No Restrictions FOLLOW UP/APPOINTMENTS Follow-up Plan FOLLOW UP WITH YOUR PCP IN 1-2 WEEKS SUZETTE FUENTES Jan 11, 2019 15:50
--- NOTE | 2019-01-11 16:00 | DS ---
Date/Time of Note Date/Time of Note DATE: 01/11/19 TIME: 15:58 Discharge Summary Admission/Discharge Info Admit Date/Time Jan 10, 2019 at 17:52 Discharge Date/Time January 11, 2019 Discharge Diagnosis 1. Ascites secondary to cirrhosis Status post paracentesis Continue diuretics 2. 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 Diabetes Continue home regimen 4. History mitral valve replacement Continue Coumadin 5. Paroxysmal A. fib On Coumadin Patient Condition: Good Hospital Course Patient is a 53-year-old female with a history of cirrhosis like secondary to FRIEDMAN, diabetes, heart failure, pulmonary hypertension, A. fib and mitral valve replacement. Patient is on diuretics and has been compliant but presents with worsening abdominal distention. Patient did have a recent paracentesis 1 month ago. Patient underwent another paracentesis with no reported on medications. Patient stable for DC, on the day of discharge patient vitals, labs of his exam are stable. Home Meds Active Scripts Sucralfate* (Carafate*) 1 Gm/10 Ml Susp, 1 GM PO QID, #120 ML 1 Refill Prov:ALFONZO BISHOPRocco 12/07/18 Pantoprazole* (Pantoprazole*) 40 Mg Tablet.dr, 40 MG PO BID@0600,1800, #60 TAB 1 Refill Prov:ALFONZO BISHOPRocco 12/07/18 Carvedilol* (Carvedilol*) 3.125 Mg Tablet, 3.125 MG PO BID, #60 TAB 2 Refills Prov:ALFONZO BISHOPRocco 12/07/18 Spironolactone* (Aldactone*) 25 Mg Tablet, 25 MG PO BID, #60 TAB 2 Refills Prov:ALFONZO BISHOPRocco 12/07/18 Insulin Glargine,Hum.rec.anlog (Basaglar Kwikpen U-100) 100 Unit/1 Ml Insuln.pen, 20 UNIT SC QHS, #6 VIAL 1 Refill Prov:ALFONZO BISHOPRocco 09/16/18 Insulin Lispro (Humalog) 100 Unit/1 Ml Cartridge, 7 UNIT SQ WITH MEALS, #7 VIAL 2 Refills Prov:ALFONZO BISHOPRocco 09/16/18 Reported Medications Bumetanide* (Bumetanide*) 1 Mg Tablet, 1 MG PO BID, TAB 01/10/19 Warfarin Sodium* (Coumadin*) 2 Mg Tablet, 2 MG PO BID, TAB 01/10/19 Simvastatin* (Zocor*) 20 Mg Tablet, 20 MG PO QHS, #30 TAB 09/13/18 Sitagliptin* (Januvia*) 50 Mg Tablet, 50 MG PO DAILY, #30 TAB 09/13/18 Discontinued Reported Medications Triamcinolone Acetonide* (Kenalog*) 0.1%-15GM Oint, 1 APPLIC TOP BID, #1 EA 09/13/18 Loratadine* (Loratadine*) 10 Mg Tablet, 10 MG PO DAILY, #30 TAB 09/13/18 Ferrous Sulfate* (Ferrous Sulfate*) 325 Mg Tabec, 325 MG PO DAILY, TAB 09/13/18 Digoxin* (Digitek*) 125 Mcg Tablet, 0.125 MG PO DAILY, TAB 09/13/18 Discontinued Scripts Sildenafil Citrate* (Revatio*) 20 Mg Tab, 10 MG PO TID for 30 Days, #15 TAB Prov:ALFONZO BISHOP 12/07/18 Warfarin Sod (Coumadin) 2 Mg Tab, 4 MG PO DAILY@17 for 14 Days, #28 TAB Prov:ALFONZO BISHOP 12/07/18 Follow-up Plan FOLLOW UP WITH YOUR PCP IN 1-2 WEEKS Primary Care Provider [facility] Time spent on discharge: > 30 minutes SUZETTE FUENTES Jan 11, 2019 16:00
[2019-01-11] MEDS ORDERED: WARFARIN 2 MG TAB PO SCH (17:00)
[2019-01-11 20:00] VITALS: BP 112/64; PULSE 67; RESP 17
[2019-01-11] MEDS: INSULIN GLARGINE [LANTus] (100 UNITS/ML) SYG SC SCH (21:16)
== END 2019-01-11 22:07 | disposition home or self-care (01) ==
LOC: E/R 15:25 → PP2 17:52
PROVIDERS: ADMIT Internal Medicine; ATTEND Internal Medicine
DX: R18.8 Other ascites (principal); K74.69 Other cirrhosis of liver; E11.9 Type 2 diabetes mellitus without complications; I48.0 Paroxysmal atrial fibrillation; Z79.01 Long term (current) use of anticoagulants; Z95.4 Presence of other heart-valve replacement; Z79.4 Long term (current) use of insulin
CPT/HCPCS: 80048; 80053; 82962; 83036; 83735; 84100; 85025; 85610; 85730; J1815; J1940; J3475; Z7500; Z7502; Z7610; G0378

== ENCOUNTER 2019-01-28 21:47 | Inpatient (IN) | payer OTHER ==
[~2019-01-28] VITALS: Ht 162.6 cm; Wt 100.3 kg
[~2019-01-28 21:47] MED LIST changes: +BUME1TAB PO; -DIGO125T PO; -FER325 PO; -KEN1O TOP; -LORA10TA3 PO; -SILD20TA13 PO; +WARF2TAB PO
[2019-01-29] MEDS ORDERED: ONDANSETRON 4 MG INJ IV PRN ×2 (01:30→04:30)
[2019-01-29] MEDS ORDERED: ACETAMINOPHEN 325 MG TAB PO PRN ×2 (01:30→04:30)
--- NOTE | 2019-01-29 02:14 | ERD ---
ER Documentation Chief Complaint Chief Complaint NEEDS PARACENTESIS HPI This is a 54-year-old female with a history of cryptogenic cirrhosis, anasarca, ascites, CHF who presents to the emergency room for evaluation of shortness of breath and abdominal distention. The patient states that her symptoms have been getting worse over the past 48 hours. She states that it is difficult for her to breathe when she is lying flat. She states that last time she was in the hospital they did a paracentesis which was helpful for her symptoms. She denies any fevers, chills, nausea or vomiting at this time. ROS All systems reviewed and are negative except as per history of present illness. Medications Home Meds Active Scripts Sucralfate* (Carafate*) 1 Gm/10 Ml Susp, 1 GM PO QID, #120 ML 1 Refill Prov:ALFONZO BISHOP. 12/07/18 Pantoprazole* (Pantoprazole*) 40 Mg Tablet.dr, 40 MG PO BID@0600,1800, #60 TAB 1 Refill Prov:ALFONZO BISHOP. 12/07/18 Carvedilol* (Carvedilol*) 3.125 Mg Tablet, 3.125 MG PO BID, #60 TAB 2 Refills Prov:ALFONZO BISHOP . 12/07/18 Spironolactone* (Aldactone*) 25 Mg Tablet, 25 MG PO BID, #60 TAB 2 Refills Prov:ALFONZO BISHOP. 12/07/18 Insulin Glargine,Hum.rec.anlog (Basaglar Kwikpen U-100) 100 Unit/1 Ml Insuln.pen, 20 UNIT SC QHS, #6 VIAL 1 Refill Prov:ALFONZO BISHOP. 09/16/18 Insulin Lispro (Humalog) 100 Unit/1 Ml Cartridge, 7 UNIT SQ WITH MEALS, #7 VIAL 2 Refills Prov:ALFONZO BISHOP. 09/16/18 Reported Medications Bumetanide* (Bumetanide*) 1 Mg Tablet, 1 MG PO BID, TAB 01/10/19 Warfarin Sodium* (Coumadin*) 2 Mg Tablet, 2 MG PO BID, TAB 01/10/19 Simvastatin* (Zocor*) 20 Mg Tablet, 20 MG PO QHS, #30 TAB 09/13/18 Sitagliptin* (Januvia*) 50 Mg Tablet, 50 MG PO DAILY, #30 TAB 09/13/18 Allergies Allergies: Coded Allergies: morphine (Verified Allergy, Unknown, SOB, 01/10/19) PMhx/Soc History of Surgery: Yes (mitral valve replacement , appendectomy, cholectstectomy ) Anesthesia Reaction: No Hx Neurological Disorder: No Hx Respiratory Disorders: No Hx Cardiac Disorders: Yes Hx Psychiatric Problems: No Hx Miscellaneous Medical Probl: No Hx Alcohol Use: No Hx Substance Use: No Hx Tobacco Use: No Physical Exam Vitals Vital Signs Date Temp Pulse Resp B/P (MAP) Pulse Ox O2 O2 Flow FiO2 Time Delivery Rate 01/28/19 99.6 22:56 01/28/19 99.8 101 20 135/79 93 21:56 (97) Physical Exam INITIAL VITAL SIGNS: Reviewed by me GENERAL: The patient is well developed and appropriate for usual state of health in no apparent distress HEENT: Pupils equal, round, and reactive to light. EOMI. There is no scleral ic terus. NECK: C-spine is soft and supple, there is no meningismus. There is no cervical lymphadenopathy. LUNGS: Clear to auscultation bilaterally. There are no rales, wheezes or rhonchi. HEART: Tachycardic, no murmurs, clicks, rubs or gallops. ABDOMEN: Moderate abdominal distention. There are bowel sounds in all four quadrants. No rebound or guarding. EXTREMITIES: There is no peripheral cyanosis or edema. No focal swelling or erythema. NEUROLOGICAL: The patient moves all four extremities with 5/5 strength. Cranial nerves II - XII are intact. Normal gait. Alert and oriented SKIN: There is no apparent rash or petechiae. HEME/LYMPHATIC: There is no evidence of excessive bruising or lymphedema. PSYCHIATRIC: The patient does not appear anxious or depressed. Result Diagram: 01/29/19 0054 01/29/19 0054 Results 24 hrs Laboratory Tests Test 01/29/19 00:54 White Blood Count 5.6 10^3/ul Red Blood Count 3.99 10^6/ul Hemoglobin 11.4 g/dl Hematocrit 36.5 % Mean Corpuscular Volume 91.5 fl Mean Corpuscular Hemoglobin 28.6 pg Mean Corpuscular Hemoglobin Concent 31.2 g/dl Red Cell Distribution Width 14.5 % Platelet Count 282 10^3/UL Mean Platelet Volume 10.0 fl Immature Granulocytes % 0.500 % Neutrophils % 66.8 % Lymphocytes % 18.4 % Monocytes % 10.0 % Eosinophils % 3.6 % Basophils % 0.7 % Nucleated Red Blood Cells % 0.0 /100WBC Immature Granulocytes # 0.030 10^3/ul Neutrophils # 3.7 10^3/ul Lymphocytes # 1.0 10^3/ul Monocytes # 0.6 10^3/ul Eosinophils # 0.2 10^3/ul Basophils # 0.0 10^3/ul Nucleated Red Blood Cells # 0.0 10^3/ul Prothrombin Time 24.3 Sec Prothrombin Time Ratio 1.9 INR International Normalized Ratio 2.18 Activated Partial Thromboplast Time 36.5 Sec Sodium Level 140 mmol/L Potassium Level 4.7 mmol/L Chloride Level 106 mmol/L Carbon Dioxide Level 22 mmol/L Anion Gap 12 Blood Urea Nitrogen 26 mg/dl Creatinine 1.03 mg/dl Est Glomerular Filtrat Rate mL/min 56 mL/min Glucose Level 166 mg/dl Calcium Level 9.0 mg/dl Current Medications Medications Dose Sig/Mallika Start Time Status Last (Trade) Ordered Route PRN Stop Time Admin Dose Reason Admin Ondansetron 4 mg ER BRIDGE 01/29/19 HCl (Zofran PRN IV 01:30 01/30/19 Inj) NAUSEA/VOMITI 01:29 NG 650 mg ER BRIDGE 01/29/19 Acetaminophen PRN PO 01:30 01/30/19 (Tylenol .MILD PAIN 01:29 Tab) 1-3 OR TEMP Procedures/MDM Chest X-ray 1V Interpreted by me: Soft Tissue: No acute abnormalities Bones: No acute abnormalities Mediastinum/Cardiac Silhouette/Lungs: Cardiomegaly This 54-year-old female presents to the emergency room for evaluation of shortness of breath. The patient does have liver cirrhosis and on my exam she was mildly tachycardic however she was not hypoxic. The patient did have significant distention of her abdomen and lab work was obtained. Lab work shows no elevation in troponin however given her age, presenting symptoms with tachycardia, shortness of breath the patient will benefit from hospitalization for continuous monitoring and paracentesis in the morning. The patient's family members do not feel comfortable taking her home at this time. The patient will be admitted to the panel physician Dr. Wagner Departure Diagnosis: Primary Impression: Cirrhosis of liver with ascites Additional Impression: Diabetes mellitus type 2 in obese Condition: BURT Castellano DO Jan 29, 2019 02:14
[2019-01-29 03:21] VITALS: BP 122/93; PULSE 87; RESP 20; Ht 162.6 cm; Wt 100.3 kg
[2019-01-29] MEDS ORDERED: ALBUTEROL/IPRATROPIUM (NEB) 3 ML AMP HHN PRN (04:30)
[2019-01-29] MEDS ORDERED: NACL 0.9% 3 ML SYG IV SCH (04:30)
[2019-01-29] MEDS ORDERED: GLUCOSE GEL 15 GRAM TUBE PO PRN ×2 (05:00)
[2019-01-29] MEDS ORDERED: DEXTROSE 50% 50 ML SYRINGE IV PRN ×2 (05:00)
[2019-01-29] MEDS ORDERED: GLUCAGON 1 MG INJ IM PRN (05:00)
[2019-01-29] MEDS ORDERED: GLUCOSE GEL 15 GRAM TUBE BUCCAL PRN (05:00)
[2019-01-29] MEDS: PANTOPRAZOLE (EC) 40 MG TAB PO SCH ×2 (06:13→17:53)
[2019-01-29] MEDS: BUMETANIDE 1 MG TAB PO SCH ×2 (06:15→17:53)
--- NOTE | 2019-01-29 06:54 | HP ---
Date/Time of Note Date/Time of Note DATE: 01/29/19 TIME: 06:50 Assessment/Plan VTE Prophylaxis SCD applied (from Nsg): Yes Pharmacological prophylaxis: other Assessment/Plan Assessment/Plan 1. Decompensated cryptogenic cirrhosis, likely secondary to Friedman -Patient with recurrent ascites requiring paracentesis. Last one was 3 weeks ago with removal of 3 L -paracentesis during the day -Continue diuretics 2. Diabetes -Insulin 3. Paroxysmal A-fib: Rate controlled -On Coumadin. Will resume after paracentesis -INR 2.2 4. History mitral valve replacement Resume Coumadin after paracentesis -INR 2.2 Result Diagram: 01/29/19 0054 01/29/19 0054 Results 24hrs Laboratory Tests Test 01/29/19 00:54 01/29/19 06:10 White Blood Count 5.6 Red Blood Count 3.99 L Hemoglobin 11.4 L Hematocrit 36.5 L Mean Corpuscular Volume 91.5 Mean Corpuscular Hemoglobin 28.6 L Mean Corpuscular Hemoglobin Concent 31.2 L Red Cell Distribution Width 14.5 Platelet Count 282 Mean Platelet Volume 10.0 Immature Granulocytes % 0.500 H Neutrophils % 66.8 Lymphocytes % 18.4 Monocytes % 10.0 Eosinophils % 3.6 Basophils % 0.7 Nucleated Red Blood Cells % 0.0 Immature Granulocytes # 0.030 Neutrophils # 3.7 Lymphocytes # 1.0 Monocytes # 0.6 Eosinophils # 0.2 Basophils # 0.0 Nucleated Red Blood Cells # 0.0 Prothrombin Time 24.3 H Prothrombin Time Ratio 1.9 INR International Normalized Ratio 2.18 Activated Partial Thromboplast Time 36.5 H Sodium Level 140 Potassium Level 4.7 Chloride Level 106 Carbon Dioxide Level 22 Anion Gap 12 Blood Urea Nitrogen 26 H Creatinine 1.03 H Est Glomerular Filtrat Rate mL/min 56 L Glucose Level 166 Calcium Level 9.0 Bedside Glucose 155 HPI/ROS Admit Date/Time Admit Date/Time Jan 29, 2019 at 01:27 Hx of Present Illness Patient is a 54-year-old female with a history of cirrhosis like secondary to FRIEDMAN, diabetes, heart failure, pulmonary hypertension, A-fib and mitral valve replacement. Patient is on diuretics and has been compliant but presents with worsening abdominal distention. Patient did have a recent paracentesis 3 weeks ago with removal of 5 L. A month prior he also underwent paracentesis year. Patient is now here with worsening abdominal distention. PMH/Family/Social Past Medical History Past Surgical Hx: other (SEE HPI) Family History Significant Family History: no pertinent family hx Social History Alcohol Use: other Smoking Status: Unknown if ever smoked Drug Use: other Exam Constitutional: other (no acute distress) Head: normocephalic, atraumatic Eyes: PERRL Respiratory: normal air movement Cardiovascular: nl pulses Gastrointestinal: soft Extremities: normal pulses Medications Current Medications Ondansetron HCl (Zofran Inj) 4 mg ER BRIDGE PRN IV NAUSEA/VOMITING; Start 01/29/19 at 01:30; Stop 01/30/19 at 01:29 Acetaminophen (Tylenol Tab) 650 mg ER BRIDGE PRN PO .MILD PAIN 1-3 OR TEMP; Start 01/29/19 at 01:30; Stop 01/30/19 at 01:29 IV Flush (NS 3 ml) 3 ml PER PROTOCOL IV ; Start 01/29/19 at 04:30 Ondansetron HCl (Zofran Inj) 4 mg Q6H PRN IV NAUSEA/VOMITING; Start 01/29/19 at 04:30 Acetaminophen (Tylenol Tab) 650 mg Q6H PRN PO .PAIN 1-3 OR TEMP; Start 01/29/19 at 04:30 Albuterol/ Ipratropium (Duoneb) 3 ml Q2H RESP THERAPY PRN HHN SHORTNESS OF BREATH; Start 01/29/19 at 04:30 Diagnostic Test (Pha) (Accu-Chek) 1 ea 02 XX ; Start 01/30/19 at 02:00 Insulin Aspart (Novolog Insulin Pen) NOVOLOG *MILD* ALGORITHM WITH MEALS BEDTIME SC ; Start 01/29/19 at 07:55 Bumetanide (Bumex) 1 mg BID DIURETICS PO Last administered on 01/29/19at 06:15; Admin Dose 1 MG; Start 01/29/19 at 06:00 Carvedilol (Coreg) 3.125 mg BID PO ; Start 01/29/19 at 09:00 Insulin Glargine (Lantus) 20 units QHS SC ; Start 01/29/19 at 21:00 Pantoprazole (Protonix Tab) 40 mg BID@0600,1800 PO Last administered on 01/29/19at 06:13; Admin Dose 40 MG; Start 01/29/19 at 06:00 Spironolactone (Aldactone) 25 mg BID PO ; Start 01/29/19 at 09:00 Sucralfate (Carafate Susp) 1 gm QID PO ; Start 01/29/19 at 09:00 Atorvastatin Calcium (Lipitor) 10 mg DAILY@21 PO ; Start 01/29/19 at 21:00 Insulin Aspart (Novolog Insulin Pen) 7 unit WITH MEALS SC ; Start 01/29/19 at 07:55 Miscellaneous Information 1 ea NOTE XX ; Start 01/29/19 at 05:00 Glucose (Glutose) 15 gm Q15M PRN PO DECREASED GLUCOSE; Start 01/29/19 at 05:00 Glucose (Glutose) 22.5 gm Q15M PRN PO DECREASED GLUCOSE; Start 01/29/19 at 05:00 Dextrose (D50w Syringe) 25 ml Q15M PRN IV DECREASED GLUCOSE; Start 01/29/19 at 05:00 Dextrose (D50w Syringe) 50 ml Q15M PRN IV DECREASED GLUCOSE; Start 01/29/19 at 05:00 Glucagon (Glucagen) 1 mg Q15M PRN IM DECREASED GLUCOSE; Start 01/29/19 at 05:00 Glucose (Glutose) 15 gm Q15M PRN BUCCAL DECREASED GLUCOSE; Start 01/29/19 at 05:00 Coded Allergies: morphine (Verified Allergy, Unknown, SOB, 01/10/19) Past Surgical History Past Surgical Hx: other Family History Significant Family History: no pertinent family hx Social History Smoking Status: Never smoker Exam/Review of Systems Vital Signs Vitals Vital Signs Date Temp Pulse Resp B/P (MAP) Pulse Ox O2 O2 Flow FiO2 Time Delivery Rate 01/29/19 98.1 87 20 122/93 94 Room Air 03:21 (103) Intake and Output 01/28/19 01/28/19 01/29/19 1515:00 23:00 07:00 IntakeIntake Total 300 ml BalanceBalance 300 ml JAMEY MAC MD Jan 29, 2019 06:54
[2019-01-29 07:11] VITALS: BP 100/57; PULSE 90; RESP 20
[2019-01-29] MEDS ORDERED: NON-FORMULARY/PATIENT OWN MED (Insulin Lispro (Humalog) 7 UNIT) SQ SCH (07:55)
[2019-01-29] MEDS: INSULIN ASPART [NOVOLOG] 3 ML PEN SC SCH ×7 (08:25→21:00)
[2019-01-29] MEDS: SUCRALFATE (100 MG/ML) 10ML CUP PO SCH ×4 (09:39→21:07)
--- NOTE | 2019-01-29 09:43 | PN ---
Date/Time of Note Date/Time of Note DATE: 01/29/19 TIME: 09:38 Assessment/Plan VTE Prophylaxis SCD applied (from Nsg): Yes Pharmacological prophylaxis: other Lines/Catheters IV Catheter Type (from Nrsg): Peripheral IV Assessment/Plan Hospital Course S: No acute events overnight, waiting for paracentesis to be performed. Denies any nausea or vomiting. O: VS- see below PE: GENERAL: well developed and appropriate for usual state of health in no apparent distress HEENT: Pupils equal, round, and reactive to light. EOMI. There is no scleral icterus. NECK: C-spine is soft and supple, there is no meningismus. There is no cerv ical lymphadenopathy. LUNGS: Clear to auscultation bilaterally. There are no rales, wheezes or rhon chi. HEART: S1, S2 heard, no murmurs, clicks, rubs or gallops. ABDOMEN: Moderate abdominal distention. Positive bowel sounds in all four quadrants. No rebound or guarding. EXTREMITIES: no peripheral cyanosis or edema. No focal swelling or erythema. NEUROLOGICAL: No focal deficits Assessment/Plan: 54-year-old female who presented with: 1. Decompensated cryptogenic cirrhosis- likely secondary to Zhang -Patient with recurrent ascites requiring paracentesis. Last one was 3 weeks ago with removal of 3 L -Follow-up results of paracentesis to be performed later during the day -Continue diuretics 2. Diabetes: Last A1c 7.9 -Insulin, Lantus, aspart with meals 3. Paroxysmal A-fib: Rate controlled. INR today 2.18 -patient on Coumadin at home. -Monitor, Coumadin will resume after paracentesis 4. History mitral valve replacement-again patient takes Coumadin at home, last INR this morning 2.18 -Holding Coumadin for paracentesis, afterwards well restarted, monitor INR Result Diagram: 01/29/19 0054 01/29/19 0054 Results 24hrs Laboratory Tests Test 01/29/19 00:54 01/29/19 06:10 01/29/19 07:57 White Blood Count 5.6 Red Blood Count 3.99 L Hemoglobin 11.4 L Hematocrit 36.5 L Mean Corpuscular Volume 91.5 Mean Corpuscular Hemoglobin 28.6 L Mean Corpuscular Hemoglobin Concent 31.2 L Red Cell Distribution Width 14.5 Platelet Count 282 Mean Platelet Volume 10.0 Immature Granulocytes % 0.500 H Neutrophils % 66.8 Lymphocytes % 18.4 Monocytes % 10.0 Eosinophils % 3.6 Basophils % 0.7 Nucleated Red Blood Cells % 0.0 Immature Granulocytes # 0.030 Neutrophils # 3.7 Lymphocytes # 1.0 Monocytes # 0.6 Eosinophils # 0.2 Basophils # 0.0 Nucleated Red Blood Cells # 0.0 Prothrombin Time 24.3 H Prothrombin Time Ratio 1.9 INR International Normalized Ratio 2.18 Activated Partial Thromboplast Time 36.5 H Sodium Level 140 Potassium Level 4.7 Chloride Level 106 Carbon Dioxide Level 22 Anion Gap 12 Blood Urea Nitrogen 26 H Creatinine 1.03 H Est Glomerular Filtrat Rate mL/min 56 L Glucose Level 166 Calcium Level 9.0 Bedside Glucose 155 167 Exam/Review of Systems Exam Vitals Vital Signs Date Temp Pulse Resp B/P (MAP) Pulse Ox O2 O2 Flow FiO2 Time Delivery Rate 01/29/19 97.9 90 20 100/57 90 Room Air 07:11 (71) Intake and Output 01/28/19 01/28/19 01/29/19 1515:00 23:00 07:00 IntakeIntake Total 300 ml BalanceBalance 300 ml Results Results 24hrs Laboratory Tests Test 01/29/19 00:54 01/29/19 06:10 01/29/19 07:57 White Blood Count 5.6 Red Blood Count 3.99 L Hemoglobin 11.4 L Hematocrit 36.5 L Mean Corpuscular Volume 91.5 Mean Corpuscular Hemoglobin 28.6 L Mean Corpuscular Hemoglobin Concent 31.2 L Red Cell Distribution Width 14.5 Platelet Count 282 Mean Platelet Volume 10.0 Immature Granulocytes % 0.500 H Neutrophils % 66.8 Lymphocytes % 18.4 Monocytes % 10.0 Eosinophils % 3.6 Basophils % 0.7 Nucleated Red Blood Cells % 0.0 Immature Granulocytes # 0.030 Neutrophils # 3.7 Lymphocytes # 1.0 Monocytes # 0.6 Eosinophils # 0.2 Basophils # 0.0 Nucleated Red Blood Cells # 0.0 Prothrombin Time 24.3 H Prothrombin Time Ratio 1.9 INR International Normalized Ratio 2.18 Activated Partial Thromboplast Time 36.5 H Sodium Level 140 Potassium Level 4.7 Chloride Level 106 Carbon Dioxide Level 22 Anion Gap 12 Blood Urea Nitrogen 26 H Creatinine 1.03 H Est Glomerular Filtrat Rate mL/min 56 L Glucose Level 166 Calcium Level 9.0 Bedside Glucose 155 167 Medications Medication Current Medications Ondansetron HCl (Zofran Inj) 4 mg ER BRIDGE PRN IV NAUSEA/VOMITING; Start 01/29/19 at 01:30; Stop 01/30/19 at 01:29 Acetaminophen (Tylenol Tab) 650 mg ER BRIDGE PRN PO .MILD PAIN 1-3 OR TEMP; Start 01/29/19 at 01:30; Stop 01/30/19 at 01:29 IV Flush (NS 3 ml) 3 ml PER PROTOCOL IV ; Start 01/29/19 at 04:30 Ondansetron HCl (Zofran Inj) 4 mg Q6H PRN IV NAUSEA/VOMITING; Start 01/29/19 at 04:30 Acetaminophen (Tylenol Tab) 650 mg Q6H PRN PO .PAIN 1-3 OR TEMP; Start 01/29/19 at 04:30 Albuterol/ Ipratropium (Duoneb) 3 ml Q2H RESP THERAPY PRN HHN SHORTNESS OF BREATH; Start 01/29/19 at 04:30 Diagnostic Test (Pha) (Accu-Chek) 1 ea 02 XX ; Start 01/30/19 at 02:00 Insulin Aspart (Novolog Insulin Pen) NOVOLOG *MILD* ALGORITHM WITH MEALS BEDTIME SC Last administered on 01/29/19at 08:25; Admin Dose 1 UNIT; Start 01/29/19 at 07:55 Bumetanide (Bumex) 1 mg BID DIURETICS PO Last administered on 01/29/19at 06:15; Admin Dose 1 MG; Start 01/29/19 at 06:00 Carvedilol (Coreg) 3.125 mg BID PO ; Start 01/29/19 at 09:00 Insulin Glargine (Lantus) 20 units QHS SC ; Start 01/29/19 at 21:00 Pantoprazole (Protonix Tab) 40 mg BID@0600,1800 PO Last administered on 01/29/19at 06:13; Admin Dose 40 MG; Start 01/29/19 at 06:00 Spironolactone (Aldactone) 25 mg BID PO ; Start 01/29/19 at 09:00 Sucralfate (Carafate Susp) 1 gm QID PO ; Start 01/29/19 at 09:00 Atorvastatin Calcium (Lipitor) 10 mg DAILY@21 PO ; Start 01/29/19 at 21:00 Insulin Aspart (Novolog Insulin Pen) 7 unit WITH MEALS SC Last administered on 01/29/19at 08:25; Admin Dose 7 UNIT; Start 01/29/19 at 07:55 Miscellaneous Information 1 ea NOTE XX ; Start 01/29/19 at 05:00 Glucose (Glutose) 15 gm Q15M PRN PO DECREASED GLUCOSE; Start 01/29/19 at 05:00 Glucose (Glutose) 22.5 gm Q15M PRN PO DECREASED GLUCOSE; Start 01/29/19 at 05:00 Dextrose (D50w Syringe) 25 ml Q15M PRN IV DECREASED GLUCOSE; Start 01/29/19 at 05:00 Dextrose (D50w Syringe) 50 ml Q15M PRN IV DECREASED GLUCOSE; Start 01/29/19 at 05:00 Glucagon (Glucagen) 1 mg Q15M PRN IM DECREASED GLUCOSE; Start 01/29/19 at 05:00 Glucose (Glutose) 15 gm Q15M PRN BUCCAL DECREASED GLUCOSE; Start 01/29/19 at 05:00 PIERCE ESPINOZA Jan 29, 2019 09:43
[2019-01-29] MEDS: SPIRONOLACTONE 25 MG TAB PO SCH ×2 (09:48→21:07)
[2019-01-29 11:28] VITALS: BP 111/61; PULSE 89; RESP 20
[2019-01-29] MEDS ORDERED: LIDOCAINE 1% (MPF) 5 ML VIAL ONE (15:10)
[2019-01-29 15:26] VITALS: BP 98/57; PULSE 90; RESP 18
[2019-01-29 19:44] VITALS: BP 118/73; PULSE 92; RESP 19
[2019-01-29] MEDS ORDERED: NON-FORMULARY/PATIENT OWN MED (Simvastatin* (Zocor*) 20 MG) PO SCH (21:00)
[2019-01-29] MEDS ORDERED: WARFARIN 2 MG TAB PO SCH (21:00)
[2019-01-29] MEDS ORDERED: INSULIN GLARGINE [LANTus] (100 UNITS/ML) SYG SC SCH (21:00)
[2019-01-29] MEDS ORDERED: ATORVASTATIN 10 MG TAB PO SCH (21:00)
[2019-01-30 00:03] VITALS: BP 101/57; PULSE 94; RESP 20
[2019-01-30] MEDS ORDERED: ACCU-CHEK XX SCH (02:00)
[2019-01-30 04:00] VITALS: BP 106/56; PULSE 88; RESP 19
[2019-01-30] MEDS: BUMETANIDE 1 MG TAB PO SCH (06:00)
[2019-01-30] MEDS: PANTOPRAZOLE (EC) 40 MG TAB PO SCH (06:00)
[2019-01-30 07:26] VITALS: BP 91/55; PULSE 88; RESP 18
[2019-01-30] MEDS: INSULIN ASPART [NOVOLOG] 3 ML PEN SC SCH ×4 (07:55→13:10)
[2019-01-30] MEDS: SUCRALFATE (100 MG/ML) 10ML CUP PO SCH ×2 (08:47→13:05)
[2019-01-30] MEDS: SPIRONOLACTONE 25 MG TAB PO SCH (08:48)
[2019-01-30 11:14] VITALS: BP 93/52; PULSE 92; RESP 18
--- NOTE | 2019-01-30 12:24 | PDOCDIS ---
Discharge Instructions CONDITION [id number] Patient Condition: [id number] Stable ACTIVITY: [id number] Activity Restrictions: [id number] Slowly Increase Activity Rest between Activity Avoid heavy lifting FOLLOW UP/APPOINTMENTS Follow-up Plan Please take your medications as prescribed, see your doctor in the clinic in the next 1 week. PIERCE ESPINOZA Jan 30, 2019 12:24
--- NOTE | 2019-01-30 12:28 | DS ---
Date/Time of Note Date/Time of Note DATE: 01/30/19 TIME: 12:26 Discharge Summary Admission/Discharge Info Admit Date/Time Jan 29, 2019 at 01:27 Discharge Date/Time Discharge Diagnosis 1. Decompensated cryptogenic cirrhosis- likely secondary to warner -Patient stat us post paracentesis this admission with 8 L removed. 2. Diabetes: Last A1c 7.9 3. Paroxysmal A-fib: Rate controlled. 4. History mitral valve replacement-again patient takes Coumadin at home, INR stable Patient Condition: Stable Hospital Course Patient was admitted and underwent paracentesis because of abdominal ascites found secondary to her cirrhosis. She had 8 L removed. She stated she had less abdominal pain and distention afterwards. Her vital signs are stable. She was continued on her current medications for treatment of her cirrhosis. She also continue Coumadin afterwards and her INR was monitored and it was in the therapeutic range. She was able to ambulate, tolerated p.o. diet, and will be discharged home today in improved condition. See below for full list of discharge medications. Home Meds Active Scripts Warfarin Sod (Coumadin) 2 Mg Tab, 2 MG PO DAILY@1700 for 30 Days, TAB Prov:PIERCE ESPINOZA 01/30/19 Sucralfate* (Carafate*) 1 Gm/10 Ml Susp, 1 GM PO QID, #120 ML 1 Refill Prov:ALFONZO BISHOP 12/07/18 Pantoprazole* (Pantoprazole*) 40 Mg Tablet.dr, 40 MG PO BID@0600,1800, #60 TAB 1 Refill Prov:ALFONZO BISHOP 12/07/18 Carvedilol* (Carvedilol*) 3.125 Mg Tablet, 3.125 MG PO BID, #60 TAB 2 Refills Prov:ALFONZO BISHOP 12/07/18 Spironolactone* (Aldactone*) 25 Mg Tablet, 25 MG PO BID, #60 TAB 2 Refills Prov:ALFONZO BISHOP 12/07/18 Insulin Glargine,Hum.rec.anlog (Basaglar Kwikpen U-100) 100 Unit/1 Ml Insuln.pen, 20 UNIT SC QHS, #6 VIAL 1 Refill Prov:ALFONZO BISHOP 09/16/18 Insulin Lispro (Humalog) 100 Unit/1 Ml Cartridge, 7 UNIT SQ WITH MEALS, #7 VIAL 2 Refills Prov:ALFONZO BISHOP 09/16/18 Reported Medications Bumetanide* (Bumetanide*) 1 Mg Tablet, 1 MG PO BID, TAB 01/10/19 Simvastatin* (Zocor*) 20 Mg Tablet, 20 MG PO QHS, #30 TAB 09/13/18 Sitagliptin* (Januvia*) 50 Mg Tablet, 50 MG PO DAILY, #30 TAB 09/13/18 Discontinued Reported Medications Warfarin Sodium* (Coumadin*) 2 Mg Tablet, 2 MG PO BID, TAB 01/10/19 Follow-up Plan Please take your medications as prescribed, see your doctor in the clinic in the next 1 week. Primary Care Provider [facility] Time spent on discharge: > 30 minutes Pending Labs Laboratory Tests Test 01/29/19 12:36 01/29/19 17:52 01/29/19 21:05 01/30/19 05:34 Bedside 163 138 131 Glucose mg/dL (70-220) mg/dL (70-220) mg/dL (70-220) White Blood 4.9 Count 10^3/ul (4.8-1 0.8) Red Blood 3.92 Count 10^6/ul (4.20- 5.40) Hemoglobin 10.9 g/dl (12.0-16. 0) Hematocrit 36.4 % (37.0-47.0) Mean 92.9 Corpuscular fl (82.0-101.0 Volume ) Mean 27.8 Corpuscular pg (29.0-33.0) Hemoglobin Mean 29.9 Corpuscular g/dl (32.0-37. Hemoglobin Conc 0) ent Red Cell 14.6 Distribution % (11.5-14.5) Width Platelet Count 245 10^3/UL (140-4 15) Mean Platelet 10.4 Volume fl (7.4-10.4) Immature 0.400 Granulocytes % % (0.001-0.429 ) Neutrophils % 62.5 % (39.0-77.0) Lymphocytes % 20.9 % (15.0-51.0) Monocytes % 11.9 % (0.0-11.0) Eosinophils % 3.5 % (0.0-7.0) Basophils % 0.8 % (0.0-2.0) Nucleated Red 0.0 Blood Cells % /100WBC (0.0-0 .0) Immature 0.020 Granulocytes # 10^3/ul (0.0-0 .031) Neutrophils # 3.1 10^3/ul (1.6-7 .5) Lymphocytes # 1.0 10^3/ul (0.8-2 .9) Monocytes # 0.6 10^3/ul (0.3-0 .9) Eosinophils # 0.2 10^3/ul (0.0-0 .5) Basophils # 0.0 10^3/ul (0.0-0 .1) Nucleated Red 0.0 Blood Cells # 10^3/ul (0.0-0 .0) Prothrombin 25.5 Time Sec (11.9-14.9 ) Prothrombin 2.0 Time Ratio INR 2.32 International Normalized Rati o Sodium Level 141 mmol/L (135-14 4) Potassium 4.3 Level mmol/L (3.5-5. 1) Chloride Level 104 mmol/L (97-110 ) Carbon Dioxide 28 Level mmol/L (21-31) Anion Gap 9 (5-13) Blood Urea 25 Nitrogen mg/dl (7-20) Creatinine 1.10 mg/dl (0.44-1. 00) Est Glomerular 52 Filtrat mL/min (>60) Rate mL/min Glucose Level 125 mg/dl (70-220) Calcium Level 8.8 mg/dl (8.4-10. 2) Phosphorus 4.9 Level mg/dl (2.5-4.9 ) Magnesium 1.7 Level mg/dl (1.7-2.5 ) Total 0.6 Bilirubin mg/dl (0.2-1.3 ) Direct 0.00 Bilirubin mg/dl (0.00-0. 20) Indirect 0.6 Bilirubin mg/dl (0-1.1) Aspartate Amino 28 Transf (AST/SGO IU/L (15-46) T) Alanine 18 Aminotransferas IU/L (13-69) e (ALT/SGPT) Alkaline 90 Phosphatase IU/L (42-121) Total Protein 6.4 g/dl (6.1-8.1) Albumin 3.2 g/dl (3.3-4.9) Globulin 3.20 g/dl (1.3-3.2) Albumin/Globuli 1.00 n Ratio Test 01/30/19 08:08 Bedside 132 Glucose mg/dL (70-220) PIERCE ESPINOZA Jan 30, 2019 12:28
[2019-01-30] MEDS ORDERED: WARFARIN 2 MG TAB PO SCH (17:00)
== END 2019-01-30 15:20 | disposition home or self-care (01) | DRG 433 ==
LOC: E/R 21:47 → TEL 01-29 01:27
PROVIDERS: ADMIT Internal Medicine; ATTEND Hospitalist
PROC: 0W9G3ZZ Drainage of Peritoneal Cavity, Percutaneous Approach (ICD-10-PCS; principal; 2019-01-29)
DX: K74.69 Other cirrhosis of liver (principal); R18.8 Other ascites; K75.81 Nonalcoholic steatohepatitis (NASH); E11.9 Type 2 diabetes mellitus without complications; I48.0 Paroxysmal atrial fibrillation; Z79.01 Long term (current) use of anticoagulants; Z95.2 Presence of prosthetic heart valve
CPT/HCPCS: 71045; 80048; 80053; 82962; 83735; 84100; 85025; 85610; 85730; J1815